=== PATIENT | female | born 1945 | race American Indian/Alaskan Native ===

== ENCOUNTER 2017-06-08 13:41 | Inpatient (IN) | payer MEDICARE, BC ==
[2017-06-08 13:46] VITALS: BMI 23.8
[2017-06-08] MEDS ORDERED: Albuterol-Ipratrop 3 mg / 0.5 (3 ml) UD IH STA ×2 (13:57→17:51)
--- NOTE | 2017-06-08 14:04 | ED PDOC ---
Arrival/HPI - General Chief Complaint: Shortness Of Breath Time Seen by Provider: 06/08/17 13:50 Historian: Patient - Critical Care Critical Care Minutes: 30 minutes - History of Present Illness Narrative History of Present Illness (Text): 06/08/17 14:02 72 year old female, whose past medical history includes, asthma, COPD, pulmonary hypertension, and CHF presents to the emergency department complaining of shortness of breath for the past 3 days. Patient reports she's been using her nebulizer at home with no relief. Patient reports cough congestion, but denies ever smoking, drinking, any chest pain, fever, chills, edema, nausea, vomiting, headache, dizziness, or any other complaints. Time/Duration: Other (3 days ) Symptom Onset: Gradual Symptom Course: Unchanged Activities at Onset: Light Context: Home Associated Symptoms (Text): 06/08/17 14:26 Several day history of increasing shortness of breath along with cough congestion and URI. No chest or back pain. No relief with her home nebulizer. No fever or chills. Past Medical History - Provider Review Nursing Documentation Reviewed: Yes - Infectious Disease Hx of Infectious Diseases: None - Tetanus Immunization Tetanus Immunization: Unknown - Reproductive Menopause: Yes - Cardiac Hx Hypertension: Yes - Pulmonary Hx Chronic Obstructive Pulmonary Disease (COPD): Yes - Neurological Hx Neurological Disorder: Yes (Concussion) - HEENT Hx HEENT Disorder: No - Renal Hx Renal Disorder: No - Endocrine/Metabolic Hx Hypothyroidism: Yes - Hematological/Oncological Hx Blood Disorders: No - Integumentary Hx Dermatological Disorder: No - Musculoskeletal/Rheumatological Hx Falls: Yes (past) - Gastrointestinal Hx Gastrointestinal Disorders: No - Genitourinary/Gynecological Hx Reproductive Disorders: Yes (hyst) - Psychiatric Hx Psychophysiologic Disorder: No Hx Substance Use: No - Surgical History Hx Hysterectomy: Yes - Anesthesia Hx Anesthesia: Yes Hx Anesthesia Reactions: No Hx Malignant Hyperthermia: No - Suicidal Assessment Feels Threatened In Home Enviroment: No Family/Social History - Physician Review Nursing Documentation Reviewed: Yes Family/Social History: No Known Family HX Smoking Status: Never Smoked Hx Alcohol Use: No Hx Substance Use: No Hx Substance Use Treatment: No Allergies/Home Meds Allergies/Adverse Reactions: Allergies peanut Allergy (Verified 01/20/16 18:02) ANAPHYLAXIS Home Medications: Home Meds Medication Instructions Recorded Confirmed Levothyroxine [Synthroid] 0.05 mg PO DAILY 03/15/14 06/08/17 Simvastatin 10 mg PO DAILY 03/15/14 06/08/17 Aspirin 325 mg PO DAILY 10/06/15 06/08/17 Review of Systems - Physician Review All systems were reviewed & negative as marked: Yes - Review of Systems Constitutional: absent: Fevers, Other (Chills) Respiratory: SOB, Cough (cough congestion), Wheezing. absent: Sputum Cardiovascular: absent: Chest Pain, Palpitations, Syncope Gastrointestinal: absent: Abdominal Pain, Diarrhea, Nausea, Vomiting Musculoskeletal: absent: Other ((-)Edema) Neurological: absent: Headache, Dizziness Physical Exam Vital Signs Reviewed: Yes Vital Signs Temp Pulse Resp BP Pulse Ox 06/08/17 17:44 18 131/80 06/08/17 16:54 131/80 06/08/17 16:16 98.1 F 89 26 H 130/80 94 L 06/08/17 14:27 99.3 F 96 H 22 124/72 91 L 06/08/17 14:10 26 H 74 L Temperature: Afebrile Blood Pressure: Normal Pulse: Regular Respiratory Rate: Tachypneic Appearance: Positive for: Well-Appearing, Uncomfortable Pain Distress: None Mental Status: Positive for: Alert and Oriented X 3 - Systems Exam Head: Present: Atraumatic, Normocephalic Pupils: Present: PERRL Extroacular Muscles: Present: EOMI Conjunctiva: Present: Normal Ears: Present: NORMAL TM. No: Erythema Mouth: Present: Moist Mucous Membranes Pharnyx: No: ERYTHEMA, EXUDATE, TONSILS ENLARGED Neck: Present: Normal Range of Motion Respiratory/Chest: Present: Respiratory Distress (Mild Respiratory Distress), Accessory Muscle Use (with no extractions ), Wheezes (Wheezing bilterally ), Decreased Breath Sounds, Rhonchi (Rhonchi Bilaterally ), Tachypneic. No: Rales , Retracting, Tender to Palpation Cardiovascular: Present: Regular Rate and Rhythm, Normal S1, S2. No: Murmurs Abdomen: Present: Normal Bowel Sounds. No: Tenderness, Distention, Peritoneal Signs, Rebound, Guarding Back: Present: Normal Inspection Upper Extremity: Present: Normal Inspection. No: Cyanosis, Edema Lower Extremity: Present: Normal Inspection. No: Edema Neurological: Present: GCS=15, CN II-XII Intact, Speech Normal, Motor Func Grossly Intact Skin: Present: Warm, Dry, Normal Color. No: Rashes Psychiatric: Present: Alert, Oriented x 3, Normal Insight, Normal Concentration Medical Decision Making ED Course and Treatment: 06/08/17 14:09 Impression: 72 year old female presents complaining of shortness of breath for the past 3 days. Plan: -- ABG -- EKG -- Labs -- Chest X-ray -- Duoneb -- SOLU-Medrol -- O2 via Nasal Cannula -- Reassess and disposition Prior Visits: Notes and results from previous visits were reviewed. Patient was last seen in the emergency department on 01/20/16 presents complaining of shortness of breath for the past few days. Progress Notes: 06/08/17 14:28 EKG shows normal sinus rhythm rate approximately 100 with LVH and no acute ST or T-wave changes similar to EKG of 01/20/2016 06/08/17 16:34 Discussed with Ayla Hernandez Litinski who treated the patient in the emergency department. Admitted to ICU. has been called. 06/08/17 16:37 I do not feel that the patient needs intubation or BiPAP based on clinical indications, even though the patient has hypercarbia. She reports that she feels better after high flow respiratory treatment. She is awake and alert. 06/08/17 17:59 Discussed with , covering for . - Critical Care Critical Care Minutes: 30 minutes - Lab Interpretations Lab Results: 06/08/17 02:30 06/08/17 02:30 Lab Results 06/08/17 14:21: pCO2 112 H*, pO2 73.0 L, HCO3 48.0 H*, ABG pH 7.24 L, ABG Total CO2 51.4 H, ABG O2 Saturation 96.5, ABG O2 Content 10.6 L, ABG Base Excess 17.9 H, ABG Hemoglobin 8.0 L, ABG Carboxyhemoglobin 2.9 H, POC ABG HHb (Measured) 3.4 , ABG Methemoglobin 0.6, ABG O2 Capacity 11.0 L, Hgb O2 Saturation 93.1 L, FiO2 21.0 06/08/17 02:30: Sodium 138, Potassium 4.0, Chloride 90 L, Carbon Dioxide 45 H D , Anion Gap 7 L, BUN 17, Creatinine 0.5 L, Est GFR ( Amer) > 60, Est GFR (Non-Af Amer) > 60, Random Glucose 115 H, Calcium 9.3, Total Bilirubin 0.6, AST 35, ALT 41, Alkaline Phosphatase 53, Lactate Dehydrogenase 538, Total Creatine Kinase 89, Troponin I 0.02 D, NT-Pro-B Natriuret Pep 4020 H, Total Protein 7.8 , Albumin 4.4, Globulin 3.5, Albumin/Globulin Ratio 1.3 06/08/17 02:30: PT 12.6 H, INR 1.15 H, APTT 31.3 06/08/17 02:30: WBC 7.1, RBC 3.82, Hgb 8.0 L, Hct 29.8 L, MCV 78.0 L, MCH 20.9 L , MCHC 26.8 L, RDW 17.7 H, Plt Count 313, MPV 10.3, Gran % 67.7, Lymph % (Auto) 21.3 L, [place] % (Auto) 10.9 H, Eos % (Auto) 0.0 L, Baso % (Auto) 0.1, Gran # 4.79 , Lymph # 1.5, [place] # 0.8 H, Eos # 0.0, Baso # 0.01 I have reviewed the lab results: Yes - RAD Interpretation Radiology Orders: 06/08/17 13:56 CHEST PORTABLE [RAD] Stat Chest 1 view shows no infiltrate effusion or cardiomegaly Supervisor Compressed Yeast: ED Physician - EKG Interpretation Interpreted by ED Physician: Yes Type: 12 lead EKG - Medication Orders Current Medication Orders: Doxycycline Hyclate 100 mg/ (Sodium Chloride) 100 mls @ 100 mls/hr IVPB Q12 [facility] PRN Reason: Protocol Ceftriaxone Sodium (Rocephin 1 Gram Ivpb) 1 gm in 100 mls @ 100 mls/hr IVPB DAILY [facility] PRN Reason: Protocol Methylprednisolone (Solu-Medrol) 40 mg IVP Q6H [facility] Pantoprazole Sodium (Protonix Ec Tab) 40 mg PO 0600,1600 [facility] Discontinued Medications Albuterol/Ipratropium (Duoneb 3 Mg/0.5 Mg (3 Ml) Ud) 3 ml IH ONCE STA Stop: 06/08/17 13:58 Last Admin: 06/08/17 14:07 Dose: 3 ml Albuterol/Ipratropium (Duoneb 3 Mg/0.5 Mg (3 Ml) Ud) 6 ml IH STAT STA Stop: 06/08/17 17:52 Enoxaparin Sodium (Lovenox) 40 mg SC STAT STA PRN Reason: Protocol Stop: 06/08/17 17:18 Furosemide (Lasix) 40 mg IVP ONCE ONE Stop: 06/08/17 15:30 Last Admin: 06/08/17 16:54 Dose: 40 mg MAR Blood Pressure Document 06/08/17 16:54 RG (Rec: 06/08/17 16:54 RG [id number]) Blood Pressure Blood Pressure (100/60-150/90 mm Hg) 131/80 IVP Administration Document 06/08/17 16:54 RG (Rec: 06/08/17 16:54 RG [id number]) Charges for Administration # of IVP Administrations 1 Ceftriaxone Sodium (Rocephin 1 Gram Ivpb) 1 gm in 100 mls @ 200 mls/hr IVPB STAT STA PRN Reason: Protocol Stop: 06/08/17 16:26 Last Admin: 06/08/17 17:12 Dose: 200 mls/hr eMAR Start Stop Document 06/08/17 17:12 RG (Rec: 06/08/17 17:12 RG [id number]) Intravenous Solution Start Date 06/08/17 Start Time 17:12 Methylprednisolone (Solu-Medrol) 125 mg IVP STAT STA Stop: 06/08/17 13:57 Last Admin: 06/08/17 14:08 Dose: 125 mg IVP Administration Document 06/08/17 14:08 RG (Rec: 06/08/17 14:08 RG [id number]) Charges for Administration # of IVP Administrations 1 - Scribe Statement The provider has reviewed the documentation as recorded by the Sandy Burns Provider Scribe Attestation: All medical record entries made by the Scribe were at my direction and personally dictated by me. I have reviewed the chart and agree that the record accurately reflects my personal performance of the history, physical exam, medical decision making, and the department course for this patient. I have also personally directed, reviewed, and agree with the discharge instructions and disposition. Disposition/Present on Arrival - Present on Arrival Any Indicators Present on Arrival: No History of DVT/PE: No History of Uncontrolled Diabetes: No Urinary Catheter: No History of Decub. Ulcer: No History Surgical Site Infection Following: None - Disposition Have Diagnosis and Disposition been Completed?: Yes Diagnosis: Hypercapnia, COPD exacerbation, Congestive heart failure (CHF), Asthma exacerbation, Hypercapnic respiratory failure, Respiratory distress Disposition: HOSPITALIZED Disposition Time: 16:36 Patient Plan: Admission, ICU Patient Problems: Current Active Problems Problem Status Onset Asthma exacerbation Acute COPD exacerbation Acute Congestive heart failure (CHF) Acute Hypercapnia Acute Hypercapnic respiratory failure Acute Respiratory distress Acute Condition: CRITICAL
[2017-06-08 14:25] LABS: ARTERIAL BLOOD GAS O2 CONTENT 10.6 ML/dl (15-23); ARTERIAL BLOOD GAS PH 7.24 (7.35-7.45); ARTERIAL BLOOD HGB O2 SAT 93.1 % (95.0-98.0); CARBOXYHEMOGLOBIN 2.9 % (0.5-1.5); HHB 3.4 % (0-5); METHEMOGLOBIN 0.6 % (0.0-3.0)
--- NOTE | 2017-06-08 14:58 | CARD ---
APPROVED REPORT EKG Measurement Heart [id number] <Conclusion> Sinus tachycardia Left ventricular hypertrophy with repolarization abnormality Abnormal ECG
[2017-06-08 15:23] LABS: BASO # 0.01 K/mm3 (0.0-2.0); BASO % 0.1 % (0.0-3.0); GRAN # 4.79 (1.4-6.5); GRAN % 67.7 % (50.0-68.0); HEMATOCRIT 29.8 % (36.0-48.0); INR 1.15 (0.93-1.08); LYMPH # 1.5 (1.2-3.4); LYMPH % 21.3 % (22.0-35.0); MEAN CORPUSCULAR HEMOGLOBIN 20.9 pg (25.0-35.0); MEAN CORPUSCULAR HGB CONC 26.8 g/dl (31.0-37.0); MEAN PLATELET VOLUME 10.3 fl (7.0-11.0); MONO # 0.8 (0.1-0.6); MONO % 10.9 % (1.0-6.0); PARTIAL THROMBOPLASTIN TIME 31.3 Seconds (25.1-36.5); RED CELL DISTRIBUTION WIDTH 17.7 % (11.5-14.5); WHITE BLOOD COUNT 7.1 10^3/ul (4.5-11.0)
[2017-06-08 15:27] LABS: TROPONIN I 0.02 ng/mL
[2017-06-08] MEDS ORDERED: cefTRIAXone 1 gm 1 GM/100 ML BAG IVPB STA (15:57)
[2017-06-08 16:13] LABS: BLOOD UREA NITROGEN 17 mg/dL (7-21); CALCIUM 9.3 mg/dL (8.4-10.5); CARBON DIOXIDE 45 mmol/L (21-33); CHLORIDE 90 mmol/L (98-107); GFR AFRICAN-AMERICAN > 60; GLUCOSE,RANDOM 115 mg/dL (70-110); SODIUM 138 mmol/L (132-148); TOTAL PROTEIN 7.8 g/dL (5.8-8.3)
[2017-06-08 16:14] LABS: ALKALINE PHOSPHATASE 53 U/L (38-126); ALT/SGPT 41 U/L (7-56); AST/SGOT 35 U/L (14-36); BILIRUBIN,TOTAL 0.6 mg/dL (0.2-1.3)
[2017-06-08] MEDS ORDERED: Enoxaparin 40 mg Syringe SC STA (17:17)
--- NOTE | 2017-06-08 18:04 | RAD ---
HISTORY: sob COMPARISON: 01/21/2016 FINDINGS: LUNGS: No active pulmonary disease. PLEURA: No significant pleural effusion identified, no pneumothorax apparent. CARDIOVASCULAR: Normal. OSSEOUS STRUCTURES: No significant abnormalities. VISUALIZED UPPER ABDOMEN: Normal. OTHER FINDINGS: None. IMPRESSION: No active disease.
[2017-06-08] MEDS: MethylPREDNISolone 40 mg Vial IVP SCH ×2 (18:25→22:38)
--- NOTE | 2017-06-08 18:39 | CP.PCM.CON ---
<Zaheer Ballard - Last Filed: 06/08/17 18:33> History of Present Illness - History of Present Illness History of Present Illness: Zaheer Ballard D.O. PGY-2, Critical Care Consultation 72 year old female with a PMH of asthma, COPD, pulmonary hypertension, and diastolic CHF who presents to [facility] with complaints of shortness of breath for the past 2-3 days. Patient was seen and examined at bedside with son present. Patient is somewhat lethargic but is arousable and able to answer questions. Patient has been having progressively worsening shortness of breath over these last few days despite using her nebulizers at home. Some coughing noted but non- productive. Patient has required intubation multiple times in the past for similar issues. Patient usually follows outpatient with Dr. Sanchez for pulmonology and Dr. Parry for cardiology for a "heart murmur." No recent changes in medications, recent travel, or sick contacts. Review of Systems - Constitutional Constitutional: absent: Anorexia, Chills - EENT Eyes: absent: Blind Spots, Blurred Vision Ears: absent: Decreased Hearing, Ear Discharge Nose/Mouth/Throat: absent: Epistaxis, Nasal Congestion - Cardiovascular Cardiovascular: Dyspnea. absent: Chest Pain, Diaphoresis, Leg Edema - Respiratory Respiratory: Cough, Dyspnea. absent: Hemoptysis - Gastrointestinal Gastrointestinal: absent: Nausea, Vomiting - Genitourinary Genitourinary: absent: Dysuria, Pyuria - Musculoskeletal Musculoskeletal: absent: Numbness, Tingling - Integumentary Integumentary: absent: Pruritus, Rash - Neurological Neurological: Confusion. absent: Focal Weakness Past Patient History - Infectious Disease Hx of Infectious Diseases: None - Tetanus Immunizations Tetanus Immunization: Unknown - Past Social History Smoking Status: Never Smoked - CARDIAC Hx Hypertension: Yes - PULMONARY Hx Chronic Obstructive Pulmonary Disease (COPD): Yes - NEUROLOGICAL Hx Neurological Disorder: Yes (Concussion) - HEENT Hx HEENT Problems: No - RENAL Hx Chronic Kidney Disease: No - ENDOCRINE/METABOLIC Hx Hypothyroidism: Yes - HEMATOLOGICAL/ONCOLOGICAL Hx Blood Disorders: No - INTEGUMENTARY Hx Dermatological Problems: No - MUSCULOSKELETAL/RHEUMATOLOGICAL Hx Falls: Yes (past) - GASTROINTESTINAL Hx Gastrointestinal Disorders: No - GENITOURINARY/GYNECOLOGICAL Hx Reproductive Disorders: Yes (hyst) - PSYCHIATRIC Hx Psychophysiologic Disorder: No Hx Substance Use: No - SURGICAL HISTORY Hx Hysterectomy: Yes - ANESTHESIA Hx Anesthesia: Yes Hx Anesthesia Reactions: No Hx Malignant Hyperthermia: No Meds Allergies/Adverse Reactions: Allergies Allergy/AdvReac Type Severity Reaction Status Date / Time peanut Allergy ANAPHYLAXIS Verified 01/20/16 18:02 - Medications Medications: Current Medications Doxycycline Hyclate 100 mg/ (Sodium Chloride) 100 mls @ 100 mls/hr IVPB Q12 [facility] PRN Reason: Protocol Ceftriaxone Sodium (Rocephin 1 Gram Ivpb) 1 gm in 100 mls @ 100 mls/hr IVPB DAILY [facility] PRN Reason: Protocol Methylprednisolone (Solu-Medrol) 40 mg IVP Q6H [facility] Last Admin: 06/08/17 18:25 Dose: Not Given Pantoprazole Sodium (Protonix Ec Tab) 40 mg PO 0600,1600 [facility] Physical Exam - Constitutional Appears: No Acute Distress - Head Exam Head Exam: ATRAUMATIC, NORMOCEPHALIC - Eye Exam Eye Exam: EOMI, PERRL. absent: Scleral icterus - ENT Exam ENT Exam: Mucous Membranes Moist, Normal Oropharynx - Neck Exam Neck exam: Positive for: Normal Inspection. Negative for: Tenderness - Respiratory Exam Respiratory Exam: Wheezes (diffuse). absent: Rales, Rhonchi - Cardiovascular Exam Cardiovascular Exam: REGULAR RHYTHM, +S1, +S2, Systolic Murmur (3/6). absent: Gallop, Rubs - GI/Abdominal Exam GI & Abdominal Exam: Normal Bowel Sounds, Soft. absent: Distended, Tenderness - Extremities Exam Extremities exam: Positive for: normal capillary refill, pedal pulses present. Negative for: calf tenderness, tenderness - Back Exam Back exam: absent: CVA tenderness (L), CVA tenderness (R) - Neurological Exam Additional comments: awake, lethargic but arousable, follows commands, AAOx3(not to time, but to person/place/situation), coherent speech - Skin Skin Exam: Dry, Warm Results - Vital Signs Recent Vital Signs: Last Vital Signs Temp 98.1 F 06/08/17 16:16 Pulse 89 06/08/17 16:16 Resp 18 06/08/17 17:44 BP 131/80 06/08/17 17:44 Pulse Ox 94 L 06/08/17 16:16 - Labs Result Diagrams: 06/08/17 02:30 06/08/17 02:30 Assessment & Plan - Assessment and Plan (Free Text) Assessment: 72 year old female with a PMH of asthma, COPD, pulmonary hypertension, and diastolic CHF who presents with complaints of shortness of breath for the past 2 -3 days Plan: Neurologic AAOx3(person/place/situation but not time), otherwise nonfocal Likely CO2 narcosis which will resolve with treatment Will obtain neurochecks q4x6 and monitor closely Cardiovascular Previous echo 01/03/17 shows EF 66%, LVH with good LV function, moderately dilated LA, mild-mod MR, mild TR, and moderate pulmonary HTN RVSP [id number] Parry consulted Troponins negative, will trend BNP elevated HD stable at this time Will start furosemide 40qd Cont monitor clinically Pulmnologic Acute on chronic hypercapnic respiratory distress with acidosis, very elevated pco2 and , improved with duonebs and solumedrol Will start on doxycyline and ceftriaxone D1 Continue solumedrol 40q6 Continue nebs KRISTINE and PRN, will give a double dose now Will start BIPAP 06/25/30%/12 HOB 30 Repeat ABG in 4 hours and tomorrow AM GI NPO given mental status Cont GI ppx Heme Hgb lower than known baseline 4 months ago No active signs of bleeding HD stable F/U CBC tomorrow AM Nephro/Electrolytes BUN and Cr intact No electrolyte abnormalities Will monitor IxOs GI/DVT ppx: protonix/SCDs Patient was seen and examined and case was discussed at length with attending physician. - Date & Time Date: 06/08/17 Time: 18:00 <Ronny Rodriguez - Last Filed: 06/12/17 17:30> Meds - Medications Medications: Current Medications Acetazolamide (Diamox 250 Mg Tab) 250 mg PO BID [facility] Last Admin: 06/12/17 12:19 Dose: 250 mg Benzonatate (Tessalon Perles) 200 mg PO TID [facility] Last Admin: 06/12/17 15:35 Dose: 200 mg Enoxaparin Sodium (Lovenox) 40 mg SC DAILY [facility] PRN Reason: Protocol Last Admin: 06/12/17 10:34 Dose: 40 mg Ergocalciferol (Drisdol 50,000 Intl Units Cap) 1 cap PO Q7D [facility] Last Admin: 06/11/17 20:24 Dose: 1 cap Doxycycline Hyclate 100 mg/ (Sodium Chloride) 100 mls @ 100 mls/hr IVPB Q12 [facility] PRN Reason: Protocol Last Admin: 06/12/17 10:35 Dose: 100 mls/hr Ceftriaxone Sodium (Rocephin 1 Gram Ivpb) 1 gm in 100 mls @ 100 mls/hr IVPB DAILY [facility] PRN Reason: Protocol Last Admin: 06/12/17 10:34 Dose: 100 mls/hr Iron Sucrose 200 mg/ Sodium (Chloride) 110 mls @ 110 mls/hr IVPB DAILY [facility] Stop: 06/13/17 10:59 Last Admin: 06/12/17 10:11 Dose: 110 mls/hr Levalbuterol HCl (Xopenex) 0.63 mg IH [id number] PRN PRN Reason: Shortness of Breath Methylprednisolone (Solu-Medrol) 20 mg IVP Q12 [facility] Last Admin: 06/12/17 10:33 Dose: 20 mg Pantoprazole Sodium (Protonix Ec Tab) 40 mg PO 0600,1600 [facility] Last Admin: 06/12/17 15:35 Dose: 40 mg Polyethylene Glycol (Miralax) 17 gm PO BID [facility] Last Admin: 06/12/17 10:34 Dose: 17 gm Results - Vital Signs Recent Vital Signs: Last Vital Signs Temp 98.4 F 06/12/17 16:00 Pulse 70 06/12/17 16:00 Resp 18 06/12/17 16:00 BP 134/82 06/12/17 16:00 Pulse Ox 98 06/12/17 16:00 - Labs Result Diagrams: 06/12/17 07:35 06/12/17 12:00 Labs: Laboratory Results - last 24 hr 06/12/17 06/12/17 06/12/17 07:35 07:35 12:00 WBC 5.4 RBC 4.43 Hgb 10.5 L Hct 36.4 MCV 82.2 MCH 23.7 L MCHC 28.8 L RDW 18.4 H Plt Count 213 MPV 11.2 H Gran % 72.4 H Lymph % (Auto) 20.0 L [place] % (Auto) 7.6 H Eos % (Auto) 0.0 L Baso % (Auto) 0.0 Gran # 3.90 Lymph # 1.1 L [place] # 0.4 Eos # 0.0 Baso # 0.00 Sodium 138 138 Potassium 4.5 4.3 Chloride 95 L 93 L Carbon Dioxide 42 H 40 H Anion Gap 6 L 9 L BUN 19 19 Creatinine 0.5 L 0.6 L Est GFR ( Amer) > 60 > 60 Est GFR (Non-Af Amer) > 60 > 60 Random Glucose 82 99 Calcium 9.4 9.6 Phosphorus 2.9 Magnesium 2.3 H Total Bilirubin 0.6 0.8 Direct Bilirubin 0.6 H AST 28 31 ALT 42 49 Alkaline Phosphatase 49 59 Lactate Dehydrogenase 424 Total Creatine Kinase 24 L Troponin I < 0.01 D NT-Pro-B Natriuret Pep 1360 H Total Protein 6.6 7.1 Albumin 3.6 3.9 Globulin 3.0 3.2 Albumin/Globulin Ratio 1.2 1.2 Attending/Attestation - Attestation I have personally seen and examined this patient.: Yes I have fully participated in the care of the patient.: Yes I have reviewed all pertinent clinical information: Yes Notes (Text): 06/12/17 17:29 72 yo female with asthma exacerbation in the setting of CAP. Will take to ICU--> serial ABG, bronchodilators, steroid taper, abx, bpap. low threshold for intubation ccm time 40 min
[2017-06-08] MEDS ORDERED: Albuterol-Ipratrop 3 mg / 0.5 (3 ml) UD IH PRN (18:49)
[2017-06-08 19:05] LABS: TROPONIN I 0.02 ng/mL
[2017-06-08 19:36] LABS: PHOSPHOROUS 4.6 mg/dL (2.5-4.5)
[2017-06-08] MEDS ORDERED: Albuterol-Ipratrop 3 mg / 0.5 (3 ml) UD IH SCH (20:00)
[2017-06-08 20:43] LABS: T4 6.3 ug/dL (5.5-11.0)
[2017-06-08 20:44] LABS: FREE T4 0.87 ng/dL (0.78-2.19); THYROID STIMULATING HORMONE 2.46 mIU/mL (0.46-4.68)
[2017-06-08 21:51] LABS: TROPONIN I 0.03 ng/mL
[2017-06-08 21:55] LABS: ARTERIAL BLOOD GAS O2 CAPACITY 11.3 mL/dl (16-24); ARTERIAL BLOOD GAS O2 CONTENT 10.7 ML/dl (15-23); ARTERIAL BLOOD GAS PH 7.26 (7.35-7.45); ARTERIAL BLOOD HGB O2 SAT 90.8 % (95.0-98.0); CARBOXYHEMOGLOBIN 2.9 % (0.5-1.5); HHB 5.1 % (0-5); METHEMOGLOBIN 1.2 % (0.0-3.0)
[2017-06-08 21:57] LABS: ARTERIAL BLOOD GAS HCO3 50.7 mmol/L (21-28)
[2017-06-08 23:02] LABS: URIC ACID 2.8 mg/dL (2.5-6.2)
[2017-06-09] MEDS ORDERED: Sodium Chloride 0.9% 500 ML IV STA (00:21)
[2017-06-09 00:47] LABS: ARTERIAL BLOOD GAS O2 CAPACITY 11.8 mL/dl (16-24); ARTERIAL BLOOD GAS O2 CONTENT 11.6 ML/dl (15-23); ARTERIAL BLOOD GAS PH 7.29 (7.35-7.45); ARTERIAL BLOOD HGB O2 SAT 93.8 % (95.0-98.0); METHEMOGLOBIN 1.2 % (0.0-3.0)
[2017-06-09] MEDS ORDERED: Digoxin 500 mcg/2ml (0.5 mg/2ml) Inj IVP STA ×2 (01:00→01:36)
[2017-06-09 01:04] LABS: ALB/GLOB RATIO 1.2 (1.1-1.8); ALKALINE PHOSPHATASE 63 U/L (38-126); ALT/SGPT 33 U/L (7-56); AST/SGOT 36 U/L (14-36); BILIRUBIN,DIRECT 0.5 mg/dL (0.0-0.4); BILIRUBIN,TOTAL 0.5 mg/dL (0.2-1.3); BLOOD UREA NITROGEN 17 mg/dL (7-21); CALCIUM 9.1 mg/dL (8.4-10.5); CHLORIDE 84 mmol/L (98-107); CHOLESTEROL 207 mg/dL (130-200); GFR AFRICAN-AMERICAN > 60; GLUCOSE,RANDOM 153 mg/dL (70-110); PHOSPHOROUS 5.2 mg/dL (2.5-4.5); POTASSIUM 3.9 mmol/L (3.6-5.0); SODIUM 139 mmol/L (132-148); TOTAL PROTEIN 8.1 g/dL (5.8-8.3)
[2017-06-09 01:13] LABS: GRAN # 6.84 (1.4-6.5); GRAN % 93.8 % (50.0-68.0); HEMATOCRIT 35.4 % (36.0-48.0); LYMPH # 0.4 (1.2-3.4); LYMPH % 5.8 % (22.0-35.0); MEAN CORPUSCULAR HEMOGLOBIN 20.8 pg (25.0-35.0); MEAN CORPUSCULAR HGB CONC 25.1 g/dl (31.0-37.0); MEAN PLATELET VOLUME 10.5 fl (7.0-11.0); MONO % 0.4 % (1.0-6.0); PLATELET COUNT 322 10^3/uL (120.0-450.0); WHITE BLOOD COUNT 7.3 10^3/ul (4.5-11.0)
[2017-06-09 01:17] LABS: CARBON DIOXIDE 45 mmol/L (21-33)
[2017-06-09 01:21] LABS: MEAN CELL VOLUME 82.7 fl (80.0-105.0)
[2017-06-09 01:23] LABS: ALB/GLOB RATIO 1.2 (1.1-1.8)
[2017-06-09 01:37] LABS: ARTERIAL BLOOD GAS HCO3 47.1 mmol/L (21-28)
[2017-06-09 01:44] VITALS: PULSE 139
[2017-06-09 01:48] LABS: TROPONIN I 0.02 ng/mL
[2017-06-09 01:58] LABS: ALB/GLOB RATIO 1.2 (1.1-1.8); ALKALINE PHOSPHATASE 65 U/L (38-126); ALT/SGPT 43 U/L (7-56); AST/SGOT 32 U/L (14-36); BAND 4 % (0-2); BILIRUBIN,TOTAL 0.4 mg/dL (0.2-1.3); BLOOD UREA NITROGEN 17 mg/dL (7-21); CALCIUM 9.4 mg/dL (8.4-10.5); CHLORIDE 85 mmol/L (98-107); GFR AFRICAN-AMERICAN > 60; GLUCOSE,RANDOM 135 mg/dL (70-110); NEUTROPHIL 90 % (50.0-70.0); PHOSPHOROUS 4.8 mg/dL (2.5-4.5); SODIUM 139 mmol/L (132-148); TOTAL PROTEIN 8.3 g/dL (5.8-8.3)
[2017-06-09 01:59] LABS: ANISOCYTOSIS SLIGHT; HYPOCHROMIA 2+; NUCLEATED RED BLOOD CELL 1 %; OVALOCYTES SLIGHT; PLATELET ESTIMATE NORMAL (NORMAL)
[2017-06-09 02:01] LABS: CARBON DIOXIDE 44 mmol/L (21-33)
[2017-06-09] MEDS ORDERED: Levalbuterol 1.25 MG/3 ML Inhal Soln UD IH ONE (02:28)
--- NOTE | 2017-06-09 03:06 | CP.PCM.PN ---
Subjective - Date & Time of Evaluation Date of Evaluation: 06/09/17 Time of Evaluation: 03:05 (seen earlier.) - Subjective Subjective: Patient was seen because his blood pressure was low, was tachycardic and as per daughter she was more lethargic. Patient awake, has no complaints, opens eyes , moves neck. Monitor was showing sinus tachycardia , atrial fibrillation. Also I was asked to follow up on ABG . Medical record was reviewed. This 72 year old woman was admitted with sob, coughing , congestion, acute hypercarbic hypoxic respiratory failure. Has PMH of COPD, dyslipidemia, HTN, diastolic CHF, hypothyroidism. Objective - Vital Signs/Intake and Output Vital Signs (last 24 hours): Temp Pulse Resp BP Pulse Ox 96.8 F L 128 H 36 H 116/94 H 97 06/09/17 00:00 06/09/17 02:06 06/09/17 02:06 06/09/17 02:06 06/09/17 02:06 - Medications Medications: Current Medications Acetazolamide (Diamox 500 Mg Inj) 250 mg IV Q12 [facility] Stop: 06/09/17 10:01 Last Admin: 06/08/17 23:45 Dose: 250 mg Albuterol/Ipratropium (Duoneb 3 Mg/0.5 Mg (3 Ml) Ud) 3 ml IH [id number] [facility] Last Admin: 06/08/17 19:52 Dose: 3 ml Albuterol/Ipratropium (Duoneb 3 Mg/0.5 Mg (3 Ml) Ud) 3 ml IH Q2H PRN PRN Reason: Shortness of Breath Diltiazem HCl (Cardizem) 30 mg PO QID [facility] Enoxaparin Sodium (Lovenox) 40 mg SC DAILY [facility] PRN Reason: Protocol Doxycycline Hyclate 100 mg/ (Sodium Chloride) 100 mls @ 100 mls/hr IVPB Q12 [facility] PRN Reason: Protocol Last Admin: 06/08/17 21:15 Dose: 100 mls/hr Ceftriaxone Sodium (Rocephin 1 Gram Ivpb) 1 gm in 100 mls @ 100 mls/hr IVPB DAILY [facility] PRN Reason: Protocol Levalbuterol HCl (Xopenex) 0.63 mg IH [id number] [facility] Methylprednisolone (Solu-Medrol) 40 mg IVP Q6H [facility] Last Admin: 06/08/17 22:38 Dose: 40 mg Pantoprazole Sodium (Protonix Ec Tab) 40 mg PO 0600,1600 [facility] - Labs Labs: 06/09/17 01:00 06/09/17 01:00 PT 12.6 SECONDS (9.4-12.5) H 06/08/17 02:30 INR 1.15 (0.93-1.08) H 06/08/17 02:30 APTT 31.3 Seconds (25.1-36.5) 06/08/17 02:30 - Constitutional Appears: Well, No Acute Distress - Head Exam Head Exam: ATRAUMATIC, NORMAL INSPECTION, NORMOCEPHALIC - Eye Exam Eye Exam: Normal appearance - ENT Exam ENT Exam: Normal External Ear Exam - Neck Exam Neck Exam: Normal Inspection - Respiratory Exam Respiratory Exam: Wheezes (Bilateral.), NORMAL BREATHING PATTERN. absent: Accessory Muscle Use - Cardiovascular Exam Cardiovascular Exam: Tachycardia, REGULAR RHYTHM. absent: JVD - GI/Abdominal Exam GI & Abdominal Exam: absent: Distended - Rectal Exam Rectal Exam: Deferred - Exam Additional comments: Deferred. - Extremities Exam Additional comments: Deferred. - Back Exam Back Exam: NORMAL INSPECTION - Neurological Exam Neurological Exam: Alert, Awake - Psychiatric Exam Psychiatric exam: Normal Affect, Normal Mood - Skin Skin Exam: Normal Color Assessment and Plan - Assessment and Plan (Free Text) Assessment: Hypotension. Sinus tachycardia. Atrial fibrillation. COPD. CHF. Hypercarbic hypoxic respiratory failure. HTN. Dyslipidemia. Hypothyroidism. Plan: EKG --> s. tachycardia non specific changes. Repeat ABG noted. Normal saline bolus of 500 cc and then 250 cc were given. Digoxin 0.25 mg IV x 2 given. BiPAP setting was changed to 16/7 . Lab work ordered. Troponin was negative.Magnesium , potassium were in normal range.D-dimer was <200. Will continue present management.
[2017-06-09] MEDS ORDERED: Sodium Chloride 0.9% 250 ML IV STA (04:11)
[2017-06-09] MEDS: Pantoprazole 40 mg EC Tab PO SCH ×2 (05:31→17:20)
[2017-06-09] MEDS: MethylPREDNISolone 40 mg Vial IVP SCH ×4 (05:33→22:15)
[2017-06-09 05:49] LABS: ARTERIAL BLOOD GAS O2 CAPACITY 10.8 mL/dl (16-24); ARTERIAL BLOOD GAS O2 CONTENT 10.7 ML/dl (15-23); ARTERIAL BLOOD GAS PH 7.31 (7.35-7.45); ARTERIAL BLOOD HGB O2 SAT 95.4 % (95.0-98.0); CARBOXYHEMOGLOBIN 2.8 % (0.5-1.5); HHB 0.9 % (0-5); METHEMOGLOBIN 0.9 % (0.0-3.0)
[2017-06-09 06:03] LABS: ARTERIAL BLOOD GAS HCO3 47.3 mmol/L (21-28)
[2017-06-09 07:00] LABS: GRAN # 3.89 (1.4-6.5); GRAN % 90.7 % (50.0-68.0); HEMATOCRIT 33.8 % (36.0-48.0); LYMPH # 0.4 (1.2-3.4); LYMPH % 8.4 % (22.0-35.0); MEAN CELL VOLUME 81.4 fl (80.0-105.0); MEAN CORPUSCULAR HEMOGLOBIN 20.5 pg (25.0-35.0); MEAN CORPUSCULAR HGB CONC 25.1 g/dl (31.0-37.0); MEAN PLATELET VOLUME 10.6 fl (7.0-11.0); MONO % 0.9 % (1.0-6.0); RED CELL DISTRIBUTION WIDTH 17.8 % (11.5-14.5); WHITE BLOOD COUNT 4.3 10^3/ul (4.5-11.0)
--- NOTE | 2017-06-09 07:22 | CON ---
PULMONARY CONSULTATION REASON FOR CONSULTATION: Chronic obstructive pulmonary disease. REFERRING PHYSICIAN: Garett Rodríguez MD History is obtained via extensive discussion with the night nurse and pediatric medical assistant. I have also discussed the case with the daughter at length. I have also reviewed the chart at length. The patient does not appear to be an adequate historian at this point in time. HISTORY OF PRESENT ILLNESS: The patient is a 72-year-old female, with past medical history significant for advanced chronic obstructive pulmonary disease, asthma, multiple episodes of respiratory failure in the past, pulmonary hypertension, thyroid disease, who presents to [facility] with a 3-day history of worsening shortness of breath at rest, dyspnea on exertion, and cough. There is no history of sputum production. There is no history of chest pain, coughing up of blood, or chest pain-made worse with deep respirations. There is no history of temperatures, chills or infectious exposure. There is no history of night sweats, weight loss or appetite change prior to the above events. No history of leg or calf pains. No history of syncope or diaphoresis. No history of recent travel or trauma. REVIEW OF SYSTEMS: No history of nausea, vomiting, or diarrhea. No acute urinary symptoms. No new musculoskeletal complaints. Rest of the review of system is negative. ALLERGIES: TO PEANUTS. SOCIAL HISTORY: Negative for tobacco and negative for alcohol. The patient's was a former smoker. FAMILY HISTORY: No inheritable diseases. HOME MEDICATIONS: Include simvastatin, Protonix, Synthroid, hydrochlorothiazide, Tylenol, and DuoNeb. PHYSICAL EXAMINATION: GENERAL: The patient is lethargic this morning. She is mildly short of breath, but in no acute distress. VITAL SIGNS: Temperature is 98.3, pulse is 98, respirations 20/22, blood pressure 86/55. Oxygen saturation on BiPAP is currently 99%. HEENT: Normocephalic, atraumatic. NECK: No JVD. CARDIOVASCULAR: Positive S1, S2. No S3 gallop. LUNGS: Decreased breath sounds at the bases. Mild rhonchi and wheezing bilaterally. EXTREMITIES: Mild edema. No cyanosis, no clubbing. Calves are nontender to palpation. GI: Abdomen is soft, nontender and nondistended. Bowel sounds are positive. SKIN: No acute rash. NEUROLOGIC: Limited at the present time. PERTINENT LABORATORY DATA: Chest x-ray was done yesterday and reviewed. There is no active disease present. Arterial blood gas was done this morning on BiPAP of 02/02 with 30% oxygen. Results are: PH 7.31, pCO2 of 94, pO2 of 83. Initial arterial blood gas was done on an unknown FiO2. Results are: PH 7.24, pCO2 of 112, pO2 of 73. CBC: White count 7.3, hemoglobin 8.9, hematocrit 35.4, platelets of 322. D-dimer is negative at less than 200. Complete metabolic profile: Chloride 85, carbon dioxide 44, glucose 135, phosphorus 4.8. Rest of the metabolic profile is within normal limits. B-type nature peptide done yesterday-[id number]. IMPRESSION: 1. Respiratory failure. 2. Advanced chronic obstructive pulmonary disease. 3. Asthma. 4. Acute bronchitis. 5. Cardiac arrhythmias. 6. Anemia. PLAN: Again, I did discuss the case with the pediatric medical assistant and night nurse at length. I have also discussed the case with the patient's daughter at length. As above, the patient is not an adequate historian at the present time. The patient presents to [facility] with a 3-day history of worsening pulmonary symptoms. I did review the chest x-ray as above. It shows no active disease. I have also reviewed all the arterial blood gases that were done during this hospital admission. The arterial blood gases have continued to improve-- with a significant decrease in the pCO2 ,as well as a significant increase in the pH. I will continue with the current BiPAP settings for now. On physical exam, the patient is in [id number] bronchospasm. I will continue with the current nebulizer treatments and add inhaled Pulmicort this morning. I will also try decreasing the intravenous steroids this morning. I have also discussed the case with Dr. Porter (house physician) at length. The patient did have runs of atrial fibrillation during the night. Cardiology evaluation with Dr. Parry has been ordered. GI evaluation has also been ordered for with Dr. Luna-concerning her anemia. The patient's clinical status is improved-compared to the initial presentation. However, she remains very guarded at this point in time. I will discuss the above with the entire ICU team the next few moments. I will also discuss the above with the attending physician later this morning. Thank you very much for this pulmonary consultation. Edin Aguila MD [facility] # [id number] MIGUEL
[2017-06-09] MEDS: Budesonide 0.5 mg/2 ml Inhal Susp UD IH SCH ×2 (07:54→20:20)
[2017-06-09] MEDS ORDERED: Levalbuterol 0.63 MG/3 ML Inhal Soln UD IH SCH (08:00)
[2017-06-09 08:06] LABS: IRON 11 ug/dL (45-180)
[2017-06-09] MEDS: Enoxaparin 40 mg Syringe SC SCH (10:17)
[2017-06-09] MEDS: cefTRIAXone 1 gm 1 GM/100 ML BAG IVPB SCH (10:18)
[2017-06-09] MEDS: POLYETHYLENE GLYCOL 3350 17 GM/Dose PACKET PO SCH ×2 (13:16→17:20)
[2017-06-09] MEDS: Levalbuterol 0.63 MG/3 ML Inhal Soln UD IH SCH ×2 (13:28→20:20)
[2017-06-09] MEDS: Acetylcysteine 20% Inhal Soln (4ml) IH SCH ×2 (13:28→20:20)
--- NOTE | 2017-06-09 13:49 | CP.PCM.PN ---
<Alberta Harris - Last Filed: 06/09/17 14:51> Subjective - Date & Time of Evaluation Date of Evaluation: 06/09/17 Time of Evaluation: 09:30 - Subjective Subjective: Medicine note for Dr. Rodríguez Patient seen and examined at bedside. Patient resting comfortably in bed with no new complaints at this time. Patient says shes feeling better than she did when she got here and the duonebs are helping her. Patient no longer feels short of breath. She denies headache, dizziness, chest pain, palpitations, abdominal pain, N&V, diarrhea, constipation, calf pain. Objective - Vital Signs/Intake and Output Vital Signs (last 24 hours): Temp Pulse Resp BP Pulse Ox 97.7 F 90 18 116/71 97 06/09/17 12:00 06/09/17 13:20 06/09/17 13:20 06/09/17 13:06 06/09/17 13:20 Intake and Output: 06/09/17 06/09/17 06:59 18:59 Intake Total 850 Output Total 300 Balance 550 - Medications Medications: Current Medications Acetylcysteine (Acetylcysteine 20%) 4 ml IH [id number] [facility] Last Admin: 06/09/17 13:28 Dose: 4 ml Benzonatate (Tessalon Perles) 200 mg PO TID [facility] Last Admin: 06/09/17 13:17 Dose: 200 mg Budesonide (Pulmicort Respules) 0.5 mg IH [id number] [facility] Last Admin: 06/09/17 07:54 Dose: 0.5 mg Enoxaparin Sodium (Lovenox) 40 mg SC DAILY K[facility] PRN Reason: Protocol Last Admin: 06/09/17 10:17 Dose: 40 mg Doxycycline Hyclate 100 mg/ (Sodium Chloride) 100 mls @ 100 mls/hr IVPB Q12 K[facility] PRN Reason: Protocol Last Admin: 06/09/17 10:18 Dose: 100 mls/hr Ceftriaxone Sodium (Rocephin 1 Gram Ivpb) 1 gm in 100 mls @ 100 mls/hr IVPB DAILY [facility]INE PRN Reason: Protocol Last Admin: 06/09/17 10:18 Dose: 100 mls/hr Iron Sucrose 200 mg/ Sodium (Chloride) 110 mls @ 110 mls/hr IVPB DAILY [facility] Stop: 06/11/17 10:59 Last Admin: 06/09/17 13:14 Dose: 110 mls/hr Levalbuterol HCl (Xopenex) 0.63 mg IH [id number] [facility] Last Admin: 06/09/17 13:28 Dose: 0.63 mg Methylprednisolone (Solu-Medrol) 40 mg IVP Q8H [facility] Last Admin: 06/09/17 10:18 Dose: 40 mg Pantoprazole Sodium (Protonix Ec Tab) 40 mg PO 0600,1600 [facility] Last Admin: 06/09/17 05:31 Dose: Not Given Polyethylene Glycol (Miralax) 17 gm PO BID [facility] Last Admin: 06/09/17 13:16 Dose: 17 gm - Labs Labs: 06/09/17 06:30 06/09/17 01:00 PT 12.6 SECONDS (9.4-12.5) H 06/08/17 02:30 INR 1.15 (0.93-1.08) H 06/08/17 02:30 APTT 31.3 Seconds (25.1-36.5) 06/08/17 02:30 - Constitutional Appears: Non-toxic, No Acute Distress - Head Exam Head Exam: ATRAUMATIC, NORMOCEPHALIC - Eye Exam Eye Exam: EOMI, Normal appearance - ENT Exam ENT Exam: Mucous Membranes Moist, Normal Oropharynx - Respiratory Exam Respiratory Exam: Wheezes. absent: Rales, Rhonchi - Cardiovascular Exam Cardiovascular Exam: RRR, +S1, +S2, Murmur (3/6 HEMALATHA). absent: Bradycardia, Diastolic murmur, Gallop - GI/Abdominal Exam GI & Abdominal Exam: Soft, Tenderness, Normal Bowel Sounds - Extremities Exam Extremities Exam: Normal Inspection. absent: Calf Tenderness, Pedal Edema - Neurological Exam Neurological Exam: Alert, Awake - Psychiatric Exam Psychiatric exam: Normal Affect, Normal Mood - Skin Skin Exam: Dry, Intact, Warm Assessment and Plan (1) Acute on chronic respiratory failure with hypercapnia Assessment & Plan: * improving * ABG on arrival: * pH: 7.24 * pCO2: 112 * HCO3: 48 * pO2: 73 * ABG today: * pH: 7.31 * pCO2: 94 * HCO3: 47.3 * pO2: 83 * D dimer: <200 * Duonebs * Solumedrol 40 mg IV Q8 * Xopenex 0.63 mg Q6 * Pulmicort 0.5 mg Q12 * Acetylcysteine 20% 4 ml Q6 * Doxy 100 mg Q12 * Ceftriaxone 1g IV QD Status: Acute (2) Diastolic heart failure Assessment & Plan: * Cardiology consulted (Dr. Parry) * Echo (01/03/17): EF 66%, LVH with normal LV function, moderately dilated LA, Mod pulm HTN (RVSP 49), mild-mod MR, mild TR * BNP: 3740 * Trops negative * CXR: no active disease Status: Acute (3) Anemia Assessment & Plan: * H&H: 8.5/33.8 * GI consulted (Dr. Luna) recs appreciated * Iron: 11 (low) * TIBC: 391 * %Sat: 3 (low) * Ferritin: 5.6 * Iron sucrose 200 mg IV QD x3 days Status: Acute <Garett Rodríguez U - Last Filed: 06/15/17 16:33> Objective - Vital Signs/Intake and Output Vital Signs (last 24 hours): Temp Pulse Resp BP Pulse Ox 98 F 69 20 132/81 99 06/13/17 05:56 06/13/17 05:56 06/13/17 05:56 06/13/17 05:56 06/13/17 05:56 - Labs Labs: 06/13/17 06:30 06/13/17 06:30 PT 12.6 SECONDS (9.4-12.5) H 06/08/17 02:30 INR 1.15 (0.93-1.08) H 06/08/17 02:30 APTT 31.3 Seconds (25.1-36.5) 06/08/17 02:30 Attending/Attestation - Attestation I have personally seen and examined this patient.: Yes I have fully participated in the care of the patient.: Yes I have reviewed all pertinent clinical information, including history, physical exam and plan: Yes Notes (Text): Please see/read my dictated notes.
--- NOTE | 2017-06-09 14:01 | CP.PCM.PN ---
<Leo Lynch - Last Filed: 06/09/17 14:25> Subjective - Date & Time of Evaluation Date of Evaluation: 06/09/17 Time of Evaluation: 13:59 - Subjective Subjective: Critical care progress note - Fletcher Casabola PGY2 Patient seen and examined at bedside this morning. No acute overnight events or new complaints were reported. ABG this morning reviewed which showed improvement since she has been on BiPAP 02/02. Denies chest pain, palpitations, abdominal pain, nausea, vomiting. Objective - Vital Signs/Intake and Output Vital Signs (last 24 hours): Temp Pulse Resp BP Pulse Ox 97.7 F 90 18 116/71 97 06/09/17 12:00 06/09/17 13:20 06/09/17 13:20 06/09/17 13:06 06/09/17 13:20 Intake and Output: 06/09/17 06/09/17 06:59 18:59 Intake Total 850 Output Total 300 Balance 550 - Medications Medications: Current Medications Acetylcysteine (Acetylcysteine 20%) 4 ml IH [id number] [facility] Last Admin: 06/09/17 13:28 Dose: 4 ml Benzonatate (Tessalon Perles) 200 mg PO TID [facility] Last Admin: 06/09/17 13:17 Dose: 200 mg Budesonide (Pulmicort Respules) 0.5 mg IH [id number] [facility] Last Admin: 06/09/17 07:54 Dose: 0.5 mg Enoxaparin Sodium (Lovenox) 40 mg SC DAILY K[facility]ST[facility] PRN Reason: Protocol Last Admin: 06/09/17 10:17 Dose: 40 mg Doxycycline Hyclate 100 mg/ (Sodium Chloride) 100 mls @ 100 mls/hr IVPB Q12 K[facility] PRN Reason: Protocol Last Admin: 06/09/17 10:18 Dose: 100 mls/hr Ceftriaxone Sodium (Rocephin 1 Gram Ivpb) 1 gm in 100 mls @ 100 mls/hr IVPB DAILY K[facility]STINE PRN Reason: Protocol Last Admin: 06/09/17 10:18 Dose: 100 mls/hr Iron Sucrose 200 mg/ Sodium (Chloride) 110 mls @ 110 mls/hr IVPB DAILY [facility] Stop: 06/11/17 10:59 Last Admin: 06/09/17 13:14 Dose: 110 mls/hr Levalbuterol HCl (Xopenex) 0.63 mg IH [id number] [facility] Last Admin: 06/09/17 13:28 Dose: 0.63 mg Methylprednisolone (Solu-Medrol) 40 mg IVP Q8H [facility] Last Admin: 06/09/17 10:18 Dose: 40 mg Pantoprazole Sodium (Protonix Ec Tab) 40 mg PO 0600,1600 [facility] Last Admin: 06/09/17 05:31 Dose: Not Given Polyethylene Glycol (Miralax) 17 gm PO BID [facility] Last Admin: 06/09/17 13:16 Dose: 17 gm - Labs Labs: 06/09/17 06:30 06/09/17 01:00 PT 12.6 SECONDS (9.4-12.5) H 06/08/17 02:30 INR 1.15 (0.93-1.08) H 06/08/17 02:30 APTT 31.3 Seconds (25.1-36.5) 06/08/17 02:30 - Constitutional Appears: No Acute Distress - Head Exam Head Exam: ATRAUMATIC, NORMAL INSPECTION, NORMOCEPHALIC - Eye Exam Eye Exam: EOMI, PERRL - ENT Exam ENT Exam: Mucous Membranes Moist - Neck Exam Neck Exam: Normal Inspection - Respiratory Exam Respiratory Exam: Wheezes (bilaterally). absent: Rales, Rhonchi - Cardiovascular Exam Cardiovascular Exam: RRR, +S1, +S2, Murmur (systolic). absent: Gallop, JVD, Rubs - Neurological Exam Neurological Exam: Alert, Awake, Oriented x3 - Psychiatric Exam Psychiatric exam: Normal Affect, Normal Mood - Skin Skin Exam: Dry, Intact, Normal Color, Warm Assessment and Plan - Assessment and Plan (Free Text) Plan: 72 year old female with a PMH of asthma, COPD, pulmonary hypertension, and diastolic CHF who presents with complaints of shortness of breath for the past 2 -3 days Neuro: -awake, alert, oriented x3; responding to questions appropriately -AMS on admission likely secondary to CO2 narcosis, presently resolved -Neurochecks as ordered Cardio: -Echo from 01/03/17 revealed EF of 66%, LVH with good LV function, moderately dilated LA, mild-mod MR, mild TR, and moderate pulmonary HTN RVSP 49 -Troponins negative x3 -Hemodynamically stable, will maintain MAP > 65 -Cardiology consulted - Dr. Parry Pulm: -Patient presented with acute on chronic hypercapnic respiratory failure -Continue with xopenex, pulmicort and solumedrol taper -Continue with rocephin and doxycyline -Tolerated BiPAP well and presently on nasal cannula -Continue with BiPAP at night -HOB> 30' GI: -Protonix for GI prophylaxis -Heart healthy diet Heme: -No overt signs of bleeding -DVT prophylaxis with lovenox Nephro: -BUN/Cr within normal limits -Monitor and replete electrolytes as indicated ID: -afebrile, no leukocytosis -Continue with rocephin and doxycyline Patient seen and case discussed/reviewed with attending, Dr. Modi <Sheldon Modi - Last Filed: 06/09/17 14:37> Objective - Vital Signs/Intake and Output Vital Signs (last 24 hours): Temp Pulse Resp BP Pulse Ox 97.7 F 90 18 116/71 97 06/09/17 12:00 06/09/17 13:20 06/09/17 13:20 06/09/17 13:06 06/09/17 13:20 Intake and Output: 06/09/17 06/09/17 06:59 18:59 Intake Total 850 Output Total 300 Balance 550 - Medications Medications: Current Medications Acetylcysteine (Acetylcysteine 20%) 4 ml IH [id number] [facility] Last Admin: 06/09/17 13:28 Dose: 4 ml Benzonatate (Tessalon Perles) 200 mg PO TID [facility] Last Admin: 06/09/17 13:17 Dose: 200 mg Budesonide (Pulmicort Respules) 0.5 mg IH [id number] [facility] Last Admin: 06/09/17 07:54 Dose: 0.5 mg Enoxaparin Sodium (Lovenox) 40 mg SC DAILY [facility] PRN Reason: Protocol Last Admin: 06/09/17 10:17 Dose: 40 mg Doxycycline Hyclate 100 mg/ (Sodium Chloride) 100 mls @ 100 mls/hr IVPB Q12 [facility] PRN Reason: Protocol Last Admin: 06/09/17 10:18 Dose: 100 mls/hr Ceftriaxone Sodium (Rocephin 1 Gram Ivpb) 1 gm in 100 mls @ 100 mls/hr IVPB DAILY [facility] PRN Reason: Protocol Last Admin: 06/09/17 10:18 Dose: 100 mls/hr Iron Sucrose 200 mg/ Sodium (Chloride) 110 mls @ 110 mls/hr IVPB DAILY [facility] Stop: 06/11/17 10:59 Last Admin: 06/09/17 13:14 Dose: 110 mls/hr Levalbuterol HCl (Xopenex) 0.63 mg IH [id number] [facility] Last Admin: 06/09/17 13:28 Dose: 0.63 mg Methylprednisolone (Solu-Medrol) 40 mg IVP Q8H [facility] Last Admin: 06/09/17 10:18 Dose: 40 mg Pantoprazole Sodium (Protonix Ec Tab) 40 mg PO 0600,1600 [facility] Last Admin: 06/09/17 05:31 Dose: Not Given Polyethylene Glycol (Miralax) 17 gm PO BID [facility] Last Admin: 06/09/17 13:16 Dose: 17 gm - Labs Labs: 06/09/17 06:30 06/09/17 01:00 PT 12.6 SECONDS (9.4-12.5) H 06/08/17 02:30 INR 1.15 (0.93-1.08) H 06/08/17 02:30 APTT 31.3 Seconds (25.1-36.5) 06/08/17 02:30 Assessment and Plan - Assessment and Plan (Free Text) Plan: Patient seen and examined, on rounds with resident, agree with note with following additions/exceptions: Patient is 72yo female with PMhx of Asthma/COPD, a/w hypercapnic resp failure, requiring BIPAP. Currently awake, alert, in NAD, comfortable Off BIPAP, sat 99% on 2LNC, ABG with marked improvement. ABG demonstrates chronic resp acidosis and metabolic alkalosis. Cont with monitor resp status, place BIPAP as needed, and at night. Cont with Solumedrol, Duonebs PRN, and Rocephin and Doxycycline. GI ppx, DVT ppx. Monitor in MICU Critical care time 40 minutes.
[2017-06-09 14:22] LABS: FOLATE > 20.0 ng/mL
--- NOTE | 2017-06-09 14:47 | PN ---
DATE: 06/09/2017 LOCATION: The patient is seen in ICU bed 5. SUBJECTIVE: The patient's son is at bedside. The patient is still on BiPAP. The patient is awake, responsive. Overnight nurse's notes were reviewed. The patient had an episode of hypotension with the paroxysmal atrial fibrillation which was noted by the house physician. The patient over last 24 hours found to have an episode of lethargy. OBJECTIVE: VITAL SIGNS: T-max 99.3. Heart rate 90s to 120 to 130s. Blood pressure 86/50, 94/53,100/63, 86/48. Respirations 17-21. O2 sat 98-99 to 100% nasal cannula on BiPAP. HEENT: Head examination, normocephalic, atraumatic. HEENT examination shows pale conjunctivae. Anicteric sclerae. Positive BiPAP noted. There are no jugular venous distention. CHEST: Kyphosis. LUNGS: Shows decreased breath sounds. Positive rhonchi, positive wheezing predominantly upper lung field. CARDIOVASCULAR: S1, S2, regular rate, tachycardiac rhythm. Positive systolic murmur. ABDOMEN: Soft. Positive bowel sounds. GENITALIA: Female. RECTAL: Deferred. EXTREMITIES: Shows trace swelling of the lower extremity. No pitting edema. MUSCULOSKELETAL: Shows a body mass index of 23. NEUROLOGIC: Neurologically, the patient is alert, awake, responsive, able to move upper and lower extremity without assistance. Gait examination is not tested. DIAGNOSTICS: WBC 4.3, hemoglobin/hematocrit is 8.5/34, platelets 291. Granulocytes; 91% segs and band is 4. D-dimer less than 200. ABG, two of them done today. Initial ABG shows a pH of 7.29, pCO2 of 98, pO2 of 75, bicarb 47, saturation of 98% on 30% FiO2. Repeat ABG shows pH of 7.31, pCO2 of 94, pO2 of 83, bicarb 47, saturation 99% on 30% FiO2. Sodium 139, potassium 4.0, chloride 85, CO2 of 44, anion gap 14, BUN 17, creatinine 0.8, GFR greater than 60, glucose 135, calcium 9.4, phosphorus 4.8, magnesium 2.0, iron 11, iron saturation 3, TIBC 391. Troponin all three sets are negative. BNP is 3740, down from 4020. Cholesterol 207, HDL 130. The patient's EKG from today was reviewed. The patient had two EKGs done, which are reviewed, which shows sinus tachycardia, ST-T changes. Other EKG from this morning shows sinus rhythm, left atrial enlargement, ST changes in lead I, aVL, V4-V6 left ventricular hypertrophy pattern. The patient seen by Pulmonary and house physician. IMPRESSION: 1. Acute hypercarbic hypoxic respiratory failure, BiPAP dependent. 2. Hypercarbia. 3. Hypoxemia. 4. Systemic inflammatory response syndrome. 5. Tachycardia. 6. Questionable paroxysmal atrial fibrillation. 7. Hypotension. 8. Hypoxemia. 9. Neutropenia, anemia, granulocytosis and bandemia. 10. Respiratory acidosis with hypercarbia, CO2 narcosis and hypoxemia. 11. Acute hypercarbic hypoxic respiratory failure. 12. Hypochloremic metabolic alkalosis. 13. Hyperglycemia. 14. Iron-deficiency anemia. 15. Elevated BNP of greater than 4370. 16. Right-sided diastolic congestive heart failure with elevated right ventricular systolic pressure of 50 mmHg with concentric left ventricular hypertrophy and moderate pulmonary hypertension and tricuspid regurgitation. 17. Moderately dilated left atrium. 18. Moderate mitral regurgitation. 19. Thickened mitral valve, tricuspid valve and aortic valve. 20. Moderate pulmonary hypertension. 21. History of hypothyroidism. 22. O positive blood type. 23. Left ventricular hypertrophy with ST-T changes in anterolateral leads. 24. Sinus tachycardia. 25. Questionable paroxysmal atrial fibrillation noted on telemetry monitoring. 26. Normocytic iron-deficiency anemia. 27. Acute exacerbation of advanced chronic obstructive pulmonary disease. 28. Hypercarbia with CO2 narcosis. 29. Iron-deficiency anemia. 30. History of poor compliance. 31. History of dyslipidemia, hypothyroidism. 32. History of constipation. 33. History of hypercapnic hypercarbic ventilator-dependent respiratory failure with history of respiratory acidosis and hypercarbia, history of severe exacerbation of chronic obstructive pulmonary disease, history of CO2 narcosis, history of coronary ischemic changes with normal stress test. 34. Diastolic congestive heart failure. 1. Acute hypercarbic hypoxic respiratory failure requiring bilevel positive airway pressure. 2. Carbon dioxide narcosis. 3. Severe hypercarbia. 4. Severe respiratory acidosis with hypercarbia and carbon dioxide narcosis. 5. Severe hypoxemia. 6. Acute exacerbation of chronic obstructive pulmonary disease with hypercarbic hypoxic respiratory failure with carbon dioxide narcosis, hypoxemia, hypercarbia and respiratory acidosis. 7. Microcytic anemia, etiology unclear, but the patient has decreased hemoglobin since the previous visit. 8. Sinus tachycardia. 9. Hypochloremia metabolic alkalosis. 10. Hyperglycemia. 11. Right-sided diastolic congestive heart failure with elevated BNP of 4020. 12. History of hypothyroidism with normal thyroid profile at present. 13. Hypochloremic metabolic alkalosis. 14. Questionable cardiomegaly on chest x-ray. 15. Sinus tachycardia. 16. Hypertensive cardiovascular disease with T-wave changes in lead I, aVL, V4-V6 and left ventricular hypertrophy pattern. 17. Anemia with decreasing hemoglobin. 18. Hypercarbia with carbon dioxide narcosis. 19. Acute exacerbation of chronic obstructive pulmonary disease. 20. Moderate pulmonary hypertension with elevated right ventricular systolic pressure and tricuspid regurgitation. PLAN: At this time, patient's treatment will be optimized and stabilized in the ICU. The patient will be ordered. Patient's hemoglobin A1c is pending. The patient's uric acid was within normal limit. The patient has been ordered serial labs, serial BNP. The patient's erythropoietin, hemoglobin, electrophoresis, sickle cell screen pending. CBC pending. Current consultation awaiting GI evaluation, Cardiology, Pulmonary evaluation noted. Current medications: Mucomyst nebulizer with Xopenex nebulizer every 6 hours, doxycycline 100 mg IV q.12, Venofer 200 mg IV daily x3. The patient received digoxin this morning 0.25 mg x2 doses for paroxysmal atrial fibrillation, Lovenox 40 mg subcu daily. The patient is started on MiraLax 17 g twice a day, Protonix 40 mg twice a day, Pulmicort nebulizer 0.5 mg twice a day, Rocephin 1 g IV daily, Solu-Medrol 40 mg IV q.[address] Aguila, Tessalon Perles 200 three times a day for cough. The patient is on BiPAP with the settings of 16/7, 30% FiO2, rate of 12. The patient is started on heart healthy diet. Serial EKGs ordered. Head of the bed at 30 degrees. SCDs ordered. ADRIANNA stockings thigh-high ordered. Patient has been ordered SCDs. Transfusion of PRBC ordered. Stool occult blood ordered x3. At present, the patient's condition, diagnosis, overall guarded to poor prognosis explained to the patient and the patient's son, who was present at the bedside. I have explained to the patient and the patient's son about the patient's overall guarded to poor prognosis because of underlying comorbidity and advanced medical condition and decompensated pulmonary status. All the questions concerned answered, they acknowledged and understand. Time spent in the entire management more than 35 minutes. Dictated and electronically signed, not read. Signing off, Garett Rodríguez MD MTDD
--- NOTE | 2017-06-09 17:27 | CON ---
GASTROENTEROLOGY CONSULTATION DATE OF CONSULTATION: 06/09/2017 REQUESTING PHYSICIAN: Dr. Rodríguez. REASON FOR CONSULTATION/HISTORY OF PRESENT ILLNESS: I have been asked to see this 72-year-old female who was admitted to the hospital with shortness of breath without any improvement with using her nebulizer at home. The patient does have a history of severe COPD, asthma, pulmonary hypertension, and congestive heart failure. The patient also has a history of chronic anemia. Her baseline hemoglobin dating back to over a year ago is between 9 and 9.5 g. The patient states that she had an endoscopy and colonoscopy [address] Marcus Zayas at [facility] which did not reveal any source of bleeding. Chest x-ray performed in the emergency room was negative for any infiltrates. PAST MEDICAL HISTORY: Notable for COPD, asthma, congestive heart failure, pulmonary hypertension, chronic anemia. PAST SURGICAL HISTORY: Notable for hysterectomy. SOCIAL HISTORY: The patient denies cigarette smoking or alcohol use. FAMILY HISTORY: Noncontributory. REVIEW OF SYSTEMS: Fourteen-point review of systems is notable for shortness of breath. PHYSICAL EXAMINATION: GENERAL: Elderly female, lying in bed, with a BiPAP machine on. VITAL SIGNS: Reveal she is afebrile, blood pressure 86/55, heart rate 91. HEENT: Reveals sclerae to be white, conjunctivae pale. NECK: Supple. CHEST: Reveals scattered rhonchi with dry crackles. HEART: Exam reveals an irregular rate. ABDOMEN: Soft, nontender. EXTREMITIES: Show no edema. LABORATORY DATA: Reveals white blood cell count 4.3, hemoglobin 8.5, platelet count 291,000. Coagulations reveal PT 12.6, INR 1.15. Chemistries reveal chloride 85, bicarb of 44, BUN 17, creatinine 0.8, serum iron 11, TIBC 391, percent saturation of 3, AST. AST, ALT, alkaline phosphatase were all normal. IMPRESSION: A 72-year-old female, admitted to the hospital with increasing shortness of breath with known pulmonary hypertension with hypercarbia and anemia. The anemia is most likely that of chronic disease. She did have an endoscopy and colonoscopy by Dr. Zayas several months ago and was told that there was no source of blood loss identified. RECOMMENDATIONS: 1. Follow serial hematocrits. 2. Transfuse packed red blood cells as needed. 3. Note the patient did have an episode of atrial fibrillation. If need be, she may be anticoagulated with close monitoring of PT/INR. 4. Consider Hematology evaluation. Artis Luna MD
[2017-06-10] MEDS: Acetylcysteine 20% Inhal Soln (4ml) IH SCH ×4 (02:05→19:49)
[2017-06-10] MEDS: Levalbuterol 0.63 MG/3 ML Inhal Soln UD IH SCH ×4 (02:05→19:50)
[2017-06-10 04:44] LABS: HEMATOCRIT 31.2 % (35.0-45.0); HEMOGLOBIN 8.7 g/dL (11.7-15.5); RDW 18.5 % (11.0-15.0)
[2017-06-10 05:30] LABS: ARTERIAL BLOOD GAS O2 CAPACITY 10.8 mL/dl (16-24); ARTERIAL BLOOD GAS O2 CONTENT 10.8 ML/dl (15-23); ARTERIAL BLOOD GAS PH 7.36 (7.35-7.45); ARTERIAL BLOOD HGB O2 SAT 96.5 % (95.0-98.0); CARBOXYHEMOGLOBIN 2.6 % (0.5-1.5); HHB 0.1 % (0-5); METHEMOGLOBIN 0.8 % (0.0-3.0)
[2017-06-10] MEDS: Pantoprazole 40 mg EC Tab PO SCH ×2 (05:57→16:31)
[2017-06-10 06:08] LABS: ARTERIAL BLOOD GAS HCO3 50.3 mmol/L (21-28)
[2017-06-10] MEDS: Budesonide 0.5 mg/2 ml Inhal Susp UD IH SCH ×2 (07:10→19:50)
[2017-06-10 07:21] LABS: GRAN # 1.84 (1.4-6.5); GRAN % 77.7 % (50.0-68.0); HEMATOCRIT 30.1 % (36.0-48.0); LYMPH # 0.4 (1.2-3.4); LYMPH % 18.1 % (22.0-35.0); MEAN CELL VOLUME 80.9 fl (80.0-105.0); MEAN CORPUSCULAR HEMOGLOBIN 20.4 pg (25.0-35.0); MEAN CORPUSCULAR HGB CONC 25.2 g/dl (31.0-37.0); MEAN PLATELET VOLUME 10.8 fl (7.0-11.0); MONO # 0.1 (0.1-0.6); MONO % 4.2 % (1.0-6.0); RED CELL DISTRIBUTION WIDTH 17.8 % (11.5-14.5)
[2017-06-10 07:33] LABS: WHITE BLOOD COUNT 2.4 10^3/ul (4.5-11.0)
--- NOTE | 2017-06-10 07:49 | PN ---
DATE: 06/10/17(620am--710am) SUBJECTIVE: The patient appears much more comfortable this morning. She is not short of breath at rest. PHYSICAL EXAMINATION: VITAL SIGNS: Temperature is 98.1, pulse 75, respirations 17, blood pressure 108/68. Oxygen saturation on BiPAP is 100%. HEENT: Normocephalic, atraumatic. NECK: No JVD. CARDIOVASCULAR: Positive S1, S2. No S3 gallop. LUNGS: Decreased breath sounds at the bases. Less rhonchi. Less wheezing. EXTREMITIES: Mild edema. No cyanosis, no clubbing. Calves are nontender to palpation. GASTROINTESTINAL: Abdomen is soft, nontender, nondistended. Bowel sounds are positive. SKIN: No acute rash. NEUROLOGIC: Limited at the present time. PERTINENT LABORATORY DATA: Arterial blood gas was done on BiPAP/30% oxygen this morning. Results are: PH of 7.36, pCO2 of 89, pO2 of 114. CBC: White count 4.3, hemoglobin 8.5, hematocrit 33.8, and platelets of 291. IMPRESSION: 1. Respiratory failure. 2. Advanced chronic obstructive pulmonary disease. 3. Asthma. 4. Acute bronchitis. 5. Cardiac arrhythmias. 6. Anemia. PLAN: The patient appears much more comfortable this morning. She is not short of breath at rest. She does state to feeling much better overall. I did discuss the case with the night nurse at length. The night nurse stated that the patient had a very good night. The patient has also been changed to nasal cannula during the day, and BiPAP at night. The arterial blood gas(noted above) continues to improve. On physical exam, there is certainly less bronchospasm noted-compared to the initial presentation. I will continue the current nebulizer treatments and intravenous steroids (decreased yesterday) for now. The patient also remains on antibiotic therapy. There are no temperatures noted. There is no leukocytosis. GI evaluation by Dr. Luna is noted. Clinical status of the patient is significantly improved-compared to the initial presentation. I will discuss the above with the entire ICU team in the next few moments. I will also discuss the above with the attending physician later this morning. Edin Aguila MD MTDD
[2017-06-10 08:46] LABS: TROPONIN I 0.04 ng/mL
[2017-06-10 08:48] LABS: ALB/GLOB RATIO 1.3 (1.1-1.8); ALKALINE PHOSPHATASE 52 U/L (38-126); ALT/SGPT 29 U/L (7-56); AST/SGOT 26 U/L (14-36); BILIRUBIN,DIRECT 0.4 mg/dL (0.0-0.4); BILIRUBIN,TOTAL 0.4 mg/dL (0.2-1.3); BLOOD UREA NITROGEN 35 mg/dL (7-21); CALCIUM 9.5 mg/dL (8.4-10.5); CHLORIDE 93 mmol/L (98-107); GFR AFRICAN-AMERICAN > 60; GLUCOSE,RANDOM 114 mg/dL (70-110); MAGNESIUM 2.3 mg/dL (1.7-2.2); POTASSIUM 4.4 mmol/L (3.6-5.0); SODIUM 139 mmol/L (132-148); TOTAL PROTEIN 6.9 g/dL (5.8-8.3)
[2017-06-10 09:22] LABS: CARBON DIOXIDE 44 mmol/L (21-33)
--- NOTE | 2017-06-10 09:42 | CP.PCM.PN ---
<Alberta Harris - Last Filed: 06/10/17 11:32> Subjective - Date & Time of Evaluation Date of Evaluation: 06/10/17 Time of Evaluation: 09:25 - Subjective Subjective: Medicine note for Dr. Rodríguez Patient seen and examined at bedside. Patient resting comfortably in bed with no new complaints at this time. Patient is eating her breakfast and says she is tolerating her diet without issues. Patient says she is breathing much better today and she does not feel short of breath. She denies chest pain, dizziness, palpitations, blurry vision, headaches, abdominal pain, N&V, diarrhea, constipation, LE pain, and LE swelling. Objective - Vital Signs/Intake and Output Vital Signs (last 24 hours): Temp Pulse Resp BP Pulse Ox 978.3 F H 94 H 24 113/78 100 06/10/17 08:00 06/10/17 09:10 06/10/17 09:10 06/10/17 07:23 06/10/17 08:20 Intake and Output: 06/10/17 06/10/17 06:59 18:59 Intake Total 1200 Output Total 200 Balance 1000 - Medications Medications: Current Medications Acetylcysteine (Acetylcysteine 20%) 4 ml IH [id number] [facility] Last Admin: 06/10/17 07:10 Dose: 4 ml Benzonatate (Tessalon Perles) 200 mg PO TID [facility] Last Admin: 06/09/17 17:20 Dose: 200 mg Budesonide (Pulmicort Respules) 0.5 mg IH [id number] [facility] Last Admin: 06/10/17 07:10 Dose: 0.5 mg Enoxaparin Sodium (Lovenox) 40 mg SC DAILY [facility] PRN Reason: Protocol Last Admin: 06/09/17 10:17 Dose: 40 mg Doxycycline Hyclate 100 mg/ (Sodium Chloride) 100 mls @ 100 mls/hr IVPB Q12 [facility] PRN Reason: Protocol Last Admin: 06/09/17 22:17 Dose: 100 mls/hr Ceftriaxone Sodium (Rocephin 1 Gram Ivpb) 1 gm in 100 mls @ 100 mls/hr IVPB DAILY [facility] PRN Reason: Protocol Last Admin: 06/09/17 10:18 Dose: 100 mls/hr Iron Sucrose 200 mg/ Sodium (Chloride) 110 mls @ 110 mls/hr IVPB DAILY [facility] Stop: 06/11/17 10:59 Last Admin: 06/09/17 13:14 Dose: 110 mls/hr Levalbuterol HCl (Xopenex) 0.63 mg IH [id number] [facility] Last Admin: 06/10/17 07:10 Dose: 0.63 mg Methylprednisolone (Solu-Medrol) 40 mg IVP Q8H [facility] Last Admin: 06/09/17 22:15 Dose: 40 mg Pantoprazole Sodium (Protonix Ec Tab) 40 mg PO 0600,1600 [facility] Last Admin: 06/10/17 05:57 Dose: 40 mg Polyethylene Glycol (Miralax) 17 gm PO BID [facility] Last Admin: 06/09/17 17:20 Dose: 17 gm - Labs Labs: 06/10/17 06:30 06/10/17 06:30 PT 12.6 SECONDS (9.4-12.5) H 06/08/17 02:30 INR 1.15 (0.93-1.08) H 06/08/17 02:30 APTT 31.3 Seconds (25.1-36.5) 06/08/17 02:30 - Additional Findings Additional findings: - Constitutional Appears: Non-toxic, No Acute Distress - Head Exam Head Exam: ATRAUMATIC, NORMOCEPHALIC - Eye Exam Eye Exam: EOMI, Normal appearance - ENT Exam ENT Exam: Mucous Membranes Moist, Normal Oropharynx - Respiratory Exam Respiratory Exam: Wheezes. absent: Rales, Rhonchi - Cardiovascular Exam Cardiovascular Exam: RRR, +S1, +S2, Murmur (3/6 HEMALATHA). absent: Bradycardia, Diastolic murmur, Gallop - GI/Abdominal Exam GI & Abdominal Exam: Soft, Tenderness, Normal Bowel Sounds - Extremities Exam Extremities Exam: Normal Inspection. absent: Calf Tenderness, Pedal Edema - Neurological Exam Neurological Exam: Alert, Awake - Psychiatric Exam Psychiatric exam: Normal Affect, Normal Mood - Skin Skin Exam: Dry, Intact, Warm Assessment and Plan (1) Acute on chronic respiratory failure with hypercapnia Status: Acute (2) Diastolic heart failure Status: Acute (3) Anemia Status: Acute - Assessment and Plan (Free Text) Plan: (1) Acute on chronic respiratory failure with hypercapnia Assessment & Plan: * History of COPD, asthma, and diastolic heart failure with pulmonary HTN * improving * ABG on arrival: * pH: 7.24 * pCO2: 112 * HCO3: 48 * pO2: 73 * ABG today: * pH: 7.36 * pCO2: 89 * HCO3: (50.3) * pO2: 114 * D dimer: <200 * f/u MRSA screen * Duonebs * Solumedrol 40 mg IV Q8 * Xopenex 0.63 mg Q6 * Pulmicort 0.5 mg Q12 * Acetylcysteine 20% 4 ml Q6 * Doxy 100 mg Q12 * Ceftriaxone 1g IV QD * O2 by nasal cannula Status: Acute (2) Diastolic heart failure Assessment & Plan: * Cardiology consulted (Dr. Parry) * Echo (01/03/17): EF 66%, LVH with normal LV function, moderately dilated LA, Mod pulm HTN (RVSP 49), mild-mod MR, mild TR * BNP: 3740 * Trops negative * CK 67 * CXR: no active disease Status: Acute (3) Anemia Assessment & Plan: * H&H: 8.5/33.8 * GI consulted (Dr. Luna) recs appreciated * Iron: 11 (low) * TIBC: 391 * %Sat: 3 (low) * Ferritin: 5.6 * B12 >1000 * Folate: >20 * Iron sucrose 200 mg IV QD x3 days * f/u hemoglobinopathy studies * f/u erythhropoietin * f/u sickle cell screen * f/u FOBT Status: Acute <Garett Rodríguez U - Last Filed: 06/15/17 16:34> Objective - Vital Signs/Intake and Output Vital Signs (last 24 hours): Temp Pulse Resp BP Pulse Ox 98 F 69 20 132/81 99 06/13/17 05:56 06/13/17 05:56 06/13/17 05:56 06/13/17 05:56 06/13/17 05:56 - Labs Labs: 06/13/17 06:30 06/13/17 06:30 PT 12.6 SECONDS (9.4-12.5) H 06/08/17 02:30 INR 1.15 (0.93-1.08) H 06/08/17 02:30 APTT 31.3 Seconds (25.1-36.5) 06/08/17 02:30 Attending/Attestation - Attestation I have personally seen and examined this patient.: Yes I have fully participated in the care of the patient.: Yes I have reviewed all pertinent clinical information, including history, physical exam and plan: Yes Notes (Text): Please read/see my dictated notes.
--- NOTE | 2017-06-10 09:43 | CARD ---
APPROVED REPORT EKG Measurement Heart [id number] CT 160P66 [id number] <Conclusion> Normal sinus rhythm Possible Left atrial enlargement Left ventricular hypertrophy with repolarization abnormality No change except the rate is slower
--- NOTE | 2017-06-10 10:08 | CP.PCM.PN ---
<Leo Lynch - Last Filed: 06/10/17 10:05> Subjective - Date & Time of Evaluation Date of Evaluation: 06/10/17 Time of Evaluation: 10:05 - Subjective Subjective: Critical care progress note - Fletcher Lnych PGY2 Patient seen and examined at bedside this morning. No acute overnight events or new events reported. Patient tolerated BiPAP overnight well. Currently saturating well on 2L NC, sitting up in bed enjoying breakfast. Denies chest pain, palpitations, SOB. ABG this morning reviewed. Objective - Vital Signs/Intake and Output Vital Signs (last 24 hours): Temp Pulse Resp BP Pulse Ox 978.3 F H 94 H 24 113/78 100 06/10/17 08:00 06/10/17 09:10 06/10/17 09:10 06/10/17 07:23 06/10/17 08:20 Intake and Output: 06/10/17 06/10/17 06:59 18:59 Intake Total 1200 Output Total 200 Balance 1000 - Medications Medications: Current Medications Acetylcysteine (Acetylcysteine 20%) 4 ml IH [id number] [facility] Last Admin: 06/10/17 07:10 Dose: 4 ml Benzonatate (Tessalon Perles) 200 mg PO TID [facility] Last Admin: 06/09/17 17:20 Dose: 200 mg Budesonide (Pulmicort Respules) 0.5 mg IH [id number] [facility] Last Admin: 06/10/17 07:10 Dose: 0.5 mg Enoxaparin Sodium (Lovenox) 40 mg SC DAILY [facility] PRN Reason: Protocol Last Admin: 06/09/17 10:17 Dose: 40 mg Doxycycline Hyclate 100 mg/ (Sodium Chloride) 100 mls @ 100 mls/hr IVPB Q12 [facility] PRN Reason: Protocol Last Admin: 06/09/17 22:17 Dose: 100 mls/hr Ceftriaxone Sodium (Rocephin 1 Gram Ivpb) 1 gm in 100 mls @ 100 mls/hr IVPB DAILY [facility] PRN Reason: Protocol Last Admin: 06/09/17 10:18 Dose: 100 mls/hr Iron Sucrose 200 mg/ Sodium (Chloride) 110 mls @ 110 mls/hr IVPB DAILY [facility] Stop: 06/11/17 10:59 Last Admin: 06/09/17 13:14 Dose: 110 mls/hr Levalbuterol HCl (Xopenex) 0.63 mg IH [id number] [facility] Last Admin: 06/10/17 07:10 Dose: 0.63 mg Methylprednisolone (Solu-Medrol) 40 mg IVP Q12 [facility] Pantoprazole Sodium (Protonix Ec Tab) 40 mg PO 0600,1600 [facility] Last Admin: 06/10/17 05:57 Dose: 40 mg Polyethylene Glycol (Miralax) 17 gm PO BID [facility] Last Admin: 06/09/17 17:20 Dose: 17 gm - Labs Labs: 06/10/17 06:30 06/10/17 06:30 PT 12.6 SECONDS (9.4-12.5) H 06/08/17 02:30 INR 1.15 (0.93-1.08) H 06/08/17 02:30 APTT 31.3 Seconds (25.1-36.5) 06/08/17 02:30 - Constitutional Appears: Non-toxic, No Acute Distress - Head Exam Head Exam: ATRAUMATIC, NORMAL INSPECTION, NORMOCEPHALIC - Eye Exam Eye Exam: EOMI, PERRL - ENT Exam ENT Exam: Mucous Membranes Moist - Neck Exam Neck Exam: Normal Inspection. absent: Lymphadenopathy, Tenderness, Thyromegaly - Respiratory Exam Respiratory Exam: Wheezes (mild expiratory wheezing bilaterally). absent: Rales , Rhonchi - Cardiovascular Exam Cardiovascular Exam: RRR, +S1, +S2, Murmur (systolic). absent: Gallop, Rubs - GI/Abdominal Exam GI & Abdominal Exam: Soft, Normal Bowel Sounds. absent: Distended, Firm, Guarding, Rigid, Tenderness, Rebound - Neurological Exam Neurological Exam: Alert, Awake, CN II-XII Intact, Oriented x3 - Psychiatric Exam Psychiatric exam: Normal Affect, Normal Mood - Skin Skin Exam: Dry, Intact, Normal Color, Warm Assessment and Plan - Assessment and Plan (Free Text) Plan: 72 year old female with a PMH of asthma, COPD, pulmonary hypertension, and diastolic CHF who presents with complaints of shortness of breath for the past 2 -3 days Neuro: -awake, alert, oriented x3; responding to questions appropriately -AMS on admission likely secondary to CO2 narcosis, presently resolved Cardio: -Echo from 01/03/17 revealed EF of 66%, LVH with good LV function, moderately dilated LA, mild-mod MR, mild TR, and moderate pulmonary HTN RVSP 49 -Troponins negative x3 -Hemodynamically stable, will maintain MAP > 65 -Cardiology consulted - Dr. Parry Pulm: -Patient presented with acute on chronic hypercapnic respiratory failure -Continue with xopenex and pulmicort -Solumedrol tapered from 40mg q8h to 40mg q12h -Continue with rocephin and doxycyline -Tolerating BiPAP well at night -HOB> 30' GI: -Protonix for GI prophylaxis -Heart healthy diet Heme: -No overt signs of bleeding -Drop in hemoglobin this morning however PMD has ordered 2u PRBC to be transfused -DVT prophylaxis with lovenox Nephro: -BUN/Cr within normal limits -Monitor and replete electrolytes as indicated ID: -afebrile, no leukocytosis -Continue with rocephin and doxycyline Patient seen and case discussed/reviewed with attending, Dr. Modi <Sheldon Modi - Last Filed: 06/10/17 11:00> Objective - Vital Signs/Intake and Output Vital Signs (last 24 hours): Temp Pulse Resp BP Pulse Ox 978.3 F H 94 H 24 113/78 100 06/10/17 08:00 06/10/17 09:10 06/10/17 09:10 06/10/17 07:23 06/10/17 08:20 Intake and Output: 06/10/17 06/10/17 06:59 18:59 Intake Total 1200 Output Total 200 Balance 1000 - Medications Medications: Current Medications Acetylcysteine (Acetylcysteine 20%) 4 ml IH [id number] [facility] Last Admin: 06/10/17 07:10 Dose: 4 ml Benzonatate (Tessalon Perles) 200 mg PO TID [facility] Last Admin: 06/10/17 10:23 Dose: 200 mg Budesonide (Pulmicort Respules) 0.5 mg IH [id number] [facility] Last Admin: 06/10/17 07:10 Dose: 0.5 mg Enoxaparin Sodium (Lovenox) 40 mg SC DAILY [facility] PRN Reason: Protocol Last Admin: 06/10/17 10:23 Dose: 40 mg Doxycycline Hyclate 100 mg/ (Sodium Chloride) 100 mls @ 100 mls/hr IVPB Q12 [facility] PRN Reason: Protocol Last Admin: 06/10/17 10:23 Dose: 100 mls/hr Ceftriaxone Sodium (Rocephin 1 Gram Ivpb) 1 gm in 100 mls @ 100 mls/hr IVPB DAILY [facility] PRN Reason: Protocol Last Admin: 06/10/17 10:23 Dose: 100 mls/hr Iron Sucrose 200 mg/ Sodium (Chloride) 110 mls @ 110 mls/hr IVPB DAILY [facility] Stop: 06/11/17 10:59 Last Admin: 06/10/17 10:21 Dose: 110 mls/hr Levalbuterol HCl (Xopenex) 0.63 mg IH [id number] [facility] Last Admin: 06/10/17 07:10 Dose: 0.63 mg Methylprednisolone (Solu-Medrol) 40 mg IVP Q12 [facility] Pantoprazole Sodium (Protonix Ec Tab) 40 mg PO 0600,1600 [facility] Last Admin: 06/10/17 05:57 Dose: 40 mg Polyethylene Glycol (Miralax) 17 gm PO BID [facility] Last Admin: 06/10/17 10:24 Dose: 17 gm - Labs Labs: 06/10/17 06:30 06/10/17 06:30 PT 12.6 SECONDS (9.4-12.5) H 06/08/17 02:30 INR 1.15 (0.93-1.08) H 06/08/17 02:30 APTT 31.3 Seconds (25.1-36.5) 06/08/17 02:30 Assessment and Plan - Assessment and Plan (Free Text) Plan: Patient seen and examined, on rounds with resident, agree with note with following additions/exceptions: Patient is 72yo female with PMhx of Asthma/COPD, a/w hypercapnic resp failure, requiring BIPAP. Currently awake, alert, in NAD, comfortable Off BIPAP, sat 99% on 2LNC, ABG with marked improvement. ABG demonstrates chronic resp acidosis and metabolic alkalosis. Tolerated BIPAP last night, no issues. Pulmonary following. Todays labs with drop in HH, monitor HH, transfuse 1u pRBC, follow up GI. HD stable, HR 80s, no evidence of melena, abd pain. Cont with monitor resp status, place BIPAP as needed, and at night. Taper Solumedrol, Duonebs PRN, and Rocephin and Doxycycline. GI ppx, DVT ppx. Transfer to telemetry.
[2017-06-10] MEDS: cefTRIAXone 1 gm 1 GM/100 ML BAG IVPB SCH (10:23)
[2017-06-10] MEDS: Enoxaparin 40 mg Syringe SC SCH (10:23)
[2017-06-10] MEDS: POLYETHYLENE GLYCOL 3350 17 GM/Dose PACKET PO SCH ×2 (10:24→17:52)
--- NOTE | 2017-06-10 10:35 | CARD ---
APPROVED REPORT EKG Measurement Heart [id number] [place] 150P66 [id number] <Conclusion> Normal sinus rhythm Left ventricular hypertrophy with repolarization abnormality No change
--- NOTE | 2017-06-10 11:27 | HP ---
HISTORY OF PRESENT ILLNESS: The patient is a 72-year-old for female who came to the [facility] Emergency Room complaining of 2 to 3 days history of shortness of breath and coughing despite using nebulizer at home without any relief. The patient states that for the last 2 to 3 days, her shortness of breath, coughing and the congestion has increased. The patient denies any chest pain. According to the patient's triage notes, the patient came in as an ambulatory walk-in. REVIEW OF SYSTEMS: The patient's 13-system review was done, pertinent positive and negative dictated above. CODE STATUS: Full code. LIVING WILL AND ADVANCED DIRECTIVE: None. HEIGHT: 5 feet 1 inch. ALLERGIES: PEANUTS. BODY MASS INDEX: 27. HOME MEDICATIONS: Simvastatin 10 mg daily next Protonix 40 mg daily, Synthroid 50 mcg daily, hydrochlorothiazide 12.5 mg daily, aspirin 325 mg daily, DuoNeb nebulizer every 6 hours, and Tylenol 650 q. 6 hours. p.r.n. SOCIAL HISTORY: The patient denies smoking. Denies alcohol. Denies drug use. Denies communicable or transmissible disease. MENSTRUAL HISTORY: Postmenopausal. PAST MEDICAL AND SURGICAL HISTORY: History of ventilator dependent hypercarbic hypoxic respiratory failure, history of exacerbation of chronic obstructive pulmonary disease, history of hypercarbic respiratory failure, history of chronic obstructive pulmonary disease, history of noncompliance, history of dyslipidemia, history of hypertension, and history of hypothyroidism. The patient's past medical history is significant for history of normocytic anemia, history of diastolic right-sided congestive heart failure, history of pulmonary hypertension, history of left ventricular ejection fraction of 66%, history of tricuspid regurgitation, history of moderate mitral regurgitation, history of pulmonary arterial hypertension with elevated right ventricular systolic pressure, history of hypovitaminosis D, history of proteinuria, and history of microscopic hematuria. The patient's past medical history is significant for normal stress test done in 12/2016 with ejection fraction of 70%. The patient's past medical history is also significant for osteoporosis, osteopenia, history of poor compliance, history of thyromegaly with the right thyroid nodule, history of cervical spine degenerative disc disease, history of left lower lobe pulmonary consolidation, history of multi nodular thyroid goiter, history of pulmonary arterial hypertension, history of left ventricular ejection fraction of 66% and echocardiogram, history of pulmonary arterial hypertension with right ventricular systolic pressure of 50 mmHg, history of her left hypertensive cardiovascular disease, history of dilated left atrium, history of thickened aortic valve, mitral valve and tricuspid valve, history of moderate mitral regurgitation, and history of moderate pulmonary arterial hypertension with tricuspid regurgitation. Past medical history is significant for history of hypercapnic ventilator-dependent respiratory failure, history of respiratory acidosis, hypercarbia, history of deconditioning, history of CO2 narcosis, history of hypertension, history of leukopenia, history of coronary ischemic changes with T-wave inversion in lead I and aVL, V4-V6. History of hypochloremic metabolic alkalosis with hypercarbia and CO2 narcosis, history of anemia, and leukopenia. History of diastolic congestive heart failure, history of hypertensive cardiovascular disease, history of osteoporosis, and dyslipidemia. Past medical history is also significant for poor compliance, history of diastolic right-sided congestive heart failure, and history of pulmonary hypertension. History of hysterectomy, history of sepsis, history of multilobar pneumonia and consolidation, history of moderately diffuse multinodular thyroid goiter and thyroiditis, history of anterolateral strain pattern on the EKG, history of sepsis with multilobar community-acquired pneumonia consolidation, history of bronchospasm, history of dyslipidemia, history of constipation, history of pneumonia, and history of cerebral contusion and frontal hematoma. SOCIAL HISTORY: She denies alcohol smoking or drug use. Denies communicable transmissible disease. OCCUPATIONAL HISTORY: Disabled. FAMILY HISTORY: Hypertension. PHYSICAL EXAMINATION: GENERAL: The patient was seen in the emergency room. VITAL SIGNS: The patient's vital signs 99.3 temperature, heart rate of 96 and 89. Telemetry shows sinus rhythm. Blood pressure was 124/72 and 130/80. The patient's O2 saturation was 74%, 91%, and 94%. HEENT: Head examination shows normocephalic and atraumatic. HEENT examination shows pinkish pale conjunctivae. Anicteric sclerae. NECK: Positive thyromegaly. No neck rigidity. Positive kyphosis. LUNGS: Decreased air entry and decreased breath sounds. Positive rhonchi, wheezing, crackles, and crepitus bilaterally. Coarse wheezing and coarse rhonchi. CARDIOVASCULAR: Examination shows S1 and S2, tachycardic rhythm. GASTROINTESTINAL: Abdomen is soft. Positive bowel sound. GENITALIA: Female. RECTAL: Examination is deferred. EXTREMITIES: Shows trace swelling of the lower extremity. No calf tenderness and no Homans' sign. NEUROLOGIC: The patient is alert, awake, responsive, appears to be short of breath and coughing. VASCULAR: Examination shows palpable pulses. MUSCULOSKELETAL: Examination shows a body mass index of 27. NEUROLOGIC: The patient is awake and responsive. Neurologic examination is limited. Gait examination could not be tested. PSYCHIATRIC: Examination is negative for anxiety. Negative for depression. Negative for suicidal or homicidal ideation. Negative for auditory or visual hallucination. DIAGNOSTIC AND LABORATORY DATA: Labs of 06/08/2017; WBC of 7.1, hemoglobin and hematocrit of 8 and 29.8, MCV of 78, and platelets of 313. PT and PTT of 12.6 and 31.3. ABG on room air pH of 7.24, pCO2 of 112 pO2 73, bicarbonate 48, and saturation 96.5%. Chest x-ray was done in the emergency room shows some increased markings. EKG done in the emergency room shows sinus tachycardia, T-wave inversion, I, aVL and V4-V6 with ST-T changes. The patient was seen in the Emergency Room by Dr. Cohen. The patient was evaluated in the Emergency Room. The patient's case was referred to the laundry tub maker for ICU evaluation. The patient was treated in the Emergency Room with Solu-Medrol, DuoNeb nebulizers, and Lasix 40 IV was given. The patient was evaluated by the laundry tub maker for ICU evaluation for respiratory failure. IMPRESSION AND PLAN: 1. Acute hypercarbic hypoxic respiratory failure requiring bilevel positive airway pressure. 2. Carbon dioxide narcosis. 3. Severe hypercarbia. 4. Severe respiratory acidosis with hypercarbia and carbon dioxide narcosis. 5. Severe hypoxemia. 6. Acute exacerbation of chronic obstructive pulmonary disease with hypercarbic hypoxic respiratory failure with carbon dioxide narcosis, hypoxemia, hypercarbia and respiratory acidosis. 7. Microcytic anemia, etiology unclear, but the patient has decreased hemoglobin since the previous visit. 8. Sinus tachycardia. 9. Hypochloremia metabolic alkalosis. 10. Hyperglycemia. 11. Right-sided diastolic congestive heart failure with elevated BNP of 4020. 12. History of hypothyroidism with normal thyroid profile at present. 13. Hypochloremic metabolic alkalosis. 14. Questionable cardiomegaly on chest x-ray. 15. Sinus tachycardia. 16. Hypertensive cardiovascular disease with T-wave changes in lead I, aVL, V4-V6 and left ventricular hypertrophy pattern. 17. Anemia with decreasing hemoglobin. 18. Hypercarbia with carbon dioxide narcosis. 19. Acute exacerbation of chronic obstructive pulmonary disease. 20. Moderate pulmonary hypertension with elevated right ventricular systolic pressure and tricuspid regurgitation. PLAN: At this time, the patient will be admitted to intensive care unit. Serial cardiac enzymes and serial labs ordered. The patient has been ordered, Pulmonary, Cardiology and Gastroenterology evaluation. The patient has been ordered type and screen. The patient is started on Mucomyst nebulizer with Xopenex nebulizer every 6 hours and bronchodilators has been ordered. The patient is started on doxycycline 100 mg IV q. 12 hours. The patient is started on GI prophylaxis with Protonix 40 mg daily, the patient was started on Rocephin 1 g IV daily, and the patient is also started on Solu-Medrol 40 mg IV q. 6 hours. The patient has been ordered repeat EKG. The patient is started on BiPAP 16/7 and FIO2 of 30. The patient has been ordered neuro checks. The patient has been ordered ADRIANNA stockings and SCDs. Stool occult blood ordered for evaluation of anemia and iron profile will be ordered. At present, the patient was seen and evaluated in the Emergency Room. The patient's entire diagnostic data was evaluated and the patient was examined. The patient's case was discussed with the ER physician. Time spent in the entire management more than 1 hour and 55 minutes. Dictated and electronically signed, not read. Signing off Garett Rodríguez MD. Garett Rodríguez MD
--- NOTE | 2017-06-10 11:30 | CARD ---
APPROVED REPORT EKG Measurement Heart [id number] 162P [id number] <Conclusion> A. Fib with RVR, new LVH STTW changes c/w ischemia and/or strain pattern
--- NOTE | 2017-06-10 13:35 | PN ---
DATE: 06/10/2017 SUBJECTIVE: The patient is seen in ICU, she is lying in bed comfortable. She denies any rectal bleeding. Her CBC this morning revealed a white blood cell count of 2.4, hemoglobin down to 7.6. The patient denies any melena or rectal bleeding. She denies any shortness of breath or chest pain. MEDICATIONS: Include acetylcysteine 20%, doxycycline 100 mg IV q.12, IV Venofer, Lovenox 40 mg subcu daily, MiraLax 17 g twice a day, Protonix 40 mg once a day, budesonide inhaler q.12 hours, ceftriaxone 1 g IV daily, Solu-Medrol 40 mg IV q.12, Tessalon Perles and Xopenex. PHYSICAL EXAMINATION: VITAL SIGNS: Reveal that she is afebrile. Blood pressure 113/78, heart rate 94. HEENT: Reveal sclerae to be white. Conjunctivae pale. NECK : Supple. CHEST: Reveal scattered rales. HEART: Reveals a regular rate and rhythm. ABDOMEN: Soft, nontender. No mass. EXTREMITIES: Show no edema. LABORATORY DATA: Reveal white blood cell count down to 2.4, hemoglobin 7.6, platelet count 271,000. Chemistries reveal BUN 35, creatinine 0.6, bicarb of 44. BNP of 1520. AST, ALT, alk phos were all normal. IMPRESSION: 1. Anemia and leukopenia rule out an underlying hematologic process. There is no evidence of overt GI bleeding. She did have an endoscopy and colonoscopy approximately 4 months ago at [facility] which was unrevealing. 2. Respiratory failure. 3. Paroxysmal atrial fibrillation. RECOMMENDATIONS: 1. The patient is to receive 2 units of packed red blood cells. 2. Suggest obtaining an hematology evaluation. 3. Follow serial hematocrits. 4. Check stool for occult blood. Artis Luna MD MTDBrandy
--- NOTE | 2017-06-10 21:12 | CP.PCM.CON ---
History of Present Illness - History of Present Illness History of Present Illness: 72 year old female with a history of diastolic CHF, asthma, COPD, admitted with shortness of breath, with anemia and leukopenia. The patient reports to several days of progressive shortness of breath. It first was noticeable with exertion but then occurred at rest. Her daughter notes she became more fatigued and lethargic which prompted her to bring her to the ER. She does note to being told she is anemic for several years. She was prescribed iron pills but has not seen much improvement. Her daughter notes an EGD/colonoscopy 3-4 months ago which she reports was normal. She is currently s/p 2U PRBC and notes to feeling better. Past medical history: diastolic CHF, asthma, COPD Past surgical history: Hysterectomy for fibroids Family history: Nephew with multiple myeloma, niece had breast cancer Social history: Former chewing tobacco, denies alcohol, and illicit drug use. Allergies: Peanut Review of systems: All remaining review of systems including HEENT, cardiovascular, respiratory, gastrointestinal, genitourinary, musculoskeletal, dermatologic, neurologic, and psychiatric are negative unless mentioned in the HPI. Past Patient History - Infectious Disease Hx of Infectious Diseases: None - Tetanus Immunizations Tetanus Immunization: Unknown - Past Social History Smoking Status: Never Smoked - CARDIAC Hx Hypertension: Yes - PULMONARY Hx Chronic Obstructive Pulmonary Disease (COPD): Yes - NEUROLOGICAL Hx Neurological Disorder: Yes (Concussion) - HEENT Hx HEENT Problems: No - RENAL Hx Chronic Kidney Disease: No - ENDOCRINE/METABOLIC Hx Hypothyroidism: Yes - HEMATOLOGICAL/ONCOLOGICAL Hx Blood Disorders: No - INTEGUMENTARY Hx Dermatological Problems: No - MUSCULOSKELETAL/RHEUMATOLOGICAL Hx Falls: Yes (past) - GASTROINTESTINAL Hx Gastrointestinal Disorders: No - GENITOURINARY/GYNECOLOGICAL Hx Reproductive Disorders: Yes (hyst) - PSYCHIATRIC Hx Psychophysiologic Disorder: No Hx Substance Use: No - SURGICAL HISTORY Hx Hysterectomy: Yes - ANESTHESIA Hx Anesthesia: Yes Hx Anesthesia Reactions: No Hx Malignant Hyperthermia: No Meds Allergies/Adverse Reactions: Allergies Allergy/AdvReac Type Severity Reaction Status Date / Time peanut Allergy ANAPHYLAXIS Verified 01/20/16 18:02 - Medications Medications: Current Medications Acetylcysteine (Acetylcysteine 20%) 4 ml IH [id number] [facility] Last Admin: 06/10/17 19:49 Dose: 4 ml Benzonatate (Tessalon Perles) 200 mg PO TID [facility] Last Admin: 06/10/17 17:52 Dose: 200 mg Budesonide (Pulmicort Respules) 0.5 mg IH [id number] [facility] Last Admin: 06/10/17 19:50 Dose: 0.5 mg Enoxaparin Sodium (Lovenox) 40 mg SC DAILY [facility] PRN Reason: Protocol Last Admin: 06/10/17 10:23 Dose: 40 mg Doxycycline Hyclate 100 mg/ (Sodium Chloride) 100 mls @ 100 mls/hr IVPB Q12 KRISTINE PRN Reason: Protocol Last Admin: 06/10/17 10:23 Dose: 100 mls/hr Ceftriaxone Sodium (Rocephin 1 Gram Ivpb) 1 gm in 100 mls @ 100 mls/hr IVPB DAILY [facility] PRN Reason: Protocol Last Admin: 06/10/17 10:23 Dose: 100 mls/hr Iron Sucrose 200 mg/ Sodium (Chloride) 110 mls @ 110 mls/hr IVPB DAILY [facility] Stop: 06/11/17 10:59 Last Admin: 06/10/17 10:21 Dose: 110 mls/hr Levalbuterol HCl (Xopenex) 0.63 mg IH [id number] [facility] Last Admin: 06/10/17 19:50 Dose: 0.63 mg Methylprednisolone (Solu-Medrol) 40 mg IVP Q12 [facility] Pantoprazole Sodium (Protonix Ec Tab) 40 mg PO 0600,1600 [facility] Last Admin: 06/10/17 16:31 Dose: 40 mg Polyethylene Glycol (Miralax) 17 gm PO BID [facility] Last Admin: 06/10/17 17:52 Dose: 17 gm Physical Exam - Head Exam Head Exam: ATRAUMATIC - Eye Exam Eye Exam: Normal appearance - ENT Exam ENT Exam: Mucous Membranes Dry - Respiratory Exam Respiratory Exam: NORMAL BREATHING PATTERN - Cardiovascular Exam Cardiovascular Exam: +S1, +S2 - GI/Abdominal Exam GI & Abdominal Exam: Normal Bowel Sounds - Extremities Exam Extremities exam: Positive for: normal inspection - Neurological Exam Neurological exam: Oriented x3 - Psychiatric Exam Psychiatric exam: Normal Affect, Normal Mood - Skin Skin Exam: Warm Results - Vital Signs Recent Vital Signs: Last Vital Signs Temp 98.6 F 06/10/17 16:00 Pulse 82 06/10/17 18:00 Resp 28 H 06/10/17 18:00 BP 139/98 H 06/10/17 17:25 Pulse Ox 98 06/10/17 18:00 - Labs Result Diagrams: 06/10/17 06:30 06/10/17 06:30 Labs: Laboratory Results - last 24 hr 06/08/17 06/09/17 06/09/17 23:20 05:00 06:30 WBC RBC Hgb Hct MCV MCH MCHC RDW Plt Count MPV Gran % Lymph % (Auto) Wharton % (Auto) Eos % (Auto) Baso % (Auto) Gran # Lymph # Wharton # Eos # Baso # Sickle Cell Screen Negative Hemoglobinopathy Red Blood Count 4.13 Hemoglobinopathy Hct 31.2 L Hemoglobinopathy Hgb 8.7 L Hemoglobinopathy MCV 75.7 L Hemoglobinopathy MCH 21.0 L Hemoglobinopathy RDW 18.5 H pCO2 pO2 HCO3 ABG pH ABG Total CO2 ABG O2 Saturation ABG O2 Content ABG Base Excess ABG Hemoglobin ABG Carboxyhemoglobin POC ABG HHb (Measured) ABG Methemoglobin ABG O2 Capacity Hgb O2 Saturation FiO2 Sodium Potassium Chloride Carbon Dioxide Anion Gap BUN Creatinine Est GFR ( Amer) Est GFR (Non-Af Amer) Random Glucose Calcium Phosphorus Magnesium Erythropoietin Total Bilirubin Direct Bilirubin AST ALT Alkaline Phosphatase Total Creatine Kinase Troponin I NT-Pro-B Natriuret Pep Total Protein Albumin Globulin Albumin/Globulin Ratio Stool Occult Blood Blood Type O POSITIVE Antibody Screen Negative Crossmatch See Detail BBK History Checked No verified bt 06/09/17 06/10/17 06/10/17 06:30 05:24 06:30 WBC 2.4 L* D RBC 3.72 Hgb 7.6 L Hct 30.1 L MCV 80.9 MCH 20.4 L MCHC 25.2 L RDW 17.8 H Plt Count 271 MPV 10.8 Gran % 77.7 H Lymph % (Auto) 18.1 L Wharton % (Auto) 4.2 Eos % (Auto) 0.0 L Baso % (Auto) 0.0 Gran # 1.84 Lymph # 0.4 L Wharton # 0.1 Eos # 0.0 Baso # 0.00 Sickle Cell Screen Hemoglobinopathy Red Blood Count Hemoglobinopathy Hct Hemoglobinopathy Hgb Hemoglobinopathy MCV Hemoglobinopathy MCH Hemoglobinopathy RDW pCO2 89 H* pO2 114.0 H HCO3 50.3 H* ABG pH 7.36 ABG Total CO2 53.0 H ABG O2 Saturation 99.9 H ABG O2 Content 10.8 L ABG Base Excess 22.0 H ABG Hemoglobin 7.8 L ABG Carboxyhemoglobin 2.6 H POC ABG HHb (Measured) 0.1 ABG Methemoglobin 0.8 ABG O2 Capacity 10.8 L Hgb O2 Saturation 96.5 FiO2 30.0 Sodium Potassium Chloride Carbon Dioxide Anion Gap BUN Creatinine Est GFR ( Amer) Est GFR (Non-Af Amer) Random Glucose Calcium Phosphorus Magnesium Erythropoietin 40.0 H Total Bilirubin Direct Bilirubin AST ALT Alkaline Phosphatase Total Creatine Kinase Troponin I NT-Pro-B Natriuret Pep Total Protein Albumin Globulin Albumin/Globulin Ratio Stool Occult Blood Blood Type Antibody Screen Crossmatch BBK History Checked 06/10/17 06/10/17 06:30 18:34 WBC RBC Hgb Hct MCV MCH MCHC RDW Plt Count MPV Gran % Lymph % (Auto) Wharton % (Auto) Eos % (Auto) Baso % (Auto) Gran # Lymph # Wharton # Eos # Baso # Sickle Cell Screen Hemoglobinopathy Red Blood Count Hemoglobinopathy Hct Hemoglobinopathy Hgb Hemoglobinopathy MCV Hemoglobinopathy MCH Hemoglobinopathy RDW pCO2 pO2 HCO3 ABG pH ABG Total CO2 ABG O2 Saturation ABG O2 Content ABG Base Excess ABG Hemoglobin ABG Carboxyhemoglobin POC ABG HHb (Measured) ABG Methemoglobin ABG O2 Capacity Hgb O2 Saturation FiO2 Sodium 139 Potassium 4.4 Chloride 93 L Carbon Dioxide 44 H Anion Gap 6 L BUN 35 H Creatinine 0.6 L Est GFR ( Amer) > 60 Est GFR (Non-Af Amer) > 60 Random Glucose 114 H Calcium 9.5 Phosphorus 3.0 Magnesium 2.3 H Erythropoietin Total Bilirubin 0.4 Direct Bilirubin 0.4 AST 26 ALT 29 Alkaline Phosphatase 52 Total Creatine Kinase 25 L Troponin I 0.04 D NT-Pro-B Natriuret Pep 1520 H Total Protein 6.9 Albumin 3.9 Globulin 3.1 Albumin/Globulin Ratio 1.3 Stool Occult Blood Negative Blood Type Antibody Screen Crossmatch BBK History Checked Assessment & Plan (1) Anemia Assessment and Plan: work up consistent with iron deficiency; low ferritin appears to be chronic as ferritin was borderline low in 2016 FOBT negative but likely chronic intermittent GI blood loss; pt on aspirin would likely benefit from capsule endoscopy and continued GI f/u as an outpatient agree with PRBC transfusion support and IV Venofer Status: Acute (2) Leukopenia Assessment and Plan: no neutropenia HIV sent, will send hepatitis panel likely benign as pt was admitted with normal WBC ? exacerbated by medication cont. to monitor Thank you for this interesting consult. Status: Acute
[2017-06-10] MEDS ORDERED: MethylPREDNISolone 40 mg Vial IVP SCH (22:00)
--- NOTE | 2017-06-10 23:18 | CON ---
DATE: 06/10/2017 HISTORY: The patient is a 72-year-old woman who presents to the emergency room with dyspnea. The patient suffers from COPD. She also has documented moderate pulmonary hypertension. The patient's previous cardiac workup has included a stress test which was performed in 12/2016. The results of the stress test revealed an LV ejection fraction of 69% with no ischemia noted. In addition, her echocardiogram which was done also in 12/2016 revealed good LV function with a dilated LA as well as [id number] mitral regurgitation and moderate pulmonary hypertension with good LV function. The patient suffers from hypercholesterolemia as well as hypertension and is on albuterol for history of bronchospasm. SOCIAL HISTORY: She does not smoke. REVIEW OF SYSTEMS: A 14-point review of systems was reviewed in detail. No angina. No edema. Her dyspnea improving with treatment. No other cardiac symptomatology noted. PHYSICAL EXAMINATION: VITAL SIGNS: Blood pressure is 121/72, heart rate in the 80s. NECK: Negative JVD. LUNGS: No rales noted. Heart: Reveals S1 and S2. EXTREMITIES: Without edema. EKG shows no acute changes. LABORATORY DATA: Hemoglobin on admission was 8 which has gone down to 7.6. Chemistries; BUN and creatinine reveals 35 and 0.6. Troponins are negative x2. Cholesterol is 207. IMPRESSION: 1. Exacerbation of chronic obstructive pulmonary disease. 2. Bronchitis. 3. Pulmonary hypertension. 4. Severe anemia. 5. Normal LV function. 6. Mitral regurgitation. 7. Diastolic compliance issues. 8. Hypercholesterolemia. Given these findings, I agree with her packed red blood cell transfusion. We will need to be careful of her volume status given her diastolic noncompliance in the left ventricle. Marcelo Parry MD
--- NOTE | 2017-06-11 01:52 | PN ---
DATE: 06/10/2017 LOCATION: The patient is seen in room ICU, bed 5. HISTORY OF PRESENT ILLNESS: The patient is off the BiPAP mask. The patient is seen lying in the bed. The patient was taken off the BiPAP this morning, placed on 2 L nasal cannula, O2 sat was 100%, heart rate 90, respiration 32 as per the respiratory note.. Overnight nurse's notes were reviewed. The patient was put on BiPAP overnight. PHYSICAL EXAMINATION: VITAL SIGNS: T-max 99.8, down to 98.7. Telemetry shows sinus rhythm, heart rate in 90s to 95 to 89, blood pressure in the last 24 hours averaging systolic in low 100s to 110, 120s; diastolic in 70s and 60 mmHg. Respirations is in the last 24 hours ranging from mid 20s to mid 30s and low 30s per minute, O2 sat in the last 24 hours ranging from high 90s to 100 on nasal cannula and BiPAP. Intake 1200, output 200. HEENT: Head: Normocephalic, atraumatic. HEENT examination shows pinkish pale conjunctivae. Anicteric sclerae. The patient is on nasal cannula at present. NECK: No neck rigidity. Positive thyromegaly noted. CHEST: Kyphosis. LUNGS: Examination shows improved air entry, decreasing wheezing, decreasing rhonchi. CARDIOVASCULAR: Shows S1, S2, regular rhythm. Positive systolic murmur in right second intercostal space, left sternal border, left second intercostal space. ABDOMEN: Soft. Positive bowel sounds. GENITALIA: Female. RECTAL: Examination is deferred. EXTREMITY: Shows no pitting edema. No calf tenderness. No Homans sign. MUSCULOSKELETAL: Examination shows a body mass index of 25. NEUROLOGIC: Cranial nerves II-XII limited. Gait examination not tested. VASCULAR: Palpable pulses. PSYCHIATRIC: Not applicable. DIAGNOSTICS: On 06/10, WBC count is down to 2.4, hemoglobin/hematocrit 7.6/30.1, platelets 271. Granulocytes 78% segs. Sickle cell screen is negative. Hemoglobin electrophoresis pending. ABG from 06/10, pH of 7.36, pCO2 of 89, pO2 of 114, bicarb 50, saturation of 99.9% on 30% FiO2. Chemistry on 06/10, sodium 139, potassium 4.4, chloride 93, CO2 of 44, anion gap 6, BUN 35, creatinine 0.6, GFR greater than 60, glucose 114, calcium 9.5, phosphorus 3.0, magnesium 2.3, iron 11, iron saturation 3, erythropoietin 40, ferritin is 5.6. BNP is down to 1520 from 4020. Troponin is 0.04, indeterminate. MRSA nares was negative. The patient's EKG from today shows sinus rhythm, left ventricular hypertrophy, T-wave asymmetry with T-wave inversion in I, aVL, V5, V6. The patient was seen by transportation specialist and Pulmonary this morning. The patient was seen by Dr. Luna. The patient's GI recommendation was noted. GI also recommends transfusion of PRBC. The patient's yesterday's order for PRBC transfusion was not carried out. IMPRESSION AND PLAN: 1. Acute hypercarbic hypoxic respiratory failure with respiratory acidosis and hypercapnia and carbon dioxide narcosis. 2. Anemia with decreasing hemoglobin/hematocrit with leukopenia. 3. Hypotension. 4. Tachycardia. 5. Tachypnea. 6. Hypoxemia. 7. Leukopenia, anemia. 8. Gram-negative bacteremia, sepsis, septic shock, hypernatremia, acute renal failure. 9. Hypochloremic metabolic alkalosis. 10. Prerenal kidney injury. 11. Iron deficiency. 12. Right-sided diastolic congestive heart failure with pulmonary arterial hypertension with elevated right ventricular systolic pressure with elevated BNP. 13. History of hypothyroidism. 14. Bilevel positive airway pressure dependent respiratory failure. 1. Acute hypercarbic hypoxic respiratory failure, BiPAP dependent. 2. Hypercarbia. 3. Hypoxemia. 4. Systemic inflammatory response syndrome. 5. Tachycardia. 6. Questionable paroxysmal atrial fibrillation. 7. Hypotension. 8. Hypoxemia. 9. Neutropenia, anemia, granulocytosis and bandemia. 10. Respiratory acidosis with hypercarbia, CO2 narcosis and hypoxemia. 11. Acute hypercarbic hypoxic respiratory failure. 12. Hypochloremic metabolic alkalosis. 13. Hyperglycemia. 14. Iron-deficiency anemia. 15. Elevated BNP of greater than 4370. 16. Right-sided diastolic congestive heart failure with elevated right ventricular systolic pressure of 50 mmHg with concentric left ventricular hypertrophy and moderate pulmonary hypertension and tricuspid regurgitation. 17. Moderately dilated left atrium. 18. Moderate mitral regurgitation. 19. Thickened mitral valve, tricuspid valve and aortic valve. 20. Moderate pulmonary hypertension. 21. History of hypothyroidism. 22. O positive blood type. 23. Left ventricular hypertrophy with ST-T changes in anterolateral leads. 24. Sinus tachycardia. 25. Questionable paroxysmal atrial fibrillation noted on telemetry monitoring. 26. Normocytic iron-deficiency anemia. 27. Acute exacerbation of advanced chronic obstructive pulmonary disease. 28. Hypercarbia with CO2 narcosis. 29. Iron-deficiency anemia. 30. History of poor compliance. 31. History of dyslipidemia, hypothyroidism. 32. History of constipation. 33. History of hypercapnic hypercarbic ventilator-dependent respiratory failure with history of respiratory acidosis and hypercarbia, history of severe exacerbation of chronic obstructive pulmonary disease, history of CO2 narcosis, history of coronary ischemic changes with normal stress test. 34. Diastolic congestive heart failure. 1. Acute hypercarbic hypoxic respiratory failure requiring bilevel positive airway pressure. 2. Carbon dioxide narcosis. 3. Severe hypercarbia. 4. Severe respiratory acidosis with hypercarbia and carbon dioxide narcosis. 5. Severe hypoxemia. 6. Acute exacerbation of chronic obstructive pulmonary disease with hypercarbic hypoxic respiratory failure with carbon dioxide narcosis, hypoxemia, hypercarbia and respiratory acidosis. 7. Microcytic anemia, etiology unclear, but the patient has decreased hemoglobin since the previous visit. 8. Sinus tachycardia. 9. Hypochloremia metabolic alkalosis. 10. Hyperglycemia. 11. Right-sided diastolic congestive heart failure with elevated BNP of 4020. 12. History of hypothyroidism with normal thyroid profile at present. 13. Hypochloremic metabolic alkalosis. 14. Questionable cardiomegaly on chest x-ray. 15. Sinus tachycardia. 16. Hypertensive cardiovascular disease with T-wave changes in lead I, aVL, V4-V6 and left ventricular hypertrophy pattern. 17. Anemia with decreasing hemoglobin. 18. Hypercarbia with carbon dioxide narcosis. 19. Acute exacerbation of chronic obstructive pulmonary disease. 20. Moderate pulmonary hypertension with elevated right ventricular systolic pressure and tricuspid regurgitation. Plan at this time, the patient has been ordered transfusion of 2 units of PRBC for a goal hemoglobin of around 10 g. The patient has been ordered serial labs. Repeat CBC ordered. CONSULTATIONS: The patient's current consultations are, 1. Gastroenterology. 2. Cardiology. 3. Pulmonary. 4. Hematology/Oncology. 5. Gastroenterology. CURRENT MEDICATIONS: 1. Mucomyst and Xopenex nebulizer every 6 hours. 2. Doxycycline 100 mg IV q. 12. 3. Venofer 200 mg IV daily x3 doses. 4. MiraLax 17 g twice a day. 5. Protonix 40 mg twice a day. 6. Pulmicort nebulizer 0.5 mg q. 12 hours. 7. Rocephin 1 g IV daily. 8. Solu-Medrol decreased by the medical staff physician 40 mg IV q. 12. Steroid treatment was decreased by the medical staff physician, but Pulmonary does not recommend decreasing the steroids. The steroid titration was done without discussing the case with Pulmonary or me. 9. Tessalon 200 three times a day. The patient's repeat chest x-ray ordered. The patient is on BiPAP 16/, FiO2 of 30%, rate of 12. The patient has been ordered repeat chest x-ray, repeat EKG for the morning. The patient has been ordered to elevate head of the bed. ADRIANNA buckley, SCDs. Transfusion of 2 units ordered today. Stool for occult blood ordered. Hematology consultation requested. Time spent in the entire management, more than 35 minutes. Dictated and electronically signed, not read. Signing off Garett Rodríguez MD [facility]
[2017-06-11] MEDS: Acetylcysteine 20% Inhal Soln (4ml) IH SCH ×4 (02:21→20:45)
[2017-06-11] MEDS: Levalbuterol 0.63 MG/3 ML Inhal Soln UD IH SCH ×4 (02:22→20:45)
[2017-06-11] MEDS: Pantoprazole 40 mg EC Tab PO SCH ×2 (06:03→18:20)
[2017-06-11 06:38] LABS: HEMOGLOBIN F <1.0 Percent (<2.0)
[2017-06-11 06:51] LABS: GRAN # 4.41 (1.4-6.5); GRAN % 87.8 % (50.0-68.0); HEMATOCRIT 37.2 % (36.0-48.0); LYMPH # 0.5 (1.2-3.4); LYMPH % 9.8 % (22.0-35.0); MEAN CELL VOLUME 82.7 fl (80.0-105.0); MEAN CORPUSCULAR HEMOGLOBIN 23.3 pg (25.0-35.0); MEAN CORPUSCULAR HGB CONC 28.2 g/dl (31.0-37.0); MEAN PLATELET VOLUME 10.3 fl (7.0-11.0); MONO # 0.1 (0.1-0.6); MONO % 2.4 % (1.0-6.0); RED CELL DISTRIBUTION WIDTH 17.8 % (11.5-14.5)
[2017-06-11 07:13] LABS: ALB/GLOB RATIO 1.3 (1.1-1.8); ALKALINE PHOSPHATASE 52 U/L (38-126); ALT/SGPT 40 U/L (7-56); AST/SGOT 31 U/L (14-36); BILIRUBIN,DIRECT 0.4 mg/dL (0.0-0.4); BILIRUBIN,TOTAL 0.4 mg/dL (0.2-1.3); BLOOD UREA NITROGEN 26 mg/dL (7-21); CALCIUM 9.4 mg/dL (8.4-10.5); CARBON DIOXIDE 39 mmol/L (21-33); CHLORIDE 95 mmol/L (98-107); GFR AFRICAN-AMERICAN > 60; GLUCOSE,RANDOM 115 mg/dL (70-110); MAGNESIUM 2.3 mg/dL (1.7-2.2); PHOSPHOROUS 2.5 mg/dL (2.5-4.5); POTASSIUM 4.7 mmol/L (3.6-5.0); SODIUM 140 mmol/L (132-148); TOTAL PROTEIN 6.8 g/dL (5.8-8.3)
[2017-06-11] MEDS: Budesonide 0.5 mg/2 ml Inhal Susp UD IH SCH ×2 (07:47→20:45)
--- NOTE | 2017-06-11 08:11 | PN ---
SUBJECTIVE: The patient appears comfortable this morning. She is not short of breath at rest. PHYSICAL EXAMINATION: VITAL SIGNS: Temperature 98.6, pulse 81, respirations 16/18, blood pressure 114/72. Oxygen saturation on nasal cannula is 98%. HEENT: Normocephalic, atraumatic. NECK: No JVD. CARDIOVASCULAR: Positive S1, S2. No S3 gallop. LUNGS: Decreased breath sounds at the bases. Minimal/less rhonchi. No wheezing this morning. EXTREMITIES: Mild edema. No cyanosis, no clubbing. Calves are nontender to palpation. GASTROINTESTINAL: Abdomen is soft, nontender and nondistended. Bowel sounds are positive. SKIN: No acute rash. NEUROLOGIC: Limited at the present time. PERTINENT LABORATORY DATA: Chest x-ray was repeated this morning and reviewed. There are no acute changes noted. IMPRESSION: 1. Respiratory failure. 2. Advanced chronic obstructive pulmonary disease. 3. Asthma. 4. Acute bronchitis. 5. Cardiac arrhythmias. 6. Anemia. PLAN: The patient appears comfortable this morning. She is not short of breath at rest. She does state to feeling much better overall. I did discuss the case with the night nurse at length. The night nurse stated that the patient had a very good night. The patient also had a repeat chest x-ray this morning. There is no acute disease noted. Official results are pending. On physical exam, the patient's bronchospasm is certainly less overall. In addition, the alveolar-arterial gradient is also significantly less overall. I will continue with the current nebulizer treatments and low-dose intravenous steroids (decreased yesterday) for now. The patient also remains on antibiotic therapy. There are no temperatures noted. There is no leukocytosis. GI and Cardiology evaluations are noted. Clinical status of the patient is significantly improved. I will discuss the above with the entire ICU team in the next few moments. I will also discuss the above with the attending physician later this morning. Edin Aguila MD [facility] HOSPITALBrandy
--- NOTE | 2017-06-11 08:18 | CP.CCUPN ---
<Leo Lynch - Last Filed: 06/11/17 09:58> CCU Subjective - Physician Review Subjective (Free Text): Critical care progress note - Leo Cris PGY2 Patient seen and examined at bedside. No acute overnight events or new complaints reported. Tolerating BiPAP well overnight and saturating 100% on 2LNC. Hgb with marked improvement s/p 2 unit pRBC. Hematology consult reviewed, appreciate recommendations - chronic iron deficiency anemia. Denies chest pain, palpitations, SOB. CCU Objective - Vital Signs / Intake & Output Vital Signs (Last 4 hours): Vital Signs Pulse Resp BP Pulse Ox 06/11/17 08:10 73 26 H 100 06/11/17 08:00 74 25 H 99 06/11/17 07:50 74 32 H 100 06/11/17 07:40 77 39 H 99 06/11/17 07:30 80 37 H 100 06/11/17 07:24 73 29 H 123/73 100 06/11/17 07:20 74 35 H 100 06/11/17 07:10 75 34 H 100 06/11/17 07:00 69 32 H 99 06/11/17 06:50 71 32 H 100 06/11/17 06:40 80 41 H 100 06/11/17 06:30 71 38 H 100 06/11/17 06:24 75 31 H 130/79 100 06/11/17 06:20 76 34 H 100 06/11/17 06:10 75 29 H 99 06/11/17 06:00 79 37 H 99 06/11/17 05:50 76 41 H 99 06/11/17 05:40 73 31 H 99 06/11/17 05:30 74 30 H 98 06/11/17 05:23 74 38 H 129/84 99 06/11/17 05:20 74 28 H 98 06/11/17 05:10 82 34 H 98 06/11/17 05:00 83 40 H 98 06/11/17 04:50 79 38 H 99 06/11/17 04:40 83 38 H 100 06/11/17 04:30 77 36 H 99 06/11/17 04:23 81 26 H 125/71 99 06/11/17 04:20 96 H 37 H 98 Intake and Output (Last 8hrs): Intake & Output 06/10/17 06/11/1717 22:59 06:59 14:59 Intake Total 1925 Output Total 900 Balance 1025 Intake: IV 1000 Left Hand 1000 Oral 900 Blood Product 0 Red Blood Cells Cp2d As3 0 Lr Unit [id number] Other 25 Red Blood Cells Cp2d As3 25 Lr Unit [id number] Output: Urine/Stool Mix 900 Other: # Bowel Movements 2 - Physical Exam Head: Positive for: Atraumatic, Normocephalic Pupils: Positive for: PERRL Extroacular Muscles: Positive for: EOMI Conjunctiva: Positive for: Normal Ears: Positive for: NORMAL TM. Negative for: Erythema Mouth: Positive for: Moist Mucous Membranes Pharnyx: Negative for: ERYTHEMA, EXUDATE, TONSILS ENLARGED Neck: Positive for: Normal Range of Motion Respiratory/Chest: Positive for: Wheezes (faint expiratory wheezing). Negative for: Respiratory Distress, Rales, Retracting, Tender to Palpation Cardiovascular: Positive for: Regular Rate and Rhythm, Normal S1, S2. Negative for: Murmurs, Rub, Gallop Abdomen: Positive for: Normal Bowel Sounds. Negative for: Tenderness, Distention, Peritoneal Signs, Rebound, Guarding Back: Positive for: Normal Inspection Upper Extremity: Positive for: Normal Inspection. Negative for: Cyanosis, Edema Lower Extremity: Positive for: Normal Inspection. Negative for: Edema Neurological: Positive for: GCS=15, CN II-XII Intact, Speech Normal, Motor Func Grossly Intact Skin: Positive for: Warm, Dry, Normal Color. Negative for: Rashes Psychiatric: Positive for: Alert, Oriented x 3, Normal Insight, Normal Concentration - Medications Active Medications: Active Medications Generic Name Dose Route Start Last Admin Trade Name Freq PRN Reason Stop Dose Admin Acetylcysteine 4 ml 06/09/17 09:00 06/11/17 07:47 Acetylcysteine 20% IH 4 ml [id number] KRISTINE Administration Benzonatate 200 mg 06/09/17 10:00 06/10/17 17:52 Tessalon Perles PO 200 mg TID KRISTINE Administration Budesonide 0.5 mg 06/09/17 08:00 06/11/17 07:47 Pulmicort Respules IH 0.5 mg [id number] KRISTINE Administration Enoxaparin Sodium 40 mg 06/09/17 10:00 06/10/17 10:23 Lovenox SC 40 mg DAILY KRISTINE Administration Protocol Doxycycline Hyclate 100 mg/ 100 mls @ 100 mls/hr 06/08/17 22:00 06/10/17 21: 15 Sodium Chloride IVPB 100 mls/hr Q12 KRISTINE Administration Protocol Ceftriaxone Sodium 1 gm in 100 mls @ 100 mls/hr 06/09/17 10:00 06/10/17 10:23 Rocephin 1 Gram Ivpb IVPB 100 mls/hr DAILY KRISTINE Administration Protocol Iron Sucrose 200 mg/ Sodium 110 mls @ 110 mls/hr 06/09/17 11:30 06/10/17 10: 21 Chloride IVPB 06/13/17 10:59 110 mls/hr DAILY KRISTINE Administration Levalbuterol HCl 0.63 mg 06/09/17 09:00 06/11/17 07:48 Xopenex IH 0.63 mg [id number] KRISTINE Administration Methylprednisolone 40 mg 06/10/17 22:00 06/10/17 21:15 Solu-Medrol IVP 40 mg Q12 KRISTINE Administration Pantoprazole Sodium 40 mg 06/09/17 06:00 06/11/17 06:03 Protonix Ec Tab PO 40 mg 0600,1600 KRISTINE Administration Polyethylene Glycol 17 gm 06/09/17 11:30 06/10/17 17:52 Miralax PO 17 gm BID KRISTINE Administration - Patient Studies Lab Studies: Microbiology Studies 06/08/17 19:00 MRSA Culture (Admit) - Final Naris MRSA NOT DETECTED Lab Studies 06/11/17 06/11/17 06/11/17 Range/Units 05:30 05:30 05:00 WBC 5.0 D (4.5-11.0) 10^3/ul RBC 4.50 (3.5-6.1) 10^6/uL Hgb 10.5 L D (12.0-16.0) g/dL Hct 37.2 (36.0-48.0) % MCV 82.7 (80.0-105.0) fl MCH 23.3 L (25.0-35.0) pg MCHC 28.2 L (31.0-37.0) g/dl RDW 17.8 H (11.5-14.5) % Plt Count 207 (120.0-450.0) 10^3/uL MPV 10.3 (7.0-11.0) fl Gran % 87.8 H (50.0-68.0) % Lymph % (Auto) 9.8 L (22.0-35.0) % Candler % (Auto) 2.4 (1.0-6.0) % Eos % (Auto) 0.0 L (1.5-5.0) % Baso % (Auto) 0.0 (0.0-3.0) % Gran # 4.41 (1.4-6.5) Lymph # 0.5 L (1.2-3.4) Candler # 0.1 (0.1-0.6) Eos # 0.0 (0.0-0.7) Baso # 0.00 (0.0-2.0) K/mm3 Sickle Cell Screen (Negative) Hemoglobin A (>96.0) Percent Hemoglobin A2 (1.8-3.5) Percent Hemoglobin C (0.0-0.0) Percent Hemoglobin F () (<2.0) Percent Hemoglobin S (0.0-0.0) Percent Variant Hemoglobin (0.0-0.0) Percent Hemoglobinopathy Interp Sodium 140 (132-148) mmol/L Potassium 4.7 (3.6-5.0) mmol/L Chloride 95 L (98-107) mmol/L Carbon Dioxide 39 H (21-33) mmol/L Anion Gap 12 (10-20) BUN 26 H (7-21) mg/dL Creatinine 0.6 L (0.7-1.2) mg/dl Est GFR ( Amer) > 60 Est GFR (Non-Af Amer) > 60 Random Glucose 115 H (70-110) mg/dL Calcium 9.4 (8.4-10.5) mg/dL Phosphorus 2.5 (2.5-4.5) mg/dL Magnesium 2.3 H (1.7-2.2) mg/dL Erythropoietin (2.6-18.5) mIU/mL Total Bilirubin 0.4 (0.2-1.3) mg/dL Direct Bilirubin 0.4 (0.0-0.4) mg/dL AST 31 (14-36) U/L ALT 40 (7-56) U/L Alkaline Phosphatase 52 (38-126) U/L Total Creatine Kinase (35-230) U/L Troponin I ng/mL NT-Pro-B Natriuret Pep 858 H (0-450) pg/mL Total Protein 6.8 (5.8-8.3) g/dL Albumin 3.8 (3.0-4.8) g/dL Globulin 3.0 gm/dL Albumin/Globulin Ratio 1.3 (1.1-1.8) Stool Occult Blood (NEGATIVE) WB Flow Cytometry Reference test Blood Type Antibody Screen Crossmatch BBK History Checked 06/10/17 06/10/17 06/09/17 Range/Units 18:34 06:30 06:30 WBC (4.5-11.0) 10^3/ul RBC (3.5-6.1) 10^6/uL Hgb (12.0-16.0) g/dL Hct (36.0-48.0) % MCV (80.0-105.0) fl MCH (25.0-35.0) pg MCHC (31.0-37.0) g/dl RDW (11.5-14.5) % Plt Count (120.0-450.0) 10^3/uL MPV (7.0-11.0) fl Gran % (50.0-68.0) % Lymph % (Auto) (22.0-35.0) % Candler % (Auto) (1.0-6.0) % Eos % (Auto) (1.5-5.0) % Baso % (Auto) (0.0-3.0) % Gran # (1.4-6.5) Lymph # (1.2-3.4) Candler # (0.1-0.6) Eos # (0.0-0.7) Baso # (0.0-2.0) K/mm3 Sickle Cell Screen (Negative) Hemoglobin A (>96.0) Percent Hemoglobin A2 (1.8-3.5) Percent Hemoglobin C (0.0-0.0) Percent Hemoglobin F () (<2.0) Percent Hemoglobin S (0.0-0.0) Percent Variant Hemoglobin (0.0-0.0) Percent Hemoglobinopathy Interp Sodium 139 (132-148) mmol/L Potassium 4.4 (3.6-5.0) mmol/L Chloride 93 L (98-107) mmol/L Carbon Dioxide 44 H (21-33) mmol/L Anion Gap 6 L (10-20) BUN 35 H (7-21) mg/dL Creatinine 0.6 L (0.7-1.2) mg/dl Est GFR ( Amer) > 60 Est GFR (Non-Af Amer) > 60 Random Glucose 114 H (70-110) mg/dL Calcium 9.5 (8.4-10.5) mg/dL Phosphorus 3.0 (2.5-4.5) mg/dL Magnesium 2.3 H (1.7-2.2) mg/dL Erythropoietin 40.0 H (2.6-18.5) mIU/mL Total Bilirubin 0.4 (0.2-1.3) mg/dL Direct Bilirubin 0.4 (0.0-0.4) mg/dL AST 26 (14-36) U/L ALT 29 (7-56) U/L Alkaline Phosphatase 52 (38-126) U/L Total Creatine Kinase 25 L (35-230) U/L Troponin I 0.04 D ng/mL NT-Pro-B Natriuret Pep 1520 H (0-450) pg/mL Total Protein 6.9 (5.8-8.3) g/dL Albumin 3.9 (3.0-4.8) g/dL Globulin 3.1 gm/dL Albumin/Globulin Ratio 1.3 (1.1-1.8) Stool Occult Blood Negative (NEGATIVE) WB Flow Cytometry Blood Type Antibody Screen Crossmatch BBK History Checked 06/09/17 06/09/17 06/08/17 Range/Units 06:30 05:00 23:20 WBC (4.5-11.0) 10^3/ul RBC (3.5-6.1) 10^6/uL Hgb (12.0-16.0) g/dL Hct (36.0-48.0) % MCV (80.0-105.0) fl MCH (25.0-35.0) pg MCHC (31.0-37.0) g/dl RDW (11.5-14.5) % Plt Count (120.0-450.0) 10^3/uL MPV (7.0-11.0) fl Gran % (50.0-68.0) % Lymph % (Auto) (22.0-35.0) % Candler % (Auto) (1.0-6.0) % Eos % (Auto) (1.5-5.0) % Baso % (Auto) (0.0-3.0) % Gran # (1.4-6.5) Lymph # (1.2-3.4) Candler # (0.1-0.6) Eos # (0.0-0.7) Baso # (0.0-2.0) K/mm3 Sickle Cell Screen Negative (Negative) Hemoglobin A 97.5 (>96.0) Percent Hemoglobin A2 1.5 L (1.8-3.5) Percent Hemoglobin C 0.0 (0.0-0.0) Percent Hemoglobin F () <1.0 (<2.0) Percent Hemoglobin S 0.0 (0.0-0.0) Percent Variant Hemoglobin 0.0 (0.0-0.0) Percent Hemoglobinopathy Interp See note Sodium (132-148) mmol/L Potassium (3.6-5.0) mmol/L Chloride (98-107) mmol/L Carbon Dioxide (21-33) mmol/L Anion Gap (10-20) BUN (7-21) mg/dL Creatinine (0.7-1.2) mg/dl Est GFR ( Amer) Est GFR (Non-Af Amer) Random Glucose (70-110) mg/dL Calcium (8.4-10.5) mg/dL Phosphorus (2.5-4.5) mg/dL Magnesium (1.7-2.2) mg/dL Erythropoietin (2.6-18.5) mIU/mL Total Bilirubin (0.2-1.3) mg/dL Direct Bilirubin (0.0-0.4) mg/dL AST (14-36) U/L ALT (7-56) U/L Alkaline Phosphatase (38-126) U/L Total Creatine Kinase (35-230) U/L Troponin I ng/mL NT-Pro-B Natriuret Pep (0-450) pg/mL Total Protein (5.8-8.3) g/dL Albumin (3.0-4.8) g/dL Globulin gm/dL Albumin/Globulin Ratio (1.1-1.8) Stool Occult Blood (NEGATIVE) WB Flow Cytometry Blood Type O POSITIVE Antibody Screen Negative Crossmatch See Detail BBK History Checked No verified bt Laboratory Results - last 24 hr 06/08/17 06/09/17 06/09/17 23:20 05:00 06:30 WBC RBC Hgb Hct MCV MCH MCHC RDW Plt Count MPV Gran % Lymph % (Auto) Candler % (Auto) Eos % (Auto) Baso % (Auto) Gran # Lymph # Candler # Eos # Baso # Sickle Cell Screen Negative Hemoglobin A 97.5 Hemoglobin A2 1.5 L Hemoglobin C 0.0 Hemoglobin F () <1.0 Hemoglobin S 0.0 Variant Hemoglobin 0.0 Hemoglobinopathy Interp See note Sodium Potassium Chloride Carbon Dioxide Anion Gap BUN Creatinine Est GFR ( Amer) Est GFR (Non-Af Amer) Random Glucose Calcium Phosphorus Magnesium Erythropoietin Total Bilirubin Direct Bilirubin AST ALT Alkaline Phosphatase Total Creatine Kinase Troponin I NT-Pro-B Natriuret Pep Total Protein Albumin Globulin Albumin/Globulin Ratio Stool Occult Blood WB Flow Cytometry Blood Type O POSITIVE Antibody Screen Negative Crossmatch See Detail BBK History Checked No verified bt 06/09/17 06/10/17 06/10/17 06:30 06:30 18:34 WBC RBC Hgb Hct MCV MCH MCHC RDW Plt Count MPV Gran % Lymph % (Auto) Candler % (Auto) Eos % (Auto) Baso % (Auto) Gran # Lymph # Candler # Eos # Baso # Sickle Cell Screen Hemoglobin A Hemoglobin A2 Hemoglobin C Hemoglobin F () Hemoglobin S Variant Hemoglobin Hemoglobinopathy Interp Sodium 139 Potassium 4.4 Chloride 93 L Carbon Dioxide 44 H Anion Gap 6 L BUN 35 H Creatinine 0.6 L Est GFR ( Amer) > 60 Est GFR (Non-Af Amer) > 60 Random Glucose 114 H Calcium 9.5 Phosphorus 3.0 Magnesium 2.3 H Erythropoietin 40.0 H Total Bilirubin 0.4 Direct Bilirubin 0.4 AST 26 ALT 29 Alkaline Phosphatase 52 Total Creatine Kinase 25 L Troponin I 0.04 D NT-Pro-B Natriuret Pep 1520 H Total Protein 6.9 Albumin 3.9 Globulin 3.1 Albumin/Globulin Ratio 1.3 Stool Occult Blood Negative WB Flow Cytometry Blood Type Antibody Screen Crossmatch BBK History Checked 06/11/17 06/11/17 06/11/17 05:00 05:30 05:30 WBC 5.0 D RBC 4.50 Hgb 10.5 L D Hct 37.2 MCV 82.7 MCH 23.3 L MCHC 28.2 L RDW 17.8 H Plt Count 207 MPV 10.3 Gran % 87.8 H Lymph % (Auto) 9.8 L Candler % (Auto) 2.4 Eos % (Auto) 0.0 L Baso % (Auto) 0.0 Gran # 4.41 Lymph # 0.5 L Candler # 0.1 Eos # 0.0 Baso # 0.00 Sickle Cell Screen Hemoglobin A Hemoglobin A2 Hemoglobin C Hemoglobin F () Hemoglobin S Variant Hemoglobin Hemoglobinopathy Interp Sodium 140 Potassium 4.7 Chloride 95 L Carbon Dioxide 39 H Anion Gap 12 BUN 26 H Creatinine 0.6 L Est GFR ( Amer) > 60 Est GFR (Non-Af Amer) > 60 Random Glucose 115 H Calcium 9.4 Phosphorus 2.5 Magnesium 2.3 H Erythropoietin Total Bilirubin 0.4 Direct Bilirubin 0.4 AST 31 ALT 40 Alkaline Phosphatase 52 Total Creatine Kinase Troponin I NT-Pro-B Natriuret Pep 858 H Total Protein 6.8 Albumin 3.8 Globulin 3.0 Albumin/Globulin Ratio 1.3 Stool Occult Blood WB Flow Cytometry Reference test Blood Type Antibody Screen Crossmatch BBK History Checked EKG/Cardiology Studies: Cardiology / EKG Studies 06/11/17 07:00 EKG [ELECTROCARDIOGRAM] DAILY Comment: Reason For Exam: [email or web address].[email or web address] Critical Care Progress Note - Nutrition Nutrition: Nutrition Category Date Time Status Heart Healthy Diet [DIET] Diets 06/09/17 Lunch Ordered Assessment/Plan - Assessment and Plan (Free Text) Plan: 72 year old female with a PMH of asthma, COPD, pulmonary hypertension, and diastolic CHF who presented with acute hypercapneic respiratory failure requiring BiPAP. Presently saturating 100% on 2LNC, no acute distress with marked improvement since admission. Neuro: -awake, alert, oriented x3; responding to questions appropriately -AMS on admission likely secondary to CO2 narcosis, presently resolved Cardio: -Echo from 01/03/17 revealed EF of 66%, LVH with good LV function, moderately dilated LA, mild-mod MR, mild TR, and moderate pulmonary HTN RVSP 49 -Troponins negative x3 -Hemodynamically stable, will maintain MAP > 65 -Cardiology consulted - Dr. Parry Pulm: -Patient presented with acute hypercapnic respiratory failure requiring BiPAP however markedly improved since admission -Tolerating BiPAP well at night and saturating 100% on 2LNC during the day -Continue with xopenex and pulmicort -Continue solumedrol taper -Continue with rocephin and doxycyline -HOB> 30' GI: -Protonix for GI prophylaxis -Heart healthy diet Heme: -No overt signs of bleeding -FOBT negative -Transfused 2 unit PRBC yesterday with hgb improved from 7.6 to 10.5 -Hematology consult reviewed; anemia secondary to iron deficiency -DVT prophylaxis with lovenox Nephro: -BUN/Cr within normal limits -Monitor and replete electrolytes as indicated ID: -afebrile, no leukocytosis -Continue with rocephin and doxycyline Patient seen and case discussed/reviewed with attending, Dr. Modi <Sheldon Modi - Last Filed: 06/11/17 11:14> CCU Objective - Vital Signs / Intake & Output Vital Signs (Last 4 hours): Vital Signs Pulse Resp BP Pulse Ox 06/11/17 08:10 73 26 H 100 06/11/17 08:00 74 25 H 99 06/11/17 07:50 74 32 H 100 06/11/17 07:40 77 39 H 99 06/11/17 07:30 80 37 H 100 06/11/17 07:24 73 29 H 123/73 100 06/11/17 07:20 74 35 H 100 Intake and Output (Last 8hrs): Intake & Output 06/10/17 06/11/17 06/11/17 22:59 06:59 14:59 Intake Total 1925 Output Total 900 Balance 1025 Intake: IV 1000 Left Hand 1000 Oral 900 Blood Product 0 Red Blood Cells Cp2d As3 0 Lr Unit [id number] Other 25 Red Blood Cells Cp2d As3 25 Lr Unit [id number] Output: Urine/Stool Mix 900 Other: # Bowel Movements 2 - Medications Active Medications: Active Medications Generic Name Dose Route Start Last Admin Trade Name Freq PRN Reason Stop Dose Admin Acetylcysteine 4 ml 06/09/17 09:00 06/11/17 07:47 Acetylcysteine 20% IH 4 ml [id number] KRISTINE Administration Benzonatate 200 mg 06/09/17 10:00 06/11/17 09:42 Tessalon Perles PO 200 mg TID KRISTINE Administration Budesonide 0.5 mg 06/09/17 08:00 06/11/17 07:47 Pulmicort Respules IH 0.5 mg [id number] KRISTINE Administration Enoxaparin Sodium 40 mg 06/09/17 10:00 06/11/17 09:41 Lovenox SC 40 mg DAILY KRISTINE Administration Protocol Doxycycline Hyclate 100 mg/ 100 mls @ 100 mls/hr 06/08/17 22:00 06/11/17 09: 42 Sodium Chloride IVPB 100 mls/hr Q12 KRISTINE Administration Protocol Ceftriaxone Sodium 1 gm in 100 mls @ 100 mls/hr 06/09/17 10:00 06/11/17 09:42 Rocephin 1 Gram Ivpb IVPB 100 mls/hr DAILY KRISTINE Administration Protocol Iron Sucrose 200 mg/ Sodium 110 mls @ 110 mls/hr 06/09/17 11:30 06/11/17 09: 54 Chloride IVPB 06/13/17 10:59 110 mls/hr DAILY KRISTINE Administration Levalbuterol HCl 0.63 mg 06/09/17 09:00 06/11/17 07:48 Xopenex IH 0.63 mg [id number] KRISTINE Administration Methylprednisolone 20 mg 06/11/17 09:15 06/11/17 09:41 Solu-Medrol IVP 20 mg Q12 KRISTINE Administration Pantoprazole Sodium 40 mg 06/09/17 06:00 06/11/17 06:03 Protonix Ec Tab PO 40 mg 0600,1600 KRISTINE Administration Polyethylene Glycol 17 gm 06/09/17 11:30 06/11/17 09:42 Miralax PO 17 gm BID KRISTINE Administration - Patient Studies Lab Studies: Microbiology Studies 06/08/17 19:00 MRSA Culture (Admit) - Final Naris MRSA NOT DETECTED Lab Studies 06/11/17 06/11/17 06/11/17 Range/Units 05:30 05:30 05:00 WBC 5.0 D (4.5-11.0) 10^3/ul RBC 4.50 (3.5-6.1) 10^6/uL Hgb 10.5 L D (12.0-16.0) g/dL Hct 37.2 (36.0-48.0) % MCV 82.7 (80.0-105.0) fl MCH 23.3 L (25.0-35.0) pg MCHC 28.2 L (31.0-37.0) g/dl RDW 17.8 H (11.5-14.5) % Plt Count 207 (120.0-450.0) 10^3/uL MPV 10.3 (7.0-11.0) fl Gran % 87.8 H (50.0-68.0) % Lymph % (Auto) 9.8 L (22.0-35.0) % Cand[place] % (Auto) 2.4 (1.0-6.0) % Eos % (Auto) 0.0 L (1.5-5.0) % Baso % (Auto) 0.0 (0.0-3.0) % Gran # 4.41 (1.4-6.5) Lymph # 0.5 L (1.2-3.4) Candler # 0.1 (0.1-0.6) Eos # 0.0 (0.0-0.7) Baso # 0.00 (0.0-2.0) K/mm3 Hemoglobin A (>96.0) Percent Hemoglobin A2 (1.8-3.5) Percent Hemoglobin C (0.0-0.0) Percent Hemoglobin F () (<2.0) Percent Hemoglobin S (0.0-0.0) Percent Variant Hemoglobin (0.0-0.0) Percent Hemoglobinopathy Interp Sodium 140 (132-148) mmol/L Potassium 4.7 (3.6-5.0) mmol/L Chloride 95 L (98-107) mmol/L Carbon Dioxide 39 H (21-33) mmol/L Anion Gap 12 (10-20) BUN 26 H (7-21) mg/dL Creatinine 0.6 L (0.7-1.2) mg/dl Est GFR ( Amer) > 60 Est GFR (Non-Af Amer) > 60 Random Glucose 115 H (70-110) mg/dL Calcium 9.4 (8.4-10.5) mg/dL Phosphorus 2.5 (2.5-4.5) mg/dL Magnesium 2.3 H (1.7-2.2) mg/dL Erythropoietin (2.6-18.5) mIU/mL Total Bilirubin 0.4 (0.2-1.3) mg/dL Direct Bilirubin 0.4 (0.0-0.4) mg/dL AST 31 (14-36) U/L ALT 40 (7-56) U/L Alkaline Phosphatase 52 (38-126) U/L NT-Pro-B Natriuret Pep 858 H (0-450) pg/mL Total Protein 6.8 (5.8-8.3) g/dL Albumin 3.8 (3.0-4.8) g/dL Globulin 3.0 gm/dL Albumin/Globulin Ratio 1.3 (1.1-1.8) Stool Occult Blood (NEGATIVE) WB Flow Cytometry Reference test Blood Type Antibody Screen Crossmatch BBK History Checked 06/10/17 06/09/17 06/09/17 Range/Units 18:34 06:30 06:30 WBC (4.5-11.0) 10^3/ul RBC (3.5-6.1) 10^6/uL Hgb (12.0-16.0) g/dL Hct (36.0-48.0) % MCV (80.0-105.0) fl MCH (25.0-35.0) pg MCHC (31.0-37.0) g/dl RDW (11.5-14.5) % Plt Count (120.0-450.0) 10^3/uL MPV (7.0-11.0) fl Gran % (50.0-68.0) % Lymph % (Auto) (22.0-35.0) % Candler % (Auto) (1.0-6.0) % Eos % (Auto) (1.5-5.0) % Baso % (Auto) (0.0-3.0) % Gran # (1.4-6.5) Lymph # (1.2-3.4) Candler # (0.1-0.6) Eos # (0.0-0.7) Baso # (0.0-2.0) K/mm3 Hemoglobin A 97.5 (>96.0) Percent Hemoglobin A2 1.5 L (1.8-3.5) Percent Hemoglobin C 0.0 (0.0-0.0) Percent Hemoglobin F () <1.0 (<2.0) Percent Hemoglobin S 0.0 (0.0-0.0) Percent Variant Hemoglobin 0.0 (0.0-0.0) Percent Hemoglobinopathy Interp See note Sodium (132-148) mmol/L Potassium (3.6-5.0) mmol/L Chloride (98-107) mmol/L Carbon Dioxide (21-33) mmol/L Anion Gap (10-20) BUN (7-21) mg/dL Creatinine (0.7-1.2) mg/dl Est GFR ( Amer) Est GFR (Non-Af Amer) Random Glucose (70-110) mg/dL Calcium (8.4-10.5) mg/dL Phosphorus (2.5-4.5) mg/dL Magnesium (1.7-2.2) mg/dL Erythropoietin 40.0 H (2.6-18.5) mIU/mL Total Bilirubin (0.2-1.3) mg/dL Direct Bilirubin (0.0-0.4) mg/dL AST (14-36) U/L ALT (7-56) U/L Alkaline Phosphatase (38-126) U/L NT-Pro-B Natriuret Pep (0-450) pg/mL Total Protein (5.8-8.3) g/dL Albumin (3.0-4.8) g/dL Globulin gm/dL Albumin/Globulin Ratio (1.1-1.8) Stool Occult Blood Negative (NEGATIVE) WB Flow Cytometry Blood Type Antibody Screen Crossmatch BBK History Checked 06/08/17 Range/Units 23:20 WBC (4.5-11.0) 10^3/ul RBC (3.5-6.1) 10^6/uL Hgb (12.0-16.0) g/dL Hct (36.0-48.0) % MCV (80.0-105.0) fl MCH (25.0-35.0) pg MCHC (31.0-37.0) g/dl RDW (11.5-14.5) % Plt Count (120.0-450.0) 10^3/uL MPV (7.0-11.0) fl Gran % (50.0-68.0) % Lymph % (Auto) (22.0-35.0) % [place] % (Auto) (1.0-6.0) % Eos % (Auto) (1.5-5.0) % Baso % (Auto) (0.0-3.0) % Gran # (1.4-6.5) Lymph # (1.2-3.4) Candler # (0.1-0.6) Eos # (0.0-0.7) Baso # (0.0-2.0) K/mm3 Hemoglobin A (>96.0) Percent Hemoglobin A2 (1.8-3.5) Percent Hemoglobin C (0.0-0.0) Percent Hemoglobin F () (<2.0) Percent Hemoglobin S (0.0-0.0) Percent Variant Hemoglobin (0.0-0.0) Percent Hemoglobinopathy Interp Sodium (132-148) mmol/L Potassium (3.6-5.0) mmol/L Chloride (98-107) mmol/L Carbon Dioxide (21-33) mmol/L Anion Gap (10-20) BUN (7-21) mg/dL Creatinine (0.7-1.2) mg/dl Est GFR ( Amer) Est GFR (Non-Af Amer) Random Glucose (70-110) mg/dL Calcium (8.4-10.5) mg/dL Phosphorus (2.5-4.5) mg/dL Magnesium (1.7-2.2) mg/dL Erythropoietin (2.6-18.5) mIU/mL Total Bilirubin (0.2-1.3) mg/dL Direct Bilirubin (0.0-0.4) mg/dL AST (14-36) U/L ALT (7-56) U/L Alkaline Phosphatase (38-126) U/L NT-Pro-B Natriuret Pep (0-450) pg/mL Total Protein (5.8-8.3) g/dL Albumin (3.0-4.8) g/dL Globulin gm/dL Albumin/Globulin Ratio (1.1-1.8) Stool Occult Blood (NEGATIVE) WB Flow Cytometry Blood Type O POSITIVE Antibody Screen Negative Crossmatch See Detail BBK History Checked No verified bt Laboratory Results - last 24 hr 06/08/17 06/09/17 06/09/17 23:20 06:30 06:30 WBC RBC Hgb Hct MCV MCH MCHC RDW Plt Count MPV Gran % Lymph % (Auto) [place] % (Auto) Eos % (Auto) Baso % (Auto) Gran # Lymph # [place] # Eos # Baso # Hemoglobin A 97.5 Hemoglobin A2 1.5 L Hemoglobin C 0.0 Hemoglobin F () <1.0 Hemoglobin S 0.0 Variant Hemoglobin 0.0 Hemoglobinopathy Interp See note Sodium Potassium Chloride Carbon Dioxide Anion Gap BUN Creatinine Est GFR ( Amer) Est GFR (Non-Af Amer) Random Glucose Calcium Phosphorus Magnesium Erythropoietin 40.0 H Total Bilirubin Direct Bilirubin AST ALT Alkaline Phosphatase NT-Pro-B Natriuret Pep Total Protein Albumin Globulin Albumin/Globulin Ratio Stool Occult Blood WB Flow Cytometry Blood Type O POSITIVE Antibody Screen Negative Crossmatch See Detail BBK History Checked No verified bt 06/10/17 06/11/17 06/11/17 18:34 05:00 05:30 WBC 5.0 D RBC 4.50 Hgb 10.5 L D Hct 37.2 MCV 82.7 MCH 23.3 L MCHC 28.2 L RDW 17.8 H Plt Count 207 MPV 10.3 Gran % 87.8 H Lymph % (Auto) 9.8 L [place] % (Auto) 2.4 Eos % (Auto) 0.0 L Baso % (Auto) 0.0 Gran # 4.41 Lymph # 0.5 L [place] # 0.1 Eos # 0.0 Baso # 0.00 Hemoglobin A Hemoglobin A2 Hemoglobin C Hemoglobin F () Hemoglobin S Variant Hemoglobin Hemoglobinopathy Interp Sodium Potassium Chloride Carbon Dioxide Anion Gap BUN Creatinine Est GFR ( Amer) Est GFR (Non-Af Amer) Random Glucose Calcium Phosphorus Magnesium Erythropoietin Total Bilirubin Direct Bilirubin AST ALT Alkaline Phosphatase NT-Pro-B Natriuret Pep Total Protein Albumin Globulin Albumin/Globulin Ratio Stool Occult Blood Negative WB Flow Cytometry Reference test Blood Type Antibody Screen Crossmatch BBK History Checked 06/11/17 05:30 WBC RBC Hgb Hct MCV MCH MCHC RDW Plt Count MPV Gran % Lymph % (Auto) [place] % (Auto) Eos % (Auto) Baso % (Auto) Gran # Lymph # [place] # Eos # Baso # Hemoglobin A Hemoglobin A2 Hemoglobin C Hemoglobin F () Hemoglobin S Variant Hemoglobin Hemoglobinopathy Interp Sodium 140 Potassium 4.7 Chloride 95 L Carbon Dioxide 39 H Anion Gap 12 BUN 26 H Creatinine 0.6 L Est GFR ( Amer) > 60 Est GFR (Non-Af Amer) > 60 Random Glucose 115 H Calcium 9.4 Phosphorus 2.5 Magnesium 2.3 H Erythropoietin Total Bilirubin 0.4 Direct Bilirubin 0.4 AST 31 ALT 40 Alkaline Phosphatase 52 NT-Pro-B Natriuret Pep 858 H Total Protein 6.8 Albumin 3.8 Globulin 3.0 Albumin/Globulin Ratio 1.3 Stool Occult Blood WB Flow Cytometry Blood Type Antibody Screen Crossmatch BBK History Checked EKG/Cardiology Studies: Cardiology / EKG Studies 06/11/17 07:00 EKG [ELECTROCARDIOGRAM] DAILY Comment: Reason For Exam: [id number] Critical Care Progress Note - Nutrition Nutrition: Nutrition Category Date Time Status Heart Healthy Diet [DIET] Diets 06/09/17 Lunch Ordered Assessment/Plan - Assessment and Plan (Free Text) Assessment: Patient seen and examined, on rounds with resident, agree with note with following additions/exceptions: Patient is 72yo female with PMhx of Asthma/COPD, a/w hypercapnic resp failure, requiring BIPAP. Currently awake, alert, in NAD, comfortable Off BIPAP, sat 99% on 2LNC, afebrile, HD stable. yesterday received 2u PRBC, HH improved today, responded appropriately. Taper Solumedrol, Duonebs PRN, and Rocephin and Doxycycline. Monitor HH, GI ppx, DVT ppx. Transfer to telemetry, stable.
--- NOTE | 2017-06-11 09:14 | CARD ---
APPROVED REPORT EKG Measurement Heart [id number] <Conclusion> Normal sinus rhythm Possible Left atrial enlargement Left ventricular hypertrophy with repolarization abnormality Abnormal ECG
--- NOTE | 2017-06-11 09:22 | RAD ---
HISTORY: CHF/RESP.FAILURE COMPARISON: 06/08/2017 FINDINGS: LUNGS: No active pulmonary disease. PLEURA: No significant pleural effusion identified, no pneumothorax apparent. CARDIOVASCULAR: Normal. OSSEOUS STRUCTURES: No significant abnormalities. VISUALIZED UPPER ABDOMEN: Normal. OTHER FINDINGS: None. IMPRESSION: No active disease.
[2017-06-11] MEDS: MethylPREDNISolone 40 mg Vial IVP SCH ×2 (09:41→21:44)
[2017-06-11] MEDS: Enoxaparin 40 mg Syringe SC SCH (09:41)
[2017-06-11] MEDS: POLYETHYLENE GLYCOL 3350 17 GM/Dose PACKET PO SCH ×2 (09:42→18:20)
[2017-06-11] MEDS: cefTRIAXone 1 gm 1 GM/100 ML BAG IVPB SCH (09:42)
--- NOTE | 2017-06-11 10:06 | CP.PCM.PN ---
<Alberta Harris - Last Filed: 06/11/17 11:56> Subjective - Date & Time of Evaluation Date of Evaluation: 06/11/17 Time of Evaluation: 09:57 - Subjective Subjective: Medicine note for Dr. Rodríguez. Patient seen and examined at bedside. Patient doing well with no new complaints at this time. Patient says she feels much better today and is breathing without difficulty. She denies chest pain, dizziness, palpitations, blurry vision, headaches, abdominal pain, N&V, diarrhea, constipation, LE pain, and LE swelling. Objective - Vital Signs/Intake and Output Vital Signs (last 24 hours): Temp Pulse Resp BP Pulse Ox 98.6 F 73 26 H 123/73 100 06/10/17 16:00 06/11/17 08:10 06/11/17 08:10 06/11/17 07:24 06/11/17 08:10 - Medications Medications: Current Medications Acetylcysteine (Acetylcysteine 20%) 4 ml IH [id number] [facility] Last Admin: 06/11/17 07:47 Dose: 4 ml Benzonatate (Tessalon Perles) 200 mg PO TID [facility] Last Admin: 06/11/17 09:42 Dose: 200 mg Budesonide (Pulmicort Respules) 0.5 mg IH [id number] [facility] Last Admin: 06/11/17 07:47 Dose: 0.5 mg Enoxaparin Sodium (Lovenox) 40 mg SC DAILY [facility] PRN Reason: Protocol Last Admin: 06/11/17 09:41 Dose: 40 mg Doxycycline Hyclate 100 mg/ (Sodium Chloride) 100 mls @ 100 mls/hr IVPB Q12 [facility] PRN Reason: Protocol Last Admin: 06/11/17 09:42 Dose: 100 mls/hr Ceftriaxone Sodium (Rocephin 1 Gram Ivpb) 1 gm in 100 mls @ 100 mls/hr IVPB DAILY [facility] PRN Reason: Protocol Last Admin: 06/11/17 09:42 Dose: 100 mls/hr Iron Sucrose 200 mg/ Sodium (Chloride) 110 mls @ 110 mls/hr IVPB DAILY [facility] Stop: 06/13/17 10:59 Last Admin: 06/11/17 09:54 Dose: 110 mls/hr Levalbuterol HCl (Xopenex) 0.63 mg IH [id number] [facility] Last Admin: 06/11/17 07:48 Dose: 0.63 mg Methylprednisolone (Solu-Medrol) 20 mg IVP Q12 [facility] Last Admin: 06/11/17 09:41 Dose: 20 mg Pantoprazole Sodium (Protonix Ec Tab) 40 mg PO 0600,1600 [facility] Last Admin: 06/11/17 06:03 Dose: 40 mg Polyethylene Glycol (Miralax) 17 gm PO BID [facility] Last Admin: 06/11/17 09:42 Dose: 17 gm - Labs Labs: 06/11/17 05:30 06/11/17 05:30 PT 12.6 SECONDS (9.4-12.5) H 06/08/17 02:30 INR 1.15 (0.93-1.08) H 06/08/17 02:30 APTT 31.3 Seconds (25.1-36.5) 06/08/17 02:30 - Additional Findings Additional findings: - Constitutional Appears: Non-toxic, No Acute Distress - Head Exam Head Exam: ATRAUMATIC, NORMOCEPHALIC - Eye Exam Eye Exam: EOMI, Normal appearance - ENT Exam ENT Exam: Mucous Membranes Moist, Normal Oropharynx - Respiratory Exam Respiratory Exam: Wheezes (exhalation). absent: Rales, Rhonchi - Cardiovascular Exam Cardiovascular Exam: RRR, +S1, +S2, Murmur (3/6 HEMALATHA). absent: Bradycardia, Diastolic murmur, Gallop - GI/Abdominal Exam GI & Abdominal Exam: Soft, Tenderness, Normal Bowel Sounds - Extremities Exam Extremities Exam: Normal Inspection. absent: Calf Tenderness, Pedal Edema - Neurological Exam Neurological Exam: Alert, Awake - Psychiatric Exam Psychiatric exam: Normal Affect, Normal Mood - Skin Skin Exam: Dry, Intact, Warm Assessment and Plan (1) Acute on chronic respiratory failure with hypercapnia Status: Acute (2) Diastolic heart failure Status: Acute (3) Anemia Status: Acute - Assessment and Plan (Free Text) Plan: (1) Acute on chronic respiratory failure with hypercapnia Assessment & Plan: * History of COPD, asthma, and diastolic heart failure with pulmonary HTN * improving - will transfer out of ICU today (06/11) * ABG on arrival: * pH: 7.24 * pCO2: 112 * HCO3: 48 * pO2: 73 * ABG today: * pH: 7.36 * pCO2: 89 * HCO3: (50.3) * pO2: 114 * D dimer: <200 * MRSA screen: negative * Duonebs * Solumedrol 40 mg IV Q8 * Xopenex 0.63 mg Q6 * Pulmicort 0.5 mg Q12 * Acetylcysteine 20% 4 ml Q6 * Doxy 100 mg Q12 * Ceftriaxone 1g IV QD * O2 by nasal cannula daytime, BiPAP nighttime Status: Acute (2) Diastolic heart failure Assessment & Plan: * Cardiology consulted (Dr. Parry) * Echo (01/03/17): EF 66%, LVH with normal LV function, moderately dilated LA, Mod pulm HTN (RVSP 49), mild-mod MR, mild TR * BNP: 3740, 1520, 858 * Trops negative * CK 67 * CXR: no active disease * Repeat CXR 06/11 shows no active disease Status: Acute (3) Anemia Assessment & Plan: * H&H: 8.5/33.8 * transfused 2U pRBCs (06/10/17) and H&H up to 10.5/37.2 on 06/11/17 * Heme/Onc consulted (Dr. Little) * f/u HIV panel * f/u Hep panel * GI consulted (Dr. Luna) recs appreciated * Iron: 11 (low) * TIBC: 391 * %Sat: 3 (low) * Ferritin: 5.6 * B12 >1000 * Folate: >20 * Iron sucrose 200 mg IV QD x3 days * Hemoglobinopathy studies: * HbA: 97.5 * HbA2: 1.5 (low values seen in iron deficiency and alpha thalassemia * HbC: 0 * HbF: <1 * HbS: 0 * Variant: 0 * Erythhropoietin: 40 (H) * sickle cell screen: negative * FOBT: negative Status: Acute <Garett Rodríguez U - Last Filed: 06/15/17 16:35> Objective - Vital Signs/Intake and Output Vital Signs (last 24 hours): Temp Pulse Resp BP Pulse Ox 98 F 69 20 132/81 99 06/13/17 05:56 06/13/17 05:56 06/13/17 05:56 06/13/17 05:56 06/13/17 05:56 - Labs Labs: 06/13/17 06:30 06/13/17 06:30 PT 12.6 SECONDS (9.4-12.5) H 06/08/17 02:30 INR 1.15 (0.93-1.08) H 06/08/17 02:30 APTT 31.3 Seconds (25.1-36.5) 06/08/17 02:30 Attending/Attestation - Attestation I have personally seen and examined this patient.: Yes I have fully participated in the care of the patient.: Yes I have reviewed all pertinent clinical information, including history, physical exam and plan: Yes Notes (Text): Please read/see my dictated notes.
--- NOTE | 2017-06-11 10:46 | PN ---
DATE: 06/11/2017 SUBJECTIVE: The patient is lying in bed comfortable. She is awake, alert. She denies shortness of breath. PHYSICAL EXAMINATION: VITAL SIGNS: Reveal temperature of 98.6, blood pressure 123/73. HEENT: Reveal sclerae to be white. Conjunctivae are pink. NECK: Supple. CHEST: Reveal distant breath sounds. HEART: Exam reveals regular rate and rhythm. ABDOMEN: Soft, nontender. EXTREMITIES: Show no edema. LABORATORY DATA: Reveal hemoglobin 10.5, white blood cell count 5, platelet count 207,000, BUN 26, creatinine 0.6. AST, ALT, alk phos were all normal. BNP is 858. Stool for occult blood is negative. MEDICATIONS: Include n-acetylcysteine, doxycycline 100 mg IV q. 12 h., Venofer, Lovenox, polyethylene glycol, Protonix, budesonide, ceftriaxone 1 g IV once a day, Solu-Medrol 20 mg q. 12 h., Xopenex. IMPRESSION: 1. Chronic anemia most likely anemia of chronic disease. Stool for occult blood is negative. She had an endoscopy and colonoscopy 4 months ago which was unrevealing. 2. Status post respiratory failure with pulmonary hypertension. 3. Advanced chronic obstructive pulmonary disease. 4. Chronic bronchitis. RECOMMENDATIONS: Continue current treatment. No plans for repeat endoscopy and colonoscopy at this time. Artis Luna MD
--- NOTE | 2017-06-11 13:32 | PN ---
DATE: 06/11/2017 SUBJECTIVE: The patient is in a chair. She is much more comfortable after blood transfusions. PHYSICAL EXAMINATION: VITAL SIGNS: Blood pressure is 131/78, heart rate in the 80s. NECK: Negative JVD. LUNGS: Decreased breath sounds without rales. HEART: With S1 and S2. EXTREMITIES: Without edema. LABORATORY DATA: Hemoglobin is 10.5. Chemistries, BUN and creatinine unremarkable. IMPRESSION: 1. Marked anemia. 2. Left ventricular hypertrophy. 3. Pulmonary hypertension. 4. Mitral regurgitation. 5. Hypercholesterolemia. 6. Chronic obstructive pulmonary disease. PLAN: Given these findings, the patient is much improved after blood transfusions. The patient can be transferred to a regular floor. Marcelo Parry MD
--- NOTE | 2017-06-11 16:03 | PN ---
DATE: 06/11/2017 LOCATION: The patient is seen in ICU, bed 5. SUBJECTIVE: The patient is out of bed to chair. Overnight nurses' notes were reviewed. The patient did not require BiPAP. The patient has been on nasal cannula. Last BiPAP was required on 06/08/2017. The patient stayed well on the nasal cannula. PHYSICAL EXAMINATION: VITAL SIGNS: T-max 99.1, down to 98.6; telemetry shows sinus rhythm; heart rate 73, 74 and 80; blood pressure 123/73, 130/79, 129/84, 125/71 and 125/80; respirations 26, 25, 32, 39 and 37. Blood pressure noted. O2 saturation is 99% to 100%. Intake 1925. Output 900. HEAD: Normocephalic and atraumatic. HEENT: Shows pinkish conjunctivae. Anicteric sclerae. No oropharyngeal lesion. NECK: No neck rigidity. Positive thyromegaly. CHEST: Kyphosis. LUNGS: Shows improved air entry. No crackles, rales, or wheezing. CARDIOVASCULAR: S1 and S2, regular rhythm. Questionable systolic murmur, right second intercostal space and left second intercostal space. ABDOMEN: Soft. Positive bowel sounds. GENITALIA: Female. RECTAL: Deferred. EXTREMITIES: Shows no pitting edema. No calf tenderness. No Homans sign. NEUROLOGIC: The patient is alert, awake and responsive. Follows commands. Moves upper and lower extremities without assistance. Gait examination not tested. MUSCULOSKELETAL: BMI of 24.6. DIAGNOSTIC DATA: From 06/11/2017; WBC 5.0, hemoglobin and hematocrit 10.5 and 37.2, which appears to be incorrect because hematocrit is disproportionately elevated, platelets 207, granulocytes 88% segs. Sodium 140, potassium 4.7, chloride 95, CO2 39, anion gap 12, BUN 26, creatinine 0.6, GFR greater than 60, glucose 115, calcium 9.4, phosphorus 2.5, and magnesium 2.3. LFTs are normal. BNP is down to 858 from 4020. Stool occult blood negative. Flow cytometry results pending. Microbiology; MRSA not detected. The patient received 2 units of PRBC yesterday. Chest x-ray portable was done, which shows no active disease. EKG was done today. EKG shows T-wave inversion 1, aVL, V4 and V6. The patient is seen by Hematology last night. Hematology recommendations noted. The patient is seen by Pulmonary. Case discussed with Pulmonary recommends that the patient can be transferred out of the unit. The patient was seen by bulldozer operator. The patient is seen by Gastroenterology. Recommendations noted. IMPRESSION: 1. Status post acute hypercarbic, hypoxic respiratory failure. 2. Hypercapnia with respiratory acidosis and hypoxemia. 3. Questionable paroxysmal atrial fibrillation. 4. Tachycardia. 5. Transient hypotension. 6. Tachypnea. 7. Hypoxemia. 8. Pulmonary arterial hypertension with diastolic dysfunction. 9. Normocytic anemia. 10. Leukopenia. 11. Granulocytosis. 12. Bandemia. 13. Decreased hemoglobin due to possibly iron deficiency or alpha thalassemia. 14. Hypercarbia. 15. Respiratory acidosis. 16. Hypochloremic metabolic alkalosis. 17. Prerenal kidney injury. 18. Prediabetes with hemoglobin A1c of 6.0. 19. Iron deficiency. 20. Right-sided diastolic congestive heart failure with pulmonary arterial hypertension with elevated BNP. 21. History of hypothyroidism. 22. Status post packed red blood cells transfusion x2. 23. Acute exacerbation of chronic obstructive pulmonary disease. 24. Right ventricular systolic pressure of 50 mmHg with moderately dilated left atrium and moderate mitral regurgitation and mitral annular calcification. 25. Moderate pulmonary arterial hypertension. 26. History of multinodular goiter. 27. Constipation. 1. Acute hypercarbic hypoxic respiratory failure with respiratory acidosis and hypercapnia and carbon dioxide narcosis. 2. Anemia with decreasing hemoglobin/hematocrit with leukopenia. 3. Hypotension. 4. Tachycardia. 5. Tachypnea. 6. Hypoxemia. 7. Leukopenia, anemia. 8. Gram-negative bacteremia, sepsis, septic shock, hypernatremia, acute renal failure. 9. Hypochloremic metabolic alkalosis. 10. Prerenal kidney injury. 11. Iron deficiency. 12. Right-sided diastolic congestive heart failure with pulmonary arterial hypertension with elevated right ventricular systolic pressure with elevated BNP. 13. History of hypothyroidism. 14. Bilevel positive airway pressure dependent respiratory failure. 1. Acute hypercarbic hypoxic respiratory failure, BiPAP dependent. 2. Hypercarbia. 3. Hypoxemia. 4. Systemic inflammatory response syndrome. 5. Tachycardia. 6. Questionable paroxysmal atrial fibrillation. 7. Hypotension. 8. Hypoxemia. 9. Neutropenia, anemia, granulocytosis and bandemia. 10. Respiratory acidosis with hypercarbia, CO2 narcosis and hypoxemia. 11. Acute hypercarbic hypoxic respiratory failure. 12. Hypochloremic metabolic alkalosis. 13. Hyperglycemia. 14. Iron-deficiency anemia. 15. Elevated BNP of greater than 4370. 16. Right-sided diastolic congestive heart failure with elevated right ventricular systolic pressure of 50 mmHg with concentric left ventricular hypertrophy and moderate pulmonary hypertension and tricuspid regurgitation. 17. Moderately dilated left atrium. 18. Moderate mitral regurgitation. 19. Thickened mitral valve, tricuspid valve and aortic valve. 20. Moderate pulmonary hypertension. 21. History of hypothyroidism. 22. O positive blood type. 23. Left ventricular hypertrophy with ST-T changes in anterolateral leads. 24. Sinus tachycardia. 25. Questionable paroxysmal atrial fibrillation noted on telemetry monitoring. 26. Normocytic iron-deficiency anemia. 27. Acute exacerbation of advanced chronic obstructive pulmonary disease. 28. Hypercarbia with CO2 narcosis. 29. Iron-deficiency anemia. 30. History of poor compliance. 31. History of dyslipidemia, hypothyroidism. 32. History of constipation. 33. History of hypercapnic hypercarbic ventilator-dependent respiratory failure with history of respiratory acidosis and hypercarbia, history of severe exacerbation of chronic obstructive pulmonary disease, history of CO2 narcosis, history of coronary ischemic changes with normal stress test. 34. Diastolic congestive heart failure. 1. Acute hypercarbic hypoxic respiratory failure requiring bilevel positive airway pressure. 2. Carbon dioxide narcosis. 3. Severe hypercarbia. 4. Severe respiratory acidosis with hypercarbia and carbon dioxide narcosis. 5. Severe hypoxemia. 6. Acute exacerbation of chronic obstructive pulmonary disease with hypercarbic hypoxic respiratory failure with carbon dioxide narcosis, hypoxemia, hypercarbia and respiratory acidosis. 7. Microcytic anemia, etiology unclear, but the patient has decreased hemoglobin since the previous visit. 8. Sinus tachycardia. 9. Hypochloremia metabolic alkalosis. 10. Hyperglycemia. 11. Right-sided diastolic congestive heart failure with elevated BNP of 4020. 12. History of hypothyroidism with normal thyroid profile at present. 13. Hypochloremic metabolic alkalosis. 14. Questionable cardiomegaly on chest x-ray. 15. Sinus tachycardia. 16. Hypertensive cardiovascular disease with T-wave changes in lead I, aVL, V4-V6 and left ventricular hypertrophy pattern. 17. Anemia with decreasing hemoglobin. 18. Hypercarbia with carbon dioxide narcosis. 19. Acute exacerbation of chronic obstructive pulmonary disease. 20. Moderate pulmonary hypertension with elevated right ventricular systolic pressure and tricuspid regurgitation. PLAN: At this time, the patient is seen by Gastroenterology, Hematology/Oncology, Cardiology and Pulmonary. The patient has been cleared by Pulmonary, Dr. Aguila. Case discussed with Dr. Aguila. The patient is cleared to be transferred out of ICU. Serial labs ordered. The patient is seen by Hematology. Hepatitis panel ordered. Vitamin D 25-hydroxy pending. HIV result pending. CURRENT MEDICATIONS: Xopenex nebulizer and Mucomyst nebulizer q.6 hours, doxycycline 100 mg IV q.12 hours, Venofer 200 mg IV daily for a total of 5 bags, Lovenox 40 mg subcutaneous daily, MiraLax 17 g twice a day, Protonix 40 mg twice a day, Pulmicort 0.5 mg nebulizer q.12 hours, Rocephin 1 g IV daily, Solu-Medrol decreased by ICU resident to 20 mg IV q.12 hours and Tessalon Perles 200 3 times a day. The patient has been ordered BiPAP 16/7, 30% FiO2, rate of 12. The patient has been ordered out of bed to chair. The patient will be transferred out of the ICU to telemetry in front of nursing station. The patient will be ordered physical therapy, occupational therapy, and TCU evaluation. Dictated and electronically signed, not read. Garett Rodríguez MD MIGUEL
[2017-06-11] MEDS ORDERED: Sodium Bicarbonate (8.4%) 50 Meq Syringe ONE (16:51)
[2017-06-11] MEDS ORDERED: Ergocalciferol 50,000 Intl Units Cap PO SCH (19:45)
[2017-06-12] MEDS: Levalbuterol 0.63 MG/3 ML Inhal Soln UD IH SCH ×2 (01:52→07:57)
[2017-06-12] MEDS: Acetylcysteine 20% Inhal Soln (4ml) IH SCH ×2 (01:53→07:57)
[2017-06-12] MEDS: Pantoprazole 40 mg EC Tab PO SCH ×2 (06:17→15:35)
--- NOTE | 2017-06-12 07:06 | PN ---
DATE: 06/12/2017 SUBJECTIVE: The patient appears comfortable this morning. She is not short of breath at rest. PHYSICAL EXAMINATION: VITAL SIGNS: Temperature is 98.4, pulse 77, respirations 18/20, blood pressure 143/87. Oxygen saturation on nasal cannula is 98%. HEENT: Normocephalic, atraumatic. NECK: No JVD. CARDIOVASCULAR: Positive S1, S2. No S3 gallop. LUNGS: Improved breath sounds at the bases. Minimal rhonchi. No wheezing. EXTREMITIES: Mild edema. No cyanosis, no clubbing. Calves are nontender to palpation. GASTROINTESTINAL: Abdomen is soft, nontender and nondistended. Bowel sounds are positive. SKIN: No acute rash. NEUROLOGIC: Limited at the present time. IMPRESSION: 1. Respiratory failure. 2. Advanced chronic obstructive pulmonary disease. 3. Asthma. 4. Acute bronchitis. 5. Cardiac arrhythmias. 6. Anemia. PLAN: The patient appears comfortable this morning. She is not short of breath at rest. She does state to feeling much better overall. I did discuss the case with the night nurse at length. The night nurse stated that the patient had a good night, but refused her BiPAP. I did discuss this issue with her this morning. On physical exam, the patient's bronchospasm continues to slowly resolve. In addition, the oxygen saturation on nasal cannula is now 98%-100%. I will continue with the current nebulizer treatments and low-dose intravenous steroids (decreased yesterday) for now. The patient remains on antibiotic therapy. There are no temperatures noted. There is no leukocytosis. Inputs by Cardiology and GI are noted. Clinical status of the patient is significantly improved-compared to the initial presentation. I will discuss the above with Dr. Rodríguez. Edin Aguila MD MTDBrandy
[2017-06-12] MEDS: Budesonide 0.5 mg/2 ml Inhal Susp UD IH SCH (07:57)
[2017-06-12 08:13] LABS: ALB/GLOB RATIO 1.2 (1.1-1.8); ALKALINE PHOSPHATASE 49 U/L (38-126); ALT/SGPT 42 U/L (7-56); AST/SGOT 28 U/L (14-36); BILIRUBIN,DIRECT 0.6 mg/dL (0.0-0.4); BILIRUBIN,TOTAL 0.6 mg/dL (0.2-1.3); BLOOD UREA NITROGEN 19 mg/dL (7-21); CALCIUM 9.4 mg/dL (8.4-10.5); CHLORIDE 95 mmol/L (98-107); GFR AFRICAN-AMERICAN > 60; GLUCOSE,RANDOM 82 mg/dL (70-110); MAGNESIUM 2.3 mg/dL (1.7-2.2); PHOSPHOROUS 2.9 mg/dL (2.5-4.5); POTASSIUM 4.5 mmol/L (3.6-5.0); SODIUM 138 mmol/L (132-148); TOTAL PROTEIN 6.6 g/dL (5.8-8.3)
[2017-06-12 08:27] LABS: GRAN # 3.9 (1.4-6.5); GRAN % 72.4 % (50.0-68.0); HEMATOCRIT 36.4 % (36.0-48.0); LYMPH # 1.1 (1.2-3.4); MEAN CELL VOLUME 82.2 fl (80.0-105.0); MEAN CORPUSCULAR HEMOGLOBIN 23.7 pg (25.0-35.0); MEAN CORPUSCULAR HGB CONC 28.8 g/dl (31.0-37.0); MEAN PLATELET VOLUME 11.2 fl (7.0-11.0); MONO # 0.4 (0.1-0.6); MONO % 7.6 % (1.0-6.0); RED CELL DISTRIBUTION WIDTH 18.4 % (11.5-14.5); WHITE BLOOD COUNT 5.4 10^3/ul (4.5-11.0)
[2017-06-12 08:42] LABS: CARBON DIOXIDE 42 mmol/L (21-33)
[2017-06-12] MEDS: MethylPREDNISolone 40 mg Vial IVP SCH ×2 (10:33→21:45)
[2017-06-12] MEDS: cefTRIAXone 1 gm 1 GM/100 ML BAG IVPB SCH (10:34)
[2017-06-12] MEDS: POLYETHYLENE GLYCOL 3350 17 GM/Dose PACKET PO SCH ×2 (10:34→17:32)
[2017-06-12] MEDS: Enoxaparin 40 mg Syringe SC SCH (10:34)
[2017-06-12 12:26] LABS: ALB/GLOB RATIO 1.2 (1.1-1.8); ALKALINE PHOSPHATASE 59 U/L (38-126); ALT/SGPT 49 U/L (7-56); AST/SGOT 31 U/L (14-36); BILIRUBIN,TOTAL 0.8 mg/dL (0.2-1.3); BLOOD UREA NITROGEN 19 mg/dL (7-21); CALCIUM 9.6 mg/dL (8.4-10.5); CHLORIDE 93 mmol/L (98-107); GFR AFRICAN-AMERICAN > 60; GLUCOSE,RANDOM 99 mg/dL (70-110); POTASSIUM 4.3 mmol/L (3.6-5.0); SODIUM 138 mmol/L (132-148); TOTAL PROTEIN 7.1 g/dL (5.8-8.3)
[2017-06-12 12:28] LABS: CARBON DIOXIDE 40 mmol/L (21-33)
[2017-06-12 12:32] LABS: TROPONIN I < 0.01 ng/mL
[2017-06-12] MEDS ORDERED: Levalbuterol 0.63 MG/3 ML Inhal Soln UD IH PRN (12:41)
--- NOTE | 2017-06-12 13:41 | PN ---
DATE: 06/12/2017 CARDIOLOGY FOLLOWUP SUBJECTIVE: The patient had 6 beats of asymptomatic ventricular tachycardia. The patient is not dyspneic. PHYSICAL EXAMINATION: VITAL SIGNS: Blood pressure 134/76, heart rate in the 70s. NECK: Negative JVD. LUNGS: Without rales. HEART: Reveals S1 and S2. EXTREMITIES: Without edema. LABORATORY DATA: The potassium is 4.5. The magnesium is 2.3. Hemoglobin is 10.5. IMPRESSION: 1. Asymptomatic nonsustained ventricular tachycardia. 2. Normal left ventricular function. 3. Pulmonary hypertension. 4. Marked anemia which is now improved and stable. PLAN: Given these findings, the ventricular arrhythmias maybe exacerbated by her bronchodilators. We will stop her bronchodilators since there is no respiratory distress nor any evidence of wheezing. We will discontinue her bronchodilators and use it only p.r.n. Marcelo Parry MD
--- NOTE | 2017-06-12 19:43 | CARD ---
APPROVED REPORT EKG Measurement Heart [id number] <Conclusion> Normal sinus rhythm Possible Left atrial enlargement Left ventricular hypertrophy with repolarization abnormality Abnormal ECG
--- NOTE | 2017-06-12 20:23 | PN ---
DATE: 06/12/2017 LOCATION: The patient is seen in room 372, bed 2. SUBJECTIVE: Patient is out of bed to chair. The patient is sitting up in the bed without oxygen. The patient appears to be comfortable. The patient is watching TV. The patient is alert, awake, responsive, and oriented x3. Overnight nurse's notes were reviewed. The patient declined and refused to use the BiPAP. The patient does not appear to be in any respiratory distress. The patient denies any shortness of breath or chest pain or difficulty swallowing. The patient denies any chest pain. Telemetry monitoring shows 5 beats of nonsustained ventricular tachycardia, for which the patient was asymptomatic. Cardiology reevaluation was requested. OBJECTIVE: VITAL SIGNS: The patient's vital signs for the last 24 hours and 12 hours reviewed. Patient's T-max is afebrile; heart rate 84, 92, 86, 78. Respirations 18-20. Blood pressure 138/88, 140/74. O2 sat is 95, 98. INTAKE AND OUTPUT: Not documented. HEENT: Head examination, normocephalic, atraumatic. HEENT examination shows pinkish conjunctivae. Anicteric sclerae. No oropharyngeal lesion. Positive thyromegaly. NECK: No neck rigidity. CHEST: Kyphosis. LUNGS: Shows much improved air entry. No audible rales, rhonchi or crackles. No audible wheezing. CARDIOVASCULAR: S1, S2, regular rhythm. Positive systolic murmur, right second intercostal space, left second intercostal space, left sternal border. ABDOMEN: Soft. Positive bowel sound. No epigastric/periumbilical tenderness. No right and left upper and lower quadrant tenderness. No costovertebral angle tenderness. GENITALIA: Female. RECTAL: Deferred. EXTREMITY: Shows positive ADRIANNA stockings. Negative pitting edema. MUSCULOSKELETAL: As per body mass index. NEUROLOGIC: Neurologically, the patient is alert, awake and oriented x3. Cranial nerves II-XII limited, but intact. Gait examination not tested. Musculoskeletal examination, as dictated above. DIAGNOSTICS: On 06/12/2017; WBC count is within normal limit, hemoglobin is 10.3 and hematocrit is still elevated at 36 or 37%. Platelets are within normal limit. Normal differential. CMP was repeated after the patient had 5 beats of ventricular tachycardia. The patient's potassium is above 4, sodium is 140. Chloride is slightly elevated and CO2 is still elevated. BUN shows prerenal kidney injury. Creatinine is within normal limits. Magnesium was within normal limit 2.3. The patient's BNP is 1500. Cardiac enzyme was done, stat troponin was negative 0.01. EKG was repeated again which was similar and unchanged sinus rhythm, T-wave in asymmetrical T-wave inversion in I, aVL and V4, V5 and V6 with some baseline artifact. IMPRESSION: 1. Status post acute hypoxic hypercarbic BiPAP dependent respiratory failure (resolving versus resolved). 2. Acute exacerbation of chronic obstructive pulmonary disease. 3. Nonsustained asymptomatic ventricular tachycardia. 4. Anemia. 5. Iron-deficiency anemia. 6. Status post packed red blood cell transfusion x2. 7. Status post IV Venofer treatment. 8. Acute exacerbation of chronic obstructive pulmonary disease. 9. Right-sided diastolic congestive heart failure with elevated BNP. 10. Pulmonary arterial hypertension with elevated right ventricular systolic pressure of almost 50 mmHg and tricuspid regurgitation. 11. Moderate mitral regurgitation. 12. Multinodular thyroid goiter. 13. History of hypothyroidism. 14. History of dyslipidemia. 15. History of poor compliance. 16. History of noncompliance. 17. Gait dysfunction. 18. Deconditioning. 1. Status post acute hypercarbic, hypoxic respiratory failure. 2. Hypercapnia with respiratory acidosis and hypoxemia. 3. Questionable paroxysmal atrial fibrillation. 4. Tachycardia. 5. Transient hypotension. 6. Tachypnea. 7. Hypoxemia. 8. Pulmonary arterial hypertension with diastolic dysfunction. 9. Normocytic anemia. 10. Leukopenia. 11. Granulocytosis. 12. Bandemia. 13. Decreased hemoglobin due to possibly iron deficiency or alpha thalassemia. 14. Hypercarbia. 15. Respiratory acidosis. 16. Hypochloremic metabolic alkalosis. 17. Prerenal kidney injury. 18. Prediabetes with hemoglobin A1c of 6.0. 19. Iron deficiency. 20. Right-sided diastolic congestive heart failure with pulmonary arterial hypertension with elevated BNP. 21. History of hypothyroidism. 22. Status post packed red blood cells transfusion x2. 23. Acute exacerbation of chronic obstructive pulmonary disease. 24. Right ventricular systolic pressure of 50 mmHg with moderately dilated left atrium and moderate mitral regurgitation and mitral annular calcification. 25. Moderate pulmonary arterial hypertension. 26. History of multinodular goiter. 27. Constipation. 1. Acute hypercarbic hypoxic respiratory failure with respiratory acidosis and hypercapnia and carbon dioxide narcosis. 2. Anemia with decreasing hemoglobin/hematocrit with leukopenia. 3. Hypotension. 4. Tachycardia. 5. Tachypnea. 6. Hypoxemia. 7. Leukopenia, anemia. 8. Gram-negative bacteremia, sepsis, septic shock, hypernatremia, acute renal failure. 9. Hypochloremic metabolic alkalosis. 10. Prerenal kidney injury. 11. Iron deficiency. 12. Right-sided diastolic congestive heart failure with pulmonary arterial hypertension with elevated right ventricular systolic pressure with elevated BNP. 13. History of hypothyroidism. 14. Bilevel positive airway pressure dependent respiratory failure. 1. Acute hypercarbic hypoxic respiratory failure, BiPAP dependent. 2. Hypercarbia. 3. Hypoxemia. 4. Systemic inflammatory response syndrome. 5. Tachycardia. 6. Questionable paroxysmal atrial fibrillation. 7. Hypotension. 8. Hypoxemia. 9. Neutropenia, anemia, granulocytosis and bandemia. 10. Respiratory acidosis with hypercarbia, CO2 narcosis and hypoxemia. 11. Acute hypercarbic hypoxic respiratory failure. 12. Hypochloremic metabolic alkalosis. 13. Hyperglycemia. 14. Iron-deficiency anemia. 15. Elevated BNP of greater than 4370. 16. Right-sided diastolic congestive heart failure with elevated right ventricular systolic pressure of 50 mmHg with concentric left ventricular hypertrophy and moderate pulmonary hypertension and tricuspid regurgitation. 17. Moderately dilated left atrium. 18. Moderate mitral regurgitation. 19. Thickened mitral valve, tricuspid valve and aortic valve. 20. Moderate pulmonary hypertension. 21. History of hypothyroidism. 22. O positive blood type. 23. Left ventricular hypertrophy with ST-T changes in anterolateral leads. 24. Sinus tachycardia. 25. Questionable paroxysmal atrial fibrillation noted on telemetry monitoring. 26. Normocytic iron-deficiency anemia. 27. Acute exacerbation of advanced chronic obstructive pulmonary disease. 28. Hypercarbia with CO2 narcosis. 29. Iron-deficiency anemia. 30. History of poor compliance. 31. History of dyslipidemia, hypothyroidism. 32. History of constipation. 33. History of hypercapnic hypercarbic ventilator-dependent respiratory failure with history of respiratory acidosis and hypercarbia, history of severe exacerbation of chronic obstructive pulmonary disease, history of CO2 narcosis, history of coronary ischemic changes with normal stress test. 34. Diastolic congestive heart failure. 1. Acute hypercarbic hypoxic respiratory failure requiring bilevel positive airway pressure. 2. Carbon dioxide narcosis. 3. Severe hypercarbia. 4. Severe respiratory acidosis with hypercarbia and carbon dioxide narcosis. 5. Severe hypoxemia. 6. Acute exacerbation of chronic obstructive pulmonary disease with hypercarbic hypoxic respiratory failure with carbon dioxide narcosis, hypoxemia, hypercarbia and respiratory acidosis. 7. Microcytic anemia, etiology unclear, but the patient has decreased hemoglobin since the previous visit. 8. Sinus tachycardia. 9. Hypochloremia metabolic alkalosis. 10. Hyperglycemia. 11. Right-sided diastolic congestive heart failure with elevated BNP of 4020. 12. History of hypothyroidism with normal thyroid profile at present. 13. Hypochloremic metabolic alkalosis. 14. Questionable cardiomegaly on chest x-ray. 15. Sinus tachycardia. 16. Hypertensive cardiovascular disease with T-wave changes in lead I, aVL, V4-V6 and left ventricular hypertrophy pattern. 17. Anemia with decreasing hemoglobin. 18. Hypercarbia with carbon dioxide narcosis. 19. Acute exacerbation of chronic obstructive pulmonary disease. 20. Moderate pulmonary hypertension with elevated right ventricular systolic pressure and tricuspid regurgitation. PLAN: At this time, the patient was evaluated by Cardiology, Dr. Parry, recommends to observe another 24 hours on telemetry. The patient's repeat lab work is order in the morning. At present, the patient will be continued on medications as per the MAR of today of 06/12/2017, which was reviewed and updated. The patient will be continued on the telemetry floor for another 24-hour observation as per Dr. Parry and then the patient will consider for possible transfer to TCU when the bed is available in the morning. The patient's clinical management condition and further treatment plan discussed with the patient and the patient's nurses. Dictated and electronically signed, not read. Signing off; Garett Rodríguez MD [facility]
[2017-06-13 00:55] VITALS: RESP 20
[2017-06-13 05:57] VITALS: BP 132/81; PULSE 69; TEMP 98; O2SAT 99
[2017-06-13] MEDS: Pantoprazole 40 mg EC Tab PO SCH (06:27)
[2017-06-13 06:58] LABS: EOS % 0.2 % (1.5-5.0); GRAN # 4.67 (1.4-6.5); GRAN % 73.7 % (50.0-68.0); HEMATOCRIT 39.1 % (36.0-48.0); LYMPH # 1.2 (1.2-3.4); LYMPH % 18.8 % (22.0-35.0); MEAN CELL VOLUME 81.1 fl (80.0-105.0); MEAN CORPUSCULAR HGB CONC 28.4 g/dl (31.0-37.0); MEAN PLATELET VOLUME 10.5 fl (7.0-11.0); MONO # 0.5 (0.1-0.6); MONO % 7.3 % (1.0-6.0); RED CELL DISTRIBUTION WIDTH 18.7 % (11.5-14.5); WHITE BLOOD COUNT 6.3 10^3/ul (4.5-11.0)
[2017-06-13 07:14] LABS: ALB/GLOB RATIO 1.3 (1.1-1.8); ALKALINE PHOSPHATASE 56 U/L (38-126); ALT/SGPT 42 U/L (7-56); AST/SGOT 26 U/L (14-36); BILIRUBIN,DIRECT 0.6 mg/dL (0.0-0.4); BILIRUBIN,TOTAL 0.6 mg/dL (0.2-1.3); BLOOD UREA NITROGEN 14 mg/dL (7-21); CALCIUM 9.6 mg/dL (8.4-10.5); CARBON DIOXIDE 34 mmol/L (21-33); CHLORIDE 99 mmol/L (98-107); GFR AFRICAN-AMERICAN > 60; GLUCOSE,RANDOM 87 mg/dL (70-110); MAGNESIUM 2.2 mg/dL (1.7-2.2); PHOSPHOROUS 2.5 mg/dL (2.5-4.5); POTASSIUM 4.2 mmol/L (3.6-5.0); SODIUM 138 mmol/L (132-148); TOTAL PROTEIN 6.9 g/dL (5.8-8.3)
[2017-06-13] MEDS: MethylPREDNISolone 40 mg Vial IVP SCH (09:12)
[2017-06-13] MEDS: cefTRIAXone 1 gm 1 GM/100 ML BAG IVPB SCH (09:12)
[2017-06-13] MEDS: POLYETHYLENE GLYCOL 3350 17 GM/Dose PACKET PO SCH (09:12)
[2017-06-13] MEDS: Enoxaparin 40 mg Syringe SC SCH (09:12)
--- NOTE | 2017-06-13 12:11 | PN ---
DATE: 06/13/2017 PULMONARY PROGRESS NOTE SUBJECTIVE: The patient was seen and examined at bedside. She is on oxygen. She is receiving intravenous antibiotics in the form of doxycycline and ceftriaxone. She is also on low-dose inhaling steroids as well as nebulizer treatment with levalbuterol. PHYSICAL EXAMINATION: VITAL SIGNS: As follows, temperature is 98, pulse 69, respirations 20, pulse oximetry is 99% on nasal cannula. HEENT: Examination of head, ear, nose and throat is within normal limits. NECK: Supple with no jugular vein distention. CHEST: Symmetrical. HEART: S1 and S2. No S3. Regular. LUNGS: Few scattered rhonchi and basal crackles and few expiratory wheezes as well. GASTROINTESTINAL: Soft and nontender. There is no organomegaly. EXTREMITIES: Trace pedal edema bilaterally. SKIN: Clear with no cyanosis. No skin rash. NEUROLOGIC: Limited at the present time. LABORATORY DATA: I reviewed today's blood work. Her sodium was 138, potassium 4.2, chloride 99, carbon dioxide was 34. BNP was elevated at 1117. WBC is 6.3, hemoglobin is 11.1. ASSESSMENT: 1. Status post respiratory failure. 2. Advanced chronic obstructive pulmonary disease. 3. Bronchitis asthma exacerbated. 4. Cardiac arrhythmias. PLAN: The patient appears more comfortable this morning. Her oxygen saturation is good on nasal cannula. The patient states that she refused BiPAP. Again, at this point, her pulmonary status is stable enough to allow her to spend a night on nasal cannula. We will continue with current nebulizer treatments and low-dose intravenous steroids. Remy Peacock MD
--- NOTE | 2017-06-13 12:29 | PN ---
CARDIOLOGY FOLLOWUP DATE: 06/13/2017 SUBJECTIVE: The patient is sitting in bed, asymptomatic. OBJECTIVE: VITAL SIGNS: Blood pressure 132/81, heart rate is in the 70s. Normal ventricular arrhythmias noted since we stopped the bronchodilators. NECK: Negative JVD. LUNGS: Without rales, without wheezing. HEART: Reveal S1, S2. EXTREMITIES: Without edema. LABORATORY DATA: Hemoglobin is 11.1. Chemistries, BUN and creatinine unremarkable. IMPRESSION: 1. Transient nonsustained ventricular tachycardia secondary to bronchodilators. 2. Pulmonary hypertension. 3. Anemia which is stable. PLAN: Given these findings, we will discontinue the telemetry today. From a cardiac perspective, the patient can be transferred to the TCU if necessary. Marcelo Parry MD
--- NOTE | 2017-06-13 13:55 | DS ---
HOSPITAL COURSE: The patient was seen in room 372, bed 2. The patient is lying in the bed having breakfast. The patient does not appear to be in any respiratory distress. The patient's overnight nurse's notes were reviewed. No adverse events documented. No arrhythmias noted. The patient still does not want to use BiPAP during the night. REVIEW OF SYSTEMS: A 13-system review was done, pertinent positive negative dictated above. PHYSICAL EXAMINATION: VITAL SIGNS: Vital signs in the last 24 hours, T-max 98.1, heart rates 68, 72, and 69, blood pressure 134/83 and 132/81, respirations 20, and O2 sat 94-99% on room air. HEENT: Head: Normocephalic, atraumatic. HEENT examination shows pinkish conjunctivae. Anicteric sclerae. No oropharyngeal lesion. NECK: No neck rigidity. Positive thyromegaly noted. CHEST: Kyphosis. LUNGS: Shows no crackles or rales, no wheezing, very occasional rhonchi in upper lung bauer anteriorly. CARDIOVASCULAR: S1 and S2, regular rhythm. Positive systolic murmur, right second intercostal space left sternal border, left second intercostal space. ABDOMEN: Soft. Positive bowel sounds. GENITALIA: Female. RECTAL: Deferred. EXTREMITIES: Shows no pitting edema, no calf tenderness, no Homans' sign. NEUROLOGIC: The patient is alert, awake, and responsive. He is able to move upper and lower extremity without assistance. Gait examination is deferred. MUSCULOSKELETAL: Shows body mass index of 23. Cranial nerves II-XII limited. PSYCHIATRIC: Negative for anxiety. Negative for depression. Negative for auditory or visual hallucinations. Negative for suicidal or homicidal ideation. DIAGNOSTIC STUDIES: 06/13/2017, WBC 6.3, hemoglobin and hematocrit 11.1 and 39.1, and platelets 227. Granulocytes 74% segs. Sodium 138, potassium 4.2, chloride 99, CO2 34, anion gap 9, BUN 14, creatinine 0.6, GFR greater than 60, glucose 87, calcium 9.6, phosphorus 2.5, and magnesium 2.2. LFTs are normal. BNP is 1170. FINAL IMPRESSION AND DISCHARGE DIAGNOSES: 1. Status post acute hypercarbic hypoxic BiPAP dependent respiratory failure. 2. Acute exacerbation of chronic obstructive pulmonary disease. 3. Hypertension. 4. Hypoxemia. 5. Tachycardia. 6. Transient hypotension. 7. Normocytic iron-deficiency anemia. 8. Status post packed red blood cell transfusion. 9. Status post IV Venofer transfusion. 10. Multinodular thyroid goiter. 11. Respiratory acidosis and hypercarbia and CO2 narcosis. 12. Metabolic alkalosis. 13. Acute recurrent right-sided diastolic congestive heart failure with elevated BNP. 14. Pulmonary arterial hypertension with elevated right ventricular systolic pressure. 15. Tricuspid regurgitation. 16. Moderate mitral regurgitation. 17. Hypovitaminosis D. 18. Deconditioning. 19. Gait dysfunction. 20. Constipation. 1. Status post acute hypoxic hypercarbic BiPAP dependent respiratory failure (resolving versus resolved). 2. Acute exacerbation of chronic obstructive pulmonary disease. 3. Nonsustained asymptomatic ventricular tachycardia. 4. Anemia. 5. Iron-deficiency anemia. 6. Status post packed red blood cell transfusion x2. 7. Status post IV Venofer treatment. 8. Acute exacerbation of chronic obstructive pulmonary disease. 9. Right-sided diastolic congestive heart failure with elevated BNP. 10. Pulmonary arterial hypertension with elevated right ventricular systolic pressure of almost 50 mmHg and tricuspid regurgitation. 11. Moderate mitral regurgitation. 12. Multinodular thyroid goiter. 13. History of hypothyroidism. 14. History of dyslipidemia. 15. History of poor compliance. 16. History of noncompliance. 17. Gait dysfunction. 18. Deconditioning. 1. Status post acute hypercarbic, hypoxic respiratory failure. 2. Hypercapnia with respiratory acidosis and hypoxemia. 3. Questionable paroxysmal atrial fibrillation. 4. Tachycardia. 5. Transient hypotension. 6. Tachypnea. 7. Hypoxemia. 8. Pulmonary arterial hypertension with diastolic dysfunction. 9. Normocytic anemia. 10. Leukopenia. 11. Granulocytosis. 12. Bandemia. 13. Decreased hemoglobin due to possibly iron deficiency or alpha thalassemia. 14. Hypercarbia. 15. Respiratory acidosis. 16. Hypochloremic metabolic alkalosis. 17. Prerenal kidney injury. 18. Prediabetes with hemoglobin A1c of 6.0. 19. Iron deficiency. 20. Right-sided diastolic congestive heart failure with pulmonary arterial hypertension with elevated BNP. 21. History of hypothyroidism. 22. Status post packed red blood cells transfusion x2. 23. Acute exacerbation of chronic obstructive pulmonary disease. 24. Right ventricular systolic pressure of 50 mmHg with moderately dilated left atrium and moderate mitral regurgitation and mitral annular calcification. 25. Moderate pulmonary arterial hypertension. 26. History of multinodular goiter. 27. Constipation. 1. Acute hypercarbic hypoxic respiratory failure with respiratory acidosis and hypercapnia and carbon dioxide narcosis. 2. Anemia with decreasing hemoglobin/hematocrit with leukopenia. 3. Hypotension. 4. Tachycardia. 5. Tachypnea. 6. Hypoxemia. 7. Leukopenia, anemia. 8. Gram-negative bacteremia, sepsis, septic shock, hypernatremia, acute renal failure. 9. Hypochloremic metabolic alkalosis. 10. Prerenal kidney injury. 11. Iron deficiency. 12. Right-sided diastolic congestive heart failure with pulmonary arterial hypertension with elevated right ventricular systolic pressure with elevated BNP. 13. History of hypothyroidism. 14. Bilevel positive airway pressure dependent respiratory failure. 1. Acute hypercarbic hypoxic respiratory failure, BiPAP dependent. 2. Hypercarbia. 3. Hypoxemia. 4. Systemic inflammatory response syndrome. 5. Tachycardia. 6. Questionable paroxysmal atrial fibrillation. 7. Hypotension. 8. Hypoxemia. 9. Neutropenia, anemia, granulocytosis and bandemia. 10. Respiratory acidosis with hypercarbia, CO2 narcosis and hypoxemia. 11. Acute hypercarbic hypoxic respiratory failure. 12. Hypochloremic metabolic alkalosis. 13. Hyperglycemia. 14. Iron-deficiency anemia. 15. Elevated BNP of greater than 4370. 16. Right-sided diastolic congestive heart failure with elevated right ventricular systolic pressure of 50 mmHg with concentric left ventricular hypertrophy and moderate pulmonary hypertension and tricuspid regurgitation. 17. Moderately dilated left atrium. 18. Moderate mitral regurgitation. 19. Thickened mitral valve, tricuspid valve and aortic valve. 20. Moderate pulmonary hypertension. 21. History of hypothyroidism. 22. O positive blood type. 23. Left ventricular hypertrophy with ST-T changes in anterolateral leads. 24. Sinus tachycardia. 25. Questionable paroxysmal atrial fibrillation noted on telemetry monitoring. 26. Normocytic iron-deficiency anemia. 27. Acute exacerbation of advanced chronic obstructive pulmonary disease. 28. Hypercarbia with CO2 narcosis. 29. Iron-deficiency anemia. 30. History of poor compliance. 31. History of dyslipidemia, hypothyroidism. 32. History of constipation. 33. History of hypercapnic hypercarbic ventilator-dependent respiratory failure with history of respiratory acidosis and hypercarbia, history of severe exacerbation of chronic obstructive pulmonary disease, history of CO2 narcosis, history of coronary ischemic changes with normal stress test. 34. Diastolic congestive heart failure. 1. Acute hypercarbic hypoxic respiratory failure requiring bilevel positive airway pressure. 2. Carbon dioxide narcosis. 3. Severe hypercarbia. 4. Severe respiratory acidosis with hypercarbia and carbon dioxide narcosis. 5. Severe hypoxemia. 6. Acute exacerbation of chronic obstructive pulmonary disease with hypercarbic hypoxic respiratory failure with carbon dioxide narcosis, hypoxemia, hypercarbia and respiratory acidosis. 7. Microcytic anemia, etiology unclear, but the patient has decreased hemoglobin since the previous visit. 8. Sinus tachycardia. 9. Hypochloremia metabolic alkalosis. 10. Hyperglycemia. 11. Right-sided diastolic congestive heart failure with elevated BNP of 4020. 12. History of hypothyroidism with normal thyroid profile at present. 13. Hypochloremic metabolic alkalosis. 14. Questionable cardiomegaly on chest x-ray. 15. Sinus tachycardia. 16. Hypertensive cardiovascular disease with T-wave changes in lead I, aVL, V4-V6 and left ventricular hypertrophy pattern. 17. Anemia with decreasing hemoglobin. 18. Hypercarbia with carbon dioxide narcosis. 19. Acute exacerbation of chronic obstructive pulmonary disease. 20. Moderate pulmonary hypertension with elevated right ventricular systolic pressure and tricuspid regurgitation. PLAN: At this time, the patient has been cleared by multiple subspecialties and the patient has been accepted to TCU. The patient will be discharge to Transitional Care Unit today under Dr. Rodríguez's service. DISCHARGE MEDICATIONS: 1. Diamox 250 mg twice a day. 2. Tessalon Perles 200 three times a day. 3. Rocephin 1 g IV daily. 4. Doxycycline 100 mg IV q.12 hours. 5. Lovenox 40 mg subcu daily for DVT prophylaxis. 6. Drisdol 50,000 units weekly. 7. Venofer 200 mg IV piggyback daily for total of 3-5 doses. 8. Xopenex nebulizer 0.63 mg q.6 hours p.r.n. 9. Solu-Medrol 20 mg IV q.12 hours, which will be tapered depending upon the patient's clinical condition and respiratory status. 10. Protonix 40 mg daily to take once or twice a day for GI prophylaxis. 11. MiraLax 17 g twice a day. At present, the patient is to be discharge to Transitional Care Unit. I have spoken to the patient's daughter on the phone today with the patient at bedside. The patient's daughter was updated about the patient's condition, diagnosis, test results, and recommendations by all physicians involved in the care of the patient. The patient's daughter was advised that the patient needs very close outpatient office followup, with titration of the patient's medication therapy and optimization of the patient's medical condition on an outpatient basis. All of the above was explained and discussed with the patient and the patient's daughter on the phone. All of the above was explained in layman's language. All questions concerned answered to the patient and the patient's daughter satisfaction. Time spent in the entire discharge process more than 45 minutes. Dictated and electronically signed, not read. Garett Rodríguez MD MTDD
== END 2017-06-13 14:01 | DRG 189 ==
LOC: ED 13:41 → ERH 16:35 → CCU 18:53 → 3RSO 06-11 22:50
PROVIDERS: ADMIT Internal Medicine; ATTEND Internal Medicine
PROC: 5A09357 Assistance with Respiratory Ventilation, Less than 24 Consecutive Hours, Continuous Positive Airway Pressure (ICD-10-PCS; principal; 2017-06-08)
PROC: 30233N1 Transfusion of Nonautologous Red Blood Cells into Peripheral Vein, Percutaneous Approach (ICD-10-PCS; 2017-06-10)
DX: J96.21 Acute and chronic respiratory failure with hypoxia (principal); I50.33 Acute on chronic diastolic (congestive) heart failure; J44.0 Chronic obstructive pulmonary disease with (acute) lower respiratory infection; J44.1 Chronic obstructive pulmonary disease with (acute) exacerbation; J45.901 Unspecified asthma with (acute) exacerbation; I47.2 Ventricular tachycardia; E87.4 Mixed disorder of acid-base balance; J96.22 Acute and chronic respiratory failure with hypercapnia; I27.21 Secondary pulmonary arterial hypertension; I11.0 Hypertensive heart disease with heart failure; I08.1 Rheumatic disorders of both mitral and tricuspid valves; D63.8 Anemia in other chronic diseases classified elsewhere; E03.9 Hypothyroidism, unspecified; J20.9 Acute bronchitis, unspecified; D50.9 Iron deficiency anemia, unspecified; E78.00 Pure hypercholesterolemia, unspecified; K59.00 Constipation, unspecified; E55.9 Vitamin D deficiency, unspecified; R26.9 Unspecified abnormalities of gait and mobility; E78.5 Hyperlipidemia, unspecified; E04.2 Nontoxic multinodular goiter; I48.0 Paroxysmal atrial fibrillation; R73.03 Prediabetes; Z79.82 Long term (current) use of aspirin; Z91.19 Patient's noncompliance with other medical treatment and regimen

== ENCOUNTER 2017-06-13 14:04 | Inpatient (IN) | payer OTHER, BC ==
[2017-06-13 14:48] VITALS: BMI 23.0
[2017-06-13] MEDS ORDERED: Levalbuterol 0.63 MG/3 ML Inhal Soln UD IH PRN (15:01)
[2017-06-13] MEDS: POLYETHYLENE GLYCOL 3350 17 GM/Dose PACKET PO SCH (17:03)
[2017-06-13] MEDS: Pantoprazole 40 mg EC Tab PO SCH (17:29)
[2017-06-13] MEDS: MethylPREDNISolone 40 mg Vial IV SCH (22:00)
[2017-06-14] MEDS: cefTRIAXone 1 gm 1 GM/100 ML BAG IVPB SCH (05:07)
[2017-06-14] MEDS: Enoxaparin 40 mg Syringe SC SCH ×2 (05:08→10:58)
[2017-06-14] MEDS: Pantoprazole 40 mg EC Tab PO SCH ×2 (05:08→16:48)
--- NOTE | 2017-06-14 09:03 | CP.PCM.HP ---
History of Present Illness - History of Present Illness History of Present Illness: 72 year old female with history of COPD, hypertension, anemia, and diastolic heart failure who was admitted to the [facility] with acute hypoxic respiratory failure. Patient was treated acutely on the floor and is now transferred to the [facility] for deconditioning and completion of antibiotic course. Present on Admission - Present on Admission Any Indicators Present on Admission: No Review of Systems - Constitutional Constitutional: absent: Chills, Fever, Lethargy - Cardiovascular Cardiovascular: absent: Chest Pain, Diaphoresis, Dyspnea - Respiratory Respiratory: absent: Cough, Dyspnea, Hemoptysis - Gastrointestinal Gastrointestinal: absent: Abdominal Pain, Nausea, Vomiting Past Patient History - Infectious Disease Hx of Infectious Diseases: None - Tetanus Immunizations Tetanus Immunization: Unknown - Past Social History Smoking Status: Former Smoker - CARDIAC Hx Hypertension: Yes - PULMONARY Hx Chronic Obstructive Pulmonary Disease (COPD): Yes - NEUROLOGICAL Hx Neurological Disorder: Yes (Concussion) - HEENT Hx HEENT Problems: No - RENAL Hx Chronic Kidney Disease: No - ENDOCRINE/METABOLIC Hx Hypothyroidism: Yes - HEMATOLOGICAL/ONCOLOGICAL Hx Blood Disorders: No - INTEGUMENTARY Hx Dermatological Problems: No - MUSCULOSKELETAL/RHEUMATOLOGICAL Hx Falls: Yes (past) - GASTROINTESTINAL Hx Gastrointestinal Disorders: No - GENITOURINARY/GYNECOLOGICAL Hx Genitourinary Disorders: No - PSYCHIATRIC Hx Psychophysiologic Disorder: No - SURGICAL HISTORY Hx Hysterectomy: Yes - ANESTHESIA Hx Anesthesia: Yes Hx Anesthesia Reactions: No Hx Malignant Hyperthermia: No Meds Home Medications: Home Medication List Medication Instructions Recorded Confirmed Type Aspirin 325 mg PO DAILY #30 06/20/17 Rx Benzonatate [Tessalon Perles] 200 mg PO TID #90 sgl 06/20/17 Rx Ergocalciferol [Drisdol 50,000 1 cap PO Q7D #12 cap 06/20/17 Rx Intl Units Cap] Levalbuterol [Xopenex] 0.63 mg IH [id number] #120 neb 06/20/17 Rx Levothyroxine [Synthroid] 0.05 mg PO DAILY #30 tab 06/20/17 Rx Pantoprazole [Protonix EC Tab] 40 mg PO 0600,1600 #30 ect 06/20/17 Rx Polyethylene Glycol 3350 [Miralax] 17 gm PO BID #60 packet 06/20/17 Rx predniSONE [predniSONE Tab] 30 mg PO 0800 #30 tab 06/20/17 Rx Allergies/Adverse Reactions: Allergies Allergy/AdvReac Type Severity Reaction Status Date / Time peanut Allergy ANAPHYLAXIS Verified 01/20/16 18:02 Physical Exam - Constitutional Appears: No Acute Distress - Head Exam Head Exam: ATRAUMATIC, NORMOCEPHALIC - Respiratory Exam Respiratory Exam: Rhonchi, NORMAL BREATHING PATTERN - Cardiovascular Exam Cardiovascular Exam: +S1, +S2 - GI/Abdominal Exam GI & Abdominal Exam: Normal Bowel Sounds, Soft. absent: Tenderness - Neurological Exam Neurological exam: Alert, Oriented x3 Results - Vital Signs Recent Vital Signs: Last Vital Signs Temp Pulse 82 06/13/17 14:25 Resp 18 06/13/17 14:25 BP Pulse Ox - Labs Result Diagrams: 06/18/17 06:30 06/20/17 06:30 Assessment & Plan - Assessment and Plan (Free Text) Assessment: Exacerbation of COPD HTN Anemia Diastolic heart failure Plan: continue respiratory treatments, oxygen, IV solumedrol and Bipap at night continue antibiotics continue physical therapy
--- NOTE | 2017-06-14 09:09 | PN ---
DATE: 06/14/2017 SUBJECTIVE: The patient is sitting in chair, comfortable. She denies any shortness of breath, chest pain, rectal bleeding or melena. MEDICATIONS: Her medications include Diamox, doxycycline 100 mg IV q. 12 hours, ergocalciferol, Lovenox, polyethylene glycol, pantoprazole, ceftriaxone 1 g IV daily, Solu-Medrol 20 mg IV q. 12 hours, benzonatate and levalbuterol. PHYSICAL EXAMINATION: VITAL SIGNS: Reveal heart rate of 82. No new vital signs charted. HEENT: Reveal sclerae to be white and conjunctivae are pink. NECK: Supple. CHEST: Reveal lungs to be clear. HEART: Reveals an irregular rate. ABDOMEN: Soft, nontender. EXTREMITIES: Show no edema. LABORATORY DATA: No new laboratory data are available. IMPRESSION: 1. Chronic anemia most likely secondary to anemia of chronic disease. Stool for occult blood has been negative. 2. Paroxysmal atrial fibrillation. 3. Status post respiratory failure secondary to advanced chronic obstructive pulmonary disease. 4. Pulmonary hypertension. 5. Chronic bronchitis. RECOMMENDATIONS: 1. Follow serial hematocrits. 2. Continue current treatment. Artis Luna MD
[2017-06-14] MEDS ORDERED: cefTRIAXone 1 gm 1 GM/100 ML BAG IVPB SCH (10:00)
[2017-06-14] MEDS: POLYETHYLENE GLYCOL 3350 17 GM/Dose PACKET PO SCH ×2 (10:58→17:32)
[2017-06-14] MEDS: MethylPREDNISolone 40 mg Vial IV SCH ×2 (10:58→21:25)
--- NOTE | 2017-06-14 20:22 | CON ---
CARDIOLOGY CONSULT REASON FOR CONSULTATION: Shortness of breath, hypertension, and diastolic heart failure. HISTORY OF PRESENT ILLNESS: The patient is a 72-year-old female who has a history of hypertension, chronic obstructive lung disease, diastolic heart failure, was admitted recently because of acute respiratory failure. The patient's prior echocardiograph study in 12/2016 revealed LVH with normal systolic function, [id number] MR and moderate pulmonary hypertension. A Myoview stress test done the same month revealed normal SPECT myocardial perfusion study, normal gated wall motion of the left ventricle. At this time, the patient chest pain. She does report shortness of breath. SOCIAL HISTORY: Nonsmoker. MEDICATIONS: Diamox 250 mg twice a day, doxycycline 100 mg intravenously twice a day, Lovenox 40 mg subcutaneously once a day, Protonix 40 mg p.o. twice a day, Rocephin 1 g intravenously daily, Solu-Medrol 20 mg intravenously q.12 hours, Xopenex inhaler q.6 hours p.r.n. REVIEW OF SYSTEMS: The patient denies any nausea or vomiting, fever or chills. No productive cough. PHYSICAL EXAMINATION: GENERAL: The patient is an elderly female, who does not appear to be in acute distress. VITAL SIGNS: Blood pressure 115/77, heart rate 75, temperature 98.2, and respirations 18. HEENT: Normocephalic. CHEST: Bilateral rhonchi. HEART: S1 and S2 regular. ABDOMEN: Soft. EXTREMITIES: Trace leg edema. LABORATORY DATA: The most recent hemoglobin and hematocrit yesterday were 11.1 and 39.1, white count and platelet count were within normal limit. The most recent SMA-7 yesterday was within normal limits except for glucose of 139, carbon dioxide 34, and creatinine 0.6. INR on day was 1.15. EKG 2 days ago revealed normal sinus rhythm, possible left atrial enlargement, LVH with repolarization changes. Chest x-ray on 06/11 revealed normal cardiac silhouette, prominent bronchovascular markings. ASSESSMENT: 1. Chronic obstructive lung disease. 2. Diastolic heart failure. 3. Moderate pulmonary hypertension. 4. Ievz-mc-jihtznua mitral insufficiency. RECOMMENDATIONS: Continue current Diamox 250 mg twice a day, subcutaneous Lovenox 40 mg once a day, IV Rocephin 1 g daily, and IV doxycycline 100 mg twice a day. Continue Solu-Medrol 20 mg twice a day. Consider low-dose diuretic therapy if the patient's shortness of breath dose not improve on current management. Farhad Rivera MD
[2017-06-15] MEDS: Pantoprazole 40 mg EC Tab PO SCH ×2 (05:04→17:20)
[2017-06-15] MEDS: Enoxaparin 40 mg Syringe SC SCH (05:04)
[2017-06-15] MEDS: cefTRIAXone 1 gm 1 GM/100 ML BAG IVPB SCH (05:05)
--- NOTE | 2017-06-15 08:07 | CP.PCM.PN ---
Subjective - Date & Time of Evaluation Date of Evaluation: 06/15/17 Time of Evaluation: 07:30 - Subjective Subjective: Patient seen this morning in room 315 bed 1. She is feeling better. She denies shortness of breath. Objective - Vital Signs/Intake and Output Vital Signs (last 24 hours): Temp Pulse Resp BP Pulse Ox 97.5 F L 65 16 126/73 98 06/15/17 05:53 06/15/17 05:53 06/15/17 05:53 06/15/17 05:53 06/15/17 05:53 Intake and Output: 06/15/17 06/15/17 06:59 18:59 Intake Total 360 Balance 360 - Medications Medications: Current Medications Acetazolamide (Diamox 250 Mg Tab) 250 mg PO BID [facility] Last Admin: 06/14/17 17:31 Dose: 250 mg Benzonatate (Tessalon Perles) 200 mg PO TID [facility] Last Admin: 06/14/17 17:33 Dose: 200 mg Enoxaparin Sodium (Lovenox) 40 mg SC 0600 KRISTINE PRN Reason: Protocol Last Admin: 06/15/17 05:04 Dose: 40 mg Ergocalciferol (Drisdol 50,000 Intl Units Cap) 1 cap PO Q7D [facility] Ceftriaxone Sodium (Rocephin 1 Gram Ivpb) 1 gm in 100 mls @ 100 mls/hr IVPB 0600 KRISTINE PRN Reason: Protocol Last Admin: 06/15/17 05:05 Dose: 100 mls/hr Doxycycline Hyclate 100 mg/ (Sodium Chloride) 100 mls @ 100 mls/hr IVPB 0600, 1800 KRISTINE PRN Reason: Protocol Last Admin: 06/15/17 05:05 Dose: 100 mls/hr Levalbuterol HCl (Xopenex) 0.63 mg IH [id number] PRN PRN Reason: Shortness of Breath Methylprednisolone (Solu-Medrol) 20 mg IV Q12 [facility] Last Admin: 06/14/17 21:25 Dose: 20 mg Pantoprazole Sodium (Protonix Ec Tab) 40 mg PO 0600,1600 [facility] Last Admin: 06/15/17 05:04 Dose: 40 mg Polyethylene Glycol (Miralax) 17 gm PO BID [facility] Last Admin: 06/14/17 17:32 Dose: 17 gm - Constitutional Appears: No Acute Distress - Head Exam Head Exam: ATRAUMATIC, NORMOCEPHALIC - Respiratory Exam Respiratory Exam: Clear to Ausculation Bilateral, NORMAL BREATHING PATTERN - Cardiovascular Exam Cardiovascular Exam: +S1, +S2 - GI/Abdominal Exam GI & Abdominal Exam: Soft, Normal Bowel Sounds. absent: Tenderness - Neurological Exam Neurological Exam: Alert, Awake, Oriented x3 Assessment and Plan - Assessment and Plan (Free Text) Assessment: Exacerbation of COPD Hypoxic respiratory failure HTN Anemia Diastolic heart failure Plan: Patient is feeling better. continue respiratory treatments, solumedrol, and antibiotics Patient refuses to use Bipap at night continue physical therapy
[2017-06-15] MEDS: POLYETHYLENE GLYCOL 3350 17 GM/Dose PACKET PO SCH ×2 (10:33→17:20)
[2017-06-15] MEDS: MethylPREDNISolone 40 mg Vial IV SCH ×2 (10:33→21:00)
[2017-06-15 15:12] LABS: GRAN # 8.88 (1.4-6.5); GRAN % 89.1 % (50.0-68.0); HEMATOCRIT 41.7 % (36.0-48.0); LYMPH # 0.8 (1.2-3.4); LYMPH % 7.9 % (22.0-35.0); MEAN CELL VOLUME 81.1 fl (80.0-105.0); MEAN CORPUSCULAR HEMOGLOBIN 23.7 pg (25.0-35.0); MEAN CORPUSCULAR HGB CONC 29.3 g/dl (31.0-37.0); MEAN PLATELET VOLUME 11.5 fl (7.0-11.0); MONO # 0.3 (0.1-0.6); RED CELL DISTRIBUTION WIDTH 19.8 % (11.5-14.5)
[2017-06-15 15:31] LABS: ALB/GLOB RATIO 1.3 (1.1-1.8); ALKALINE PHOSPHATASE 58 U/L (38-126); ALT/SGPT 52 U/L (7-56); AST/SGOT 30 U/L (14-36); BILIRUBIN,DIRECT 0.5 mg/dL (0.0-0.4); BILIRUBIN,TOTAL 0.5 mg/dL (0.2-1.3); BLOOD UREA NITROGEN 21 mg/dL (7-21); CALCIUM 9.7 mg/dL (8.4-10.5); CARBON DIOXIDE 30 mmol/L (21-33); CHLORIDE 103 mmol/L (98-107); GFR AFRICAN-AMERICAN > 60; GLUCOSE,RANDOM 128 mg/dL (70-110); MAGNESIUM 2.2 mg/dL (1.7-2.2); POTASSIUM 4.4 mmol/L (3.6-5.0); SODIUM 139 mmol/L (132-148); TOTAL PROTEIN 7.5 g/dL (5.8-8.3)
--- NOTE | 2017-06-15 16:11 | PN ---
SUBJECTIVE: The patient is currently undergoing physical therapy in the gym room and exercising. She denies any shortness of breath or chest pain. PHYSICAL EXAMINATION: VITAL SIGNS: Blood pressure 112/71, heart rate 73, temperature 98, respirations 20. HEENT: Normocephalic. CHEST: Minimal basal rhonchi. HEART: S1 and S2 regular. EXTREMITIES: No edema. ASSESSMENT: 1. Diastolic heart failure. 2. Chronic obstructive lung disease. 3. Mild pulmonary hypertension. 4. Ehmz-un-ydryeylp mitral insufficiency. RECOMMENDATIONS: Continue Diamox 250 mg once a day, doxycycline 100 mg intravenously twice a day, Lovenox 20 mg subcutaneously once a day, Protonix 40 mg p.o. twice a day, Rocephin 1 g intravenously daily, Solu-Medrol 20 mg intravenously q.12 hours, Xopenex inhaler q.6 hours p.r.n. Farhad Rivera MD
[2017-06-16] MEDS: cefTRIAXone 1 gm 1 GM/100 ML BAG IVPB SCH (05:31)
[2017-06-16] MEDS: Pantoprazole 40 mg EC Tab PO SCH ×2 (05:32→16:00)
[2017-06-16] MEDS: Enoxaparin 40 mg Syringe SC SCH (05:32)
[2017-06-16] MEDS ORDERED: Levalbuterol 0.63 MG/3 ML Inhal Soln UD IH PRN (06:41)
--- NOTE | 2017-06-16 08:27 | PN ---
PULMONARY PROGRESS NOTE DATE: 06/16/2017 SUBJECTIVE: The patient appears comfortable this morning. She is not short of breath at rest. PHYSICAL EXAMINATION: VITAL SIGNS: Temperature is 98.1, pulse is 70, respirations 18/20, blood pressure 106/66. Oxygen saturation on nasal cannula is 96% to 97%. HEENT: Normocephalic, atraumatic. NECK: No JVD. CARDIOVASCULAR: Positive S1, S2. No S3 gallop. LUNGS: Minimal/less bilateral rhonchi. No wheezing. EXTREMITIES: Mild edema. No cyanosis, no clubbing. Calves are nontender to palpation. GI: Abdomen is soft, nontender and nondistended. Bowel sounds are positive. SKIN: No acute rash. NEUROLOGIC: Limited at the present time. IMPRESSION: 1. Respiratory failure. 2. Advanced chronic obstructive pulmonary disease. 3. Asthma. 4. Acute bronchitis. 5. Cardiac arrhythmias. 6. Anemia. PLAN: The patient appears comfortable this morning. She is not short of breath at rest. She does state to feeling much better overall. On physical exam, her bronchospasm continues to slowly resolve. In addition, the alveolar-arterial gradient also continues to resolve. I will change the nebulizer treatments to a scheduled dosage this morning. I will also change to oral steroids this morning. The patient remains on antibiotic therapy. There are no temperatures noted. There is no leukocytosis. Clinical status of the patient is significantly improved. The patient is now on the transitional unit-where she will participate with physical therapy. I will discuss the above with Dr. Rodríguez. Edin Aguila MD MTDBrandy
[2017-06-16] MEDS: POLYETHYLENE GLYCOL 3350 17 GM/Dose PACKET PO SCH ×2 (09:31→17:26)
--- NOTE | 2017-06-16 09:36 | PN ---
DATE: 06/14/2017 PULMONARY PROGRESS NOTE SUBJECTIVE: The patient was seen and examined on Transitional Care Unit. She states she feels better. She is not in respiratory distress. PHYSICAL EXAMINATION: VITAL SIGNS: Temperature is 98, pulse 82, respirations 18, and currently she is on room air. HEENT: Examination of head, ear, nose, and throat is within normal limits. NECK: Supple with no jugular vein distention. CHEST: Symmetrical. HEART: S1 and S2. No S3. Irregular. PULMONARY: Few expiratory wheezes. Few rhonchi. No crackles. GASTROINTESTINAL: Soft, nontender. No organomegaly. EXTREMITIES: 1+ pedal edema. ASSESSMENT: 1. Exacerbation of chronic obstructive pulmonary disease. 2. Bronchial asthma. 3. Status post acute respiratory failure. PLAN: The patient was transferred to TCU. Her condition is gradually improving. We will keep on all current medication as well as aerosol therapy and recheck p.r.n. Remy Peacock MD
[2017-06-16] MEDS: Levalbuterol 0.63 MG/3 ML Inhal Soln UD IH SCH (20:13)
--- NOTE | 2017-06-17 00:13 | PN ---
DATE: 06/16/2017 The patient was seen in room 315, bed 1. SUBJECTIVE: The patient is out of bed to recliner. The patient is comfortable. The patient denies any chest pain. Denies any shortness of breath. Denies nausea, vomiting, diarrhea or constipation. Denies hemoptysis, hematemesis or melena. Denies any shortness of breath. Denies any dyspnea on exertion. Overnight, nurse's notes were reviewed. PHYSICAL EXAMINATION: VITAL SIGNS: T-max 98.3, heart rate 70-86, blood pressure 101/62, 106/67, 106/69, 114/74, respirations 16 to 20, O2 saturation 96% to 95% on room air. HEENT: Head examination, normocephalic, atraumatic. HEENT examination shows pink conjunctivae, anicteric sclerae, no oropharyngeal lesion, no neck rigidity. CHEST: Kyphosis. Positive thyromegaly. LUNGS: Shows occasional rhonchi. No wheezing. No crackles. No rales. CARDIOVASCULAR: S1 and S2. Regular rhythm. Positive systolic murmur at left sternal border, right second intercostal space, left second intercostal space. ABDOMEN: Soft, positive bowel sounds. Genitalia female. RECTAL: Deferred. EXTREMITIES: Shows no pitting edema. No calf tenderness. No Homans' sign. NEUROLOGIC: The patient is alert, awake, oriented x3. Cranial nerves II-XII intact. Gait examination not tested. MUSCULOSKELETAL: Shows a body mass index of 23. VASCULAR: Palpable pulses. DIAGNOSTICS: From 06/15/2017, WBC 10.0, hemoglobin and hematocrit 12.2 and 41.7, platelets 258. Granulocytes 81% segs. Sodium 139, potassium 4.4, chloride 103, CO2 30, anion gap 11, BUN 21, creatinine 0.7. GFR greater than 60. Glucose 128, calcium 9.7, magnesium 2.2. LFTs are normal. The patient was seen by Pulmonary this morning. Recommendations were noted. IMPRESSION: 1. Deconditioning. 2. Gait dysfunction. 3. Status post acute hypercarbic hypoxic respiratory failure with respiratory acidosis, hypercarbia and CO2 narcosis. 4. Acute exacerbation of chronic obstructive pulmonary disease. 5. Hypoxemia. 6. Tachycardia. 7. Multinodular thyroid goiter. 8. Acute recurrent right-sided diastolic congestive heart failure with elevated BNP. 9. Pulmonary arterial hypertension with elevated right ventricular systolic pressure. 10. Moderate mitral regurgitation and tricuspid regurgitation. 11. Hypovitaminosis D. 12. Steroid-induced hyperglycemia. 13. Metabolic alkalosis. 14. Respiratory acidosis. 15. Constipation. PLAN: At this time, the patient was seen by Pulmonary and Cardiology. The patient's current medications are Diamox 250 mg once a day, decreased to once a day, doxycycline 100 mg IV q. 12 hours, Drisdol 50,000 weekly, Lovenox 40 mg subcu daily, MiraLax 17 g twice a day. The patient was started on prednisone 30 mg daily by Pulmonary, Protonix 40 mg once or twice a day, Rocephin 1 g IV daily, Tessalon Perles 200 three times a day, Xopenex nebulizer 0.63 mg every 6 hours round the clock and q. 2 hours p.r.n. The patient is to be continued on TCU till completion of the stay. Dictated and electronically signed, not read. Garett Rodríguez MD
[2017-06-17] MEDS: Levalbuterol 0.63 MG/3 ML Inhal Soln UD IH SCH ×4 (02:00→19:41)
[2017-06-17] MEDS: Pantoprazole 40 mg EC Tab PO SCH ×2 (05:26→17:33)
[2017-06-17] MEDS: cefTRIAXone 1 gm 1 GM/100 ML BAG IVPB SCH (05:26)
[2017-06-17] MEDS: Enoxaparin 40 mg Syringe SC SCH (05:26)
--- NOTE | 2017-06-17 07:34 | CP.PCM.PN ---
Subjective - Date & Time of Evaluation Date of Evaluation: 06/17/17 Time of Evaluation: 07:30 - Subjective Subjective: Medicine note for Dr. Rodríguez Patient seen and examined at bedside. Patient resting comfortably in bed with no new complaints at this time. She is tolerating her diet. Patient denies fever , chills, headache, dizziness, chest pain, SOB, cough, abdominal pain, N&V, diarrhea, leg pain, and leg swelling. Objective - Vital Signs/Intake and Output Vital Signs (last 24 hours): Temp Pulse Resp BP Pulse Ox 98.3 F 76 20 101/62 95 06/16/17 16:00 06/16/17 16:00 06/16/17 16:00 06/16/17 16:00 06/16/17 16:00 Intake and Output: 06/17/17 06/17/17 06:59 18:59 Intake Total 280 Balance 280 - Medications Medications: Current Medications Acetazolamide (Diamox 250 Mg Tab) 250 mg PO DAILY [facility] Benzonatate (Tessalon Perles) 200 mg PO TID [facility] Last Admin: 06/16/17 17:26 Dose: 200 mg Enoxaparin Sodium (Lovenox) 40 mg SC 0600 KRISTINE PRN Reason: Protocol Last Admin: 06/17/17 05:26 Dose: 40 mg Ergocalciferol (Drisdol 50,000 Intl Units Cap) 1 cap PO Q7D [facility] Doxycycline Hyclate 100 mg/ (Sodium Chloride) 100 mls @ 100 mls/hr IVPB 0600, 1800 KRISTINE PRN Reason: Protocol Last Admin: 06/17/17 05:27 Dose: 100 mls/hr Ceftriaxone Sodium (Rocephin 1 Gram Ivpb (D5w)) 1 gm in 100 mls @ 100 mls/hr IVPB 0600 KRISTINE PRN Reason: Protocol Last Admin: 06/17/17 05:26 Dose: 100 mls/hr Levalbuterol HCl (Xopenex) 0.63 mg IH [id number] [facility] Last Admin: 06/17/17 02:00 Dose: 0.63 mg Levalbuterol HCl (Xopenex) 0.63 mg IH Q2 PRN PRN Reason: Shortness of Breath Pantoprazole Sodium (Protonix Ec Tab) 40 mg PO 0600,1600 [facility] Last Admin: 06/17/17 05:26 Dose: 40 mg Polyethylene Glycol (Miralax) 17 gm PO BID [facility] Last Admin: 06/16/17 17:26 Dose: 17 gm Prednisone (Prednisone Tab) 30 mg PO 0800 KRISTINE - Labs Labs: 06/15/17 15:00 06/15/17 15:00 - Constitutional Appears: Non-toxic, No Acute Distress - Head Exam Head Exam: NORMAL INSPECTION - Eye Exam Eye Exam: EOMI - ENT Exam ENT Exam: Mucous Membranes Moist - Respiratory Exam Respiratory Exam: Rales (bilateral), NORMAL BREATHING PATTERN. absent: Accessory Muscle Use, Rhonchi, Wheezes, Respiratory Distress - Cardiovascular Exam Cardiovascular Exam: RRR, +S1, +S2, Murmur (2/6 HEMALATHA). absent: Bradycardia, Tachycardia - GI/Abdominal Exam GI & Abdominal Exam: Soft, Normal Bowel Sounds. absent: Distended, Tenderness - Extremities Exam Extremities Exam: Normal Inspection - Neurological Exam Neurological Exam: Alert, Awake - Psychiatric Exam Psychiatric exam: Normal Affect, Normal Mood - Skin Skin Exam: Dry, Intact, Normal Color, Warm Assessment and Plan - Assessment and Plan (Free Text) Plan: Disposition: Patient is currently in the TCU finishing course of antibiotics and she is improving. Patient is set to go home in 4 days. Will give a dose of IV lasix today due to rales heard on lung exam. (1) Acute on chronic respiratory failure with hypercapnia - resolved Assessment & Plan: * History of COPD, asthma, and diastolic heart failure with pulmonary HTN * ABG on arrival to the ED (06/08): * pH: 7.24 * pCO2: 112 * HCO3: 48 * pO2: 73 * D dimer: <200 * MRSA screen: negative * Duonebs * Discontinued Solumedrol 40 mg IV Q8 and started on prednisone 30mg PO QD * Xopenex 0.63 mg Q6 KRISTINE and 0.63 mg Q2 PRN * Pulmicort 0.5 mg Q12 * Acetylcysteine 20% 4 ml Q6 * Doxy 100 mg Q12 * Ceftriaxone 1g IV QD * O2 by nasal cannula daytime, BiPAP nighttime Status: Acute (2) Diastolic heart failure Assessment & Plan: * Cardiology consulted (Dr. Parry) * Echo (01/03/17): EF 66%, LVH with normal LV function, moderately dilated LA, Mod pulm HTN (RVSP 49), mild-mod MR, mild TR * BNP: 3740, 1520, 858 * Trops negative * CK 67 * CXR: no active disease * Repeat CXR 06/11 shows no active disease Status: Acute (3) Anemia - resolved Assessment & Plan: * H&H: 8.5/33.8 on arrival to the ED * transfused 2U pRBCs (06/10/17) and H&H up to 10.5/37.2 on 06/11/17 * resolved as of 06/15/17 with H&H of 12.2/41.7 * Heme/Onc consulted (Dr. Little) * HIV panel negative * Hep panel negative * GI consulted (Dr. Luna) recs appreciated * Iron: 11 (low) * TIBC: 391 * %Sat: 3 (low) * Ferritin: 5.6 * B12 >1000 * Folate: >20 * Iron sucrose 200 mg IV QD x3 days * Hemoglobinopathy studies: * HbA: 97.5 * HbA2: 1.5 (low values seen in iron deficiency and alpha thalassemia * HbC: 0 * HbF: <1 * HbS: 0 * Variant: 0 * Erythhropoietin: 40 (H) * sickle cell screen: negative * FOBT: negative Status: Acute
--- NOTE | 2017-06-17 08:45 | PN ---
PULMONARY PROGRESS NOTE DATE: 06/17/2017 SUBJECTIVE: The patient appears comfortable this morning. She is not short of breath at rest. PHYSICAL EXAMINATION: VITAL SIGNS: (Last noted in the computer): Temperature is 98.3, pulse is 76, respirations 18/20, blood pressure 101/62. Oxygen saturation on nasal cannula is 95%. HEENT: Normocephalic, atraumatic. NECK: No JVD. CARDIOVASCULAR: Positive S1, S2. No S3 gallop. LUNGS: Minimal/less rhonchi. No wheezing. EXTREMITIES: Mild edema. No cyanosis, no clubbing. Calves are nontender to palpation. GI: Abdomen is soft, nontender and nondistended. Bowel sounds are positive. SKIN: No acute rash. NEUROLOGIC: Limited at the present time. IMPRESSION: 1. Respiratory failure. 2. Advanced chronic obstructive pulmonary disease. 3. Asthma. 4. Acute bronchitis. 5. Cardiac arrhythmias. 6. Anemia. PLAN: The patient appears comfortable this morning. She is not short of breath at rest. She does state to feeling much better overall. I did discuss the case with the night nurse at length. The night nurse stated that the patient had a very good night. On physical exam, her bronchospasm continues to slowly resolve. In addition, the alveolar-arterial gradient also continues to resolve. I will continue with the current nebulizer treatments and oral steroids (started yesterday) for now. The patient remains on antibiotic therapy. There are no temperatures noted. There is no leukocytosis. Clinical status of the patient is significantly improved-compared to the initial presentation. I will discuss the above with the attending physician. Edin Aguila MD MTDD
[2017-06-17] MEDS: POLYETHYLENE GLYCOL 3350 17 GM/Dose PACKET PO SCH ×2 (09:36→17:32)
--- NOTE | 2017-06-18 01:45 | PN ---
DATE: 06/17/2017 SUBJECTIVE: The patient is seen in room number 315, bed 1. The patient is out of bed to chair watching TV. Overnight nurse's notes were reviewed. The patient was seen by social service agency director yesterday. The patient's overnight nurse's notes were reviewed. The patient refused BiPAP. PHYSICAL EXAMINATION: VITAL SIGNS: T-max is 98.3, pulse is 80 to 86, blood pressure 101/62 and 100/60, respirations of 18, and O2 saturation of 95% to 99%. HEENT: Head examination shows normocephalic and atraumatic. HEENT examination shows pink conjunctivae. Anicteric sclerae. No oropharyngeal lesion. NECK: No neck rigidity. Positive thyromegaly. CHEST: Examination shows kyphosis. LUNGS: Examination shows for positive fine crepitations right sided noted. CARDIOVASCULAR: Examination shows S1 and S2, regular rhythm. Positive systolic murmur, right second intercostal space, left sternal border, left second intercostal space. GASTROINTESTINAL: Abdomen is soft. Positive bowel sound. GENITALIA: Female. RECTAL: Examination is deferred. EXTREMITIES: Shows no pitting edema, no calf tenderness, and no Homans' sign. NEUROLOGIC: The patient is alert, awake and oriented x3. Cranial nerves II through XII intact. Gait examination not tested. VASCULAR: Examination shows palpate pulses. MUSCULOSKELETAL: Examination shows a body mass index of 22. DIAGNOSTIC STUDIES: From today none. IMPRESSION AND PLAN 1. Deconditioning. 2. Gait dysfunction. 3. Status post acute hypercarbic hypoxic respiratory failure. 4. Acute recurrent right-sided diastolic congestive heart failure with elevated brain natriuretic peptide. 5. Pulmonary arterial hypertension with elevated right ventricular systolic pressure and tricuspid regurgitation. 6. Hypotension, asymptomatic. 7. Granulocytosis. 8. Hypovitaminosis D. 9. Constipation. 10. Acute exacerbation of chronic obstructive pulmonary disease. CURRENT MEDICATIONS: Diamox 250 mg p.o. daily, doxycycline 100 mg q. 12 hours,, Drisdol 50,000 weekly, Lasix 40 mg IV x1 dose, Lovenox 40 mg subcutaneously daily, MiraLax 17 g twice a day, prednisone decreased to 30 mg daily by pulmonary, Protonix 40 mg twice a day, Rocephin 1 g IV q. 12 hours., Tessalon Perles 200 three times a day, Xopenex nebulizer 0.63 mg every 6 hours [id number] and q. 2 hours. p.r.n. BiPAP procedure has been ordered 02/02, FIO2 of 30%, rate of 14. At present, the patient was seen by social service agency director. PLAN: At this time, the patient was given a dose of Lasix 40 IV because of audible crackles and crepitations on the right side of the lungs. The patient has been ordered repeat labs for the morning. Current consultation Gastroenterology Cardiology and Pulmonary. Discharge plan is home with family and Home Healthcare Services... The patient is to be continued on TCU stay till patient is stabilized until completion of the TCU stay. Dictated and electronically signed, not read. Signing off Garett Rodríguez MD Garett Rodríguez MD
[2017-06-18] MEDS: Levalbuterol 0.63 MG/3 ML Inhal Soln UD IH SCH ×4 (01:56→20:11)
[2017-06-18] MEDS: Enoxaparin 40 mg Syringe SC SCH (05:19)
[2017-06-18] MEDS: Pantoprazole 40 mg EC Tab PO SCH ×2 (05:20→16:33)
[2017-06-18] MEDS: cefTRIAXone 1 gm 1 GM/100 ML BAG IVPB SCH (05:20)
[2017-06-18 07:07] LABS: BASO # 0.01 K/mm3 (0.0-2.0); BASO % 0.1 % (0.0-3.0); EOS # 0.1 (0.0-0.7); EOS % 1.5 % (1.5-5.0); GRAN # 5.23 (1.4-6.5); GRAN % 59.5 % (50.0-68.0); HEMATOCRIT 39.1 % (36.0-48.0); LYMPH # 2.7 (1.2-3.4); LYMPH % 30.7 % (22.0-35.0); MEAN CORPUSCULAR HEMOGLOBIN 23.6 pg (25.0-35.0); MEAN CORPUSCULAR HGB CONC 29.2 g/dl (31.0-37.0); MONO # 0.7 (0.1-0.6); MONO % 8.2 % (1.0-6.0); PLATELET COUNT 213 10^3/uL (120.0-450.0); RED CELL DISTRIBUTION WIDTH 21.1 % (11.5-14.5); WHITE BLOOD COUNT 8.8 10^3/ul (4.5-11.0)
[2017-06-18 07:50] LABS: ALB/GLOB RATIO 1.3 (1.1-1.8); ALKALINE PHOSPHATASE 53 U/L (38-126); ALT/SGPT 53 U/L (7-56); AST/SGOT 29 U/L (14-36); BILIRUBIN,TOTAL 0.4 mg/dL (0.2-1.3); BLOOD UREA NITROGEN 18 mg/dL (7-21); CALCIUM 8.8 mg/dL (8.4-10.5); CARBON DIOXIDE 34 mmol/L (21-33); CHLORIDE 101 mmol/L (98-107); GFR AFRICAN-AMERICAN > 60; GLUCOSE,RANDOM 84 mg/dL (70-110); MAGNESIUM 2.1 mg/dL (1.7-2.2); POTASSIUM 3.4 mmol/L (3.6-5.0); SODIUM 141 mmol/L (132-148); TOTAL PROTEIN 6.4 g/dL (5.8-8.3)
[2017-06-18] MEDS ORDERED: Potassium Phosphate 15 MMOLE in Dextrose 5% In Water 250 ML IVPB ONE (08:13)
--- NOTE | 2017-06-18 08:36 | PN ---
PULMONARY PROGRESS NOTE SUBJECTIVE: The patient appears comfortable at rest. She is not short of breath. PHYSICAL EXAMINATION: VITAL SIGNS: (Last noted in the computer): Temperature is 97.6, pulse 80, respirations 18, blood pressure 100/60. Oxygen saturation on nasal cannula is 99%. HEENT: Normocephalic, atraumatic. NECK: No JVD. CARDIOVASCULAR: Positive S1, S2. No S3 gallop. LUNGS: Very minimal rhonchi. No wheezing. EXTREMITIES: Mild edema. No cyanosis, no clubbing. Calves are nontender to palpation. GI: Abdomen is soft, nontender and nondistended. Bowel sounds are positive. SKIN: No acute rash. NEUROLOGIC: Limited at the present time. IMPRESSION: 1. Respiratory failure. 2. Advanced chronic obstructive pulmonary disease. 3. Asthma. 4. Acute bronchitis. 5. Cardiac arrhythmias. 6. Anemia. PLAN: The patient appears comfortable this morning. She is not short of breath at rest. She does state to feeling much better overall. On physical exam, her bronchospasm continues to resolve. In addition, the alveolar-arterial gradient also continues to resolve. I will continue with the current nebulizer treatments and oral steroids (changed yesterday) for now. The patient also remains on antibiotic therapy. There are no temperatures noted. There is no leukocytosis. Clinical status of the patient is significantly improved. I will discuss the above with Dr. Rodríguez. Edin Aguila MD MTDD
[2017-06-18] MEDS: POLYETHYLENE GLYCOL 3350 17 GM/Dose PACKET PO SCH ×2 (09:59→17:46)
[2017-06-18] MEDS ORDERED: Ergocalciferol 50,000 Intl Units Cap PO SCH (10:00)
[2017-06-18] MEDS ORDERED: Sodium Chloride 0.9% 250 ML IV SCH (12:00)
[2017-06-18] MEDS ORDERED: Sodium Chloride 0.9% 250 ML IV STA (12:15)
--- NOTE | 2017-06-18 17:17 | PN ---
DATE OF SERVICE: 06/18/2017 LOCATION: The patient is seen in room #315, bed #1. SUBJECTIVE: The patient is out of bed to recliner, watching TV. The patient is concerned about her low blood pressure which was found to be low today at 84/53, 100/60. We will discontinue the Diamox today and we will give fluid challenge of 250 mL. The patient denies any chest pain, denies dizziness, denies loss of consciousness. CURRENT MEDICATIONS: Vibramycin 100 mg IV q.12, Drisdol 50,000 weekly, Lovenox 40 mg subcutaneous daily, MiraLax 17 g twice a day, K-phos rider x1. The patient is on prednisone 30 mg maintenance. The patient has been ordered Solu-Medrol 125 x1 dose, Rocephin 1 g IV daily, 0.9 normal saline 250 mL bolus, Tessalon Perles 200 three times a day, Xopenex nebulizer 0.63 mg q.6h. and q.2h. p.r.n. OBJECTIVE: VITAL SIGNS: T-max 98.3, heart rate 77, 76, 80, blood pressure 84/53, 100/60, 95/59, 101/62, 106/69, respirations 20, O2 saturation 97% on room air. HEENT: Head, normocephalic, atraumatic. HEENT examination shows pinkish pale conjunctivae. NECK: No neck rigidity. Positive thyromegaly. CHEST: Kyphosis. LUNGS: Shows occasional wheezing, posterior lung bauer. No crackles audible today which were audible yesterday. CARDIOVASCULAR: S1, S2, regular rhythm. Positive systolic murmur, left sternal border, right second intercostal space, left second intercostal space. ABDOMEN: Soft. Positive bowel sound. GENITALIA: Female. RECTAL: Deferred. EXTREMITIES: Show no pitting edema, no calf tenderness, no Homans sign. NEUROLOGIC: The patient is alert, awake, oriented x3. Cranial nerves II through XII limited. Gait examination not tested. MUSCULOSKELETAL: Shows a BMI of 20. VASCULAR: Palpable pulses. PSYCHIATRIC: Negative. DIAGNOSTIC DATA: On 06/18/2017, WBC 8.8, hemoglobin and hematocrit 11.4 and 39.1, platelet 213, sodium 141, potassium 3.4, chloride 101, CO2 34, anion gap 10, BUN 18, creatinine 0.5, GFR greater than 60, glucose 84, calcium 8.8, phosphorus 2.0. IMPRESSION: 1. Asymptomatic hypotension. 2. Questionable rebound wheezing. 3. Deconditioning. 4. Gait dysfunction. 5. Mild normocytic anemia. 6. Granulocytosis. 7. Hypokalemia. 8. Mild metabolic alkalosis. 9. Hypophosphatemia. 10. Status post acute hypercarbic hypoxic respiratory failure. 11. Acute exacerbation of chronic obstructive pulmonary disease. 12. Hypovitaminosis D. 13. Constipation. 14. Multinodular goiter. PLAN: At this time, the patient's Diamox is stopped. The patient was given a bolus of 0.9 normal saline 250 mL. The patient is ordered K-phos rider. The patient is ordered repeat labs.. The patient's current consultations are Gastroenterology, Cardiology, and Pulmonary. The patient has been ordered out of bed, ADRIANNA stockings, SCDs, physical therapy, occupational therapy. The patient is seen by Steam[employer]. The patient's discharge plan is home with family. The patient is refusing home healthcare services upon discharge. Dictated and electronically signed, not read. Garett Rodríguez MD
[2017-06-19] MEDS: Levalbuterol 0.63 MG/3 ML Inhal Soln UD IH SCH ×4 (01:10→20:45)
[2017-06-19] MEDS: Enoxaparin 40 mg Syringe SC SCH (05:03)
[2017-06-19] MEDS: cefTRIAXone 1 gm 1 GM/100 ML BAG IVPB SCH (05:03)
[2017-06-19 07:49] LABS: ALB/GLOB RATIO 1.3 (1.1-1.8); ALKALINE PHOSPHATASE 51 U/L (38-126); ALT/SGPT 44 U/L (7-56); AST/SGOT 21 U/L (14-36); BILIRUBIN,TOTAL 0.4 mg/dL (0.2-1.3); BLOOD UREA NITROGEN 13 mg/dL (7-21); CALCIUM 9.1 mg/dL (8.4-10.5); CARBON DIOXIDE 34 mmol/L (21-33); CHLORIDE 100 mmol/L (98-107); GFR AFRICAN-AMERICAN > 60; GLUCOSE,RANDOM 91 mg/dL (70-110); POTASSIUM 3.8 mmol/L (3.6-5.0); SODIUM 139 mmol/L (132-148); TOTAL PROTEIN 6.1 g/dL (5.8-8.3)
[2017-06-19] MEDS: Pantoprazole 40 mg EC Tab PO SCH ×2 (08:22→17:35)
[2017-06-19] MEDS ORDERED: Potassium Phosphate 15 MMOLE in Sodium Chloride 0.9% 250 ML IVPB ONE (08:33)
--- NOTE | 2017-06-19 09:03 | PN ---
DATE: 06/19/2017 PULMONARY NOTE SUBJECTIVE: The patient appears comfortable this morning. She is not short of breath at rest. PHYSICAL EXAMINATION: VITAL SIGNS: (Last noted in the computer): Temperature is 98.3, pulse is 78, respirations 18, blood pressure 101/67. Oxygen saturation on room air is 98%. HEENT: Normocephalic, atraumatic. NECK: No JVD. CARDIOVASCULAR: Positive S1, S2. No S3. LUNGS: Very minimal/less rhonchi. No wheezing. EXTREMITIES: Mild edema. No cyanosis, no clubbing. Calves are nontender to palpation. GI: Abdomen is soft, nontender, nondistended. Bowel sounds are positive. SKIN: No acute rash. NEUROLOGIC: Exam limited at the present time. IMPRESSION: 1. Respiratory failure. 2. Advanced chronic obstructive pulmonary disease. 3. Asthma. 4. Acute bronchitis. 5. Cardiac arrhythmias. 6. Anemia. PLAN: The patient appears comfortable this morning. She is not short of breath at rest. She does state to feeling much better overall. On physical exam, her bronchospasm continues to resolve. In addition, the oxygen saturation on room air is now 98%. I will continue the current nebulizer treatments and low-dose oral steroids for now. The patient also remains on antibiotic therapy. There are no temperatures noted. There is no leukocytosis. Clinical status of the patient is significantly improved. I will discuss the above with Dr. Rodríguez. Edin Aguila MD MTDD
[2017-06-19] MEDS: POLYETHYLENE GLYCOL 3350 17 GM/Dose PACKET PO SCH ×2 (10:25→17:35)
--- NOTE | 2017-06-19 11:30 | CP.PCM.PN ---
Subjective - Date & Time of Evaluation Date of Evaluation: 06/19/17 Time of Evaluation: 07:15 - Subjective Subjective: Medicine note for Dr. Rodríguez Patient seen and examined at bedside. Patient resting comfortably in bedside recliner with no new complaints at this time. Patient says she noticed her blood pressure looked better today and she feels more at ease about it. Dr. Rodríguez discussed home care with her and she agreed to this. She denies any acute events over night and new symptoms this morning. Objective - Vital Signs/Intake and Output Vital Signs (last 24 hours): Temp Pulse Resp BP Pulse Ox 98.5 F 90 18 94/62 L 99 06/19/17 10:47 06/19/17 10:47 06/19/17 10:47 06/19/17 10:47 06/19/17 10:47 Intake and Output: 06/19/17 06/19/17 06:59 18:59 Intake Total 280 Balance 280 - Medications Medications: Current Medications Benzonatate (Tessalon Perles) 200 mg PO TID [facility] Last Admin: 06/19/17 10:25 Dose: 200 mg Enoxaparin Sodium (Lovenox) 40 mg SC 0600 KRISTINE PRN Reason: Protocol Last Admin: 06/19/17 05:03 Dose: 40 mg Ergocalciferol (Drisdol 50,000 Intl Units Cap) 1 cap PO Q7D [facility] Last Admin: 06/18/17 09:59 Dose: 1 cap Doxycycline Hyclate 100 mg/ (Sodium Chloride) 100 mls @ 100 mls/hr IVPB 0600, 1800 KRISTINE PRN Reason: Protocol Last Admin: 06/19/17 05:03 Dose: 100 mls/hr Ceftriaxone Sodium (Rocephin 1 Gram Ivpb (D5w)) 1 gm in 100 mls @ 100 mls/hr IVPB 0600 KRISTINE PRN Reason: Protocol Last Admin: 06/19/17 05:03 Dose: 100 mls/hr Potassium Phosphate 15 mmole/ (Sodium Chloride) 255 mls @ 42.5 mls/hr IVPB ONCE ONE Stop: 06/19/17 14:32 Last Admin: 06/19/17 10:25 Dose: 42.5 mls/hr Levalbuterol HCl (Xopenex) 0.63 mg IH [id number] [facility] Last Admin: 06/19/17 07:33 Dose: 0.63 mg Levalbuterol HCl (Xopenex) 0.63 mg IH Q2 PRN PRN Reason: Shortness of Breath Pantoprazole Sodium (Protonix Ec Tab) 40 mg PO 0600,1600 [facility] Last Admin: 06/19/17 08:22 Dose: 40 mg Polyethylene Glycol (Miralax) 17 gm PO BID [facility] Last Admin: 06/19/17 10:25 Dose: 17 gm Prednisone (Prednisone Tab) 30 mg PO 0800 [facility] Last Admin: 06/19/17 08:23 Dose: 30 mg - Labs Labs: 06/18/17 06:30 06/19/17 05:30 - Constitutional Appears: Non-toxic, No Acute Distress - Head Exam Head Exam: NORMAL INSPECTION - Eye Exam Eye Exam: EOMI, Normal appearance - ENT Exam ENT Exam: Mucous Membranes Moist - Respiratory Exam Respiratory Exam: Wheezes (minimal @bases on expiration), NORMAL BREATHING PATTERN. absent: Accessory Muscle Use, Rales, Rhonchi, Respiratory Distress - Cardiovascular Exam Cardiovascular Exam: RRR, +S1, +S2 - GI/Abdominal Exam GI & Abdominal Exam: Soft, Normal Bowel Sounds. absent: Distended, Tenderness - Extremities Exam Extremities Exam: Normal Inspection - Neurological Exam Neurological Exam: Alert, Awake - Psychiatric Exam Psychiatric exam: Normal Affect - Skin Skin Exam: Dry, Intact, Normal Color, Warm Assessment and Plan - Assessment and Plan (Free Text) Assessment: (1) Hypotension Assessment & Plan: * Discontinued Diamox * BP improving Status: Acute (1) Acute on chronic respiratory failure with hypercapnia - resolved Assessment & Plan: * History of COPD, asthma, and diastolic heart failure with pulmonary HTN * ABG on arrival to the ED (06/08): * pH: 7.24 * pCO2: 112 * HCO3: 48 * pO2: 73 * D dimer: <200 * MRSA screen: negative * Duonebs * Discontinued Solumedrol 40 mg IV Q8 and started on prednisone 30mg PO QD * Xopenex 0.63 mg Q6 KRISTINE and 0.63 mg Q2 PRN * Pulmicort 0.5 mg Q12 * Acetylcysteine 20% 4 ml Q6 * Doxy 100 mg Q12 * Ceftriaxone 1g IV QD * O2 by nasal cannula daytime, BiPAP nighttime Status: Resolved (2) Diastolic heart failure Assessment & Plan: * Cardiology consulted (Dr. Parry) * Echo (01/03/17): EF 66%, LVH with normal LV function, moderately dilated LA, Mod pulm HTN (RVSP 49), mild-mod MR, mild TR * BNP: 3740, 1520, 858 * Trops negative * CK 67 * CXR: no active disease * Repeat CXR 06/11 shows no active disease Status: Chronic (3) Anemia Assessment & Plan: * H&H: 8.5/33.8 on arrival to the ED * transfused 2U pRBCs (06/10/17) and H&H up to 10.5/37.2 on 06/11/17 * resolved as of 06/15/17 with H&H of 12.2/41.7 * 06/18: 11.4 * Heme/Onc consulted (Dr. Little) * HIV panel negative * Hep panel negative * GI consulted (Dr. Luna) recs appreciated * Iron: 11 (low) * TIBC: 391 * %Sat: 3 (low) * Ferritin: 5.6 * B12 >1000 * Folate: >20 * Iron sucrose 200 mg IV QD x3 days * Hemoglobinopathy studies: * HbA: 97.5 * HbA2: 1.5 (low values seen in iron deficiency and alpha thalassemia * HbC: 0 * HbF: <1 * HbS: 0 * Variant: 0 * Erythhropoietin: 40 (H) * sickle cell screen: negative * FOBT: negative Status: Chronic
[2017-06-20] MEDS: Levalbuterol 0.63 MG/3 ML Inhal Soln UD IH SCH ×4 (01:24→20:43)
[2017-06-20] MEDS: Pantoprazole 40 mg EC Tab PO SCH ×2 (05:05→16:59)
[2017-06-20] MEDS: Enoxaparin 40 mg Syringe SC SCH (05:06)
[2017-06-20] MEDS: cefTRIAXone 1 gm 1 GM/100 ML BAG IVPB SCH (05:06)
[2017-06-20 08:26] LABS: ALB/GLOB RATIO 1.2 (1.1-1.8); ALKALINE PHOSPHATASE 42 U/L (38-126); ALT/SGPT 46 U/L (7-56); AST/SGOT 35 U/L (14-36); BILIRUBIN,TOTAL 0.5 mg/dL (0.2-1.3); BLOOD UREA NITROGEN 12 mg/dL (7-21); CALCIUM 8.7 mg/dL (8.4-10.5); CARBON DIOXIDE 38 mmol/L (21-33); CHLORIDE 98 mmol/L (98-107); GFR AFRICAN-AMERICAN > 60; GLUCOSE,RANDOM 81 mg/dL (70-110); PHOSPHOROUS 1.8 mg/dL (2.5-4.5); POTASSIUM 3.9 mmol/L (3.6-5.0); SODIUM 138 mmol/L (132-148); TOTAL PROTEIN 5.9 g/dL (5.8-8.3)
--- NOTE | 2017-06-20 08:38 | PN ---
DATE: SUBJECTIVE: The patient appears very comfortable this morning. She is not short of breath at rest. OBJECTIVE: VITAL SIGNS: Temperature is 98.3, pulse is 67, respirations are 16, blood pressure is 106/70, and oxygen saturation on nasal cannula is 97%. HEENT: Normocephalic, atraumatic. NECK: No JVD. CARDIOVASCULAR: Positive S1 and S2. No S3 gallop. LUNGS: Clear bilaterally this morning. EXTREMITIES: Mild edema. No cyanosis, no clubbing. Calves are nontender to palpation. GASTROINTESTINAL: Abdomen is soft, nontender, and nondistended. Bowel sounds are positive. SKIN: No acute rash. NEUROLOGIC: Limited at the present time. IMPRESSION: 1. Respiratory failure. 2. Advanced chronic obstructive pulmonary disease. 3. Asthma. 4. Acute bronchitis. 5. Cardiac arrhythmias. 6. Anemia. PLAN: The patient appears very comfortable this morning. She is not short of breath at rest. She does state to feeling much, much better overall. On physical exam, her lungs are now clear. In addition, there is no significant alveolar-arterial gradient. I will continue the current nebulizer treatments and decrease the oral steroids this morning. The patient remains on antibiotic therapy. There are no temperatures noted. There is no leukocytosis. Clinical status of the patient is significantly improved. I will discuss the above with Dr. Rodríguez. Edin Aguila MD MTDD
[2017-06-20] MEDS: POLYETHYLENE GLYCOL 3350 17 GM/Dose PACKET PO SCH ×2 (10:35→16:59)
[2017-06-20 16:53] VITALS: O2SAT 99
[2017-06-20] MEDS ORDERED: Potassium Phosphate 15 MMOLE in Dextrose 5% In Water 250 ML IVPB ONE (20:26)
--- NOTE | 2017-06-21 00:43 | PN ---
DATE: 06/20/2017 SUBJECTIVE: The patient is seen in room 315, bed 1. The patient is out of bed to chair. The patient is sitting up in the chair. The patient is awake, responsive. The patient does not appear to be in any distress. Overnight nurse's notes were reviewed. PHYSICAL EXAMINATION VITAL SIGNS: T-max is 98.7, heart rate 76, blood pressure 115/79, 101/66, 106/70, respirations 18, and O2 sat 97-99% on room air. DIAGNOSTIC DATA: Chemistry from today shows sodium of 138, potassium 3.9, chloride 98, CO2 38, anion gap 6, BUN 12, creatinine 0.5, GFR greater than 60, glucose 81, calcium 8.7, phosphorus is 1.8, and magnesium is 2.0. LFTs are normal. Microbiology is negative. IMPRESSION: 1. Asymptomatic hypotension. 2. Gait dysfunction. 3. Deconditioning. 4. Hypokalemia. 5. Hypophosphatemia. 6. Acute exacerbation of chronic obstructive pulmonary disease. 7. Status post acute hypercarbic hypoxic respiratory failure. 8. Anemia. 9. Status post packed red blood cells transfusion. 10. Hypovitaminosis D. 11. Constipation. PLAN: At this time, the patient is to be continued on TCU. The patient's further management will be dependent upon the patient's clinical condition, hemodynamic status and as per the patient's response to therapeutic intervention and as per the patient's diagnostic test results. The patient will be continued as above. The patient will be given a dose of K-phos today. The patient has been ordered potassium phosphate. The patient will be continued on all the above medications, which I reviewed. The patient is on Drisdol 50,000 units weekly, Lovenox 40 mg subcutaneous daily, MiraLax 17 g twice a day, K-phos IV rider ordered, prednisone decreased to 20 mg daily, Protonix 40 mg once or twice a day, Rocephin 1 gm IV daily, Tessalon Perles 200 three times a day, Xopenex nebulizer every 6 hours round the clock and q. 2 hours p.r.n. Dictated and electronically signed, not read. Signing off; Garett Rodríguez MD [facility] # [id number]
[2017-06-21] MEDS: Levalbuterol 0.63 MG/3 ML Inhal Soln UD IH SCH ×3 (01:49→13:43)
[2017-06-21] MEDS: Enoxaparin 40 mg Syringe SC SCH (05:13)
[2017-06-21] MEDS: Pantoprazole 40 mg EC Tab PO SCH (05:13)
[2017-06-21] MEDS: cefTRIAXone 1 gm 1 GM/100 ML BAG IVPB SCH (05:14)
[2017-06-21] MEDS: POLYETHYLENE GLYCOL 3350 17 GM/Dose PACKET PO SCH (09:39)
[2017-06-21 11:19] VITALS: RESP 19; TEMP 97.8
[2017-06-21 13:42] VITALS: BP 101/58; PULSE 76
--- NOTE | 2017-06-22 02:19 | DS ---
FINAL PROGRESS NOTE AND DISCHARGE SUMMARY HISTORY OF PRESENT ILLNESS: The patient is seen ambulating in room in TCU. The patient is seen in room 315, bed 1. The patient is ambulating without assistance. The patient is packing up her clothes. OBJECTIVE: VITAL SIGNS: T-max 97.8, pulse 76, blood pressure 108/58, respiration 18, and O2 sat 99%. HEENT: Head examination normocephalic and atraumatic. HEENT examination shows pink conjunctivae. Anicteric sclerae. No oropharyngeal lesion. NECK: No neck rigidity. CHEST: Kyphosis. LUNGS: Shows no crackles, rales, or wheezing. CARDIOVASCULAR: S1 and S2, regular rhythm. Positive systolic murmur, right second intercostal space left sternal border, left second intercostal space. ABDOMEN: Soft. Positive bowel sounds. GENITALIA: Female. RECTAL: Deferred. EXTREMITIES: Shows no pitting. No calf tenderness. No Homans' sign. NEUROLOGIC: The patient is alert, awake, and responsive, is ambulating independently without any assistance. Gait examination is independent. VASCULAR: Palpable pulses. Cranial nerves II-XII limited. Gait examination as discussed above. DIAGNOSTIC DATA: None. FINAL IMPRESSION, PLAN AND DISCHARGE DIAGNOSES: 1. Deconditioning. 2. Gait dysfunction. 3. Asymptomatic hypotension. 4. Hypokalemia. 5. Hypophosphatemia. 6. Normocytic anemia. 7. Granulocytosis. 8. Hypokalemia. 9. Hypophosphatemia. 10. Kyphosis. 11. Status post respiratory failure. 12. Status post hypercarbic-hypoxic respiratory failure. 13. Acute exacerbation of chronic obstructive pulmonary disease. 14. Hypovitaminosis D. 15. Constipation. 16. Chronic obstructive pulmonary disease. 17. Iron-deficiency anemia. 18. Status post packed red blood cell transfusion. PLAN: At this time, the patient has been cleared for discharge as the patient has completed the Transitional Care Unit stay. DISCHARGE MEDICATIONS: 1. Tylenol 650 q.6 hours p.r.n. 2. Aspirin 81 mg p.o. daily. 3. Tessalon Perles 200 three times a day. 4. Drisdol 50,000 units weekly. 5. Xopenex nebulizer 0.63 mg four times a day. 6. Synthroid 50 mcg daily. 7. Protonix 40 mg p.o. daily. 8. MiraLax 17 g twice a day. 9. The patient is to be resumed on her simvastatin 10 mg daily. 10. The patient is discharged on prednisone 20 mg daily. The patient is discharged home. Discharge followup with Dr. Rodríguez within one weeks. Discharge medications as per ambulatory orders and the new prescription, which has given to the patient upon discharge. Time spent in the entire discharge process more than 45 minutes. Dictated and electronically signed, not read. Garett Rodríguez MD
== END 2017-06-21 14:57 | disposition home or self-care (01) | DRG 191 ==
LOC: TRCU 14:04
PROVIDERS: ADMIT Internal Medicine; ATTEND Internal Medicine
PROC: F07Z9ZZ Gait Training/Functional Ambulation Treatment (ICD-10-PCS; principal; 2017-06-13)
PROC: F08Z4ZZ Home Management Treatment (ICD-10-PCS; 2017-06-14)
PROC: 3E0F7GC Introduction of Other Therapeutic Substance into Respiratory Tract, Via Natural or Artificial Opening (ICD-10-PCS; 2017-06-16)
DX: J44.1 Chronic obstructive pulmonary disease with (acute) exacerbation (principal); R26.9 Unspecified abnormalities of gait and mobility; Z79.2 Long term (current) use of antibiotics; E87.4 Mixed disorder of acid-base balance; I27.21 Secondary pulmonary arterial hypertension; I50.32 Chronic diastolic (congestive) heart failure; I11.0 Hypertensive heart disease with heart failure; I08.1 Rheumatic disorders of both mitral and tricuspid valves; E83.39 Other disorders of phosphorus metabolism; I48.0 Paroxysmal atrial fibrillation; J44.0 Chronic obstructive pulmonary disease with (acute) lower respiratory infection; D63.8 Anemia in other chronic diseases classified elsewhere; J20.9 Acute bronchitis, unspecified; E04.2 Nontoxic multinodular goiter; E55.9 Vitamin D deficiency, unspecified; K59.00 Constipation, unspecified; T38.0X5A Adverse effect of glucocorticoids and synthetic analogues, initial encounter; R73.9 Hyperglycemia, unspecified; E87.6 Hypokalemia; M40.209 Unspecified kyphosis, site unspecified; D50.9 Iron deficiency anemia, unspecified

== ENCOUNTER 2017-08-07 15:00 | Emergency (ER) | payer BC, MEDICARE ==
[2017-08-07 15:02] VITALS: PULSE 139; BMI 23.0
--- NOTE | 2017-08-07 16:01 | ED PDOC ---
Arrival/HPI - General Chief Complaint: Trauma Time Seen by Provider: 08/07/17 15:39 Historian: Patient - History of Present Illness Narrative History of Present Illness (Text): 08/07/17 16:00 This is a 72yo female with PMhx of hypertension, hypothyroid and Asthma who presnt to ED with complaint of lower back pain, right buttocks pain s/p truama an hour ago. Paitent states she became off balance, while going down stairs and fell back castorena. Past Medical History - Provider Review Nursing Documentation Reviewed: Yes - Infectious Disease Hx of Infectious Diseases: None - Tetanus Immunization Tetanus Immunization: Unknown - Cardiac Hx Hypertension: Yes - Pulmonary Hx Chronic Obstructive Pulmonary Disease (COPD): Yes - Neurological Hx Neurological Disorder: Yes (Concussion) - HEENT Hx HEENT Disorder: No - Renal Hx Renal Disorder: No - Endocrine/Metabolic Hx Hypothyroidism: Yes - Hematological/Oncological Hx Blood Disorders: No - Integumentary Hx Dermatological Disorder: No - Musculoskeletal/Rheumatological Hx Falls: Yes (past) - Gastrointestinal Hx Gastrointestinal Disorders: No - Genitourinary/Gynecological Hx Genitourinary Disorders: No - Psychiatric Hx Psychophysiologic Disorder: No Hx Substance Use: No - Surgical History Hx Hysterectomy: Yes - Anesthesia Hx Anesthesia: Yes Hx Anesthesia Reactions: No Hx Malignant Hyperthermia: No - Suicidal Assessment Feels Threatened In Home Enviroment: No Family/Social History - Physician Review Nursing Documentation Reviewed: Yes Family/Social History: Unknown Family HX Smoking Status: Former Smoker Hx Alcohol Use: No Hx Substance Use: No Hx Substance Use Treatment: No Allergies/Home Meds Allergies/Adverse Reactions: Allergies peanut Allergy (Verified 08/07/17 15:38) ANAPHYLAXIS Home Medications: Home Meds Medication Instructions Recorded Confirmed Simvastatin 10 mg PO DAILY 03/15/14 08/07/17 Polyethylene Glycol 3350 [Miralax] 17 gm PO PRN PRN 08/07/17 08/07/17 Review of Systems - Physician Review All systems were reviewed & negative as marked: Yes - Review of Systems Constitutional: Normal Eyes: Normal ENT: Normal Respiratory: Normal Cardiovascular: Normal Gastrointestinal: Normal Genitourinary Female: Normal Musculoskeletal: Arthralgias (Right buttocks pain), Back Pain Skin: Normal Neurological: Normal Endocrine: Normal Hemo/Lymphatic: Normal Psychiatric: Normal Physical Exam Vital Signs Reviewed: Yes Vital Signs Temp Pulse Resp BP Pulse Ox 08/07/17 18:12 97.7 F 78 16 115/86 97 08/07/17 15:33 97.9 F 98 H 20 123/75 96 Temperature: Afebrile Blood Pressure: Normal Pulse: Regular Respiratory Rate: Normal Appearance: Positive for: Well-Appearing, Non-Toxic, Comfortable Pain Distress: None Mental Status: Positive for: Alert and Oriented X 3 - Systems Exam Head: Present: Atraumatic, Normocephalic Pupils: Present: PERRL Extroacular Muscles: Present: EOMI Conjunctiva: Present: Normal Mouth: Present: Moist Mucous Membranes Neck: Present: Normal Range of Motion Respiratory/Chest: Present: Clear to Auscultation, Good Air Exchange. No: Respiratory Distress, Accessory Muscle Use Cardiovascular: Present: Regular Rate and Rhythm, Normal S1, S2. No: Murmurs Abdomen: Present: Normal Bowel Sounds. No: Tenderness, Distention, Peritoneal Signs Back: No: Midline Tenderness, Paraspinal Tenderness, Pain with Leg Raise Upper Extremity: Present: Normal Inspection. No: Cyanosis, Edema Lower Extremity: Present: Normal ROM, Neurovascularly Intact. No: Edema, Tenderness (Right buttocks/gleuteus/hip), Swelling, Deformity Neurological: Present: GCS=15, CN II-XII Intact, Speech Normal Skin: Present: Warm, Dry, Normal Color. No: Rashes Psychiatric: Present: Alert, Oriented x 3, Normal Insight, Normal Concentration Medical Decision Making ED Course and Treatment: 08/07/17 18:13 72yo female in ED for lower back/right gleutus pain s/p mechanical fall. She was not in any distress in ED. Neurological intact and ambulatory with a steady gait. She declined any analgesic in ED, stating she is not in pain. LS/Right hip/Pelvic/Saccral xray - No acute fracture Head CT - No acute derangement Result was DW the pt and she notified that if official result states otherwise, she will be notified. Advised to take Tylenol every 6hrs as needed for pain. Referred to her PMD. - RAD Interpretation Radiology Orders: 08/07/17 15:55 LS SPINE WITH OBL > 18 YRS OLD [RAD] Stat SACRUM &/or COCCYX (MIN 2VW) [RAD] Stat 08/07/17 15:56 HEAD W/O CONTRAST [CT] Stat 08/07/17 16:01 HIP MIN 2V W/ PELVIS RT [RAD] Stat Disposition/Present on Arrival - Present on Arrival Any Indicators Present on Arrival: No History of DVT/PE: No History of Uncontrolled Diabetes: No Urinary Catheter: No History of Decub. Ulcer: No History Surgical Site Infection Following: None - Disposition Have Diagnosis and Disposition been Completed?: Yes Diagnosis: Back pain Disposition: HOME/ ROUTINE Disposition Time: 18:05 Patient Plan: Discharge Condition: STABLE Discharge Instructions (ExitCare): Back Pain (ED) Additional Instructions: Follow up with your Doctor Return to ED for any new or worsening symptoms Referrals: Pbalo Krueger MD [Primary Care Provider] - Follow up with primary Forms: [employer] (Uzbek)
--- NOTE | 2017-08-07 17:51 | CT ---
PROCEDURE: CT HEAD WITHOUT CONTRAST. HISTORY: s/p trauma COMPARISON: Unenhanced head CT 03/16/2014. TECHNIQUE: Axial computed tomography images were obtained through the head/brain without intravenous contrast. Radiation dose: Total exam DLP = 806.57 mGy-cm. This CT exam was performed using one or more of the following dose reduction techniques: Automated exposure control, adjustment of the mA and/or kV according to patient size, and/or use of iterative reconstruction technique. FINDINGS: HEMORRHAGE: No intracranial hemorrhage. BRAIN: Good corticomedullary differentiation is seen. Mild increased in diffuse expansion of the ventriculosulcal and cisternal spaces is appreciated as well as white matter lucency white matter lucency compatible with further diffuse cerebral atrophy and chronic microangiopathy. No suspicious extra-axial fluid collection is identified and the midline brain anatomy appears grossly nonfocal as imaged. There is no mass effect throughout. VENTRICLES: Unremarkable. No hydrocephalus. CALVARIUM: No destructive bony lesion or displaced fracture identified including through the skullbase. PARANASAL SINUSES: Unremarkable as visualized. No significant inflammatory changes. MASTOID AIR CELLS: Unremarkable as visualized. No inflammatory changes. OTHER FINDINGS: None. IMPRESSION: No definite acute intracranial findings by standard CT criteria. Interval increase in age related neuro degenerative changes is identified in the interval.
[2017-08-07 18:13] VITALS: BP 115/86; PULSE 78; RESP 16; TEMP 97.7; O2SAT 97
--- NOTE | 2017-08-08 09:54 | RAD ---
PROCEDURE: Right Hip Radiographs. HISTORY: Right hip pain COMPARISON: None. FINDINGS: BONES: The pelvic ring is intact. There is no acute displaced fracture or bone destruction. JOINTS: There is moderate degenerative osteoarthrosis in the hip joints with reduced joint spaces and marginal spurring. There is also mild degenerative osteoarthrosis in the sacroiliac joints and mild osteitis pubis. SOFT TISSUES: Normal. OTHER FINDINGS: None. IMPRESSION: No acute displaced fracture or dislocation. Please note occult fractures cannot be excluded on plain radiographs. If there is a persistent clinical concern, an MRI of the hip may be performed for further evaluation. . Moderate degenerative osteoarthrosis in the hip joints.
--- NOTE | 2017-08-08 09:59 | RAD ---
PROCEDURE: Radiographs of the Lumbar Spine. HISTORY: back pain s/p trauma COMPARISON: No prior. FINDINGS: BONES: There is normal alignment of the lumbar vertebral bodies. There is normal lumbar lordosis. There is diffuse bone demineralization. There is no acute fracture, spondylolysis or spondylolisthesis. DISC SPACES: There is mild multilevel degenerative disc disease with anterior spurring, reduced disc heights and advanced multilevel facet arthropathy, worse at L5-S1. OTHER FINDINGS: Both sacroiliac joints are normal. IMPRESSION: No acute fracture, spondylolysis or spondylolisthesis. Multilevel degenerative disc disease, worse at L5-S1.
--- NOTE | 2017-08-08 10:00 | RAD ---
PROCEDURE: Radiographs of the Sacrum and Coccyx HISTORY: right gleuteus COMPARISON: None available. TECHNIQUE: Frontal and lateral views of the sacrum and coccyx FINDINGS: BONES: There is no acute fracture or bone destruction. Bone alignment is normal. The sacrococcygeal angulation is normal. There is diffuse bone demineralization. SACROILIAC JOINTS: There is mild degenerative osteoarthrosis in the sacroiliac joints. OTHER FINDINGS: None. IMPRESSION: No acute displaced fracture or dislocation.
== END 2017-08-07 18:33 | disposition home or self-care (01) ==
LOC: ED 15:00
DX: M54.5 Low back pain (principal); E03.9 Hypothyroidism, unspecified; I10 Essential (primary) hypertension; J44.9 Chronic obstructive pulmonary disease, unspecified

== ENCOUNTER 2017-12-16 11:55 | Inpatient (IN) | payer MEDICARE, BC ==
[2017-12-16 11:55] VITALS: PULSE 139
[2017-12-16 12:08] VITALS: BMI 22.6
[2017-12-16] MEDS: Albuterol-Ipratrop 3 mg / 0.5 (3 ml) UD IH SCH ×2 (12:40→13:30)
[2017-12-16 12:50] LABS: EOS % 0.4 % (1.5-5.0); GRAN # 3.65 (1.4-6.5); GRAN % 71.2 % (50.0-68.0); HEMOGLOBIN 11.9 g/dL (12.0-16.0); LYMPH # 1.2 (1.2-3.4); LYMPH % 22.6 % (22.0-35.0); MEAN CELL VOLUME 96.3 fl (80.0-105.0); MEAN CORPUSCULAR HEMOGLOBIN 29.5 pg (25.0-35.0); MEAN CORPUSCULAR HGB CONC 30.6 g/dl (31.0-37.0); MEAN PLATELET VOLUME 10.6 fl (7.0-11.0); MONO # 0.3 (0.1-0.6); MONO % 5.8 % (1.0-6.0); RBC 4.04 10^6/uL (3.5-6.1); RED CELL DISTRIBUTION WIDTH 14.3 % (11.5-14.5); WHITE BLOOD COUNT 5.1 10^3/ul (4.5-11.0)
[2017-12-16 13:01] LABS: ALB/GLOB RATIO 1.6 (1.1-1.8); ALBUMIN 4.3 g/dL (3.0-4.8); ALT/SGPT 102 U/L (7-56); AST/SGOT 111 U/L (14-36); BLOOD UREA NITROGEN 18 mg/dL (7-21); GFR AFRICAN-AMERICAN > 60; GFR NON-AFRICAN AMERICAN > 60
[2017-12-16 13:13] LABS: B-TYPE NATRIURETIC PEPTIDE 5130 pg/mL (0-450); TROPONIN I 0.03 ng/mL
--- NOTE | 2017-12-16 13:13 | ED PDOC ---
Arrival/HPI - General Chief Complaint: Shortness Of Breath Time Seen by Provider: 12/16/17 12:13 Historian: Patient - Critical Care Critical Care Minutes: 45 minutes Critical Care Time: Excluding Proc Time - History of Present Illness Narrative History of Present Illness (Text): 12/16/17 13:06 72 year old, whose past medical history of COPD, asthma, pulmonary htn, diastolic chf, who presents to the emergency department complaining of shortness of breath, nonproductive cough, and general fatigue. Patient denies any fever, chills, chest pain, shortness of breath, nausea, vomiting, diarrhea, or any other complaints. 12/16/17 14:02 Time/Duration: Prior to Arrival Symptom Onset: Gradual Activities at Onset: Light Context: Home Past Medical History - Provider Review Nursing Documentation Reviewed: Yes - Infectious Disease Hx of Infectious Diseases: None - Tetanus Immunization Tetanus Immunization: Unknown - Cardiac Hx Hypertension: Yes - Pulmonary Hx Asthma: Yes Hx Chronic Obstructive Pulmonary Disease (COPD): Yes - Neurological Hx Neurological Disorder: Yes (Concussion) - HEENT Hx HEENT Disorder: No - Renal Hx Renal Disorder: No - Endocrine/Metabolic Hx Hypothyroidism: Yes - Hematological/Oncological Hx Blood Disorders: No - Integumentary Hx Dermatological Disorder: No - Musculoskeletal/Rheumatological Hx Falls: Yes (past) - Gastrointestinal Hx Gastrointestinal Disorders: Yes Hx Gastroesophageal Reflux: Yes - Genitourinary/Gynecological Hx Genitourinary Disorders: No - Psychiatric Hx Psychophysiologic Disorder: No Hx Substance Use: No - Surgical History Hx Hysterectomy: Yes - Anesthesia Hx Anesthesia: Yes Hx Anesthesia Reactions: No Hx Malignant Hyperthermia: No - Suicidal Assessment Feels Threatened In Home Enviroment: No Family/Social History - Physician Review Nursing Documentation Reviewed: Yes Family/Social History: Unknown Family HX Smoking Status: Former Smoker Hx Alcohol Use: No Hx Substance Use: No Hx Substance Use Treatment: No Allergies/Home Meds Allergies/Adverse Reactions: Allergies peanut Allergy (Verified 12/16/17 12:25) ANAPHYLAXIS Home Medications: Home Meds Medication Instructions Recorded Confirmed Simvastatin 10 mg PO DAILY 03/15/14 08/07/17 Polyethylene Glycol 3350 [Miralax] 17 gm PO PRN PRN 08/07/17 08/07/17 Review of Systems - Physician Review All systems were reviewed & negative as marked: Yes - Review of Systems Constitutional: Fatigue Eyes: Normal ENT: Normal Respiratory: SOB, Cough Cardiovascular: Normal. absent: Chest Pain Gastrointestinal: Normal. absent: Abdominal Pain, Diarrhea, Vomiting Genitourinary Female: Normal Musculoskeletal: Normal. absent: Back Pain, Neck Pain Skin: Normal. absent: Rash Neurological: Normal. absent: Headache, Dizziness Endocrine: Normal Hemo/Lymphatic: Normal Psychiatric: Normal Physical Exam Vital Signs Reviewed: Yes Vital Signs Temp Pulse Resp BP Pulse Ox 12/16/17 16:03 78 28 H 98/65 L 100 12/16/17 15:57 88 22 157/98 H 100 12/16/17 14:30 91 H 30 H 114/79 96 12/16/17 13:57 93 H 30 H 130/89 94 L 12/16/17 13:38 129/69 12/16/17 12:43 20 96 12/16/17 12:08 98.4 F 98 H 19 112/86 96 Temperature: Afebrile Blood Pressure: Normal Pulse: Regular Respiratory Rate: Normal Appearance: Positive for: Well-Appearing, Non-Toxic, Comfortable Pain Distress: None Mental Status: Positive for: Alert and Oriented X 3 - Systems Exam Head: Present: Atraumatic, Normocephalic Pupils: Present: PERRL Extroacular Muscles: Present: EOMI Conjunctiva: Present: Normal Mouth: Present: Moist Mucous Membranes Neck: Present: Normal Range of Motion. No: Meningeal Signs, MIDLINE TENDERNESS , Paraspinal Tenderness Respiratory/Chest: Present: Decreased Breath Sounds. No: Respiratory Distress, Accessory Muscle Use, Wheezes Cardiovascular: Present: Regular Rate and Rhythm, Normal S1, S2. No: Murmurs Abdomen: No: Tenderness, Distention, Peritoneal Signs Back: Present: Normal Inspection. No: CVA Tenderness, Midline Tenderness, Paraspinal Tenderness Upper Extremity: Present: Normal Inspection. No: Cyanosis, Edema Lower Extremity: Present: Normal Inspection. No: Edema Neurological: Present: GCS=15, CN II-XII Intact, Speech Normal Skin: Present: Warm, Dry, Normal Color. No: Rashes Psychiatric: Present: Alert, Oriented x 3, Normal Insight, Normal Concentration Medical Decision Making ED Course and Treatment: 12/16/17 13:14 Impression: 72 year old female presents to the emergency department complaining of shortness of breath, nonproductive cough, and general fatigue. Plan: -- duonebs, steroids -- lasix -- Chest X-ray -- Labs -- Reassess and disposition Progress Notes: 12/16/17 13:25 EKG shows sinus tachycardia at 105bpm wtih T wave inversions V4-v6, unchanged from prior on July 2016 12/16/17 13:26 12/16/17 13:59 Cxray negative. BNP elevated. Trop negative. 12/16/17 14:02 Pco2 elevated. Bipap started. 12/16/17 15:06 Son at beside and is refusing intubation. Son called his siblings and is aware of mother's critical nature ICU Dr. Rodriguez at bedside and family now consenting to intubation PROCEDURE: INTUBATION Performed by the emergency provider Time: 1559 Consent: Discussion of the risks, benefits, and alternatives to the procedure with family (sons) was discussed and they consented to proecdure. Timeout: A timeout to verify the correct patient, procedure, and site was performed. Indication: hypercapnia Pre-oxygenation: bipap, [id number] Medications: . See MAR for details. ETT Size: 7.5 Confirmation: Cords directly visualized as tube passed, good bilateral breath sounds, positive CO2 detector color change, tube fogging, adequate chest rise, improving pulse oximetry reading, improved skin color, and absence of gastric sounds,. ETT Secured: The cuff was inflated and the tube was secured appropriately at a distance of 21cm at the lip. Post-Procedure: There were no immediate complications. CXR Confirmation: yes 12/16/17 16:36 12/16/17 16:38 - Lab Interpretations Lab Results: 12/16/17 12:30 12/16/17 12:30 Lab Results 12/16/17 13:41: pCO2 104 H*, pO2 68.0 L, HCO3 37.1 H, ABG pH 7.16 L*, ABG Total CO2 40.3 H, ABG O2 Saturation 94.5 L, ABG O2 Content 14.4 L, ABG Base Excess 5.6 H, ABG Hemoglobin 11.2 L, ABG Carboxyhemoglobin 2.4 H, POC ABG HHb (Measured ) 5.3 H, ABG Methemoglobin 0.9, ABG O2 Capacity 15.2 L, Hgb O2 Saturation 91.4 L , FiO2 28.0 12/16/17 12:30: Sodium 140, Potassium 4.3, Chloride 96 L, Carbon Dioxide 38 H, Anion Gap 11, BUN 18, Creatinine 0.5 L, Est GFR ( Amer) > 60, Est GFR ( Non-Af Amer) > 60, Random Glucose 151 H, Calcium 9.0, Total Bilirubin 0.3, AST 111 H D, ALT 102 H, Alkaline Phosphatase 76, Troponin I 0.03 D, NT-Pro-B Natriuret Pep 5130 H, Total Protein 7.1, Albumin 4.3, Globulin 2.8, Albumin/ Globulin Ratio 1.6 12/16/17 12:30: PT 12.2, INR 1.06, APTT 32.1, D-Dimer, Quantitative < 200 12/16/17 12:30: WBC 5.1 D, RBC 4.04, Hgb 11.9 L, Hct 38.9, MCV 96.3 D, MCH 29.5, MCHC 30.6 L, RDW 14.3, Plt Count 166, MPV 10.6, Gran % 71.2 H, Lymph % ( Auto) 22.6, [place] % (Auto) 5.8, Eos % (Auto) 0.4 L, Baso % (Auto) 0.0, Gran # 3.65, Lymph # (Auto) 1.2, [place] # (Auto) 0.3, Eos # (Auto) 0.0, Baso # (Auto) 0.00 - RAD Interpretation Radiology Orders: 12/16/17 13:17 CHEST PORTABLE [RAD] Stat - Medication Orders Current Medication Orders: Enoxaparin Sodium (Lovenox) 30 mg SC DAILY KRISTINE PRN Reason: Protocol Ceftriaxone Sodium (Rocephin 1 Gram Ivpb) 1 gm in 100 mls @ 100 mls/hr IVPB DAILY KRISTINE PRN Reason: Protocol Last Admin: 12/16/17 16:29 Dose: 100 mls/hr eMAR Start Stop Document 12/16/17 16:29 [email or web address] (Rec: 12/16/17 16:29 [email or web address] [id number]) Intravenous Solution Start Date 12/16/17 Start Time 16:29 End Date 12/16/17 Azithromycin (Zithromax 500mg In Ns) 500 mg in 250 mls @ 167 mls/hr IVPB DAILY KRISTINE PRN Reason: Protocol Fentanyl Citrate (Fentanyl Citrate/Sodium Chloride 1 Mg/100 Ml) 1,000 mcg in 100 mls @ 2 mls/hr IV .Q24H PRN; Protocol; 20 MCG/HR PRN Reason: TITRATE PER MD ORDER Midazolam 100 mg/100ml in NS (Midazolam 100 Mg/100ml In Ns) 100 mg in 100 mls @ 1 mls/hr IV .Q24H PRN; Protocol; 1 MG/HR PRN Reason: Sedation Levalbuterol HCl (Xopenex) 0.63 mg IH Q2 PRN PRN Reason: Shortness of Breath Levalbuterol HCl (Xopenex) 0.63 mg IH Q4H KRISTINE Methylprednisolone (Solu-Medrol) 40 mg IVP Q8H KRISTINE Pantoprazole Sodium (Protonix Inj) 40 mg IVP BID KRISTINE Discontinued Medications Albuterol/Ipratropium (Duoneb 3 Mg/0.5 Mg (3 Ml) Ud) 3 ml IH Q15M KRISTINE Stop: 12/16/17 13:01 Last Admin: 12/16/17 13:30 Dose: Not Given Non-Admin Reason: Patient Refused Albuterol/Ipratropium (Duoneb 3 Mg/0.5 Mg (3 Ml) Ud) 3 ml IH STAT STA Stop: 12/16/17 14:49 Last Admin: 12/16/17 16:05 Dose: 3 ml Etomidate (Amidate) 30 mg IVP STAT STA Stop: 12/16/17 16:07 Furosemide (Lasix) 40 mg IVP STAT STA Stop: 12/16/17 13:18 Last Admin: 12/16/17 13:38 Dose: 40 mg MAR Blood Pressure Document 12/16/17 13:38 [email or web address] (Rec: 12/16/17 13:38 [email or web address] [id number]) Blood Pressure Blood Pressure (100/60-150/90) 129/69 IVP Administration Document 12/16/17 13:38 [email or web address] (Rec: 12/16/17 13:38 [email or web address] [id number]) Charges for Administration # of IVP Administrations 1 Methylprednisolone (Solu-Medrol) 125 mg IVP STAT STA Stop: 12/16/17 13:20 Last Admin: 12/16/17 13:39 Dose: 125 mg IVP Administration Document 12/16/17 13:39 [email or web address] (Rec: 12/16/17 13:39 [facility] [id number]) Charges for Administration # of IVP Administrations 1 Midazolam HCl (Versed Inj) 2 mg IVP STAT STA Stop: 12/16/17 16:03 Last Admin: 12/16/17 16:06 Dose: 2 mg IVP Administration Document 12/16/17 16:06 [email or web address] (Rec: 12/16/17 16:06 [facility] [id number]) Charges for Administration # of IVP Administrations 1 Midazolam HCl (Versed Inj) 5 mg IVP STAT STA Stop: 12/16/17 16:17 Pantoprazole Sodium (Protonix Inj) 40 mg IVP DAILY KRISTINE Succinylcholine Chloride (Quelicin) 100 mg IV STAT STA Stop: 12/16/17 16:07 - Scribe Statement The provider has reviewed the documentation as recorded by the Scribchristopher Nina All medical record entries made by the Scribchristopher were at my direction and personally dictated by me. I have reviewed the chart and agree that the record accurately reflects my personal performance of the history, physical exam, medical decision making, and the department course for this patient. I have also personally directed, reviewed, and agree with the discharge instructions and disposition. Disposition/Present on Arrival - Present on Arrival Any Indicators Present on Arrival: No History of DVT/PE: No History of Uncontrolled Diabetes: No Urinary Catheter: No History of Decub. Ulcer: No History Surgical Site Infection Following: None - Disposition Have Diagnosis and Disposition been Completed?: Yes Diagnosis: Hypercapnia, Respiratory acidosis, COPD exacerbation Disposition: HOSPITALIZED Disposition Time: 13:08 Patient Plan: Admission Patient Problems: Current Active Problems Problem Status Onset Respiratory acidosis Acute Hypercapnia Acute COPD exacerbation Acute Condition: CRITICAL
[2017-12-16 13:14] LABS: D DIMER < 200 ng/mL (0-243); INR 1.06 (0.93-1.08); PARTIAL THROMBOPLASTIN TIME 32.1 Seconds (25.1-36.5); PROTHROMBIN TIME 12.2 SECONDS (9.4-12.5)
[2017-12-16 13:45] LABS: ARTERIAL BLOOD GAS HCO3 37.1 mmol/L (21-28); ARTERIAL BLOOD GAS HEMOGLOBIN 11.2 g/dL (11.7-17.4); ARTERIAL BLOOD GAS O2 CAPACITY 15.2 mL/dl (16-24); ARTERIAL BLOOD GAS O2 CONTENT 14.4 ML/dl (15-23); ARTERIAL BLOOD GAS O2 SAT 94.5 % (95-98); ARTERIAL BLOOD GAS PCO2 104 mm/Hg (35-45); ARTERIAL BLOOD GAS TCO2 40.3 mmol.L (22-28)
[2017-12-16 13:52] LABS: ARTERIAL BLOOD GAS PH 7.16 (7.35-7.45)
--- NOTE | 2017-12-16 13:57 | RAD ---
HISTORY: short of breath COMPARISON: 06/11/2017 FINDINGS: LUNGS: No active pulmonary disease. PLEURA: No significant pleural effusion identified, no pneumothorax apparent. CARDIOVASCULAR: Normal. OSSEOUS STRUCTURES: No significant abnormalities. VISUALIZED UPPER ABDOMEN: Normal. OTHER FINDINGS: None. IMPRESSION: No active disease.
[2017-12-16] MEDS ORDERED: Albuterol-Ipratrop 3 mg / 0.5 (3 ml) UD IH STA (14:48)
[2017-12-16 15:10] LABS: ARTERIAL BLOOD GAS HEMOGLOBIN 12.1 g/dL (11.7-17.4); ARTERIAL BLOOD GAS O2 CAPACITY 16.5 mL/dl (16-24); ARTERIAL BLOOD GAS O2 CONTENT 16.4 ML/dl (15-23); ARTERIAL BLOOD GAS O2 SAT 99.2 % (95-98); ARTERIAL BLOOD GAS PCO2 128 mm/Hg (35-45); ARTERIAL BLOOD GAS TCO2 44.6 mmol.L (22-28)
[2017-12-16 15:28] LABS: ARTERIAL BLOOD GAS HCO3 40.7 mmol/L (21-28); ARTERIAL BLOOD GAS PH 7.11 (7.35-7.45)
[2017-12-16] MEDS ORDERED: Levalbuterol 0.63 MG/3 ML Inhal Soln UD IH PRN (15:37)
--- NOTE | 2017-12-16 15:41 | CP.PCM.HP ---
Addendum entered and electronically signed by Venancio Olivera DO 09:05: Additional Assessment Respiratory Acidosis - Treatment as per first assessment Original Note: <Venancio Olivera - Last Filed: 12/17/17 09:00> History of Present Illness - History of Present Illness History of Present Illness: Medicine H&P: Dr. Rodríguez Chief Complaint: Dyspnea HPI: 72 year old female with pertinent medical history of asthma, copd, and diastolic CHF (EF 66%) presents with shortness of breath of several days' duration which has gotten worse in the past day. Patient states that she also has a non-productive cough which has been keeping her up at night. She denies having any sick contacts at home and denies having any fevers or chills. Patient also denies any lower extremity swelling. Review of Systems: 12 point ROS obtained and negative except as per HPI Surgical Hx: Hysterectomy Medical Hx: Diastolic CHF, Asthma, COPD Allergies: Peanut Social Hx: Former chewing tobacco; Denies illicits, alcohol Home Meds: Reviewed, as per MAR Family History: Myeloma; Breast cancer Present on Admission - Present on Admission Any Indicators Present on Admission: No Past Patient History - Infectious Disease Hx of Infectious Diseases: None - Tetanus Immunizations Tetanus Immunization: Unknown - Past Social History Smoking Status: Former Smoker - CARDIAC Hx Hypertension: Yes - PULMONARY Hx Asthma: Yes Hx Chronic Obstructive Pulmonary Disease (COPD): Yes - NEUROLOGICAL Hx Neurological Disorder: Yes (Concussion) - HEENT Hx HEENT Problems: No - RENAL Hx Chronic Kidney Disease: No - ENDOCRINE/METABOLIC Hx Hypothyroidism: Yes - HEMATOLOGICAL/ONCOLOGICAL Hx Blood Disorders: No - INTEGUMENTARY Hx Dermatological Problems: No - MUSCULOSKELETAL/RHEUMATOLOGICAL Hx Falls: Yes (past) - GASTROINTESTINAL Hx Gastrointestinal Disorders: Yes Hx Gastroesophageal Reflux: Yes - GENITOURINARY/GYNECOLOGICAL Hx Genitourinary Disorders: No - PSYCHIATRIC Hx Psychophysiologic Disorder: No Hx Substance Use: No - SURGICAL HISTORY Hx Hysterectomy: Yes - ANESTHESIA Hx Anesthesia: Yes Hx Anesthesia Reactions: No Hx Malignant Hyperthermia: No Meds Allergies/Adverse Reactions: Allergies Allergy/AdvReac Type Severity Reaction Status Date / Time peanut Allergy ANAPHYLAXIS Verified 12/16/17 12:25 Physical Exam - Constitutional Appears: Well - Head Exam Head Exam: ATRAUMATIC, NORMAL INSPECTION, NORMOCEPHALIC - Eye Exam Eye Exam: EOMI, Normal appearance, PERRL Pupil Exam: NORMAL ACCOMODATION, PERRL - ENT Exam ENT Exam: Mucous Membranes Moist, Normal Exam - Neck Exam Neck exam: Positive for: Normal Inspection - Respiratory Exam Respiratory Exam: Decreased Breath Sounds, Rales - Cardiovascular Exam Cardiovascular Exam: REGULAR RHYTHM - GI/Abdominal Exam GI & Abdominal Exam: Normal Bowel Sounds, Soft. absent: Tenderness - Extremities Exam Extremities exam: Positive for: normal inspection - Back Exam Back exam: NORMAL INSPECTION - Neurological Exam Neurological exam: Alert, CN II-XII Intact, Normal Gait, Oriented x3, Reflexes Normal - Psychiatric Exam Psychiatric exam: Normal Affect, Normal Mood - Skin Skin Exam: Dry, Intact, Normal Color, Warm Results - Vital Signs Recent Vital Signs: Last Vital Signs Temp 98.4 F 12/16/17 12:08 Pulse 91 H 12/16/17 14:30 Resp 30 H 12/16/17 14:30 BP 114/79 12/16/17 14:30 Pulse Ox 96 12/16/17 14:30 - Labs Result Diagrams: 12/17/17 03:35 12/17/17 03:35 Labs: Laboratory Results - last 24 hr 12/16/17 12/16/17 12/16/17 12:30 12:30 12:30 WBC 5.1 D RBC 4.04 Hgb 11.9 L Hct 38.9 MCV 96.3 D MCH 29.5 MCHC 30.6 L RDW 14.3 Plt Count 166 MPV 10.6 Gran % 71.2 H Lymph % (Auto) 22.6 [place] % (Auto) 5.8 Eos % (Auto) 0.4 L Baso % (Auto) 0.0 Gran # 3.65 Lymph # (Auto) 1.2 [place] # (Auto) 0.3 Eos # (Auto) 0.0 Baso # (Auto) 0.00 PT 12.2 INR 1.06 APTT 32.1 D-Dimer, Quantitative < 200 pCO2 pO2 HCO3 ABG pH ABG Total CO2 ABG O2 Saturation ABG O2 Content ABG Base Excess ABG Hemoglobin ABG Carboxyhemoglobin POC ABG HHb (Measured) ABG Methemoglobin ABG O2 Capacity Hgb O2 Saturation FiO2 Sodium 140 Potassium 4.3 Chloride 96 L Carbon Dioxide 38 H Anion Gap 11 BUN 18 Creatinine 0.5 L Est GFR ( Amer) > 60 Est GFR (Non-Af Amer) > 60 Random Glucose 151 H Calcium 9.0 Total Bilirubin 0.3 AST 111 H D ALT 102 H Alkaline Phosphatase 76 Troponin I 0.03 D NT-Pro-B Natriuret Pep 5130 H Total Protein 7.1 Albumin 4.3 Globulin 2.8 Albumin/Globulin Ratio 1.6 12/16/17 12/16/17 13:41 15:06 WBC RBC Hgb Hct MCV MCH MCHC RDW Plt Count MPV Gran % Lymph % (Auto) [place] % (Auto) Eos % (Auto) Baso % (Auto) Gran # Lymph # (Auto) [place] # (Auto) Eos # (Auto) Baso # (Auto) PT INR APTT D-Dimer, Quantitative pCO2 104 H* 128 H* pO2 68.0 L 109.0 H HCO3 37.1 H 40.7 H* ABG pH 7.16 L* 7.11 L* ABG Total CO2 40.3 H 44.6 H ABG O2 Saturation 94.5 L 99.2 H ABG O2 Content 14.4 L 16.4 ABG Base Excess 5.6 H 7.2 H ABG Hemoglobin 11.2 L 12.1 ABG Carboxyhemoglobin 2.4 H 2.5 H POC ABG HHb (Measured) 5.3 H 0.8 ABG Methemoglobin 0.9 1.0 ABG O2 Capacity 15.2 L 16.5 Hgb O2 Saturation 91.4 L 95.6 FiO2 28.0 40.0 Sodium Potassium Chloride Carbon Dioxide Anion Gap BUN Creatinine Est GFR ( Amer) Est GFR (Non-Af Amer) Random Glucose Calcium Total Bilirubin AST ALT Alkaline Phosphatase Troponin I NT-Pro-B Natriuret Pep Total Protein Albumin Globulin Albumin/Globulin Ratio Assessment & Plan - Assessment and Plan (Free Text) Assessment: 72 year old female with pertinent history of COPD, diastolic CHF and Asthma presents with shortness of breath. Patient ABG showed pCO2 of 104 then 128, with pH of 7.1. Patient's CXR does not show consolidation; two SIRS criteria are present. Of note, BNP was also elevated at 5100; ECHO from 12/2016 shows 66 % EF with LVH but normal LV function. But at this point, shortness of breath is most likely 2/2 COPD exacerbation. Plan Acute Hypercapneic Hypoxic Respiratory Failure possibly 2/2 COPD Exacerbation VS CHF Exacerbation - Xopenex, Solumedrol, Pulmicort, Azithro, Doxy, Rocephin - Patient intubated on Midazolam Drip Diastolic Heart Failure - Cardiology consult: Dr. Parry Chronic Anemia - H&H stable (11.9) - Past work up shows iron deficiency Prophylaxis - Protonix, Lovenox <Marcos,Garett U - Last Filed: 12/20/17 14:07> Results - Vital Signs Recent Vital Signs: Last Vital Signs Temp 98 F 12/20/17 04:00 Pulse 80 12/20/17 06:20 Resp 36 H 12/20/17 06:10 BP 157/84 H 12/20/17 06:00 Pulse Ox 100 12/20/17 06:20 - Labs Result Diagrams: 12/18/17 05:30 12/20/17 05:00 Labs: Laboratory Results - last 24 hr 12/19/17 12/19/17 12/20/17 14:08 22:19 00:45 pCO2 pO2 HCO3 ABG pH ABG Total CO2 ABG O2 Saturation ABG O2 Content ABG Base Excess ABG Hemoglobin ABG Carboxyhemoglobin POC ABG HHb (Measured) ABG Methemoglobin ABG O2 Capacity Hgb O2 Saturation FiO2 Sodium Potassium Chloride Carbon Dioxide Anion Gap BUN Creatinine Est GFR ( Amer) Est GFR (Non-Af Amer) POC Glucose (mg/dL) 124 H 88 125 H Random Glucose Calcium Magnesium Total Bilirubin Direct Bilirubin AST ALT Alkaline Phosphatase Total Protein Albumin Globulin Albumin/Globulin Ratio 12/20/17 12/20/17 12/20/17 05:00 07:00 07:18 pCO2 76 H* pO2 91.0 HCO3 38.3 H ABG pH 7.31 L ABG Total CO2 40.6 H ABG O2 Saturation 98.8 H ABG O2 Content 16.2 ABG Base Excess 9.4 H ABG Hemoglobin 11.9 ABG Carboxyhemoglobin 1.6 H POC ABG HHb (Measured) 1.2 ABG Methemoglobin 1.2 ABG O2 Capacity 16.4 Hgb O2 Saturation 96.1 FiO2 28.0 Sodium 143 Potassium 5.2 H Chloride 100 Carbon Dioxide 37 H Anion Gap 12 BUN 26 H Creatinine 0.5 L Est GFR ( Amer) > 60 Est GFR (Non-Af Amer) > 60 POC Glucose (mg/dL) 133 H Random Glucose 130 H Calcium 8.5 Magnesium 2.5 H Total Bilirubin 0.3 Direct Bilirubin 0.1 AST 57 H D ALT 80 H Alkaline Phosphatase 66 Total Protein 7.0 Albumin 3.9 Globulin 3.1 Albumin/Globulin Ratio 1.3 12/20/17 11:11 pCO2 pO2 HCO3 ABG pH ABG Total CO2 ABG O2 Saturation ABG O2 Content ABG Base Excess ABG Hemoglobin ABG Carboxyhemoglobin POC ABG HHb (Measured) ABG Methemoglobin ABG O2 Capacity Hgb O2 Saturation FiO2 Sodium Potassium Chloride Carbon Dioxide Anion Gap BUN Creatinine Est GFR ( Amer) Est GFR (Non-Af Amer) POC Glucose (mg/dL) 126 H Random Glucose Calcium Magnesium Total Bilirubin Direct Bilirubin AST ALT Alkaline Phosphatase Total Protein Albumin Globulin Albumin/Globulin Ratio Attending/Attestation - Attestation I have personally seen and examined this patient.: Yes I have fully participated in the care of the patient.: Yes I have reviewed all pertinent clinical information: Yes Notes (Text): Please see/read my dictated notes.
[2017-12-16] MEDS ORDERED: Etomidate 20 mg/10ml Inj IV ONE (15:44)
[2017-12-16] MEDS ORDERED: Succinylcholine 200 mg/10 ml Inj IV ONE (15:45)
[2017-12-16] MEDS ORDERED: Midazolam 2 MG/2 ML VIAL IVP STA (16:02)
[2017-12-16] MEDS ORDERED: Midazolam 100 mg/100ml in NS 100 MG/100 ML SOL IV PRN (16:02)
[2017-12-16] MEDS ORDERED: Fentanyl 1000mcg/100ml NS 1,000 MCG/100 ML BAG IV PRN (16:03)
[2017-12-16] MEDS ORDERED: Midazolam 2 MG/2 ML VIAL ONE ×2 (16:03→16:19)
[2017-12-16] MEDS ORDERED: Succinylcholine 200 mg/10 ml Inj IV STA (16:06)
[2017-12-16] MEDS ORDERED: Etomidate 20 mg/10ml Inj IVP STA (16:06)
[2017-12-16] MEDS ORDERED: Midazolam 5 MG/ML IVP STA (16:16)
[2017-12-16] MEDS: cefTRIAXone 1 gm 1 GM/100 ML BAG IVPB SCH (16:29)
--- NOTE | 2017-12-16 16:29 | RAD ---
HISTORY: s/p intubation COMPARISON: 12/16/2017 FINDINGS: LUNGS: No active pulmonary disease. PLEURA: No significant pleural effusion identified, no pneumothorax apparent. CARDIOVASCULAR: Normal. OSSEOUS STRUCTURES: No significant abnormalities. VISUALIZED UPPER ABDOMEN: Normal. OTHER FINDINGS: None. IMPRESSION: Endotracheal tube in satisfactory position
[2017-12-16] MEDS: Levalbuterol 0.63 MG/3 ML Inhal Soln UD IH SCH ×2 (18:06→20:10)
[2017-12-16] MEDS: Azithromycin 500MG/NS 250ml 500 MG/250 ML BAG IVPB SCH (18:06)
[2017-12-16] MEDS: MethylPREDNISolone 40 mg Vial IVP SCH (20:03)
[2017-12-16 20:08] LABS: URIC ACID 3.1 mg/dL (2.5-6.2)
[2017-12-16 20:20] LABS: TROPONIN I 0.04 ng/mL
[2017-12-17] MEDS: Levalbuterol 0.63 MG/3 ML Inhal Soln UD IH SCH ×7 (00:02→23:29)
--- NOTE | 2017-12-17 03:09 | CON ---
DATE: 12/16/2017 HISTORY OF PRESENT ILLNESS: The patient is a 72-year-old lady with history of COPD, asthma, pulmonary hypertension, diastolic CHF, who presented to the emergency department with shortness of breath, non-productive cough, and general fatigue. No chest pain. No fever, chills, nausea, vomiting or diarrhea were noted. Subsequent ABG reveals severe hypercapnic respiratory failure which did not resolve despite BiPAP application. In fact, her PCO2 was getting worse. PAST MEDICAL HISTORY: COPD, asthma, pulmonary hypertension, diastolic CHF. FAMILY HISTORY: Noncontributory. ALLERGIES: NKDA. SOCIAL HISTORY: The patient is ex-smoker. No alcohol or illicit drug abuse. MEDICATIONS AT HOME: Simvastatin, MiraLax, prednisone, Protonix, Synthroid, Xopenex, vitamin D, aspirin. REVIEW OF SYSTEMS: Review of 12-organ system other than mentioned in history of present illness is negative. PHYSICAL EXAMINATION VITAL SIGNS: Blood pressure 108/71, heart rate 93, oxygen saturation 100% on BiPAP. HEENT: Head and neck atraumatic. HEART: Regular rate and rhythm. S1 and S2 distant. ABDOMEN: Soft, nontender, non-distended. LUNGS: No wheezes, but air entry is poor and breathing fairly shallow even though the patient appears to be comfortable, not tachypneic. MUSCULOSKELETAL: No C/C/E. NEUROLOGICAL: The patient is not observed moving all extremities. SKIN: Moist. PSYCHIATRIC: The patient is very somnolent and does not respond to touch stimuli. LABORATORY DATA: WBC is 5.1, hemoglobin 11.9, platelet count 166. Sodium 140, potassium 4.3, chloride 96, carbon dioxide 38, BUN 18, creatinine is 0.5, glucose 151, AST 111, ALT 102, bilirubin 0.3, pro-BNP 5130, troponin is 0.03. ABG upon admission is 7.16/104, PO2 of 68 on FiO2 of 28%. BiPAP application, pH is 7.11, PCO2 of 128, PO2 of 109, oxygen saturation 99.2%. MEDICATIONS: The patient received Solu-Medrol, Lasix and DuoNeb in the ER. Chest x-ray showed significant emphysema bilaterally, some perihilar fullness. ASSESSMENT AND PLAN: This is a 72-year-old lady with hypercapnic respiratory failure, C02 narcosis, on BiPAP. I would recommend immediate intubation at present time; however, family is adamantly refusing it. Both sons are at bedside. They understand that the patient has very high risk of dying if endotracheal tube is not placed as soon as possible and hypercapnic respiratory failure progress; however, they still prefer to keep the patient rather comfortable than with endotracheal tube in. They fully understand the consequences of not putting the endotracheal tube in. They verbalized understanding. Meanwhile, I adjusted the BiPAP setting increasing inspiratory positive airway pressure from 12 to 20 cmH20, thus increasing driving pressure.. Her tidal volume is now bit improved from 220 to more than 300. The patient still appears to be comfortable. I agree with steroid taper, antibiotics, bronchodilators. We will continue with deep venous thrombosis and gastrointestinal prophylaxis, euvolemia, euglycemia, normothermia and oxygen saturation more than 90%. Septic workup including procalcitonin. Addendum: family agreed to intubation. ER physician is being intubating patient now. Will maintain low tidal volume ventilation and I:E ration of more then 1: 2.5 to avoid barotrauma due to air trapping. Follow up ABG and adjust vent setting based on its results. DVT/GI prophylaxis, oral hygiene, HOB>35 ccm time 40 min Ronny Rodriguez MD MTDBrandy
--- NOTE | 2017-12-17 03:28 | HP ---
HISTORY OF PRESENT ILLNESS: The patient is a 72-year-old -[place] female, who has been lost to follow up since the last few months in the office. Came to the emergency room complaining of shortness of breath and cough for the last few days. According to the triage note, the patient presented with above complaints. According to the ER physician evaluation, the patient come with nonproductive cough, shortness of breath, generalized fatigue. REVIEW OF SYSTEMS: Thirteen systems review was positive for shortness breath, cough. CODE STATUS: Full code. LIVING WILL ADVANCED DIRECTIVE: None. HEIGHT: 5 feet 1. ALLERGIES: PEANUT. BMI: 23. HOME MEDICATIONS: Prednisone 30 mg, simvastatin 10 mg, MiraLax 17 g, Protonix 40, Synthroid 50 mcg, Xopenex nebulizer, Drisdol and aspirin. SOCIAL HISTORY: Former smoker. Denies alcohol. Denies drug use. OCCUPATIONAL HISTORY: The patient is a disabled female. MENSTRUAL HISTORY: Postmenopausal. PAST MEDICAL AND SURGICAL HISTORY: History of multiple acute exacerbation of chronic obstructive pulmonary disease with bronchospasm, history of hypertension, history of dyslipidemia, history of constipation, history of hypothyroidism, history of hypovitaminosis D, history of deconditioning, history of noncompliance, history of thyromegaly, history of hypokalemia, hypophosphatemia, history of normocytic anemia, history of kyphosis, history of iron-deficiency anemia, history of packed red blood cell transfusion, history of hypercapnic hypercarbic hypoxic respiratory failure, history of right-sided diastolic congestive heart failure, history of pulmonary hypertension with elevated right ventricular systolic pressure, history of tachycardia, history of left axis deviation, history of multi nodular thyroid goiter, history of moderate mitral and tricuspid regurgitation. Past medical history is significant for history of ventilator-dependent, BiPAP-dependent respiratory failure; history of poor compliance, history of questionable paroxysmal atrial fibrillation, history of questionable alpha thalassemia, history of questionable iron deficiency, history of moderate pulmonary hypertension, history of systemic inflammatory response syndrome, history of bandemia, history of severe respiratory acidosis and hypercarbia, history of CO2 narcosis, history of hypochloremic metabolic alkalosis with hypercarbia and CO2 narcosis, history of osteoporosis. Past medical history is significant for history of osteopenia, history of cervical spine degenerative joint disease, history of hypertensive cardiovascular disease, history of hypochloremic metabolic alkalosis, history of hysterectomy, history of pneumonia, history of consolidation, history of cerebral contusion and frontal hematoma. The patient's past medical history is significant for history of gastroesophageal reflux. PHYSICAL EXAMINATION: GENERAL: The patient is seen in ER bed 7. Initially, in the emergency room, the patient was tried on BiPAP, but the patient's ABG showed severe respiratory acidosis. The patient and family initially resisted the patient to be intubated, but the patient was later on intubated in the ER by the ER physician. The patient is seen intubated on bed #7 in the emergency room. The patient is intubated and sedated, responsive to painful stimuli. VITAL SIGNS: T-max 99.2. Telemetry shows sinus rhythm, sinus tachycardia, heart rate in the low 90s and high 80s beats per minute. Blood pressure is 112/68, 130/89, 157/98, 126/83; respirations 20-21; O2 sat on ventilator is 94-100%. HEENT: Head examination normocephalic, atraumatic. HEENT examination shows pinkish pale conjunctivae. Anicteric sclerae. No oropharyngeal lesion. No neck rigidity. Positive thyromegaly. CHEST: Kyphosis. LUNGS: Shows decreased air entry. Positive rhonchi, positive wheezing bilaterally. CARDIOVASCULAR: Shows S1, S2. Regular rhythm. Positive systolic murmur, left sternal border, right second intercostal space, left second intercostal space. ABDOMEN: Soft, protuberant. Positive bowel sound. GENITALIA: Female. RECTAL: Deferred. EXTREMITY: Shows trace swelling of the lower extremity. MUSCULOSKELETAL: Shows a body mass index of 23. NEUROLOGICAL: The patient is alert. The patient is arousable to painful stimuli. NEURO: Examination is limited as the patient is sedated, intubated. PSYCHIATRIC: Examination is not applicable. VASCULAR: Palpable pulses. DIAGNOSTICS: On 12/16/2017, WBC 5.1, hemoglobin and hematocrit 11.9 and 38.9, platelets 166. Granulocytes 71% segs. PT/PTT 12.2 and 32.1. D-dimer less than 200. Initial ABG on 28% FIO2: PH of 7.16, pCO2 of 104, pO2 of 68, bicarb 37, saturation 94%. Repeat ABG on 40% FIO2: PH of 7.11, pCO2 of 128, pO2 of 109, bicarb 41, saturation of 99.2%. Sodium 140, potassium 4.3, chloride 96, CO2 of 38, anion gap 11, BUN 18, creatinine 0.5, GFR greater 60, glucose 115, calcium 9, AST 111, ALT 102. BNP 5130. Troponin 0.03. The patient's chest x-ray was done in the emergency room and pre and post intubation chest x-ray was reviewed. ET tube is above rj. EKG shows sinus rhythm, sinus tachycardia, left axis deviation, T-wave inversions in lead I, aVL and V4-V6. TREATMENT IN THE EMERGENCY ROOM: The patient was treated in the emergency room by the ER physician. The patient was given Versed for sedation. The patient was given succinylcholine. The patient was given etomidate. The patient was given Solu-Medrol 125, Protonix 40 IV, Lasix 40 IV, DuoNeb was given. The patient was given etomidate 30 mg. The patient was then started on fentanyl drip. IMPRESSION AND PLAN: A 72-year-old female presented with cough, fatigue, shortness of breath and nonproductive cough. Impression: 1. Ventilator-dependent acute hypercarbic hypercapnic hypoxic respiratory failure with severe respiratory acidosis. 2. Bronchospasm. 3. Acute exacerbation of chronic obstructive pulmonary disease. 4. Normocytic anemia with granulocytosis. 5. Hypercarbia and hypercapnia. 6. Carbon dioxide narcosis. 7. Severe respiratory acidosis and hypoxemia. 8. Metabolic alkalosis. 9. Hyperglycemia. 10. Transaminitis. 11. Mild acute exacerbation of right-sided diastolic congestive heart failure with elevated BNP. 12. Indeterminate troponin. 13. Sinus tachycardia. 14. Left axis deviation. 15. Ventilator-dependent respiratory failure. 16. History of hypertension, hyperlipidemia, hypothyroidism, hypovitaminosis D. Plan at this time, the patient's entire diagnostic data was reviewed. The patient will be admitted to Intensive Care Unit. Serial labs have been ordered. Lipid panel has been ordered. Thyroid panel has been ordered. Vitamin D 25-hydroxy will be ordered. The patient has been ordered serial cardiac enzymes, serial troponin has been ordered. Repeat EKG has been ordered daily x3. Blood cultures, sputum cultures, urine cultures have been ordered. Consultation, Cardiology and Pulmonary has been ordered. Procalcitonin level ordered. Currently, the patient was started on doxycycline 100 mg IV every 12. The patient is on fentanyl drip at 20 mcg/hour. The patient was given Lasix 40 IV. The patient was started on DVT prophylaxis, Lovenox 40 mg subcu daily, Protonix 40 IV twice a day, Rocephin 1 g IV daily, Solu-Medrol 40 mg IV every 8, Tylenol suppository every 6 hours p.r.n. The patient is on Xopenex nebulizer 0.63 mg every 4 hours [id number], every 2 hours p.r.n. and Zofran 4 mg IV every four p.r.n. Repeat EKG ordered. Repeat echo ordered. The patient is kept n.p.o. The patient is started on fingerstick blood sugar every 6 hours. ADRIANNA stockings, SCDs. The patient has been ordered above medications. Therapeutic interventions. I have met with the patient's son at the bedside. I have explained to the patient's son about overall the patient's guarded to poor prognosis, critical condition and to ICU was discussed and explained to the patient's son at length. The patient's son was advised that the patient at present needs ventilator support for her breathing and the patient's further management will be dependent upon the patient's clinical condition, hemodynamic status and as per the patient's response to therapeutic intervention, as per the patient's diagnostic test results and as per recommendation by all the physicians involved in the care of the patient. Time spent in the review of the entire data, examining the patient and management time spent is more than 1 hour 55 minutes. Dictated and electronically signed, not read. Garett Rodríguez MD
[2017-12-17 03:56] LABS: HEMOGLOBIN 11.9 g/dL (12.0-16.0); MEAN CELL VOLUME 92.7 fl (80.0-105.0); RBC 3.98 10^6/uL (3.5-6.1); WHITE BLOOD COUNT 5.2 10^3/ul (4.5-11.0)
[2017-12-17 03:57] LABS: GRAN % 82.3 % (50.0-68.0); LYMPH % 13.1 % (22.0-35.0); MEAN CORPUSCULAR HEMOGLOBIN 29.9 pg (25.0-35.0); MEAN CORPUSCULAR HGB CONC 32.2 g/dl (31.0-37.0); MEAN PLATELET VOLUME 11.5 fl (7.0-11.0); MONO % 4.6 % (1.0-6.0)
[2017-12-17 03:58] LABS: GRAN # 4.26 (1.4-6.5); LYMPH # 0.7 (1.2-3.4); MONO # 0.2 (0.1-0.6)
[2017-12-17 04:22] LABS: FREE T4 0.97 ng/dL (0.78-2.19); T4 5.8 ug/dL (5.5-11.0)
[2017-12-17 04:28] LABS: TROPONIN I 0.04 ng/mL
[2017-12-17 04:32] LABS: LDL CHOLESTEROL 70 mg/dL (0-129)
[2017-12-17 04:38] LABS: ALB/GLOB RATIO 1.4 (1.1-1.8); ALBUMIN 3.9 g/dL (3.0-4.8); BLOOD UREA NITROGEN 21 mg/dL (7-21); CALCIUM 9.1 mg/dL (8.4-10.5); GFR AFRICAN-AMERICAN > 60; GFR NON-AFRICAN AMERICAN > 60
[2017-12-17 04:39] LABS: ALT/SGPT 84 U/L (7-56); AST/SGOT 76 U/L (14-36); BILIRUBIN,DIRECT 0.2 mg/dL (0.0-0.4); HDL CHOLESTEROL 101 mg/dL (29-60)
[2017-12-17] MEDS: MethylPREDNISolone 40 mg Vial IVP SCH ×3 (05:25→20:00)
[2017-12-17 06:21] LABS: ARTERIAL BLOOD GAS O2 SAT 99.8 % (95-98); ARTERIAL BLOOD GAS PCO2 30 mm/Hg (35-45); ARTERIAL BLOOD GAS TCO2 33.9 mmol.L (22-28)
[2017-12-17 06:24] LABS: ARTERIAL BLOOD GAS PH 7.65 (7.35-7.45)
[2017-12-17 07:30] LABS: INR 1.18 (0.93-1.08); PARTIAL THROMBOPLASTIN TIME 23.2 Seconds (25.1-36.5); PROTHROMBIN TIME 13.6 SECONDS (9.4-12.5)
[2017-12-17 09:06] LABS: ARTERIAL BLOOD GAS HCO3 37.6 mmol/L (21-28); ARTERIAL BLOOD GAS HEMOGLOBIN 11.5 g/dL (11.7-17.4); ARTERIAL BLOOD GAS O2 CAPACITY 15.9 mL/dl (16-24); ARTERIAL BLOOD GAS O2 CONTENT 15.9 ML/dl (15-23); ARTERIAL BLOOD GAS O2 SAT 99.9 % (95-98); ARTERIAL BLOOD GAS PCO2 65 mm/Hg (35-45); ARTERIAL BLOOD GAS PH 7.37 (7.35-7.45); ARTERIAL BLOOD GAS TCO2 39.6 mmol.L (22-28)
[2017-12-17] MEDS: Azithromycin 500MG/NS 250ml 500 MG/250 ML BAG IVPB SCH (09:30)
[2017-12-17] MEDS: Enoxaparin 40 mg Syringe SC SCH (09:30)
[2017-12-17] MEDS ORDERED: Enoxaparin 30 mg Syringe SC SCH (10:00)
[2017-12-17] MEDS: cefTRIAXone 1 gm 1 GM/100 ML BAG IVPB SCH (10:26)
--- NOTE | 2017-12-17 11:49 | CP.CCUPN ---
<Fred Wong - Last Filed: 12/17/17 11:46> CCU Subjective - Physician Review Subjective (Free Text): 12/17/17 11:46 Patient seen and examined at bedside in ICU. On sedation vacation at time of exam, pressure support trial, tolerating well. Patient is awake and partially alert, eyes tracking between staff and family members when talking to her at bedside. Shakes head yes/no slightly to some questions. AM ABG shows dramatic improvement of her hypercapnia, but now pH is alkalotic. CCU Objective - Vital Signs / Intake & Output Vital Signs (Last 4 hours): Vital Signs Temp Resp Pulse Ox 12/17/17 10:00 99.3 F 12/17/17 09:30 99.7 F H 12/17/17 08:30 100.8 F H 12/17/17 08:07 38 H 96 Intake and Output (Last 8hrs): Intake & Output 12/16/17 12/17/17 12/17/17 22:59 06:59 14:59 Intake Total 49 Balance 49 Intake: IV 49 - Physical Exam Head: Positive for: Atraumatic, Normocephalic Pupils: Positive for: PERRL. Negative for: Non-Reactive, Pinpoint Extroacular Muscles: Positive for: Other (not following commands for EOMI testing, but able to independantly track between staff and family members in room). Negative for: Gaze Palsy, Entrapment Conjunctiva: Positive for: Normal. Negative for: Injected, Icteric Mouth: Positive for: Moist Mucous Membranes, Other (ETT in place) Nose (External): Positive for: Atraumatic. Negative for: Abrasion, Laceration Nose (Internal): Positive for: Normal Inspection, No Active Bleeding. Negative for: Epistaxis Neck: Positive for: Normal Range of Motion (minimal spontaneous head movements, but passive ROM intact). Negative for: Meningeal Signs, MIDLINE TENDERNESS, Paraspinal Tenderness, JVD Respiratory/Chest: Positive for: Decreased Breath Sounds. Negative for: Respiratory Distress, Accessory Muscle Use, Wheezes Cardiovascular: Positive for: Regular Rate and Rhythm, Normal S1, S2. Negative for: Murmurs, Irregular Rhythm, Tachycardic, Bradycardic Abdomen: Negative for: Tenderness, Distention, Peritoneal Signs Upper Extremity: Positive for: Normal Inspection, NORMAL PULSES. Negative for: Cyanosis, Edema, Tenderness, Swelling, Erythema, Deformity Lower Extremity: Positive for: Normal Inspection. Negative for: Edema, CALF TENDERNESS Neurological: Positive for: Motor Func Grossly Intact, Other (intubated, on sedation vacation, following some commands, tracking family/staff with eyes, intermittent small movements of extremities) Skin: Positive for: Warm, Dry, Normal Color. Negative for: Rashes Psychiatric: Positive for: Other (awake/partially alert, but intubated so unable to fully assess, not overtly agitated/anxious) - Medications Active Medications: Active Medications Generic Name Dose Route Start Last Admin Trade Name Freq PRN Reason Stop Dose Admin Acetaminophen 650 mg 12/16/17 19:09 12/17/17 08:30 Tylenol 650 Mg Supp RC 650 mg Q6H PRN Administration TEMP>=99.5F Enoxaparin Sodium 40 mg 12/17/17 10:00 12/17/17 09:30 Lovenox SC 40 mg DAILY KRISTINE Administration Protocol Ceftriaxone Sodium 1 gm in 100 mls @ 100 mls/hr 12/16/17 15:30 12/17/17 10:26 Rocephin 1 Gram Ivpb IVPB 100 mls/hr DAILY KRISTINE Administration Protocol Azithromycin 500 mg in 250 mls @ 167 mls/hr 12/16/17 15:30 12/17/17 09:30 Zithromax 500mg In Ns IVPB 167 mls/hr DAILY KRISTINE Administration Protocol Fentanyl Citrate 1,000 mcg in 100 mls @ 2 mls/hr 12/16/17 16:03 12/17/17 08: 05 Fentanyl Citrate/Sodium Chloride 1 Mg/100 Ml IV 0 mcg/hr .Q24H PRN 0 mls/hr TITRATE PER MD ORDER Titration Protocol 20 MCG/HR Midazolam 100 mg/100ml in NS 100 mg in 100 mls @ 1 mls/hr 12/16/17 16:02 08:05 Midazolam 100 Mg/100ml In Ns IV 0 mg/hr .Q24H PRN 0 mls/hr Sedation Titration Protocol 1 MG/HR Doxycycline Hyclate 100 mg/ 100 mls @ 100 mls/hr 12/16/17 22:00 12/17/17 09: 27 Sodium Chloride IVPB 100 mls/hr Q12 KRISTINE Administration Protocol Levalbuterol HCl 0.63 mg 12/16/17 15:37 Xopenex IH Q2 PRN Shortness of Breath Levalbuterol HCl 0.63 mg 12/16/17 15:45 12/17/17 11:07 Xopenex IH 0.63 mg Q4H KRISTINE Administration Methylprednisolone 40 mg 12/16/17 20:00 12/17/17 05:25 Solu-Medrol IVP 40 mg Q8H KRISTINE Administration Ondansetron HCl 4 mg 12/16/17 19:09 Zofran Inj IVP Q4H PRN Nausea/Vomiting Pantoprazole Sodium 40 mg 12/16/17 18:00 12/17/17 09:31 Protonix Inj IVP 40 mg BID KRISTINE Administration - Patient Studies Lab Studies: Lab Studies 12/17/17 12/17/17 12/17/17 Range/Units 09:00 06:01 06:00 WBC (4.5-11.0) 10^3/ul RBC (3.5-6.1) 10^6/uL Hgb (12.0-16.0) g/dL Hct (36.0-48.0) % MCV (80.0-105.0) fl MCH (25.0-35.0) pg MCHC (31.0-37.0) g/dl RDW (11.5-14.5) % Plt Count (120.0-450.0) 10^3/uL MPV (7.0-11.0) fl Gran % (50.0-68.0) % Lymph % (Auto) (22.0-35.0) % [place] % (Auto) (1.0-6.0) % Eos % (Auto) (1.5-5.0) % Baso % (Auto) (0.0-3.0) % Gran # (1.4-6.5) Lymph # (Auto) (1.2-3.4) [place] # (Auto) (0.1-0.6) Eos # (Auto) (0.0-0.7) Baso # (Auto) (0.0-2.0) K/mm3 PT (9.4-12.5) SECONDS INR (0.93-1.08) APTT (25.1-36.5) Seconds pCO2 65 H 30 L (35-45) mm/Hg pO2 127.0 H 212.0 H (80-100) mm/Hg HCO3 37.6 H 33.0 H (21-28) mmol/L ABG pH 7.37 7.65 H* (7.35-7.45) ABG Total CO2 39.6 H 33.9 H (22-28) mmol.L ABG O2 Saturation 99.9 H 99.8 H (95-98) % ABG O2 Content 15.9 (15-23) ML/dl ABG Base Excess 10.1 H 12.1 H (-2.0-3.0) mmol/L ABG Hemoglobin 11.5 L (11.7-17.4) g/dL ABG Carboxyhemoglobin 1.7 H (0.5-1.5) % POC ABG HHb (Measured) 0.1 (0-5) % ABG Methemoglobin 1.4 (0.0-3.0) % ABG O2 Capacity 15.9 L (16-24) mL/dl ABG Potassium 3.1 L (3.6-5.2) mmol/L Hgb O2 Saturation 96.8 (95.0-98.0) % Glucose 96 (65-105) mg/dl Lactate 1.3 (0.7-2.1) mmol/L FiO2 35.0 50.0 % Sodium 139.0 (132-148) mmol/L Potassium (3.6-5.0) mmol/L Chloride 104.0 (98-107) mmol/L Carbon Dioxide (21-33) mmol/L Anion Gap (10-20) BUN (7-21) mg/dL Creatinine (0.7-1.2) mg/dl Est GFR ( Amer) Est GFR (Non-Af Amer) POC Glucose (mg/dL) 89 (65-110) mg/dL Random Glucose (70-110) mg/dL Uric Acid (2.5-6.2) mg/dL Calcium (8.4-10.5) mg/dL Magnesium (1.7-2.2) mg/dL Total Bilirubin (0.2-1.3) mg/dL Direct Bilirubin (0.0-0.4) mg/dL GGT (8-78) U/L AST (14-36) U/L ALT (7-56) U/L Alkaline Phosphatase (38-126) U/L Troponin I ng/mL Total Protein (5.8-8.3) g/dL Albumin (3.0-4.8) g/dL Globulin gm/dL Albumin/Globulin Ratio (1.1-1.8) Triglycerides (35-160) mg/dL Cholesterol (130-200) mg/dL LDL Cholesterol Direct (0-129) mg/dL HDL Cholesterol (29-60) mg/dL Procalcitonin (0.19-0.49) NG/ML Free T4 (0.78-2.19) ng/dL Thyroxine (T4) (5.5-11.0) ug/dL TSH 3rd Generation (0.46-4.68) mIU/mL Arterial Blood Potassium 3.1 L (3.6-5.2) mmol/L 12/17/17 12/17/17 12/17/17 Range/Units 06:00 03:35 03:35 WBC (4.5-11.0) 10^3/ul RBC (3.5-6.1) 10^6/uL Hgb (12.0-16.0) g/dL Hct (36.0-48.0) % MCV (80.0-105.0) fl MCH (25.0-35.0) pg MCHC (31.0-37.0) g/dl RDW (11.5-14.5) % Plt Count (120.0-450.0) 10^3/uL MPV (7.0-11.0) fl Gran % (50.0-68.0) % Lymph % (Auto) (22.0-35.0) % [place] % (Auto) (1.0-6.0) % Eos % (Auto) (1.5-5.0) % Baso % (Auto) (0.0-3.0) % Gran # (1.4-6.5) Lymph # (Auto) (1.2-3.4) [place] # (Auto) (0.1-0.6) Eos # (Auto) (0.0-0.7) Baso # (Auto) (0.0-2.0) K/mm3 PT 13.6 H (9.4-12.5) SECONDS INR 1.18 H (0.93-1.08) APTT 23.2 L (25.1-36.5) Seconds pCO2 (35-45) mm/Hg pO2 (80-100) mm/Hg HCO3 (21-28) mmol/L ABG pH (7.35-7.45) ABG Total CO2 (22-28) mmol.L ABG O2 Saturation (95-98) % ABG O2 Content (15-23) ML/dl ABG Base Excess (-2.0-3.0) mmol/L ABG Hemoglobin (11.7-17.4) g/dL ABG Carboxyhemoglobin (0.5-1.5) % POC ABG HHb (Measured) (0-5) % ABG Methemoglobin (0.0-3.0) % ABG O2 Capacity (16-24) mL/dl ABG Potassium (3.6-5.2) mmol/L Hgb O2 Saturation (95.0-98.0) % Glucose (65-105) mg/dl Lactate (0.7-2.1) mmol/L FiO2 % Sodium (132-148) mmol/L Potassium (3.6-5.0) mmol/L Chloride (98-107) mmol/L Carbon Dioxide (21-33) mmol/L Anion Gap (10-20) BUN (7-21) mg/dL Creatinine (0.7-1.2) mg/dl Est GFR ( Amer) Est GFR (Non-Af Amer) POC Glucose (mg/dL) (65-110) mg/dL Random Glucose (70-110) mg/dL Uric Acid (2.5-6.2) mg/dL Calcium (8.4-10.5) mg/dL Magnesium (1.7-2.2) mg/dL Total Bilirubin (0.2-1.3) mg/dL Direct Bilirubin (0.0-0.4) mg/dL GGT 61 (8-78) U/L AST (14-36) U/L ALT (7-56) U/L Alkaline Phosphatase (38-126) U/L Troponin I ng/mL Total Protein (5.8-8.3) g/dL Albumin (3.0-4.8) g/dL Globulin gm/dL Albumin/Globulin Ratio (1.1-1.8) Triglycerides (35-160) mg/dL Cholesterol (130-200) mg/dL LDL Cholesterol Direct (0-129) mg/dL HDL Cholesterol (29-60) mg/dL Procalcitonin (0.19-0.49) NG/ML Free T4 0.97 (0.78-2.19) ng/dL Thyroxine (T4) 5.8 (5.5-11.0) ug/dL TSH 3rd Generation 2.85 (0.46-4.68) mIU/mL Arterial Blood Potassium (3.6-5.2) mmol/L 12/17/17 12/17/17 12/17/17 Range/Units 03:35 03:35 00:08 WBC 5.2 (4.5-11.0) 10^3/ul RBC 3.98 (3.5-6.1) 10^6/uL Hgb 11.9 L (12.0-16.0) g/dL Hct 36.9 (36.0-48.0) % MCV 92.7 D (80.0-105.0) fl MCH 29.9 (25.0-35.0) pg MCHC 32.2 (31.0-37.0) g/dl RDW 14.0 (11.5-14.5) % Plt Count 126 (120.0-450.0) 10^3/uL MPV 11.5 H (7.0-11.0) fl Gran % 82.3 H (50.0-68.0) % Lymph % (Auto) 13.1 L (22.0-35.0) % [place] % (Auto) 4.6 (1.0-6.0) % Eos % (Auto) 0.0 L (1.5-5.0) % Baso % (Auto) 0.0 (0.0-3.0) % Gran # 4.26 (1.4-6.5) Lymph # (Auto) 0.7 L (1.2-3.4) [place] # (Auto) 0.2 (0.1-0.6) Eos # (Auto) 0.0 (0.0-0.7) Baso # (Auto) 0.00 (0.0-2.0) K/mm3 PT (9.4-12.5) SECONDS INR (0.93-1.08) APTT (25.1-36.5) Seconds pCO2 (35-45) mm/Hg pO2 (80-100) mm/Hg HCO3 (21-28) mmol/L ABG pH (7.35-7.45) ABG Total CO2 (22-28) mmol.L ABG O2 Saturation (95-98) % ABG O2 Content (15-23) ML/dl ABG Base Excess (-2.0-3.0) mmol/L ABG Hemoglobin (11.7-17.4) g/dL ABG Carboxyhemoglobin (0.5-1.5) % POC ABG HHb (Measured) (0-5) % ABG Methemoglobin (0.0-3.0) % ABG O2 Capacity (16-24) mL/dl ABG Potassium (3.6-5.2) mmol/L Hgb O2 Saturation (95.0-98.0) % Glucose (65-105) mg/dl Lactate (0.7-2.1) mmol/L FiO2 % Sodium 143 (132-148) mmol/L Potassium 3.6 (3.6-5.0) mmol/L Chloride 98 (98-107) mmol/L Carbon Dioxide 34 H (21-33) mmol/L Anion Gap 15 (10-20) BUN 21 (7-21) mg/dL Creatinine 0.7 (0.7-1.2) mg/dl Est GFR ( Amer) > 60 Est GFR (Non-Af Amer) > 60 POC Glucose (mg/dL) 109 (65-110) mg/dL Random Glucose 101 (70-110) mg/dL Uric Acid (2.5-6.2) mg/dL Calcium 9.1 (8.4-10.5) mg/dL Magnesium 1.8 (1.7-2.2) mg/dL Total Bilirubin 0.8 (0.2-1.3) mg/dL Direct Bilirubin 0.2 (0.0-0.4) mg/dL GGT (8-78) U/L AST 76 H D (14-36) U/L ALT 84 H (7-56) U/L Alkaline Phosphatase 86 (38-126) U/L Troponin I 0.04 ng/mL Total Protein 6.7 (5.8-8.3) g/dL Albumin 3.9 (3.0-4.8) g/dL Globulin 2.8 gm/dL Albumin/Globulin Ratio 1.4 (1.1-1.8) Triglycerides 73 (35-160) mg/dL Cholesterol 189 (130-200) mg/dL LDL Cholesterol Direct 70 (0-129) mg/dL HDL Cholesterol 101 H (29-60) mg/dL Procalcitonin (0.19-0.49) NG/ML Free T4 (0.78-2.19) ng/dL Thyroxine (T4) (5.5-11.0) ug/dL TSH 3rd Generation (0.46-4.68) mIU/mL Arterial Blood Potassium (3.6-5.2) mmol/L 12/16/17 12/16/17 12/16/17 Range/Units 23:28 20:09 19:56 WBC (4.5-11.0) 10^3/ul RBC (3.5-6.1) 10^6/uL Hgb (12.0-16.0) g/dL Hct (36.0-48.0) % MCV (80.0-105.0) fl MCH (25.0-35.0) pg MCHC (31.0-37.0) g/dl RDW (11.5-14.5) % Plt Count (120.0-450.0) 10^3/uL MPV (7.0-11.0) fl Gran % (50.0-68.0) % Lymph % (Auto) (22.0-35.0) % [place] % (Auto) (1.0-6.0) % Eos % (Auto) (1.5-5.0) % Baso % (Auto) (0.0-3.0) % Gran # (1.4-6.5) Lymph # (Auto) (1.2-3.4) [place] # (Auto) (0.1-0.6) Eos # (Auto) (0.0-0.7) Baso # (Auto) (0.0-2.0) K/mm3 PT (9.4-12.5) SECONDS INR (0.93-1.08) APTT (25.1-36.5) Seconds pCO2 (35-45) mm/Hg pO2 (80-100) mm/Hg HCO3 (21-28) mmol/L ABG pH (7.35-7.45) ABG Total CO2 (22-28) mmol.L ABG O2 Saturation (95-98) % ABG O2 Content (15-23) ML/dl ABG Base Excess (-2.0-3.0) mmol/L ABG Hemoglobin (11.7-17.4) g/dL ABG Carboxyhemoglobin (0.5-1.5) % POC ABG HHb (Measured) (0-5) % ABG Methemoglobin (0.0-3.0) % ABG O2 Capacity (16-24) mL/dl ABG Potassium (3.6-5.2) mmol/L Hgb O2 Saturation (95.0-98.0) % Glucose (65-105) mg/dl Lactate (0.7-2.1) mmol/L FiO2 % Sodium (132-148) mmol/L Potassium (3.6-5.0) mmol/L Chloride (98-107) mmol/L Carbon Dioxide (21-33) mmol/L Anion Gap (10-20) BUN (7-21) mg/dL Creatinine (0.7-1.2) mg/dl Est GFR ( Amer) Est GFR (Non-Af Amer) POC Glucose (mg/dL) 123 H (65-110) mg/dL Random Glucose (70-110) mg/dL Uric Acid 3.1 (2.5-6.2) mg/dL Calcium (8.4-10.5) mg/dL Magnesium (1.7-2.2) mg/dL Total Bilirubin (0.2-1.3) mg/dL Direct Bilirubin (0.0-0.4) mg/dL GGT (8-78) U/L AST (14-36) U/L ALT (7-56) U/L Alkaline Phosphatase (38-126) U/L Troponin I 0.04 0.04 D ng/mL Total Protein (5.8-8.3) g/dL Albumin (3.0-4.8) g/dL Globulin gm/dL Albumin/Globulin Ratio (1.1-1.8) Triglycerides (35-160) mg/dL Cholesterol (130-200) mg/dL LDL Cholesterol Direct (0-129) mg/dL HDL Cholesterol (29-60) mg/dL Procalcitonin (0.19-0.49) NG/ML Free T4 (0.78-2.19) ng/dL Thyroxine (T4) (5.5-11.0) ug/dL TSH 3rd Generation (0.46-4.68) mIU/mL Arterial Blood Potassium (3.6-5.2) mmol/L 12/16/17 12/16/17 Range/Units 17:00 15:06 WBC (4.5-11.0) 10^3/ul RBC (3.5-6.1) 10^6/uL Hgb (12.0-16.0) g/dL Hct (36.0-48.0) % MCV (80.0-105.0) fl MCH (25.0-35.0) pg MCHC (31.0-37.0) g/dl RDW (11.5-14.5) % Plt Count (120.0-450.0) 10^3/uL MPV (7.0-11.0) fl Gran % (50.0-68.0) % Lymph % (Auto) (22.0-35.0) % [place] % (Auto) (1.0-6.0) % Eos % (Auto) (1.5-5.0) % Baso % (Auto) (0.0-3.0) % Gran # (1.4-6.5) Lymph # (Auto) (1.2-3.4) [place] # (Auto) (0.1-0.6) Eos # (Auto) (0.0-0.7) Baso # (Auto) (0.0-2.0) K/mm3 PT (9.4-12.5) SECONDS INR (0.93-1.08) APTT (25.1-36.5) Seconds pCO2 128 H* (35-45) mm/Hg pO2 109.0 H (80-100) mm/Hg HCO3 40.7 H* (21-28) mmol/L ABG pH 7.11 L* (7.35-7.45) ABG Total CO2 44.6 H (22-28) mmol.L ABG O2 Saturation 99.2 H (95-98) % ABG O2 Content 16.4 (15-23) ML/dl ABG Base Excess 7.2 H (-2.0-3.0) mmol/L ABG Hemoglobin 12.1 (11.7-17.4) g/dL ABG Carboxyhemoglobin 2.5 H (0.5-1.5) % POC ABG HHb (Measured) 0.8 (0-5) % ABG Methemoglobin 1.0 (0.0-3.0) % ABG O2 Capacity 16.5 (16-24) mL/dl ABG Potassium (3.6-5.2) mmol/L Hgb O2 Saturation 95.6 (95.0-98.0) % Glucose (65-105) mg/dl Lactate (0.7-2.1) mmol/L FiO2 40.0 % Sodium (132-148) mmol/L Potassium (3.6-5.0) mmol/L Chloride (98-107) mmol/L Carbon Dioxide (21-33) mmol/L Anion Gap (10-20) BUN (7-21) mg/dL Creatinine (0.7-1.2) mg/dl Est GFR ( Amer) Est GFR (Non-Af Amer) POC Glucose (mg/dL) (65-110) mg/dL Random Glucose (70-110) mg/dL Uric Acid (2.5-6.2) mg/dL Calcium (8.4-10.5) mg/dL Magnesium (1.7-2.2) mg/dL Total Bilirubin (0.2-1.3) mg/dL Direct Bilirubin (0.0-0.4) mg/dL GGT (8-78) U/L AST (14-36) U/L ALT (7-56) U/L Alkaline Phosphatase (38-126) U/L Troponin I ng/mL Total Protein (5.8-8.3) g/dL Albumin (3.0-4.8) g/dL Globulin gm/dL Albumin/Globulin Ratio (1.1-1.8) Triglycerides (35-160) mg/dL Cholesterol (130-200) mg/dL LDL Cholesterol Direct (0-129) mg/dL HDL Cholesterol (29-60) mg/dL Procalcitonin 0.05 L (0.19-0.49) NG/ML Free T4 (0.78-2.19) ng/dL Thyroxine (T4) (5.5-11.0) ug/dL TSH 3rd Generation (0.46-4.68) mIU/mL Arterial Blood Potassium (3.6-5.2) mmol/L Laboratory Results - last 24 hr 12/16/17 12/16/17 12/16/17 15:06 17:00 19:56 WBC RBC Hgb Hct MCV MCH MCHC RDW Plt Count MPV Gran % Lymph % (Auto) [place] % (Auto) Eos % (Auto) Baso % (Auto) Gran # Lymph # (Auto) [place] # (Auto) Eos # (Auto) Baso # (Auto) PT INR APTT pCO2 128 H* pO2 109.0 H HCO3 40.7 H* ABG pH 7.11 L* ABG Total CO2 44.6 H ABG O2 Saturation 99.2 H ABG O2 Content 16.4 ABG Base Excess 7.2 H ABG Hemoglobin 12.1 ABG Carboxyhemoglobin 2.5 H POC ABG HHb (Measured) 0.8 ABG Methemoglobin 1.0 ABG O2 Capacity 16.5 ABG Potassium Hgb O2 Saturation 95.6 Glucose Lactate FiO2 40.0 Sodium Potassium Chloride Carbon Dioxide Anion Gap BUN Creatinine Est GFR ( Amer) Est GFR (Non-Af Amer) POC Glucose (mg/dL) Random Glucose Uric Acid 3.1 Calcium Magnesium Total Bilirubin Direct Bilirubin GGT AST ALT Alkaline Phosphatase Troponin I 0.04 D Total Protein Albumin Globulin Albumin/Globulin Ratio Triglycerides Cholesterol LDL Cholesterol Direct HDL Cholesterol Procalcitonin 0.05 L Free T4 Thyroxine (T4) TSH 3rd Generation Arterial Blood Potassium 12/16/17 12/16/17 12/17/17 20:09 23:28 00:08 WBC RBC Hgb Hct MCV MCH MCHC RDW Plt Count MPV Gran % Lymph % (Auto) [place] % (Auto) Eos % (Auto) Baso % (Auto) Gran # Lymph # (Auto) [place] # (Auto) Eos # (Auto) Baso # (Auto) PT INR APTT pCO2 pO2 HCO3 ABG pH ABG Total CO2 ABG O2 Saturation ABG O2 Content ABG Base Excess ABG Hemoglobin ABG Carboxyhemoglobin POC ABG HHb (Measured) ABG Methemoglobin ABG O2 Capacity ABG Potassium Hgb O2 Saturation Glucose Lactate FiO2 Sodium Potassium Chloride Carbon Dioxide Anion Gap BUN Creatinine Est GFR ( Amer) Est GFR (Non-Af Amer) POC Glucose (mg/dL) 123 H 109 Random Glucose Uric Acid Calcium Magnesium Total Bilirubin Direct Bilirubin GGT AST ALT Alkaline Phosphatase Troponin I 0.04 Total Protein Albumin Globulin Albumin/Globulin Ratio Triglycerides Cholesterol LDL Cholesterol Direct HDL Cholesterol Procalcitonin Free T4 Thyroxine (T4) TSH 3rd Generation Arterial Blood Potassium 12/17/17 12/17/17 12/17/17 03:35 03:35 03:35 WBC 5.2 RBC 3.98 Hgb 11.9 L Hct 36.9 MCV 92.7 D MCH 29.9 MCHC 32.2 RDW 14.0 Plt Count 126 MPV 11.5 H Gran % 82.3 H Lymph % (Auto) 13.1 L [place] % (Auto) 4.6 Eos % (Auto) 0.0 L Baso % (Auto) 0.0 Gran # 4.26 Lymph # (Auto) 0.7 L [place] # (Auto) 0.2 Eos # (Auto) 0.0 Baso # (Auto) 0.00 PT INR APTT pCO2 pO2 HCO3 ABG pH ABG Total CO2 ABG O2 Saturation ABG O2 Content ABG Base Excess ABG Hemoglobin ABG Carboxyhemoglobin POC ABG HHb (Measured) ABG Methemoglobin ABG O2 Capacity ABG Potassium Hgb O2 Saturation Glucose Lactate FiO2 Sodium 143 Potassium 3.6 Chloride 98 Carbon Dioxide 34 H Anion Gap 15 BUN 21 Creatinine 0.7 Est GFR ( Amer) > 60 Est GFR (Non-Af Amer) > 60 POC Glucose (mg/dL) Random Glucose 101 Uric Acid Calcium 9.1 Magnesium 1.8 Total Bilirubin 0.8 Direct Bilirubin 0.2 GGT AST 76 H D ALT 84 H Alkaline Phosphatase 86 Troponin I 0.04 Total Protein 6.7 Albumin 3.9 Globulin 2.8 Albumin/Globulin Ratio 1.4 Triglycerides 73 Cholesterol 189 LDL Cholesterol Direct 70 HDL Cholesterol 101 H Procalcitonin Free T4 0.97 Thyroxine (T4) 5.8 TSH 3rd Generation 2.85 Arterial Blood Potassium 12/17/17 12/17/17 12/17/17 03:35 06:00 06:00 WBC RBC Hgb Hct MCV MCH MCHC RDW Plt Count MPV Gran % Lymph % (Auto) [place] % (Auto) Eos % (Auto) Baso % (Auto) Gran # Lymph # (Auto) [place] # (Auto) Eos # (Auto) Baso # (Auto) PT 13.6 H INR 1.18 H APTT 23.2 L pCO2 pO2 HCO3 ABG pH ABG Total CO2 ABG O2 Saturation ABG O2 Content ABG Base Excess ABG Hemoglobin ABG Carboxyhemoglobin POC ABG HHb (Measured) ABG Methemoglobin ABG O2 Capacity ABG Potassium Hgb O2 Saturation Glucose Lactate FiO2 Sodium Potassium Chloride Carbon Dioxide Anion Gap BUN Creatinine Est GFR ( Amer) Est GFR (Non-Af Amer) POC Glucose (mg/dL) 89 Random Glucose Uric Acid Calcium Magnesium Total Bilirubin Direct Bilirubin GGT 61 AST ALT Alkaline Phosphatase Troponin I Total Protein Albumin Globulin Albumin/Globulin Ratio Triglycerides Cholesterol LDL Cholesterol Direct HDL Cholesterol Procalcitonin Free T4 Thyroxine (T4) TSH 3rd Generation Arterial Blood Potassium 12/17/17 12/17/17 06:01 09:00 WBC RBC Hgb Hct MCV MCH MCHC RDW Plt Count MPV Gran % Lymph % (Auto) [place] % (Auto) Eos % (Auto) Baso % (Auto) Gran # Lymph # (Auto) [place] # (Auto) Eos # (Auto) Baso # (Auto) PT INR APTT pCO2 30 L 65 H pO2 212.0 H 127.0 H HCO3 33.0 H 37.6 H ABG pH 7.65 H* 7.37 ABG Total CO2 33.9 H 39.6 H ABG O2 Saturation 99.8 H 99.9 H ABG O2 Content 15.9 ABG Base Excess 12.1 H 10.1 H ABG Hemoglobin 11.5 L ABG Carboxyhemoglobin 1.7 H POC ABG HHb (Measured) 0.1 ABG Methemoglobin 1.4 ABG O2 Capacity 15.9 L ABG Potassium 3.1 L Hgb O2 Saturation 96.8 Glucose 96 Lactate 1.3 FiO2 50.0 35.0 Sodium 139.0 Potassium Chloride 104.0 Carbon Dioxide Anion Gap BUN Creatinine Est GFR ( Amer) Est GFR (Non-Af Amer) POC Glucose (mg/dL) Random Glucose Uric Acid Calcium Magnesium Total Bilirubin Direct Bilirubin GGT AST ALT Alkaline Phosphatase Troponin I Total Protein Albumin Globulin Albumin/Globulin Ratio Triglycerides Cholesterol LDL Cholesterol Direct HDL Cholesterol Procalcitonin Free T4 Thyroxine (T4) TSH 3rd Generation Arterial Blood Potassium 3.1 L EKG/Cardiology Studies: Cardiology / EKG Studies 12/16/17 12:13 ELECTROCARDIOGRAM Routine Reason For Exam: RESP. FAILURE 12/17/17 06:00 EKG [ELECTROCARDIOGRAM] DAILY Comment: Reason For Exam: RESP FAILURE 12/18/17 06:00 EKG [ELECTROCARDIOGRAM] DAILY Comment: Reason For Exam: RESP FAILURE 12/19/17 06:00 EKG [ELECTROCARDIOGRAM] DAILY Comment: Reason For Exam: RESP FAILURE Review of Systems - Review of Systems Systems not reviewed;Unavailable: Intubated Critical Care Progress Note - Nutrition Nutrition: Nutrition Category Date Time Status NPO Diet [DIET] Diets 12/16/17 Dinner Ordered Assessment/Plan - Assessment and Plan (Free Text) Assessment: This is a 72 yo AA F with PMH of COPD (with prior intubations for exacerbations) , asthma, HTN, and pulmonary HTN who presented to [facility] with worsening shortness of breath, found to be in hypercarbic respiratory failure, failing Bipap in ED, then intubated and placed on mechanical ventilation. Currently on sedation vacation and pressure support trial. Plan: Neuro: -now on sedation vacation, now awake and moderately alert -following some commands and moving limbs sporadically, no focal deficit appreciated -maintain normothermia; fever of 101F overnight Cardio: -RRR, hemodynamically stable -hx diastolic heart failure, BNP 5130, Cardio following, appreciate all recs -Lovenox for DVT ppx -trops 0.4 x3 Pulm: -covered empirically for PNA with Rocephin, Doxy added as per PMD -procal ordered, pending, cultures pending -solumedrol q8, xopenex q4 and q2 prn -intubated, tolerating pressure support trial well, but Pulm wants to defer extubation at this time due to fevers overnight -Pulm consulted, appreciate their recs GI: -NPO due to intubation -Protonix for GI ppx -LFTs improved today Renal: -monitor and replete electrolytes as needed -Cr stable at 0.7 Heme: -Hgb stable at 11.9 -Lovenox for DVT ppx ID: -empirically covered for possible PNA with rocephin, Doxy added as per PMD -pending procal and cultures Dispo: ICU, on sedation vacation and pressure support trial, pending extubation FEN: NPO Access: Peripheral IVs Consults: Cardio, Pulm Ppx: protonix for GI, Lovenox for DVT Patient seen, reviewed, examined with attending, Dr. Modi <Sheldon Modi - Last Filed: 12/17/17 12:52> CCU Objective - Vital Signs / Intake & Output Vital Signs (Last 4 hours): Vital Signs Temp 12/17/17 10:00 99.3 F 12/17/17 09:30 99.7 F H Intake and Output (Last 8hrs): Intake & Output 12/16/17 12/17/17 12/17/17 22:59 06:59 14:59 Intake Total 49 Balance 49 Intake: IV 49 - Medications Active Medications: Active Medications Generic Name Dose Route Start Last Admin Trade Name Freq PRN Reason Stop Dose Admin Acetaminophen 650 mg 12/16/17 19:09 12/17/17 08:30 Tylenol 650 Mg Supp RC 650 mg Q6H PRN Administration TEMP>=99.5F Enoxaparin Sodium 40 mg 12/17/17 10:00 12/17/17 09:30 Lovenox SC 40 mg DAILY KRISTINE Administration Protocol Ceftriaxone Sodium 1 gm in 100 mls @ 100 mls/hr 12/16/17 15:30 12/17/17 10:26 Rocephin 1 Gram Ivpb IVPB 100 mls/hr DAILY KRISTINE Administration Protocol Fentanyl Citrate 1,000 mcg in 100 mls @ 2 mls/hr 12/16/17 16:03 12/17/17 08: 05 Fentanyl Citrate/Sodium Chloride 1 Mg/100 Ml IV 0 mcg/hr .Q24H PRN 0 mls/hr TITRATE PER MD ORDER Titration Protocol 20 MCG/HR Midazolam 100 mg/100ml in NS 100 mg in 100 mls @ 1 mls/hr 12/16/17 16:02 08:05 Midazolam 100 Mg/100ml In Ns IV 0 mg/hr .Q24H PRN 0 mls/hr Sedation Titration Protocol 1 MG/HR Doxycycline Hyclate 100 mg/ 100 mls @ 100 mls/hr 12/16/17 22:00 12/17/17 09: 27 Sodium Chloride IVPB 100 mls/hr Q12 KRISTINE Administration Protocol Potassium Chloride 20 meq in 100 mls @ 50 mls/hr 12/17/17 12:01 Potassium Chloride 20 Meq/100 Ml IVPB 12/17/17 14:00 ONCE ONE Levalbuterol HCl 0.63 mg 12/16/17 15:37 Xopenex IH Q2 PRN Shortness of Breath Levalbuterol HCl 0.63 mg 12/16/17 15:45 12/17/17 11:07 Xopenex IH 0.63 mg Q4H KRISTINE Administration Methylprednisolone 40 mg 12/16/17 20:00 12/17/17 12:16 Solu-Medrol IVP 40 mg Q8H KRISTINE Administration Ondansetron HCl 4 mg 12/16/17 19:09 Zofran Inj IVP Q4H PRN Nausea/Vomiting Pantoprazole Sodium 40 mg 12/16/17 18:00 12/17/17 09:31 Protonix Inj IVP 40 mg BID KRISTINE Administration - Patient Studies Lab Studies: Lab Studies 12/17/17 12/17/17 12/17/17 Range/Units 11:40 09:00 06:01 WBC (4.5-11.0) 10^3/ul RBC (3.5-6.1) 10^6/uL Hgb (12.0-16.0) g/dL Hct (36.0-48.0) % MCV (80.0-105.0) fl MCH (25.0-35.0) pg MCHC (31.0-37.0) g/dl RDW (11.5-14.5) % Plt Count (120.0-450.0) 10^3/uL MPV (7.0-11.0) fl Gran % (50.0-68.0) % Lymph % (Auto) (22.0-35.0) % [place] % (Auto) (1.0-6.0) % Eos % (Auto) (1.5-5.0) % Baso % (Auto) (0.0-3.0) % Gran # (1.4-6.5) Lymph # (Auto) (1.2-3.4) [place] # (Auto) (0.1-0.6) Eos # (Auto) (0.0-0.7) Baso # (Auto) (0.0-2.0) K/mm3 PT (9.4-12.5) SECONDS INR (0.93-1.08) APTT (25.1-36.5) Seconds pCO2 65 H 30 L (35-45) mm/Hg pO2 127.0 H 212.0 H (80-100) mm/Hg HCO3 37.6 H 33.0 H (21-28) mmol/L ABG pH 7.37 7.65 H* (7.35-7.45) ABG Total CO2 39.6 H 33.9 H (22-28) mmol.L ABG O2 Saturation 99.9 H 99.8 H (95-98) % ABG O2 Content 15.9 (15-23) ML/dl ABG Base Excess 10.1 H 12.1 H (-2.0-3.0) mmol/L ABG Hemoglobin 11.5 L (11.7-17.4) g/dL ABG Carboxyhemoglobin 1.7 H (0.5-1.5) % POC ABG HHb (Measured) 0.1 (0-5) % ABG Methemoglobin 1.4 (0.0-3.0) % ABG O2 Capacity 15.9 L (16-24) mL/dl ABG Potassium 3.1 L (3.6-5.2) mmol/L Hgb O2 Saturation 96.8 (95.0-98.0) % Glucose 96 (65-105) mg/dl Lactate 1.3 (0.7-2.1) mmol/L FiO2 35.0 50.0 % Sodium 139.0 (132-148) mmol/L Potassium (3.6-5.0) mmol/L Chloride 104.0 (98-107) mmol/L Carbon Dioxide (21-33) mmol/L Anion Gap (10-20) BUN (7-21) mg/dL Creatinine (0.7-1.2) mg/dl Est GFR ( Amer) Est GFR (Non-Af Amer) POC Glucose (mg/dL) 106 (65-110) mg/dL Random Glucose (70-110) mg/dL Uric Acid (2.5-6.2) mg/dL Calcium (8.4-10.5) mg/dL Magnesium (1.7-2.2) mg/dL Total Bilirubin (0.2-1.3) mg/dL Direct Bilirubin (0.0-0.4) mg/dL GGT (8-78) U/L AST (14-36) U/L ALT (7-56) U/L Alkaline Phosphatase (38-126) U/L Troponin I ng/mL Total Protein (5.8-8.3) g/dL Albumin (3.0-4.8) g/dL Globulin gm/dL Albumin/Globulin Ratio (1.1-1.8) Triglycerides (35-160) mg/dL Cholesterol (130-200) mg/dL LDL Cholesterol Direct (0-129) mg/dL HDL Cholesterol (29-60) mg/dL Procalcitonin (0.19-0.49) NG/ML Free T4 (0.78-2.19) ng/dL Thyroxine (T4) (5.5-11.0) ug/dL TSH 3rd Generation (0.46-4.68) mIU/mL Arterial Blood Potassium 3.1 L (3.6-5.2) mmol/L 12/17/17 12/17/17 12/17/17 Range/Units 06:00 06:00 03:35 WBC (4.5-11.0) 10^3/ul RBC (3.5-6.1) 10^6/uL Hgb (12.0-16.0) g/dL Hct (36.0-48.0) % MCV (80.0-105.0) fl MCH (25.0-35.0) pg MCHC (31.0-37.0) g/dl RDW (11.5-14.5) % Plt Count (120.0-450.0) 10^3/uL MPV (7.0-11.0) fl Gran % (50.0-68.0) % Lymph % (Auto) (22.0-35.0) % [place] % (Auto) (1.0-6.0) % Eos % (Auto) (1.5-5.0) % Baso % (Auto) (0.0-3.0) % Gran # (1.4-6.5) Lymph # (Auto) (1.2-3.4) [place] # (Auto) (0.1-0.6) Eos # (Auto) (0.0-0.7) Baso # (Auto) (0.0-2.0) K/mm3 PT 13.6 H (9.4-12.5) SECONDS INR 1.18 H (0.93-1.08) APTT 23.2 L (25.1-36.5) Seconds pCO2 (35-45) mm/Hg pO2 (80-100) mm/Hg HCO3 (21-28) mmol/L ABG pH (7.35-7.45) ABG Total CO2 (22-28) mmol.L ABG O2 Saturation (95-98) % ABG O2 Content (15-23) ML/dl ABG Base Excess (-2.0-3.0) mmol/L ABG Hemoglobin (11.7-17.4) g/dL ABG Carboxyhemoglobin (0.5-1.5) % POC ABG HHb (Measured) (0-5) % ABG Methemoglobin (0.0-3.0) % ABG O2 Capacity (16-24) mL/dl ABG Potassium (3.6-5.2) mmol/L Hgb O2 Saturation (95.0-98.0) % Glucose (65-105) mg/dl Lactate (0.7-2.1) mmol/L FiO2 % Sodium (132-148) mmol/L Potassium (3.6-5.0) mmol/L Chloride (98-107) mmol/L Carbon Dioxide (21-33) mmol/L Anion Gap (10-20) BUN (7-21) mg/dL Creatinine (0.7-1.2) mg/dl Est GFR ( Amer) Est GFR (Non-Af Amer) POC Glucose (mg/dL) 89 (65-110) mg/dL Random Glucose (70-110) mg/dL Uric Acid (2.5-6.2) mg/dL Calcium (8.4-10.5) mg/dL Magnesium (1.7-2.2) mg/dL Total Bilirubin (0.2-1.3) mg/dL Direct Bilirubin (0.0-0.4) mg/dL GGT 61 (8-78) U/L AST (14-36) U/L ALT (7-56) U/L Alkaline Phosphatase (38-126) U/L Troponin I ng/mL Total Protein (5.8-8.3) g/dL Albumin (3.0-4.8) g/dL Globulin gm/dL Albumin/Globulin Ratio (1.1-1.8) Triglycerides (35-160) mg/dL Cholesterol (130-200) mg/dL LDL Cholesterol Direct (0-129) mg/dL HDL Cholesterol (29-60) mg/dL Procalcitonin (0.19-0.49) NG/ML Free T4 (0.78-2.19) ng/dL Thyroxine (T4) (5.5-11.0) ug/dL TSH 3rd Generation (0.46-4.68) mIU/mL Arterial Blood Potassium (3.6-5.2) mmol/L 12/17/17 12/17/17 12/17/17 Range/Units 03:35 03:35 03:35 WBC 5.2 (4.5-11.0) 10^3/ul RBC 3.98 (3.5-6.1) 10^6/uL Hgb 11.9 L (12.0-16.0) g/dL Hct 36.9 (36.0-48.0) % MCV 92.7 D (80.0-105.0) fl MCH 29.9 (25.0-35.0) pg MCHC 32.2 (31.0-37.0) g/dl RDW 14.0 (11.5-14.5) % Plt Count 126 (120.0-450.0) 10^3/uL MPV 11.5 H (7.0-11.0) fl Gran % 82.3 H (50.0-68.0) % Lymph % (Auto) 13.1 L (22.0-35.0) % [place] % (Auto) 4.6 (1.0-6.0) % Eos % (Auto) 0.0 L (1.5-5.0) % Baso % (Auto) 0.0 (0.0-3.0) % Gran # 4.26 (1.4-6.5) Lymph # (Auto) 0.7 L (1.2-3.4) [place] # (Auto) 0.2 (0.1-0.6) Eos # (Auto) 0.0 (0.0-0.7) Baso # (Auto) 0.00 (0.0-2.0) K/mm3 PT (9.4-12.5) SECONDS INR (0.93-1.08) APTT (25.1-36.5) Seconds pCO2 (35-45) mm/Hg pO2 (80-100) mm/Hg HCO3 (21-28) mmol/L ABG pH (7.35-7.45) ABG Total CO2 (22-28) mmol.L ABG O2 Saturation (95-98) % ABG O2 Content (15-23) ML/dl ABG Base Excess (-2.0-3.0) mmol/L ABG Hemoglobin (11.7-17.4) g/dL ABG Carboxyhemoglobin (0.5-1.5) % POC ABG HHb (Measured) (0-5) % ABG Methemoglobin (0.0-3.0) % ABG O2 Capacity (16-24) mL/dl ABG Potassium (3.6-5.2) mmol/L Hgb O2 Saturation (95.0-98.0) % Glucose (65-105) mg/dl Lactate (0.7-2.1) mmol/L FiO2 % Sodium 143 (132-148) mmol/L Potassium 3.6 (3.6-5.0) mmol/L Chloride 98 (98-107) mmol/L Carbon Dioxide 34 H (21-33) mmol/L Anion Gap 15 (10-20) BUN 21 (7-21) mg/dL Creatinine 0.7 (0.7-1.2) mg/dl Est GFR ( Amer) > 60 Est GFR (Non-Af Amer) > 60 POC Glucose (mg/dL) (65-110) mg/dL Random Glucose 101 (70-110) mg/dL Uric Acid (2.5-6.2) mg/dL Calcium 9.1 (8.4-10.5) mg/dL Magnesium 1.8 (1.7-2.2) mg/dL Total Bilirubin 0.8 (0.2-1.3) mg/dL Direct Bilirubin 0.2 (0.0-0.4) mg/dL GGT (8-78) U/L AST 76 H D (14-36) U/L ALT 84 H (7-56) U/L Alkaline Phosphatase 86 (38-126) U/L Troponin I 0.04 ng/mL Total Protein 6.7 (5.8-8.3) g/dL Albumin 3.9 (3.0-4.8) g/dL Globulin 2.8 gm/dL Albumin/Globulin Ratio 1.4 (1.1-1.8) Triglycerides 73 (35-160) mg/dL Cholesterol 189 (130-200) mg/dL LDL Cholesterol Direct 70 (0-129) mg/dL HDL Cholesterol 101 H (29-60) mg/dL Procalcitonin (0.19-0.49) NG/ML Free T4 0.97 (0.78-2.19) ng/dL Thyroxine (T4) 5.8 (5.5-11.0) ug/dL TSH 3rd Generation 2.85 (0.46-4.68) mIU/mL Arterial Blood Potassium (3.6-5.2) mmol/L 12/17/17 12/16/17 12/16/17 Range/Units 00:08 23:28 20:09 WBC (4.5-11.0) 10^3/ul RBC (3.5-6.1) 10^6/uL Hgb (12.0-16.0) g/dL Hct (36.0-48.0) % MCV (80.0-105.0) fl MCH (25.0-35.0) pg MCHC (31.0-37.0) g/dl RDW (11.5-14.5) % Plt Count (120.0-450.0) 10^3/uL MPV (7.0-11.0) fl Gran % (50.0-68.0) % Lymph % (Auto) (22.0-35.0) % [place] % (Auto) (1.0-6.0) % Eos % (Auto) (1.5-5.0) % Baso % (Auto) (0.0-3.0) % Gran # (1.4-6.5) Lymph # (Auto) (1.2-3.4) [place] # (Auto) (0.1-0.6) Eos # (Auto) (0.0-0.7) Baso # (Auto) (0.0-2.0) K/mm3 PT (9.4-12.5) SECONDS INR (0.93-1.08) APTT (25.1-36.5) Seconds pCO2 (35-45) mm/Hg pO2 (80-100) mm/Hg HCO3 (21-28) mmol/L ABG pH (7.35-7.45) ABG Total CO2 (22-28) mmol.L ABG O2 Saturation (95-98) % ABG O2 Content (15-23) ML/dl ABG Base Excess (-2.0-3.0) mmol/L ABG Hemoglobin (11.7-17.4) g/dL ABG Carboxyhemoglobin (0.5-1.5) % POC ABG HHb (Measured) (0-5) % ABG Methemoglobin (0.0-3.0) % ABG O2 Capacity (16-24) mL/dl ABG Potassium (3.6-5.2) mmol/L Hgb O2 Saturation (95.0-98.0) % Glucose (65-105) mg/dl Lactate (0.7-2.1) mmol/L FiO2 % Sodium (132-148) mmol/L Potassium (3.6-5.0) mmol/L Chloride (98-107) mmol/L Carbon Dioxide (21-33) mmol/L Anion Gap (10-20) BUN (7-21) mg/dL Creatinine (0.7-1.2) mg/dl Est GFR ( Amer) Est GFR (Non-Af Amer) POC Glucose (mg/dL) 109 123 H (65-110) mg/dL Random Glucose (70-110) mg/dL Uric Acid (2.5-6.2) mg/dL Calcium (8.4-10.5) mg/dL Magnesium (1.7-2.2) mg/dL Total Bilirubin (0.2-1.3) mg/dL Direct Bilirubin (0.0-0.4) mg/dL GGT (8-78) U/L AST (14-36) U/L ALT (7-56) U/L Alkaline Phosphatase (38-126) U/L Troponin I 0.04 ng/mL Total Protein (5.8-8.3) g/dL Albumin (3.0-4.8) g/dL Globulin gm/dL Albumin/Globulin Ratio (1.1-1.8) Triglycerides (35-160) mg/dL Cholesterol (130-200) mg/dL LDL Cholesterol Direct (0-129) mg/dL HDL Cholesterol (29-60) mg/dL Procalcitonin (0.19-0.49) NG/ML Free T4 (0.78-2.19) ng/dL Thyroxine (T4) (5.5-11.0) ug/dL TSH 3rd Generation (0.46-4.68) mIU/mL Arterial Blood Potassium (3.6-5.2) mmol/L 12/16/17 12/16/17 12/16/17 Range/Units 19:56 17:00 15:06 WBC (4.5-11.0) 10^3/ul RBC (3.5-6.1) 10^6/uL Hgb (12.0-16.0) g/dL Hct (36.0-48.0) % MCV (80.0-105.0) fl MCH (25.0-35.0) pg MCHC (31.0-37.0) g/dl RDW (11.5-14.5) % Plt Count (120.0-450.0) 10^3/uL MPV (7.0-11.0) fl Gran % (50.0-68.0) % Lymph % (Auto) (22.0-35.0) % [place] % (Auto) (1.0-6.0) % Eos % (Auto) (1.5-5.0) % Baso % (Auto) (0.0-3.0) % Gran # (1.4-6.5) Lymph # (Auto) (1.2-3.4) [place] # (Auto) (0.1-0.6) Eos # (Auto) (0.0-0.7) Baso # (Auto) (0.0-2.0) K/mm3 PT (9.4-12.5) SECONDS INR (0.93-1.08) APTT (25.1-36.5) Seconds pCO2 128 H* (35-45) mm/Hg pO2 109.0 H (80-100) mm/Hg HCO3 40.7 H* (21-28) mmol/L ABG pH 7.11 L* (7.35-7.45) ABG Total CO2 44.6 H (22-28) mmol.L ABG O2 Saturation 99.2 H (95-98) % ABG O2 Content 16.4 (15-23) ML/dl ABG Base Excess 7.2 H (-2.0-3.0) mmol/L ABG Hemoglobin 12.1 (11.7-17.4) g/dL ABG Carboxyhemoglobin 2.5 H (0.5-1.5) % POC ABG HHb (Measured) 0.8 (0-5) % ABG Methemoglobin 1.0 (0.0-3.0) % ABG O2 Capacity 16.5 (16-24) mL/dl ABG Potassium (3.6-5.2) mmol/L Hgb O2 Saturation 95.6 (95.0-98.0) % Glucose (65-105) mg/dl Lactate (0.7-2.1) mmol/L FiO2 40.0 % Sodium (132-148) mmol/L Potassium (3.6-5.0) mmol/L Chloride (98-107) mmol/L Carbon Dioxide (21-33) mmol/L Anion Gap (10-20) BUN (7-21) mg/dL Creatinine (0.7-1.2) mg/dl Est GFR ( Amer) Est GFR (Non-Af Amer) POC Glucose (mg/dL) (65-110) mg/dL Random Glucose (70-110) mg/dL Uric Acid 3.1 (2.5-6.2) mg/dL Calcium (8.4-10.5) mg/dL Magnesium (1.7-2.2) mg/dL Total Bilirubin (0.2-1.3) mg/dL Direct Bilirubin (0.0-0.4) mg/dL GGT (8-78) U/L AST (14-36) U/L ALT (7-56) U/L Alkaline Phosphatase (38-126) U/L Troponin I 0.04 D ng/mL Total Protein (5.8-8.3) g/dL Albumin (3.0-4.8) g/dL Globulin gm/dL Albumin/Globulin Ratio (1.1-1.8) Triglycerides (35-160) mg/dL Cholesterol (130-200) mg/dL LDL Cholesterol Direct (0-129) mg/dL HDL Cholesterol (29-60) mg/dL Procalcitonin 0.05 L (0.19-0.49) NG/ML Free T4 (0.78-2.19) ng/dL Thyroxine (T4) (5.5-11.0) ug/dL TSH 3rd Generation (0.46-4.68) mIU/mL Arterial Blood Potassium (3.6-5.2) mmol/L Laboratory Results - last 24 hr 12/16/17 12/16/17 12/16/17 15:06 17:00 19:56 WBC RBC Hgb Hct MCV MCH MCHC RDW Plt Count MPV Gran % Lymph % (Auto) [place] % (Auto) Eos % (Auto) Baso % (Auto) Gran # Lymph # (Auto) [place] # (Auto) Eos # (Auto) Baso # (Auto) PT INR APTT pCO2 128 H* pO2 109.0 H HCO3 40.7 H* ABG pH 7.11 L* ABG Total CO2 44.6 H ABG O2 Saturation 99.2 H ABG O2 Content 16.4 ABG Base Excess 7.2 H ABG Hemoglobin 12.1 ABG Carboxyhemoglobin 2.5 H POC ABG HHb (Measured) 0.8 ABG Methemoglobin 1.0 ABG O2 Capacity 16.5 ABG Potassium Hgb O2 Saturation 95.6 Glucose Lactate FiO2 40.0 Sodium Potassium Chloride Carbon Dioxide Anion Gap BUN Creatinine Est GFR ( Amer) Est GFR (Non-Af Amer) POC Glucose (mg/dL) Random Glucose Uric Acid 3.1 Calcium Magnesium Total Bilirubin Direct Bilirubin GGT AST ALT Alkaline Phosphatase Troponin I 0.04 D Total Protein Albumin Globulin Albumin/Globulin Ratio Triglycerides Cholesterol LDL Cholesterol Direct HDL Cholesterol Procalcitonin 0.05 L Free T4 Thyroxine (T4) TSH 3rd Generation Arterial Blood Potassium 12/16/17 12/16/17 12/17/17 20:09 23:28 00:08 WBC RBC Hgb Hct MCV MCH MCHC RDW Plt Count MPV Gran % Lymph % (Auto) [place] % (Auto) Eos % (Auto) Baso % (Auto) Gran # Lymph # (Auto) [place] # (Auto) Eos # (Auto) Baso # (Auto) PT INR APTT pCO2 pO2 HCO3 ABG pH ABG Total CO2 ABG O2 Saturation ABG O2 Content ABG Base Excess ABG Hemoglobin ABG Carboxyhemoglobin POC ABG HHb (Measured) ABG Methemoglobin ABG O2 Capacity ABG Potassium Hgb O2 Saturation Glucose Lactate FiO2 Sodium Potassium Chloride Carbon Dioxide Anion Gap BUN Creatinine Est GFR ( Amer) Est GFR (Non-Af Amer) POC Glucose (mg/dL) 123 H 109 Random Glucose Uric Acid Calcium Magnesium Total Bilirubin Direct Bilirubin GGT AST ALT Alkaline Phosphatase Troponin I 0.04 Total Protein Albumin Globulin Albumin/Globulin Ratio Triglycerides Cholesterol LDL Cholesterol Direct HDL Cholesterol Procalcitonin Free T4 Thyroxine (T4) TSH 3rd Generation Arterial Blood Potassium 12/17/17 12/17/17 12/17/17 03:35 03:35 03:35 WBC 5.2 RBC 3.98 Hgb 11.9 L Hct 36.9 MCV 92.7 D MCH 29.9 MCHC 32.2 RDW 14.0 Plt Count 126 MPV 11.5 H Gran % 82.3 H Lymph % (Auto) 13.1 L [place] % (Auto) 4.6 Eos % (Auto) 0.0 L Baso % (Auto) 0.0 Gran # 4.26 Lymph # (Auto) 0.7 L [place] # (Auto) 0.2 Eos # (Auto) 0.0 Baso # (Auto) 0.00 PT INR APTT pCO2 pO2 HCO3 ABG pH ABG Total CO2 ABG O2 Saturation ABG O2 Content ABG Base Excess ABG Hemoglobin ABG Carboxyhemoglobin POC ABG HHb (Measured) ABG Methemoglobin ABG O2 Capacity ABG Potassium Hgb O2 Saturation Glucose Lactate FiO2 Sodium 143 Potassium 3.6 Chloride 98 Carbon Dioxide 34 H Anion Gap 15 BUN 21 Creatinine 0.7 Est GFR ( Amer) > 60 Est GFR (Non-Af Amer) > 60 POC Glucose (mg/dL) Random Glucose 101 Uric Acid Calcium 9.1 Magnesium 1.8 Total Bilirubin 0.8 Direct Bilirubin 0.2 GGT AST 76 H D ALT 84 H Alkaline Phosphatase 86 Troponin I 0.04 Total Protein 6.7 Albumin 3.9 Globulin 2.8 Albumin/Globulin Ratio 1.4 Triglycerides 73 Cholesterol 189 LDL Cholesterol Direct 70 HDL Cholesterol 101 H Procalcitonin Free T4 0.97 Thyroxine (T4) 5.8 TSH 3rd Generation 2.85 Arterial Blood Potassium 12/17/17 12/17/17 12/17/17 03:35 06:00 06:00 WBC RBC Hgb Hct MCV MCH MCHC RDW Plt Count MPV Gran % Lymph % (Auto) [place] % (Auto) Eos % (Auto) Baso % (Auto) Gran # Lymph # (Auto) [place] # (Auto) Eos # (Auto) Baso # (Auto) PT 13.6 H INR 1.18 H APTT 23.2 L pCO2 pO2 HCO3 ABG pH ABG Total CO2 ABG O2 Saturation ABG O2 Content ABG Base Excess ABG Hemoglobin ABG Carboxyhemoglobin POC ABG HHb (Measured) ABG Methemoglobin ABG O2 Capacity ABG Potassium Hgb O2 Saturation Glucose Lactate FiO2 Sodium Potassium Chloride Carbon Dioxide Anion Gap BUN Creatinine Est GFR ( Amer) Est GFR (Non-Af Amer) POC Glucose (mg/dL) 89 Random Glucose Uric Acid Calcium Magnesium Total Bilirubin Direct Bilirubin GGT 61 AST ALT Alkaline Phosphatase Troponin I Total Protein Albumin Globulin Albumin/Globulin Ratio Triglycerides Cholesterol LDL Cholesterol Direct HDL Cholesterol Procalcitonin Free T4 Thyroxine (T4) TSH 3rd Generation Arterial Blood Potassium 12/17/17 12/17/17 12/17/17 06:01 09:00 11:40 WBC RBC Hgb Hct MCV MCH MCHC RDW Plt Count MPV Gran % Lymph % (Auto) [place] % (Auto) Eos % (Auto) Baso % (Auto) Gran # Lymph # (Auto) [place] # (Auto) Eos # (Auto) Baso # (Auto) PT INR APTT pCO2 30 L 65 H pO2 212.0 H 127.0 H HCO3 33.0 H 37.6 H ABG pH 7.65 H* 7.37 ABG Total CO2 33.9 H 39.6 H ABG O2 Saturation 99.8 H 99.9 H ABG O2 Content 15.9 ABG Base Excess 12.1 H 10.1 H ABG Hemoglobin 11.5 L ABG Carboxyhemoglobin 1.7 H POC ABG HHb (Measured) 0.1 ABG Methemoglobin 1.4 ABG O2 Capacity 15.9 L ABG Potassium 3.1 L Hgb O2 Saturation 96.8 Glucose 96 Lactate 1.3 FiO2 50.0 35.0 Sodium 139.0 Potassium Chloride 104.0 Carbon Dioxide Anion Gap BUN Creatinine Est GFR ( Amer) Est GFR (Non-Af Amer) POC Glucose (mg/dL) 106 Random Glucose Uric Acid Calcium Magnesium Total Bilirubin Direct Bilirubin GGT AST ALT Alkaline Phosphatase Troponin I Total Protein Albumin Globulin Albumin/Globulin Ratio Triglycerides Cholesterol LDL Cholesterol Direct HDL Cholesterol Procalcitonin Free T4 Thyroxine (T4) TSH 3rd Generation Arterial Blood Potassium 3.1 L EKG/Cardiology Studies: Cardiology / EKG Studies 12/16/17 12:13 EKG [ELECTROCARDIOGRAM] Stat Comment: Reason For Exam: MEDICAL CLEARANCE ELECTROCARDIOGRAM Routine Reason For Exam: RESP. FAILURE 12/17/17 06:00 EKG [ELECTROCARDIOGRAM] DAILY Comment: Reason For Exam: RESP FAILURE 12/18/17 06:00 EKG [ELECTROCARDIOGRAM] DAILY Comment: Reason For Exam: RESP FAILURE 12/19/17 06:00 EKG [ELECTROCARDIOGRAM] DAILY Comment: Reason For Exam: RESP FAILURE Critical Care Progress Note - Nutrition Nutrition: Nutrition Category Date Time Status NPO Diet [DIET] Diets 12/16/17 Dinner Ordered Assessment/Plan - Assessment and Plan (Free Text) Plan: Patient seen and examined on rounds with resident, agree with note with following additions/exceptions: Patient is 72yo female with PMhx COPD (with prior intubations for exacerbations) , asthma, HTN, and pulmonary HTN, a/dw hypercapnic resp failure. Currently intubated, off sedation, placed on pressure support, doing well overall. ABG noted, with chronic resp acidosis, compensated COPD exacerbation Resp failure Pulm HTN rule out PNA Fever Recommend: - cont with vent support, low tidal vol ventilation, daily CPAP trial - pulmonary follow up - Solumedrol 40mg IV Q8hr - Lorna Richards DC Doxy - Brittononebs PRN - follow up cultures, Urine Legionella, Strep - check Procal - BP control - gentle IVF hydration - GI ppx - DVT ppx - Monitor in MICU Critical care time 35 minutes
--- NOTE | 2017-12-17 12:52 | CP.PCM.PN ---
<Venancio Olivera Eli - Last Filed: 12/17/17 12:33> Subjective - Date & Time of Evaluation Date of Evaluation: 12/17/17 Time of Evaluation: 08:00 - Subjective Subjective: Medicine progress note: Dr. Rodríguez Patient seen and examined at bedside. Patient did have a fever overnight, but no other acute overnight events. Patient presents no new complaints and states that she is feeling better. Objective - Vital Signs/Intake and Output Vital Signs (last 24 hours): Temp Pulse Resp BP Pulse Ox 99.3 F 117 H 38 H 104/54 L 96 12/17/17 10:00 12/17/17 06:10 12/17/17 08:07 12/17/17 05:00 12/17/17 08:07 Intake and Output: 12/17/17 12/17/17 06:59 18:59 Intake Total 49 Balance 49 - Medications Medications: Current Medications Acetaminophen (Tylenol 650 Mg Supp) 650 mg RC Q6H PRN PRN Reason: TEMP>=99.5F Last Admin: 12/17/17 08:30 Dose: 650 mg Enoxaparin Sodium (Lovenox) 40 mg SC DAILY KRISTINE PRN Reason: Protocol Last Admin: 12/17/17 09:30 Dose: 40 mg Ceftriaxone Sodium (Rocephin 1 Gram Ivpb) 1 gm in 100 mls @ 100 mls/hr IVPB DAILY KRISTINE PRN Reason: Protocol Last Admin: 12/17/17 10:26 Dose: 100 mls/hr Fentanyl Citrate (Fentanyl Citrate/Sodium Chloride 1 Mg/100 Ml) 1,000 mcg in 100 mls @ 2 mls/hr IV .Q24H PRN; Protocol; 20 MCG/HR PRN Reason: TITRATE PER MD ORDER Last Titration: 12/17/17 08:05 Dose: 0 mcg/hr, 0 mls/hr Midazolam 100 mg/100ml in NS (Midazolam 100 Mg/100ml In Ns) 100 mg in 100 mls @ 1 mls/hr IV .Q24H PRN; Protocol; 1 MG/HR PRN Reason: Sedation Last Titration: 12/17/17 08:05 Dose: 0 mg/hr, 0 mls/hr Doxycycline Hyclate 100 mg/ (Sodium Chloride) 100 mls @ 100 mls/hr IVPB Q12 KRISTINE PRN Reason: Protocol Last Admin: 12/17/17 09:27 Dose: 100 mls/hr Potassium Chloride (Potassium Chloride 20 Meq/100 Ml) 20 meq in 100 mls @ 50 mls/hr IVPB ONCE ONE Stop: 12/17/17 14:00 Levalbuterol HCl (Xopenex) 0.63 mg IH Q2 PRN PRN Reason: Shortness of Breath Levalbuterol HCl (Xopenex) 0.63 mg IH Q4H [facility] Last Admin: 12/17/17 11:07 Dose: 0.63 mg Methylprednisolone (Solu-Medrol) 40 mg IVP Q8H [facility] Last Admin: 12/17/17 12:16 Dose: 40 mg Ondansetron HCl (Zofran Inj) 4 mg IVP Q4H PRN PRN Reason: Nausea/Vomiting Pantoprazole Sodium (Protonix Inj) 40 mg IVP BID [facility] Last Admin: 12/17/17 09:31 Dose: 40 mg - Labs Labs: 12/17/17 03:35 12/17/17 03:35 PT 13.6 SECONDS (9.4-12.5) H 12/17/17 06:00 INR 1.18 (0.93-1.08) H 12/17/17 06:00 APTT 23.2 Seconds (25.1-36.5) L 12/17/17 06:00 - Constitutional Appears: Well - Head Exam Head Exam: ATRAUMATIC, NORMAL INSPECTION, NORMOCEPHALIC - Eye Exam Eye Exam: EOMI, Normal appearance, PERRL Pupil Exam: NORMAL ACCOMODATION, PERRL - ENT Exam ENT Exam: Mucous Membranes Moist, Normal Exam - Neck Exam Neck Exam: Full ROM, Normal Inspection. absent: Lymphadenopathy - Respiratory Exam Respiratory Exam: Decreased Breath Sounds, Clear to Ausculation Bilateral, NORMAL BREATHING PATTERN - Cardiovascular Exam Cardiovascular Exam: Tachycardia, REGULAR RHYTHM, +S1, +S2, Murmur (Midsystolic murmur at LSB) - GI/Abdominal Exam GI & Abdominal Exam: Soft, Normal Bowel Sounds. absent: Tenderness - Extremities Exam Extremities Exam: Full ROM, Normal Capillary Refill, Normal Inspection. absent : Joint Swelling, Pedal Edema - Back Exam Back Exam: NORMAL INSPECTION - Neurological Exam Neurological Exam: Alert, Awake, CN II-XII Intact, Normal Gait, Oriented x3 - Psychiatric Exam Psychiatric exam: Normal Affect, Normal Mood - Skin Skin Exam: Dry, Intact, Normal Color, Warm Assessment and Plan - Assessment and Plan (Free Text) Assessment: 72 year old female with pertinent history of COPD, diastolic CHF and Asthma presents with shortness of breath. Patient ABG showed pCO2 of 104 then 128, with pH of 7.1. Patient's CXR does not show consolidation; two SIRS criteria are present. Of note, BNP was also elevated at 5100; ECHO from 12/2016 shows 66 % EF with LVH but normal LV function. But at this point, shortness of breath is most likely 2/2 COPD exacerbation. Patient is improving clinically and ABG shows normalizing pH despite elevated CO2 (likely 2/2 chronic COPD). Patient has no white count and at present has two SIRS criteria (tachycardia, fever), but tachycardia can be attributed to dyspnea. Plan Acute Hypercapneic Hypoxic Respiratory Failure - most likely 2/2 COPD Exacerbation - Xopenex, Solumedrol, Pulmicort, Azithro, Doxy, Rocephin - Patient intubated; Midazolam and Fentanyl discontinued. - Vent settings as per ICU Respiratory Acidosis - resolved - Treatment as above Fever - Patient is afebrile right now, on antibiotics; continue to monitor Diastolic Heart Failure - Cardiology consult: Dr. Parry - ECHO pending Chronic Anemia - H&H stable (11.9) - Past work up shows iron deficiency Prophylaxis - Protonix, Lovenox <Marcos,Garett U - Last Filed: 12/20/17 14:07> Objective - Vital Signs/Intake and Output Vital Signs (last 24 hours): Temp Pulse Resp BP Pulse Ox 98 F 80 36 H 157/84 H 100 12/20/17 04:00 12/20/17 06:20 12/20/17 06:10 12/20/17 06:00 12/20/17 06:20 Intake and Output: 12/20/17 12/20/17 06:59 18:59 Intake Total 320 Output Total 350 Balance -30 - Medications Medications: Current Medications Acetaminophen (Tylenol 650 Mg Supp) 650 mg RC Q6H PRN PRN Reason: TEMP>=99.5F Last Admin: 12/17/17 08:30 Dose: 650 mg Aspirin (Aspirin) 325 mg PO DAILY KRISTINE Last Admin: 06/02/18 10:07 Dose: 325 mg Atorvastatin Calcium (Lipitor) 10 mg PO DIN [facility] Last Admin: 12/19/17 16:42 Dose: 10 mg Doxycycline Hyclate (Doryx) 100 mg PO Q12 [facility] Last Admin: 12/20/17 10:07 Dose: 100 mg Enoxaparin Sodium (Lovenox) 40 mg SC DAILY [facility] PRN Reason: Protocol Last Admin: 12/20/17 10:08 Dose: 40 mg Ergocalciferol (Drisdol 50,000 Intl Units Cap) 1 cap PO Q7D [facility] Last Admin: 12/20/17 10:07 Dose: 1 cap Fentanyl Citrate (Fentanyl Citrate/Sodium Chloride 1 Mg/100 Ml) 1,000 mcg in 100 mls @ 2 mls/hr IV .Q24H PRN; Protocol; 20 MCG/HR PRN Reason: TITRATE PER MD ORDER Last Titration: 12/17/17 08:05 Dose: 0 mcg/hr, 0 mls/hr Midazolam 100 mg/100ml in NS (Midazolam 100 Mg/100ml In Ns) 100 mg in 100 mls @ 1 mls/hr IV .Q24H PRN; Protocol; 1 MG/HR PRN Reason: Sedation Last Titration: 12/17/17 08:05 Dose: 0 mg/hr, 0 mls/hr Levalbuterol HCl (Xopenex) 0.63 mg IH Q2 PRN PRN Reason: Shortness of Breath Levalbuterol HCl (Xopenex) 0.63 mg IH Q6H [facility] Last Admin: 12/20/17 13:17 Dose: 0.63 mg Levothyroxine Sodium (Synthroid) 50 mcg PO DAILY [facility] Last Admin: 12/20/17 10:07 Dose: 50 mcg Methylprednisolone (Solu-Medrol) 30 mg IV Q12 [facility] Ondansetron HCl (Zofran Inj) 4 mg IVP Q4H PRN PRN Reason: Nausea/Vomiting Pantoprazole Sodium (Protonix Ec Tab) 40 mg PO 0600,1600 [facility] Last Admin: 12/20/17 05:10 Dose: 40 mg Polyethylene Glycol (Miralax) 17 gm PO DAILY [facility] Last Admin: 12/20/17 10:08 Dose: 17 gm - Labs Labs: 12/18/17 05:30 12/20/17 05:00 PT 13.6 SECONDS (9.4-12.5) H 12/17/17 06:00 INR 1.18 (0.93-1.08) H 12/17/17 06:00 APTT 23.2 Seconds (25.1-36.5) L 12/17/17 06:00 Attending/Attestation - Attestation I have personally seen and examined this patient.: Yes I have fully participated in the care of the patient.: Yes I have reviewed all pertinent clinical information, including history, physical exam and plan: Yes Notes (Text): Please see/read my dictated notes.
[2017-12-17 13:02] LABS: HEPATITIS B SURFACE AG Negative (NEGATIVE)
--- NOTE | 2017-12-17 13:03 | RAD ---
HISTORY: intubated, f/u COMPARISON: No prior. FINDINGS: LUNGS: No active pulmonary disease. PLEURA: No significant pleural effusion identified, no pneumothorax apparent. CARDIOVASCULAR: Normal. OSSEOUS STRUCTURES: No significant abnormalities. VISUALIZED UPPER ABDOMEN: Normal. OTHER FINDINGS: Endotracheal tube in satisfactory position IMPRESSION: No active disease.
[2017-12-17 13:08] LABS: HEPATITIS A IGM NEGATIVE (NEGATIVE); HEPATITIS B CORE AB NEGATIVE (NEGATIVE)
[2017-12-17 13:20] LABS: HEPATITIS C ANTIBODY NEGATIVE (NEGATIVE)
--- NOTE | 2017-12-17 13:27 | CON ---
DATE: 12/17/2017 CARDIOLOGY CONSULTATION HISTORY: The patient is a 72-year-old woman who presents with acute shortness of breath. She was intubated in the emergency room and brought up to the floor to the CCU. PAST MEDICAL HISTORY: Includes a history of bronchospasm, COPD. She has documented pulmonary hypertension on echocardiogram. Her stress test that was performed in 2017, revealed no ischemic changes. Ejection fraction was normal. There is [id number] mitral regurgitation as well as pulmonary hypertension on echocardiogram in the past. SOCIAL HISTORY: Former smoker. REVIEW OF SYSTEMS: A 14-point review of systems is reviewed in detail. Minimal answers were able to be gotten given that the patient is intubated, but the patient did not suffer chest pain. PHYSICAL EXAMINATION: VITAL SIGNS: The patient is on a ventilator. Blood pressure is 104/54, heart rate is in the 90s, temperature is 100.8. NECK: Negative JVD. LUNGS: No rales noted. HEART: Reveals S1, S2 with a 2/6 systolic ejection murmur. EXTREMITIES: Without edema. EKG shows normal sinus rhythm with diffuse ST-T changes and with PVCs. Troponin is indeterminate at 0.04. The ProBNP is elevated. LABORATORY DATA: BUN and creatinine are unremarkable. IMPRESSION: 1. Respiratory failure. 2. Chronic obstructive pulmonary disease. 3. History of mitral regurgitation. 4. History of pulmonary hypertension. 5. Acute systolic congestive heart failure. 6. Abnormal EKG. Given these findings, we will repeat an echocardiogram today. We will need to evaluate the status of her mitral valve. I agree with JANETH Kendrick. Once we are able to extubate the patient, we will need to consider ruling out an ischemic cardiac basis for her acute dyspnea. Marcelo Parry MD
--- NOTE | 2017-12-17 14:54 | CARD ---
APPROVED REPORT EXAM: Two-dimensional and M-mode echocardiogram with Doppler and color Doppler. INDICATION Congestive Heart Failure 2D DIMENSIONS Left Atrium (2D)5.6 (1.6-4.0cm)IVSd1.5 (0.7-1.1cm) LVDd4.6 (3.9-5.9cm)PWd1.4 (0.7-1.1cm) LVDs2.9 (2.5-4.0cm)FS (%) 38.0 % LVEF (%)68.2 (>50%) M-Mode DIMENSIONS Aortic Root2.20 (2.2-3.7cm)Aortic Cusp Exc.1.50 (1.5-2.0cm) Aortic Valve AoV Peak Jxanwqrv358.0cm/Joyce Peak GR.18mmHg Mitral Valve MV E Rvorkauj610.0cm/sMV A Erbwivcj391.0cm/sMV [id number] E/A ratio0.8MVA (PHT)1.52cm2 TDI E/Lateral E'0.0E/Medial E'0.0 Tricuspid Valve TR Peak [id number]/sRAP [id number] Peak Gr.22mmHg [id number] LEFT VENTRICLE The left ventricle is normal size. There is moderate concentric left ventricular hypertrophy. The left ventricular function is normal. The left ventricular ejection fraction is within the normal range. There is normal LV segmental wall motion. Transmitral Doppler flow pattern is Grade I-abnormal relaxation pattern. RIGHT VENTRICLE The right ventricle is normal size. There is normal right ventricular wall thickness. The right ventricular systolic function is normal. ATRIA The left atrium is moderately dilated. The right atrium size is normal. AORTIC VALVE The aortic valve is mildly to moderately sclerotic. No aortic regurgitation is present. MITRAL VALVE The mitral valve is moderately thickened. Mitral regurgitation is moderate. TRICUSPID VALVE There is trace tricuspid regurgitation. GREAT VESSELS The aortic root is normal in size. The IVC is normal in size and collapses >50% with inspiration. <Conclusion> The left ventricle is normal size. There is moderate concentric left ventricular hypertrophy. The left ventricular function is normal. The left ventricular ejection fraction is within the normal range. There is normal LV segmental wall motion. Transmitral Doppler flow pattern is Grade I-abnormal relaxation pattern. Mitral regurgitation is moderate.
--- NOTE | 2017-12-17 15:34 | PN ---
DATE: 12/17/2017 SUBJECTIVE: Patient is seen in CCU bed 3. Patient is intubated, on a ventilator, on pressure support. Patient is arousable to painful stimuli. Overnight nurses' notes were reviewed. Patient was attempted to be weaned according to the patient's nurse, but it was postponed because of pulmonary evaluation by Dr. Peacock. PHYSICAL EXAMINATION: VITAL SIGNS: T-max 100.8 down to 99.3. Telemetry shows sinus rhythm, sinus tach. Blood pressure 118/61, 104/54; respiration 20 per minute. O2 sat is 95%, 98%, 100%. HEENT: Head examination, normocephalic and atraumatic. HEENT examination shows pinkish conjunctivae. Anicteric sclerae. No oropharyngeal lesion. NECK: Positive thyromegaly noted. CHEST: Kyphosis. LUNGS: Shows improved air entry. Positive rhonchi, but no wheezing. CARDIOVASCULAR: Shows S1 and S2. Regular rhythm. ABDOMEN: Soft, protuberant. Positive bowel sounds. GENITALIA: Female. RECTAL: Examination deferred. EXTREMITIES: No pitting edema, no calf tenderness, no Mckenna's sign. NEUROLOGIC: Patient is arousable and responsive to painful stimuli. Gait examination not tested. MUSCULOSKELETAL: Shows a body mass index of 23. DIAGNOSTICS: On 12/17, WBC 5.2, hemoglobin and hematocrit 11.9 and 36.9, platelets 126. Granulocytes, 82% segs. Today morning, ABG, pH is now up to 7.37, pCO2 of 65, pO2 of 127, bicarb 38, saturation of 99.9% on 35% FiO2. Sodium 143, potassium 3.6, chloride 98, CO2 34, anion gap 15, BUN 21, creatinine 0.7, GFR greater than 60, glucose 101, calcium 9.1, magnesium 1.8. GGT 61, AST 76, ALT 84, troponin is 0.04. Cholesterol 189, HDL 101, LDL 70. Thyroid panel is within normal limit. EKG shows sinus rhythm with T-wave inversion I, aVL, V1 to V6. IMPRESSION AND PLAN: 1. Acute hypercarbic hypercapnic hypoxic ventilator-dependent respiratory failure with severe respiratory acidosis. 2. Resolving bronchospasm. 3. Fever of 100.8. 4. Mild normocytic anemia. 5. Granulocytosis. 6. Hypercarbia. 7. CO2 narcosis. 8. Transaminitis. 9. History of hypothyroidism. 10. Hypertensive cardiovascular disease with T-wave inversion I, aVL, V1 to V6. 11. Borderline hypokalemia. 1. Ventilator-dependent acute hypercarbic hypercapnic hypoxic respiratory failure with severe respiratory acidosis. 2. Bronchospasm. 3. Acute exacerbation of chronic obstructive pulmonary disease. 4. Normocytic anemia with granulocytosis. 5. Hypercarbia and hypercapnia. 6. Carbon dioxide narcosis. 7. Severe respiratory acidosis and hypoxemia. 8. Metabolic alkalosis. 9. Hyperglycemia. 10. Transaminitis. 11. Mild acute exacerbation of right-sided diastolic congestive heart failure with elevated BNP. 12. Indeterminate troponin. 13. Sinus tachycardia. 14. Left axis deviation. 15. Ventilator-dependent respiratory failure. 16. History of hypertension, hyperlipidemia, hypothyroidism, hypovitaminosis D. Plan at this time, I have met with the patient and patient's son at the bedside. Patient has been ordered patient will be continued on ICU and ventilator support until cleared by Pulmonary Cardiology. Patient is awaiting Cardiology evaluation. Patient had been ordered serial labs. Blood, urine and sputum cultures were ordered. CURRENT CONSULTATIONS: Cardiology, Pulmonary. CURRENT MEDICATIONS: Doxycycline 100 mg IV every 12, Lovenox 40 mg daily. Patient has been ordered potassium riders x1, Protonix 40 IV twice a day, Rocephin 1 g IV daily, Solu-Medrol 40 IV every 8, Tylenol suppository every 6 hours p.r.n. 650 mg for temperature greater than or equal to 99.5 or headache, Xopenex nebulizer every 4 hours [id number] every 12 p.r.n., Zofran 4 IV every 4. Patient is on pressure support with PEEP of 5 and FiO2 of 35, tidal volume 450. Patient is on SCD, ADRIANNA stockings. Echo with Doppler pending. Patient's condition, critical. Prognosis, guarded. Patient's family is aware. Dictated and electronically signed, not read. Garett Rodríguez MD MTDBrandy
--- NOTE | 2017-12-17 16:11 | CON ---
DATE: 12/17/2017 PULMONARY CONSULTATION The patient was seen and examined in Intensive Care Unit on a ventilator. Family is present during examination. She is receiving intravenous steroids, inhalation treatments with Xopenex and triple antibiotic therapy with ceftriaxone, doxycycline and azithromycin. HISTORY OF PRESENT ILLNESS: The patient came to the Emergency Room complaining of shortness of breath and cough over the last few days. She appeared to be weak and lethargic. Her arterial blood gas revealed severe respiratory acidosis with pCO2 over 100. In the process of treatment in the emergency room, the pH dropped to 7.11 and pCO2 increased over 120. This is probably due to administration of higher flows of oxygen at 40% FiO2. The patient required endotracheal intubation. REVIEW OF SYSTEMS: Conducted by reviewing all sources. Respiratory: See history of present illness. Cardiovascular: Positive for hyperlipidemia. Endocrine: History of hyperthyroidism and hypovitaminosis D. Hematologic: History of anemia. The rest of the systems were reviewed and found to be negative. SOCIAL HISTORY: She is a former smoker. No alcohol. No drug. HOME MEDICATIONS: Included prednisone, simvastatin, MiraLax, Protonix, Synthroid, Xopenex nebulizer. ALLERGIES: ALLERGIC TO PEANUTS. FAMILY HISTORY: Negative for inherited diseases. PHYSICAL EXAMINATION VITAL SIGNS: Temp max 99.2, respirations 24 by ventilator, blood pressure is 112/68 and oxygen saturation between 94 and 100. HEENT: Examination of head normocephalic and atraumatic. CHEST: Symmetrical. BACK: With kyphosis. PULMONARY: Positive rhonchi. Positive wheezes bilaterally. CARDIOVASCULAR: S1, S2. Regular rhythm. Positive for systolic murmur. GASTROINTESTINAL: Soft, nontender. No organomegaly. EXTREMITIES: Trace pedal edema. NEUROLOGIC: Unable to evaluate. SKIN: No skin rashes. No cyanosis. LABORATORY DATA: Her ABG from emergency room on 40%: PH of 7.11, pCO2 of 128 and pO2 of 109. ASSESSMENT: 1. Ventilator-dependent respiratory failure. 2. Respiratory acidosis. 3. Carbon dioxide retention with signs of carbon dioxide narcosis. 4. Exacerbation of severe chronic obstructive pulmonary disease. 5. History of smoking in the past. 6. Hypothyroidism. 7. Indeterminate troponin. Rule out myocardial infarction. PLAN: I have discussed the patient's status and further action with the ICU team and specifically with the financial coach. Currently, she is on CPAP trial. I reviewed her chest x-ray, which is clear. No infiltrates and no signs of congestive heart failure. In my opinion, due to elevated temperature, it will be premature to try and extubate after only several hours on the ventilator because she presented with very high CO2 level and severe metabolic acidosis. Because of the fever, her metabolic requirements are increased and she may not be able to sustain the needed minute ventilation. I agree with current choices of antibiotics. We will continue nebulizer treatments and give her CPAP trial in 12-24 hours followed by extubation attempt if ready. Remy Peacock MD
--- NOTE | 2017-12-17 16:49 | CARD ---
APPROVED REPORT EKG Measurement Heart [id number] <Conclusion> Sinus rhythm with occasional APCs Consider anterior ischemia Left ventricular hypertrophy with repolarization abnormality Prolonged QT Abnormal ECG
--- NOTE | 2017-12-17 16:58 | CARD ---
APPROVED REPORT EKG Measurement Heart [id number] <Conclusion> Sinus tachycardia Left ventricular hypertrophy with repolarization abnormality Abnormal ECG
[2017-12-18] MEDS: MethylPREDNISolone 40 mg Vial IVP SCH ×3 (04:38→19:00)
[2017-12-18] MEDS: Levalbuterol 0.63 MG/3 ML Inhal Soln UD IH SCH ×6 (04:42→23:30)
[2017-12-18] MEDS ORDERED: Ergocalciferol 50,000 Intl Units Cap PO SCH (05:00)
[2017-12-18 05:14] LABS: ARTERIAL BLOOD GAS HCO3 32.8 mmol/L (21-28); ARTERIAL BLOOD GAS HEMOGLOBIN 11.5 g/dL (11.7-17.4); ARTERIAL BLOOD GAS O2 CONTENT 15.9 ML/dl (15-23); ARTERIAL BLOOD GAS O2 SAT 99.6 % (95-98); ARTERIAL BLOOD GAS PCO2 44 mm/Hg (35-45); ARTERIAL BLOOD GAS PH 7.48 (7.35-7.45); ARTERIAL BLOOD GAS TCO2 34.2 mmol.L (22-28)
[2017-12-18 06:16] LABS: GRAN # 4.71 (1.4-6.5); GRAN % 83.1 % (50.0-68.0); HEMOGLOBIN 11.2 g/dL (12.0-16.0); LYMPH # 0.8 (1.2-3.4); LYMPH % 13.4 % (22.0-35.0); MEAN CELL VOLUME 89.9 fl (80.0-105.0); MEAN CORPUSCULAR HEMOGLOBIN 28.9 pg (25.0-35.0); MEAN CORPUSCULAR HGB CONC 32.2 g/dl (31.0-37.0); MEAN PLATELET VOLUME 11.2 fl (7.0-11.0); MONO # 0.2 (0.1-0.6); MONO % 3.5 % (1.0-6.0); RBC 3.87 10^6/uL (3.5-6.1); RED CELL DISTRIBUTION WIDTH 14.7 % (11.5-14.5); WHITE BLOOD COUNT 5.7 10^3/ul (4.5-11.0)
--- NOTE | 2017-12-18 06:43 | CP.CCUPN ---
<Fred Wong - Last Filed: 12/18/17 12:00> CCU Subjective - Physician Review Subjective (Free Text): 12/18/17 12:00 Patient seen and examined at bedside in ICU. Tolerated Pressure support trial well again today, so was extubated to Bipap, tolerating well. ABG after extubation reviewed. Patient following all commands appropriately, able to answer yes/no questions with head movements while intubated. Denies any chest pain, nausea, abdominal pain. Now after extubation, denies complaint of sensation of choking, shortness of breath. CCU Objective - Vital Signs / Intake & Output Vital Signs (Last 4 hours): Vital Signs Temp Pulse BP Pulse Ox 12/18/17 06:10 98.8 F 78 98 12/18/17 06:00 98.6 F 67 124/95 H 100 12/18/17 05:50 98.6 F 70 100 12/18/17 05:40 98.8 F 70 100 12/18/17 05:30 98.8 F 80 99 12/18/17 05:20 98.6 F 80 100 12/18/17 05:10 98.6 F 95 H 99 12/18/17 05:00 98.6 F 65 133/77 100 12/18/17 04:50 98.4 F 65 99 12/18/17 04:40 98.6 F 91 H 100 12/18/17 04:30 98.6 F 62 99 12/18/17 04:20 98.6 F 58 L 100 12/18/17 04:10 98.8 F 56 L 100 12/18/17 04:00 98.8 F 57 L 132/78 100 12/18/17 03:50 98.8 F 60 100 12/18/17 03:40 99.0 F 58 L 100 12/18/17 03:30 99.0 F 62 100 12/18/17 03:20 99.1 F 70 100 12/18/17 03:10 99.1 F 63 100 12/18/17 03:00 99.1 F 61 131/82 100 12/18/17 02:50 99.1 F 67 100 Intake and Output (Last 8hrs): Intake & Output 12/17/17 12/17/17 12/18/17 14:59 22:59 06:59 Intake Total 49 342 100 Output Total 300 Balance 49 342 -200 Weight 54.431 kg Intake: IV 49 342 100 Left Antecubital 322 100 Left Hand 20 Oral 0 0 Tube Feeding 0 Output: Urine 300 Urethral ([place]) 300 Other: # Voids Urethral ([place]) 200 # Bowel Movements 0 0 - Physical Exam Head: Positive for: Atraumatic, Normocephalic Pupils: Positive for: PERRL. Negative for: Non-Reactive, Pinpoint Extroacular Muscles: Positive for: EOMI. Negative for: Gaze Palsy, Entrapment Conjunctiva: Positive for: Normal. Negative for: Injected, Icteric Mouth: Positive for: Moist Mucous Membranes, Normal Lips, Normal Tounge, Other ( wearing Bipap mask). Negative for: Drooling Nose (External): Positive for: Atraumatic. Negative for: Abrasion, Laceration Nose (Internal): Positive for: Normal Inspection, No Active Bleeding. Negative for: Epistaxis Neck: Positive for: Normal Range of Motion. Negative for: Meningeal Signs, MIDLINE TENDERNESS, Paraspinal Tenderness, JVD Respiratory/Chest: Positive for: Good Air Exchange, Decreased Breath Sounds ( decreased breath sounds in all bauer, improved over prior exam). Negative for : Respiratory Distress, Accessory Muscle Use, Wheezes, Rales, Rhonchi Cardiovascular: Positive for: Regular Rate and Rhythm, Normal S1, S2. Negative for: Murmurs, Irregular Rhythm, Tachycardic, Bradycardic Abdomen: Negative for: Tenderness, Distention, Peritoneal Signs Upper Extremity: Positive for: Normal Inspection, Normal ROM, NORMAL PULSES. Negative for: Cyanosis, Edema, Tenderness, Swelling, Erythema, Deformity Lower Extremity: Positive for: Normal Inspection, NORMAL PULSES, Normal ROM. Negative for: Edema, CALF TENDERNESS, Cyanosis, Tenderness, Swelling, Erythema, Deformity Neurological: Positive for: GCS=15, Motor Func Grossly Intact, Other (awake and alert, following all commands, moving all extremities spontaneously and on command, comprehension intact) Skin: Positive for: Warm, Dry, Normal Color. Negative for: Rashes Psychiatric: Positive for: Alert, Other (non-verbal due to ETT/Bipap mask, but not overtly agitated/anxious) - Medications Active Medications: Active Medications Generic Name Dose Route Start Last Admin Trade Name Freq PRN Reason Stop Dose Admin Acetaminophen 650 mg 12/16/17 19:09 12/17/17 08:30 Tylenol 650 Mg Supp RC 650 mg Q6H PRN Administration TEMP>=99.5F Enoxaparin Sodium 40 mg 12/17/17 10:00 12/17/17 09:30 Lovenox SC 40 mg DAILY KRISTINE Administration Protocol Ergocalciferol 1 cap 12/18/17 05:00 Drisdol 50,000 Intl Units Cap PO Q7D KRISTINE Ceftriaxone Sodium 1 gm in 100 mls @ 100 mls/hr 12/16/17 15:30 12/17/17 10:26 Rocephin 1 Gram Ivpb IVPB 100 mls/hr DAILY KRISTINE Administration Protocol Fentanyl Citrate 1,000 mcg in 100 mls @ 2 mls/hr 12/16/17 16:03 12/17/17 08: 05 Fentanyl Citrate/Sodium Chloride 1 Mg/100 Ml IV 0 mcg/hr .Q24H PRN 0 mls/hr TITRATE PER MD ORDER Titration Protocol 20 MCG/HR Midazolam 100 mg/100ml in NS 100 mg in 100 mls @ 1 mls/hr 12/16/17 16:02 08:05 Midazolam 100 Mg/100ml In Ns IV 0 mg/hr .Q24H PRN 0 mls/hr Sedation Titration Protocol 1 MG/HR Doxycycline Hyclate 100 mg/ 100 mls @ 100 mls/hr 12/16/17 22:00 12/17/17 21: 48 Sodium Chloride IVPB 100 mls/hr Q12 KRISTINE Administration Protocol Levalbuterol HCl 0.63 mg 12/16/17 15:37 Xopenex IH Q2 PRN Shortness of Breath Levalbuterol HCl 0.63 mg 12/16/17 15:45 12/18/17 04:42 Xopenex IH 0.63 mg Q4H KRISTINE Administration Methylprednisolone 40 mg 12/16/17 20:00 12/18/17 04:38 Solu-Medrol IVP 40 mg Q8H KRISTINE Administration Ondansetron HCl 4 mg 12/16/17 19:09 Zofran Inj IVP Q4H PRN Nausea/Vomiting Pantoprazole Sodium 40 mg 12/16/17 18:00 12/17/17 17:48 Protonix Inj IVP 40 mg BID KRISTINE Administration - Patient Studies Lab Studies: Microbiology Studies 12/16/17 19:56 Blood Culture - Preliminary Blood NO GROWTH AFTER 24 HOURS 12/16/17 19:56 Blood Culture - Preliminary Blood NO GROWTH AFTER 24 HOURS Lab Studies 12/18/17 12/18/17 12/18/17 Range/Units 06:01 05:30 05:05 WBC 5.7 (4.5-11.0) 10^3/ul RBC 3.87 (3.5-6.1) 10^6/uL Hgb 11.2 L (12.0-16.0) g/dL Hct 34.8 L (36.0-48.0) % MCV 89.9 (80.0-105.0) fl MCH 28.9 (25.0-35.0) pg MCHC 32.2 (31.0-37.0) g/dl RDW 14.7 H (11.5-14.5) % Plt Count 151 (120.0-450.0) 10^3/uL MPV 11.2 H (7.0-11.0) fl Gran % 83.1 H (50.0-68.0) % Lymph % (Auto) 13.4 L (22.0-35.0) % [place] % (Auto) 3.5 (1.0-6.0) % Eos % (Auto) 0.0 L (1.5-5.0) % Baso % (Auto) 0.0 (0.0-3.0) % Gran # 4.71 (1.4-6.5) Lymph # (Auto) 0.8 L (1.2-3.4) [place] # (Auto) 0.2 (0.1-0.6) Eos # (Auto) 0.0 (0.0-0.7) Baso # (Auto) 0.00 (0.0-2.0) K/mm3 PT (9.4-12.5) SECONDS INR (0.93-1.08) APTT (25.1-36.5) Seconds pCO2 44 (35-45) mm/Hg pO2 154.0 H (80-100) mm/Hg HCO3 32.8 H (21-28) mmol/L ABG pH 7.48 H (7.35-7.45) ABG Total CO2 34.2 H (22-28) mmol.L ABG O2 Saturation 99.6 H (95-98) % ABG O2 Content 15.9 (15-23) ML/dl ABG Base Excess 8.3 H (-2.0-3.0) mmol/L ABG Hemoglobin 11.5 L (11.7-17.4) g/dL ABG Carboxyhemoglobin 1.6 H (0.5-1.5) % POC ABG HHb (Measured) 0.4 (0-5) % ABG Methemoglobin 1.6 (0.0-3.0) % ABG O2 Capacity 16.0 (16-24) mL/dl Hgb O2 Saturation 96.4 (95.0-98.0) % FiO2 35.0 % POC Glucose (mg/dL) 92 (65-110) mg/dL GGT (8-78) U/L 25-OH Vitamin D Total (30.0-100.0) NG/ML Hepatitis A IgM Ab (NEGATIVE) Hep Bs Antigen (NEGATIVE) Hep B Core IgM Ab (NEGATIVE) Hepatitis C Antibody (NEGATIVE) 12/18/17 12/17/17 12/17/17 Range/Units 00:00 17:22 11:40 WBC (4.5-11.0) 10^3/ul RBC (3.5-6.1) 10^6/uL Hgb (12.0-16.0) g/dL Hct (36.0-48.0) % MCV (80.0-105.0) fl MCH (25.0-35.0) pg MCHC (31.0-37.0) g/dl RDW (11.5-14.5) % Plt Count (120.0-450.0) 10^3/uL MPV (7.0-11.0) fl Gran % (50.0-68.0) % Lymph % (Auto) (22.0-35.0) % [place] % (Auto) (1.0-6.0) % Eos % (Auto) (1.5-5.0) % Baso % (Auto) (0.0-3.0) % Gran # (1.4-6.5) Lymph # (Auto) (1.2-3.4) [place] # (Auto) (0.1-0.6) Eos # (Auto) (0.0-0.7) Baso # (Auto) (0.0-2.0) K/mm3 PT (9.4-12.5) SECONDS INR (0.93-1.08) APTT (25.1-36.5) Seconds pCO2 (35-45) mm/Hg pO2 (80-100) mm/Hg HCO3 (21-28) mmol/L ABG pH (7.35-7.45) ABG Total CO2 (22-28) mmol.L ABG O2 Saturation (95-98) % ABG O2 Content (15-23) ML/dl ABG Base Excess (-2.0-3.0) mmol/L ABG Hemoglobin (11.7-17.4) g/dL ABG Carboxyhemoglobin (0.5-1.5) % POC ABG HHb (Measured) (0-5) % ABG Methemoglobin (0.0-3.0) % ABG O2 Capacity (16-24) mL/dl Hgb O2 Saturation (95.0-98.0) % FiO2 % POC Glucose (mg/dL) 95 111 H 106 (65-110) mg/dL GGT (8-78) U/L 25-OH Vitamin D Total (30.0-100.0) NG/ML Hepatitis A IgM Ab (NEGATIVE) Hep Bs Antigen (NEGATIVE) Hep B Core IgM Ab (NEGATIVE) Hepatitis C Antibody (NEGATIVE) 12/17/17 12/17/17 12/17/17 Range/Units 09:00 06:00 06:00 WBC (4.5-11.0) 10^3/ul RBC (3.5-6.1) 10^6/uL Hgb (12.0-16.0) g/dL Hct (36.0-48.0) % MCV (80.0-105.0) fl MCH (25.0-35.0) pg MCHC (31.0-37.0) g/dl RDW (11.5-14.5) % Plt Count (120.0-450.0) 10^3/uL MPV (7.0-11.0) fl Gran % (50.0-68.0) % Lymph % (Auto) (22.0-35.0) % [place] % (Auto) (1.0-6.0) % Eos % (Auto) (1.5-5.0) % Baso % (Auto) (0.0-3.0) % Gran # (1.4-6.5) Lymph # (Auto) (1.2-3.4) [place] # (Auto) (0.1-0.6) Eos # (Auto) (0.0-0.7) Baso # (Auto) (0.0-2.0) K/mm3 PT 13.6 H (9.4-12.5) SECONDS INR 1.18 H (0.93-1.08) APTT 23.2 L (25.1-36.5) Seconds pCO2 65 H (35-45) mm/Hg pO2 127.0 H (80-100) mm/Hg HCO3 37.6 H (21-28) mmol/L ABG pH 7.37 (7.35-7.45) ABG Total CO2 39.6 H (22-28) mmol.L ABG O2 Saturation 99.9 H (95-98) % ABG O2 Content 15.9 (15-23) ML/dl ABG Base Excess 10.1 H (-2.0-3.0) mmol/L ABG Hemoglobin 11.5 L (11.7-17.4) g/dL ABG Carboxyhemoglobin 1.7 H (0.5-1.5) % POC ABG HHb (Measured) 0.1 (0-5) % ABG Methemoglobin 1.4 (0.0-3.0) % ABG O2 Capacity 15.9 L (16-24) mL/dl Hgb O2 Saturation 96.8 (95.0-98.0) % FiO2 35.0 % POC Glucose (mg/dL) 89 (65-110) mg/dL GGT (8-78) U/L 25-OH Vitamin D Total (30.0-100.0) NG/ML Hepatitis A IgM Ab (NEGATIVE) Hep Bs Antigen (NEGATIVE) Hep B Core IgM Ab (NEGATIVE) Hepatitis C Antibody (NEGATIVE) 12/17/17 12/17/17 12/17/17 Range/Units 03:35 03:35 03:35 WBC (4.5-11.0) 10^3/ul RBC (3.5-6.1) 10^6/uL Hgb (12.0-16.0) g/dL Hct (36.0-48.0) % MCV (80.0-105.0) fl MCH (25.0-35.0) pg MCHC (31.0-37.0) g/dl RDW (11.5-14.5) % Plt Count (120.0-450.0) 10^3/uL MPV (7.0-11.0) fl Gran % (50.0-68.0) % Lymph % (Auto) (22.0-35.0) % [place] % (Auto) (1.0-6.0) % Eos % (Auto) (1.5-5.0) % Baso % (Auto) (0.0-3.0) % Gran # (1.4-6.5) Lymph # (Auto) (1.2-3.4) [place] # (Auto) (0.1-0.6) Eos # (Auto) (0.0-0.7) Baso # (Auto) (0.0-2.0) K/mm3 PT (9.4-12.5) SECONDS INR (0.93-1.08) APTT (25.1-36.5) Seconds pCO2 (35-45) mm/Hg pO2 (80-100) mm/Hg HCO3 (21-28) mmol/L ABG pH (7.35-7.45) ABG Total CO2 (22-28) mmol.L ABG O2 Saturation (95-98) % ABG O2 Content (15-23) ML/dl ABG Base Excess (-2.0-3.0) mmol/L ABG Hemoglobin (11.7-17.4) g/dL ABG Carboxyhemoglobin (0.5-1.5) % POC ABG HHb (Measured) (0-5) % ABG Methemoglobin (0.0-3.0) % ABG O2 Capacity (16-24) mL/dl Hgb O2 Saturation (95.0-98.0) % FiO2 % POC Glucose (mg/dL) (65-110) mg/dL GGT 61 (8-78) U/L 25-OH Vitamin D Total 19.9 L (30.0-100.0) NG/ML Hepatitis A IgM Ab Negative (NEGATIVE) Hep Bs Antigen Negative (NEGATIVE) Hep B Core IgM Ab Negative (NEGATIVE) Hepatitis C Antibody Negative (NEGATIVE) 12/17/17 Range/Units 00:08 WBC (4.5-11.0) 10^3/ul RBC (3.5-6.1) 10^6/uL Hgb (12.0-16.0) g/dL Hct (36.0-48.0) % MCV (80.0-105.0) fl MCH (25.0-35.0) pg MCHC (31.0-37.0) g/dl RDW (11.5-14.5) % Plt Count (120.0-450.0) 10^3/uL MPV (7.0-11.0) fl Gran % (50.0-68.0) % Lymph % (Auto) (22.0-35.0) % [place] % (Auto) (1.0-6.0) % Eos % (Auto) (1.5-5.0) % Baso % (Auto) (0.0-3.0) % Gran # (1.4-6.5) Lymph # (Auto) (1.2-3.4) [place] # (Auto) (0.1-0.6) Eos # (Auto) (0.0-0.7) Baso # (Auto) (0.0-2.0) K/mm3 PT (9.4-12.5) SECONDS INR (0.93-1.08) APTT (25.1-36.5) Seconds pCO2 (35-45) mm/Hg pO2 (80-100) mm/Hg HCO3 (21-28) mmol/L ABG pH (7.35-7.45) ABG Total CO2 (22-28) mmol.L ABG O2 Saturation (95-98) % ABG O2 Content (15-23) ML/dl ABG Base Excess (-2.0-3.0) mmol/L ABG Hemoglobin (11.7-17.4) g/dL ABG Carboxyhemoglobin (0.5-1.5) % POC ABG HHb (Measured) (0-5) % ABG Methemoglobin (0.0-3.0) % ABG O2 Capacity (16-24) mL/dl Hgb O2 Saturation (95.0-98.0) % FiO2 % POC Glucose (mg/dL) 109 (65-110) mg/dL GGT (8-78) U/L 25-OH Vitamin D Total (30.0-100.0) NG/ML Hepatitis A IgM Ab (NEGATIVE) Hep Bs Antigen (NEGATIVE) Hep B Core IgM Ab (NEGATIVE) Hepatitis C Antibody (NEGATIVE) Laboratory Results - last 24 hr 12/17/17 12/17/17 12/17/17 00:08 03:35 03:35 WBC RBC Hgb Hct MCV MCH MCHC RDW Plt Count MPV Gran % Lymph % (Auto) [place] % (Auto) Eos % (Auto) Baso % (Auto) Gran # Lymph # (Auto) [place] # (Auto) Eos # (Auto) Baso # (Auto) PT INR APTT pCO2 pO2 HCO3 ABG pH ABG Total CO2 ABG O2 Saturation ABG O2 Content ABG Base Excess ABG Hemoglobin ABG Carboxyhemoglobin POC ABG HHb (Measured) ABG Methemoglobin ABG O2 Capacity Hgb O2 Saturation FiO2 POC Glucose (mg/dL) 109 GGT 61 25-OH Vitamin D Total 19.9 L Hepatitis A IgM Ab Hep Bs Antigen Hep B Core IgM Ab Hepatitis C Antibody 12/17/17 12/17/17 12/17/17 03:35 06:00 06:00 WBC RBC Hgb Hct MCV MCH MCHC RDW Plt Count MPV Gran % Lymph % (Auto) [place] % (Auto) Eos % (Auto) Baso % (Auto) Gran # Lymph # (Auto) [place] # (Auto) Eos # (Auto) Baso # (Auto) PT 13.6 H INR 1.18 H APTT 23.2 L pCO2 pO2 HCO3 ABG pH ABG Total CO2 ABG O2 Saturation ABG O2 Content ABG Base Excess ABG Hemoglobin ABG Carboxyhemoglobin POC ABG HHb (Measured) ABG Methemoglobin ABG O2 Capacity Hgb O2 Saturation FiO2 POC Glucose (mg/dL) 89 GGT 25-OH Vitamin D Total Hepatitis A IgM Ab Negative Hep Bs Antigen Negative Hep B Core IgM Ab Negative Hepatitis C Antibody Negative 12/17/17 12/17/17 12/17/17 09:00 11:40 17:22 WBC RBC Hgb Hct MCV MCH MCHC RDW Plt Count MPV Gran % Lymph % (Auto) [place] % (Auto) Eos % (Auto) Baso % (Auto) Gran # Lymph # (Auto) [place] # (Auto) Eos # (Auto) Baso # (Auto) PT INR APTT pCO2 65 H pO2 127.0 H HCO3 37.6 H ABG pH 7.37 ABG Total CO2 39.6 H ABG O2 Saturation 99.9 H ABG O2 Content 15.9 ABG Base Excess 10.1 H ABG Hemoglobin 11.5 L ABG Carboxyhemoglobin 1.7 H POC ABG HHb (Measured) 0.1 ABG Methemoglobin 1.4 ABG O2 Capacity 15.9 L Hgb O2 Saturation 96.8 FiO2 35.0 POC Glucose (mg/dL) 106 111 H GGT 25-OH Vitamin D Total Hepatitis A IgM Ab Hep Bs Antigen Hep B Core IgM Ab Hepatitis C Antibody 12/18/17 12/18/17 12/18/17 00:00 05:05 05:30 WBC 5.7 RBC 3.87 Hgb 11.2 L Hct 34.8 L MCV 89.9 MCH 28.9 MCHC 32.2 RDW 14.7 H Plt Count 151 MPV 11.2 H Gran % 83.1 H Lymph % (Auto) 13.4 L [place] % (Auto) 3.5 Eos % (Auto) 0.0 L Baso % (Auto) 0.0 Gran # 4.71 Lymph # (Auto) 0.8 L [place] # (Auto) 0.2 Eos # (Auto) 0.0 Baso # (Auto) 0.00 PT INR APTT pCO2 44 pO2 154.0 H HCO3 32.8 H ABG pH 7.48 H ABG Total CO2 34.2 H ABG O2 Saturation 99.6 H ABG O2 Content 15.9 ABG Base Excess 8.3 H ABG Hemoglobin 11.5 L ABG Carboxyhemoglobin 1.6 H POC ABG HHb (Measured) 0.4 ABG Methemoglobin 1.6 ABG O2 Capacity 16.0 Hgb O2 Saturation 96.4 FiO2 35.0 POC Glucose (mg/dL) 95 GGT 25-OH Vitamin D Total Hepatitis A IgM Ab Hep Bs Antigen Hep B Core IgM Ab Hepatitis C Antibody 12/18/17 06:01 WBC RBC Hgb Hct MCV MCH MCHC RDW Plt Count MPV Gran % Lymph % (Auto) [place] % (Auto) Eos % (Auto) Baso % (Auto) Gran # Lymph # (Auto) [place] # (Auto) Eos # (Auto) Baso # (Auto) PT INR APTT pCO2 pO2 HCO3 ABG pH ABG Total CO2 ABG O2 Saturation ABG O2 Content ABG Base Excess ABG Hemoglobin ABG Carboxyhemoglobin POC ABG HHb (Measured) ABG Methemoglobin ABG O2 Capacity Hgb O2 Saturation FiO2 POC Glucose (mg/dL) 92 GGT 25-OH Vitamin D Total Hepatitis A IgM Ab Hep Bs Antigen Hep B Core IgM Ab Hepatitis C Antibody EKG/Cardiology Studies: Cardiology / EKG Studies 12/17/17 06:00 EKG [ELECTROCARDIOGRAM] DAILY Comment: Reason For Exam: RESP FAILURE 12/18/17 06:00 EKG [ELECTROCARDIOGRAM] DAILY Comment: Reason For Exam: RESP FAILURE 12/19/17 06:00 EKG [ELECTROCARDIOGRAM] DAILY Comment: Reason For Exam: RESP FAILURE Fingerstick Blood Sugar Results: 95 Review of Systems - Review of Systems Systems not reviewed;Unavailable: Intubated Critical Care Progress Note - Nutrition Nutrition: Nutrition Category Date Time Status NPO Diet [DIET] Diets 12/16/17 Dinner Ordered Assessment/Plan - Assessment and Plan (Free Text) Assessment: This is a 72 yo AA F with PMH of COPD (with prior intubations for exacerbations) , asthma, HTN, and pulmonary HTN who presented to [facility] with worsening shortness of breath, found to be in hypercarbic respiratory failure, failing Bipap in ED, then intubated and placed on mechanical ventilation. S/p pressure support trial and extubation to Bipap, tolerating well. Plan: Neuro: -off all sedation, awake and alert, following all commands appropriately -maintain normothermia; no further fevers overnight Cardio: -RRR, hemodynamically stable -hx diastolic heart failure, BNP 5130, Cardio following, appreciate all recs -Lovenox for DVT ppx -trops 0.4 x3 Pulm: -covered empirically for PNA with Rocephin, Doxy added as per PMD -procal negative, cultures negative at 24 hrs -solumedrol q8, xopenex q4 and q2 prn as per Pulm -tolerated pressure support well, now extubated to bipap, ABG post-extubation pCO2 44, paO2 127, HCO3 31.9, pH 7.43, on FiO2 30% -Pulm consulted, appreciate their recs GI: -NPO due to intubation, pending swallow study post-extubation -Protonix for GI ppx Renal: -monitor and replete electrolytes as needed -Cr stable at 0.7 Heme: -Hgb stable at 11.2 -Lovenox for DVT ppx ID: -empirically covered for possible PNA with rocephin, Doxy added as per PMD -procal negative, cultures negative at 24 hrs Dispo: ICU, s/p extubation to Bipap, will observe post-extubation for 24 hrs and if remains stable can consider transfer out of ICU FEN: NPO pending swallow study Access: Peripheral IVs Consults: Cardio, Pulm Ppx: protonix for GI, Lovenox for DVT Patient seen, reviewed, examined with attending, Dr. Rodriguez <Ronny Rodriguez - Last Filed: 12/19/17 12:17> CCU Objective - Vital Signs / Intake & Output Vital Signs (Last 4 hours): Vital Signs Pulse Resp BP Pulse Ox 12/19/17 11:00 74 32 H 141/86 100 12/19/17 10:50 73 18 100 12/19/17 10:40 71 27 H 100 12/19/17 10:30 66 17 100 12/19/17 10:20 63 29 H 95 12/19/17 10:10 72 26 H 100 12/19/17 10:02 78 39 H 132/77 97 12/19/17 10:00 79 20 95 12/19/17 09:50 74 44 H 100 12/19/17 09:40 79 29 H 100 12/19/17 09:30 82 45 H 100 12/19/17 09:20 82 39 H 100 12/19/17 09:10 81 41 H 100 12/19/17 09:00 81 41 H 119/63 100 12/19/17 08:50 83 39 H 100 12/19/17 08:40 74 40 H 100 12/19/17 08:30 80 21 100 12/19/17 08:20 94 H 100 Intake and Output (Last 8hrs): Intake & Output 12/18/17 12/19/17 12/19/17 22:59 06:59 14:59 Intake Total 210 350 Output Total 300 325 Balance -90 25 Weight 119 lb 8 oz Intake: IV 210 100 Left Antecubital 200 100 Left Hand 10 Oral 0 250 Output: Urine 300 325 Urethral ([place]) 300 325 Other: # Bowel Movements 0 1 - Medications Active Medications: Active Medications Generic Name Dose Route Start Last Admin Trade Name Freq PRN Reason Stop Dose Admin Acetaminophen 650 mg 12/16/17 19:09 12/17/17 08:30 Tylenol 650 Mg Supp RC 650 mg Q6H PRN Administration TEMP>=99.5F Aspirin 325 mg 12/20/17 10:00 Aspirin PO DAILY [facility] Atorvastatin Calcium 10 mg 12/19/17 17:00 Lipitor PO DIN [facility] Doxycycline Hyclate 100 mg 12/19/17 22:00 Doryx PO Q12 KRISTINE Enoxaparin Sodium 40 mg 12/17/17 10:00 12/19/17 10:35 Lovenox SC 40 mg DAILY KRISTINE Administration Protocol Ergocalciferol 1 cap 12/18/17 05:00 Drisdol 50,000 Intl Units Cap PO Q7D KRISTINE Ceftriaxone Sodium 1 gm in 100 mls @ 100 mls/hr 12/16/17 15:30 12/18/17 13:24 Rocephin 1 Gram Ivpb IVPB 12/20/17 10:59 100 mls/hr DAILY KRISTINE Administration Protocol Fentanyl Citrate 1,000 mcg in 100 mls @ 2 mls/hr 12/16/17 16:03 12/17/17 08: 05 Fentanyl Citrate/Sodium Chloride 1 Mg/100 Ml IV 0 mcg/hr .Q24H PRN 0 mls/hr TITRATE PER MD ORDER Titration Protocol 20 MCG/HR Midazolam 100 mg/100ml in NS 100 mg in 100 mls @ 1 mls/hr 12/16/17 16:02 08:05 Midazolam 100 Mg/100ml In Ns IV 0 mg/hr .Q24H PRN 0 mls/hr Sedation Titration Protocol 1 MG/HR Levalbuterol HCl 0.63 mg 12/16/17 15:37 Xopenex IH Q2 PRN Shortness of Breath Levalbuterol HCl 0.63 mg 12/19/17 10:00 Xopenex IH Q6H KRISTINE Levothyroxine Sodium 50 mcg 12/19/17 10:30 12/19/17 10:35 Synthroid PO 50 mcg DAILY KRISTINE Administration Methylprednisolone 40 mg 12/19/17 22:00 Solu-Medrol IVP Q12 KRISTINE Ondansetron HCl 4 mg 12/16/17 19:09 Zofran Inj IVP Q4H PRN Nausea/Vomiting Pantoprazole Sodium 40 mg 12/19/17 16:00 Protonix Ec Tab PO 0600,1600 [facility] Polyethylene Glycol 17 gm 12/19/17 10:30 Miralax PO DAILY [facility] - Patient Studies Lab Studies: Microbiology Studies 12/16/17 19:56 Blood Culture - Preliminary Blood NO GROWTH AFTER 48 HOURS 12/16/17 19:56 Blood Culture - Preliminary Blood NO GROWTH AFTER 48 HOURS 12/16/17 19:31 MRSA Culture (Admit) - Final Nose MRSA NOT DETECTED 12/16/17 17:00 Urine Culture - Final Urine,[place] No Growth (<1,000 CFU/ML) Lab Studies 12/19/17 12/19/17 12/19/17 Range/Units 11:31 08:07 06:30 pCO2 (35-45) mm/Hg pO2 (80-100) mm/Hg HCO3 (21-28) mmol/L ABG pH (7.35-7.45) ABG Total CO2 (22-28) mmol.L ABG O2 Saturation (95-98) % ABG O2 Content (15-23) ML/dl ABG Base Excess (-2.0-3.0) mmol/L ABG Hemoglobin (11.7-17.4) g/dL ABG Carboxyhemoglobin (0.5-1.5) % POC ABG HHb (Measured) (0-5) % ABG Methemoglobin (0.0-3.0) % ABG O2 Capacity (16-24) mL/dl Hgb O2 Saturation (95.0-98.0) % FiO2 % Sodium 142 (132-148) mmol/L Potassium 4.5 (3.6-5.0) mmol/L Chloride 102 (98-107) mmol/L Carbon Dioxide 33 (21-33) mmol/L Anion Gap 13 (10-20) BUN 28 H (7-21) mg/dL Creatinine 0.6 L (0.7-1.2) mg/dl Est GFR ( Amer) > 60 Est GFR (Non-Af Amer) > 60 POC Glucose (mg/dL) 183 H 245 H (65-110) mg/dL Random Glucose 124 H (70-110) mg/dL Calcium 8.4 (8.4-10.5) mg/dL Magnesium (1.7-2.2) mg/dL Total Bilirubin 0.2 (0.2-1.3) mg/dL AST 33 (14-36) U/L ALT 54 (7-56) U/L Alkaline Phosphatase 65 (38-126) U/L Total Protein 6.9 (5.8-8.3) g/dL Albumin 3.9 (3.0-4.8) g/dL Globulin 3.0 gm/dL Albumin/Globulin Ratio 1.3 (1.1-1.8) 12/19/17 12/19/17 12/18/17 Range/Units 06:26 05:30 22:49 pCO2 72 H* (35-45) mm/Hg pO2 110.0 H (80-100) mm/Hg HCO3 36.3 H (21-28) mmol/L ABG pH 7.31 L (7.35-7.45) ABG Total CO2 38.5 H (22-28) mmol.L ABG O2 Saturation 99.7 H (95-98) % ABG O2 Content 16.6 (15-23) ML/dl ABG Base Excess 7.7 H (-2.0-3.0) mmol/L ABG Hemoglobin 12.0 (11.7-17.4) g/dL ABG Carboxyhemoglobin 1.7 H (0.5-1.5) % POC ABG HHb (Measured) 0.3 (0-5) % ABG Methemoglobin 0.9 (0.0-3.0) % ABG O2 Capacity 16.6 (16-24) mL/dl Hgb O2 Saturation 97.2 (95.0-98.0) % FiO2 28.0 % Sodium (132-148) mmol/L Potassium (3.6-5.0) mmol/L Chloride (98-107) mmol/L Carbon Dioxide (21-33) mmol/L Anion Gap (10-20) BUN (7-21) mg/dL Creatinine (0.7-1.2) mg/dl Est GFR ( Amer) Est GFR (Non-Af Amer) POC Glucose (mg/dL) 104 (65-110) mg/dL Random Glucose (70-110) mg/dL Calcium (8.4-10.5) mg/dL Magnesium 2.5 H (1.7-2.2) mg/dL Total Bilirubin (0.2-1.3) mg/dL AST (14-36) U/L ALT (7-56) U/L Alkaline Phosphatase (38-126) U/L Total Protein (5.8-8.3) g/dL Albumin (3.0-4.8) g/dL Globulin gm/dL Albumin/Globulin Ratio (1.1-1.8) 12/18/17 Range/Units 16:08 pCO2 (35-45) mm/Hg pO2 (80-100) mm/Hg HCO3 (21-28) mmol/L ABG pH (7.35-7.45) ABG Total CO2 (22-28) mmol.L ABG O2 Saturation (95-98) % ABG O2 Content (15-23) ML/dl ABG Base Excess (-2.0-3.0) mmol/L ABG Hemoglobin (11.7-17.4) g/dL ABG Carboxyhemoglobin (0.5-1.5) % POC ABG HHb (Measured) (0-5) % ABG Methemoglobin (0.0-3.0) % ABG O2 Capacity (16-24) mL/dl Hgb O2 Saturation (95.0-98.0) % FiO2 % Sodium (132-148) mmol/L Potassium (3.6-5.0) mmol/L Chloride (98-107) mmol/L Carbon Dioxide (21-33) mmol/L Anion Gap (10-20) BUN (7-21) mg/dL Creatinine (0.7-1.2) mg/dl Est GFR ( Amer) Est GFR (Non-Af Amer) POC Glucose (mg/dL) 101 (65-110) mg/dL Random Glucose (70-110) mg/dL Calcium (8.4-10.5) mg/dL Magnesium (1.7-2.2) mg/dL Total Bilirubin (0.2-1.3) mg/dL AST (14-36) U/L ALT (7-56) U/L Alkaline Phosphatase (38-126) U/L Total Protein (5.8-8.3) g/dL Albumin (3.0-4.8) g/dL Globulin gm/dL Albumin/Globulin Ratio (1.1-1.8) Laboratory Results - last 24 hr 12/18/17 12/18/17 12/19/17 16:08 22:49 05:30 pCO2 pO2 HCO3 ABG pH ABG Total CO2 ABG O2 Saturation ABG O2 Content ABG Base Excess ABG Hemoglobin ABG Carboxyhemoglobin POC ABG HHb (Measured) ABG Methemoglobin ABG O2 Capacity Hgb O2 Saturation FiO2 Sodium Potassium Chloride Carbon Dioxide Anion Gap BUN Creatinine Est GFR ( Amer) Est GFR (Non-Af Amer) POC Glucose (mg/dL) 101 104 Random Glucose Calcium Magnesium 2.5 H Total Bilirubin AST ALT Alkaline Phosphatase Total Protein Albumin Globulin Albumin/Globulin Ratio 12/19/17 12/19/17 12/19/17 06:26 06:30 08:07 pCO2 72 H* pO2 110.0 H HCO3 36.3 H ABG pH 7.31 L ABG Total CO2 38.5 H ABG O2 Saturation 99.7 H ABG O2 Content 16.6 ABG Base Excess 7.7 H ABG Hemoglobin 12.0 ABG Carboxyhemoglobin 1.7 H POC ABG HHb (Measured) 0.3 ABG Methemoglobin 0.9 ABG O2 Capacity 16.6 Hgb O2 Saturation 97.2 FiO2 28.0 Sodium 142 Potassium 4.5 Chloride 102 Carbon Dioxide 33 Anion Gap 13 BUN 28 H Creatinine 0.6 L Est GFR ( Amer) > 60 Est GFR (Non-Af Amer) > 60 POC Glucose (mg/dL) 245 H Random Glucose 124 H Calcium 8.4 Magnesium Total Bilirubin 0.2 AST 33 ALT 54 Alkaline Phosphatase 65 Total Protein 6.9 Albumin 3.9 Globulin 3.0 Albumin/Globulin Ratio 1.3 12/19/17 11:31 pCO2 pO2 HCO3 ABG pH ABG Total CO2 ABG O2 Saturation ABG O2 Content ABG Base Excess ABG Hemoglobin ABG Carboxyhemoglobin POC ABG HHb (Measured) ABG Methemoglobin ABG O2 Capacity Hgb O2 Saturation FiO2 Sodium Potassium Chloride Carbon Dioxide Anion Gap BUN Creatinine Est GFR ( Amer) Est GFR (Non-Af Amer) POC Glucose (mg/dL) 183 H Random Glucose Calcium Magnesium Total Bilirubin AST ALT Alkaline Phosphatase Total Protein Albumin Globulin Albumin/Globulin Ratio Critical Care Progress Note - Nutrition Nutrition: Nutrition Category Date Time Status Dysphagia/Modified Consistency Diet [DIET] Diets 12/18/17 Breakfast Ordered Attending/Attestation - Attestation I have personally seen and examined this patient.: Yes I have fully participated in the care of the patient.: Yes I have reviewed all pertinent clinical information: Yes Notes (Text): 12/19/17 12:16 72 yo female with hypercapnic RF, requiring intubation, now successfully extubated to BPAP. cont with steroid taper, abx, bronchodilators ccm time 40 min
[2017-12-18 07:22] LABS: ALB/GLOB RATIO 1.3 (1.1-1.8); ALBUMIN 3.9 g/dL (3.0-4.8); ALT/SGPT 65 U/L (7-56); AST/SGOT 46 U/L (14-36); BLOOD UREA NITROGEN 27 mg/dL (7-21); CALCIUM 8.5 mg/dL (8.4-10.5); GFR AFRICAN-AMERICAN > 60; GFR NON-AFRICAN AMERICAN > 60
[2017-12-18 07:37] LABS: BILIRUBIN,DIRECT 0.1 mg/dL (0.0-0.4)
--- NOTE | 2017-12-18 08:40 | RAD ---
HISTORY: intubated, f/u COMPARISON: No prior. FINDINGS: LUNGS: No active pulmonary disease. PLEURA: No significant pleural effusion identified, no pneumothorax apparent. CARDIOVASCULAR: Normal. OSSEOUS STRUCTURES: No significant abnormalities. VISUALIZED UPPER ABDOMEN: Normal. OTHER FINDINGS: Endotracheal tube is in satisfactory position IMPRESSION: No active disease.
[2017-12-18] MEDS: Enoxaparin 40 mg Syringe SC SCH (10:03)
[2017-12-18 10:06] LABS: ARTERIAL BLOOD GAS HCO3 31.9 mmol/L (21-28); ARTERIAL BLOOD GAS HEMOGLOBIN 10.9 g/dL (11.7-17.4); ARTERIAL BLOOD GAS O2 CAPACITY 15.2 mL/dl (16-24); ARTERIAL BLOOD GAS O2 CONTENT 15.2 ML/dl (15-23); ARTERIAL BLOOD GAS PCO2 48 mm/Hg (35-45); ARTERIAL BLOOD GAS PH 7.43 (7.35-7.45); ARTERIAL BLOOD GAS TCO2 33.4 mmol.L (22-28)
[2017-12-18] MEDS: cefTRIAXone 1 gm 1 GM/100 ML BAG IVPB SCH (13:24)
--- NOTE | 2017-12-18 13:43 | PN ---
DATE: 12/18/2017 CARDIOLOGY FOLLOWUP SUBJECTIVE: The patient is extubated, on BiPAP. PHYSICAL EXAMINATION: VITAL SIGNS: Blood pressure is 137/78, heart rate is in the 70s. NECK: Negative JVD. LUNGS: No rales are noted. HEART: Reveals S1, S2. EXTREMITIES: Without edema. LABORATORY DATA: Hemoglobin is 11.2. BUN and creatinine are unremarkable. Potassium is stable. Echocardiogram reveals good LV function with an ejection fraction of 68%. There is mild diastolic dysfunction. There is mitral regurgitation noted. IMPRESSION: 1. Status post congestive heart failure, which is better. 2. Left ventricular hypertrophy. 3. Mitral regurgitation. 4. Respiratory failure. 5. Resolution of dyspnea. Given these findings,once the patient is more stable, we will consider a stress test to rule out coronary artery disease as a cause of her acute CHF symptoms. Marcelo Parry MD
--- NOTE | 2017-12-18 16:16 | PN ---
DATE: 12/18/2017 SUBJECTIVE: The patient was seen and examined at the bedside. I discussed her condition with her sons and with entire ICU team and Dr. Rodriguez, Payroll Technician. She is currently on CPAP at 40%, breathing 18 to 20, comfortable and oxygen saturation is 100%. She is on triple antibiotic therapy as well as intravenous steroids. PHYSICAL EXAMINATION: VITAL SIGNS: Reveals temperature of 98.8, pulse 78, respirations 20, blood pressure is 124/95. HEENT: Head: Normocephalic and atraumatic. Ear, nose and throat: Orally intubated. NECK: Supple with no jugular vein distentions. CARDIOVASCULAR: S1, S2. No S3. Regular. PULMONARY: Diminished breath sounds bilaterally with scattered rhonchi, no wheezing. GI: Soft, nontender. No organomegaly. EXTREMITIES: 1+ pedal edema. SKIN: No acute skin rash. NEUROLOGIC: No focal deficits. LABORATORY DATA: Additional data reviewed, arterial blood gas, pH of 7.48, pCO2 of 44 and pO2 of 154. Her electrolytes are normal. Her creatinine is 0.6 and liver function tests are slightly elevated. WBC is 5.7. Hemoglobin of 11.2. ASSESSMENT: 1. Acute respiratory failure. 2. Exacerbation of chronic obstructive pulmonary disease. 3. Past history of smoking. 4. Acute bronchitis. 5. Coronary artery disease. PLAN: I have reviewed this morning's chest x-ray which is slightly rotated; however, there are no acute infiltrates and no congestive changes. I have discussed above with Dr. Rodriguez. The plan is to keep the patient on CPAP trial for an hour and a half to two hours and if successful, we will attempt extubation. Continue with current antibiotic inhalation therapy and intravenous steroids as well. Remy Peacock MD
--- NOTE | 2017-12-18 16:20 | PN ---
DATE: 12/18/2017 SUBJECTIVE: The patient is seen in CCU, bed 3. Patient is now extubated. Patient is responsive, alert. PHYSICAL EXAMINATION: VITAL SIGNS: T-max is 98.8. Telemetry shows sinus rhythm, heart rate 67, 87, 78, blood pressure 124/95, 133/77, 132/78, 131/82, respirations 20, O2 saturation is 98% to 100%. HEENT: Head examination, normocephalic, atraumatic. HEENT examination shows pinkish conjunctivae. Anicteric sclerae. No oropharyngeal lesion. NECK: No neck rigidity. Slight thyromegaly noted. CHEST: Kyphosis. LUNGS: Shows improved air entry, but no wheezing and rhonchi. CARDIOVASCULAR: S1, S2, regular rhythm. Positive systolic murmur, left sternal border, right second intercostal space, left second intercostal space. ABDOMEN: Soft, slightly protuberant. Positive bowel sound. GENITALIA: Female. RECTAL: Deferred. EXTREMITY: Shows positive SCDs. NEUROLOGIC: Patient is alert, awake, responsive. Able to move upper and lower extremities without assistance. Gait examination not tested. DIAGNOSTICS: On 12/18/2017, WBC 5.7, hemoglobin and hematocrit 11.2 and 34.8, platelet 151, granulocytes 83% segs. ABG fro m 12/18/2017, initial ABG, pH of 7.48, pCO2 of 44, pO2 of 154, bicarb 33, saturation 99.6. Repeat ABG pH of 7.43, pCO2 of 48, pO2 of 127, bicarb 32, saturation of 100% on 30%. Sodium 143, potassium 3.7, chloride 100, CO2 of 32, anion gap 15, BUN 27, creatinine 0.6, GFR greater than 60. Glucose 106, calcium 8.5, magnesium 2.1, AST 46, ALT 65. Vitamin D 25-hydroxy is 19.9. Thyroid profile reviewed. Hepatitis A, B, C serologies are negative. Blood cultures are negative. Chest x-ray shows no active disease. Echocardiogram was noted. IMPRESSION AND PLAN: 1. Status post acute ventilator dependent hypercarbic hypoxic respiratory failure with carbon dioxide narcosis and respiratory acidosis. 2. Status post extubation. 3. Hypertension. 4. Mild normocytic anemia with granulocytosis. 5. Acute hypercarbic hypoxic ventilator-dependent respiratory failure, status post extubation with respiratory acidosis, hypercarbia and carbon dioxide narcosis. 6. Prerenal kidney injury. 7. Transaminitis. 8. Hypovitaminosis D. 9. Hypertensive cardiovascular disease with repolarization abnormalities. 10. Left ventricular ejection fraction of 68%. 11. Moderate concentric left ventricular hypertrophy with grade 1 abnormal relaxation pattern. 12. Moderately dilated left atrium. 13. Moderately sclerotic aortic valve. 14. Moderately thickened mitral valve with moderate mitral regurgitation. 15. Trace tricuspid regurgitation. 16. Carbon dioxide narcosis. 17. Acute exacerbation of severe chronic obstructive pulmonary disease. 18. History of hypothyroidism. 19. History of pulmonary hypertension. 20. High-grade fever of 101 degrees Fahrenheit. 21. Deconditioning. 22. Gait dysfunction. 23. History o hyperlipidemia. 24. History of constipation. 25. History of hypovitaminosis D. 1. Acute hypercarbic hypercapnic hypoxic ventilator-dependent respiratory failure with severe respiratory acidosis. 2. Resolving bronchospasm. 3. Fever of 100.8. 4. Mild normocytic anemia. 5. Granulocytosis. 6. Hypercarbia. 7. CO2 narcosis. 8. Transaminitis. 9. History of hypothyroidism. 10. Hypertensive cardiovascular disease with T-wave inversion I, aVL, V1 to V6. 11. Borderline hypokalemia. 1. Ventilator-dependent acute hypercarbic hypercapnic hypoxic respiratory failure with severe respiratory acidosis. 2. Bronchospasm. 3. Acute exacerbation of chronic obstructive pulmonary disease. 4. Normocytic anemia with granulocytosis. 5. Hypercarbia and hypercapnia. 6. Carbon dioxide narcosis. 7. Severe respiratory acidosis and hypoxemia. 8. Metabolic alkalosis. 9. Hyperglycemia. 10. Transaminitis. 11. Mild acute exacerbation of right-sided diastolic congestive heart failure with elevated BNP. 12. Indeterminate troponin. 13. Sinus tachycardia. 14. Left axis deviation. 15. Ventilator-dependent respiratory failure. 16. History of hypertension, hyperlipidemia, hypothyroidism, hypovitaminosis D. Plan at this time, patient is presently extubated. Patient has been ordered to repeat labs. Patient has been ordered blood and urine cultures, are negative. CURRENT CONSULTATIONS: Cardiology and Pulmonary. CURRENT MEDICATIONS: Doxycycline 100 mg IV every 12 hours, Drisdol 50,000 units weekly, Lovenox 40 mg subcu daily, Protonix 40 mg IV daily, Rocephin 1 g IV daily, Solu-Medrol 40 mg IV every 8 hours, Tylenol suppository every 6 hours p.r.n., Xopenex nebulizer 0.63 mg [id number] every 12 hours p.r.n., Zofran 4 mg IV every 4 hours p.r.n. Patient has been ordered out of bed to chair. Patient has been ordered ADRIANNA stocking, SCDs, Occupational Therapy, Physical Therapy, Speech therapy. Swallow evaluation has been ordered. At present, patient will be also ordered Swallow and Speech evaluation. Patient will be monitored in ICU until cleared by Cardiology and Pulmonary for transfer out of the ICU. Patient will be continued on the above therapeutic intervention with monitoring of clinical subjective and objective data. Time spent is more than 35 minutes. Dictated and electronically signed, not read. Garett Rodríguez MD MTDBrandy
--- NOTE | 2017-12-18 23:43 | CARD ---
APPROVED REPORT EKG Measurement Heart [id number] <Conclusion> Normal sinus rhythm Possible Left atrial enlargement Left ventricular hypertrophy with repolarization abnormality Consider anterior ischemia Prolonged QT Abnormal ECG
[2017-12-19] MEDS: MethylPREDNISolone 40 mg Vial IVP SCH ×2 (04:20→21:19)
[2017-12-19 06:30] LABS: ARTERIAL BLOOD GAS HCO3 36.3 mmol/L (21-28); ARTERIAL BLOOD GAS O2 CAPACITY 16.6 mL/dl (16-24); ARTERIAL BLOOD GAS O2 CONTENT 16.6 ML/dl (15-23); ARTERIAL BLOOD GAS O2 SAT 99.7 % (95-98); ARTERIAL BLOOD GAS PH 7.31 (7.35-7.45); ARTERIAL BLOOD GAS TCO2 38.5 mmol.L (22-28)
[2017-12-19 06:57] LABS: ARTERIAL BLOOD GAS PCO2 72 mm/Hg (35-45)
[2017-12-19] MEDS: Levalbuterol 0.63 MG/3 ML Inhal Soln UD IH SCH ×3 (07:04→20:51)
[2017-12-19 07:53] LABS: ALB/GLOB RATIO 1.3 (1.1-1.8); ALBUMIN 3.9 g/dL (3.0-4.8); ALT/SGPT 54 U/L (7-56); AST/SGOT 33 U/L (14-36); BLOOD UREA NITROGEN 28 mg/dL (7-21); CALCIUM 8.4 mg/dL (8.4-10.5); GFR AFRICAN-AMERICAN > 60; GFR NON-AFRICAN AMERICAN > 60
[2017-12-19] MEDS ORDERED: Non Formulary Medication (Aspirin 325 mg) PO SCH (10:30)
[2017-12-19] MEDS ORDERED: Non Formulary Medication (Simvastatin [Simvastatin] 10 MG) PO SCH (10:30)
[2017-12-19] MEDS: Enoxaparin 40 mg Syringe SC SCH (10:35)
[2017-12-19] MEDS: Levothyroxine 50 MCG TAB PO SCH (10:35)
--- NOTE | 2017-12-19 10:37 | RAD ---
HISTORY: COPD/RESP FAILURE COMPARISON: 12/18/2017 FINDINGS: LUNGS: No active pulmonary disease. PLEURA: No significant pleural effusion identified, no pneumothorax apparent. CARDIOVASCULAR: Normal. OSSEOUS STRUCTURES: No significant abnormalities. VISUALIZED UPPER ABDOMEN: Normal. OTHER FINDINGS: None. IMPRESSION: No active disease.
[2017-12-19] MEDS: cefTRIAXone 1 gm 1 GM/100 ML BAG IVPB SCH (10:40)
--- NOTE | 2017-12-19 11:33 | PN ---
DATE: 12/19/2017 SUBJECTIVE: The patient was seen in ICU bed 3. The patient is alert, awake, responsive. The patient is having breakfast at present. The patient states that the patient is short of breath on minimal exertion. Denies any chest pain. The patient has been extubated yesterday. PHYSICAL EXAMINATION: VITAL SIGNS: T-max 98.6. Telemetry shows sinus rhythm, sinus tachycardia, heart rate 73, 72, 84, 95; respiratory rate 39, 33, 34, 36, 32; blood pressure 141/95, 115/76, 133/80, 133/73, 127/84, 124/76 and O2 sat 100%. HEENT: Head examination normocephalic, atraumatic. HEENT examination shows pinkish pale conjunctivae. Anicteric sclerae. No oropharyngeal lesion. No neck rigidity. CHEST: Kyphosis. LUNGS: Shows decreased air entry. Positive rhonchi, upper lung bauer bilaterally. CARDIOVASCULAR: S1, S2, regular rhythm. Positive systolic murmur, left sternal border, right second intercostal space, left second intercostal space. ABDOMEN: Slightly protuberant. GENITALIA: Female. RECTAL: Deferred. EXTREMITY: Shows no pitting edema, no calf tenderness, no Homans' sign. NEUROLOGICAL: The patient is alert, awake, responsive, is able to move upper and lower extremity without assistance. Gait examination is not tested. Cranial nerves II through XII limited. MUSCULOSKELETAL: Shows a body mass index of 23. VASCULAR: Palpable pulses. PSYCHIATRIC: Not applicable. DIAGNOSTICS: On 12/19/2017, ABG on 28% FIO2: PH of 7.31, pCO2 of 72, pO2 of 110, bicarb 36, O2 sat of 99.7. Sodium 142, potassium 4.5, chloride 102, CO2 of 33, anion gap 13, BUN 28, creatinine 0.6, GFR greater than 60, glucose 124, calcium 8.4, magnesium 2.5. LFTs are normal. Blood and MRSA and urine cultures negative. Chest x-ray from today shows prominent right pulmonary artery. Slight haziness of the right side noted. EKG not done today. IMPRESSION AND PLAN: 1. Acute hypercarbic hypoxic respiratory failure with respiratory acidosis and hypercarbia and carbon dioxide narcosis. 2. Acute exacerbation of chronic obstructive pulmonary disease. 3. Acute ventilator-dependent hypercarbic hypercapnic hypoxic respiratory failure with severe respiratory acidosis. 4. Bronchospasm. 5. Severe acute exacerbation of chronic obstructive pulmonary disease. 6. Tachycardia. 7. Tachypnea. 8. Fever. 9. Febrile illness. 10. Questionable systemic inflammatory response syndrome. 11. Mild normocytic anemia. 12. Granulocytosis. 13. Recurrent hypercarbia and hypercapnia with mild respiratory acidosis and recurrent respiratory acidosis. 14. Prerenal kidney injury. 15. Transaminitis. 16. Hypovitaminosis D. 17. History of hypothyroidism. 18. Left ventricular ejection fraction of 68%. 19. Moderate concentric left ventricular hypertrophy. 20. Grade 1 abnormal relaxation pattern. 21. Moderately dilated left atrium. 22. Moderately sclerotic aortic valve. 23. Moderately thickened mitral valve with moderate mitral regurgitation. 24. Mild oropharyngeal dysphagia with low to moderate risk for aspiration due to minimal fatigue, minimal oral residue, missing teeth and multiple swallows. 25. History of hyperlipidemia. 1. Status post acute ventilator dependent hypercarbic hypoxic respiratory failure with carbon dioxide narcosis and respiratory acidosis. 2. Status post extubation. 3. Hypertension. 4. Mild normocytic anemia with granulocytosis. 5. Acute hypercarbic hypoxic ventilator-dependent respiratory failure, status post extubation with respiratory acidosis, hypercarbia and carbon dioxide narcosis. 6. Prerenal kidney injury. 7. Transaminitis. 8. Hypovitaminosis D. 9. Hypertensive cardiovascular disease with repolarization abnormalities. 10. Left ventricular ejection fraction of 68%. 11. Moderate concentric left ventricular hypertrophy with grade 1 abnormal relaxation pattern. 12. Moderately dilated left atrium. 13. Moderately sclerotic aortic valve. 14. Moderately thickened mitral valve with moderate mitral regurgitation. 15. Trace tricuspid regurgitation. 16. Carbon dioxide narcosis. 17. Acute exacerbation of severe chronic obstructive pulmonary disease. 18. History of hypothyroidism. 19. History of pulmonary hypertension. 20. High-grade fever of 101 degrees Fahrenheit. 21. Deconditioning. 22. Gait dysfunction. 23. History o hyperlipidemia. 24. History of constipation. 25. History of hypovitaminosis D. 1. Acute hypercarbic hypercapnic hypoxic ventilator-dependent respiratory failure with severe respiratory acidosis. 2. Resolving bronchospasm. 3. Fever of 100.8. 4. Mild normocytic anemia. 5. Granulocytosis. 6. Hypercarbia. 7. CO2 narcosis. 8. Transaminitis. 9. History of hypothyroidism. 10. Hypertensive cardiovascular disease with T-wave inversion I, aVL, V1 to V6. 11. Borderline hypokalemia. 1. Ventilator-dependent acute hypercarbic hypercapnic hypoxic respiratory failure with severe respiratory acidosis. 2. Bronchospasm. 3. Acute exacerbation of chronic obstructive pulmonary disease. 4. Normocytic anemia with granulocytosis. 5. Hypercarbia and hypercapnia. 6. Carbon dioxide narcosis. 7. Severe respiratory acidosis and hypoxemia. 8. Metabolic alkalosis. 9. Hyperglycemia. 10. Transaminitis. 11. Mild acute exacerbation of right-sided diastolic congestive heart failure with elevated BNP. 12. Indeterminate troponin. 13. Sinus tachycardia. 14. Left axis deviation. 15. Ventilator-dependent respiratory failure. 16. History of hypertension, hyperlipidemia, hypothyroidism, hypovitaminosis D. Plan at this time, repeat ABG has been ordered to monitor the patient's hypercarbia and decreased pH. The patient has been ordered repeat labs. Repeat chest x-ray ordered. Cardiology, Pulmonary evaluation ordered. Current medications: Aspirin 325 mg p.o. daily, doxycycline 100 mg IV every 12, Drisdol 50,000 weekly, Lovenox 40 mg subcu daily, MiraLax 17 g daily, Protonix 40 mg twice a day, Rocephin 1 g IV daily, Zocor 10 mg daily or substitute statin, Solu-Medrol 40 mg IV every 8, Synthroid 50 mcg daily, Tylenol 650 mg suppository every 6 p.r.n., Xopenex nebulizer 0.63 mg every 6 hours [id number] every 2 hours p.r.n., Zofran 4 mg IV every 4 p.r.n. Chest x-ray has been ordered. The patient is on dysphagia modified consistency diet. The patient has been ordered head of the bed at 30 degrees, ADRIANNA stockings, sequential compression devices. Physical therapy, occupational therapy ordered. If patient's ABG continues to improve and the patient's hypercarbia resolves and respiratory acidosis resolves and if the patient is cleared by Cardiology and Pulmonary, the patient will be considered for transfer out of the ICU. Time spent in the entire management more than 35 minutes. Dictated and electronically signed, not read. Garett Rodríguez MD [facility] # [id number] MTDD
--- NOTE | 2017-12-19 12:51 | CP.CCUPN ---
<Fred Wong - Last Filed: 12/19/17 13:24> CCU Subjective - Physician Review Subjective (Free Text): 12/19/17 12:47 Patient seen and examined at bedside in ICU. No acute events overnight. Was extubated to Bipap yesterday, tolerating well. This AM, seen without any supplemental O2, and is completely awake/alert/oriented x4 (self, location, year , president). No appreciable somnolence/lethargy, following all commands appropriately, and has no acute complaints; denies shortness of breath, chest pain, nausea, sensation of throat swelling/mass in throat, throat pain, or hoarseness. CCU Objective - Vital Signs / Intake & Output Vital Signs (Last 4 hours): Vital Signs Pulse Resp BP Pulse Ox 12/19/17 11:00 74 32 H 141/86 100 12/19/17 10:50 73 18 100 12/19/17 10:40 71 27 H 100 12/19/17 10:30 66 17 100 12/19/17 10:20 63 29 H 95 12/19/17 10:10 72 26 H 100 12/19/17 10:02 78 39 H 132/77 97 12/19/17 10:00 79 20 95 12/19/17 09:50 74 44 H 100 12/19/17 09:40 79 29 H 100 12/19/17 09:30 82 45 H 100 12/19/17 09:20 82 39 H 100 12/19/17 09:10 81 41 H 100 12/19/17 09:00 81 41 H 119/63 100 12/19/17 08:50 83 39 H 100 Intake and Output (Last 8hrs): Intake & Output 12/18/17 12/19/17 12/19/17 22:59 06:59 14:59 Intake Total 210 350 Output Total 300 325 Balance -90 25 Weight 54.204 kg Intake: IV 210 100 Left Antecubital 200 100 Left Hand 10 Oral 0 250 Output: Urine 300 325 Urethral ([place]) 300 325 Other: # Bowel Movements 0 1 - Physical Exam Head: Positive for: Atraumatic, Normocephalic Pupils: Positive for: PERRL. Negative for: Non-Reactive, Pinpoint Extroacular Muscles: Positive for: EOMI. Negative for: Gaze Palsy, Entrapment Conjunctiva: Positive for: Normal. Negative for: Injected, Icteric Mouth: Positive for: Moist Mucous Membranes, Normal Lips, Normal Tounge. Negative for: Drooling Nose (External): Positive for: Atraumatic. Negative for: Abrasion, Laceration Nose (Internal): Positive for: Normal Inspection, No Active Bleeding. Negative for: Epistaxis Neck: Positive for: Normal Range of Motion. Negative for: Meningeal Signs, MIDLINE TENDERNESS, Paraspinal Tenderness, JVD Respiratory/Chest: Positive for: Clear to Auscultation, Good Air Exchange, Decreased Breath Sounds (mildly decreased breath sounds all bauer, again improved over prior exams). Negative for: Respiratory Distress, Accessory Muscle Use, Wheezes (no further wheezing appreciated on exam today), Rales, Rhonchi Cardiovascular: Positive for: Regular Rate and Rhythm, Normal S1, S2. Negative for: Murmurs, Irregular Rhythm, Tachycardic, Bradycardic Abdomen: Negative for: Tenderness, Distention, Peritoneal Signs Back: Positive for: Normal Inspection. Negative for: CVA Tenderness, Midline Tenderness, Paraspinal Tenderness Upper Extremity: Positive for: Normal Inspection, Normal ROM, NORMAL PULSES. Negative for: Cyanosis, Edema, Tenderness, Swelling, Erythema, Deformity Lower Extremity: Positive for: Normal Inspection, NORMAL PULSES, Normal ROM. Negative for: Edema, CALF TENDERNESS, Cyanosis, Tenderness, Swelling, Erythema, Deformity Neurological: Positive for: GCS=15, Speech Normal, Motor Func Grossly Intact, Normal Sensory Function, Other (following all commands appropriately, no appreciable lethargy/somnolence) Skin: Positive for: Warm, Dry, Normal Color. Negative for: Rashes Psychiatric: Positive for: Alert, Oriented x 3 (x4 (self, location, year, president)), Normal Insight, Normal Concentration, Normal Affect, Normal Mood - Medications Active Medications: Active Medications Generic Name Dose Route Start Last Admin Trade Name Freq PRN Reason Stop Dose Admin Acetaminophen 650 mg 12/16/17 19:09 12/17/17 08:30 Tylenol 650 Mg Supp RC 650 mg Q6H PRN Administration TEMP>=99.5F Aspirin 325 mg 12/20/17 10:00 Aspirin PO DAILY [facility] Atorvastatin Calcium 10 mg 12/19/17 17:00 Lipitor PO DIN [facility] Doxycycline Hyclate 100 mg 12/19/17 22:00 Doryx PO Q12 KRISTINE Enoxaparin Sodium 40 mg 12/17/17 10:00 12/19/17 10:35 Lovenox SC 40 mg DAILY K[facility]STINE Administration Protocol Ergocalciferol 1 cap 12/18/17 05:00 Drisdol 50,000 Intl Units Cap PO Q7D KRISTINE Ceftriaxone Sodium 1 gm in 100 mls @ 100 mls/hr 12/16/17 15:30 12/18/17 13:24 Rocephin 1 Gram Ivpb IVPB 12/20/17 10:59 100 mls/hr DAILY KRISTINE Administration Protocol Fentanyl Citrate 1,000 mcg in 100 mls @ 2 mls/hr 12/16/17 16:03 12/17/17 08: 05 Fentanyl Citrate/Sodium Chloride 1 Mg/100 Ml IV 0 mcg/hr .Q24H PRN 0 mls/hr TITRATE PER MD ORDER Titration Protocol 20 MCG/HR Midazolam 100 mg/100ml in NS 100 mg in 100 mls @ 1 mls/hr 12/16/17 16:02 08:05 Midazolam 100 Mg/100ml In Ns IV 0 mg/hr .Q24H PRN 0 mls/hr Sedation Titration Protocol 1 MG/HR Levalbuterol HCl 0.63 mg 12/16/17 15:37 Xopenex IH Q2 PRN Shortness of Breath Levalbuterol HCl 0.63 mg 12/19/17 10:00 Xopenex IH Q6H [facility]INE Levothyroxine Sodium 50 mcg 12/19/17 10:30 12/19/17 10:35 Synthroid PO 50 mcg DAILY [facility] Administration Methylprednisolone 40 mg 12/19/17 22:00 Solu-Medrol IVP Q12 K[facility]STINE Ondansetron HCl 4 mg 12/16/17 19:09 Zofran Inj IVP Q4H PRN Nausea/Vomiting Pantoprazole Sodium 40 mg 12/19/17 16:00 Protonix Ec Tab PO 0600,1600 [facility] Polyethylene Glycol 17 gm 12/19/17 10:30 Miralax PO DAILY [facility] - Patient Studies Lab Studies: Microbiology Studies 12/16/17 19:56 Blood Culture - Preliminary Blood NO GROWTH AFTER 48 HOURS 12/16/17 19:56 Blood Culture - Preliminary Blood NO GROWTH AFTER 48 HOURS 12/16/17 19:31 MRSA Culture (Admit) - Final Nose MRSA NOT DETECTED 12/16/17 17:00 Urine Culture - Final Urine,[place] No Growth (<1,000 CFU/ML) Lab Studies 12/19/17 12/19/17 12/19/17 Range/Units 11:31 08:07 06:30 pCO2 (35-45) mm/Hg pO2 (80-100) mm/Hg HCO3 (21-28) mmol/L ABG pH (7.35-7.45) ABG Total CO2 (22-28) mmol.L ABG O2 Saturation (95-98) % ABG O2 Content (15-23) ML/dl ABG Base Excess (-2.0-3.0) mmol/L ABG Hemoglobin (11.7-17.4) g/dL ABG Carboxyhemoglobin (0.5-1.5) % POC ABG HHb (Measured) (0-5) % ABG Methemoglobin (0.0-3.0) % ABG O2 Capacity (16-24) mL/dl Hgb O2 Saturation (95.0-98.0) % FiO2 % Sodium 142 (132-148) mmol/L Potassium 4.5 (3.6-5.0) mmol/L Chloride 102 (98-107) mmol/L Carbon Dioxide 33 (21-33) mmol/L Anion Gap 13 (10-20) BUN 28 H (7-21) mg/dL Creatinine 0.6 L (0.7-1.2) mg/dl Est GFR ( Amer) > 60 Est GFR (Non-Af Amer) > 60 POC Glucose (mg/dL) 183 H 245 H (65-110) mg/dL Random Glucose 124 H (70-110) mg/dL Calcium 8.4 (8.4-10.5) mg/dL Magnesium (1.7-2.2) mg/dL Total Bilirubin 0.2 (0.2-1.3) mg/dL AST 33 (14-36) U/L ALT 54 (7-56) U/L Alkaline Phosphatase 65 (38-126) U/L Total Protein 6.9 (5.8-8.3) g/dL Albumin 3.9 (3.0-4.8) g/dL Globulin 3.0 gm/dL Albumin/Globulin Ratio 1.3 (1.1-1.8) 12/19/17 12/19/17 12/18/17 Range/Units 06:26 05:30 22:49 pCO2 72 H* (35-45) mm/Hg pO2 110.0 H (80-100) mm/Hg HCO3 36.3 H (21-28) mmol/L ABG pH 7.31 L (7.35-7.45) ABG Total CO2 38.5 H (22-28) mmol.L ABG O2 Saturation 99.7 H (95-98) % ABG O2 Content 16.6 (15-23) ML/dl ABG Base Excess 7.7 H (-2.0-3.0) mmol/L ABG Hemoglobin 12.0 (11.7-17.4) g/dL ABG Carboxyhemoglobin 1.7 H (0.5-1.5) % POC ABG HHb (Measured) 0.3 (0-5) % ABG Methemoglobin 0.9 (0.0-3.0) % ABG O2 Capacity 16.6 (16-24) mL/dl Hgb O2 Saturation 97.2 (95.0-98.0) % FiO2 28.0 % Sodium (132-148) mmol/L Potassium (3.6-5.0) mmol/L Chloride (98-107) mmol/L Carbon Dioxide (21-33) mmol/L Anion Gap (10-20) BUN (7-21) mg/dL Creatinine (0.7-1.2) mg/dl Est GFR ( Amer) Est GFR (Non-Af Amer) POC Glucose (mg/dL) 104 (65-110) mg/dL Random Glucose (70-110) mg/dL Calcium (8.4-10.5) mg/dL Magnesium 2.5 H (1.7-2.2) mg/dL Total Bilirubin (0.2-1.3) mg/dL AST (14-36) U/L ALT (7-56) U/L Alkaline Phosphatase (38-126) U/L Total Protein (5.8-8.3) g/dL Albumin (3.0-4.8) g/dL Globulin gm/dL Albumin/Globulin Ratio (1.1-1.8) 12/18/17 Range/Units 16:08 pCO2 (35-45) mm/Hg pO2 (80-100) mm/Hg HCO3 (21-28) mmol/L ABG pH (7.35-7.45) ABG Total CO2 (22-28) mmol.L ABG O2 Saturation (95-98) % ABG O2 Content (15-23) ML/dl ABG Base Excess (-2.0-3.0) mmol/L ABG Hemoglobin (11.7-17.4) g/dL ABG Carboxyhemoglobin (0.5-1.5) % POC ABG HHb (Measured) (0-5) % ABG Methemoglobin (0.0-3.0) % ABG O2 Capacity (16-24) mL/dl Hgb O2 Saturation (95.0-98.0) % FiO2 % Sodium (132-148) mmol/L Potassium (3.6-5.0) mmol/L Chloride (98-107) mmol/L Carbon Dioxide (21-33) mmol/L Anion Gap (10-20) BUN (7-21) mg/dL Creatinine (0.7-1.2) mg/dl Est GFR ( Amer) Est GFR (Non-Af Amer) POC Glucose (mg/dL) 101 (65-110) mg/dL Random Glucose (70-110) mg/dL Calcium (8.4-10.5) mg/dL Magnesium (1.7-2.2) mg/dL Total Bilirubin (0.2-1.3) mg/dL AST (14-36) U/L ALT (7-56) U/L Alkaline Phosphatase (38-126) U/L Total Protein (5.8-8.3) g/dL Albumin (3.0-4.8) g/dL Globulin gm/dL Albumin/Globulin Ratio (1.1-1.8) Laboratory Results - last 24 hr 12/18/17 12/18/17 12/19/17 16:08 22:49 05:30 pCO2 pO2 HCO3 ABG pH ABG Total CO2 ABG O2 Saturation ABG O2 Content ABG Base Excess ABG Hemoglobin ABG Carboxyhemoglobin POC ABG HHb (Measured) ABG Methemoglobin ABG O2 Capacity Hgb O2 Saturation FiO2 Sodium Potassium Chloride Carbon Dioxide Anion Gap BUN Creatinine Est GFR ( Amer) Est GFR (Non-Af Amer) POC Glucose (mg/dL) 101 104 Random Glucose Calcium Magnesium 2.5 H Total Bilirubin AST ALT Alkaline Phosphatase Total Protein Albumin Globulin Albumin/Globulin Ratio 12/19/17 12/19/17 12/19/17 06:26 06:30 08:07 pCO2 72 H* pO2 110.0 H HCO3 36.3 H ABG pH 7.31 L ABG Total CO2 38.5 H ABG O2 Saturation 99.7 H ABG O2 Content 16.6 ABG Base Excess 7.7 H ABG Hemoglobin 12.0 ABG Carboxyhemoglobin 1.7 H POC ABG HHb (Measured) 0.3 ABG Methemoglobin 0.9 ABG O2 Capacity 16.6 Hgb O2 Saturation 97.2 FiO2 28.0 Sodium 142 Potassium 4.5 Chloride 102 Carbon Dioxide 33 Anion Gap 13 BUN 28 H Creatinine 0.6 L Est GFR ( Amer) > 60 Est GFR (Non-Af Amer) > 60 POC Glucose (mg/dL) 245 H Random Glucose 124 H Calcium 8.4 Magnesium Total Bilirubin 0.2 AST 33 ALT 54 Alkaline Phosphatase 65 Total Protein 6.9 Albumin 3.9 Globulin 3.0 Albumin/Globulin Ratio 1.3 12/19/17 11:31 pCO2 pO2 HCO3 ABG pH ABG Total CO2 ABG O2 Saturation ABG O2 Content ABG Base Excess ABG Hemoglobin ABG Carboxyhemoglobin POC ABG HHb (Measured) ABG Methemoglobin ABG O2 Capacity Hgb O2 Saturation FiO2 Sodium Potassium Chloride Carbon Dioxide Anion Gap BUN Creatinine Est GFR ( Amer) Est GFR (Non-Af Amer) POC Glucose (mg/dL) 183 H Random Glucose Calcium Magnesium Total Bilirubin AST ALT Alkaline Phosphatase Total Protein Albumin Globulin Albumin/Globulin Ratio Fingerstick Blood Sugar Results: 102 Review of Systems - Review of Systems All systems: reviewed and no additional remarkable complaints except (as per HPI ) Critical Care Progress Note - Nutrition Nutrition: Nutrition Category Date Time Status Dysphagia/Modified Consistency Diet [DIET] Diets 12/18/17 Breakfast Ordered Assessment/Plan - Assessment and Plan (Free Text) Assessment: This is a 72 yo AA F with PMH of COPD (with prior intubations for exacerbations) , asthma, HTN, and pulmonary HTN who presented to [facility] with worsening shortness of breath, found to be in hypercarbic respiratory failure, failing Bipap in ED, then intubated and placed on mechanical ventilation. She is s/p extubation yesterday, and is tolerating well. Pending eventual transfer from ICU to telemetry. Plan: Neuro: -off all sedation, awake and alert, following all commands appropriately -maintain normothermia; no further fevers overnight Cardio: -RRR, hemodynamically stable -hx diastolic heart failure, BNP 5130, Cardio following, appreciate all recs -Lovenox for DVT ppx -trops 0.4 x3 Pulm: -covered empirically for PNA with Rocephin, Doxy added as per PMD -procal negative, cultures negative at 48 hrs -solumedrol decreased to 40mg q12, xopenex q4 and q2 prn as per Pulm -extubated yesterday, tolerating well, conversant without dyspnea this AM while on no supplemental O2 and no appreciable desats during -AGB this AM reviewed, increased pCO2 to 73 (was 48) and decreased pH to 7.31 ( was 7.43); baseline pCO2 per prior charting appears to be 50's-60s, due to chronic severe COPD -Pulm consulted, appreciate their recs GI: -passed swallow study, -Protonix for GI ppx Renal: -monitor and replete electrolytes as needed -Cr stable at 0.7 Heme: -Hgb stable at 11.2 -Lovenox for DVT ppx ID: -empirically covered for possible PNA with rocephin, Doxy added as per PMD -procal negative, cultures negative at 48 hrs Dispo: ICU, s/p extubation, tolerating well on Bipap and room air, pending transfer to telemetry FEN: NPO pending swallow study Access: Peripheral IVs Consults: Cardio, Pulm Ppx: protonix for GI, Lovenox for DVT Patient seen, reviewed, examined with attending, Dr. Rodriguez <Ronny Rodriguez - Last Filed: 12/19/17 15:46> CCU Objective - Vital Signs / Intake & Output Vital Signs (Last 4 hours): Vital Signs Pulse 12/19/17 14:35 72 Intake and Output (Last 8hrs): Intake & Output 12/19/17 12/19/17 12/19/17 06:59 14:59 22:59 Intake Total 350 Output Total 325 Balance 25 Weight 119 lb 8 oz Intake: IV 100 Left Antecubital 100 Oral 250 Output: Urine 325 Urethral ([place]) 325 Other: # Bowel Movements 1 - Medications Active Medications: Active Medications Generic Name Dose Route Start Last Admin Trade Name Freq PRN Reason Stop Dose Admin Acetaminophen 650 mg 12/16/17 19:09 12/17/17 08:30 Tylenol 650 Mg Supp RC 650 mg Q6H PRN Administration TEMP>=99.5F Aspirin 325 mg 12/20/17 10:00 Aspirin PO DAILY [facility] Atorvastatin Calcium 10 mg 12/19/17 17:00 Lipitor PO DIN [facility] Doxycycline Hyclate 100 mg 12/19/17 22:00 Doryx PO Q12 KRISTINE Enoxaparin Sodium 40 mg 12/17/17 10:00 12/19/17 10:35 Lovenox SC 40 mg DAILY [facility] Administration Protocol Ergocalciferol 1 cap 12/18/17 05:00 Drisdol 50,000 Intl Units Cap PO Q7D KRISTINE Ceftriaxone Sodium 1 gm in 100 mls @ 100 mls/hr 12/16/17 15:30 12/19/17 10:40 Rocephin 1 Gram Ivpb IVPB 12/20/17 10:59 100 mls/hr DAILY K[facility]STINE Administration Protocol Fentanyl Citrate 1,000 mcg in 100 mls @ 2 mls/hr 12/16/17 16:03 12/17/17 08: 05 Fentanyl Citrate/Sodium Chloride 1 Mg/100 Ml IV 0 mcg/hr .Q24H PRN 0 mls/hr TITRATE PER MD ORDER Titration Protocol 20 MCG/HR Midazolam 100 mg/100ml in NS 100 mg in 100 mls @ 1 mls/hr 12/16/17 16:02 08:05 Midazolam 100 Mg/100ml In Ns IV 0 mg/hr .Q24H PRN 0 mls/hr Sedation Titration Protocol 1 MG/HR Levalbuterol HCl 0.63 mg 12/16/17 15:37 Xopenex IH Q2 PRN Shortness of Breath Levalbuterol HCl 0.63 mg 12/19/17 10:00 12/19/17 13:32 Xopenex IH 0.63 mg Q6H KRISTINE Administration Levothyroxine Sodium 50 mcg 12/19/17 10:30 12/19/17 10:35 Synthroid PO 50 mcg DAILY [facility] Administration Methylprednisolone 40 mg 12/19/17 22:00 Solu-Medrol IVP Q12 [facility] Ondansetron HCl 4 mg 12/16/17 19:09 Zofran Inj IVP Q4H PRN Nausea/Vomiting Pantoprazole Sodium 40 mg 12/19/17 16:00 Protonix Ec Tab PO 0600,1600 [facility] Polyethylene Glycol 17 gm 12/19/17 10:30 Miralax PO DAILY [facility] - Patient Studies Lab Studies: Microbiology Studies 12/16/17 19:56 Blood Culture - Preliminary Blood NO GROWTH AFTER 48 HOURS 12/16/17 19:56 Blood Culture - Preliminary Blood NO GROWTH AFTER 48 HOURS 12/16/17 19:31 MRSA Culture (Admit) - Final Nose MRSA NOT DETECTED Lab Studies 12/19/17 12/19/17 12/19/17 Range/Units 14:08 11:31 08:07 pCO2 (35-45) mm/Hg pO2 (80-100) mm/Hg HCO3 (21-28) mmol/L ABG pH (7.35-7.45) ABG Total CO2 (22-28) mmol.L ABG O2 Saturation (95-98) % ABG O2 Content (15-23) ML/dl ABG Base Excess (-2.0-3.0) mmol/L ABG Hemoglobin (11.7-17.4) g/dL ABG Carboxyhemoglobin (0.5-1.5) % POC ABG HHb (Measured) (0-5) % ABG Methemoglobin (0.0-3.0) % ABG O2 Capacity (16-24) mL/dl Hgb O2 Saturation (95.0-98.0) % FiO2 % Sodium (132-148) mmol/L Potassium (3.6-5.0) mmol/L Chloride (98-107) mmol/L Carbon Dioxide (21-33) mmol/L Anion Gap (10-20) BUN (7-21) mg/dL Creatinine (0.7-1.2) mg/dl Est GFR ( Amer) Est GFR (Non-Af Amer) POC Glucose (mg/dL) 124 H 183 H 245 H (65-110) mg/dL Random Glucose (70-110) mg/dL Calcium (8.4-10.5) mg/dL Magnesium (1.7-2.2) mg/dL Total Bilirubin (0.2-1.3) mg/dL AST (14-36) U/L ALT (7-56) U/L Alkaline Phosphatase (38-126) U/L Total Protein (5.8-8.3) g/dL Albumin (3.0-4.8) g/dL Globulin gm/dL Albumin/Globulin Ratio (1.1-1.8) 12/19/17 12/19/17 12/19/17 Range/Units 06:30 06:26 05:30 pCO2 72 H* (35-45) mm/Hg pO2 110.0 H (80-100) mm/Hg HCO3 36.3 H (21-28) mmol/L ABG pH 7.31 L (7.35-7.45) ABG Total CO2 38.5 H (22-28) mmol.L ABG O2 Saturation 99.7 H (95-98) % ABG O2 Content 16.6 (15-23) ML/dl ABG Base Excess 7.7 H (-2.0-3.0) mmol/L ABG Hemoglobin 12.0 (11.7-17.4) g/dL ABG Carboxyhemoglobin 1.7 H (0.5-1.5) % POC ABG HHb (Measured) 0.3 (0-5) % ABG Methemoglobin 0.9 (0.0-3.0) % ABG O2 Capacity 16.6 (16-24) mL/dl Hgb O2 Saturation 97.2 (95.0-98.0) % FiO2 28.0 % Sodium 142 (132-148) mmol/L Potassium 4.5 (3.6-5.0) mmol/L Chloride 102 (98-107) mmol/L Carbon Dioxide 33 (21-33) mmol/L Anion Gap 13 (10-20) BUN 28 H (7-21) mg/dL Creatinine 0.6 L (0.7-1.2) mg/dl Est GFR ( Amer) > 60 Est GFR (Non-Af Amer) > 60 POC Glucose (mg/dL) (65-110) mg/dL Random Glucose 124 H (70-110) mg/dL Calcium 8.4 (8.4-10.5) mg/dL Magnesium 2.5 H (1.7-2.2) mg/dL Total Bilirubin 0.2 (0.2-1.3) mg/dL AST 33 (14-36) U/L ALT 54 (7-56) U/L Alkaline Phosphatase 65 (38-126) U/L Total Protein 6.9 (5.8-8.3) g/dL Albumin 3.9 (3.0-4.8) g/dL Globulin 3.0 gm/dL Albumin/Globulin Ratio 1.3 (1.1-1.8) 12/18/17 12/18/17 Range/Units 22:49 16:08 pCO2 (35-45) mm/Hg pO2 (80-100) mm/Hg HCO3 (21-28) mmol/L ABG pH (7.35-7.45) ABG Total CO2 (22-28) mmol.L ABG O2 Saturation (95-98) % ABG O2 Content (15-23) ML/dl ABG Base Excess (-2.0-3.0) mmol/L ABG Hemoglobin (11.7-17.4) g/dL ABG Carboxyhemoglobin (0.5-1.5) % POC ABG HHb (Measured) (0-5) % ABG Methemoglobin (0.0-3.0) % ABG O2 Capacity (16-24) mL/dl Hgb O2 Saturation (95.0-98.0) % FiO2 % Sodium (132-148) mmol/L Potassium (3.6-5.0) mmol/L Chloride (98-107) mmol/L Carbon Dioxide (21-33) mmol/L Anion Gap (10-20) BUN (7-21) mg/dL Creatinine (0.7-1.2) mg/dl Est GFR ( Amer) Est GFR (Non-Af Amer) POC Glucose (mg/dL) 104 101 (65-110) mg/dL Random Glucose (70-110) mg/dL Calcium (8.4-10.5) mg/dL Magnesium (1.7-2.2) mg/dL Total Bilirubin (0.2-1.3) mg/dL AST (14-36) U/L ALT (7-56) U/L Alkaline Phosphatase (38-126) U/L Total Protein (5.8-8.3) g/dL Albumin (3.0-4.8) g/dL Globulin gm/dL Albumin/Globulin Ratio (1.1-1.8) Laboratory Results - last 24 hr 12/18/17 12/18/17 12/19/17 16:08 22:49 05:30 pCO2 pO2 HCO3 ABG pH ABG Total CO2 ABG O2 Saturation ABG O2 Content ABG Base Excess ABG Hemoglobin ABG Carboxyhemoglobin POC ABG HHb (Measured) ABG Methemoglobin ABG O2 Capacity Hgb O2 Saturation FiO2 Sodium Potassium Chloride Carbon Dioxide Anion Gap BUN Creatinine Est GFR ( Amer) Est GFR (Non-Af Amer) POC Glucose (mg/dL) 101 104 Random Glucose Calcium Magnesium 2.5 H Total Bilirubin AST ALT Alkaline Phosphatase Total Protein Albumin Globulin Albumin/Globulin Ratio 12/19/17 12/19/17 12/19/17 06:26 06:30 08:07 pCO2 72 H* pO2 110.0 H HCO3 36.3 H ABG pH 7.31 L ABG Total CO2 38.5 H ABG O2 Saturation 99.7 H ABG O2 Content 16.6 ABG Base Excess 7.7 H ABG Hemoglobin 12.0 ABG Carboxyhemoglobin 1.7 H POC ABG HHb (Measured) 0.3 ABG Methemoglobin 0.9 ABG O2 Capacity 16.6 Hgb O2 Saturation 97.2 FiO2 28.0 Sodium 142 Potassium 4.5 Chloride 102 Carbon Dioxide 33 Anion Gap 13 BUN 28 H Creatinine 0.6 L Est GFR ( Amer) > 60 Est GFR (Non-Af Amer) > 60 POC Glucose (mg/dL) 245 H Random Glucose 124 H Calcium 8.4 Magnesium Total Bilirubin 0.2 AST 33 ALT 54 Alkaline Phosphatase 65 Total Protein 6.9 Albumin 3.9 Globulin 3.0 Albumin/Globulin Ratio 1.3 12/19/17 12/19/17 11:31 14:08 pCO2 pO2 HCO3 ABG pH ABG Total CO2 ABG O2 Saturation ABG O2 Content ABG Base Excess ABG Hemoglobin ABG Carboxyhemoglobin POC ABG HHb (Measured) ABG Methemoglobin ABG O2 Capacity Hgb O2 Saturation FiO2 Sodium Potassium Chloride Carbon Dioxide Anion Gap BUN Creatinine Est GFR ( Amer) Est GFR (Non-Af Amer) POC Glucose (mg/dL) 183 H 124 H Random Glucose Calcium Magnesium Total Bilirubin AST ALT Alkaline Phosphatase Total Protein Albumin Globulin Albumin/Globulin Ratio Critical Care Progress Note - Nutrition Nutrition: Nutrition Category Date Time Status Dysphagia/Modified Consistency Diet [DIET] Diets 12/18/17 Breakfast Ordered Attending/Attestation - Attestation I have personally seen and examined this patient.: Yes I have fully participated in the care of the patient.: Yes I have reviewed all pertinent clinical information: Yes Notes (Text): 12/19/17 15:40 72 yo female with resolved hypercapnic respiratory failure, who was successfully extubated yesterday and had uneventful night. some c02 retention due to chronic hypoventilation, but clinically doing better on BPAP. Will continue BPAP throughout night. cont abx, steroid taper and bronchodilators. dvt /gi prophlaxis ccm time 40 min
--- NOTE | 2017-12-19 13:06 | PN ---
DATE: 12/19/2017 CARDIOLOGY FOLLOWUP SUBJECTIVE: The patient is comfortable. She denies shortness of breath. PHYSICAL EXAMINATION: VITAL SIGNS: Blood pressure is 115/76, heart rates in the 70s. NECK: Negative JVD. LUNGS: Without rales. HEART: Reveals S1, S2. EXTREMITIES: Without edema. LABORATORY DATA: Hemoglobin is 11.2. Chemistries: Glucose is 124. BUN and creatinine are unremarkable. IMPRESSION: 1. Status post respiratory failure. 2. Resolution of dyspnea. 3. Normal left ventricular function. 4. Mitral regurgitation. PLAN: Given these findings, once the patient is stable, consider a stress test to rule out coronary artery disease as the cause of her respiratory compromise. The patient should be transferred to telemetry today. Marcelo Parry MD
--- NOTE | 2017-12-19 15:18 | PN ---
DATE: 12/19/2017 PULMONARY PROGRESS NOTE SUBJECTIVE: The patient was seen and examined in the Intensive Care Unit on BiPAP. After successful extubation, she noted to retain CO2 and required application of BiPAP starting this morning. She is receiving a dose of intravenous steroids as well as intravenous antibiotic and nebulizer treatments. PHYSICAL EXAMINATION VITAL SIGNS: Temperature is 97.9, pulse 74, pulse oximetry is 100% on BiPAP. Blood pressure is 140/80. HEAD, EARS, NOSE, AND THROAT: Normocephalic and atraumatic. NECK: Supple with no jugular vein distentions. CARDIOVASCULAR: S1, S2. No S3. Regular. PULMONARY: Diminished breath sounds bilaterally with few expiratory wheezes and few crackles. GASTROINTESTINAL: Soft, nontender. No organomegaly. : Within normal limits EXTREMITIES: A 1+ pedal edema. NEUROLOGIC: Limited at the present time. SKIN: Dry; intact. ASSESSMENT: 1. Acute respiratory failure. 2. Exacerbation of chronic obstructive pulmonary disease. 3. Acute bronchitis. 4. Significant bronchospasm. PLAN: I just reviewed her arterial blood gases. She has mild respiratory acidosis, partially compensated with pH of 7.31, pCO2 of 72 and pO2 of 110. The reason for her CO2 retention may be elevated level of pO2. However, she is now better on BiPAP. I have discussed her case extensively with Dr. Rodriguez, assistant manager trainee. We decided to keep the patient on BiPAP with all conservative measures, inhalation therapy, antibiotic therapy and intravenous steroids. When her condition improves, we will assess the need for continuing BiPAP therapy upon discharge. Remy Peacock MD [facility]
[2017-12-19] MEDS: Pantoprazole 40 mg EC Tab PO SCH (16:42)
[2017-12-19] MEDS: POLYETHYLENE GLYCOL 3350 17 GM/Dose PACKET PO SCH (16:43)
[2017-12-20] MEDS: Levalbuterol 0.63 MG/3 ML Inhal Soln UD IH SCH ×6 (01:13→19:38)
[2017-12-20] MEDS: Pantoprazole 40 mg EC Tab PO SCH ×2 (05:10→17:28)
[2017-12-20 06:08] LABS: ALB/GLOB RATIO 1.3 (1.1-1.8); ALBUMIN 3.9 g/dL (3.0-4.8); ALT/SGPT 80 U/L (7-56); AST/SGOT 57 U/L (14-36); BILIRUBIN,DIRECT 0.1 mg/dL (0.0-0.4); BLOOD UREA NITROGEN 26 mg/dL (7-21); CALCIUM 8.5 mg/dL (8.4-10.5); GFR AFRICAN-AMERICAN > 60; GFR NON-AFRICAN AMERICAN > 60
[2017-12-20] MEDS ORDERED: Sod Polystyrene Sulf 15 gm/60 ml Susp PO ONE (06:48)
[2017-12-20 07:44] LABS: ARTERIAL BLOOD GAS HCO3 38.3 mmol/L (21-28); ARTERIAL BLOOD GAS HEMOGLOBIN 11.9 g/dL (11.7-17.4); ARTERIAL BLOOD GAS O2 CAPACITY 16.4 mL/dl (16-24); ARTERIAL BLOOD GAS O2 CONTENT 16.2 ML/dl (15-23); ARTERIAL BLOOD GAS O2 SAT 98.8 % (95-98); ARTERIAL BLOOD GAS PH 7.31 (7.35-7.45); ARTERIAL BLOOD GAS TCO2 40.6 mmol.L (22-28)
[2017-12-20 07:46] LABS: ARTERIAL BLOOD GAS PCO2 76 mm/Hg (35-45)
--- NOTE | 2017-12-20 09:31 | PN ---
DATE: 12/20/2017 SUBJECTIVE: The patient is seen lying in the bed in the CCU bed 3. The patient still appears to be dyspneic on exertion. Overnight nurses' notes were reviewed. No adverse events documented. REVIEW OF SYSTEMS: Thirteen system review was done, pertinent positive and negative for dyspnea on exertion. OBJECTIVE: VITAL SIGNS: T-max 898.2. Telemetry shows sinus rhythm, heart rate 76 to 78 to 80; blood pressure 157/84, 129/84, 124/80, 128/79; respirations 31, 36, 28, 27; O2 sat on BiPAP is 99 to 100%. INTAKE AND OUTPUT: Not documented. HEENT: Head examination, normocephalic and atraumatic. HEENT examination shows pinkish pale conjunctivae. Anicteric sclerae. No oropharyngeal lesion. Questionable mild thyromegaly. CHEST: Kyphosis, decreased air entry noted. No wheezing or rhonchi noted today. CARDIOVASCULAR: Examination, S1 and S2, regular rhythm. Positive systolic murmur, left sternal border, right second intercostal space, left second intercostal space. ABDOMEN: Soft. Positive bowel sounds. GENITALIA: Female. RECTAL: Deferred. EXTREMITIES: Shows no pitting edema, no calf tenderness, no Mckenna sign. MUSCULOSKELETAL: Examination shows a body mass index of 22.6. NEUROLOGIC: The patient is alert, awake, responsive. There is no gross deficit. Gait examination is not tested. DATA: ABG on 2 liters from today, pH of 7.31, pCO2 has gone up to 76, pO2 has gone down to 91, bicarbonate is 38, O2 sat is 98.8% on 2 liters. Sodium 143, potassium 5.2, chloride 100, CO2 37, anion gap 12, BUN 26, creatinine 0.5, GFR greater than 60. Glucose 130 and 1133, calcium 8.5, magnesium 2.5, AST 57, ALT 80. Rest of the electrolytes and LFTs are normal. Hepatitis A, B, C serologies are negative. Blood cultures, MRSA and urine cultures are all negative. Chest x-ray was done today. Portable chest x-ray was done, there is some increased haziness on the right lung. IMPRESSION AND PLAN: 1. Acute ventilator-dependent acute hypercarbic, hypoxemic respiratory failure and carbon dioxide narcosis. 2. Hypertension. 3. Persistent recurrent, refractor hypercarbia and mild respiratory acidosis. 4. Tachypnea. 5. Hypertension. 6. Mild normocytic anemia. 7. Granulocytosis. 8. Mild non-hemolyzed hyperkalemia. 9. Prerenal kidney injury. 10. Hyperglycemia. 11. Transaminitis. 12. Hypovitaminosis D. 13. Left ventricular ejection fraction of 68% with concentric left ventricular hypertrophy and grade 1 abnormal relaxation pattern. 14. Moderately dilated left atrium. 15. Moderately sclerotic aortic valve. 16. Moderately thickened mitral valve with moderate mitral regurgitation. 17. Hyperlipidemia. 18. Constipation. 1. Acute hypercarbic hypoxic respiratory failure with respiratory acidosis and hypercarbia and carbon dioxide narcosis. 2. Acute exacerbation of chronic obstructive pulmonary disease. 3. Acute ventilator-dependent hypercarbic hypercapnic hypoxic respiratory failure with severe respiratory acidosis. 4. Bronchospasm. 5. Severe acute exacerbation of chronic obstructive pulmonary disease. 6. Tachycardia. 7. Tachypnea. 8. Fever. 9. Febrile illness. 10. Questionable systemic inflammatory response syndrome. 11. Mild normocytic anemia. 12. Granulocytosis. 13. Recurrent hypercarbia and hypercapnia with mild respiratory acidosis and recurrent respiratory acidosis. 14. Prerenal kidney injury. 15. Transaminitis. 16. Hypovitaminosis D. 17. History of hypothyroidism. 18. Left ventricular ejection fraction of 68%. 19. Moderate concentric left ventricular hypertrophy. 20. Grade 1 abnormal relaxation pattern. 21. Moderately dilated left atrium. 22. Moderately sclerotic aortic valve. 23. Moderately thickened mitral valve with moderate mitral regurgitation. 24. Mild oropharyngeal dysphagia with low to moderate risk for aspiration due to minimal fatigue, minimal oral residue, missing teeth and multiple swallows. 25. History of hyperlipidemia. 1. Status post acute ventilator dependent hypercarbic hypoxic respiratory failure with carbon dioxide narcosis and respiratory acidosis. 2. Status post extubation. 3. Hypertension. 4. Mild normocytic anemia with granulocytosis. 5. Acute hypercarbic hypoxic ventilator-dependent respiratory failure, status post extubation with respiratory acidosis, hypercarbia and carbon dioxide narcosis. 6. Prerenal kidney injury. 7. Transaminitis. 8. Hypovitaminosis D. 9. Hypertensive cardiovascular disease with repolarization abnormalities. 10. Left ventricular ejection fraction of 68%. 11. Moderate concentric left ventricular hypertrophy with grade 1 abnormal relaxation pattern. 12. Moderately dilated left atrium. 13. Moderately sclerotic aortic valve. 14. Moderately thickened mitral valve with moderate mitral regurgitation. 15. Trace tricuspid regurgitation. 16. Carbon dioxide narcosis. 17. Acute exacerbation of severe chronic obstructive pulmonary disease. 18. History of hypothyroidism. 19. History of pulmonary hypertension. 20. High-grade fever of 101 degrees Fahrenheit. 21. Deconditioning. 22. Gait dysfunction. 23. History o hyperlipidemia. 24. History of constipation. 25. History of hypovitaminosis D. 1. Acute hypercarbic hypercapnic hypoxic ventilator-dependent respiratory failure with severe respiratory acidosis. 2. Resolving bronchospasm. 3. Fever of 100.8. 4. Mild normocytic anemia. 5. Granulocytosis. 6. Hypercarbia. 7. CO2 narcosis. 8. Transaminitis. 9. History of hypothyroidism. 10. Hypertensive cardiovascular disease with T-wave inversion I, aVL, V1 to V6. 11. Borderline hypokalemia. 1. Ventilator-dependent acute hypercarbic hypercapnic hypoxic respiratory failure with severe respiratory acidosis. 2. Bronchospasm. 3. Acute exacerbation of chronic obstructive pulmonary disease. 4. Normocytic anemia with granulocytosis. 5. Hypercarbia and hypercapnia. 6. Carbon dioxide narcosis. 7. Severe respiratory acidosis and hypoxemia. 8. Metabolic alkalosis. 9. Hyperglycemia. 10. Transaminitis. 11. Mild acute exacerbation of right-sided diastolic congestive heart failure with elevated BNP. 12. Indeterminate troponin. 13. Sinus tachycardia. 14. Left axis deviation. 15. Ventilator-dependent respiratory failure. 16. History of hypertension, hyperlipidemia, hypothyroidism, hypovitaminosis D. PLAN: At this time, the patient has been ordered repeat labs.. The patient has been ordered out of bed to chair. The patient will be continued on close followup with Cardiology and Pulmonary. CURRENT MEDICATIONS: Aspirin 325 mg p.o. daily, doxycycline 100 mg p.o. every 12 hours, Drisdol 50,000 units weekly. The patient is ordered a small dose of Kayexalate 15 g stat for hyperkalemia, Lipitor 10 mg daily, Lovenox 40 mg subcutaneous daily, MiraLax 17 g daily, Protonix 40 mg daily, Rocephin 1 g IV daily, Solu-Medrol 40 mg IV every 12 hours, Synthroid 50 mcg daily, Tylenol 650 mg suppository every 6 hours p.r.n., Xopenex nebulizer every 6 hours round the clock every 2 hours p.r.n. and Zofran 4 mg IV every 4 hours p.r.n. The patient is on dysphagia modified consistency diet, out of bed has been ordered.. The patient will be considered for possible transfer out of the ICU once the patient's respiratory status has improved significantly with resolution of the hypercarbia and respiratory acidosis and after the patient is cleared by Cardiology and Pulmonary. Time spent in the entire management more than 35 minutes. Dictated and electronically signed, not read. Graett Rodríguez MD MTDD
[2017-12-20] MEDS: Ergocalciferol 50,000 Intl Units Cap PO SCH (10:07)
[2017-12-20] MEDS: Levothyroxine 50 MCG TAB PO SCH (10:07)
[2017-12-20] MEDS: POLYETHYLENE GLYCOL 3350 17 GM/Dose PACKET PO SCH (10:08)
[2017-12-20] MEDS: MethylPREDNISolone 40 mg Vial IVP SCH (10:08)
[2017-12-20] MEDS: cefTRIAXone 1 gm 1 GM/100 ML BAG IVPB SCH (10:08)
[2017-12-20] MEDS: Enoxaparin 40 mg Syringe SC SCH (10:08)
--- NOTE | 2017-12-20 10:21 | PN ---
DATE: 12/20/2017 HIRED WORKER NOTE SUBJECTIVE: Ms. Daniels is resting in bed, ready to eat breakfast with nasal cannula. She had her BiPAP on overnight, but this morning with a nasal cannula, she is very comfortable. No complaints of increased shortness of breath, cough, wheezing, chest congestion. Does have complaints of a little irritated throat. No fever, chills, nausea or vomiting. No chest pain. PHYSICAL EXAMINATION: VITAL SIGNS: Note that her temperature is 98, her pulse is 80, respirations are 31 and her BP is 157/84, O2 saturation is 100%. HEENT: Head is atraumatic, normocephalic. Eyes reactive to light. Ears, nose and throat seemed to be within normal limits. NECK: Supple. No JVD. No thyroid enlargement or lymph nodes. HEART: Has regular rate and rhythm. Normal S1, S2. LUNGS: Reveal decreased breath sounds at the bases. ABDOMEN: Soft, nontender. Decreased bowel sounds. GENITALIA: Deferred. RECTAL: Deferred. MUSCULOSKELETAL: No joint deformities. EXTREMITIES: Reveal trace lower extremity edema. NEUROLOGIC: She seemed to be grossly intact. DATA: As far as her laboratories are concerned, her CBC is pending and her sodium is 143, potassium 5.2, chloride is 100, CO2 of 37 with a BUN of 26, creatinine of 0.5 and a glucose of 133. Chest x-ray reveals no infiltrates, this is an unofficial reading. IMPRESSION: My impression is that this patient has acute exacerbation of chronic obstructive pulmonary disease with respiratory failure and hypercapnia. She has history of congestive heart failure, pulmonary hypertension and hypertension. PLAN: As far as our plan, we will continue with BiPAP as needed. The patient is on aspirin, doxycycline, Lipitor, Levaquin, Solu-Medrol, Versed, Xopenex and Zofran p.r.n. for any nauseousness. We will continue to follow closely and treat aggressively along with the other consultants and the primary care doctor. Jesus Caldera MD
--- NOTE | 2017-12-20 11:02 | RAD ---
HISTORY: COPD COMPARISON: Comparison made with prior study 12/19/2017 FINDINGS: LUNGS: No acute consolidation. Lung bauer appear slightly overinflated possibly secondary to underlying COPD. Clinical correlation recommended. PLEURA: No significant pleural effusion identified, no pneumothorax apparent. CARDIOVASCULAR: Heart appears mildly enlarged. OSSEOUS STRUCTURES: No significant abnormalities. VISUALIZED UPPER ABDOMEN: Normal. OTHER FINDINGS: None. IMPRESSION: Mild hyperinflation; findings could represent underlying mild COPD. No acute infiltrates
--- NOTE | 2017-12-20 13:07 | PN ---
DATE: 12/20/2017 PULMONARY PROGRESS NOTE LOCATION: Room 129, bed 3. SUBJECTIVE: The patient is not on BiPAP at the present time. She is comfortable, sitting in bed, able to converse easily. She denies any respiratory complaints at this time. PHYSICAL EXAMINATION: VITAL SIGNS: Stable. She is afebrile, 98; pulse 70; respiratory rate 18; oxygen saturation 100% on room air; blood pressure 140/80. HEENT: Normocephalic and atraumatic. NECK: Supple. No JVD. No lymphadenopathy. No bruit. CARDIOVASCULAR: Regular rhythm. S1, S2 without murmur, gallop or rub. CHEST: Global decrease in breath sounds, but no rales, rhonchi or wheezes appreciated. ABDOMEN: Soft. Bowel sounds normoactive without mass, guarding, rebound or organomegaly. EXTREMITIES: Reveal trace edema. No clubbing or cyanosis. NEUROLOGIC: No focal findings. SKIN: Dry; intact DATA: Chest x-ray done this morning shows clear lung bauer with mild hyperinflation. ASSESSMENT: 1. Status post acute respiratory failure. 2. Exacerbation of chronic obstructive pulmonary disease, resolved. 3. Status post acute bronchitis. PLAN: Continue bronchodilators. Followup arterial blood gas. May continue BiPAP at night. We will discuss followup with Dr. Stef Rodriguez, the lead technical architect in the unit. Decrease corticosteroids. Continue antibiotics. We will follow closely with you. We will decide on the need for further treatment and followup once discharged. Thank you for the opportunity to follow this liv patient. Abner Swan MD MIGUEL
[2017-12-20] MEDS: MethylPREDNISolone 40 mg Vial IV SCH (21:39)
[2017-12-21] MEDS: Levalbuterol 0.63 MG/3 ML Inhal Soln UD IH SCH ×5 (01:23→20:05)
[2017-12-21 06:10] LABS: GRAN # 3.74 (1.4-6.5); GRAN % 82.2 % (50.0-68.0); HEMOGLOBIN 13.1 g/dL (12.0-16.0); LYMPH # 0.6 (1.2-3.4); LYMPH % 14.1 % (22.0-35.0); MEAN CELL VOLUME 95.5 fl (80.0-105.0); MEAN CORPUSCULAR HEMOGLOBIN 29.4 pg (25.0-35.0); MEAN CORPUSCULAR HGB CONC 30.8 g/dl (31.0-37.0); MEAN PLATELET VOLUME 11.7 fl (7.0-11.0); MONO # 0.2 (0.1-0.6); MONO % 3.7 % (1.0-6.0); RBC 4.45 10^6/uL (3.5-6.1); RED CELL DISTRIBUTION WIDTH 14.3 % (11.5-14.5); WHITE BLOOD COUNT 4.6 10^3/ul (4.5-11.0)
[2017-12-21 06:17] LABS: ALB/GLOB RATIO 1.3 (1.1-1.8); ALBUMIN 4.1 g/dL (3.0-4.8); ALT/SGPT 100 U/L (7-56); AST/SGOT 63 U/L (14-36); BILIRUBIN,DIRECT 0.1 mg/dL (0.0-0.4); BLOOD UREA NITROGEN 16 mg/dL (7-21); CALCIUM 8.8 mg/dL (8.4-10.5); GFR AFRICAN-AMERICAN > 60; GFR NON-AFRICAN AMERICAN > 60
[2017-12-21] MEDS ORDERED: Dextrose 50% SYRINGE Inj (50 ml) IVP ONE (06:20)
[2017-12-21] MEDS ORDERED: Insulin Regular 1 UNITS/0.01 ML ML SC ONE (06:25)
[2017-12-21] MEDS: Pantoprazole 40 mg EC Tab PO SCH ×2 (07:15→15:22)
[2017-12-21] MEDS: Enoxaparin 40 mg Syringe SC SCH (09:52)
[2017-12-21] MEDS: Levothyroxine 50 MCG TAB PO SCH (09:52)
[2017-12-21] MEDS: MethylPREDNISolone 40 mg Vial IV SCH ×3 (09:52→17:30)
[2017-12-21] MEDS: POLYETHYLENE GLYCOL 3350 17 GM/Dose PACKET PO SCH (09:53)
[2017-12-21 11:48] LABS: ARTERIAL BLOOD GAS HEMOGLOBIN 12.5 g/dL (11.7-17.4); ARTERIAL BLOOD GAS O2 CAPACITY 17.1 mL/dl (16-24); ARTERIAL BLOOD GAS O2 CONTENT 16.3 ML/dl (15-23); ARTERIAL BLOOD GAS O2 SAT 95.5 % (95-98); ARTERIAL BLOOD GAS PCO2 90 mm/Hg (35-45); ARTERIAL BLOOD GAS PH 7.31 (7.35-7.45); ARTERIAL BLOOD GAS TCO2 48.1 mmol.L (22-28)
[2017-12-21 12:09] LABS: ARTERIAL BLOOD GAS HCO3 45.3 mmol/L (21-28)
[2017-12-21] MEDS: Sod Polystyrene Sulf 15 gm/60 ml Susp PO SCH ×2 (12:14→14:41)
--- NOTE | 2017-12-21 12:20 | PN ---
DATE: 12/21/2017 STRENGTH AND CONDITIONING COACH NOTE SUBJECTIVE: Ms. Daniels is resting in the chair this morning, eating breakfast. No complaints of shortness of breath, cough, wheezing, chest congestion. She is on nasal cannula and no episodes of confusion. She does have some mild dyspnea on exertion with moving around too much. No fever, chills. No chest pain. PHYSICAL EXAMINATION: VITAL SIGNS: Physical exam note that her temperature is 98.2, her pulse is 72, respirations of 27 and BP is 143/115, O2 saturation is 100%. HEENT: Head is atraumatic, normocephalic. Eyes reactive to light. Ear, nose and throat seemed to be within normal limits. NECK: Supple. No JVD. No thyroid enlargement. No lymph nodes. HEART: Has regular rate and rhythm. Normal S1, S2. LUNGS: Reveal decreased breath sounds bilaterally with occasional expiratory wheeze. ABDOMEN: Soft. Decreased bowel sounds. GENITALIA AND RECTAL: Deferred. MUSCULOSKELETAL: No joint deformities. EXTREMITIES: Reveal no significant edema. NEUROLOGICAL: She seemed to be grossly intact. LABORATORY DATA: As far as her laboratories are concerned, her white count is 4.6, hemoglobin is 13.1, hematocrit 42.5 with platelets of 186,000. Her sodium is 142, potassium 5.7, chloride 93, CO2 of 44 with a BUN of 16 and a creatinine of 0.5, glucose of 163. IMPRESSION: As far as my impression, the patient has acute exacerbation of her COPD with respiratory failure and hypercapnia. She has a history of congestive heart failure, pulmonary hypertension and systemic hypertension. PLAN: We will continue with BiPAP as needed. Out of bed to chair. The patient is on aspirin, doxycycline, Lipitor, Levaquin, Solu-Medrol, Versed, Xopenex and we will continue to treat aggressively along with the other consultants and the primary care doctor. Jesus Caldera MD
[2017-12-21 14:35] LABS: ALB/GLOB RATIO 1.3 (1.1-1.8); ALBUMIN 4.4 g/dL (3.0-4.8); ALT/SGPT 137 U/L (7-56); AST/SGOT 127 U/L (14-36); BLOOD UREA NITROGEN 15 mg/dL (7-21); CALCIUM 9.1 mg/dL (8.4-10.5); GFR AFRICAN-AMERICAN > 60; GFR NON-AFRICAN AMERICAN > 60
--- NOTE | 2017-12-21 16:28 | PN ---
DATE: 12/21/2017 PULMONARY PROGRESS NOTE SUBJECTIVE: The patient remains in the Intensive Care Unit, sitting in bed, comfortable, no acute distress. PHYSICAL EXAMINATION: VITAL SIGNS: Stable, afebrile. Temperature, T-max 98.8; pulse 70; respiratory rate 18; O2 sat of 100% on supplemental oxygen. HEENT: Normocephalic, atraumatic. NECK: Supple. No JVD. No lymphadenopathy. No bruit. CARDIOVASCULAR: Regular rhythm. S1, S2 without murmur, gallop or rub. CHEST: Global decrease in breath sounds. No rales or rhonchi or wheezes appreciated. ABDOMEN: Soft. Bowel sounds normoactive without mass, guarding or rebound. No organomegaly. EXTREMITIES: Reveal no clubbing, cyanosis or edema. NEUROLOGIC: Awake and alert. No focal findings. Chest x-ray shows clear lungs with mild pulmonary hyperventilation. No change from previous films. ASSESSMENT: 1. Status post acute respiratory failure. 2. Exacerbation of chronic obstructive pulmonary disease, now resolved. 3. Status post acute bronchitis. Continue inhaled bronchodilators and corticosteroids. We will discuss with Dr. Caldera, who is covering for Dr. Rodriguez. Decrease corticosteroids appropriately. Continue antibiotics and inhaled bronchodilators. We will follow closely with you during the course of this hospitalization. The patient should continue BiPAP as necessary and follow up with aggressive chest physical therapy. We will follow closely with you and decide on the need for further intervention as time goes on. Thank you for the opportunity to participate in the care of this patient. Abner Swan MD
--- NOTE | 2017-12-21 19:13 | PN ---
DATE: 12/21/2017 SUBJECTIVE: The patient is seen in room CCU, bed 3. Patient is out of bed to chair. Patient is complaining of shortness of breath. Overnight nurse's notes reviewed. Patient is also placed on the BiPAP mask because patient's today morning ABG shows more CO2 retention and hypercarbia. PHYSICAL EXAMINATION: VITAL SIGNS: T-max 98.9, telemetry shows sinus rhythm, heart rate 72-85, blood pressure is 143/115, 159/94, 142/81, 151/85, 142/90, 155/90; respirations 27, 40, 41, 33, 39, 36. O2 sat 98%-99%. GENERAL: Patient is sitting out of bed to chair. HEENT: Head examination normocephalic, atraumatic. HEENT examination shows pink conjunctivae, anicteric sclerae. No oropharyngeal lesion. No neck rigidity. CHEST: Kyphosis. LUNGS: Positive wheezing bilaterally in anterior and posterior lung bauer, decreased air entry. CARDIOVASCULAR: S1, S2, regular rhythm. Positive systolic murmur, left sternal border, right second intercostal space, left second intercostal space. ABDOMEN: Soft. Positive bowel sounds. No hepatosplenomegaly noted. GENITALIA: Female. RECTAL: Deferred. EXTREMITIES: Shows no pitting edema, no calf numbness, no Mckenna sign. NEUROLOGIC: The patient is alert, awake, oriented x3. She is able to move upper and lower extremity without assistance. Cranial nerves II through XII limited. Gait examination not tested. MUSCULOSKELETAL: Shows a body mass index of 31. DIAGNOSTIC DATA: On 12/21/2017, WBC of 4.6, hemoglobin and hematocrit of 13.1 and 42.5, platelet 186, granulocyte 82% seg. ABG from this morning 12/21/2017 on room air, pH of 7.31, pCO2 of 90 which has gone up from yesterday from 76, pO2 was down to 61 from 91, bicarb has gone up to 45 from 38, O2 sat is 95%. On this ABG, patient was placed on BiPAP. Sodium 142, potassium 5.7, chloride 93, CO2 of 44, anion gap 11, BUN 16, creatinine 0.5, GFR greater than 60, glucose 75, 163, 124, calcium 8.8, magnesium 2.3, AST 63, ALT 100. Hepatitis A, B, C serologies are negative. Microbiology: Blood, urine and MRSA are negative. Chest x-ray from December 21 was reviewed. Chest x-ray shows COPD with hyperinflation. IMPRESSION: 1. Acute exacerbation of chronic obstructive pulmonary disease. 2. Relapsing recurrent hypercarbia and respiratory acidosis. 3. Mild normocytic anemia with granulocytosis. 4. Non-hemolyzed hyperkalemia. 5. Metabolic alkalosis with rising pCO2. 6. Hyperglycemia. 7. Transaminitis. 8. Hypovitaminosis D. 9. Chronic obstructive pulmonary disease with pulmonary hyperinflation. 10. Left ventricular hypertrophy with repolarization abnormalities and possible anterior ischemic changes on the EKG. 11. Status post ventilator dependent. 12. Acute hypoxic hypercarbic respiratory failure with respiratory acidosis. 13. Acute exacerbation of chronic obstructive pulmonary disease with acute hypoxic respiratory failure with hypercapnia. 14. Acute exacerbation of chronic obstructive pulmonary disease with acute ventilator respiratory failure with hypercapnia. 15. Hypertensive cardiovascular disease with ejection fraction of 68%. 16. Concentric left ventricular hypertrophy with grade I abnormal relaxation patterns. 17. Moderately sclerotic aortic valve. 18. Moderate mitral regurgitation with moderately thickened mitral valve. 19. Trace tricuspid regurgitation. 1. Acute ventilator-dependent acute hypercarbic, hypoxemic respiratory failure and carbon dioxide narcosis. 2. Hypertension. 3. Persistent recurrent, refractor hypercarbia and mild respiratory acidosis. 4. Tachypnea. 5. Hypertension. 6. Mild normocytic anemia. 7. Granulocytosis. 8. Mild non-hemolyzed hyperkalemia. 9. Prerenal kidney injury. 10. Hyperglycemia. 11. Transaminitis. 12. Hypovitaminosis D. 13. Left ventricular ejection fraction of 68% with concentric left ventricular hypertrophy and grade 1 abnormal relaxation pattern. 14. Moderately dilated left atrium. 15. Moderately sclerotic aortic valve. 16. Moderately thickened mitral valve with moderate mitral regurgitation. 17. Hyperlipidemia. 18. Constipation. 1. Acute hypercarbic hypoxic respiratory failure with respiratory acidosis and hypercarbia and carbon dioxide narcosis. 2. Acute exacerbation of chronic obstructive pulmonary disease. 3. Acute ventilator-dependent hypercarbic hypercapnic hypoxic respiratory failure with severe respiratory acidosis. 4. Bronchospasm. 5. Severe acute exacerbation of chronic obstructive pulmonary disease. 6. Tachycardia. 7. Tachypnea. 8. Fever. 9. Febrile illness. 10. Questionable systemic inflammatory response syndrome. 11. Mild normocytic anemia. 12. Granulocytosis. 13. Recurrent hypercarbia and hypercapnia with mild respiratory acidosis and recurrent respiratory acidosis. 14. Prerenal kidney injury. 15. Transaminitis. 16. Hypovitaminosis D. 17. History of hypothyroidism. 18. Left ventricular ejection fraction of 68%. 19. Moderate concentric left ventricular hypertrophy. 20. Grade 1 abnormal relaxation pattern. 21. Moderately dilated left atrium. 22. Moderately sclerotic aortic valve. 23. Moderately thickened mitral valve with moderate mitral regurgitation. 24. Mild oropharyngeal dysphagia with low to moderate risk for aspiration due to minimal fatigue, minimal oral residue, missing teeth and multiple swallows. 25. History of hyperlipidemia. 1. Status post acute ventilator dependent hypercarbic hypoxic respiratory failure with carbon dioxide narcosis and respiratory acidosis. 2. Status post extubation. 3. Hypertension. 4. Mild normocytic anemia with granulocytosis. 5. Acute hypercarbic hypoxic ventilator-dependent respiratory failure, status post extubation with respiratory acidosis, hypercarbia and carbon dioxide narcosis. 6. Prerenal kidney injury. 7. Transaminitis. 8. Hypovitaminosis D. 9. Hypertensive cardiovascular disease with repolarization abnormalities. 10. Left ventricular ejection fraction of 68%. 11. Moderate concentric left ventricular hypertrophy with grade 1 abnormal relaxation pattern. 12. Moderately dilated left atrium. 13. Moderately sclerotic aortic valve. 14. Moderately thickened mitral valve with moderate mitral regurgitation. 15. Trace tricuspid regurgitation. 16. Carbon dioxide narcosis. 17. Acute exacerbation of severe chronic obstructive pulmonary disease. 18. History of hypothyroidism. 19. History of pulmonary hypertension. 20. High-grade fever of 101 degrees Fahrenheit. 21. Deconditioning. 22. Gait dysfunction. 23. History o hyperlipidemia. 24. History of constipation. 25. History of hypovitaminosis D. 1. Acute hypercarbic hypercapnic hypoxic ventilator-dependent respiratory failure with severe respiratory acidosis. 2. Resolving bronchospasm. 3. Fever of 100.8. 4. Mild normocytic anemia. 5. Granulocytosis. 6. Hypercarbia. 7. CO2 narcosis. 8. Transaminitis. 9. History of hypothyroidism. 10. Hypertensive cardiovascular disease with T-wave inversion I, aVL, V1 to V6. 11. Borderline hypokalemia. 1. Ventilator-dependent acute hypercarbic hypercapnic hypoxic respiratory failure with severe respiratory acidosis. 2. Bronchospasm. 3. Acute exacerbation of chronic obstructive pulmonary disease. 4. Normocytic anemia with granulocytosis. 5. Hypercarbia and hypercapnia. 6. Carbon dioxide narcosis. 7. Severe respiratory acidosis and hypoxemia. 8. Metabolic alkalosis. 9. Hyperglycemia. 10. Transaminitis. 11. Mild acute exacerbation of right-sided diastolic congestive heart failure with elevated BNP. 12. Indeterminate troponin. 13. Sinus tachycardia. 14. Left axis deviation. 15. Ventilator-dependent respiratory failure. 16. History of hypertension, hyperlipidemia, hypothyroidism, hypovitaminosis D. PLAN: At this time, patient will be placed back on BiPAP with setting of 12/7 FiO2 of 30%, rate of 14. In addition, patient's intravenous Solu-Medrol will be increased to 30 IV every 6 hours. Repeat labs ordered for the morning. Current consultations, Cardiology, Pulmonary. Current medications, aspirin 325 mg daily, doxycycline 100 mg p.o. every 12 hours, Drisdol [id number] weekly, Kayexalate 30 g x2 doses, Lipitor 10 mg daily, Lovenox 40 mg subcu daily, MiraLax 17 g daily, Protonix 40 mg daily, Solu-Medrol increased to 30 mg IV every 6 hours, Synthroid 50 mcg daily, Tylenol p.r.n. for fever suppository, Xopenex nebulizer 0.63 mg every 6 hours around the clock and every 2 hours p.r.n. Out of bed to chair, ADRIANNA stockings, SCDs, occupational therapy and physical therapy will be resumed, but patient is out of the ICU until patient is further stabilized regarding her pulmonary status. Dictated and electronically signed, not read. Garett Rodríguez MD MTDBrandy
[2017-12-21 23:13] LABS: ALB/GLOB RATIO 1.3 (1.1-1.8); ALBUMIN 4.1 g/dL (3.0-4.8); BLOOD UREA NITROGEN 19 mg/dL (7-21); CALCIUM 8.8 mg/dL (8.4-10.5); GFR AFRICAN-AMERICAN > 60; GFR NON-AFRICAN AMERICAN > 60
[2017-12-21 23:14] LABS: ALT/SGPT 190 U/L (7-56); AST/SGOT 137 U/L (14-36)
[2017-12-22] MEDS: Levalbuterol 0.63 MG/3 ML Inhal Soln UD IH SCH ×5 (01:38→20:34)
[2017-12-22] MEDS: MethylPREDNISolone 40 mg Vial IV SCH ×4 (02:25→19:25)
[2017-12-22 05:37] LABS: ARTERIAL BLOOD GAS HEMOGLOBIN 13.2 g/dL (11.7-17.4); ARTERIAL BLOOD GAS O2 CONTENT 15.4 ML/dl (15-23); ARTERIAL BLOOD GAS O2 SAT 85.5 % (95-98); ARTERIAL BLOOD GAS PH 7.33 (7.35-7.45); ARTERIAL BLOOD GAS TCO2 49.6 mmol.L (22-28)
[2017-12-22 06:22] LABS: ARTERIAL BLOOD GAS PCO2 89 mm/Hg (35-45)
[2017-12-22 06:23] LABS: ARTERIAL BLOOD GAS HCO3 46.9 mmol/L (21-28)
[2017-12-22] MEDS: Pantoprazole 40 mg EC Tab PO SCH ×2 (06:43→16:09)
[2017-12-22 06:51] LABS: GRAN # 3.51 (1.4-6.5); GRAN % 88.8 % (50.0-68.0); HEMOGLOBIN 13.3 g/dL (12.0-16.0); LYMPH # 0.3 (1.2-3.4); LYMPH % 8.4 % (22.0-35.0); MEAN CELL VOLUME 96.9 fl (80.0-105.0); MEAN CORPUSCULAR HEMOGLOBIN 29.4 pg (25.0-35.0); MEAN CORPUSCULAR HGB CONC 30.4 g/dl (31.0-37.0); MEAN PLATELET VOLUME 11.5 fl (7.0-11.0); MONO # 0.1 (0.1-0.6); MONO % 2.8 % (1.0-6.0); RBC 4.52 10^6/uL (3.5-6.1); RED CELL DISTRIBUTION WIDTH 14.4 % (11.5-14.5)
[2017-12-22 08:08] LABS: ALB/GLOB RATIO 1.2 (1.1-1.8); ALBUMIN 4.1 g/dL (3.0-4.8); ALT/SGPT 155 U/L (7-56); AST/SGOT 78 U/L (14-36); BILIRUBIN,DIRECT 0.1 mg/dL (0.0-0.4); BLOOD UREA NITROGEN 19 mg/dL (7-21); CALCIUM 8.6 mg/dL (8.4-10.5); GFR AFRICAN-AMERICAN > 60; GFR NON-AFRICAN AMERICAN > 60
[2017-12-22] MEDS: Levothyroxine 50 MCG TAB PO SCH (09:07)
[2017-12-22] MEDS: POLYETHYLENE GLYCOL 3350 17 GM/Dose PACKET PO SCH (09:07)
[2017-12-22] MEDS: Enoxaparin 40 mg Syringe SC SCH (09:07)
[2017-12-22] MEDS ORDERED: Levothyroxine 50 MCG TAB PO SCH (11:50)
[2017-12-22] MEDS ORDERED: Ipratropium 0.02% Inhal Soln (0.5 mg/2.5 ml) UD IH PRN (12:21)
[2017-12-22] MEDS ORDERED: Azithromycin 500MG/NS 250ml 500 MG/250 ML BAG IVPB SCH (12:30)
--- NOTE | 2017-12-22 13:26 | CP.PCM.PN ---
<Nu Sandoval - Last Filed: 12/22/17 13:47> Subjective - Date & Time of Evaluation Date of Evaluation: 12/22/17 Time of Evaluation: 13:24 - Subjective Subjective: Medicine Progress Note - Dr Rodríguez Service: Patient seen and examined at bedside. Per nursing no acute events overnight. Patient was extubated over the weekend and placed on bipap. Currently she is sating well on NC. Patient is speaking in complete sentences, states breathing is improving. Offers no other complaints at this time. Denies headaches, dizziness, cp, palpitations, abdominal pain, urinary symptoms, changes in bowel habits. Objective - Vital Signs/Intake and Output Vital Signs (last 24 hours): Temp Pulse Resp BP Pulse Ox 97.8 F 85 41 H 135/85 100 12/21/17 16:00 12/22/17 02:59 12/22/17 02:59 12/22/17 03:00 12/22/17 02:59 - Medications Medications: Current Medications Acetaminophen (Tylenol 650 Mg Supp) 650 mg RC Q6H PRN PRN Reason: TEMP>=99.5F Last Admin: 12/17/17 08:30 Dose: 650 mg Aspirin (Aspirin) 325 mg PO DAILY [facility] Last Admin: 12/22/17 09:07 Dose: 325 mg Atorvastatin Calcium (Lipitor) 10 mg PO DIN [facility] Last Admin: 12/21/17 17:09 Dose: 10 mg Budesonide (Pulmicort Respules) 1 mg IH [id number] [facility] Doxycycline Hyclate (Doryx) 100 mg PO Q12 [facility] Last Admin: 12/22/17 09:07 Dose: 100 mg Enoxaparin Sodium (Lovenox) 40 mg SC DAILY [facility] PRN Reason: Protocol Last Admin: 12/22/17 09:07 Dose: 40 mg Ergocalciferol (Drisdol 50,000 Intl Units Cap) 1 cap PO Q7D [facility] Last Admin: 12/20/17 10:07 Dose: 1 cap Azithromycin (Zithromax 500mg In Ns) 500 mg in 250 mls @ 167 mls/hr IVPB DAILY [facility] PRN Reason: Protocol Last Admin: 12/22/17 12:32 Dose: 167 mls/hr Ipratropium [place] (Atrovent) 0.5 mg IH [id number] [facility] Ipratropium [place] (Atrovent) 0.5 mg IH Q2H PRN PRN Reason: Shortness of Breath Levalbuterol HCl (Xopenex) 0.63 mg IH Q2 PRN PRN Reason: Shortness of Breath Levalbuterol HCl (Xopenex) 0.63 mg IH 0200,0800,1400,2000 [facility] Last Admin: 12/22/17 07:27 Dose: 0.63 mg Levothyroxine Sodium (Synthroid) 50 mcg PO DAILY [facility] Methylprednisolone (Solu-Medrol) 30 mg IV Q6H [facility] Last Admin: 12/22/17 12:25 Dose: 30 mg Ondansetron HCl (Zofran Inj) 4 mg IVP Q4H PRN PRN Reason: Nausea/Vomiting Pantoprazole Sodium (Protonix Ec Tab) 40 mg PO 0600,1600 [facility] Last Admin: 12/22/17 06:43 Dose: 40 mg Polyethylene Glycol (Miralax) 17 gm PO DAILY [facility] Last Admin: 12/22/17 09:07 Dose: 17 gm - Labs Labs: 12/22/17 05:40 12/22/17 05:40 PT 13.6 SECONDS (9.4-12.5) H 12/17/17 06:00 INR 1.18 (0.93-1.08) H 12/17/17 06:00 APTT 23.2 Seconds (25.1-36.5) L 12/17/17 06:00 - Constitutional Appears: Non-toxic, No Acute Distress - Head Exam Head Exam: ATRAUMATIC, NORMAL INSPECTION, NORMOCEPHALIC - Eye Exam Eye Exam: EOMI, Normal appearance Pupil Exam: NORMAL ACCOMODATION - ENT Exam ENT Exam: Mucous Membranes Moist - Neck Exam Neck Exam: Full ROM - Respiratory Exam Respiratory Exam: Decreased Breath Sounds, Wheezes. absent: Rales, Rhonchi, Respiratory Distress - Cardiovascular Exam Cardiovascular Exam: REGULAR RHYTHM, +S1, +S2 - GI/Abdominal Exam GI & Abdominal Exam: Soft, Normal Bowel Sounds. absent: Guarding, Rigid, Tenderness - Extremities Exam Extremities Exam: Normal Inspection - Back Exam Back Exam: NORMAL INSPECTION - Neurological Exam Neurological Exam: Alert, Awake, Oriented x3 - Psychiatric Exam Psychiatric exam: Normal Affect, Normal Mood - Skin Skin Exam: Dry, Normal Color, Warm Assessment and Plan - Assessment and Plan (Free Text) Assessment: A/P: Patient is a 72 yo AA F with PMH of COPD (with prior intubations for exacerbations), asthma, HTN, and pulmonary HTN who presented to [facility] with worsening shortness of breath, found to be in hypercarbic respiratory failure, failing Bipap in ED, then intubated and placed on mechanical ventilation. She is s/p extubation. Plan: Acute exacerbation of COPD with acute hypoxic respiratory failure with hypercapnia -Stable, afebrile -S/P extubation -Patient is still tachypnic on NC -Continue Solumedrol 30mg IV Q6H -Xopenex and Ipratroprium Q6H [facility], Q2H PRN SOB -Added Budesanide 1mg Q12H [facility] -Antibiotics: Doxycycline 100mg Q12, Azithromycin 500mg IVPB daily -Monitor daily ABGs -Bipap HS, PRN SOB -Activity: OOB to chair Relapsing recurrent hypercarbia and respiratory acidosis -ABG reviewed, patient is still not at baseline -Continue to Monitor daily ABGs -Pulmonary on consult, help appreciated Diastolic CHF, Moderate Mitral Regurgitation -Echo showed normal LVEF with Moderate Mitral Regurgitation -Cardiology consulted, help appreciated -Continue ASA and Lipitor Transaminitis -LFTs trending down -Will continue to monitor Hyperkalemia -S/P Kayexyalate -Continue to monitor Hypothyroidism -Continue Synthroid 50mcg daily Vitamin D Deficiency -Continue ergocalciferol 1 tab PO Q7D Plan discussed with Dr Marcos Sandoval DO PGY-1 <Garett Rodríguez U - Last Filed: 12/22/17 18:53> Objective - Vital Signs/Intake and Output Vital Signs (last 24 hours): Temp Pulse Resp BP Pulse Ox 97.4 F L 101 H 49 H 168/111 H 100 12/22/17 16:00 12/22/17 16:00 12/22/17 15:00 12/22/17 16:00 12/22/17 16:00 - Medications Medications: Current Medications Acetaminophen (Tylenol 650 Mg Supp) 650 mg RC Q6H PRN PRN Reason: TEMP>=99.5F Last Admin: 12/17/17 08:30 Dose: 650 mg Aspirin (Aspirin) 325 mg PO DAILY [facility] Last Admin: 12/22/17 09:07 Dose: 325 mg Atorvastatin Calcium (Lipitor) 10 mg PO DIN [facility] Last Admin: 12/22/17 17:42 Dose: 10 mg Budesonide (Pulmicort Respules) 1 mg IH [id number] [facility] Last Admin: 12/22/17 18:19 Dose: 1 mg Doxycycline Hyclate (Doryx) 100 mg PO Q12 [facility] Last Admin: 12/22/17 09:07 Dose: 100 mg Enoxaparin Sodium (Lovenox) 40 mg SC DAILY [facility] PRN Reason: Protocol Last Admin: 12/22/17 09:07 Dose: 40 mg Ergocalciferol (Drisdol 50,000 Intl Units Cap) 1 cap PO Q7D [facility] Last Admin: 12/20/17 10:07 Dose: 1 cap Azithromycin (Zithromax 500mg In Ns) 500 mg in 250 mls @ 167 mls/hr IVPB DAILY [facility] PRN Reason: Protocol Last Admin: 12/22/17 12:32 Dose: 167 mls/hr Ipratropium [place] (Atrovent) 0.5 mg IH [id number] [facility] Last Admin: 12/22/17 18:16 Dose: 0.5 mg Ipratropium [place] (Atrovent) 0.5 mg IH Q2H PRN PRN Reason: Shortness of Breath Levalbuterol HCl (Xopenex) 0.63 mg IH Q2 PRN PRN Reason: Shortness of Breath Levalbuterol HCl (Xopenex) 0.63 mg IH 0200,0800,1400,2000 [facility] Last Admin: 12/22/17 18:19 Dose: 0.63 mg Levothyroxine Sodium (Synthroid) 50 mcg PO DAILY [facility] Methylprednisolone (Solu-Medrol) 30 mg IV Q6H [facility] Last Admin: 12/22/17 12:25 Dose: 30 mg Ondansetron HCl (Zofran Inj) 4 mg IVP Q4H PRN PRN Reason: Nausea/Vomiting Pantoprazole Sodium (Protonix Ec Tab) 40 mg PO 0600,1600 [facility] Last Admin: 12/22/17 16:09 Dose: 40 mg Polyethylene Glycol (Miralax) 17 gm PO DAILY [facility] Last Admin: 12/22/17 09:07 Dose: 17 gm - Labs Labs: 12/22/17 05:40 12/22/17 05:40 PT 13.6 SECONDS (9.4-12.5) H 12/17/17 06:00 INR 1.18 (0.93-1.08) H 12/17/17 06:00 APTT 23.2 Seconds (25.1-36.5) L 12/17/17 06:00 Attending/Attestation - Attestation I have personally seen and examined this patient.: Yes I have fully participated in the care of the patient.: Yes I have reviewed all pertinent clinical information, including history, physical exam and plan: Yes Notes (Text): Please see/read my dictated notes.
[2017-12-22] MEDS: Ipratropium 0.02% Inhal Soln (0.5 mg/2.5 ml) UD IH SCH ×3 (13:30→20:33)
--- NOTE | 2017-12-22 14:02 | CP.CCUPN ---
<Venancio Olivera - Last Filed: 12/22/17 13:48> CCU Subjective - Physician Review Events Since Last Encounter (Free Text): 12/22/17 10:30A Patient seen and examined at bedside in ICU. No acute events overnight. Patient states she is feeling much better; was weaned off of bipap over the weekend. CCU Objective - Vital Signs / Intake & Output Intake and Output (Last 8hrs): Intake & Output 12/21/17 12/22/17 12/22/17 22:59 06:59 14:59 Intake Total 1200 Output Total 675 Balance 525 Intake: Oral 1200 Output: Urine 675 Urine, Voided 675 - Physical Exam Head: Positive for: Atraumatic, Normocephalic Pupils: Positive for: PERRL. Negative for: Non-Reactive, Pinpoint Extroacular Muscles: Positive for: EOMI. Negative for: Gaze Palsy, Entrapment Conjunctiva: Positive for: Normal. Negative for: Injected, Icteric Mouth: Positive for: Moist Mucous Membranes, Normal Lips, Normal Tounge. Negative for: Drooling Nose (External): Positive for: Atraumatic. Negative for: Abrasion, Laceration Nose (Internal): Positive for: Normal Inspection, No Active Bleeding. Negative for: Epistaxis Neck: Positive for: Normal Range of Motion. Negative for: Meningeal Signs, MIDLINE TENDERNESS, Paraspinal Tenderness, JVD Respiratory/Chest: Positive for: Clear to Auscultation, Good Air Exchange, Decreased Breath Sounds (mildly decreased breath sounds all bauer, again improved over prior exams). Negative for: Respiratory Distress, Accessory Muscle Use, Wheezes (no further wheezing appreciated on exam today), Rales, Rhonchi Cardiovascular: Positive for: Regular Rate and Rhythm, Normal S1, S2. Negative for: Murmurs, Irregular Rhythm, Tachycardic, Bradycardic Abdomen: Negative for: Tenderness, Distention, Peritoneal Signs Back: Positive for: Normal Inspection. Negative for: CVA Tenderness, Midline Tenderness, Paraspinal Tenderness Upper Extremity: Positive for: Normal Inspection, Normal ROM, NORMAL PULSES. Negative for: Cyanosis, Edema, Tenderness, Swelling, Erythema, Deformity Lower Extremity: Positive for: Normal Inspection, NORMAL PULSES, Normal ROM. Negative for: Edema, CALF TENDERNESS, Cyanosis, Tenderness, Swelling, Erythema, Deformity Neurological: Positive for: GCS=15, Speech Normal, Motor Func Grossly Intact, Normal Sensory Function, Other (following all commands appropriately, no appreciable lethargy/somnolence) Skin: Positive for: Warm, Dry, Normal Color. Negative for: Rashes Psychiatric: Positive for: Alert, Oriented x 3 (x4 (self, location, year, president)), Normal Insight, Normal Concentration, Normal Affect, Normal Mood - Medications Active Medications: Active Medications Generic Name Dose Route Start Last Admin Trade Name Freq PRN Reason Stop Dose Admin Acetaminophen 650 mg 12/16/17 19:09 12/17/17 08:30 Tylenol 650 Mg Supp RC 650 mg Q6H PRN Administration TEMP>=99.5F Aspirin 325 mg 12/20/17 10:00 12/22/17 09:07 Aspirin PO 325 mg DAILY SHARI Administration Atorvastatin Calcium 10 mg 12/19/17 17:00 12/21/17 17:09 Lipitor PO 10 mg DIN SHARI Administration Budesonide 1 mg 12/22/17 20:00 Pulmicort Respules IH [id number] SHARI Doxycycline Hyclate 100 mg 12/19/17 22:00 12/22/17 09:07 Doryx PO 100 mg Q12 SHARI Administration Enoxaparin Sodium 40 mg 12/17/17 10:00 12/22/17 09:07 Lovenox SC 40 mg DAILY SHARI Administration Protocol Ergocalciferol 1 cap 12/20/17 10:00 12/20/17 10:07 Drisdol 50,000 Intl Units Cap PO 1 cap Q7D SHARI Administration Azithromycin 500 mg in 250 mls @ 167 mls/hr 12/22/17 12:30 12/22/17 12:32 Zithromax 500mg In Ns IVPB 167 mls/hr DAILY SHARI Administration Protocol Ipratropium [place] 0.5 mg 12/22/17 14:00 12/22/17 13:30 Atrovent IH 0.5 mg [id number] SHARI Administration Ipratropium [place] 0.5 mg 12/22/17 12:21 Atrovent IH Q2H PRN Shortness of Breath Levalbuterol HCl 0.63 mg 12/16/17 15:37 Xopenex IH Q2 PRN Shortness of Breath Levalbuterol HCl 0.63 mg 12/22/17 08:00 12/22/17 13:30 Xopenex IH 0.63 mg 0200,0800,1400,2000 SHARI Administration Levothyroxine Sodium 50 mcg 12/23/17 06:30 Synthroid PO DAILY SHARI Methylprednisolone 30 mg 12/21/17 12:30 12/22/17 12:25 Solu-Medrol IV 30 mg Q6H SHARI Administration Ondansetron HCl 4 mg 12/16/17 19:09 Zofran Inj IVP Q4H PRN Nausea/Vomiting Pantoprazole Sodium 40 mg 12/19/17 16:00 12/22/17 06:43 Protonix Ec Tab PO 40 mg 0600,1600 SHARI Administration Polyethylene Glycol 17 gm 12/19/17 10:30 12/22/17 09:07 Miralax PO 17 gm DAILY SHARI Administration - Patient Studies Lab Studies: Microbiology Studies 12/16/17 19:56 Blood Culture - Final Blood NO GROWTH AFTER 5 DAYS Gram Stain - Final TEST NOT PERFORMED 12/16/17 19:56 Blood Culture - Final Blood NO GROWTH AFTER 5 DAYS Gram Stain - Final TEST NOT PERFORMED Lab Studies 12/22/17 12/22/17 12/22/17 Range/Units 07:42 05:49 05:40 WBC 4.0 L (4.5-11.0) 10^3/ul RBC 4.52 (3.5-6.1) 10^6/uL Hgb 13.3 (12.0-16.0) g/dL Hct 43.8 (36.0-48.0) % MCV 96.9 (80.0-105.0) fl MCH 29.4 (25.0-35.0) pg MCHC 30.4 L (31.0-37.0) g/dl RDW 14.4 (11.5-14.5) % Plt Count 186 (120.0-450.0) 10^3/uL MPV 11.5 H (7.0-11.0) fl Gran % 88.8 H (50.0-68.0) % Lymph % (Auto) 8.4 L (22.0-35.0) % [place] % (Auto) 2.8 (1.0-6.0) % Eos % (Auto) 0.0 L (1.5-5.0) % Baso % (Auto) 0.0 (0.0-3.0) % Gran # 3.51 (1.4-6.5) Lymph # (Auto) 0.3 L (1.2-3.4) [place] # (Auto) 0.1 (0.1-0.6) Eos # (Auto) 0.0 (0.0-0.7) Baso # (Auto) 0.00 (0.0-2.0) K/mm3 pCO2 (35-45) mm/Hg pO2 (80-100) mm/Hg HCO3 (21-28) mmol/L ABG pH (7.35-7.45) ABG Total CO2 (22-28) mmol.L ABG O2 Saturation (95-98) % ABG O2 Content (15-23) ML/dl ABG Base Excess (-2.0-3.0) mmol/L ABG Hemoglobin (11.7-17.4) g/dL ABG Carboxyhemoglobin (0.5-1.5) % POC ABG HHb (Measured) (0-5) % ABG Methemoglobin (0.0-3.0) % ABG O2 Capacity (16-24) mL/dl Hgb O2 Saturation (95.0-98.0) % FiO2 % Sodium (132-148) mmol/L Potassium (3.6-5.0) mmol/L Chloride (98-107) mmol/L Carbon Dioxide (21-33) mmol/L Anion Gap (10-20) BUN (7-21) mg/dL Creatinine (0.7-1.2) mg/dl Est GFR ( Amer) Est GFR (Non-Af Amer) POC Glucose (mg/dL) 114 H 124 H (65-110) mg/dL Random Glucose (70-110) mg/dL Calcium (8.4-10.5) mg/dL Magnesium (1.7-2.2) mg/dL Total Bilirubin (0.2-1.3) mg/dL Direct Bilirubin (0.0-0.4) mg/dL AST (14-36) U/L ALT (7-56) U/L Alkaline Phosphatase (38-126) U/L Total Protein (5.8-8.3) g/dL Albumin (3.0-4.8) g/dL Globulin gm/dL Albumin/Globulin Ratio (1.1-1.8) 12/22/17 12/22/17 12/21/17 Range/Units 05:40 05:30 23:49 WBC (4.5-11.0) 10^3/ul RBC (3.5-6.1) 10^6/uL Hgb (12.0-16.0) g/dL Hct (36.0-48.0) % MCV (80.0-105.0) fl MCH (25.0-35.0) pg MCHC (31.0-37.0) g/dl RDW (11.5-14.5) % Plt Count (120.0-450.0) 10^3/uL MPV (7.0-11.0) fl Gran % (50.0-68.0) % Lymph % (Auto) (22.0-35.0) % [place] % (Auto) (1.0-6.0) % Eos % (Auto) (1.5-5.0) % Baso % (Auto) (0.0-3.0) % Gran # (1.4-6.5) Lymph # (Auto) (1.2-3.4) [place] # (Auto) (0.1-0.6) Eos # (Auto) (0.0-0.7) Baso # (Auto) (0.0-2.0) K/mm3 pCO2 89 H* (35-45) mm/Hg pO2 42.0 L* (80-100) mm/Hg HCO3 46.9 H* (21-28) mmol/L ABG pH 7.33 L (7.35-7.45) ABG Total CO2 49.6 H (22-28) mmol.L ABG O2 Saturation 85.5 L (95-98) % ABG O2 Content 15.4 (15-23) ML/dl ABG Base Excess 16.5 H (-2.0-3.0) mmol/L ABG Hemoglobin 13.2 (11.7-17.4) g/dL ABG Carboxyhemoglobin 2.1 H (0.5-1.5) % POC ABG HHb (Measured) 14.1 H (0-5) % ABG Methemoglobin 0.7 (0.0-3.0) % ABG O2 Capacity 18.0 (16-24) mL/dl Hgb O2 Saturation 83.1 L (95.0-98.0) % FiO2 21.0 % Sodium 145 (132-148) mmol/L Potassium 4.0 (3.6-5.0) mmol/L Chloride 92 L (98-107) mmol/L Carbon Dioxide 46 H (21-33) mmol/L Anion Gap 11 (10-20) BUN 19 (7-21) mg/dL Creatinine 0.5 L (0.7-1.2) mg/dl Est GFR ( Amer) > 60 Est GFR (Non-Af Amer) > 60 POC Glucose (mg/dL) 103 (65-110) mg/dL Random Glucose 131 H (70-110) mg/dL Calcium 8.6 (8.4-10.5) mg/dL Magnesium 2.2 (1.7-2.2) mg/dL Total Bilirubin 0.2 (0.2-1.3) mg/dL Direct Bilirubin 0.1 (0.0-0.4) mg/dL AST 78 H D (14-36) U/L ALT 155 H (7-56) U/L Alkaline Phosphatase 72 (38-126) U/L Total Protein 7.3 (5.8-8.3) g/dL Albumin 4.1 (3.0-4.8) g/dL Globulin 3.3 gm/dL Albumin/Globulin Ratio 1.2 (1.1-1.8) 12/21/17 12/21/17 12/21/17 Range/Units 22:14 17:26 14:00 WBC (4.5-11.0) 10^3/ul RBC (3.5-6.1) 10^6/uL Hgb (12.0-16.0) g/dL Hct (36.0-48.0) % MCV (80.0-105.0) fl MCH (25.0-35.0) pg MCHC (31.0-37.0) g/dl RDW (11.5-14.5) % Plt Count (120.0-450.0) 10^3/uL MPV (7.0-11.0) fl Gran % (50.0-68.0) % Lymph % (Auto) (22.0-35.0) % [place] % (Auto) (1.0-6.0) % Eos % (Auto) (1.5-5.0) % Baso % (Auto) (0.0-3.0) % Gran # (1.4-6.5) Lymph # (Auto) (1.2-3.4) [place] # (Auto) (0.1-0.6) Eos # (Auto) (0.0-0.7) Baso # (Auto) (0.0-2.0) K/mm3 pCO2 (35-45) mm/Hg pO2 (80-100) mm/Hg HCO3 (21-28) mmol/L ABG pH (7.35-7.45) ABG Total CO2 (22-28) mmol.L ABG O2 Saturation (95-98) % ABG O2 Content (15-23) ML/dl ABG Base Excess (-2.0-3.0) mmol/L ABG Hemoglobin (11.7-17.4) g/dL ABG Carboxyhemoglobin (0.5-1.5) % POC ABG HHb (Measured) (0-5) % ABG Methemoglobin (0.0-3.0) % ABG O2 Capacity (16-24) mL/dl Hgb O2 Saturation (95.0-98.0) % FiO2 % Sodium 146 145 (132-148) mmol/L Potassium 4.4 4.0 (3.6-5.0) mmol/L Chloride 93 L 92 L (98-107) mmol/L Carbon Dioxide 47 H 44 H (21-33) mmol/L Anion Gap 10 13 (10-20) BUN 19 15 (7-21) mg/dL Creatinine 0.5 L 0.6 L (0.7-1.2) mg/dl Est GFR ( Amer) > 60 > 60 Est GFR (Non-Af Amer) > 60 > 60 POC Glucose (mg/dL) 84 (65-110) mg/dL Random Glucose 110 69 L (70-110) mg/dL Calcium 8.8 9.1 (8.4-10.5) mg/dL Magnesium (1.7-2.2) mg/dL Total Bilirubin 0.1 L 0.2 (0.2-1.3) mg/dL Direct Bilirubin (0.0-0.4) mg/dL AST 137 H 127 H D (14-36) U/L ALT 190 H 137 H (7-56) U/L Alkaline Phosphatase 73 67 (38-126) U/L Total Protein 7.2 7.6 (5.8-8.3) g/dL Albumin 4.1 4.4 (3.0-4.8) g/dL Globulin 3.1 3.2 gm/dL Albumin/Globulin Ratio 1.3 1.3 (1.1-1.8) Laboratory Results - last 24 hr 12/21/17 12/21/17 12/21/17 14:00 17:26 22:14 WBC RBC Hgb Hct MCV MCH MCHC RDW Plt Count MPV Gran % Lymph % (Auto) [place] % (Auto) Eos % (Auto) Baso % (Auto) Gran # Lymph # (Auto) [place] # (Auto) Eos # (Auto) Baso # (Auto) pCO2 pO2 HCO3 ABG pH ABG Total CO2 ABG O2 Saturation ABG O2 Content ABG Base Excess ABG Hemoglobin ABG Carboxyhemoglobin POC ABG HHb (Measured) ABG Methemoglobin ABG O2 Capacity Hgb O2 Saturation FiO2 Sodium 145 146 Potassium 4.0 4.4 Chloride 92 L 93 L Carbon Dioxide 44 H 47 H Anion Gap 13 10 BUN 15 19 Creatinine 0.6 L 0.5 L Est GFR ( Amer) > 60 > 60 Est GFR (Non-Af Amer) > 60 > 60 POC Glucose (mg/dL) 84 Random Glucose 69 L 110 Calcium 9.1 8.8 Magnesium Total Bilirubin 0.2 0.1 L Direct Bilirubin AST 127 H D 137 H ALT 137 H 190 H Alkaline Phosphatase 67 73 Total Protein 7.6 7.2 Albumin 4.4 4.1 Globulin 3.2 3.1 Albumin/Globulin Ratio 1.3 1.3 12/21/17 12/22/17 12/22/17 23:49 05:30 05:40 WBC RBC Hgb Hct MCV MCH MCHC RDW Plt Count MPV Gran % Lymph % (Auto) [place] % (Auto) Eos % (Auto) Baso % (Auto) Gran # Lymph # (Auto) [place] # (Auto) Eos # (Auto) Baso # (Auto) pCO2 89 H* pO2 42.0 L* HCO3 46.9 H* ABG pH 7.33 L ABG Total CO2 49.6 H ABG O2 Saturation 85.5 L ABG O2 Content 15.4 ABG Base Excess 16.5 H ABG Hemoglobin 13.2 ABG Carboxyhemoglobin 2.1 H POC ABG HHb (Measured) 14.1 H ABG Methemoglobin 0.7 ABG O2 Capacity 18.0 Hgb O2 Saturation 83.1 L FiO2 21.0 Sodium 145 Potassium 4.0 Chloride 92 L Carbon Dioxide 46 H Anion Gap 11 BUN 19 Creatinine 0.5 L Est GFR ( Amer) > 60 Est GFR (Non-Af Amer) > 60 POC Glucose (mg/dL) 103 Random Glucose 131 H Calcium 8.6 Magnesium 2.2 Total Bilirubin 0.2 Direct Bilirubin 0.1 AST 78 H D ALT 155 H Alkaline Phosphatase 72 Total Protein 7.3 Albumin 4.1 Globulin 3.3 Albumin/Globulin Ratio 1.2 12/22/17 12/22/17 12/22/17 05:40 05:49 07:42 WBC 4.0 L RBC 4.52 Hgb 13.3 Hct 43.8 MCV 96.9 MCH 29.4 MCHC 30.4 L RDW 14.4 Plt Count 186 MPV 11.5 H Gran % 88.8 H Lymph % (Auto) 8.4 L [place] % (Auto) 2.8 Eos % (Auto) 0.0 L Baso % (Auto) 0.0 Gran # 3.51 Lymph # (Auto) 0.3 L [place] # (Auto) 0.1 Eos # (Auto) 0.0 Baso # (Auto) 0.00 pCO2 pO2 HCO3 ABG pH ABG Total CO2 ABG O2 Saturation ABG O2 Content ABG Base Excess ABG Hemoglobin ABG Carboxyhemoglobin POC ABG HHb (Measured) ABG Methemoglobin ABG O2 Capacity Hgb O2 Saturation FiO2 Sodium Potassium Chloride Carbon Dioxide Anion Gap BUN Creatinine Est GFR ( Amer) Est GFR (Non-Af Amer) POC Glucose (mg/dL) 124 H 114 H Random Glucose Calcium Magnesium Total Bilirubin Direct Bilirubin AST ALT Alkaline Phosphatase Total Protein Albumin Globulin Albumin/Globulin Ratio Fingerstick Blood Sugar Results: 84 Critical Care Progress Note - Nutrition Nutrition: Nutrition Category Date Time Status Dysphagia/Modified Consistency Diet [DIET] Diets 12/18/17 Breakfast Ordered Assessment/Plan - Assessment and Plan (Free Text) Assessment: 72 yo AA F with pertinent PMH of COPD (with prior intubations for exacerbations) , asthma, and pulmonary HTN who presented to [facility] with worsening shortness of breath, found to be in hypercarbic respiratory failure, failing Bipap in ED, then intubated and placed on mechanical ventilation. Patient was extubated on . Initial ABG showed patient to be in severe respiratory acidosis with retention of CO2; patient was also altered as a result of Hypoxemic Hypercapneic Respiratory failure. Today, patient's pH is normalizing with metabolic compensation, but is still retaining CO2. However, patient is no longer on BiPap and is tolerating NC. At this time, more likely a picture of COPD exacerbation with overlying CHF exacerbation, as patient's BNP was elevated at >5000 and blood cultures and procal negative. Other chronic medical prolems: HTN Plan: Neuro: - Awake and alert, following all commands appropriately - Maintain normothermia Cardio: - Maintain regular rate and rhythm - Lovenox for DVT ppx; Daily ASA Pulm: - Hypoxic Hypercapneic Respiratory Failure Likely 2/2 Mixed COPD and CHF Exacerbation: - Covered empirically for PNA with Azithro, Doxy as per PMD - Solumedrol, Xopenex, Atrovent, Budesonide - Pulm consulted, appreciate their recs GI: - Protonix for GI ppx - Miralax Shari; Zofran PRN Renal: - Monitor and replete electrolytes as needed Heme: - Lovenox for DVT ppx ID: - Empirically covered for possible PNA with rocephin, Doxy added as per PMD Dispo: ICU, s/p extubation, tolerating well on Bipap and room air, pending transfer to telemetry FEN: Dysphagia/Modified Consistency Access: Peripheral IVs Consults: Cardio, Pulm Ppx: Protonix/Lovenox <Sheldon Modi - Last Filed: 12/22/17 14:54> CCU Objective - Vital Signs / Intake & Output Intake and Output (Last 8hrs): Intake & Output 12/21/17 12/22/17 12/22/17 22:59 06:59 14:59 Intake Total 1200 Output Total 675 Balance 525 Intake: Oral 1200 Output: Urine 675 Urine, Voided 675 - Medications Active Medications: Active Medications Generic Name Dose Route Start Last Admin Trade Name Freq PRN Reason Stop Dose Admin Acetaminophen 650 mg 12/16/17 19:09 12/17/17 08:30 Tylenol 650 Mg Supp RC 650 mg Q6H PRN Administration TEMP>=99.5F Aspirin 325 mg 12/20/17 10:00 12/22/17 09:07 Aspirin PO 325 mg DAILY SHARI Administration Atorvastatin Calcium 10 mg 12/19/17 17:00 12/21/17 17:09 Lipitor PO 10 mg DIN SHARI Administration Budesonide 1 mg 12/22/17 20:00 Pulmicort Respules IH [id number] SHARI Doxycycline Hyclate 100 mg 12/19/17 22:00 12/22/17 09:07 Doryx PO 100 mg Q12 SHARI Administration Enoxaparin Sodium 40 mg 12/17/17 10:00 12/22/17 09:07 Lovenox SC 40 mg DAILY SHARI Administration Protocol Ergocalciferol 1 cap 12/20/17 10:00 12/20/17 10:07 Drisdol 50,000 Intl Units Cap PO 1 cap Q7D SHARI Administration Azithromycin 500 mg in 250 mls @ 167 mls/hr 12/22/17 12:30 12/22/17 12:32 Zithromax 500mg In Ns IVPB 167 mls/hr DAILY SHARI Administration Protocol Ipratropium [place] 0.5 mg 12/22/17 14:00 12/22/17 13:30 Atrovent IH 0.5 mg [id number] SHARI Administration Ipratropium [place] 0.5 mg 12/22/17 12:21 Atrovent IH Q2H PRN Shortness of Breath Levalbuterol HCl 0.63 mg 12/16/17 15:37 Xopenex IH Q2 PRN Shortness of Breath Levalbuterol HCl 0.63 mg 12/22/17 08:00 12/22/17 13:30 Xopenex IH 0.63 mg 0200,0800,1400,2000 SHARI Administration Levothyroxine Sodium 50 mcg 12/23/17 06:30 Synthroid PO DAILY SHARI Methylprednisolone 30 mg 12/21/17 12:30 12/22/17 12:25 Solu-Medrol IV 30 mg Q6H SHARI Administration Ondansetron HCl 4 mg 12/16/17 19:09 Zofran Inj IVP Q4H PRN Nausea/Vomiting Pantoprazole Sodium 40 mg 12/19/17 16:00 12/22/17 06:43 Protonix Ec Tab PO 40 mg 0600,1600 SHARI Administration Polyethylene Glycol 17 gm 12/19/17 10:30 12/22/17 09:07 Miralax PO 17 gm DAILY SHARI Administration - Patient Studies Lab Studies: Microbiology Studies 12/16/17 19:56 Blood Culture - Final Blood NO GROWTH AFTER 5 DAYS Gram Stain - Final TEST NOT PERFORMED 12/16/17 19:56 Blood Culture - Final Blood NO GROWTH AFTER 5 DAYS Gram Stain - Final TEST NOT PERFORMED Lab Studies 12/22/17 12/22/17 12/22/17 Range/Units 07:42 05:49 05:40 WBC 4.0 L (4.5-11.0) 10^3/ul RBC 4.52 (3.5-6.1) 10^6/uL Hgb 13.3 (12.0-16.0) g/dL Hct 43.8 (36.0-48.0) % MCV 96.9 (80.0-105.0) fl MCH 29.4 (25.0-35.0) pg MCHC 30.4 L (31.0-37.0) g/dl RDW 14.4 (11.5-14.5) % Plt Count 186 (120.0-450.0) 10^3/uL MPV 11.5 H (7.0-11.0) fl Gran % 88.8 H (50.0-68.0) % Lymph % (Auto) 8.4 L (22.0-35.0) % [place] % (Auto) 2.8 (1.0-6.0) % Eos % (Auto) 0.0 L (1.5-5.0) % Baso % (Auto) 0.0 (0.0-3.0) % Gran # 3.51 (1.4-6.5) Lymph # (Auto) 0.3 L (1.2-3.4) [place] # (Auto) 0.1 (0.1-0.6) Eos # (Auto) 0.0 (0.0-0.7) Baso # (Auto) 0.00 (0.0-2.0) K/mm3 pCO2 (35-45) mm/Hg pO2 (80-100) mm/Hg HCO3 (21-28) mmol/L ABG pH (7.35-7.45) ABG Total CO2 (22-28) mmol.L ABG O2 Saturation (95-98) % ABG O2 Content (15-23) ML/dl ABG Base Excess (-2.0-3.0) mmol/L ABG Hemoglobin (11.7-17.4) g/dL ABG Carboxyhemoglobin (0.5-1.5) % POC ABG HHb (Measured) (0-5) % ABG Methemoglobin (0.0-3.0) % ABG O2 Capacity (16-24) mL/dl Hgb O2 Saturation (95.0-98.0) % FiO2 % Sodium (132-148) mmol/L Potassium (3.6-5.0) mmol/L Chloride (98-107) mmol/L Carbon Dioxide (21-33) mmol/L Anion Gap (10-20) BUN (7-21) mg/dL Creatinine (0.7-1.2) mg/dl Est GFR ( Amer) Est GFR (Non-Af Amer) POC Glucose (mg/dL) 114 H 124 H (65-110) mg/dL Random Glucose (70-110) mg/dL Calcium (8.4-10.5) mg/dL Magnesium (1.7-2.2) mg/dL Total Bilirubin (0.2-1.3) mg/dL Direct Bilirubin (0.0-0.4) mg/dL AST (14-36) U/L ALT (7-56) U/L Alkaline Phosphatase (38-126) U/L Total Protein (5.8-8.3) g/dL Albumin (3.0-4.8) g/dL Globulin gm/dL Albumin/Globulin Ratio (1.1-1.8) 12/22/17 12/22/17 12/21/17 Range/Units 05:40 05:30 23:49 WBC (4.5-11.0) 10^3/ul RBC (3.5-6.1) 10^6/uL Hgb (12.0-16.0) g/dL Hct (36.0-48.0) % MCV (80.0-105.0) fl MCH (25.0-35.0) pg MCHC (31.0-37.0) g/dl RDW (11.5-14.5) % Plt Count (120.0-450.0) 10^3/uL MPV (7.0-11.0) fl Gran % (50.0-68.0) % Lymph % (Auto) (22.0-35.0) % [place] % (Auto) (1.0-6.0) % Eos % (Auto) (1.5-5.0) % Baso % (Auto) (0.0-3.0) % Gran # (1.4-6.5) Lymph # (Auto) (1.2-3.4) [place] # (Auto) (0.1-0.6) Eos # (Auto) (0.0-0.7) Baso # (Auto) (0.0-2.0) K/mm3 pCO2 89 H* (35-45) mm/Hg pO2 42.0 L* (80-100) mm/Hg HCO3 46.9 H* (21-28) mmol/L ABG pH 7.33 L (7.35-7.45) ABG Total CO2 49.6 H (22-28) mmol.L ABG O2 Saturation 85.5 L (95-98) % ABG O2 Content 15.4 (15-23) ML/dl ABG Base Excess 16.5 H (-2.0-3.0) mmol/L ABG Hemoglobin 13.2 (11.7-17.4) g/dL ABG Carboxyhemoglobin 2.1 H (0.5-1.5) % POC ABG HHb (Measured) 14.1 H (0-5) % ABG Methemoglobin 0.7 (0.0-3.0) % ABG O2 Capacity 18.0 (16-24) mL/dl Hgb O2 Saturation 83.1 L (95.0-98.0) % FiO2 21.0 % Sodium 145 (132-148) mmol/L Potassium 4.0 (3.6-5.0) mmol/L Chloride 92 L (98-107) mmol/L Carbon Dioxide 46 H (21-33) mmol/L Anion Gap 11 (10-20) BUN 19 (7-21) mg/dL Creatinine 0.5 L (0.7-1.2) mg/dl Est GFR ( Amer) > 60 Est GFR (Non-Af Amer) > 60 POC Glucose (mg/dL) 103 (65-110) mg/dL Random Glucose 131 H (70-110) mg/dL Calcium 8.6 (8.4-10.5) mg/dL Magnesium 2.2 (1.7-2.2) mg/dL Total Bilirubin 0.2 (0.2-1.3) mg/dL Direct Bilirubin 0.1 (0.0-0.4) mg/dL AST 78 H D (14-36) U/L ALT 155 H (7-56) U/L Alkaline Phosphatase 72 (38-126) U/L Total Protein 7.3 (5.8-8.3) g/dL Albumin 4.1 (3.0-4.8) g/dL Globulin 3.3 gm/dL Albumin/Globulin Ratio 1.2 (1.1-1.8) 18 12/21/17 Range/Units 22:14 17:26 WBC (4.5-11.0) 10^3/ul RBC (3.5-6.1) 10^6/uL Hgb (12.0-16.0) g/dL Hct (36.0-48.0) % MCV (80.0-105.0) fl MCH (25.0-35.0) pg MCHC (31.0-37.0) g/dl RDW (11.5-14.5) % Plt Count (120.0-450.0) 10^3/uL MPV (7.0-11.0) fl Gran % (50.0-68.0) % Lymph % (Auto) (22.0-35.0) % [place] % (Auto) (1.0-6.0) % Eos % (Auto) (1.5-5.0) % Baso % (Auto) (0.0-3.0) % Gran # (1.4-6.5) Lymph # (Auto) (1.2-3.4) [place] # (Auto) (0.1-0.6) Eos # (Auto) (0.0-0.7) Baso # (Auto) (0.0-2.0) K/mm3 pCO2 (35-45) mm/Hg pO2 (80-100) mm/Hg HCO3 (21-28) mmol/L ABG pH (7.35-7.45) ABG Total CO2 (22-28) mmol.L ABG O2 Saturation (95-98) % ABG O2 Content (15-23) ML/dl ABG Base Excess (-2.0-3.0) mmol/L ABG Hemoglobin (11.7-17.4) g/dL ABG Carboxyhemoglobin (0.5-1.5) % POC ABG HHb (Measured) (0-5) % ABG Methemoglobin (0.0-3.0) % ABG O2 Capacity (16-24) mL/dl Hgb O2 Saturation (95.0-98.0) % FiO2 % Sodium 146 (132-148) mmol/L Potassium 4.4 (3.6-5.0) mmol/L Chloride 93 L (98-107) mmol/L Carbon Dioxide 47 H (21-33) mmol/L Anion Gap 10 (10-20) BUN 19 (7-21) mg/dL Creatinine 0.5 L (0.7-1.2) mg/dl Est GFR ( Amer) > 60 Est GFR (Non-Af Amer) > 60 POC Glucose (mg/dL) 84 (65-110) mg/dL Random Glucose 110 (70-110) mg/dL Calcium 8.8 (8.4-10.5) mg/dL Magnesium (1.7-2.2) mg/dL Total Bilirubin 0.1 L (0.2-1.3) mg/dL Direct Bilirubin (0.0-0.4) mg/dL AST 137 H (14-36) U/L ALT 190 H (7-56) U/L Alkaline Phosphatase 73 (38-126) U/L Total Protein 7.2 (5.8-8.3) g/dL Albumin 4.1 (3.0-4.8) g/dL Globulin 3.1 gm/dL Albumin/Globulin Ratio 1.3 (1.1-1.8) Laboratory Results - last 24 hr 12/21/17 12/21/17 12/21/17 17:26 22:14 23:49 WBC RBC Hgb Hct MCV MCH MCHC RDW Plt Count MPV Gran % Lymph % (Auto) [place] % (Auto) Eos % (Auto) Baso % (Auto) Gran # Lymph # (Auto) [place] # (Auto) Eos # (Auto) Baso # (Auto) pCO2 pO2 HCO3 ABG pH ABG Total CO2 ABG O2 Saturation ABG O2 Content ABG Base Excess ABG Hemoglobin ABG Carboxyhemoglobin POC ABG HHb (Measured) ABG Methemoglobin ABG O2 Capacity Hgb O2 Saturation FiO2 Sodium 146 Potassium 4.4 Chloride 93 L Carbon Dioxide 47 H Anion Gap 10 BUN 19 Creatinine 0.5 L Est GFR ( Amer) > 60 Est GFR (Non-Af Amer) > 60 POC Glucose (mg/dL) 84 103 Random Glucose 110 Calcium 8.8 Magnesium Total Bilirubin 0.1 L Direct Bilirubin AST 137 H ALT 190 H Alkaline Phosphatase 73 Total Protein 7.2 Albumin 4.1 Globulin 3.1 Albumin/Globulin Ratio 1.3 12/22/17 12/22/17 12/22/17 05:30 05:40 05:40 WBC 4.0 L RBC 4.52 Hgb 13.3 Hct 43.8 MCV 96.9 MCH 29.4 MCHC 30.4 L RDW 14.4 Plt Count 186 MPV 11.5 H Gran % 88.8 H Lymph % (Auto) 8.4 L [place] % (Auto) 2.8 Eos % (Auto) 0.0 L Baso % (Auto) 0.0 Gran # 3.51 Lymph # (Auto) 0.3 L [place] # (Auto) 0.1 Eos # (Auto) 0.0 Baso # (Auto) 0.00 pCO2 89 H* pO2 42.0 L* HCO3 46.9 H* ABG pH 7.33 L ABG Total CO2 49.6 H ABG O2 Saturation 85.5 L ABG O2 Content 15.4 ABG Base Excess 16.5 H ABG Hemoglobin 13.2 ABG Carboxyhemoglobin 2.1 H POC ABG HHb (Measured) 14.1 H ABG Methemoglobin 0.7 ABG O2 Capacity 18.0 Hgb O2 Saturation 83.1 L FiO2 21.0 Sodium 145 Potassium 4.0 Chloride 92 L Carbon Dioxide 46 H Anion Gap 11 BUN 19 Creatinine 0.5 L Est GFR ( Amer) > 60 Est GFR (Non-Af Amer) > 60 POC Glucose (mg/dL) Random Glucose 131 H Calcium 8.6 Magnesium 2.2 Total Bilirubin 0.2 Direct Bilirubin 0.1 AST 78 H D ALT 155 H Alkaline Phosphatase 72 Total Protein 7.3 Albumin 4.1 Globulin 3.3 Albumin/Globulin Ratio 1.2 12/22/17 12/22/17 05:49 07:42 WBC RBC Hgb Hct MCV MCH MCHC RDW Plt Count MPV Gran % Lymph % (Auto) [place] % (Auto) Eos % (Auto) Baso % (Auto) Gran # Lymph # (Auto) [place] # (Auto) Eos # (Auto) Baso # (Auto) pCO2 pO2 HCO3 ABG pH ABG Total CO2 ABG O2 Saturation ABG O2 Content ABG Base Excess ABG Hemoglobin ABG Carboxyhemoglobin POC ABG HHb (Measured) ABG Methemoglobin ABG O2 Capacity Hgb O2 Saturation FiO2 Sodium Potassium Chloride Carbon Dioxide Anion Gap BUN Creatinine Est GFR ( Amer) Est GFR (Non-Af Amer) POC Glucose (mg/dL) 124 H 114 H Random Glucose Calcium Magnesium Total Bilirubin Direct Bilirubin AST ALT Alkaline Phosphatase Total Protein Albumin Globulin Albumin/Globulin Ratio Critical Care Progress Note - Nutrition Nutrition: Nutrition Category Date Time Status Dysphagia/Modified Consistency Diet [DIET] Diets 12/18/17 Breakfast Ordered Assessment/Plan - Assessment and Plan (Free Text) Assessment: Patient seen and examined on rounds with resident, agree with note with following additions/exceptions: Patient is 72yo female with PMhx COPD (with prior intubations for exacerbations) , asthma, HTN, and pulmonary HTN, a/dw hypercapnic resp failure. Currently afebrile, HD stable, comfortable in NAD, on 2LNC, doing well, AAOx2 ABG with CHRONIC resp acidosis, compensated, with metabolic alkalosis COPD exacerbation Resp failure Pulm HTN rule out PNA Fever Recommend: - supp o2, goal sat 90%, BIPAP as needed - pulmonary follow up - Solumedrol 40mg IV Q12hr - Lorna Richards DC Doxy - Duonebs PRN - BP control - GI ppx - DVT ppx - stable, monitor in MICU
--- NOTE | 2017-12-22 16:55 | PN ---
DATE: 12/22/2017 CARDIOLOGY FOLLOWUP SUBJECTIVE: The patient's breathing is at its baseline. PHYSICAL EXAMINATION: VITAL SIGNS: Blood pressure is 135/85, the heart rate in the 80s. NECK: Negative JVD. LUNGS: Decreased breath signs bilaterally without rales. HEART: S1, S2. EXTREMITIES: Without edema. LABORATORY DATA: Glucose is 134, BUN and creatinine unremarkable. Hemoglobin is 13. IMPRESSION: 1. Status post respiratory failure. 2. Dyspnea, which is better. 3. Mitral regurgitation. 4. Left ventricular hypertrophy. 5. Good left ventricular function. PLAN: Given these findings, from a cardiac perspective, the patient can be transferred to telemetry today. We will begin to mobilize the patient. Marcelo Parry MD
[2017-12-22] MEDS: Budesonide 0.5 mg/2 ml Inhal Susp UD IH SCH ×2 (18:19→20:33)
[2017-12-23] MEDS: MethylPREDNISolone 40 mg Vial IV SCH ×2 (00:07→06:04)
[2017-12-23] MEDS: Levalbuterol 0.63 MG/3 ML Inhal Soln UD IH SCH ×4 (01:24→19:55)
[2017-12-23] MEDS: Ipratropium 0.02% Inhal Soln (0.5 mg/2.5 ml) UD IH SCH ×4 (01:24→19:55)
[2017-12-23 05:16] LABS: ARTERIAL BLOOD GAS HEMOGLOBIN 13.3 g/dL (11.7-17.4); ARTERIAL BLOOD GAS O2 CONTENT 16.8 ML/dl (15-23); ARTERIAL BLOOD GAS O2 SAT 93.3 % (95-98); ARTERIAL BLOOD GAS TCO2 52.1 mmol.L (22-28)
[2017-12-23 05:34] LABS: ARTERIAL BLOOD GAS PCO2 80 mm/Hg (35-45)
[2017-12-23 05:35] LABS: ARTERIAL BLOOD GAS HCO3 49.6 mmol/L (21-28)
[2017-12-23] MEDS: Pantoprazole 40 mg EC Tab PO SCH (06:04)
[2017-12-23] MEDS ORDERED: Levothyroxine 50 MCG TAB PO SCH (06:30)
[2017-12-23 06:55] LABS: GRAN # 4.22 (1.4-6.5); GRAN % 83.5 % (50.0-68.0); HEMOGLOBIN 13.9 g/dL (12.0-16.0); LYMPH # 0.6 (1.2-3.4); LYMPH % 12.7 % (22.0-35.0); MEAN CELL VOLUME 96.1 fl (80.0-105.0); MEAN CORPUSCULAR HGB CONC 31.2 g/dl (31.0-37.0); MEAN PLATELET VOLUME 11.4 fl (7.0-11.0); MONO # 0.2 (0.1-0.6); MONO % 3.8 % (1.0-6.0); RBC 4.64 10^6/uL (3.5-6.1); WHITE BLOOD COUNT 5.1 10^3/ul (4.5-11.0)
[2017-12-23] MEDS: Budesonide 0.5 mg/2 ml Inhal Susp UD IH SCH ×2 (07:18→19:55)
[2017-12-23 07:30] LABS: ALB/GLOB RATIO 1.3 (1.1-1.8); ALBUMIN 4.4 g/dL (3.0-4.8); ALT/SGPT 114 U/L (7-56); AST/SGOT 39 U/L (14-36); BILIRUBIN,DIRECT 0.1 mg/dL (0.0-0.4); BLOOD UREA NITROGEN 18 mg/dL (7-21); CALCIUM 9.2 mg/dL (8.4-10.5); GFR AFRICAN-AMERICAN > 60; GFR NON-AFRICAN AMERICAN > 60
--- NOTE | 2017-12-23 08:46 | PN ---
DATE: 12/22/2017 LOCATION: The patient is seen in CCU, bed 3. SUBJECTIVE: The patient is out of bed to chair. According to the patient and the patient's son, patient is out of breath on minimal exertion and patient has bqvipuvc-ce-eyxaad dyspnea on exertion with desaturation and hypercarbia. PHYSICAL EXAMINATION: VITAL SIGNS: T-max is 98.4. Telemetry shows sinus rhythm, heart rate 80s, 90s and low 100s. Blood pressure 161/79, 143/92, 140/85, 128/73; respiratory rate has been averaging around low to mid 30s per minute. O2 sat is 99%, 100%. INTAKE AND OUTPUT: . HEENT: Head examination, normocephalic and atraumatic. HEENT examination shows pink conjunctivae. Anicteric sclerae. No oropharyngeal lesion. NECK: No neck rigidity. CHEST: Kyphosis. LUNGS: Show decreased air entry. Slightly decreased wheezing, but positive present wheezing. But, decreased than yesterday. CARDIOVASCULAR: S1, S2, regular rhythm. Positive systolic murmur at left sternal border, right second intercostal space, left second intercostal space. ABDOMEN: Soft. Positive bowel sound. GENITALIA: Female. RECTAL: Examination is deferred. EXTREMITIES: Show no pitting edema, no calf tenderness, no Homans sign. MUSCULOSKELETAL: Shows a body mass index of 31.3. NEUROLOGIC: The patient is alert, awake, responsive, is able to move upper and lower extremity without assistance. DIAGNOSTICS: On 12/22/2017, WBC 4, hemoglobin and hematocrit 13.3 and 43.8, platelets 186, granulocytes 89% segs. ABG on 21% FiO2, pH of 7.33, PCO2 of 89, pO2 of 42, 47%, saturation of 85%. Sodium 145, potassium 4, chloride 92, CO2 of 46, anion gap 11, BUN 19, creatinine 0.5, GFR greater than 60; glucose 114, 124, 131; calcium 8.6 and magnesium 2.2. AST down to 78. ALT down to 155 from 190. Hepatitis A, B, C serologies . IMPRESSION AND PLAN: 1. Status post ventilator-dependent respiratory failure secondary to acute hypoxic hypercarbic respiratory failure with respiratory acidosis. 2. Acute exacerbation of chronic obstructive pulmonary disease. 3. Recurrent buvgk-eb-jvcxlwe hypoxic hypercarbic respiratory failure with persistent hypercarbia and hypoxemia and respiratory acidosis. 4. Tachycardia. 5. Uncontrolled hypertension. 6. Tachypnea. 7. Hypoxemia. 8. Leukopenia. 9. Granulocytosis. 10. Persistent recurrent eqstv-kr-quwkakp and acute recurrent hypoxic hypercarbic respiratory failure with respiratory acidosis. 11. Metabolic alkalosis. 12. Hyperglycemia. 13. Transaminitis. 14. Hypovitaminosis D. 15. Non-hemolyzed hyperkalemia. 16. Constipation. 17. Hypothyroidism. 18. Mild oropharyngeal dysphagia with bkc-eo-mkrhxykw aspiration risk secondary to minimal fatigue, minimal oral residue and missing teeth. 1. Acute exacerbation of chronic obstructive pulmonary disease. 2. Relapsing recurrent hypercarbia and respiratory acidosis. 3. Mild normocytic anemia with granulocytosis. 4. Non-hemolyzed hyperkalemia. 5. Metabolic alkalosis with rising pCO2. 6. Hyperglycemia. 7. Transaminitis. 8. Hypovitaminosis D. 9. Chronic obstructive pulmonary disease with pulmonary hyperinflation. 10. Left ventricular hypertrophy with repolarization abnormalities and possible anterior ischemic changes on the EKG. 11. Status post ventilator dependent. 12. Acute hypoxic hypercarbic respiratory failure with respiratory acidosis. 13. Acute exacerbation of chronic obstructive pulmonary disease with acute hypoxic respiratory failure with hypercapnia. 14. Acute exacerbation of chronic obstructive pulmonary disease with acute ventilator respiratory failure with hypercapnia. 15. Hypertensive cardiovascular disease with ejection fraction of 68%. 16. Concentric left ventricular hypertrophy with grade I abnormal relaxation patterns. 17. Moderately sclerotic aortic valve. 18. Moderate mitral regurgitation with moderately thickened mitral valve. 19. Trace tricuspid regurgitation. 1. Acute ventilator-dependent acute hypercarbic, hypoxemic respiratory failure and carbon dioxide narcosis. 2. Hypertension. 3. Persistent recurrent, refractor hypercarbia and mild respiratory acidosis. 4. Tachypnea. 5. Hypertension. 6. Mild normocytic anemia. 7. Granulocytosis. 8. Mild non-hemolyzed hyperkalemia. 9. Prerenal kidney injury. 10. Hyperglycemia. 11. Transaminitis. 12. Hypovitaminosis D. 13. Left ventricular ejection fraction of 68% with concentric left ventricular hypertrophy and grade 1 abnormal relaxation pattern. 14. Moderately dilated left atrium. 15. Moderately sclerotic aortic valve. 16. Moderately thickened mitral valve with moderate mitral regurgitation. 17. Hyperlipidemia. 18. Constipation. 1. Acute hypercarbic hypoxic respiratory failure with respiratory acidosis and hypercarbia and carbon dioxide narcosis. 2. Acute exacerbation of chronic obstructive pulmonary disease. 3. Acute ventilator-dependent hypercarbic hypercapnic hypoxic respiratory failure with severe respiratory acidosis. 4. Bronchospasm. 5. Severe acute exacerbation of chronic obstructive pulmonary disease. 6. Tachycardia. 7. Tachypnea. 8. Fever. 9. Febrile illness. 10. Questionable systemic inflammatory response syndrome. 11. Mild normocytic anemia. 12. Granulocytosis. 13. Recurrent hypercarbia and hypercapnia with mild respiratory acidosis and recurrent respiratory acidosis. 14. Prerenal kidney injury. 15. Transaminitis. 16. Hypovitaminosis D. 17. History of hypothyroidism. 18. Left ventricular ejection fraction of 68%. 19. Moderate concentric left ventricular hypertrophy. 20. Grade 1 abnormal relaxation pattern. 21. Moderately dilated left atrium. 22. Moderately sclerotic aortic valve. 23. Moderately thickened mitral valve with moderate mitral regurgitation. 24. Mild oropharyngeal dysphagia with low to moderate risk for aspiration due to minimal fatigue, minimal oral residue, missing teeth and multiple swallows. 25. History of hyperlipidemia. 1. Status post acute ventilator dependent hypercarbic hypoxic respiratory failure with carbon dioxide narcosis and respiratory acidosis. 2. Status post extubation. 3. Hypertension. 4. Mild normocytic anemia with granulocytosis. 5. Acute hypercarbic hypoxic ventilator-dependent respiratory failure, status post extubation with respiratory acidosis, hypercarbia and carbon dioxide narcosis. 6. Prerenal kidney injury. 7. Transaminitis. 8. Hypovitaminosis D. 9. Hypertensive cardiovascular disease with repolarization abnormalities. 10. Left ventricular ejection fraction of 68%. 11. Moderate concentric left ventricular hypertrophy with grade 1 abnormal relaxation pattern. 12. Moderately dilated left atrium. 13. Moderately sclerotic aortic valve. 14. Moderately thickened mitral valve with moderate mitral regurgitation. 15. Trace tricuspid regurgitation. 16. Carbon dioxide narcosis. 17. Acute exacerbation of severe chronic obstructive pulmonary disease. 18. History of hypothyroidism. 19. History of pulmonary hypertension. 20. High-grade fever of 101 degrees Fahrenheit. 21. Deconditioning. 22. Gait dysfunction. 23. History o hyperlipidemia. 24. History of constipation. 25. History of hypovitaminosis D. 1. Acute hypercarbic hypercapnic hypoxic ventilator-dependent respiratory failure with severe respiratory acidosis. 2. Resolving bronchospasm. 3. Fever of 100.8. 4. Mild normocytic anemia. 5. Granulocytosis. 6. Hypercarbia. 7. CO2 narcosis. 8. Transaminitis. 9. History of hypothyroidism. 10. Hypertensive cardiovascular disease with T-wave inversion I, aVL, V1 to V6. 11. Borderline hypokalemia. 1. Ventilator-dependent acute hypercarbic hypercapnic hypoxic respiratory failure with severe respiratory acidosis. 2. Bronchospasm. 3. Acute exacerbation of chronic obstructive pulmonary disease. 4. Normocytic anemia with granulocytosis. 5. Hypercarbia and hypercapnia. 6. Carbon dioxide narcosis. 7. Severe respiratory acidosis and hypoxemia. 8. Metabolic alkalosis. 9. Hyperglycemia. 10. Transaminitis. 11. Mild acute exacerbation of right-sided diastolic congestive heart failure with elevated BNP. 12. Indeterminate troponin. 13. Sinus tachycardia. 14. Left axis deviation. 15. Ventilator-dependent respiratory failure. 16. History of hypertension, hyperlipidemia, hypothyroidism, hypovitaminosis D. Plan at this time, patient has been ordered serial labs. Patient has been ordered repeat EKG. Pulmonary, Cardiology followup is required. 1. Aspirin 325 daily. 2. Atrovent 0.5 mg nebulizer every 2 hours p.r.n. and 0.5 mg nebulizer every 6 hours. 3. Doxycycline 100 mg p.o. every 12 hours. 4. Drisdol 50,000 units weekly. 5. Lipitor 10 mg daily. 6. Lovenox 40 mg subcu daily. 7. MiraLax 17 g daily. 8. Protonix 40 mg twice a day. 9. Pulmicort nebulizer 1 mg every 12 hours, which is increased. 10. Now, patient is on Solu-Medrol 30 mg IV every 6 hours. 11. Synthroid 50 mcg daily. 12. Tylenol p.r.n. 13. Xopenex nebulizer 0.63 mg four times a day and every 2 hours p.r.n. 14. Zithromax 500 mg IV daily. 15. Zofran 4 mg IV every 4 hours daily. The patient is on BiPAP, which has been ordered, 06/25, FiO2 of 40%, rate of 14. Patient is on dysphagia modified consistency diet. Patient has been ordered out of bed to chair. In view of the patient's recurrent multiple hospitalizations over the period of a year and so and due to patient's acute recurrent and iitkh-qn-sllyjxf hypoxic hypercarbic respiratory failure secondary to multiple chronic obstructive pulmonary disease exacerbation. Patient also recently was noted to have difficulty tolerating the BiPAP and patient is complaining of difficulty using the BiPAP secondary to breath stacking. There is a possibility to explore and to use alternative noninvasive ventilation therapeutic intervention to target volume control and reduce the hypercarbia and hypercapnia, which the patient has been experiencing on BiPAP. Without above trial of non-invasive ventilation, patient's pulmonary status may decompensate further and may cause life-threatening complication, which has been discussed and explained with the patient, patient's son and patient's daughter today at length. I have advised the patient's daughter specifically to contact [facility] and case management regarding provision and to provide home non-invasive ventilation options with continuation of above nebulizer treatment. At present, patient will be stabilized to the maximum regarding her pulmonary status before considering transfer out of the ICU and after patient is cleared by Pulmonary and Cardiology. Dictated and electronically signed, not read. Garett Rodríguez MD MTDBrandy
[2017-12-23] MEDS: Enoxaparin 40 mg Syringe SC SCH (09:07)
[2017-12-23] MEDS: POLYETHYLENE GLYCOL 3350 17 GM/Dose PACKET PO SCH (09:07)
[2017-12-23] MEDS ORDERED: MethylPREDNISolone 40 mg Vial IV SCH ×2 (10:30→18:00)
--- NOTE | 2017-12-23 10:33 | PN ---
DATE: 12/23/2017 CARDIOLOGY FOLLOWUP SUBJECTIVE: The patient is on BiPAP and breathing well. PHYSICAL EXAMINATION: VITAL SIGNS: Blood pressure is 157/100, heart rates in the 80s. NECK: Negative JVD. LUNGS: Decreased breath sounds. HEART: Reveals S1, S2. EXTREMITIES: Without edema. LABORATORY DATA: Hemoglobin 13.9. BUN and creatinine are normal. Glucose 133. IMPRESSION: 1. Exacerbation of chronic obstructive pulmonary disease. 2. Dyspnea, which is now resolved. 3. Hypertension. 4. Left ventricular hypertrophy. 5. Mitral regurgitation. PLAN: Given these findings, the patient's pulmonary status is much improved. We will add lisinopril for better blood pressure control. Marcelo Parry MD
--- NOTE | 2017-12-23 11:45 | CP.PCM.PN ---
Addendum entered and electronically signed by Nu Sandoval DO 12/23/17 17:31: Original assessment and plan were based from patients clinical status when evaluated this morning. Later in the morning, patient was having elevated BPs, 200s/100s. She was refusing PO medications. Hydralazine 10mg PO IVP x 1 dose given with improvement. Per nursing patient was increasingly lethargic and disorientated on Bipap in the afternoon. BPs were still high 200s/100s. STAT ABG ordered, CT head/chest and neurology consult placed. ABG showed findings suggestive of Respiratory acidosis, severe hypercapnia. Patient family was at the bedside. Discussed with the family the need for emergent intubation, family wishes to have patient intubated. Patient intubated successfully. Repeat ABG, repeat labs ordered. Increase steroids to Solumedrol 60mg IV q8hr. Will continue to monitor in the ICU. Original Note: <Nu Sandoval - Last Filed: 12/23/17 17:30> Subjective - Date & Time of Evaluation Date of Evaluation: 12/23/17 Time of Evaluation: 11:42 - Subjective Subjective: Medicine Progress Note - Dr Rodríguez: Patient seen and examined at bedside. Per nursing patient occasionally gets confused, anxious, tolerated bipap for a few hours overnight. This morning she is sitting up in bed. Speaking in complete sentences, breathing is improving. She is AAOx3. Offers no complaints at this time. Denies headaches, dizziness, cp , palpitations, abdominal pain, urinary symptoms. Objective - Vital Signs/Intake and Output Vital Signs (last 24 hours): Temp Pulse Resp BP Pulse Ox 98.6 F 83 46 H 163/103 H 100 12/23/17 04:00 12/23/17 10:25 12/23/17 05:05 12/23/17 10:19 12/23/17 05:05 Intake and Output: 12/23/17 12/23/17 06:59 18:59 Intake Total 250 Output Total 600 Balance -350 - Medications Medications: Current Medications Acetaminophen (Tylenol 650 Mg Supp) 650 mg RC Q6H PRN PRN Reason: TEMP>=99.5F Last Admin: 12/17/17 08:30 Dose: 650 mg Aspirin (Aspirin) 325 mg PO DAILY KRISTINE Last Admin: 12/23/17 09:07 Dose: 325 mg Atorvastatin Calcium (Lipitor) 10 mg PO DIN [facility] Last Admin: 12/22/17 17:42 Dose: 10 mg Budesonide (Pulmicort Respules) 1 mg IH [id number] [facility] Last Admin: 12/23/17 07:18 Dose: 0.5 mg Doxycycline Hyclate (Doryx) 100 mg PO Q12 [facility] Last Admin: 12/23/17 09:07 Dose: 100 mg Enoxaparin Sodium (Lovenox) 40 mg SC DAILY [facility] PRN Reason: Protocol Last Admin: 12/23/17 09:07 Dose: 40 mg Ergocalciferol (Drisdol 50,000 Intl Units Cap) 1 cap PO Q7D [facility] Last Admin: 12/20/17 10:07 Dose: 1 cap Hydralazine HCl (Apresoline) 10 mg IVP ONCE ONE Stop: 12/23/17 11:39 Ipratropium Cofield (Atrovent) 0.5 mg IH [id number] [facility] Last Admin: 12/23/17 07:18 Dose: 0.5 mg Ipratropium Cofield (Atrovent) 0.5 mg IH Q2H PRN PRN Reason: Shortness of Breath Levalbuterol HCl (Xopenex) 0.63 mg IH Q2 PRN PRN Reason: Shortness of Breath Levalbuterol HCl (Xopenex) 0.63 mg IH 0200,0800,1400,2000 [facility] Last Admin: 12/23/17 07:18 Dose: 0.63 mg Losartan Potassium (Cozaar) 50 mg PO DAILY [facility] Methylprednisolone (Solu-Medrol) 30 mg IV Q12H [facility] Ondansetron HCl (Zofran Inj) 4 mg IVP Q4H PRN PRN Reason: Nausea/Vomiting Pantoprazole Sodium (Protonix Ec Tab) 40 mg PO 0600,1600 [facility] Last Admin: 12/23/17 06:04 Dose: 40 mg Polyethylene Glycol (Miralax) 17 gm PO DAILY [facility] Last Admin: 12/23/17 09:07 Dose: 17 gm - Labs Labs: 12/23/17 06:00 12/23/17 06:00 PT 13.6 SECONDS (9.4-12.5) H 12/17/17 06:00 INR 1.18 (0.93-1.08) H 12/17/17 06:00 APTT 23.2 Seconds (25.1-36.5) L 12/17/17 06:00 - Constitutional Appears: Well, Non-toxic, No Acute Distress - Head Exam Head Exam: ATRAUMATIC, NORMAL INSPECTION, NORMOCEPHALIC - Eye Exam Eye Exam: EOMI, Normal appearance Pupil Exam: NORMAL ACCOMODATION - ENT Exam ENT Exam: Mucous Membranes Moist - Respiratory Exam Respiratory Exam: Decreased Breath Sounds, NORMAL BREATHING PATTERN - Cardiovascular Exam Cardiovascular Exam: REGULAR RHYTHM, +S1, +S2 - GI/Abdominal Exam GI & Abdominal Exam: Soft. absent: Guarding, Rigid, Tenderness, Rebound - Extremities Exam Extremities Exam: Normal Inspection - Neurological Exam Neurological Exam: Alert, Awake, Oriented x3 - Psychiatric Exam Psychiatric exam: Normal Affect, Normal Mood - Skin Skin Exam: Dry, Normal Color, Warm Assessment and Plan - Assessment and Plan (Free Text) Assessment: A/P: Patient is a 72 yo AA F with PMH of COPD (with prior intubations for exacerbations), asthma, HTN, and pulmonary HTN who presented to [facility] with worsening shortness of breath, found to be in hypercarbic respiratory failure, failing Bipap in ED, then intubated and placed on mechanical ventilation. She is s/p extubation. Plan: Acute exacerbation of COPD with acute hypoxic respiratory failure with hypercapnia -Stable, afebrile -S/P extubation -Plan to Downgrade to telemetry today -Decreased Solumedrol 30mg IV Q12H -Xopenex and Ipratroprium Q6H KRISTINE, Q2H PRN SOB -Budesanide 1mg Q12H KRISTINE -Antibiotics: Doxycycline 100mg Q12 -Monitor daily ABGs -Bipap HS, PRN SOB -Activity: OOB to chair Altered Mental Status -Patient with intermittent periods of confusion, currently she is AAOx3 -Patient without focal/neurological deficits -Consider corticosteroid induced jen -Decrease steroids to 30mg Q12H Elevated Blood Pressures -Patient started on Cozaar 50mg PO daily -Hydralazine 10mg IVP x 1 dose ordered Relapsing recurrent hypercarbia and respiratory acidosis -ABG reviewed this morning -Continue to Monitor daily ABGs -Pulmonary on consult, help appreciated Diastolic CHF, Moderate Mitral Regurgitation -Echo showed normal LVEF with Moderate Mitral Regurgitation -Cardiology consulted, help appreciated -Continue ASA and Lipitor Transaminitis -LFTs trending down -Will continue to monitor Hyperkalemia -S/P Kayexyalate -Continue to monitor Hypothyroidism -Continue Synthroid 50mcg daily Vitamin D Deficiency -Continue Ergocalciferol 1 tab PO Q7D Plan discussed with Dr Marcos Sandoval DO PGY-1 <Garett Rodríguez U - Last Filed: 12/29/17 17:37> Objective - Vital Signs/Intake and Output Vital Signs (last 24 hours): Temp Pulse Resp BP Pulse Ox 98.2 F 87 24 103/60 97 12/29/17 04:00 12/29/17 16:00 12/28/17 07:20 12/29/17 16:00 12/29/17 16:00 Intake and Output: 12/29/17 12/29/17 06:59 18:59 Intake Total 995 Output Total 350 Balance 645 - Medications Medications: Current Medications Acetaminophen (Tylenol 650 Mg Supp) 650 mg RC Q6H PRN PRN Reason: TEMP>=99.5F Last Admin: 12/17/17 08:30 Dose: 650 mg Amiodarone HCl (Cordarone) 200 mg PO Q12 [facility] Last Admin: 12/29/17 09:35 Dose: 200 mg Aspirin (Aspirin) 325 mg PO DAILY [facility] Last Admin: 12/29/17 09:37 Dose: 325 mg Atorvastatin Calcium (Lipitor) 10 mg PO DIN [facility] Last Admin: 12/28/17 17:23 Dose: 10 mg Budesonide (Pulmicort Respules) 1 mg IH [id number] [facility] Last Admin: 12/29/17 07:40 Dose: 1 mg Doxycycline Hyclate (Doryx) 100 mg PO Q12 [facility] Last Admin: 12/29/17 09:36 Dose: 100 mg Enoxaparin Sodium (Lovenox) 40 mg SC DAILY [facility] PRN Reason: Protocol Last Admin: 12/29/17 09:34 Dose: 40 mg Ergocalciferol (Drisdol 50,000 Intl Units Cap) 1 cap PO Q7D [facility] Last Admin: 12/27/17 10:03 Dose: Not Given Hydralazine HCl (Apresoline) 10 mg IVP Q6 PRN PRN Reason: Systolic Blood Pressure Last Admin: 12/23/17 14:30 Dose: 10 mg Hydrocortisone Sodium Succinate (Solu-Cortef) 25 mg IVP DAILY [facility] Last Admin: 12/29/17 09:34 Dose: 25 mg Propofol (Diprivan) 1,000 mg in 100 mls @ 2.252 mls/hr IV .Q24H PRN; Protocol; 5 MCG/KG/MIN PRN Reason: TITRATE PER MD ORDER Last Admin: 12/28/17 03:19 Dose: 22.2 mcg/kg/min, 10 mls/hr Potassium Phosphate 15 mmole/ (Dextrose) 255 mls @ 42.5 mls/hr IVPB Q6H [facility] Stop: 12/29/17 19:59 Last Admin: 12/29/17 16:14 Dose: 42.5 mls/hr Ipratropium Cofield (Atrovent) 0.5 mg IH [id number] [facility] Last Admin: 12/29/17 14:02 Dose: 0.5 mg Ipratropium Cofield (Atrovent) 0.5 mg IH Q2H PRN PRN Reason: Shortness of Breath Levalbuterol HCl (Xopenex) 0.63 mg IH Q2 PRN PRN Reason: Shortness of Breath Levalbuterol HCl (Xopenex) 0.63 mg IH 0200,0800,1400,2000 [facility] Last Admin: 12/29/17 14:07 Dose: 0.63 mg Ondansetron HCl (Zofran Inj) 4 mg IVP Q4H PRN PRN Reason: Nausea/Vomiting Pantoprazole Sodium (Protonix Inj) 40 mg IVP Q12 [facility] Last Admin: 12/29/17 09:34 Dose: 40 mg Polyethylene Glycol (Miralax) 17 gm PO DAILY [facility] Last Admin: 12/29/17 09:37 Dose: 17 gm - Labs Labs: 12/29/17 06:25 12/29/17 06:25 PT 12.2 SECONDS (9.4-12.5) 12/29/17 06:25 INR 1.06 (0.93-1.08) 12/29/17 06:25 APTT 27.8 Seconds (25.1-36.5) 12/29/17 06:25 Attending/Attestation - Attestation I have personally seen and examined this patient.: Yes I have fully participated in the care of the patient.: Yes I have reviewed all pertinent clinical information, including history, physical exam and plan: Yes Notes (Text): Please see/read my dictated notes.
--- NOTE | 2017-12-23 13:26 | CP.CCUPN ---
<Venancio Olivera - Last Filed: 12/23/17 13:19> CCU Subjective - Physician Review Events Since Last Encounter (Free Text): 12/23/17 09:30A Patient seen and examined at bedside. Per nurse, patient seems to be mildly confused. Patient herself states that she is doing better and that her breathing is better. CCU Objective - Vital Signs / Intake & Output Vital Signs (Last 4 hours): Vital Signs Pulse BP 12/23/17 11:50 93 H 201/103 H 12/23/17 11:15 91 H 204/112 H 12/23/17 10:25 83 12/23/17 10:19 91 H 163/103 H Intake and Output (Last 8hrs): Intake & Output 12/22/17 12/23/17 12/23/17 22:59 06:59 14:59 Intake Total 970 250 Output Total 600 600 Balance 370 -350 Intake: IV 250 Left Antecubital 250 Oral 720 250 Output: Urine 600 600 Urine, Voided 600 600 Other: # Bowel Movements 0 - Physical Exam Head: Positive for: Atraumatic, Normocephalic Pupils: Positive for: PERRL. Negative for: Non-Reactive, Pinpoint Extroacular Muscles: Positive for: EOMI. Negative for: Gaze Palsy, Entrapment Conjunctiva: Positive for: Normal. Negative for: Injected, Icteric Mouth: Positive for: Moist Mucous Membranes, Normal Lips, Normal Tounge. Negative for: Drooling Nose (External): Positive for: Atraumatic. Negative for: Abrasion, Laceration Nose (Internal): Positive for: Normal Inspection, No Active Bleeding. Negative for: Epistaxis Neck: Positive for: Normal Range of Motion. Negative for: Meningeal Signs, MIDLINE TENDERNESS, Paraspinal Tenderness, JVD Respiratory/Chest: Positive for: Clear to Auscultation, Good Air Exchange, Decreased Breath Sounds (mildly decreased breath sounds all bauer, again improved over prior exams). Negative for: Respiratory Distress, Accessory Muscle Use, Wheezes (no further wheezing appreciated on exam today), Rales, Rhonchi Cardiovascular: Positive for: Regular Rate and Rhythm, Normal S1, S2. Negative for: Murmurs, Irregular Rhythm, Tachycardic, Bradycardic Abdomen: Negative for: Tenderness, Distention, Peritoneal Signs Back: Positive for: Normal Inspection. Negative for: CVA Tenderness, Midline Tenderness, Paraspinal Tenderness Upper Extremity: Positive for: Normal Inspection, Normal ROM, NORMAL PULSES. Negative for: Cyanosis, Edema, Tenderness, Swelling, Erythema, Deformity Lower Extremity: Positive for: Normal Inspection, NORMAL PULSES, Normal ROM. Negative for: Edema, CALF TENDERNESS, Cyanosis, Tenderness, Swelling, Erythema, Deformity Neurological: Positive for: GCS=15, Speech Normal, Motor Func Grossly Intact, Normal Sensory Function, Other (following all commands appropriately, no appreciable lethargy/somnolence) Skin: Positive for: Warm, Dry, Normal Color. Negative for: Rashes Psychiatric: Positive for: Alert, Oriented x 3 (x4 (self, location, year, president)), Normal Insight, Normal Concentration, Normal Affect, Normal Mood - Medications Active Medications: Active Medications Generic Name Dose Route Start Last Admin Trade Name Freq PRN Reason Stop Dose Admin Acetaminophen 650 mg 12/16/17 19:09 12/17/17 08:30 Tylenol 650 Mg Supp RC 650 mg Q6H PRN Administration TEMP>=99.5F Aspirin 325 mg 12/20/17 10:00 12/23/17 09:07 Aspirin PO 325 mg DAILY SHARI Administration Atorvastatin Calcium 10 mg 12/19/17 17:00 12/22/17 17:42 Lipitor PO 10 mg DIN SHARI Administration Budesonide 1 mg 12/22/17 20:00 12/23/17 07:18 Pulmicort Respules IH 0.5 mg [id number] SHARI Administration Doxycycline Hyclate 100 mg 12/19/17 22:00 12/23/17 09:07 Doryx PO 100 mg Q12 SHARI Administration Enoxaparin Sodium 40 mg 12/17/17 10:00 12/23/17 09:07 Lovenox SC 40 mg DAILY SHARI Administration Protocol Ergocalciferol 1 cap 12/20/17 10:00 12/20/17 10:07 Drisdol 50,000 Intl Units Cap PO 1 cap Q7D SHARI Administration Ipratropium [place] 0.5 mg 12/22/17 14:00 12/23/17 13:17 Atrovent IH 0.5 mg [id number] SHARI Administration Ipratropium [place] 0.5 mg 12/22/17 12:21 Atrovent IH Q2H PRN Shortness of Breath Levalbuterol HCl 0.63 mg 12/16/17 15:37 Xopenex IH Q2 PRN Shortness of Breath Levalbuterol HCl 0.63 mg 12/22/17 08:00 12/23/17 13:17 Xopenex IH 0.63 mg 0200,0800,1400,2000 SHARI Administration Losartan Potassium 50 mg 12/23/17 11:15 12/23/17 11:15 Cozaar PO Not Given DAILY SHARI Methylprednisolone 30 mg 12/23/17 18:00 Solu-Medrol IV Q12H SHARI Ondansetron HCl 4 mg 12/16/17 19:09 Zofran Inj IVP Q4H PRN Nausea/Vomiting Pantoprazole Sodium 40 mg 12/19/17 16:00 12/23/17 06:04 Protonix Ec Tab PO 40 mg 0600,1600 SHARI Administration Polyethylene Glycol 17 gm 12/19/17 10:30 12/23/17 09:07 Miralax PO 17 gm DAILY SHARI Administration - Patient Studies Lab Studies: Lab Studies 12/23/17 12/23/17 12/23/17 Range/Units 11:24 06:00 06:00 WBC 5.1 D (4.5-11.0) 10^3/ul RBC 4.64 (3.5-6.1) 10^6/uL Hgb 13.9 (12.0-16.0) g/dL Hct 44.6 (36.0-48.0) % MCV 96.1 (80.0-105.0) fl MCH 30.0 (25.0-35.0) pg MCHC 31.2 (31.0-37.0) g/dl RDW 14.0 (11.5-14.5) % Plt Count 236 (120.0-450.0) 10^3/uL MPV 11.4 H (7.0-11.0) fl Gran % 83.5 H (50.0-68.0) % Lymph % (Auto) 12.7 L (22.0-35.0) % Collin % (Auto) 3.8 (1.0-6.0) % Eos % (Auto) 0.0 L (1.5-5.0) % Baso % (Auto) 0.0 (0.0-3.0) % Gran # 4.22 (1.4-6.5) Lymph # (Auto) 0.6 L (1.2-3.4) Collin # (Auto) 0.2 (0.1-0.6) Eos # (Auto) 0.0 (0.0-0.7) Baso # (Auto) 0.00 (0.0-2.0) K/mm3 pCO2 (35-45) mm/Hg pO2 (80-100) mm/Hg HCO3 (21-28) mmol/L ABG pH (7.35-7.45) ABG Total CO2 (22-28) mmol.L ABG O2 Saturation (95-98) % ABG O2 Content (15-23) ML/dl ABG Base Excess (-2.0-3.0) mmol/L ABG Hemoglobin (11.7-17.4) g/dL ABG Carboxyhemoglobin (0.5-1.5) % POC ABG HHb (Measured) (0-5) % ABG Methemoglobin (0.0-3.0) % ABG O2 Capacity (16-24) mL/dl Hgb O2 Saturation (95.0-98.0) % FiO2 % Sodium 143 (132-148) mmol/L Potassium 4.2 (3.6-5.0) mmol/L Chloride 89 L (98-107) mmol/L Carbon Dioxide 46 H (21-33) mmol/L Anion Gap 12 (10-20) BUN 18 (7-21) mg/dL Creatinine 0.4 L (0.7-1.2) mg/dl Est GFR ( Amer) > 60 Est GFR (Non-Af Amer) > 60 POC Glucose (mg/dL) 127 H (65-110) mg/dL Random Glucose 133 H (70-110) mg/dL Calcium 9.2 (8.4-10.5) mg/dL Magnesium 2.3 H (1.7-2.2) mg/dL Total Bilirubin 0.4 (0.2-1.3) mg/dL Direct Bilirubin 0.1 (0.0-0.4) mg/dL AST 39 H D (14-36) U/L ALT 114 H (7-56) U/L Alkaline Phosphatase 75 (38-126) U/L Total Protein 7.9 (5.8-8.3) g/dL Albumin 4.4 (3.0-4.8) g/dL Globulin 3.5 gm/dL Albumin/Globulin Ratio 1.3 (1.1-1.8) 12/23/17 12/23/17 12/22/17 Range/Units 05:47 05:00 23:36 WBC (4.5-11.0) 10^3/ul RBC (3.5-6.1) 10^6/uL Hgb (12.0-16.0) g/dL Hct (36.0-48.0) % MCV (80.0-105.0) fl MCH (25.0-35.0) pg MCHC (31.0-37.0) g/dl RDW (11.5-14.5) % Plt Count (120.0-450.0) 10^3/uL MPV (7.0-11.0) fl Gran % (50.0-68.0) % Lymph % (Auto) (22.0-35.0) % Collin % (Auto) (1.0-6.0) % Eos % (Auto) (1.5-5.0) % Baso % (Auto) (0.0-3.0) % Gran # (1.4-6.5) Lymph # (Auto) (1.2-3.4) Collin # (Auto) (0.1-0.6) Eos # (Auto) (0.0-0.7) Baso # (Auto) (0.0-2.0) K/mm3 pCO2 80 H* (35-45) mm/Hg pO2 51.0 L (80-100) mm/Hg HCO3 49.6 H* (21-28) mmol/L ABG pH 7.40 (7.35-7.45) ABG Total CO2 52.1 H (22-28) mmol.L ABG O2 Saturation 93.3 L (95-98) % ABG O2 Content 16.8 (15-23) ML/dl ABG Base Excess 20.2 H (-2.0-3.0) mmol/L ABG Hemoglobin 13.3 (11.7-17.4) g/dL ABG Carboxyhemoglobin 3.0 H (0.5-1.5) % POC ABG HHb (Measured) 6.5 H (0-5) % ABG Methemoglobin 0.7 (0.0-3.0) % ABG O2 Capacity 18.0 (16-24) mL/dl Hgb O2 Saturation 89.8 L (95.0-98.0) % FiO2 21.0 % Sodium (132-148) mmol/L Potassium (3.6-5.0) mmol/L Chloride (98-107) mmol/L Carbon Dioxide (21-33) mmol/L Anion Gap (10-20) BUN (7-21) mg/dL Creatinine (0.7-1.2) mg/dl Est GFR ( Amer) Est GFR (Non-Af Amer) POC Glucose (mg/dL) 130 H 129 H (65-110) mg/dL Random Glucose (70-110) mg/dL Calcium (8.4-10.5) mg/dL Magnesium (1.7-2.2) mg/dL Total Bilirubin (0.2-1.3) mg/dL Direct Bilirubin (0.0-0.4) mg/dL AST (14-36) U/L ALT (7-56) U/L Alkaline Phosphatase (38-126) U/L Total Protein (5.8-8.3) g/dL Albumin (3.0-4.8) g/dL Globulin gm/dL Albumin/Globulin Ratio (1.1-1.8) 12/22/17 12/22/17 Range/Units 15:42 11:21 WBC (4.5-11.0) 10^3/ul RBC (3.5-6.1) 10^6/uL Hgb (12.0-16.0) g/dL Hct (36.0-48.0) % MCV (80.0-105.0) fl MCH (25.0-35.0) pg MCHC (31.0-37.0) g/dl RDW (11.5-14.5) % Plt Count (120.0-450.0) 10^3/uL MPV (7.0-11.0) fl Gran % (50.0-68.0) % Lymph % (Auto) (22.0-35.0) % Collin % (Auto) (1.0-6.0) % Eos % (Auto) (1.5-5.0) % Baso % (Auto) (0.0-3.0) % Gran # (1.4-6.5) Lymph # (Auto) (1.2-3.4) Collin # (Auto) (0.1-0.6) Eos # (Auto) (0.0-0.7) Baso # (Auto) (0.0-2.0) K/mm3 pCO2 (35-45) mm/Hg pO2 (80-100) mm/Hg HCO3 (21-28) mmol/L ABG pH (7.35-7.45) ABG Total CO2 (22-28) mmol.L ABG O2 Saturation (95-98) % ABG O2 Content (15-23) ML/dl ABG Base Excess (-2.0-3.0) mmol/L ABG Hemoglobin (11.7-17.4) g/dL ABG Carboxyhemoglobin (0.5-1.5) % POC ABG HHb (Measured) (0-5) % ABG Methemoglobin (0.0-3.0) % ABG O2 Capacity (16-24) mL/dl Hgb O2 Saturation (95.0-98.0) % FiO2 % Sodium (132-148) mmol/L Potassium (3.6-5.0) mmol/L Chloride (98-107) mmol/L Carbon Dioxide (21-33) mmol/L Anion Gap (10-20) BUN (7-21) mg/dL Creatinine (0.7-1.2) mg/dl Est GFR ( Amer) Est GFR (Non-Af Amer) POC Glucose (mg/dL) 140 H 138 H (65-110) mg/dL Random Glucose (70-110) mg/dL Calcium (8.4-10.5) mg/dL Magnesium (1.7-2.2) mg/dL Total Bilirubin (0.2-1.3) mg/dL Direct Bilirubin (0.0-0.4) mg/dL AST (14-36) U/L ALT (7-56) U/L Alkaline Phosphatase (38-126) U/L Total Protein (5.8-8.3) g/dL Albumin (3.0-4.8) g/dL Globulin gm/dL Albumin/Globulin Ratio (1.1-1.8) Laboratory Results - last 24 hr 12/22/17 12/22/17 12/22/17 11:21 15:42 23:36 WBC RBC Hgb Hct MCV MCH MCHC RDW Plt Count MPV Gran % Lymph % (Auto) Collin % (Auto) Eos % (Auto) Baso % (Auto) Gran # Lymph # (Auto) Collin # (Auto) Eos # (Auto) Baso # (Auto) pCO2 pO2 HCO3 ABG pH ABG Total CO2 ABG O2 Saturation ABG O2 Content ABG Base Excess ABG Hemoglobin ABG Carboxyhemoglobin POC ABG HHb (Measured) ABG Methemoglobin ABG O2 Capacity Hgb O2 Saturation FiO2 Sodium Potassium Chloride Carbon Dioxide Anion Gap BUN Creatinine Est GFR ( Amer) Est GFR (Non-Af Amer) POC Glucose (mg/dL) 138 H 140 H 129 H Random Glucose Calcium Magnesium Total Bilirubin Direct Bilirubin AST ALT Alkaline Phosphatase Total Protein Albumin Globulin Albumin/Globulin Ratio 12/23/17 12/23/17 12/23/17 05:00 05:47 06:00 WBC RBC Hgb Hct MCV MCH MCHC RDW Plt Count MPV Gran % Lymph % (Auto) Collin % (Auto) Eos % (Auto) Baso % (Auto) Gran # Lymph # (Auto) Collin # (Auto) Eos # (Auto) Baso # (Auto) pCO2 80 H* pO2 51.0 L HCO3 49.6 H* ABG pH 7.40 ABG Total CO2 52.1 H ABG O2 Saturation 93.3 L ABG O2 Content 16.8 ABG Base Excess 20.2 H ABG Hemoglobin 13.3 ABG Carboxyhemoglobin 3.0 H POC ABG HHb (Measured) 6.5 H ABG Methemoglobin 0.7 ABG O2 Capacity 18.0 Hgb O2 Saturation 89.8 L FiO2 21.0 Sodium 143 Potassium 4.2 Chloride 89 L Carbon Dioxide 46 H Anion Gap 12 BUN 18 Creatinine 0.4 L Est GFR ( Amer) > 60 Est GFR (Non-Af Amer) > 60 POC Glucose (mg/dL) 130 H Random Glucose 133 H Calcium 9.2 Magnesium 2.3 H Total Bilirubin 0.4 Direct Bilirubin 0.1 AST 39 H D ALT 114 H Alkaline Phosphatase 75 Total Protein 7.9 Albumin 4.4 Globulin 3.5 Albumin/Globulin Ratio 1.3 12/23/17 12/23/17 06:00 11:24 WBC 5.1 D RBC 4.64 Hgb 13.9 Hct 44.6 MCV 96.1 MCH 30.0 MCHC 31.2 RDW 14.0 Plt Count 236 MPV 11.4 H Gran % 83.5 H Lymph % (Auto) 12.7 L Collin % (Auto) 3.8 Eos % (Auto) 0.0 L Baso % (Auto) 0.0 Gran # 4.22 Lymph # (Auto) 0.6 L Collin # (Auto) 0.2 Eos # (Auto) 0.0 Baso # (Auto) 0.00 pCO2 pO2 HCO3 ABG pH ABG Total CO2 ABG O2 Saturation ABG O2 Content ABG Base Excess ABG Hemoglobin ABG Carboxyhemoglobin POC ABG HHb (Measured) ABG Methemoglobin ABG O2 Capacity Hgb O2 Saturation FiO2 Sodium Potassium Chloride Carbon Dioxide Anion Gap BUN Creatinine Est GFR ( Amer) Est GFR (Non-Af Amer) POC Glucose (mg/dL) 127 H Random Glucose Calcium Magnesium Total Bilirubin Direct Bilirubin AST ALT Alkaline Phosphatase Total Protein Albumin Globulin Albumin/Globulin Ratio Fingerstick Blood Sugar Results: 140 Critical Care Progress Note - Nutrition Nutrition: Nutrition Category Date Time Status Dysphagia/Modified Consistency Diet [DIET] Diets 12/18/17 Breakfast Ordered Assessment/Plan - Assessment and Plan (Free Text) Assessment: 72 yo AA F with pertinent PMH of COPD (with prior intubations for exacerbations) , asthma, and pulmonary HTN who [place] [facility] [place]ness [place] breath, found to be in hypercarbic respiratory failure, failing Bipap in ED, then intubated and placed on mechanical ventilation. Patient was extubated on . Initial ABG showed patient to be in severe respiratory acidosis with retention of CO2; patient was also altered as a result of Hypoxemic Hypercapneic Respiratory failure. Today, patient's pH has normalized at 7.40, and CO2 is lower than yesterday at 80. At this time, more likely a picture of COPD exacerbation with overlying CHF exacerbation, as patient's BNP was elevated at >5000 and blood cultures and procal negative. Other chronic medical prolems: HTN Plan: Neuro: - AA&O X 3, but mildly confused, likely 2/2 steroid use: reduce steroids - Maintain normothermia Cardio: - Maintain regular rate and rhythm - Lovenox for DVT ppx; Daily ASA Pulm: - Hypoxic Hypercapneic Respiratory Failure Likely 2/2 Mixed COPD and CHF Exacerbation: - Covered empirically for PNA with Doxy as per PMD; Azithro discontinued - Solumedrol, Xopenex, Atrovent, Budesonide - Pulm consult: Dr. Smart GI: - Protonix for GI ppx - Miralax Shari; Zofran PRN Renal: - Monitor and replete electrolytes as needed Heme: - Lovenox for DVT ppx ID: - Empirically covered for possible PNA with Doxy added as per PMD Dispo: Patient is stable for transfer to telemetry <Sheldon Modi - Last Filed: 12/23/17 15:03> CCU Objective - Vital Signs / Intake & Output Vital Signs (Last 4 hours): Vital Signs Pulse BP 12/23/17 13:24 91 H 12/23/17 11:50 93 H 201/103 H 12/23/17 11:15 91 H 204/112 H Intake and Output (Last 8hrs): Intake & Output 12/23/17 12/23/17 12/23/17 06:59 14:59 22:59 Intake Total 250 Output Total 600 Balance -350 Intake: Oral 250 Output: Urine 600 Urine, Voided 600 - Medications Active Medications: Active Medications Generic Name Dose Route Start Last Admin Trade Name Freq PRN Reason Stop Dose Admin Acetaminophen 650 mg 12/16/17 19:09 12/17/17 08:30 Tylenol 650 Mg Supp RC 650 mg Q6H PRN Administration TEMP>=99.5F Aspirin 325 mg 12/20/17 10:00 12/23/17 09:07 Aspirin PO 325 mg DAILY SHARI Administration Atorvastatin Calcium 10 mg 12/19/17 17:00 12/22/17 17:42 Lipitor PO 10 mg DIN SHARI Administration Budesonide 1 mg 12/22/17 20:00 12/23/17 07:18 Pulmicort Respules IH 0.5 mg [id number] SHARI Administration Doxycycline Hyclate 100 mg 12/19/17 22:00 12/23/17 09:07 Doryx PO 100 mg Q12 SHARI Administration Enoxaparin Sodium 40 mg 12/17/17 10:00 12/23/17 09:07 Lovenox SC 40 mg DAILY SHARI Administration Protocol Ergocalciferol 1 cap 12/20/17 10:00 12/20/17 10:07 Drisdol 50,000 Intl Units Cap PO 1 cap Q7D SHARI Administration Hydralazine HCl 10 mg 12/23/17 14:29 Apresoline IVP Q6 PRN Systolic Blood Pressure Ipratropium [place] 0.5 mg 12/22/17 14:00 12/23/17 13:17 Atrovent IH 0.5 mg [id number] SHARI Administration Ipratropium [place] 0.5 mg 12/22/17 12:21 Atrovent IH Q2H PRN Shortness of Breath Levalbuterol HCl 0.63 mg 12/16/17 15:37 Xopenex IH Q2 PRN Shortness of Breath Levalbuterol HCl 0.63 mg 12/22/17 08:00 12/23/17 13:17 Xopenex IH 0.63 mg 0200,0800,1400,2000 SHARI Administration Losartan Potassium 50 mg 12/23/17 11:15 12/23/17 11:15 Cozaar PO Not Given DAILY SHARI Methylprednisolone 30 mg 12/23/17 18:00 Solu-Medrol IV Q12H SHARI Ondansetron HCl 4 mg 12/16/17 19:09 Zofran Inj IVP Q4H PRN Nausea/Vomiting Pantoprazole Sodium 40 mg 12/19/17 16:00 12/23/17 06:04 Protonix Ec Tab PO 40 mg 0600,1600 SHARI Administration Polyethylene Glycol 17 gm 12/19/17 10:30 12/23/17 09:07 Miralax PO 17 gm DAILY SHARI Administration - Patient Studies Lab Studies: Lab Studies 12/23/17 12/23/17 12/23/17 Range/Units 11:24 06:00 06:00 WBC 5.1 D (4.5-11.0) 10^3/ul RBC 4.64 (3.5-6.1) 10^6/uL Hgb 13.9 (12.0-16.0) g/dL Hct 44.6 (36.0-48.0) % MCV 96.1 (80.0-105.0) fl MCH 30.0 (25.0-35.0) pg MCHC 31.2 (31.0-37.0) g/dl RDW 14.0 (11.5-14.5) % Plt Count 236 (120.0-450.0) 10^3/uL MPV 11.4 H (7.0-11.0) fl Gran % 83.5 H (50.0-68.0) % Lymph % (Auto) 12.7 L (22.0-35.0) % Collin % (Auto) 3.8 (1.0-6.0) % Eos % (Auto) 0.0 L (1.5-5.0) % Baso % (Auto) 0.0 (0.0-3.0) % Gran # 4.22 (1.4-6.5) Lymph # (Auto) 0.6 L (1.2-3.4) Collin # (Auto) 0.2 (0.1-0.6) Eos # (Auto) 0.0 (0.0-0.7) Baso # (Auto) 0.00 (0.0-2.0) K/mm3 pCO2 (35-45) mm/Hg pO2 (80-100) mm/Hg HCO3 (21-28) mmol/L ABG pH (7.35-7.45) ABG Total CO2 (22-28) mmol.L ABG O2 Saturation (95-98) % ABG O2 Content (15-23) ML/dl ABG Base Excess (-2.0-3.0) mmol/L ABG Hemoglobin (11.7-17.4) g/dL ABG Carboxyhemoglobin (0.5-1.5) % POC ABG HHb (Measured) (0-5) % ABG Methemoglobin (0.0-3.0) % ABG O2 Capacity (16-24) mL/dl Hgb O2 Saturation (95.0-98.0) % FiO2 % Sodium 143 (132-148) mmol/L Potassium 4.2 (3.6-5.0) mmol/L Chloride 89 L (98-107) mmol/L Carbon Dioxide 46 H (21-33) mmol/L Anion Gap 12 (10-20) BUN 18 (7-21) mg/dL Creatinine 0.4 L (0.7-1.2) mg/dl Est GFR ( Amer) > 60 Est GFR (Non-Af Amer) > 60 POC Glucose (mg/dL) 127 H (65-110) mg/dL Random Glucose 133 H (70-110) mg/dL Calcium 9.2 (8.4-10.5) mg/dL Magnesium 2.3 H (1.7-2.2) mg/dL Total Bilirubin 0.4 (0.2-1.3) mg/dL Direct Bilirubin 0.1 (0.0-0.4) mg/dL AST 39 H D (14-36) U/L ALT 114 H (7-56) U/L Alkaline Phosphatase 75 (38-126) U/L Total Protein 7.9 (5.8-8.3) g/dL Albumin 4.4 (3.0-4.8) g/dL Globulin 3.5 gm/dL Albumin/Globulin Ratio 1.3 (1.1-1.8) 12/23/17 12/23/17 12/22/17 Range/Units 05:47 05:00 23:36 WBC (4.5-11.0) 10^3/ul RBC (3.5-6.1) 10^6/uL Hgb (12.0-16.0) g/dL Hct (36.0-48.0) % MCV (80.0-105.0) fl MCH (25.0-35.0) pg MCHC (31.0-37.0) g/dl RDW (11.5-14.5) % Plt Count (120.0-450.0) 10^3/uL MPV (7.0-11.0) fl Gran % (50.0-68.0) % Lymph % (Auto) (22.0-35.0) % Collin % (Auto) (1.0-6.0) % Eos % (Auto) (1.5-5.0) % Baso % (Auto) (0.0-3.0) % Gran # (1.4-6.5) Lymph # (Auto) (1.2-3.4) Collin # (Auto) (0.1-0.6) Eos # (Auto) (0.0-0.7) Baso # (Auto) (0.0-2.0) K/mm3 pCO2 80 H* (35-45) mm/Hg pO2 51.0 L (80-100) mm/Hg HCO3 49.6 H* (21-28) mmol/L ABG pH 7.40 (7.35-7.45) ABG Total CO2 52.1 H (22-28) mmol.L ABG O2 Saturation 93.3 L (95-98) % ABG O2 Content 16.8 (15-23) ML/dl ABG Base Excess 20.2 H (-2.0-3.0) mmol/L ABG Hemoglobin 13.3 (11.7-17.4) g/dL ABG Carboxyhemoglobin 3.0 H (0.5-1.5) % POC ABG HHb (Measured) 6.5 H (0-5) % ABG Methemoglobin 0.7 (0.0-3.0) % ABG O2 Capacity 18.0 (16-24) mL/dl Hgb O2 Saturation 89.8 L (95.0-98.0) % FiO2 21.0 % Sodium (132-148) mmol/L Potassium (3.6-5.0) mmol/L Chloride (98-107) mmol/L Carbon Dioxide (21-33) mmol/L Anion Gap (10-20) BUN (7-21) mg/dL Creatinine (0.7-1.2) mg/dl Est GFR ( Amer) Est GFR (Non-Af Amer) POC Glucose (mg/dL) 130 H 129 H (65-110) mg/dL Random Glucose (70-110) mg/dL Calcium (8.4-10.5) mg/dL Magnesium (1.7-2.2) mg/dL Total Bilirubin (0.2-1.3) mg/dL Direct Bilirubin (0.0-0.4) mg/dL AST (14-36) U/L ALT (7-56) U/L Alkaline Phosphatase (38-126) U/L Total Protein (5.8-8.3) g/dL Albumin (3.0-4.8) g/dL Globulin gm/dL Albumin/Globulin Ratio (1.1-1.8) 12/22/17 12/22/17 Range/Units 15:42 11:21 WBC (4.5-11.0) 10^3/ul RBC (3.5-6.1) 10^6/uL Hgb (12.0-16.0) g/dL Hct (36.0-48.0) % MCV (80.0-105.0) fl MCH (25.0-35.0) pg MCHC (31.0-37.0) g/dl RDW (11.5-14.5) % Plt Count (120.0-450.0) 10^3/uL MPV (7.0-11.0) fl Gran % (50.0-68.0) % Lymph % (Auto) (22.0-35.0) % Collin % (Auto) (1.0-6.0) % Eos % (Auto) (1.5-5.0) % Baso % (Auto) (0.0-3.0) % Gran # (1.4-6.5) Lymph # (Auto) (1.2-3.4) Collin # (Auto) (0.1-0.6) Eos # (Auto) (0.0-0.7) Baso # (Auto) (0.0-2.0) K/mm3 pCO2 (35-45) mm/Hg pO2 (80-100) mm/Hg HCO3 (21-28) mmol/L ABG pH (7.35-7.45) ABG Total CO2 (22-28) mmol.L ABG O2 Saturation (95-98) % ABG O2 Content (15-23) ML/dl ABG Base Excess (-2.0-3.0) mmol/L ABG Hemoglobin (11.7-17.4) g/dL ABG Carboxyhemoglobin (0.5-1.5) % POC ABG HHb (Measured) (0-5) % ABG Methemoglobin (0.0-3.0) % ABG O2 Capacity (16-24) mL/dl Hgb O2 Saturation (95.0-98.0) % FiO2 % Sodium (132-148) mmol/L Potassium (3.6-5.0) mmol/L Chloride (98-107) mmol/L Carbon Dioxide (21-33) mmol/L Anion Gap (10-20) BUN (7-21) mg/dL Creatinine (0.7-1.2) mg/dl Est GFR ( Amer) Est GFR (Non-Af Amer) POC Glucose (mg/dL) 140 H 138 H (65-110) mg/dL Random Glucose (70-110) mg/dL Calcium (8.4-10.5) mg/dL Magnesium (1.7-2.2) mg/dL Total Bilirubin (0.2-1.3) mg/dL Direct Bilirubin (0.0-0.4) mg/dL AST (14-36) U/L ALT (7-56) U/L Alkaline Phosphatase (38-126) U/L Total Protein (5.8-8.3) g/dL Albumin (3.0-4.8) g/dL Globulin gm/dL Albumin/Globulin Ratio (1.1-1.8) Laboratory Results - last 24 hr 12/22/17 12/22/17 12/22/17 11:21 15:42 23:36 WBC RBC Hgb Hct MCV MCH MCHC RDW Plt Count MPV Gran % Lymph % (Auto) Collin % (Auto) Eos % (Auto) Baso % (Auto) Gran # Lymph # (Auto) Collin # (Auto) Eos # (Auto) Baso # (Auto) pCO2 pO2 HCO3 ABG pH ABG Total CO2 ABG O2 Saturation ABG O2 Content ABG Base Excess ABG Hemoglobin ABG Carboxyhemoglobin POC ABG HHb (Measured) ABG Methemoglobin ABG O2 Capacity Hgb O2 Saturation FiO2 Sodium Potassium Chloride Carbon Dioxide Anion Gap BUN Creatinine Est GFR ( Amer) Est GFR (Non-Af Amer) POC Glucose (mg/dL) 138 H 140 H 129 H Random Glucose Calcium Magnesium Total Bilirubin Direct Bilirubin AST ALT Alkaline Phosphatase Total Protein Albumin Globulin Albumin/Globulin Ratio 12/23/17 12/23/17 12/23/17 05:00 05:47 06:00 WBC RBC Hgb Hct MCV MCH MCHC RDW Plt Count MPV Gran % Lymph % (Auto) Collin % (Auto) Eos % (Auto) Baso % (Auto) Gran # Lymph # (Auto) Collin # (Auto) Eos # (Auto) Baso # (Auto) pCO2 80 H* pO2 51.0 L HCO3 49.6 H* ABG pH 7.40 ABG Total CO2 52.1 H ABG O2 Saturation 93.3 L ABG O2 Content 16.8 ABG Base Excess 20.2 H ABG Hemoglobin 13.3 ABG Carboxyhemoglobin 3.0 H POC ABG HHb (Measured) 6.5 H ABG Methemoglobin 0.7 ABG O2 Capacity 18.0 Hgb O2 Saturation 89.8 L FiO2 21.0 Sodium 143 Potassium 4.2 Chloride 89 L Carbon Dioxide 46 H Anion Gap 12 BUN 18 Creatinine 0.4 L Est GFR ( Amer) > 60 Est GFR (Non-Af Amer) > 60 POC Glucose (mg/dL) 130 H Random Glucose 133 H Calcium 9.2 Magnesium 2.3 H Total Bilirubin 0.4 Direct Bilirubin 0.1 AST 39 H D ALT 114 H Alkaline Phosphatase 75 Total Protein 7.9 Albumin 4.4 Globulin 3.5 Albumin/Globulin Ratio 1.3 12/23/17 12/23/17 06:00 11:24 WBC 5.1 D RBC 4.64 Hgb 13.9 Hct 44.6 MCV 96.1 MCH 30.0 MCHC 31.2 RDW 14.0 Plt Count 236 MPV 11.4 H Gran % 83.5 H Lymph % (Auto) 12.7 L Collin % (Auto) 3.8 Eos % (Auto) 0.0 L Baso % (Auto) 0.0 Gran # 4.22 Lymph # (Auto) 0.6 L Collin # (Auto) 0.2 Eos # (Auto) 0.0 Baso # (Auto) 0.00 pCO2 pO2 HCO3 ABG pH ABG Total CO2 ABG O2 Saturation ABG O2 Content ABG Base Excess ABG Hemoglobin ABG Carboxyhemoglobin POC ABG HHb (Measured) ABG Methemoglobin ABG O2 Capacity Hgb O2 Saturation FiO2 Sodium Potassium Chloride Carbon Dioxide Anion Gap BUN Creatinine Est GFR ( Amer) Est GFR (Non-Af Amer) POC Glucose (mg/dL) 127 H Random Glucose Calcium Magnesium Total Bilirubin Direct Bilirubin AST ALT Alkaline Phosphatase Total Protein Albumin Globulin Albumin/Globulin Ratio Critical Care Progress Note - Nutrition Nutrition: Nutrition Category Date Time Status Dysphagia/Modified Consistency Diet [DIET] Diets 12/18/17 Breakfast Ordered Assessment/Plan - Assessment and Plan (Free Text) Assessment: Patient seen and examined on rounds with resident, agree with note with following additions/exceptions: Patient is 72yo female with PMhx COPD (with prior intubations for exacerbations) , asthma, HTN, and pulmonary HTN, a/w hypercapnic resp failure. Currently afebrile, HD stable, comfortable in NAD, on 2LNC, doing well, AAOx2 ABG with chronic resp acisosis, compensated, normalized pH. COPD exacerbation Resp failure Pulm HTN Recommend: - supp o2, goal sat 90%, BIPAP as needed - pulmonary follow up - Prednisone 40mg daily wih taper - RocephinLorna PRN - BP control - GI ppx - DVT ppx - stable, transfer to telemetry
--- NOTE | 2017-12-23 14:03 | PN ---
DATE: 12/23/2017 SUBJECTIVE: The patient was seen in room ICU, bed 3. The patient was seen with the patient nursing according to the patient's nurse, Lorena. The patient had an episodic period of questionable confusion noted by the nurses, but this morning the patient is now alert, awake, oriented x3. Out of bed to chair. The patient was able to name her name, my name, year, date, month. The patient was able to spell her last name forward. PHYSICAL EXAMINATION: VITAL SIGNS: T-max 98.6. Telemetry shows sinus rhythm, heart rate 86, 77, 89, blood pressure 163/107, 157/106, 172/97, 149/94, 158/97, respirations 45, 43, 42, O2 sat 100% to 99% on nasal cannula and BiPAP. HEENT: Head: Normocephalic, atraumatic. HEENT examination shows pinkish conjunctivae. Anicteric sclerae. No oropharyngeal lesion. The patient is presently on BiPAP at present. NECK: No neck rigidity. No jugular venous distention. Chest: Kyphosis. Improved air entry noted, but no wheezing noted today. CARDIOVASCULAR: S1 and S2, regular rhythm. Questionable systolic murmur, left sternal border, right second intercostal space. ABDOMEN: Soft. Positive bowel sounds. GENITALIA: Female. RECTAL: Deferred. EXTREMITIES: Shows no pitting edema, no calf tenderness, no Homans' sign. NEUROLOGICAL: The patient is alert, awake, oriented x3. Cranial nerves II through XII intact and limited. Gait examination is not tested. MUSCULOSKELETAL: Shows a body mass index of 31.3. PSYCHIATRIC: Negative. DIAGNOSTICS: On 12/23/2017, WBC 5.1, hemoglobin and hematocrit 13.9 and 44.6, platelet 236, granulocyte 33.5. ABG on 21% FiO2, pH of 7.4, pCO2 80, pO2 51, bicarb 59, saturation of 93%. Sodium 143, potassium 4.2, chloride 89, CO2 46, anion gap 12, BUN 18, creatinine 0.4, GFR greater than 60, glucose 133, 130, 129, 140, calcium 9.2, magnesium 2.3. AST is 39, ALT is 114. Blood cultures, urine cultures no growth. IMPRESSION: 1. Questionable and possible steroid versus ICU psychosis with episodic confusion. 2. Acute exacerbation of chronic obstructive pulmonary disease. 3. Status post ventilator-dependent acute hypoxic hypercarbic respiratory failure. 4. Severe respiratory acidosis. 5. Uncontrolled hypertension. 6. Transient tachycardia. 7. Tachypnea. 8. Hypoxemia. 9. Transient leukopenia. 10. Granulocytosis. 11. Severe respiratory acidosis with hypercarbia, hypercapnia and CO2 narcosis with hypoxemia. 12. Refractory acute exacerbation of [id number] hypoxic hypercarbic respiratory failure with refractory slow resolving respiratory acidosis. 13. Metabolic alkalosis. 14. Steroid-induced hyperglycemia. 15. Transaminitis. 16. Hypovitaminosis D. 17. Acute exacerbation of chronic obstructive pulmonary disease with hyperinflation. 18. Questionable and possible ICU versus steroid psychosis. 1. Status post ventilator-dependent respiratory failure secondary to acute hypoxic hypercarbic respiratory failure with respiratory acidosis. 2. Acute exacerbation of chronic obstructive pulmonary disease. 3. Recurrent tpkzw-[id number] hypoxic hypercarbic respiratory failure with persistent hypercarbia and hypoxemia and respiratory acidosis. 4. Tachycardia. 5. Uncontrolled hypertension. 6. Tachypnea. 7. Hypoxemia. 8. Leukopenia. 9. Granulocytosis. 10. Persistent recurrent bdtyn-cb-ldxryky and acute recurrent hypoxic hypercarbic respiratory failure with respiratory acidosis. 11. Metabolic alkalosis. 12. Hyperglycemia. 13. Transaminitis. 14. Hypovitaminosis D. 15. Non-hemolyzed hyperkalemia. 16. Constipation. 17. Hypothyroidism. 18. Mild oropharyngeal dysphagia with [id number] aspiration risk secondary to minimal fatigue, minimal oral residue and missing teeth. 1. Acute exacerbation of chronic obstructive pulmonary disease. 2. Relapsing recurrent hypercarbia and respiratory acidosis. 3. Mild normocytic anemia with granulocytosis. 4. Non-hemolyzed hyperkalemia. 5. Metabolic alkalosis with rising pCO2. 6. Hyperglycemia. 7. Transaminitis. 8. Hypovitaminosis D. 9. Chronic obstructive pulmonary disease with pulmonary hyperinflation. 10. Left ventricular hypertrophy with repolarization abnormalities and possible anterior ischemic changes on the EKG. 11. Status post ventilator dependent. 12. Acute hypoxic hypercarbic respiratory failure with respiratory acidosis. 13. Acute exacerbation of chronic obstructive pulmonary disease with acute hypoxic respiratory failure with hypercapnia. 14. Acute exacerbation of chronic obstructive pulmonary disease with acute ventilator respiratory failure with hypercapnia. 15. Hypertensive cardiovascular disease with ejection fraction of 68%. 16. Concentric left ventricular hypertrophy with grade I abnormal relaxation patterns. 17. Moderately sclerotic aortic valve. 18. Moderate mitral regurgitation with moderately thickened mitral valve. 19. Trace tricuspid regurgitation. 1. Acute ventilator-dependent acute hypercarbic, hypoxemic respiratory failure and carbon dioxide narcosis. 2. Hypertension. 3. Persistent recurrent, refractor hypercarbia and mild respiratory acidosis. 4. Tachypnea. 5. Hypertension. 6. Mild normocytic anemia. 7. Granulocytosis. 8. Mild non-hemolyzed hyperkalemia. 9. Prerenal kidney injury. 10. Hyperglycemia. 11. Transaminitis. 12. Hypovitaminosis D. 13. Left ventricular ejection fraction of 68% with concentric left ventricular hypertrophy and grade 1 abnormal relaxation pattern. 14. Moderately dilated left atrium. 15. Moderately sclerotic aortic valve. 16. Moderately thickened mitral valve with moderate mitral regurgitation. 17. Hyperlipidemia. 18. Constipation. 1. Acute hypercarbic hypoxic respiratory failure with respiratory acidosis and hypercarbia and carbon dioxide narcosis. 2. Acute exacerbation of chronic obstructive pulmonary disease. 3. Acute ventilator-dependent hypercarbic hypercapnic hypoxic respiratory failure with severe respiratory acidosis. 4. Bronchospasm. 5. Severe acute exacerbation of chronic obstructive pulmonary disease. 6. Tachycardia. 7. Tachypnea. 8. Fever. 9. Febrile illness. 10. Questionable systemic inflammatory response syndrome. 11. Mild normocytic anemia. 12. Granulocytosis. 13. Recurrent hypercarbia and hypercapnia with mild respiratory acidosis and recurrent respiratory acidosis. 14. Prerenal kidney injury. 15. Transaminitis. 16. Hypovitaminosis D. 17. History of hypothyroidism. 18. Left ventricular ejection fraction of 68%. 19. Moderate concentric left ventricular hypertrophy. 20. Grade 1 abnormal relaxation pattern. 21. Moderately dilated left atrium. 22. Moderately sclerotic aortic valve. 23. Moderately thickened mitral valve with moderate mitral regurgitation. 24. Mild oropharyngeal dysphagia with low to moderate risk for aspiration due to minimal fatigue, minimal oral residue, missing teeth and multiple swallows. 25. History of hyperlipidemia. 1. Status post acute ventilator dependent hypercarbic hypoxic respiratory failure with carbon dioxide narcosis and respiratory acidosis. 2. Status post extubation. 3. Hypertension. 4. Mild normocytic anemia with granulocytosis. 5. Acute hypercarbic hypoxic ventilator-dependent respiratory failure, status post extubation with respiratory acidosis, hypercarbia and carbon dioxide narcosis. 6. Prerenal kidney injury. 7. Transaminitis. 8. Hypovitaminosis D. 9. Hypertensive cardiovascular disease with repolarization abnormalities. 10. Left ventricular ejection fraction of 68%. 11. Moderate concentric left ventricular hypertrophy with grade 1 abnormal relaxation pattern. 12. Moderately dilated left atrium. 13. Moderately sclerotic aortic valve. 14. Moderately thickened mitral valve with moderate mitral regurgitation. 15. Trace tricuspid regurgitation. 16. Carbon dioxide narcosis. 17. Acute exacerbation of severe chronic obstructive pulmonary disease. 18. History of hypothyroidism. 19. History of pulmonary hypertension. 20. High-grade fever of 101 degrees Fahrenheit. 21. Deconditioning. 22. Gait dysfunction. 23. History o hyperlipidemia. 24. History of constipation. 25. History of hypovitaminosis D. 1. Acute hypercarbic hypercapnic hypoxic ventilator-dependent respiratory failure with severe respiratory acidosis. 2. Resolving bronchospasm. 3. Fever of 100.8. 4. Mild normocytic anemia. 5. Granulocytosis. 6. Hypercarbia. 7. CO2 narcosis. 8. Transaminitis. 9. History of hypothyroidism. 10. Hypertensive cardiovascular disease with T-wave inversion I, aVL, V1 to V6. 11. Borderline hypokalemia. 1. Ventilator-dependent acute hypercarbic hypercapnic hypoxic respiratory failure with severe respiratory acidosis. 2. Bronchospasm. 3. Acute exacerbation of chronic obstructive pulmonary disease. 4. Normocytic anemia with granulocytosis. 5. Hypercarbia and hypercapnia. 6. Carbon dioxide narcosis. 7. Severe respiratory acidosis and hypoxemia. 8. Metabolic alkalosis. 9. Hyperglycemia. 10. Transaminitis. 11. Mild acute exacerbation of right-sided diastolic congestive heart failure with elevated BNP. 12. Indeterminate troponin. 13. Sinus tachycardia. 14. Left axis deviation. 15. Ventilator-dependent respiratory failure. 16. History of hypertension, hyperlipidemia, hypothyroidism, hypovitaminosis D. 17.Mild oropharyngeal dysphagia with [id number]-dtkficyf risk for aspiration due to minimal fatigue, minimal oral residue, missing teeth and multiple swallows needed per single bolus PLAN AT THIS TIME: The patient will be considered for transfer out of the ICU, if cleared by cardiology and pulmonary and if patient clinical status stays stable for transfer. The patient will have serial labs done. TCU evaluation ordered. Current medications; Ecotrin 325 mg daily, Atrovent nebulizer every 6 hours 0.5 mg and every 2 hours p.r.n., Cozaar started at 50 mg daily, doxycycline 100 mg p.o. every 12, Drisdol 50,000 units weekly, Lipitor 10 mg daily, Lovenox 40 mg subcu daily, MiraLax 17 g daily, Protonix 40 mg daily, Pulmicort nebulizer 1 mg every 12 hours, Solu-Medrol decreased to 30 mg IV every 12, Synthroid 50 mcg daily, Tylenol 650 mg suppository every 6 p.r.n., Xopenex nebulizer 0.63 mg four times a day and every 2 p.r.n. We will discontinue the Zestril. The patient will be started on Cozaar 50 mg daily. The patient has been ordered Zofran 4 mg IV every 4 p.r.n. The patient is on BiPAP 06/25, FiO2 40%, rate of 14. The patient is on dysphagia modified consistency diet as per swallowing evaluation because the patient was found to have mild oropharyngeal dysphagia with [id number] risk for aspiration due to minimal fatigue, minimal oral residue, missing teeth and multiple swallows needed per single bolus. The patient is ordered out of bed, ADRIANNA stockings, SCDs, physical therapy, occupational therapy. At present, the patient's condition was updated. Explained to the patient, the patient's daughter and two sons who I have met with them regularly during this hospitalization and I have spoken to the patient's daughter on the phone at length and all questions concern answered. I have explained to the patient and the patient's family that they should contact social secretary, case management regarding discharge planning and equipment needed at home including respiratory support, respiratory apparatus, nebulizer and noninvasive ventilation issues. The patient will be transferred out of the ICU to telemetry in front of the nursing station. The patient will be followed closely by Pulmonary and Cardiology. Prognosis guarded, family explained of above. Dictated and electronically signed, not read. Garett Rodríguez MD MTDD
[2017-12-23 15:04] LABS: ARTERIAL BLOOD GAS HEMOGLOBIN 13.5 g/dL (11.7-17.4); ARTERIAL BLOOD GAS O2 CAPACITY 18.4 mL/dl (16-24); ARTERIAL BLOOD GAS O2 CONTENT 11.9 ML/dl (15-23); ARTERIAL BLOOD GAS O2 SAT 64.6 % (95-98)
[2017-12-23 15:06] LABS: ARTERIAL BLOOD GAS PCO2 > 150 mm/Hg (35-45); ARTERIAL BLOOD GAS PH 7.12 (7.35-7.45)
[2017-12-23] MEDS ORDERED: Propofol 10 mg/ml Inj (20 ML) ONE (15:19)
[2017-12-23] MEDS ORDERED: Midazolam 2 MG/2 ML VIAL ONE (15:19)
[2017-12-23] MEDS ORDERED: Midazolam 100 mg/100ml in NS 100 MG/100 ML SOL IV PRN (15:31)
[2017-12-23] MEDS ORDERED: Midazolam 2 MG/2 ML VIAL IVP ONE ×2 (15:32)
[2017-12-23] MEDS ORDERED: Propofol 10 mg/ml Inj (20 ML) IVP ONE ×2 (15:33→15:59)
[2017-12-23] MEDS ORDERED: Sodium Chloride 0.9% 1,000 ML IV STA ×5 (15:33→17:53)
--- NOTE | 2017-12-23 15:57 | CP.PCM.PN ---
Subjective - Date & Time of Evaluation Date of Evaluation: 12/23/17 Time of Evaluation: 14:00 - Subjective Subjective: Patient re-evaluated this afternoon on PM rounds, found to be lethargic, ABg obtained which showed severe hypercapnia, resp acidosis, patient subsequently successfully intubated. Will increase steroids to Solumedrol 60mg IV q8hr, obtain CT head and CT chest without contrast. Primary team at bedside. Family notified. Patient remains critical. Objective - Vital Signs/Intake and Output Vital Signs (last 24 hours): Temp Pulse Resp BP Pulse Ox 98.6 F 91 H 46 H 201/103 H 100 12/23/17 04:00 12/23/17 13:24 12/23/17 05:05 12/23/17 11:50 12/23/17 05:05 Intake and Output: 12/23/17 12/23/17 06:59 18:59 Intake Total 250 Output Total 600 Balance -350 - Medications Medications: Current Medications Acetaminophen (Tylenol 650 Mg Supp) 650 mg RC Q6H PRN PRN Reason: TEMP>=99.5F Last Admin: 12/17/17 08:30 Dose: 650 mg Aspirin (Aspirin) 325 mg PO DAILY [facility] Last Admin: 12/23/17 09:07 Dose: 325 mg Atorvastatin Calcium (Lipitor) 10 mg PO DIN [facility] Last Admin: 12/22/17 17:42 Dose: 10 mg Budesonide (Pulmicort Respules) 1 mg IH [id number] [facility] Last Admin: 12/23/17 07:18 Dose: 0.5 mg Doxycycline Hyclate (Doryx) 100 mg PO Q12 [facility] Last Admin: 12/23/17 09:07 Dose: 100 mg Enoxaparin Sodium (Lovenox) 40 mg SC DAILY [facility] PRN Reason: Protocol Last Admin: 12/23/17 09:07 Dose: 40 mg Ergocalciferol (Drisdol 50,000 Intl Units Cap) 1 cap PO Q7D [facility] Last Admin: 12/20/17 10:07 Dose: 1 cap Hydralazine HCl (Apresoline) 10 mg IVP Q6 PRN PRN Reason: Systolic Blood Pressure Midazolam 100 mg/100ml in NS (Midazolam 100 Mg/100ml In Ns) 100 mg in 100 mls @ 1 mls/hr IV .Q24H PRN; Protocol; 1 MG/HR PRN Reason: Sedation Sodium Chloride (Sodium Chloride 0.9%) 1,000 mls @ 999 mls/hr IV .Q1H1M STA Stop: 12/23/17 16:33 Sodium Chloride (Sodium Chloride 0.9%) 1,000 mls @ 999 mls/hr IV .Q1H1M STA Stop: 12/23/17 16:38 Ipratropium [place] (Atrovent) 0.5 mg IH [id number] [facility] Last Admin: 12/23/17 13:17 Dose: 0.5 mg Ipratropium [place] (Atrovent) 0.5 mg IH Q2H PRN PRN Reason: Shortness of Breath Levalbuterol HCl (Xopenex) 0.63 mg IH Q2 PRN PRN Reason: Shortness of Breath Levalbuterol HCl (Xopenex) 0.63 mg IH 0200,0800,1400,2000 [facility] Last Admin: 12/23/17 13:17 Dose: 0.63 mg Losartan Potassium (Cozaar) 50 mg PO DAILY [facility] Last Admin: 12/23/17 11:15 Dose: Not Given Methylprednisolone (Solu-Medrol) 60 mg IV Q8H [facility] Ondansetron HCl (Zofran Inj) 4 mg IVP Q4H PRN PRN Reason: Nausea/Vomiting Pantoprazole Sodium (Protonix Ec Tab) 40 mg PO 0600,1600 [facility] Last Admin: 12/23/17 06:04 Dose: 40 mg Polyethylene Glycol (Miralax) 17 gm PO DAILY [facility] Last Admin: 12/23/17 09:07 Dose: 17 gm - Labs Labs: 12/23/17 06:00 12/23/17 06:00 PT 13.6 SECONDS (9.4-12.5) H 12/17/17 06:00 INR 1.18 (0.93-1.08) H 12/17/17 06:00 APTT 23.2 Seconds (25.1-36.5) L 12/17/17 06:00
--- NOTE | 2017-12-23 16:06 | RAD ---
HISTORY: intubated COMPARISON: 12/20/2017 FINDINGS: LUNGS: The endotracheal tube and nasogastric tube are in satisfactory position. The lungs are clear PLEURA: No significant pleural effusion identified, no pneumothorax apparent. CARDIOVASCULAR: Normal. OSSEOUS STRUCTURES: No significant abnormalities. VISUALIZED UPPER ABDOMEN: Normal. OTHER FINDINGS: None. IMPRESSION: Endotracheal tube and nasogastric tube in satisfactory position
[2017-12-23] MEDS ORDERED: Sodium Chloride 0.9% 1,000 ML IV SCH (16:15)
--- NOTE | 2017-12-23 16:37 | PCM.PROC ---
Procedures Attestation:: I certify that I have explained the specified Operation(s) or Procedure(s), risks, benefits and reasonable alternatives to the Patient and/or other person responsible. The opportunity was given to ask questions and all questions answered - Intubation Time Out Performed: Yes Sedative: Versed, Other (propofol) Laryngoscope: Luzma ET Tube Size: 8.0 ET Tube Secured at Depth: 23 ET Tube Secured Locarion: Lips ET Tube Placement Confirmation: Visualized Passing Through Cords, Breath Sounds Equal Bilaterally, No Breath Sounds Over Epigastrum, Confirmation w/Capnometry Patient Tolerated Procedure: Well Procedure Immediate Complications: None
[2017-12-23] MEDS ORDERED: Cefepime 1gm in NS 100ml 1 GM/100 ML BAG IVPB SCH (17:00)
[2017-12-23] MEDS ORDERED: Vancomycin 1gm in NS 250ml 1 GM/250 ML BAG IVPB SCH (17:00)
[2017-12-23 17:08] LABS: ARTERIAL BLOOD GAS HCO3 27.3 mmol/L (21-28); ARTERIAL BLOOD GAS O2 SAT 99.9 % (95-98); ARTERIAL BLOOD GAS PCO2 44 mm/Hg (35-45); ARTERIAL BLOOD GAS TCO2 28.7 mmol.L (22-28)
[2017-12-23] MEDS ORDERED: NOREPINEPHRINE BIT/0.9 % NACL 4 MG/250 ML BAG IV ONE (17:08)
[2017-12-23] MEDS: NOREPINEPHRINE BIT/0.9 % NACL 4 MG/250 ML BAG IV PRN (17:10)
--- NOTE | 2017-12-23 17:50 | PCM.PROC ---
Procedures Attestation:: I certify that I have explained the specified Operation(s) or Procedure(s), risks, benefits and reasonable alternatives to the Patient and/or other person responsible. The opportunity was given to ask questions and all questions answered - Central Line Placement Left Internal Jugular Triple Lumen Catheter Aseptic technique was employed throughout the procedure: Hand Hygiene done prior to procedure, Full sterile barriers (mask, hair cover, sterile gown, sterile gloves), Full body sterile drape, Chloraprep Antiseptic: 30 second prep for IJ or SC sites CVP Time Out Performed: Yes Pt. Placed on Pulse Ox Monitor: Yes Central Line Prep: Chlorhexidine-Alcohol Combination Local Anesthesia Used: Lidocaine 1% Amount of Anesthesia Used (mls): 2 Ultrasound Used for Placement: Yes Central Line Lumen Inserted: triple Central Line Length: 20 cm Post Procedure: Sutured in Place, Good Blood Return, All Ports Aspirated, Flushed, Capped, Sterile Dressing Applied Secured by: Securement device (and suture) Post procedure dressing: Clear vapor permeable, Chlorhexidine disc (Biopatch) Post Procedure X-Ray: Yes Patient Tolerated Procedure: Well Immediate Complications: None
[2017-12-23] MEDS: Sodium Chloride 0.9% 1,000 ML IV SCH (18:00)
--- NOTE | 2017-12-23 18:00 | CP.PCM.PN ---
Subjective - Date & Time of Evaluation Date of Evaluation: 12/23/17 Time of Evaluation: 17:58 - Subjective Subjective: Patient reintubated this afternoon for hypercapnic resp failure. Pt then developed hypotension, despite 4L NS bolus. Pt had L IJ TLC placed under U/S, ( CXR pending), vasopressors started. PLAN: Vasopressor support, Levo, Vaso, stress dose steroids CT head CT chest IVF repeat labs, CBC, CMP, EKG, Troponin Patient remains critical, at high risk for morbidity and mortality. Objective - Vital Signs/Intake and Output Vital Signs (last 24 hours): Temp Pulse Resp BP Pulse Ox 98.6 F 91 H 46 H 201/103 H 100 12/23/17 04:00 12/23/17 13:24 12/23/17 05:05 12/23/17 11:50 12/23/17 05:05 Intake and Output: 12/23/17 12/23/17 06:59 18:59 Intake Total 250 Output Total 600 Balance -350 - Medications Medications: Current Medications Acetaminophen (Tylenol 650 Mg Supp) 650 mg RC Q6H PRN PRN Reason: TEMP>=99.5F Last Admin: 12/17/17 08:30 Dose: 650 mg Aspirin (Aspirin) 325 mg PO DAILY [facility] Last Admin: 12/23/17 09:07 Dose: 325 mg Atorvastatin Calcium (Lipitor) 10 mg PO DIN [facility] Last Admin: 12/22/17 17:42 Dose: 10 mg Budesonide (Pulmicort Respules) 1 mg IH [id number] [facility] Last Admin: 12/23/17 07:18 Dose: 0.5 mg Doxycycline Hyclate (Doryx) 100 mg PO Q12 [facility] Last Admin: 12/23/17 09:07 Dose: 100 mg Enoxaparin Sodium (Lovenox) 40 mg SC DAILY [facility] PRN Reason: Protocol Last Admin: 12/23/17 09:07 Dose: 40 mg Ergocalciferol (Drisdol 50,000 Intl Units Cap) 1 cap PO Q7D [facility] Last Admin: 12/20/17 10:07 Dose: 1 cap Hydralazine HCl (Apresoline) 10 mg IVP Q6 PRN PRN Reason: Systolic Blood Pressure Midazolam 100 mg/100ml in NS (Midazolam 100 Mg/100ml In Ns) 100 mg in 100 mls @ 1 mls/hr IV .Q24H PRN; Protocol; 1 MG/HR PRN Reason: Sedation Cefepime HCl (Maxipime 1gm) 1 gm in 100 mls @ 100 mls/hr IVPB Q24H [facility] PRN Reason: Protocol Vancomycin HCl (Vancomycin 1gm) 1 gm in 250 mls @ 167 mls/hr IVPB DAILY [facility] PRN Reason: Protocol NOREPINEPHRINE BIT/0.9 % NACL (Levophed 4 Mg/ 250 Ml Ns Premixed) 4 mg in 250 mls @ 15 mls/hr IV .Q30H78B PRN; Protocol; 4 MCG/MIN PRN Reason: TITRATE PER MD ORDER Ipratropium [place] (Atrovent) 0.5 mg IH [id number] [facility] Last Admin: 12/23/17 13:17 Dose: 0.5 mg Ipratropium [place] (Atrovent) 0.5 mg IH Q2H PRN PRN Reason: Shortness of Breath Levalbuterol HCl (Xopenex) 0.63 mg IH Q2 PRN PRN Reason: Shortness of Breath Levalbuterol HCl (Xopenex) 0.63 mg IH 0200,0800,1400,2000 [facility] Last Admin: 12/23/17 13:17 Dose: 0.63 mg Losartan Potassium (Cozaar) 50 mg PO DAILY [facility] Last Admin: 12/23/17 11:15 Dose: Not Given Methylprednisolone (Solu-Medrol) 60 mg IV Q8H [facility] Ondansetron HCl (Zofran Inj) 4 mg IVP Q4H PRN PRN Reason: Nausea/Vomiting Pantoprazole Sodium (Protonix Inj) 40 mg IVP Q12 [facility] Polyethylene Glycol (Miralax) 17 gm PO DAILY [facility] Last Admin: 12/23/17 09:07 Dose: 17 gm - Labs Labs: 12/23/17 06:00 12/23/17 06:00 PT 13.6 SECONDS (9.4-12.5) H 12/17/17 06:00 INR 1.18 (0.93-1.08) H 12/17/17 06:00 APTT 23.2 Seconds (25.1-36.5) L 12/17/17 06:00
--- NOTE | 2017-12-23 18:01 | CON ---
CHIEF COMPLAINT: Altered mental status. HISTORY OF PRESENT ILLNESS: This is a 72-year-old woman with past medical history of COPD with prior intubations for exacerbation, asthma, pulmonary hypertension, and chronic neck and back pain, came to [facility] ([facility]) for worsening shortness of breath and found to be in hypercarbic respiratory failure, failing on BiPAP in the ER, intubated and placed on mechanical ventilation. Her initial ABG showed severe respiratory acidosis with retention of CO2, hypoxic hypercapnic respiratory failure. I was called to evaluate. Spontaneous movements of extremities were seen. She is following simple commands, but is currently intubated and put on propofol for now. She had elevated systolic and diastolic blood pressures. She withdraws to localized noxious stimulus. PAST MEDICAL HISTORY: As above. SOCIAL HISTORY: No illicit drug use, smoking, or EtOH abuse. ALLERGIES: ALLERGIC TO PEANUTS. FAMILY HISTORY: Noncontributory. MEDICATIONS: Reviewed by nurse per reconciliation sheet. REVIEW OF SYSTEMS: A 14-point review of system is negative except in the HPI. PHYSICAL EXAMINATION: VITAL SIGNS: Temperature is 98.6, pulse rate of 93, blood pressure 201/103, respiratory rate of 25. GENERAL: The patient is currently intubated. HEENT: Atraumatic, normocephalic. PERRLA. Extraocular muscles intact. NECK: Supple. No JVD. No adenopathy noted. LUNGS: Decreased breath sounds bilaterally. ABDOMEN: Soft, nontender, and nondistended. Bowel sounds present. EXTREMITIES: No clubbing. No cyanosis. Peripheral pulses 2+ felt bilaterally. HEART: S1 and S2, normal rate and rhythm. No murmur, rubs, or gallops. NEUROLOGIC: The patient is lethargic, currently intubated, on propofol. Difficult to asses speech at this time. Cranial nerves II through XII are intact. Motor exam: Spontaneous movements of all extremities are noted. Moves all extremities equally. Tone is normal. Sensory exam: The patient withdraws to localized noxious stimulus. Light touch is intact. DTRs are 2+ throughout and 1 at the ankles. Coordination and gait deferred for now. LABORATORY DATA: Sodium is 143, potassium 4.2, chloride 89, carbon dioxide of 46. BUN of 18, creatinine 0.4. Random glucose 133. ABG; pCO2 is more than 150, pO2 is 36, pH is 7.12, bicarb is 49.6. ASSESSMENT AND PLAN: This is a 72-year-old woman with past medical history of chronic obstructive pulmonary disease with prior intubations for exacerbation, asthma, pulmonary hypertension, hypertension, chronic back and neck pain, who came for worsening shortness of breath and found to be in hypercarbic respiratory failure and found to have elevated pCO2 of more than 150 and pO2 of 36 with pH of 7.12. Likely, altered mental status is secondary to toxic metabolic encephalopathy from underlying chronic CO2 retention/hypoxic hypercapnic respiratory failure with a mixed chronic obstructive pulmonary disease and possible congestive heart failure exacerbation. At this time, we recommend; 1. Empirically treat for pneumonia with doxycycline. 2. Solu-Medrol, Xopenex, Atrovent, budesonide, pulmonary toileting aggressively. 3. She had elevated systolic and diastolic blood pressures, keep her systolic between 140s to 160s and diastolic 70s to 80s. 4. Get MRI of the brain to assess for any acute intracranial abnormality due to elevated systolic blood pressures. 5. Monitor electrolytes and correct accordingly. Continue with ICU management. Parish Hardy MD
--- NOTE | 2017-12-23 18:27 | RAD ---
HISTORY: Left central line placement COMPARISON: December 23, 2017. Study performed 15:30. FINDINGS: LUNGS: No active pulmonary disease. PLEURA: No significant pleural effusion identified, no pneumothorax apparent. CARDIOVASCULAR: No significant interval change compared to the prior examination(s). OSSEOUS STRUCTURES: No significant abnormalities. VISUALIZED UPPER ABDOMEN: Normal. OTHER FINDINGS: Stable position of nasogastric tube and endotracheal tube. Venous access catheter in satisfactory position. Catheter inserted via left IJV approach. IMPRESSION: No pneumothorax following venous access catheter placement. Overall no interval change.
[2017-12-23 19:19] LABS: GRAN # 10.54 (1.4-6.5); GRAN % 82.4 % (50.0-68.0); HEMOGLOBIN 11.8 g/dL (12.0-16.0); LYMPH # 1.6 (1.2-3.4); LYMPH % 12.2 % (22.0-35.0); MEAN CELL VOLUME 93.5 fl (80.0-105.0); MEAN CORPUSCULAR HEMOGLOBIN 29.3 pg (25.0-35.0); MEAN CORPUSCULAR HGB CONC 31.3 g/dl (31.0-37.0); MONO # 0.7 (0.1-0.6); MONO % 5.4 % (1.0-6.0); RBC 4.03 10^6/uL (3.5-6.1); RED CELL DISTRIBUTION WIDTH 13.5 % (11.5-14.5); WHITE BLOOD COUNT 12.8 10^3/ul (4.5-11.0)
[2017-12-23 19:36] LABS: TROPONIN I < 0.01 ng/mL
[2017-12-23 19:39] LABS: ALB/GLOB RATIO 1.2 (1.1-1.8); ALBUMIN 2.8 g/dL (3.0-4.8); ALT/SGPT 76 U/L (7-56); AST/SGOT 23 U/L (14-36); BLOOD UREA NITROGEN 19 mg/dL (7-21); CALCIUM 7.2 mg/dL (8.4-10.5); GFR AFRICAN-AMERICAN > 60; GFR NON-AFRICAN AMERICAN > 60
--- NOTE | 2017-12-23 23:02 | CT ---
EXAM: CT Head Without Intravenous Contrast CLINICAL HISTORY: 72 years old, female; Signs and symptoms; Altered mental status/memory loss; Confusion or disorientation; Additional info: AMS TECHNIQUE: Axial computed tomography images of the head/brain without intravenous contrast. All CT scans at this facility use one or more dose reduction techniques, viz.: automated exposure control; ma/kV adjustment per patient size (including targeted exams where dose is matched to indication; i.e. head); or iterative reconstruction technique. COMPARISON: CT - HEAD W/O CONTRAST 2017-08-07 17:08 FINDINGS: Limitations: Suboptimal positioning. Brain: Mild atrophy. No intracranial hemorrhage. No mass. Few scattered foci of decreased attenuation within periventricular/subcortical white matter. Probable chronic lacunar infarct about RIGHT basal ganglia. No definite edema. Ventricles: No hydrocephalus. Bones/joints: No acute fracture. Soft tissues: Unremarkable. Vasculature: Mild atherosclerotic disease of intracranial arteries. Sinuses: No acute sinusitis. Mastoid air cells: No mastoid effusion. Orbits: Unremarkable as visualized. Tubes, lines and devices: Endotracheal tube. Orogastric tube. IMPRESSION: 1. Nonspecific white matter changes. Acute infarction may be CT occult within first 24 hours. If a focal deficit persists, consider followup CT or MRI for further evaluation. 2. Incidental/non-acute findings are described above.
--- NOTE | 2017-12-23 23:13 | CT ---
EXAM: CT Chest Without Intravenous Contrast CLINICAL HISTORY: 72 years old, female; Signs and symptoms; Shortness of breath; Additional info: AMS, hypoxia, R/O pe TECHNIQUE: Axial computed tomography images of the chest without intravenous contrast. All CT scans at this facility use one or more dose reduction techniques, viz.: automated exposure control; ma/kV adjustment per patient size (including targeted exams where dose is matched to indication; i.e. head); or iterative reconstruction technique. Coronal and sagittal reformatted images were created and reviewed. COMPARISON: No relevant prior studies available. FINDINGS: Limitations: Lack of intravenous contrast. Motion artifact - mild. Streak artifact - mild. Lungs: Moderate to extensive patchy airspace disease within left lower lobe with associated volume loss. Mild patchy airspace disease within right lower lobe with associated volume loss. Minimal right apical scarring. 0.3 cm RIGHT upper lobe nodule. Pleural space: No pneumothorax. No significant effusion. Heart: Mild cardiomegaly. No significant pericardial effusion. Coronary artery calcifications. Thyroid: Heterogeneous, mildly enlarged with several calcifications, nodules. Bones/joints: Degenerative changes of spine. Mild compression deformity inferior endplate T11, superior endplate T12 vertebral bodies, likely subacute. Soft tissues: Small lipoma left lower chest/upper anterior abdominal wall. Vasculature: Mild atherosclerotic disease. Lymph nodes: No pathologically enlarged lymph nodes. Adrenals: Mild hypertrophy of adrenal glands. Tubes, lines and devices: NG tube extending into stomach. Endotracheal tube, tip located approximately 3 cm from rj. IMPRESSION: 1. Bibasilar atelectasis. Superimposed pneumonia not excluded. 2. Heterogeneous thyroid. Followup as clinically warranted. 3. Pulmonary nodule. For low-risk patients, no follow-up is necessary. For high-risk patients (smoking history or other known risk factors) an optional CT at 12 months could be performed. 4. Incidental/non-acute findings are described above.
[2017-12-24] MEDS: Levalbuterol 0.63 MG/3 ML Inhal Soln UD IH SCH ×4 (01:30→19:55)
[2017-12-24] MEDS: Ipratropium 0.02% Inhal Soln (0.5 mg/2.5 ml) UD IH SCH ×4 (01:30→19:55)
[2017-12-24] MEDS: NOREPINEPHRINE BIT/0.9 % NACL 4 MG/250 ML BAG IV PRN (03:42)
[2017-12-24] MEDS: Sodium Chloride 0.9% 1,000 ML IV SCH ×2 (05:43→22:11)
[2017-12-24] MEDS: Vasopressin 20 UNITS in Dextrose 5% In Water 100 ML IV SCH ×2 (05:51→16:31)
[2017-12-24] MEDS ORDERED: Levothyroxine 50 MCG TAB PO SCH (06:00)
[2017-12-24 06:55] LABS: ARTERIAL BLOOD GAS HCO3 30.4 mmol/L (21-28); ARTERIAL BLOOD GAS HEMOGLOBIN 11.2 g/dL (11.7-17.4); ARTERIAL BLOOD GAS O2 CAPACITY 15.4 mL/dl (16-24); ARTERIAL BLOOD GAS O2 CONTENT 15.4 ML/dl (15-23); ARTERIAL BLOOD GAS O2 SAT 99.8 % (95-98); ARTERIAL BLOOD GAS PCO2 34 mm/Hg (35-45); ARTERIAL BLOOD GAS PH 7.56 (7.35-7.45); ARTERIAL BLOOD GAS TCO2 31.4 mmol.L (22-28)
[2017-12-24 07:05] LABS: GRAN # 4.89 (1.4-6.5); GRAN % 84.1 % (50.0-68.0); HEMOGLOBIN 11.8 g/dL (12.0-16.0); LYMPH # 0.6 (1.2-3.4); LYMPH % 10.2 % (22.0-35.0); MEAN CELL VOLUME 91.1 fl (80.0-105.0); MEAN CORPUSCULAR HEMOGLOBIN 29.2 pg (25.0-35.0); MEAN CORPUSCULAR HGB CONC 32.1 g/dl (31.0-37.0); MONO # 0.3 (0.1-0.6); MONO % 5.7 % (1.0-6.0); RBC 4.04 10^6/uL (3.5-6.1); RED CELL DISTRIBUTION WIDTH 13.5 % (11.5-14.5); WHITE BLOOD COUNT 5.8 10^3/ul (4.5-11.0)
--- NOTE | 2017-12-24 07:40 | PN ---
DATE: 12/24/2017 PULMONARY NOTE SUBJECTIVE: The patient is now intubated and in the ICU. She is currently sedated. OBJECTIVE: VITAL SIGNS (last noted in the computer): Temperature is 99.7, pulse 91, respiratory rate is 14/12, blood pressure 111/70. HEENT: Normocephalic, atraumatic. No JVD. CARDIOVASCULAR: Systolic ejection murmur at the lower left sternal border. No S3 gallop. LUNGS: Decreased breath sounds at the bases. Mild bilateral rhonchi. No wheezing. EXTREMITIES: No clubbing, cyanosis or edema. GASTROINTESTINAL: Abdomen is soft, nondistended. Bowel sounds are positive. SKIN: No acute rash. NEUROLOGIC: Exam limited at the present time. PERTINENT LABORATORY DATA: CAT scan of the chest was done yesterday and reviewed. There is a patchy infiltrate at the left base - most concerning for pneumonia. There is also minimal infiltrate at the right base - most consistent with atelectasis. Arterial blood gas is pending for the morning. IMPRESSION: 1. Respiratory failure. 2. Left lower lobe pneumonia. 3. Sepsis syndrome. 4. Hypotension, on pressors. 5. Mild anemia. PLAN: The patient remains intubated and in the ICU. Events from yesterday are noted. I did discuss the case with the night nurse at length. I did review the CT scan of the chest. As above, the left lower lobe infiltrate is most concerning for pneumonia. I would continue with the antibiotic coverage as per Infectious Disease. I will discuss the CAT scan findings with them this morning. On physical exam, there is only mild bronchospasm noted. I will continue with the current nebulizer treatments for now. Again, we are awaiting a repeat arterial blood gas - pending. The patient is critically ill at this point in time. I will discuss the above with the entire ICU team In the next few moments. I will also discuss the above the attending physician later this morning. Edin Aguila MD [facility]ITALBrandy
[2017-12-24] MEDS: Budesonide 0.5 mg/2 ml Inhal Susp UD IH SCH ×2 (07:43→19:55)
--- NOTE | 2017-12-24 08:17 | CP.PCM.PN ---
<Tiny Sandovalm - Last Filed: 12/24/17 14:35> Subjective - Date & Time of Evaluation Date of Evaluation: 12/24/17 Time of Evaluation: 08:16 - Subjective Subjective: Medicine Progress Note - Dr Rodríguez Service: Patient seen and examined at bedside. Per nursing no acute events overnight. Patient is intubated and sedated on Versed. Patient is also on Levophed and Vasopressin drip for hypotension. ROS not obtained. Objective - Vital Signs/Intake and Output Vital Signs (last 24 hours): Temp Pulse Resp BP Pulse Ox 99.7 F H 94 H 46 H 111/70 100 12/23/17 20:45 12/23/17 22:00 12/23/17 05:05 12/23/17 20:45 12/23/17 20:45 Intake and Output: 12/24/17 12/24/17 06:59 18:59 Intake Total 235 10 Balance 235 10 - Medications Medications: Current Medications Acetaminophen (Tylenol 650 Mg Supp) 650 mg RC Q6H PRN PRN Reason: TEMP>=99.5F Last Admin: 12/17/17 08:30 Dose: 650 mg Aspirin (Aspirin) 325 mg PO DAILY [facility] Last Admin: 12/23/17 09:07 Dose: 325 mg Atorvastatin Calcium (Lipitor) 10 mg PO DIN [facility] Last Admin: 12/23/17 17:43 Dose: Not Given Budesonide (Pulmicort Respules) 1 mg IH [id number] [facility] Last Admin: 12/24/17 07:43 Dose: 0.5 mg Doxycycline Hyclate (Doryx) 100 mg PO Q12 [facility] Last Admin: 12/23/17 09:07 Dose: 100 mg Enoxaparin Sodium (Lovenox) 40 mg SC DAILY [facility] PRN Reason: Protocol Last Admin: 12/23/17 09:07 Dose: 40 mg Ergocalciferol (Drisdol 50,000 Intl Units Cap) 1 cap PO Q7D [facility] Last Admin: 12/20/17 10:07 Dose: 1 cap Hydralazine HCl (Apresoline) 10 mg IVP Q6 PRN PRN Reason: Systolic Blood Pressure Last Admin: 12/23/17 14:30 Dose: 10 mg Hydrocortisone Sodium Succinate (Solu-Cortef) 50 mg IVP Q6 [facility] Last Admin: 12/24/17 05:45 Dose: 50 mg Midazolam 100 mg/100ml in NS (Midazolam 100 Mg/100ml In Ns) 100 mg in 100 mls @ 1 mls/hr IV .Q24H PRN; Protocol; 1 MG/HR PRN Reason: Sedation Last Titration: 12/23/17 17:30 Dose: 2 mg/hr, 2 mls/hr Cefepime HCl (Maxipime 1gm) 1 gm in 100 mls @ 100 mls/hr IVPB Q24H [facility] PRN Reason: Protocol Last Admin: 12/23/17 17:55 Dose: 100 mls/hr Vancomycin HCl (Vancomycin 1gm) 1 gm in 250 mls @ 167 mls/hr IVPB DAILY [facility] PRN Reason: Protocol Last Admin: 12/23/17 18:15 Dose: 167 mls/hr NOREPINEPHRINE BIT/0.9 % NACL (Levophed 4 Mg/ 250 Ml Ns Premixed) 4 mg in 250 mls @ 15 mls/hr IV .[id number] PRN; Protocol; 4 MCG/MIN PRN Reason: TITRATE PER MD ORDER Last Titration: 12/24/17 07:38 Dose: 0 mcg/min, 0 mls/hr Sodium Chloride (Sodium Chloride 0.9%) 1,000 mls @ 80 mls/hr IV .[id number] [facility] Last Admin: 12/24/17 05:43 Dose: 80 mls/hr Vasopressin 20 units/ Dextrose 101 mls @ 9.09 mls/hr IV .Q11H7M [facility]; 0.03 U/MIN PRN Reason: Protocol Last Admin: 12/24/17 05:51 Dose: 9.09 mls/hr Acetaminophen (Ofirmev) 1,000 mg in 100 mls @ 400 mls/hr IVPB Q6H PRN PRN Reason: fever >100.4 Stop: 12/26/17 03:53 Last Admin: 12/24/17 04:17 Dose: 400 mls/hr Ipratropium Broadbent (Atrovent) 0.5 mg IH [id number] [facility] Last Admin: 12/24/17 07:42 Dose: 0.5 mg Ipratropium Broadbent (Atrovent) 0.5 mg IH Q2H PRN PRN Reason: Shortness of Breath Levalbuterol HCl (Xopenex) 0.63 mg IH Q2 PRN PRN Reason: Shortness of Breath Levalbuterol HCl (Xopenex) 0.63 mg IH 0200,0800,1400,2000 [facility] Last Admin: 12/24/17 07:43 Dose: 0.63 mg Ondansetron HCl (Zofran Inj) 4 mg IVP Q4H PRN PRN Reason: Nausea/Vomiting Pantoprazole Sodium (Protonix Inj) 40 mg IVP Q12 [facility] Polyethylene Glycol (Miralax) 17 gm PO DAILY [facility] Last Admin: 12/23/17 09:07 Dose: 17 gm - Labs Labs: 12/24/17 06:50 12/23/17 18:15 PT 13.6 SECONDS (9.4-12.5) H 12/17/17 06:00 INR 1.18 (0.93-1.08) H 12/17/17 06:00 APTT 23.2 Seconds (25.1-36.5) L 12/17/17 06:00 - Constitutional Appears: Chronically Ill - Head Exam Head Exam: ATRAUMATIC, NORMAL INSPECTION - Eye Exam Eye Exam: Normal appearance - ENT Exam Additional comments: +ETT and OGT - Neck Exam Additional comments: Left TLC - Respiratory Exam Respiratory Exam: Decreased Breath Sounds Additional comments: +ventilatory breath sounds - Cardiovascular Exam Cardiovascular Exam: REGULAR RHYTHM, +S1, +S2 - GI/Abdominal Exam GI & Abdominal Exam: Soft. absent: Guarding, Rigid, Tenderness - Extremities Exam Additional comments: +SCDs - Neurological Exam Neurological Exam: absent: Alert, Awake, Oriented x3 - Skin Skin Exam: Dry, Normal Color, Warm Assessment and Plan - Assessment and Plan (Free Text) Assessment: A/P: Patient is a 72 yo AA F with PMH of COPD (with prior intubations for exacerbations), asthma, HTN, and pulmonary HTN who presented to [facility] with worsening shortness of breath, found to be in hypercarbic respiratory failure, failing Bipap in ED, then intubated and placed on mechanical ventilation. She is s/p extubation. Patient was re-intubated 2/2 to respiratory acidosis and hypercarbia. Intubated and sedated at this time. Plan: Acute exacerbation of COPD with Acute Hypoxic respiratory failure with hypercapnia -Intubated and sedated on Versed -ABG yesterday showed respiratory acidosis with severe hypercarbia -CT head showed non specific white matter changes (see full report) -CT chest showed bibasilar atelectasis, possible left lung infiltrate, superimposed pneumonia cannot be excluded (see full report) -Solucortef 50mg IVP Q6H -Xopenex and Ipratroprium Q6H [facility], Q2H PRN SOB -Budesanide 1mg Q12H [facility] -Pulmonary on consult, help appreciated -ENT on consult, for possible tracheostomy, help appreciated Severe Sepsis 2/2 HCAP -Intubated and Sedated -Leukocytosis improving -Antibiotics: Doxycycline 100mg Q12, Vancomycin 1gm Q12H, Cefepime 2gm Q8H -F/U blood cultures, urine cultures, sputum cultures, procal -ID on consult, help appreciated Altered Mental Status -Patient with intermittent periods of confusion, yesterday -Now intubated and sedated -Likely due to Toxic metabolic encephalopathy 2/2 chronic CO2 retention -Head CT showed non specific white matter changes (see full report) -Neurology on consult, help appreciated -MRI of brain ordered Elevated Blood Pressures -Patient became hypotensive yesterday -Started on Vasopressin and Levophed -Continue to monitor Relapsing recurrent hypercarbia and respiratory acidosis -Intubated and sedated -ABG reviewed this morning -Continue to Monitor daily ABGs -Pulmonary on consult, help appreciated Elevated Troponin -Troponin 0.30, will trend -Concern for possible NSTEMI -Cardiology on consult, help appreciated Diastolic CHF, Moderate Mitral Regurgitation -Echo showed normal LVEF with Moderate Mitral Regurgitation -Cardiology consulted, help appreciated -Continue ASA and Lipitor Transaminitis -LFTs trending down, Hep panel negative -AST/ALT: 32/72 -Will continue to monitor Hypokalemia -Continue to monitor Hypothyroidism -Continue Synthroid 50mcg daily Vitamin D Deficiency -Continue Ergocalciferol 1 tab PO Q7D GI/DVT ppx -Protonix 40mg Q12 IVP -Lovenox 40 SC daily Plan discussed with Dr Marcos Sandoval DO PGY-1 <Garett Rodríguez U - Last Filed: 12/29/17 17:39> Objective - Vital Signs/Intake and Output Vital Signs (last 24 hours): Temp Pulse Resp BP Pulse Ox 98.2 F 87 24 103/60 97 12/29/17 04:00 12/29/17 16:00 12/28/17 07:20 12/29/17 16:00 12/29/17 16:00 Intake and Output: 12/29/17 12/29/17 06:59 18:59 Intake Total 995 Output Total 350 Balance 645 - Medications Medications: Current Medications Acetaminophen (Tylenol 650 Mg Supp) 650 mg RC Q6H PRN PRN Reason: TEMP>=99.5F Last Admin: 12/17/17 08:30 Dose: 650 mg Amiodarone HCl (Cordarone) 200 mg PO Q12 [facility] Last Admin: 12/29/17 09:35 Dose: 200 mg Aspirin (Aspirin) 325 mg PO DAILY [facility] Last Admin: 12/29/17 09:37 Dose: 325 mg Atorvastatin Calcium (Lipitor) 10 mg PO DIN [facility] Last Admin: 12/28/17 17:23 Dose: 10 mg Budesonide (Pulmicort Respules) 1 mg IH [id number] [facility] Last Admin: 12/29/17 07:40 Dose: 1 mg Doxycycline Hyclate (Doryx) 100 mg PO Q12 [facility] Last Admin: 12/29/17 09:36 Dose: 100 mg Enoxaparin Sodium (Lovenox) 40 mg SC DAILY [facility] PRN Reason: Protocol Last Admin: 12/29/17 09:34 Dose: 40 mg Ergocalciferol (Drisdol 50,000 Intl Units Cap) 1 cap PO Q7D [facility] Last Admin: 12/27/17 10:03 Dose: Not Given Hydralazine HCl (Apresoline) 10 mg IVP Q6 PRN PRN Reason: Systolic Blood Pressure Last Admin: 12/23/17 14:30 Dose: 10 mg Hydrocortisone Sodium Succinate (Solu-Cortef) 25 mg IVP DAILY [facility] Last Admin: 12/29/17 09:34 Dose: 25 mg Propofol (Diprivan) 1,000 mg in 100 mls @ 2.252 mls/hr IV .Q24H PRN; Protocol; 5 MCG/KG/MIN PRN Reason: TITRATE PER MD ORDER Last Admin: 12/28/17 03:19 Dose: 22.2 mcg/kg/min, 10 mls/hr Potassium Phosphate 15 mmole/ (Dextrose) 255 mls @ 42.5 mls/hr IVPB Q6H [facility] Stop: 12/29/17 19:59 Last Admin: 12/29/17 16:14 Dose: 42.5 mls/hr Ipratropium Broadbent (Atrovent) 0.5 mg IH [id number] [facility] Last Admin: 12/29/17 14:02 Dose: 0.5 mg Ipratropium Broadbent (Atrovent) 0.5 mg IH Q2H PRN PRN Reason: Shortness of Breath Levalbuterol HCl (Xopenex) 0.63 mg IH Q2 PRN PRN Reason: Shortness of Breath Levalbuterol HCl (Xopenex) 0.63 mg IH 0200,0800,1400,2000 [facility] Last Admin: 12/29/17 14:07 Dose: 0.63 mg Ondansetron HCl (Zofran Inj) 4 mg IVP Q4H PRN PRN Reason: Nausea/Vomiting Pantoprazole Sodium (Protonix Inj) 40 mg IVP Q12 [facility] Last Admin: 12/29/17 09:34 Dose: 40 mg Polyethylene Glycol (Miralax) 17 gm PO DAILY [facility] Last Admin: 12/29/17 09:37 Dose: 17 gm - Labs Labs: 12/29/17 06:25 12/29/17 06:25 PT 12.2 SECONDS (9.4-12.5) 12/29/17 06:25 INR 1.06 (0.93-1.08) 12/29/17 06:25 APTT 27.8 Seconds (25.1-36.5) 12/29/17 06:25 Attending/Attestation - Attestation I have personally seen and examined this patient.: Yes I have fully participated in the care of the patient.: Yes I have reviewed all pertinent clinical information, including history, physical exam and plan: Yes Notes (Text): Please see/read my dictated notes.
[2017-12-24 08:19] LABS: ALB/GLOB RATIO 1.3 (1.1-1.8); ALBUMIN 3.3 g/dL (3.0-4.8); ALT/SGPT 72 U/L (7-56); AST/SGOT 32 U/L (14-36); BILIRUBIN,DIRECT 0.2 mg/dL (0.0-0.4); BLOOD UREA NITROGEN 15 mg/dL (7-21); CALCIUM 8.1 mg/dL (8.4-10.5); GFR AFRICAN-AMERICAN > 60; GFR NON-AFRICAN AMERICAN > 60
--- NOTE | 2017-12-24 09:07 | PN ---
DATE: 12/23/2017 PULMONARY PROGRESS NOTE SUBJECTIVE: The patient was seen and examined in Intensive Care Unit. She is currently on nasal cannula. She just came off BiPAP. PHYSICAL EXAMINATION VITAL SIGNS: Her temperature is 98.6, pulse is 90, respirations 22, blood pressure is 160/100. HEAD: Normocephalic and atraumatic. NECK: Supple with no jugular vein distentions. CARDIOVASCULAR: S1 and S2, II/ systolic ejection murmur, irregular. PULMONARY: Diminished breath sounds bilaterally with diffuse end-expiratory wheezes and few rhonchi. GASTROINTESTINAL: Soft, nontender with no organomegaly. EXTREMITIES: No pedal edema. No cyanosis. NEUROLOGIC: Limited at the present time. LABORATORY DATA: I reviewed today's laboratory data. Her arterial blood gas shows pH of 7.4, pCO2 of 80 and pO2 of 51. Sodium 143, potassium 4.2. WBC is 5.1, hemoglobin of 13.9. ASSESSMENT: 1. Exacerbation of chronic obstructive pulmonary disease and chronic respiratory insufficiency status post respiratory failure. 2. Compensated severe respiratory acidosis. 3. CO2 retention. 4. Intensive care unit versus steroid-induced confusion. PLAN: The patient is still significantly retaining CO2. She needs to be on BiPAP all night and many hours during the day. Her pulmonary status is still tenuous. We will continue with maximum bronchodilator therapy. Antibiotics are being administered as well. Added problem of ICU confusion with signs of psychosis, the patient needs to be observed very carefully for development in that area as well. Remy Peacock MD
[2017-12-24] MEDS: Enoxaparin 40 mg Syringe SC SCH (09:46)
[2017-12-24] MEDS: Cefepime IV 2 gm in NS 2 GM/100 ML BAG IVPB SCH ×3 (09:46→21:51)
[2017-12-24] MEDS: POLYETHYLENE GLYCOL 3350 17 GM/Dose PACKET PO SCH (09:47)
--- NOTE | 2017-12-24 10:26 | RAD ---
HISTORY: intubated COMPARISON: 12/23/2017 FINDINGS: LUNGS: No active pulmonary disease. PLEURA: No significant pleural effusion identified, no pneumothorax apparent. CARDIOVASCULAR: Mild cardiomegaly OSSEOUS STRUCTURES: No significant abnormalities. VISUALIZED UPPER ABDOMEN: Normal. OTHER FINDINGS: Central lines and tubes unchanged IMPRESSION: No active disease.
--- NOTE | 2017-12-24 10:32 | CARD ---
APPROVED REPORT EKG Measurement Heart [id number] <Conclusion> Normal sinus rhythm PRWP Left ventricular hypertrophy with repolarization abnormality Prolonged QT T waves V 2,3 now upright c/w ECG 12/18/17
--- NOTE | 2017-12-24 10:47 | CP.PCM.CON ---
History of Present Illness - History of Present Illness History of Present Illness: 72 year old female with PMH of COPD, diastolic chronic CHF, S/P hysterectomy, obesity with BMI 31 came in [place] [facility] of shortness of breath and non-productive cough and was being treated for acute COPD exacerbation. She was on steroids, bronchodilators and antibiotics and was starting to do well, but then developed worsening respiratory distress over the last 2 days, ending up with need for intubated and mechanical ventilation which was started yesterday. CT scan of the chest was done and it is showing bibasilar atelectasis with concern for developing patchy infiltrates on the left base. There was no note of fevers, no vomiting, no convulsions, no diarrhea. Full ROS is unobtainable because the patient is currently intubated. Infectious diseases consult is requested to further evaluate and manage. Review of Systems - Review of Systems Systems not reviewed;Unavailable: Intubated Past Patient History - Infectious Disease Hx of Infectious Diseases: None - Tetanus Immunizations Tetanus Immunization: Unknown - Past Social History Smoking Status: Former Smoker - CARDIAC Hx Hypertension: Yes - PULMONARY Hx Asthma: Yes Hx Chronic Obstructive Pulmonary Disease (COPD): Yes - NEUROLOGICAL Hx Neurological Disorder: Yes (Concussion) - HEENT Hx HEENT Problems: No - RENAL Hx Chronic Kidney Disease: No - ENDOCRINE/METABOLIC Hx Hypothyroidism: Yes - HEMATOLOGICAL/ONCOLOGICAL Hx Blood Disorders: No - INTEGUMENTARY Hx Dermatological Problems: No - MUSCULOSKELETAL/RHEUMATOLOGICAL Hx Falls: Yes (past) - GASTROINTESTINAL Hx Gastrointestinal Disorders: Yes Hx Gastroesophageal Reflux: Yes - GENITOURINARY/GYNECOLOGICAL Hx Genitourinary Disorders: No - PSYCHIATRIC Hx Psychophysiologic Disorder: No Hx Substance Use: No - SURGICAL HISTORY Hx Hysterectomy: Yes - ANESTHESIA Hx Anesthesia: Yes Hx Anesthesia Reactions: No Hx Malignant Hyperthermia: No Meds Allergies/Adverse Reactions: Allergies Allergy/AdvReac Type Severity Reaction Status Date / Time peanut Allergy ANAPHYLAXIS Verified 12/16/17 12:25 - Medications Medications: Current Medications Acetaminophen (Tylenol 650 Mg Supp) 650 mg RC Q6H PRN PRN Reason: TEMP>=99.5F Last Admin: 12/17/17 08:30 Dose: 650 mg Aspirin (Aspirin) 325 mg PO DAILY [facility] Last Admin: 12/23/17 09:07 Dose: 325 mg Atorvastatin Calcium (Lipitor) 10 mg PO DIN [facility] Last Admin: 12/23/17 17:43 Dose: Not Given Budesonide (Pulmicort Respules) 1 mg IH [id number] [facility] Last Admin: 12/24/17 07:43 Dose: 0.5 mg Doxycycline Hyclate (Doryx) 100 mg PO Q12 [facility] Last Admin: 12/23/17 09:07 Dose: 100 mg Enoxaparin Sodium (Lovenox) 40 mg SC DAILY [facility] PRN Reason: Protocol Last Admin: 12/23/17 09:07 Dose: 40 mg Ergocalciferol (Drisdol 50,000 Intl Units Cap) 1 cap PO Q7D [facility] Last Admin: 12/20/17 10:07 Dose: 1 cap Hydralazine HCl (Apresoline) 10 mg IVP Q6 PRN PRN Reason: Systolic Blood Pressure Last Admin: 12/23/17 14:30 Dose: 10 mg Hydrocortisone Sodium Succinate (Solu-Cortef) 50 mg IVP Q6 [facility] Last Admin: 12/24/17 05:45 Dose: 50 mg Midazolam 100 mg/100ml in NS (Midazolam 100 Mg/100ml In Ns) 100 mg in 100 mls @ 1 mls/hr IV .Q24H PRN; Protocol; 1 MG/HR PRN Reason: Sedation Last Titration: 12/23/17 17:30 Dose: 2 mg/hr, 2 mls/hr Cefepime HCl (Maxipime 1gm) 1 gm in 100 mls @ 100 mls/hr IVPB Q24H [facility] PRN Reason: Protocol Last Admin: 12/23/17 17:55 Dose: 100 mls/hr NOREPINEPHRINE BIT/0.9 % NACL (Levophed 4 Mg/ 250 Ml Ns Premixed) 4 mg in 250 mls @ 15 mls/hr IV .[id number] PRN; Protocol; 4 MCG/MIN PRN Reason: TITRATE PER MD ORDER Last Titration: 12/24/17 07:38 Dose: 0 mcg/min, 0 mls/hr Sodium Chloride (Sodium Chloride 0.9%) 1,000 mls @ 80 mls/hr IV .[id number] [facility] Last Admin: 12/24/17 05:43 Dose: 80 mls/hr Vasopressin 20 units/ Dextrose 101 mls @ 9.09 mls/hr IV .[id number] [facility]; 0.03 U/MIN PRN Reason: Protocol Last Admin: 12/24/17 05:51 Dose: 9.09 mls/hr Acetaminophen (Ofirmev) 1,000 mg in 100 mls @ 400 mls/hr IVPB Q6H PRN PRN Reason: fever >100.4 Stop: 12/26/17 03:53 Last Admin: 12/24/17 04:17 Dose: 400 mls/hr Potassium Chloride (Potassium Chloride 20 Meq/100 Ml) 20 meq in 100 mls @ 50 mls/hr IVPB ONCE ONE Stop: 12/24/17 10:50 Vancomycin HCl (Vancomycin 1gm) 1 gm in 250 mls @ 167 mls/hr IVPB Q12 [facility] PRN Reason: Protocol Cefepime HCl (Maxipime 2gm) 2 gm in 100 mls @ 100 mls/hr IVPB Q8 [facility] PRN Reason: Protocol Stop: 12/29/17 09:16 Ipratropium [place] (Atrovent) 0.5 mg IH [id number] [facility] Last Admin: 12/24/17 07:42 Dose: 0.5 mg Ipratropium [place] (Atrovent) 0.5 mg IH Q2H PRN PRN Reason: Shortness of Breath Levalbuterol HCl (Xopenex) 0.63 mg IH Q2 PRN PRN Reason: Shortness of Breath Levalbuterol HCl (Xopenex) 0.63 mg IH 0200,0800,1400,2000 [facility] Last Admin: 12/24/17 07:43 Dose: 0.63 mg Ondansetron HCl (Zofran Inj) 4 mg IVP Q4H PRN PRN Reason: Nausea/Vomiting Pantoprazole Sodium (Protonix Inj) 40 mg IVP Q12 [facility] Polyethylene Glycol (Miralax) 17 gm PO DAILY [facility] Last Admin: 12/23/17 09:07 Dose: 17 gm Physical Exam - Constitutional Appears: Other (intubated, sedated) - Head Exam Head Exam: NORMAL INSPECTION - ENT Exam Additional comments: ET tube in place - Neck Exam Additional comments: left IJ TLC in place - Respiratory Exam Respiratory Exam: Decreased Breath Sounds, Rhonchi (scattered) - Cardiovascular Exam Cardiovascular Exam: +S1, +S2 - GI/Abdominal Exam GI & Abdominal Exam: Soft. absent: Tenderness Results - Vital Signs Recent Vital Signs: Last Vital Signs Temp 99.7 F H 12/23/17 20:45 Pulse 94 H 12/23/17 22:00 Resp 46 H 12/23/17 05:05 BP 111/70 12/23/17 20:45 Pulse Ox 100 12/23/17 20:45 - Labs Result Diagrams: 12/24/17 06:50 12/24/17 06:50 Labs: Laboratory Results - last 24 hr 12/23/17 12/23/17 12/23/17 11:24 15:01 17:00 WBC RBC Hgb Hct MCV MCH MCHC RDW Plt Count MPV Gran % Lymph % (Auto) [place] % (Auto) Eos % (Auto) Baso % (Auto) Gran # Lymph # (Auto) [place] # (Auto) Eos # (Auto) Baso # (Auto) pCO2 > 150 H* 44 pO2 36.0 L* 113.0 H HCO3 TEST NOT PERFORMED 27.3 ABG pH 7.12 L* 7.40 ABG Total CO2 TEST NOT PERFORMED 28.7 H ABG O2 Saturation 64.6 L 99.9 H ABG O2 Content 11.9 L ABG Base Excess TEST NOT PERFORMED 2.0 ABG Hemoglobin 13.5 ABG Carboxyhemoglobin 2.0 H POC ABG HHb (Measured) 34.3 H ABG Methemoglobin 0.9 ABG O2 Capacity 18.4 ABG Potassium 3.0 L Hgb O2 Saturation 62.7 L Sodium 141.0 Chloride 111.0 H Glucose 143 H Lactate 1.8 Mechanical Rate 20 FiO2 40.0 40.0 Tidal Volume 350 PEEP 5 Potassium Carbon Dioxide Anion Gap BUN Creatinine Est GFR ( Amer) Est GFR (Non-Af Amer) POC Glucose (mg/dL) 127 H Random Glucose Calcium Magnesium Total Bilirubin Direct Bilirubin AST ALT Alkaline Phosphatase Troponin I Total Protein Albumin Globulin Albumin/Globulin Ratio Procalcitonin Arterial Blood Potassium 3.0 L 12/23/17 12/23/17 12/23/17 18:01 18:15 18:15 WBC RBC Hgb Hct MCV MCH MCHC RDW Plt Count MPV Gran % Lymph % (Auto) [place] % (Auto) Eos % (Auto) Baso % (Auto) Gran # Lymph # (Auto) [place] # (Auto) Eos # (Auto) Baso # (Auto) pCO2 pO2 HCO3 ABG pH ABG Total CO2 ABG O2 Saturation ABG O2 Content ABG Base Excess ABG Hemoglobin ABG Carboxyhemoglobin POC ABG HHb (Measured) ABG Methemoglobin ABG O2 Capacity ABG Potassium Hgb O2 Saturation Sodium 143 Chloride 100 Glucose Lactate Mechanical Rate FiO2 Tidal Volume PEEP Potassium 3.5 L Carbon Dioxide 34 H Anion Gap 12 BUN 19 Creatinine 0.4 L Est GFR ( Amer) > 60 Est GFR (Non-Af Amer) > 60 POC Glucose (mg/dL) 147 H Random Glucose 128 H Calcium 7.2 L Magnesium Total Bilirubin 0.4 Direct Bilirubin AST 23 ALT 76 H Alkaline Phosphatase 52 Troponin I < 0.01 D Total Protein 5.1 L Albumin 2.8 L Globulin 2.3 Albumin/Globulin Ratio 1.2 Procalcitonin 0.07 L Arterial Blood Potassium 12/23/17 12/23/17 12/24/17 19:15 23:55 05:00 WBC 12.8 H D RBC 4.03 Hgb 11.8 L D Hct 37.7 MCV 93.5 MCH 29.3 MCHC 31.3 RDW 13.5 Plt Count 205 MPV 11.0 Gran % 82.4 H Lymph % (Auto) 12.2 L [place] % (Auto) 5.4 Eos % (Auto) 0.0 L Baso % (Auto) 0.0 Gran # 10.54 H Lymph # (Auto) 1.6 [place] # (Auto) 0.7 H Eos # (Auto) 0.0 Baso # (Auto) 0.00 pCO2 34 L pO2 95.0 HCO3 30.4 H ABG pH 7.56 H ABG Total CO2 31.4 H ABG O2 Saturation 99.8 H ABG O2 Content 15.4 ABG Base Excess 7.9 H ABG Hemoglobin 11.2 L ABG Carboxyhemoglobin 1.6 H POC ABG HHb (Measured) 0.2 ABG Methemoglobin 0.9 ABG O2 Capacity 15.4 L ABG Potassium Hgb O2 Saturation 97.3 Sodium Chloride Glucose Lactate Mechanical Rate FiO2 40.0 Tidal Volume PEEP Potassium Carbon Dioxide Anion Gap BUN Creatinine Est GFR ( Amer) Est GFR (Non-Af Amer) POC Glucose (mg/dL) 94 Random Glucose Calcium Magnesium Total Bilirubin Direct Bilirubin AST ALT Alkaline Phosphatase Troponin I Total Protein Albumin Globulin Albumin/Globulin Ratio Procalcitonin Arterial Blood Potassium 12/24/17 12/24/1712/24/18 06:11 06:50 06:50 WBC 5.8 D RBC 4.04 Hgb 11.8 L Hct 36.8 MCV 91.1 MCH 29.2 MCHC 32.1 RDW 13.5 Plt Count 146 MPV 11.0 Gran % 84.1 H Lymph % (Auto) 10.2 L [place] % (Auto) 5.7 Eos % (Auto) 0.0 L Baso % (Auto) 0.0 Gran # 4.89 Lymph # (Auto) 0.6 L [place] # (Auto) 0.3 Eos # (Auto) 0.0 Baso # (Auto) 0.00 pCO2 pO2 HCO3 ABG pH ABG Total CO2 ABG O2 Saturation ABG O2 Content ABG Base Excess ABG Hemoglobin ABG Carboxyhemoglobin POC ABG HHb (Measured) ABG Methemoglobin ABG O2 Capacity ABG Potassium Hgb O2 Saturation Sodium 139 Chloride 99 Glucose Lactate Mechanical Rate FiO2 Tidal Volume PEEP Potassium 3.4 L Carbon Dioxide 32 Anion Gap 12 BUN 15 Creatinine 0.5 L Est GFR ( Amer) > 60 Est GFR (Non-Af Amer) > 60 POC Glucose (mg/dL) 79 Random Glucose 92 Calcium 8.1 L Magnesium 1.8 Total Bilirubin 0.8 Direct Bilirubin 0.2 AST 32 ALT 72 H Alkaline Phosphatase 56 Troponin I Total Protein 5.9 Albumin 3.3 Globulin 2.5 Albumin/Globulin Ratio 1.3 Procalcitonin Arterial Blood Potassium Assessment & Plan - Assessment and Plan (Free Text) Plan: Assessment Severe sepsis with ventilator-dependent respiratory failure due to left sided hospital-acquired pneumonia in this patient with acute COPD exacerbation COPD diastolic chronic CHF S/P hysterectomy obesity with BMI 31 Plan Started the patient on Vancomycin, Cefepime and Doxycycline and will follow up blood and sputum cx; reviewed CT chest which shows left base patchy infiltrates ; also reviewed Pulmonary evaluation and recommendations will monitor clinically discussed with family
[2017-12-24] MEDS: Vancomycin 1gm in NS 250ml 1 GM/250 ML BAG IVPB SCH ×2 (11:00→21:51)
--- NOTE | 2017-12-24 13:43 | PN ---
DATE: 12/24/2017 SUBJECTIVE: The patient is seen in room CCU bed 3. Overnight events were noted. last 24-hour events were noted. The patient developed more hypercarbia, respiratory acidosis, confusion, on obtundation. The patient required intubation and mechanical ventilation and respiratory support and the patient also became hypotensive for which the patient required central line placement and initiation of pressors and inotropes. The patient at present is intubated on a vent with the patient's family, the daughter and the son are at bedside. The patient is sedated on the vent. PHYSICAL EXAMINATION: VITAL SIGNS: T-max 97.8, 96.6-99.1, 98.8. Telemetry shows sinus rhythm, heart rate is sinus rhythm in the 90s. The last recorded blood pressures 111/70 from 12/23/2017 at 2045. I am unable to find any blood pressure readings after that. Respiratory rate is 30s, 40s, 45, 42. O2 sat on the ventilator is 100%. Intake, output are noted. Output today is only 1800. Yesterday's intake was 4729, output 650. HEENT: Head examination normocephalic, atraumatic. HEENT examination shows positive ET tube, positive NG tube noted. The patient is sedated. HEENT examination shows pink conjunctivae, anicteric sclerae. No oropharyngeal lesion. No jugular venous distention. Positive left-sided left internal jugular central line and triple-lumen catheter noted. CHEST: Kyphosis. LUNGS: Shows positive rhonchi bilaterally, right more than the left. Questionable decreased breath sound at the left base. CARDIOVASCULAR: S1, S2, regular rhythm. Questionable soft systolic murmur, left sternal border, left second intercostal space, right second intercostal space. ABDOMEN: Soft. Positive bowel sound. GENITALIA: Female. RECTAL: Deferred. EXTREMITY: Shows positive SCDs and ADRIANNA stockings. MUSCULOSKELETAL: Shows a body mass index of 31. NEUROLOGICAL: Limited as the patient is sedated. DIAGNOSTICS: On 12/24/2017, WBC 5.8, hemoglobin and hematocrit 11.8 and 36.8, platelet 146. Granulocytes 84% segs. ABG from yesterday pre intubation and post intubation was reviewed. Yesterday's pre intubation, the patient's ABG shows a pH down to 7.12, pCO2 greater than 150, pO2 of 36. After intubation, the patient's ABG with PEEP of 5, 350 tidal volume and FiO2 of 40% and a assist control of 20, pH was 7.40, pCO2 of 44 dropping from 150 and pO2 going up to 113 from the 36 and bicarb 27, saturation 99.9%. This morning, ABG on 40% FiO2, pH of 7.56, pCO2 of 34, pO2 of 95, bicarb 31, saturation of 99.8 noted. Sodium is 139, potassium is 3.4, chloride 99, CO2 of 32, anion gap 12, BUN 15, creatinine 0.5, GFR greater than 60, glucose 79 and 92, calcium 8.1, magnesium 1.8. LFTs are negative. Troponin has bumped to 0.30. Procalcitonin level is 0.07. Troponin has bumped up to 0.30. Hepatitis A, B, C serologies are negative. Microbiology: Blood, urine cultures are negative. Chest x-ray shows ET tube in place. CT of the chest shows left lower lobe pneumonia and right lower lobe pneumonia. EKG shows sinus rhythm, left ventricular hypertrophy. IMPRESSION AND PLAN: 1. Recurrent acute relapsing hypoxic hypercarbic hypercapnic respiratory failure, ventilator requiring and ventilator-dependent. 2. Ventilator-dependent and ventilator-requiring hypoxic and hypercarbic respiratory failure with carbon dioxide narcosis and hypoxemia and confusion and obtundation. 3. Hypotension. 4. Transient uncontrolled hypertension and hypertensive urgency. 5. Leukocytosis with granulocytosis. 6. Normocytic anemia. 7. Severe respiratory acidosis. 8. Ventilator-dependent respiratory failure. 9. Hypokalemia. 10. Questionable acute [id number] myocardial infarction with elevated troponin. 11. Transaminitis. 12. Healthcare-associated, ventilator-dependent multilobar bilateral pneumonia with volume loss and minimal right apical scarring. 13. Right upper lobe nodule. 14. Cardiomegaly. 15. Thyromegaly with thyroid calcification. 16. Degenerative joint disease of the spine. 17. T11-T12 subacute compression deformity. 18. Left lower chest and left upper anterior abdominal wall lipoma. 19. Adrenal gland hypertrophy. 20. Feeding dysfunction. 21. Status post left internal jugular triple-lumen catheter central line placement. 22. Questionable lateral ischemic changes on the EKG with left ventricular hypertrophy. 23. Severe sepsis with ventilator-dependent respiratory failure secondary to bilateral multilobar healthcare-associated versus ventilator-dependent pneumonia. 24. Acute exacerbation of chronic obstructive pulmonary disease. 25. Hypovitaminosis D. 26. Dyslipidemia. 27. History of constipation. 1. Questionable and possible steroid versus ICU psychosis with episodic confusion. 2. Acute exacerbation of chronic obstructive pulmonary disease. 3. Status post ventilator-dependent acute hypoxic hypercarbic respiratory failure. 4. Severe respiratory acidosis. 5. Uncontrolled hypertension. 6. Transient tachycardia. 7. Tachypnea. 8. Hypoxemia. 9. Transient leukopenia. 10. Granulocytosis. 11. Severe respiratory acidosis with hypercarbia, hypercapnia and CO2 narcosis with hypoxemia. 12. Refractory acute exacerbation of [id number] hypoxic hypercarbic respiratory failure with refractory slow resolving respiratory acidosis. 13. Metabolic alkalosis. 14. Steroid-induced hyperglycemia. 15. Transaminitis. 16. Hypovitaminosis D. 17. Acute exacerbation of chronic obstructive pulmonary disease with hyperinflation. 18. Questionable and possible ICU versus steroid psychosis. 1. Status post ventilator-dependent respiratory failure secondary to acute hypoxic hypercarbic respiratory failure with respiratory acidosis. 2. Acute exacerbation of chronic obstructive pulmonary disease. 3. Recurrent [id number] hypoxic hypercarbic respiratory failure with persistent hypercarbia and hypoxemia and respiratory acidosis. 4. Tachycardia. 5. Uncontrolled hypertension. 6. Tachypnea. 7. Hypoxemia. 8. Leukopenia. 9. Granulocytosis. 10. Persistent recurrent [id number] and acute recurrent hypoxic hypercarbic respiratory failure with respiratory acidosis. 11. Metabolic alkalosis. 12. Hyperglycemia. 13. Transaminitis. 14. Hypovitaminosis D. 15. Non-hemolyzed hyperkalemia. 16. Constipation. 17. Hypothyroidism. 18. Mild oropharyngeal dysphagia with [id number] aspiration risk secondary to minimal fatigue, minimal oral residue and missing teeth. 1. Acute exacerbation of chronic obstructive pulmonary disease. 2. Relapsing recurrent hypercarbia and respiratory acidosis. 3. Mild normocytic anemia with granulocytosis. 4. Non-hemolyzed hyperkalemia. 5. Metabolic alkalosis with rising pCO2. 6. Hyperglycemia. 7. Transaminitis. 8. Hypovitaminosis D. 9. Chronic obstructive pulmonary disease with pulmonary hyperinflation. 10. Left ventricular hypertrophy with repolarization abnormalities and possible anterior ischemic changes on the EKG. 11. Status post ventilator dependent. 12. Acute hypoxic hypercarbic respiratory failure with respiratory acidosis. 13. Acute exacerbation of chronic obstructive pulmonary disease with acute hypoxic respiratory failure with hypercapnia. 14. Acute exacerbation of chronic obstructive pulmonary disease with acute ventilator respiratory failure with hypercapnia. 15. Hypertensive cardiovascular disease with ejection fraction of 68%. 16. Concentric left ventricular hypertrophy with grade I abnormal relaxation patterns. 17. Moderately sclerotic aortic valve. 18. Moderate mitral regurgitation with moderately thickened mitral valve. 19. Trace tricuspid regurgitation. 1. Acute ventilator-dependent acute hypercarbic, hypoxemic respiratory failure and carbon dioxide narcosis. 2. Hypertension. 3. Persistent recurrent, refractor hypercarbia and mild respiratory acidosis. 4. Tachypnea. 5. Hypertension. 6. Mild normocytic anemia. 7. Granulocytosis. 8. Mild non-hemolyzed hyperkalemia. 9. Prerenal kidney injury. 10. Hyperglycemia. 11. Transaminitis. 12. Hypovitaminosis D. 13. Left ventricular ejection fraction of 68% with concentric left ventricular hypertrophy and grade 1 abnormal relaxation pattern. 14. Moderately dilated left atrium. 15. Moderately sclerotic aortic valve. 16. Moderately thickened mitral valve with moderate mitral regurgitation. 17. Hyperlipidemia. 18. Constipation. 1. Acute hypercarbic hypoxic respiratory failure with respiratory acidosis and hypercarbia and carbon dioxide narcosis. 2. Acute exacerbation of chronic obstructive pulmonary disease. 3. Acute ventilator-dependent hypercarbic hypercapnic hypoxic respiratory failure with severe respiratory acidosis. 4. Bronchospasm. 5. Severe acute exacerbation of chronic obstructive pulmonary disease. 6. Tachycardia. 7. Tachypnea. 8. Fever. 9. Febrile illness. 10. Questionable systemic inflammatory response syndrome. 11. Mild normocytic anemia. 12. Granulocytosis. 13. Recurrent hypercarbia and hypercapnia with mild respiratory acidosis and recurrent respiratory acidosis. 14. Prerenal kidney injury. 15. Transaminitis. 16. Hypovitaminosis D. 17. History of hypothyroidism. 18. Left ventricular ejection fraction of 68%. 19. Moderate concentric left ventricular hypertrophy. 20. Grade 1 abnormal relaxation pattern. 21. Moderately dilated left atrium. 22. Moderately sclerotic aortic valve. 23. Moderately thickened mitral valve with moderate mitral regurgitation. 24. Mild oropharyngeal dysphagia with low to moderate risk for aspiration due to minimal fatigue, minimal oral residue, missing teeth and multiple swallows. 25. History of hyperlipidemia. 1. Status post acute ventilator dependent hypercarbic hypoxic respiratory failure with carbon dioxide narcosis and respiratory acidosis. 2. Status post extubation. 3. Hypertension. 4. Mild normocytic anemia with granulocytosis. 5. Acute hypercarbic hypoxic ventilator-dependent respiratory failure, status post extubation with respiratory acidosis, hypercarbia and carbon dioxide narcosis. 6. Prerenal kidney injury. 7. Transaminitis. 8. Hypovitaminosis D. 9. Hypertensive cardiovascular disease with repolarization abnormalities. 10. Left ventricular ejection fraction of 68%. 11. Moderate concentric left ventricular hypertrophy with grade 1 abnormal relaxation pattern. 12. Moderately dilated left atrium. 13. Moderately sclerotic aortic valve. 14. Moderately thickened mitral valve with moderate mitral regurgitation. 15. Trace tricuspid regurgitation. 16. Carbon dioxide narcosis. 17. Acute exacerbation of severe chronic obstructive pulmonary disease. 18. History of hypothyroidism. 19. History of pulmonary hypertension. 20. High-grade fever of 101 degrees Fahrenheit. 21. Deconditioning. 22. Gait dysfunction. 23. History o hyperlipidemia. 24. History of constipation. 25. History of hypovitaminosis D. 1. Acute hypercarbic hypercapnic hypoxic ventilator-dependent respiratory failure with severe respiratory acidosis. 2. Resolving bronchospasm. 3. Fever of 100.8. 4. Mild normocytic anemia. 5. Granulocytosis. 6. Hypercarbia. 7. CO2 narcosis. 8. Transaminitis. 9. History of hypothyroidism. 10. Hypertensive cardiovascular disease with T-wave inversion I, aVL, V1 to V6. 11. Borderline hypokalemia. 1. Ventilator-dependent acute hypercarbic hypercapnic hypoxic respiratory failure with severe respiratory acidosis. 2. Bronchospasm. 3. Acute exacerbation of chronic obstructive pulmonary disease. 4. Normocytic anemia with granulocytosis. 5. Hypercarbia and hypercapnia. 6. Carbon dioxide narcosis. 7. Severe respiratory acidosis and hypoxemia. 8. Metabolic alkalosis. 9. Hyperglycemia. 10. Transaminitis. 11. Mild acute exacerbation of right-sided diastolic congestive heart failure with elevated BNP. 12. Indeterminate troponin. 13. Sinus tachycardia. 14. Left axis deviation. 15. Ventilator-dependent respiratory failure. 16. History of hypertension, hyperlipidemia, hypothyroidism, hypovitaminosis D. 17.Mild oropharyngeal dysphagia with [id number] risk for aspiration due to minimal fatigue, minimal oral residue, missing teeth and multiple swallows needed per single bolus Plan at this time, the patient is to be maintained on the above therapeutic intervention with current management. Serial labs, serial ABGs ordered. Blood cultures have been ordered. Sputum and urine cultures ordered. The results are pending. CURRENT MEDICATIONS: The patient is on IV acetaminophen every 6 hours. The patient is on p.r.n. hydralazine 10 mg IV every 6, aspirin 325 daily, Atrovent 0.5 nebulizer every 6 hours and every 2 hours p.r.n. The patient is on doxycycline 100 mg p.o. every 12, Drisdol 50,000 weekly, Lipitor 10 mg daily, Lovenox 40 mg subcu daily, Maxipime 2 g IV every 8, MiraLax 17 g daily, Levophed drip is maintained at 4 mcg/kg. The patient is supplemented with a potassium x1 dose, Protonix 40 IV every 12, Pulmicort nebulizer 1 mg every 12. The patient yesterday received multiple IV fluid boluses for treatment of hypotension. The patient is now on Solu-Cortef 50 mg IV every 6, Tylenol suppository every 6 p.r.n. The patient was started on vancomycin 1 g IV every 12 by the Infectious Disease. The patient is continued on cefepime 2 g IV every 8 by Infectious Disease. The patient is to be continued on doxycycline 100 every 12. The patient is on vasopressin. The patient is on Xopenex nebulizer every 6 hours [id number] every 2 hours p.r.n., Zofran 4 mg IV every 4 p.r.n. Followup chest x-ray has been ordered. The patient was seen by Neurology. They have recommended MRI of the brain without contrast. Repeat EKG, SCDs, ADRIANNA stockings ordered. The patient was seen by Neurology yesterday. Their recommendations were noted. Neurology recommendations were that the patient has toxic metabolic encephalopathy secondary to chronic CO2 retention, hypoxic hypercapnic hypercarbic respiratory failure with exacerbation of chronic obstructive pulmonary disease. I have met with the patient's daughter, Brigitte and the brother in the room. I have explained to the patient's family about the patient's overall critical condition, extremely guarded to poor prognosis and worsening clinical condition and worsening medical status was explained to the patient's family at length and all questions concerned answered, which they all acknowledged and understand. According to the patient's daughter, the patient does not have a living will advance directive. I have also discussed the options of tracheostomy with the family including the daughter and the son and we will await the patient's course in the ICU depending upon the patient's clinical condition. The patient's further diagnostic therapeutic interventions will be instituted depending upon the patient's overall clinical condition and as per recommendation by all the physicians involved in the care of the patient. At present, the patient is a full code. Time spent in the entire process more than 35 minutes. Dictated and electronically signed, not read. Garett Rodríguez MD MTDD
--- NOTE | 2017-12-24 14:29 | CP.CCUPN ---
<Venancio Olivera - Last Filed: 12/24/17 14:47> CCU Subjective - Physician Review Events Since Last Encounter (Free Text): 12/24/17 09:00A Patient seen and examined at bedside. Patient spiked a fever overnight and was given tylenol. Patient's family at bedside, we discussed the benefit of sending patient for ENT evaluation to get a tracheostomy. We explained some of the risks and benefits, and patient's family was open to discussing it with ENT. CCU Objective - Vital Signs / Intake & Output Intake and Output (Last 8hrs): Intake & Output 12/23/17 12/24/17 12/24/17 22:59 06:59 14:59 Intake Total 4729 1335 75.9 Output Total 650 1800 Balance 4079 -465 75.9 Intake: IV 4479 1335 75.9 Left Antecubital 4080 levophed 30 maxipime 100 vancomycin 250 1100 versed 3 Oral 250 Output: Urine 650 1800 Urethral (Oconnell) 350 1800 Urine, Voided 300 Stool 0 Emesis 0 Other: # Bowel Movements 0 - Physical Exam Head: Positive for: Atraumatic, Normocephalic Pupils: Positive for: PERRL. Negative for: Non-Reactive, Pinpoint Extroacular Muscles: Positive for: EOMI. Negative for: Gaze Palsy, Entrapment Conjunctiva: Positive for: Normal. Negative for: Injected, Icteric Mouth: Positive for: Moist Mucous Membranes, Normal Lips, Normal Tounge. Negative for: Drooling Nose (External): Positive for: Atraumatic. Negative for: Abrasion, Laceration Nose (Internal): Positive for: Normal Inspection, No Active Bleeding. Negative for: Epistaxis Neck: Positive for: Normal Range of Motion. Negative for: Meningeal Signs, MIDLINE TENDERNESS, Paraspinal Tenderness, JVD Respiratory/Chest: Positive for: Clear to Auscultation, Good Air Exchange, Decreased Breath Sounds (mildly decreased breath sounds all bauer, again improved over prior exams). Negative for: Respiratory Distress, Accessory Muscle Use, Wheezes (no further wheezing appreciated on exam today), Rales, Rhonchi Cardiovascular: Positive for: Regular Rate and Rhythm, Normal S1, S2. Negative for: Murmurs, Irregular Rhythm, Tachycardic, Bradycardic Abdomen: Negative for: Tenderness, Distention, Peritoneal Signs Back: Positive for: Normal Inspection. Negative for: CVA Tenderness, Midline Tenderness, Paraspinal Tenderness Upper Extremity: Positive for: Normal Inspection, Normal ROM, NORMAL PULSES. Negative for: Cyanosis, Edema, Tenderness, Swelling, Erythema, Deformity Lower Extremity: Positive for: Normal Inspection, NORMAL PULSES, Normal ROM. Negative for: Edema, CALF TENDERNESS, Cyanosis, Tenderness, Swelling, Erythema, Deformity Neurological: Positive for: GCS=15, Speech Normal, Motor Func Grossly Intact, Normal Sensory Function, Other (following all commands appropriately, no appreciable lethargy/somnolence) Skin: Positive for: Warm, Dry, Normal Color. Negative for: Rashes Psychiatric: Positive for: Alert, Oriented x 3 (x4 (self, location, year, president)), Normal Insight, Normal Concentration, Normal Affect, Normal Mood - Medications Active Medications: Active Medications Generic Name Dose Route Start Last Admin Trade Name Freq PRN Reason Stop Dose Admin Acetaminophen 650 mg 12/16/17 19:09 12/17/17 08:30 Tylenol 650 Mg Supp RC 650 mg Q6H PRN Administration TEMP>=99.5F Aspirin 325 mg 12/20/17 10:00 12/24/17 10:10 Aspirin PO 325 mg DAILY DAVE Administration Atorvastatin Calcium 10 mg 12/19/17 17:00 12/23/17 17:43 Lipitor PO Not Given DIN DAVE Budesonide 1 mg 12/22/17 20:00 12/24/17 07:43 Pulmicort Respules IH 0.5 mg [id number] DAVE Administration Doxycycline Hyclate 100 mg 12/19/17 22:00 12/24/17 09:44 Doryx PO Not Given Q12 DAVE Enoxaparin Sodium 40 mg 12/17/17 10:00 12/24/17 09:46 Lovenox SC 40 mg DAILY DAVE Administration Protocol Ergocalciferol 1 cap 12/20/17 10:00 12/20/17 10:07 Drisdol 50,000 Intl Units Cap PO 1 cap Q7D DAVE Administration Hydralazine HCl 10 mg 12/23/17 14:29 12/23/17 14:30 Apresoline IVP 10 mg Q6 PRN Administration Systolic Blood Pressure Hydrocortisone Sodium Succinate 50 mg 12/23/17 18:00 12/24/17 11:24 Solu-Cortef IVP 50 mg Q6 DAVE Administration Midazolam 100 mg/100ml in NS 100 mg in 100 mls @ 1 mls/hr 12/23/17 15:31 01/05 11:45 Midazolam 100 Mg/100ml In Ns IV 0 mg/hr .Q24H PRN 0 mls/hr Sedation Titration Protocol 1 MG/HR NOREPINEPHRINE BIT/0.9 % NACL 4 mg in 250 mls @ 15 mls/hr 12/23/17 17:07 01/05 07:38 Levophed 4 Mg/ 250 Ml Ns Premixed IV 0 mcg/min .[id number] PRN 0 mls/hr TITRATE PER MD ORDER Titration Protocol 4 MCG/MIN Sodium Chloride 1,000 mls @ 80 mls/hr 12/23/17 18:00 12/24/17 05:43 Sodium Chloride 0.9% IV 80 mls/hr .[id number] DAVE Administration Vasopressin 20 units/ Dextrose 101 mls @ 9.09 mls/hr 12/23/17 18:00 12/24/17 05:51 IV 9.09 mls/hr .[id number] DAVE Administration Protocol 0.03 U/MIN Acetaminophen 1,000 mg in 100 mls @ 400 mls/hr 12/24/17 03:52 12/24/17 04:17 Ofirmev IVPB 12/26/17 03:53 400 mls/hr Q6H PRN Administration fever >100.4 Vancomycin HCl 1 gm in 250 mls @ 167 mls/hr 12/24/17 10:00 12/24/17 11:00 Vancomycin 1gm IVPB 167 mls/hr Q12 DAVE Administration Protocol Cefepime HCl 2 gm in 100 mls @ 100 mls/hr 12/24/17 09:15 12/24/17 09:46 Maxipime 2gm IVPB 12/29/17 09:16 100 mls/hr Q8 DAVE Administration Protocol Ipratropium [place] 0.5 mg 12/22/17 14:00 12/24/17 13:51 Atrovent IH 0.5 mg [id number] DAVE Administration Ipratropium [place] 0.5 mg 12/22/17 12:21 Atrovent IH Q2H PRN Shortness of Breath Levalbuterol HCl 0.63 mg 12/16/17 15:37 Xopenex IH Q2 PRN Shortness of Breath Levalbuterol HCl 0.63 mg 12/22/17 08:00 12/24/17 13:51 Xopenex IH 0.63 mg 0200,0800,1400,2000 DAVE Administration Ondansetron HCl 4 mg 12/16/17 19:09 Zofran Inj IVP Q4H PRN Nausea/Vomiting Pantoprazole Sodium 40 mg 12/23/17 22:00 12/24/17 09:48 Protonix Inj IVP 40 mg Q12 DAVE Administration Polyethylene Glycol 17 gm 12/19/17 10:30 12/24/17 09:47 Miralax PO 17 gm DAILY DAVE Administration - Patient Studies Lab Studies: Microbiology Studies 12/23/17 17:00 Gram Stain - Final Sputum Lab Studies 12/24/17 12/24/17 12/24/17 Range/Units 06:50 06:50 06:11 WBC 5.8 D (4.5-11.0) 10^3/ul RBC 4.04 (3.5-6.1) 10^6/uL Hgb 11.8 L (12.0-16.0) g/dL Hct 36.8 (36.0-48.0) % MCV 91.1 (80.0-105.0) fl MCH 29.2 (25.0-35.0) pg MCHC 32.1 (31.0-37.0) g/dl RDW 13.5 (11.5-14.5) % Plt Count 146 (120.0-450.0) 10^3/uL MPV 11.0 (7.0-11.0) fl Gran % 84.1 H (50.0-68.0) % Lymph % (Auto) 10.2 L (22.0-35.0) % Crenshaw % (Auto) 5.7 (1.0-6.0) % Eos % (Auto) 0.0 L (1.5-5.0) % Baso % (Auto) 0.0 (0.0-3.0) % Gran # 4.89 (1.4-6.5) Lymph # (Auto) 0.6 L (1.2-3.4) Crenshaw # (Auto) 0.3 (0.1-0.6) Eos # (Auto) 0.0 (0.0-0.7) Baso # (Auto) 0.00 (0.0-2.0) K/mm3 pCO2 (35-45) mm/Hg pO2 (80-100) mm/Hg HCO3 ABG pH (7.35-7.45) ABG Total CO2 ABG O2 Saturation (95-98) % ABG O2 Content (15-23) ML/dl ABG Base Excess ABG Hemoglobin (11.7-17.4) g/dL ABG Carboxyhemoglobin (0.5-1.5) % POC ABG HHb (Measured) (0-5) % ABG Methemoglobin (0.0-3.0) % ABG O2 Capacity (16-24) mL/dl ABG Potassium (3.6-5.2) mmol/L Hgb O2 Saturation (95.0-98.0) % Sodium 139 (132-148) mmol/L Chloride 99 (98-107) mmol/L Glucose (65-105) mg/dl Lactate (0.7-2.1) mmol/L Mechanical Rate FiO2 % Tidal Volume PEEP Potassium 3.4 L (3.6-5.0) mmol/L Carbon Dioxide 32 (21-33) mmol/L Anion Gap 12 (10-20) BUN 15 (7-21) mg/dL Creatinine 0.5 L (0.7-1.2) mg/dl Est GFR ( Amer) > 60 Est GFR (Non-Af Amer) > 60 POC Glucose (mg/dL) 79 (65-110) mg/dL Random Glucose 92 (70-110) mg/dL Calcium 8.1 L (8.4-10.5) mg/dL Magnesium 1.8 (1.7-2.2) mg/dL Total Bilirubin 0.8 (0.2-1.3) mg/dL Direct Bilirubin 0.2 (0.0-0.4) mg/dL AST 32 (14-36) U/L ALT 72 H (7-56) U/L Alkaline Phosphatase 56 (38-126) U/L Troponin I 0.30 H* D ng/mL Total Protein 5.9 (5.8-8.3) g/dL Albumin 3.3 (3.0-4.8) g/dL Globulin 2.5 gm/dL Albumin/Globulin Ratio 1.3 (1.1-1.8) Procalcitonin (0.19-0.49) NG/ML Arterial Blood Potassium (3.6-5.2) mmol/L 12/24/17 12/23/17 12/23/17 Range/Units 05:00 23:55 19:15 WBC 12.8 H D (4.5-11.0) 10^3/ul RBC 4.03 (3.5-6.1) 10^6/uL Hgb 11.8 L D (12.0-16.0) g/dL Hct 37.7 (36.0-48.0) % MCV 93.5 (80.0-105.0) fl MCH 29.3 (25.0-35.0) pg MCHC 31.3 (31.0-37.0) g/dl RDW 13.5 (11.5-14.5) % Plt Count 205 (120.0-450.0) 10^3/uL MPV 11.0 (7.0-11.0) fl Gran % 82.4 H (50.0-68.0) % Lymph % (Auto) 12.2 L (22.0-35.0) % Crenshaw % (Auto) 5.4 (1.0-6.0) % Eos % (Auto) 0.0 L (1.5-5.0) % Baso % (Auto) 0.0 (0.0-3.0) % Gran # 10.54 H (1.4-6.5) Lymph # (Auto) 1.6 (1.2-3.4) Crenshaw # (Auto) 0.7 H (0.1-0.6) Eos # (Auto) 0.0 (0.0-0.7) Baso # (Auto) 0.00 (0.0-2.0) K/mm3 pCO2 34 L (35-45) mm/Hg pO2 95.0 (80-100) mm/Hg HCO3 30.4 H ABG pH 7.56 H (7.35-7.45) ABG Total CO2 31.4 H ABG O2 Saturation 99.8 H (95-98) % ABG O2 Content 15.4 (15-23) ML/dl ABG Base Excess 7.9 H ABG Hemoglobin 11.2 L (11.7-17.4) g/dL ABG Carboxyhemoglobin 1.6 H (0.5-1.5) % POC ABG HHb (Measured) 0.2 (0-5) % ABG Methemoglobin 0.9 (0.0-3.0) % ABG O2 Capacity 15.4 L (16-24) mL/dl ABG Potassium (3.6-5.2) mmol/L Hgb O2 Saturation 97.3 (95.0-98.0) % Sodium (132-148) mmol/L Chloride (98-107) mmol/L Glucose (65-105) mg/dl Lactate (0.7-2.1) mmol/L Mechanical Rate FiO2 40.0 % Tidal Volume PEEP Potassium (3.6-5.0) mmol/L Carbon Dioxide (21-33) mmol/L Anion Gap (10-20) BUN (7-21) mg/dL Creatinine (0.7-1.2) mg/dl Est GFR ( Amer) Est GFR (Non-Af Amer) POC Glucose (mg/dL) 94 (65-110) mg/dL Random Glucose (70-110) mg/dL Calcium (8.4-10.5) mg/dL Magnesium (1.7-2.2) mg/dL Total Bilirubin (0.2-1.3) mg/dL Direct Bilirubin (0.0-0.4) mg/dL AST (14-36) U/L ALT (7-56) U/L Alkaline Phosphatase (38-126) U/L Troponin I ng/mL Total Protein (5.8-8.3) g/dL Albumin (3.0-4.8) g/dL Globulin gm/dL Albumin/Globulin Ratio (1.1-1.8) Procalcitonin (0.19-0.49) NG/ML Arterial Blood Potassium (3.6-5.2) mmol/L 12/23/17 12/23/17 12/23/17 Range/Units 18:15 18:15 18:01 WBC (4.5-11.0) 10^3/ul RBC (3.5-6.1) 10^6/uL Hgb (12.0-16.0) g/dL Hct (36.0-48.0) % MCV (80.0-105.0) fl MCH (25.0-35.0) pg MCHC (31.0-37.0) g/dl RDW (11.5-14.5) % Plt Count (120.0-450.0) 10^3/uL MPV (7.0-11.0) fl Gran % (50.0-68.0) % Lymph % (Auto) (22.0-35.0) % Crenshaw % (Auto) (1.0-6.0) % Eos % (Auto) (1.5-5.0) % Baso % (Auto) (0.0-3.0) % Gran # (1.4-6.5) Lymph # (Auto) (1.2-3.4) Crenshaw # (Auto) (0.1-0.6) Eos # (Auto) (0.0-0.7) Baso # (Auto) (0.0-2.0) K/mm3 pCO2 (35-45) mm/Hg pO2 (80-100) mm/Hg HCO3 ABG pH (7.35-7.45) ABG Total CO2 ABG O2 Saturation (95-98) % ABG O2 Content (15-23) ML/dl ABG Base Excess ABG Hemoglobin (11.7-17.4) g/dL ABG Carboxyhemoglobin (0.5-1.5) % POC ABG HHb (Measured) (0-5) % ABG Methemoglobin (0.0-3.0) % ABG O2 Capacity (16-24) mL/dl ABG Potassium (3.6-5.2) mmol/L Hgb O2 Saturation (95.0-98.0) % Sodium 143 (132-148) mmol/L Chloride 100 (98-107) mmol/L Glucose (65-105) mg/dl Lactate (0.7-2.1) mmol/L Mechanical Rate FiO2 % Tidal Volume PEEP Potassium 3.5 L (3.6-5.0) mmol/L Carbon Dioxide 34 H (21-33) mmol/L Anion Gap 12 (10-20) BUN 19 (7-21) mg/dL Creatinine 0.4 L (0.7-1.2) mg/dl Est GFR ( Amer) > 60 Est GFR (Non-Af Amer) > 60 POC Glucose (mg/dL) 147 H (65-110) mg/dL Random Glucose 128 H (70-110) mg/dL Calcium 7.2 L (8.4-10.5) mg/dL Magnesium (1.7-2.2) mg/dL Total Bilirubin 0.4 (0.2-1.3) mg/dL Direct Bilirubin (0.0-0.4) mg/dL AST 23 (14-36) U/L ALT 76 H (7-56) U/L Alkaline Phosphatase 52 (38-126) U/L Troponin I < 0.01 D ng/mL Total Protein 5.1 L (5.8-8.3) g/dL Albumin 2.8 L (3.0-4.8) g/dL Globulin 2.3 gm/dL Albumin/Globulin Ratio 1.2 (1.1-1.8) Procalcitonin 0.07 L (0.19-0.49) NG/ML Arterial Blood Potassium (3.6-5.2) mmol/L 12/23/17 12/23/17 Range/Units 17:00 15:01 WBC (4.5-11.0) 10^3/ul RBC (3.5-6.1) 10^6/uL Hgb (12.0-16.0) g/dL Hct (36.0-48.0) % MCV (80.0-105.0) fl MCH (25.0-35.0) pg MCHC (31.0-37.0) g/dl RDW (11.5-14.5) % Plt Count (120.0-450.0) 10^3/uL MPV (7.0-11.0) fl Gran % (50.0-68.0) % Lymph % (Auto) (22.0-35.0) % Crenshaw % (Auto) (1.0-6.0) % Eos % (Auto) (1.5-5.0) % Baso % (Auto) (0.0-3.0) % Gran # (1.4-6.5) Lymph # (Auto) (1.2-3.4) Crenshaw # (Auto) (0.1-0.6) Eos # (Auto) (0.0-0.7) Baso # (Auto) (0.0-2.0) K/mm3 pCO2 44 > 150 H* (35-45) mm/Hg pO2 113.0 H 36.0 L* (80-100) mm/Hg HCO3 27.3 TEST NOT PERFORMED ABG pH 7.40 7.12 L* (7.35-7.45) ABG Total CO2 28.7 H TEST NOT PERFORMED ABG O2 Saturation 99.9 H 64.6 L (95-98) % ABG O2 Content 11.9 L (15-23) ML/dl ABG Base Excess 2.0 TEST NOT PERFORMED ABG Hemoglobin 13.5 (11.7-17.4) g/dL ABG Carboxyhemoglobin 2.0 H (0.5-1.5) % POC ABG HHb (Measured) 34.3 H (0-5) % ABG Methemoglobin 0.9 (0.0-3.0) % ABG O2 Capacity 18.4 (16-24) mL/dl ABG Potassium 3.0 L (3.6-5.2) mmol/L Hgb O2 Saturation 62.7 L (95.0-98.0) % Sodium 141.0 (132-148) mmol/L Chloride 111.0 H (98-107) mmol/L Glucose 143 H (65-105) mg/dl Lactate 1.8 (0.7-2.1) mmol/L Mechanical Rate 20 FiO2 40.0 40.0 % Tidal Volume 350 PEEP 5 Potassium (3.6-5.0) mmol/L Carbon Dioxide (21-33) mmol/L Anion Gap (10-20) BUN (7-21) mg/dL Creatinine (0.7-1.2) mg/dl Est GFR ( Amer) Est GFR (Non-Af Amer) POC Glucose (mg/dL) (65-110) mg/dL Random Glucose (70-110) mg/dL Calcium (8.4-10.5) mg/dL Magnesium (1.7-2.2) mg/dL Total Bilirubin (0.2-1.3) mg/dL Direct Bilirubin (0.0-0.4) mg/dL AST (14-36) U/L ALT (7-56) U/L Alkaline Phosphatase (38-126) U/L Troponin I ng/mL Total Protein (5.8-8.3) g/dL Albumin (3.0-4.8) g/dL Globulin gm/dL Albumin/Globulin Ratio (1.1-1.8) Procalcitonin (0.19-0.49) NG/ML Arterial Blood Potassium 3.0 L (3.6-5.2) mmol/L Laboratory Results - last 24 hr 12/23/17 12/23/17 12/23/17 15:01 17:00 18:01 WBC RBC Hgb Hct MCV MCH MCHC RDW Plt Count MPV Gran % Lymph % (Auto) Crenshaw % (Auto) Eos % (Auto) Baso % (Auto) Gran # Lymph # (Auto) Crenshaw # (Auto) Eos # (Auto) Baso # (Auto) pCO2 > 150 H* 44 pO2 36.0 L* 113.0 H HCO3 TEST NOT PERFORMED 27.3 ABG pH 7.12 L* 7.40 ABG Total CO2 TEST NOT PERFORMED 28.7 H ABG O2 Saturation 64.6 L 99.9 H ABG O2 Content 11.9 L ABG Base Excess TEST NOT PERFORMED 2.0 ABG Hemoglobin 13.5 ABG Carboxyhemoglobin 2.0 H POC ABG HHb (Measured) 34.3 H ABG Methemoglobin 0.9 ABG O2 Capacity 18.4 ABG Potassium 3.0 L Hgb O2 Saturation 62.7 L Sodium 141.0 Chloride 111.0 H Glucose 143 H Lactate 1.8 Mechanical Rate 20 FiO2 40.0 40.0 Tidal Volume 350 PEEP 5 Potassium Carbon Dioxide Anion Gap BUN Creatinine Est GFR ( Amer) Est GFR (Non-Af Amer) POC Glucose (mg/dL) 147 H Random Glucose Calcium Magnesium Total Bilirubin Direct Bilirubin AST ALT Alkaline Phosphatase Troponin I Total Protein Albumin Globulin Albumin/Globulin Ratio Procalcitonin Arterial Blood Potassium 3.0 L 12/23/17 12/23/17 12/23/17 18:15 18:15 19:15 WBC 12.8 H D RBC 4.03 Hgb 11.8 L D Hct 37.7 MCV 93.5 MCH 29.3 MCHC 31.3 RDW 13.5 Plt Count 205 MPV 11.0 Gran % 82.4 H Lymph % (Auto) 12.2 L Crenshaw % (Auto) 5.4 Eos % (Auto) 0.0 L Baso % (Auto) 0.0 Gran # 10.54 H Lymph # (Auto) 1.6 Crenshaw # (Auto) 0.7 H Eos # (Auto) 0.0 Baso # (Auto) 0.00 pCO2 pO2 HCO3 ABG pH ABG Total CO2 ABG O2 Saturation ABG O2 Content ABG Base Excess ABG Hemoglobin ABG Carboxyhemoglobin POC ABG HHb (Measured) ABG Methemoglobin ABG O2 Capacity ABG Potassium Hgb O2 Saturation Sodium 143 Chloride 100 Glucose Lactate Mechanical Rate FiO2 Tidal Volume PEEP Potassium 3.5 L Carbon Dioxide 34 H Anion Gap 12 BUN 19 Creatinine 0.4 L Est GFR ( Amer) > 60 Est GFR (Non-Af Amer) > 60 POC Glucose (mg/dL) Random Glucose 128 H Calcium 7.2 L Magnesium Total Bilirubin 0.4 Direct Bilirubin AST 23 ALT 76 H Alkaline Phosphatase 52 Troponin I < 0.01 D Total Protein 5.1 L Albumin 2.8 L Globulin 2.3 Albumin/Globulin Ratio 1.2 Procalcitonin 0.07 L Arterial Blood Potassium 12/23/17 12/24/17 12/24/17 23:55 05:00 06:11 WBC RBC Hgb Hct MCV MCH MCHC RDW Plt Count MPV Gran % Lymph % (Auto) Crenshaw % (Auto) Eos % (Auto) Baso % (Auto) Gran # Lymph # (Auto) Crenshaw # (Auto) Eos # (Auto) Baso # (Auto) pCO2 34 L pO2 95.0 HCO3 30.4 H ABG pH 7.56 H ABG Total CO2 31.4 H ABG O2 Saturation 99.8 H ABG O2 Content 15.4 ABG Base Excess 7.9 H ABG Hemoglobin 11.2 L ABG Carboxyhemoglobin 1.6 H POC ABG HHb (Measured) 0.2 ABG Methemoglobin 0.9 ABG O2 Capacity 15.4 L ABG Potassium Hgb O2 Saturation 97.3 Sodium Chloride Glucose Lactate Mechanical Rate FiO2 40.0 Tidal Volume PEEP Potassium Carbon Dioxide Anion Gap BUN Creatinine Est GFR ( Amer) Est GFR (Non-Af Amer) POC Glucose (mg/dL) 94 79 Random Glucose Calcium Magnesium Total Bilirubin Direct Bilirubin AST ALT Alkaline Phosphatase Troponin I Total Protein Albumin Globulin Albumin/Globulin Ratio Procalcitonin Arterial Blood Potassium 12/24/17 12/24/17 06:50 06:50 WBC 5.8 D RBC 4.04 Hgb 11.8 L Hct 36.8 MCV 91.1 MCH 29.2 MCHC 32.1 RDW 13.5 Plt Count 146 MPV 11.0 Gran % 84.1 H Lymph % (Auto) 10.2 L Crenshaw % (Auto) 5.7 Eos % (Auto) 0.0 L Baso % (Auto) 0.0 Gran # 4.89 Lymph # (Auto) 0.6 L Crenshaw # (Auto) 0.3 Eos # (Auto) 0.0 Baso # (Auto) 0.00 pCO2 pO2 HCO3 ABG pH ABG Total CO2 ABG O2 Saturation ABG O2 Content ABG Base Excess ABG Hemoglobin ABG Carboxyhemoglobin POC ABG HHb (Measured) ABG Methemoglobin ABG O2 Capacity ABG Potassium Hgb O2 Saturation Sodium 139 Chloride 99 Glucose Lactate Mechanical Rate FiO2 Tidal Volume PEEP Potassium 3.4 L Carbon Dioxide 32 Anion Gap 12 BUN 15 Creatinine 0.5 L Est GFR ( Amer) > 60 Est GFR (Non-Af Amer) > 60 POC Glucose (mg/dL) Random Glucose 92 Calcium 8.1 L Magnesium 1.8 Total Bilirubin 0.8 Direct Bilirubin 0.2 AST 32 ALT 72 H Alkaline Phosphatase 56 Troponin I 0.30 H* D Total Protein 5.9 Albumin 3.3 Globulin 2.5 Albumin/Globulin Ratio 1.3 Procalcitonin Arterial Blood Potassium EKG/Cardiology Studies: Cardiology / EKG Studies 12/23/17 18:01 EKG [ELECTROCARDIOGRAM] Stat Comment: Reason For Exam: bradycardia 12/24/17 07:00 ELECTROCARDIOGRAM DAILY Comment: Reason For Exam: HYPTENSION/RESP.FAILURE 12/25/17 07:00 ELECTROCARDIOGRAM DAILY Comment: Reason For Exam: HYPTENSION/RESP.FAILURE 12/26/17 07:00 ELECTROCARDIOGRAM DAILY Comment: Reason For Exam: HYPTENSION/RESP.FAILURE Fingerstick Blood Sugar Results: 147 Critical Care Progress Note - Nutrition Nutrition: Nutrition Category Date Time Status NPO Diet [DIET] Diets 12/23/17 Lunch Ordered Assessment/Plan - Assessment and Plan (Free Text) Assessment: 72 yo AA F with pertinent PMH of COPD (with prior intubations for exacerbations) , asthma, and pulmonary HTN who presented to [facility] with worsening shortness of breath, found to be in hypercarbic respiratory failure, failing Bipap in ED, then intubated and placed on mechanical ventilation. Patient was extubated on . Initial ABG showed patient to be in severe respiratory acidosis with retention of CO2; patient was also altered as a result of Hypoxemic Hypercapneic Respiratory failure. Patient was doing better yesterday and was ready for transfer out of ICU when she started desatting and was becoming acutely altered mentally. Patient was re-intubated; her ABG changed from acidotic to alkalotic this am. We obtained CT Head to rule out any neurogenic causes for her desaturation, which was negative. Septic work up was ordered as well which is pending, including procalcitonin. CT Chest shows bibasilar atelectasis with possible overlying pneumonia. Troponin was ordered by PMD, which came back elevated at .3; Dr. Parry made aware. Other chronic medical prolems: HTN Plan: Neuro: - Keep intubated and sedated - ENT consult for tracheostomy - Maintain normothermia - Once extubated and acute exacerbation resolves - patient should tapered off steroids. Cardio: - Maintain regular rate and rhythm - Possible NSTEMI: Dr. Parry on consult, taking her to optical lab technician tomorrow - Lovenox for DVT ppx; Daily ASA Pulm: - Hypoxic Hypercapneic Respiratory Failure Likely 2/2 PNA VS COPD VS Mixed picture - Vanc/Cefepime - Solumedrol, Xopenex, Atrovent, Budesonide - Pulm consult: Dr. Smart GI: - Protonix for GI ppx - Miralax Dave; Zofran PRN Renal: - Monitor and replete electrolytes as needed Heme: - Lovenox for DVT ppx ID: - Covered for PNA with Cefepime and Vanc Dispo: <Ronny Rodriguez - Last Filed: 12/24/17 17:12> CCU Objective - Vital Signs / Intake & Output Vital Signs (Last 4 hours): Vital Signs Temp Pulse Resp BP Pulse Ox 12/24/17 16:31 126/61 12/24/17 16:00 99 F 88 16 121/67 100 Intake and Output (Last 8hrs): Intake & Output 12/24/17 12/24/17 12/24/17 06:59 14:59 22:59 Intake Total 1335 75.9 Output Total 1800 Balance -465 75.9 Intake: IV 1335 75.9 vancomycin 1100 Output: Urine 1800 Urethral (Oconnell) 1800 Stool 0 Emesis 0 - Medications Active Medications: Active Medications Generic Name Dose Route Start Last Admin Trade Name Freq PRN Reason Stop Dose Admin Acetaminophen 650 mg 12/16/17 19:09 12/17/17 08:30 Tylenol 650 Mg Supp RC 650 mg Q6H PRN Administration TEMP>=99.5F Aspirin 325 mg 12/20/17 10:00 12/24/17 10:10 Aspirin PO 325 mg DAILY DAVE Administration Atorvastatin Calcium 10 mg 12/19/17 17:00 12/24/17 17:06 Lipitor PO 10 mg DIN DAVE Administration Budesonide 1 mg 12/22/17 20:00 12/24/17 07:43 Pulmicort Respules IH 0.5 mg [id number] DAVE Administration Doxycycline Hyclate 100 mg 12/19/17 22:00 12/24/17 09:44 Doryx PO Not Given Q12 DAVE Enoxaparin Sodium 40 mg 12/17/17 10:00 12/24/17 09:46 Lovenox SC 40 mg DAILY DAVE Administration Protocol Ergocalciferol 1 cap 12/20/17 10:00 12/20/17 10:07 Drisdol 50,000 Intl Units Cap PO 1 cap Q7D DAVE Administration Hydralazine HCl 10 mg 12/23/17 14:29 12/23/17 14:30 Apresoline IVP 10 mg Q6 PRN Administration Systolic Blood Pressure Hydrocortisone Sodium Succinate 50 mg 12/23/17 18:00 12/24/17 17:05 Solu-Cortef IVP 50 mg Q6 DAVE Administration Midazolam 100 mg/100ml in NS 100 mg in 100 mls @ 1 mls/hr 12/23/17 15:31 01/05 11:45 Midazolam 100 Mg/100ml In Ns IV 0 mg/hr .Q24H PRN 0 mls/hr Sedation Titration Protocol 1 MG/HR NOREPINEPHRINE BIT/0.9 % NACL 4 mg in 250 mls @ 15 mls/hr 12/23/17 17:07 01/05 07:38 Levophed 4 Mg/ 250 Ml Ns Premixed IV 0 mcg/min .[id number] PRN 0 mls/hr TITRATE PER MD ORDER Titration Protocol 4 MCG/MIN Sodium Chloride 1,000 mls @ 80 mls/hr 12/23/17 18:00 12/24/17 05:43 Sodium Chloride 0.9% IV 80 mls/hr .[id number] DAVE Administration Vasopressin 20 units/ Dextrose 101 mls @ 9.09 mls/hr 12/23/17 18:00 12/24/17 16:31 IV 9.09 mls/hr .[id number] DAVE Administration Protocol 0.03 U/MIN Acetaminophen 1,000 mg in 100 mls @ 400 mls/hr 12/24/17 03:52 12/24/17 04:17 Ofirmev IVPB 12/26/17 03:53 400 mls/hr Q6H PRN Administration fever >100.4 Vancomycin HCl 1 gm in 250 mls @ 167 mls/hr 12/24/17 10:00 12/24/17 11:00 Vancomycin 1gm IVPB 167 mls/hr Q12 DAVE Administration Protocol Cefepime HCl 2 gm in 100 mls @ 100 mls/hr 12/24/17 09:15 12/24/17 14:23 Maxipime 2gm IVPB 12/29/17 09:16 100 mls/hr Q8 DAVE Administration Protocol Ipratropium [place] 0.5 mg 12/22/17 14:00 12/24/17 13:51 Atrovent IH 0.5 mg [id number] DAVE Administration Ipratropium [place] 0.5 mg 12/22/17 12:21 Atrovent IH Q2H PRN Shortness of Breath Levalbuterol HCl 0.63 mg 12/16/17 15:37 Xopenex IH Q2 PRN Shortness of Breath Levalbuterol HCl 0.63 mg 12/22/17 08:00 12/24/17 13:51 Xopenex IH 0.63 mg 0200,0800,1400,2000 DAVE Administration Ondansetron HCl 4 mg 12/16/17 19:09 Zofran Inj IVP Q4H PRN Nausea/Vomiting Pantoprazole Sodium 40 mg 12/23/17 22:00 12/24/17 09:48 Protonix Inj IVP 40 mg Q12 DAVE Administration Polyethylene Glycol 17 gm 12/19/17 10:30 12/24/17 09:47 Miralax PO 17 gm DAILY DAVE Administration - Patient Studies Lab Studies: Microbiology Studies 12/23/17 17:00 Gram Stain - Final Sputum Lab Studies 12/24/17 12/24/17 12/24/17 Range/Units 06:50 06:50 06:11 WBC 5.8 D (4.5-11.0) 10^3/ul RBC 4.04 (3.5-6.1) 10^6/uL Hgb 11.8 L (12.0-16.0) g/dL Hct 36.8 (36.0-48.0) % MCV 91.1 (80.0-105.0) fl MCH 29.2 (25.0-35.0) pg MCHC 32.1 (31.0-37.0) g/dl RDW 13.5 (11.5-14.5) % Plt Count 146 (120.0-450.0) 10^3/uL MPV 11.0 (7.0-11.0) fl Gran % 84.1 H (50.0-68.0) % Lymph % (Auto) 10.2 L (22.0-35.0) % [place] % (Auto) 5.7 (1.0-6.0) % Eos % (Auto) 0.0 L (1.5-5.0) % Baso % (Auto) 0.0 (0.0-3.0) % Gran # 4.89 (1.4-6.5) Lymph # (Auto) 0.6 L (1.2-3.4) [place] # (Auto) 0.3 (0.1-0.6) Eos # (Auto) 0.0 (0.0-0.7) Baso # (Auto) 0.00 (0.0-2.0) K/mm3 pCO2 (35-45) mm/Hg pO2 (80-100) mm/Hg HCO3 (21-28) mmol/L ABG pH (7.35-7.45) ABG Total CO2 (22-28) mmol.L ABG O2 Saturation (95-98) % ABG O2 Content (15-23) ML/dl ABG Base Excess (-2.0-3.0) mmol/L ABG Hemoglobin (11.7-17.4) g/dL ABG Carboxyhemoglobin (0.5-1.5) % POC ABG HHb (Measured) (0-5) % ABG Methemoglobin (0.0-3.0) % ABG O2 Capacity (16-24) mL/dl ABG Potassium (3.6-5.2) mmol/L Hgb O2 Saturation (95.0-98.0) % Sodium 139 (132-148) mmol/L Chloride 99 (98-107) mmol/L Glucose (65-105) mg/dl Lactate (0.7-2.1) mmol/L Mechanical Rate FiO2 % Tidal Volume PEEP Potassium 3.4 L (3.6-5.0) mmol/L Carbon Dioxide 32 (21-33) mmol/L Anion Gap 12 (10-20) BUN 15 (7-21) mg/dL Creatinine 0.5 L (0.7-1.2) mg/dl Est GFR ( Amer) > 60 Est GFR (Non-Af Amer) > 60 POC Glucose (mg/dL) 79 (65-110) mg/dL Random Glucose 92 (70-110) mg/dL Calcium 8.1 L (8.4-10.5) mg/dL Magnesium 1.8 (1.7-2.2) mg/dL Total Bilirubin 0.8 (0.2-1.3) mg/dL Direct Bilirubin 0.2 (0.0-0.4) mg/dL AST 32 (14-36) U/L ALT 72 H (7-56) U/L Alkaline Phosphatase 56 (38-126) U/L Troponin I 0.30 H* D ng/mL Total Protein 5.9 (5.8-8.3) g/dL Albumin 3.3 (3.0-4.8) g/dL Globulin 2.5 gm/dL Albumin/Globulin Ratio 1.3 (1.1-1.8) Procalcitonin (0.19-0.49) NG/ML Arterial Blood Potassium (3.6-5.2) mmol/L 12/24/17 12/23/17 12/23/17 Range/Units 05:00 23:55 19:15 WBC 12.8 H D (4.5-11.0) 10^3/ul RBC 4.03 (3.5-6.1) 10^6/uL Hgb 11.8 L D (12.0-16.0) g/dL Hct 37.7 (36.0-48.0) % MCV 93.5 (80.0-105.0) fl MCH 29.3 (25.0-35.0) pg MCHC 31.3 (31.0-37.0) g/dl RDW 13.5 (11.5-14.5) % Plt Count 205 (120.0-450.0) 10^3/uL MPV 11.0 (7.0-11.0) fl Gran % 82.4 H (50.0-68.0) % Lymph % (Auto) 12.2 L (22.0-35.0) % Crenshaw % (Auto) 5.4 (1.0-6.0) % Eos % (Auto) 0.0 L (1.5-5.0) % Baso % (Auto) 0.0 (0.0-3.0) % Gran # 10.54 H (1.4-6.5) Lymph # (Auto) 1.6 (1.2-3.4) Crenshaw # (Auto) 0.7 H (0.1-0.6) Eos # (Auto) 0.0 (0.0-0.7) Baso # (Auto) 0.00 (0.0-2.0) K/mm3 pCO2 34 L (35-45) mm/Hg pO2 95.0 (80-100) mm/Hg HCO3 30.4 H (21-28) mmol/L ABG pH 7.56 H (7.35-7.45) ABG Total CO2 31.4 H (22-28) mmol.L ABG O2 Saturation 99.8 H (95-98) % ABG O2 Content 15.4 (15-23) ML/dl ABG Base Excess 7.9 H (-2.0-3.0) mmol/L ABG Hemoglobin 11.2 L (11.7-17.4) g/dL ABG Carboxyhemoglobin 1.6 H (0.5-1.5) % POC ABG HHb (Measured) 0.2 (0-5) % ABG Methemoglobin 0.9 (0.0-3.0) % ABG O2 Capacity 15.4 L (16-24) mL/dl ABG Potassium (3.6-5.2) mmol/L Hgb O2 Saturation 97.3 (95.0-98.0) % Sodium (132-148) mmol/L Chloride (98-107) mmol/L Glucose (65-105) mg/dl Lactate (0.7-2.1) mmol/L Mechanical Rate FiO2 40.0 % Tidal Volume PEEP Potassium (3.6-5.0) mmol/L Carbon Dioxide (21-33) mmol/L Anion Gap (10-20) BUN (7-21) mg/dL Creatinine (0.7-1.2) mg/dl Est GFR ( Amer) Est GFR (Non-Af Amer) POC Glucose (mg/dL) 94 (65-110) mg/dL Random Glucose (70-110) mg/dL Calcium (8.4-10.5) mg/dL Magnesium (1.7-2.2) mg/dL Total Bilirubin (0.2-1.3) mg/dL Direct Bilirubin (0.0-0.4) mg/dL AST (14-36) U/L ALT (7-56) U/L Alkaline Phosphatase (38-126) U/L Troponin I ng/mL Total Protein (5.8-8.3) g/dL Albumin (3.0-4.8) g/dL Globulin gm/dL Albumin/Globulin Ratio (1.1-1.8) Procalcitonin (0.19-0.49) NG/ML Arterial Blood Potassium (3.6-5.2) mmol/L 12/23/17 12/23/17 12/23/17 Range/Units 18:15 18:15 18:01 WBC (4.5-11.0) 10^3/ul RBC (3.5-6.1) 10^6/uL Hgb (12.0-16.0) g/dL Hct (36.0-48.0) % MCV (80.0-105.0) fl MCH (25.0-35.0) pg MCHC (31.0-37.0) g/dl RDW (11.5-14.5) % Plt Count (120.0-450.0) 10^3/uL MPV (7.0-11.0) fl Gran % (50.0-68.0) % Lymph % (Auto) (22.0-35.0) % Crenshaw % (Auto) (1.0-6.0) % Eos % (Auto) (1.5-5.0) % Baso % (Auto) (0.0-3.0) % Gran # (1.4-6.5) Lymph # (Auto) (1.2-3.4) Crenshaw # (Auto) (0.1-0.6) Eos # (Auto) (0.0-0.7) Baso # (Auto) (0.0-2.0) K/mm3 pCO2 (35-45) mm/Hg pO2 (80-100) mm/Hg HCO3 (21-28) mmol/L ABG pH (7.35-7.45) ABG Total CO2 (22-28) mmol.L ABG O2 Saturation (95-98) % ABG O2 Content (15-23) ML/dl ABG Base Excess (-2.0-3.0) mmol/L ABG Hemoglobin (11.7-17.4) g/dL ABG Carboxyhemoglobin (0.5-1.5) % POC ABG HHb (Measured) (0-5) % ABG Methemoglobin (0.0-3.0) % ABG O2 Capacity (16-24) mL/dl ABG Potassium (3.6-5.2) mmol/L Hgb O2 Saturation (95.0-98.0) % Sodium 143 (132-148) mmol/L Chloride 100 (98-107) mmol/L Glucose (65-105) mg/dl Lactate (0.7-2.1) mmol/L Mechanical Rate FiO2 % Tidal Volume PEEP Potassium 3.5 L (3.6-5.0) mmol/L Carbon Dioxide 34 H (21-33) mmol/L Anion Gap 12 (10-20) BUN 19 (7-21) mg/dL Creatinine 0.4 L (0.7-1.2) mg/dl Est GFR ( Amer) > 60 Est GFR (Non-Af Amer) > 60 POC Glucose (mg/dL) 147 H (65-110) mg/dL Random Glucose 128 H (70-110) mg/dL Calcium 7.2 L (8.4-10.5) mg/dL Magnesium (1.7-2.2) mg/dL Total Bilirubin 0.4 (0.2-1.3) mg/dL Direct Bilirubin (0.0-0.4) mg/dL AST 23 (14-36) U/L ALT 76 H (7-56) U/L Alkaline Phosphatase 52 (38-126) U/L Troponin I < 0.01 D ng/mL Total Protein 5.1 L (5.8-8.3) g/dL Albumin 2.8 L (3.0-4.8) g/dL Globulin 2.3 gm/dL Albumin/Globulin Ratio 1.2 (1.1-1.8) Procalcitonin 0.07 L (0.19-0.49) NG/ML Arterial Blood Potassium (3.6-5.2) mmol/L 12/23/17 Range/Units 17:00 WBC (4.5-11.0) 10^3/ul RBC (3.5-6.1) 10^6/uL Hgb (12.0-16.0) g/dL Hct (36.0-48.0) % MCV (80.0-105.0) fl MCH (25.0-35.0) pg MCHC (31.0-37.0) g/dl RDW (11.5-14.5) % Plt Count (120.0-450.0) 10^3/uL MPV (7.0-11.0) fl Gran % (50.0-68.0) % Lymph % (Auto) (22.0-35.0) % Crenshaw % (Auto) (1.0-6.0) % Eos % (Auto) (1.5-5.0) % Baso % (Auto) (0.0-3.0) % Gran # (1.4-6.5) Lymph # (Auto) (1.2-3.4) Crenshaw # (Auto) (0.1-0.6) Eos # (Auto) (0.0-0.7) Baso # (Auto) (0.0-2.0) K/mm3 pCO2 44 (35-45) mm/Hg pO2 113.0 H (80-100) mm/Hg HCO3 27.3 (21-28) mmol/L ABG pH 7.40 (7.35-7.45) ABG Total CO2 28.7 H (22-28) mmol.L ABG O2 Saturation 99.9 H (95-98) % ABG O2 Content (15-23) ML/dl ABG Base Excess 2.0 (-2.0-3.0) mmol/L ABG Hemoglobin (11.7-17.4) g/dL ABG Carboxyhemoglobin (0.5-1.5) % POC ABG HHb (Measured) (0-5) % ABG Methemoglobin (0.0-3.0) % ABG O2 Capacity (16-24) mL/dl ABG Potassium 3.0 L (3.6-5.2) mmol/L Hgb O2 Saturation (95.0-98.0) % Sodium 141.0 (132-148) mmol/L Chloride 111.0 H (98-107) mmol/L Glucose 143 H (65-105) mg/dl Lactate 1.8 (0.7-2.1) mmol/L Mechanical Rate 20 FiO2 40.0 % Tidal Volume 350 PEEP 5 Potassium (3.6-5.0) mmol/L Carbon Dioxide (21-33) mmol/L Anion Gap (10-20) BUN (7-21) mg/dL Creatinine (0.7-1.2) mg/dl Est GFR ( Amer) Est GFR (Non-Af Amer) POC Glucose (mg/dL) (65-110) mg/dL Random Glucose (70-110) mg/dL Calcium (8.4-10.5) mg/dL Magnesium (1.7-2.2) mg/dL Total Bilirubin (0.2-1.3) mg/dL Direct Bilirubin (0.0-0.4) mg/dL AST (14-36) U/L ALT (7-56) U/L Alkaline Phosphatase (38-126) U/L Troponin I ng/mL Total Protein (5.8-8.3) g/dL Albumin (3.0-4.8) g/dL Globulin gm/dL Albumin/Globulin Ratio (1.1-1.8) Procalcitonin (0.19-0.49) NG/ML Arterial Blood Potassium 3.0 L (3.6-5.2) mmol/L Laboratory Results - last 24 hr 12/23/17 12/23/17 12/23/17 17:00 18:01 18:15 WBC RBC Hgb Hct MCV MCH MCHC RDW Plt Count MPV Gran % Lymph % (Auto) Crenshaw % (Auto) Eos % (Auto) Baso % (Auto) Gran # Lymph # (Auto) Crenshaw # (Auto) Eos # (Auto) Baso # (Auto) pCO2 44 pO2 113.0 H HCO3 27.3 ABG pH 7.40 ABG Total CO2 28.7 H ABG O2 Saturation 99.9 H ABG O2 Content ABG Base Excess 2.0 ABG Hemoglobin ABG Carboxyhemoglobin POC ABG HHb (Measured) ABG Methemoglobin ABG O2 Capacity ABG Potassium 3.0 L Hgb O2 Saturation Sodium 141.0 143 Chloride 111.0 H 100 Glucose 143 H Lactate 1.8 Mechanical Rate 20 FiO2 40.0 Tidal Volume 350 PEEP 5 Potassium 3.5 L Carbon Dioxide 34 H Anion Gap 12 BUN 19 Creatinine 0.4 L Est GFR ( Amer) > 60 Est GFR (Non-Af Amer) > 60 POC Glucose (mg/dL) 147 H Random Glucose 128 H Calcium 7.2 L Magnesium Total Bilirubin 0.4 Direct Bilirubin AST 23 ALT 76 H Alkaline Phosphatase 52 Troponin I < 0.01 D Total Protein 5.1 L Albumin 2.8 L Globulin 2.3 Albumin/Globulin Ratio 1.2 Procalcitonin Arterial Blood Potassium 3.0 L 12/23/17 12/23/17 12/23/17 18:15 19:15 23:55 WBC 12.8 H D RBC 4.03 Hgb 11.8 L D Hct 37.7 MCV 93.5 MCH 29.3 MCHC 31.3 RDW 13.5 Plt Count 205 MPV 11.0 Gran % 82.4 H Lymph % (Auto) 12.2 L Crenshaw % (Auto) 5.4 Eos % (Auto) 0.0 L Baso % (Auto) 0.0 Gran # 10.54 H Lymph # (Auto) 1.6 Crenshaw # (Auto) 0.7 H Eos # (Auto) 0.0 Baso # (Auto) 0.00 pCO2 pO2 HCO3 ABG pH ABG Total CO2 ABG O2 Saturation ABG O2 Content ABG Base Excess ABG Hemoglobin ABG Carboxyhemoglobin POC ABG HHb (Measured) ABG Methemoglobin ABG O2 Capacity ABG Potassium Hgb O2 Saturation Sodium Chloride Glucose Lactate Mechanical Rate FiO2 Tidal Volume PEEP Potassium Carbon Dioxide Anion Gap BUN Creatinine Est GFR ( Amer) Est GFR (Non-Af Amer) POC Glucose (mg/dL) 94 Random Glucose Calcium Magnesium Total Bilirubin Direct Bilirubin AST ALT Alkaline Phosphatase Troponin I Total Protein Albumin Globulin Albumin/Globulin Ratio Procalcitonin 0.07 L Arterial Blood Potassium 12/24/17 12/24/17 12/24/17 05:00 06:11 06:50 WBC RBC Hgb Hct MCV MCH MCHC RDW Plt Count MPV Gran % Lymph % (Auto) Crenshaw % (Auto) Eos % (Auto) Baso % (Auto) Gran # Lymph # (Auto) Crenshaw # (Auto) Eos # (Auto) Baso # (Auto) pCO2 34 L pO2 95.0 HCO3 30.4 H ABG pH 7.56 H ABG Total CO2 31.4 H ABG O2 Saturation 99.8 H ABG O2 Content 15.4 ABG Base Excess 7.9 H ABG Hemoglobin 11.2 L ABG Carboxyhemoglobin 1.6 H POC ABG HHb (Measured) 0.2 ABG Methemoglobin 0.9 ABG O2 Capacity 15.4 L ABG Potassium Hgb O2 Saturation 97.3 Sodium 139 Chloride 99 Glucose Lactate Mechanical Rate FiO2 40.0 Tidal Volume PEEP Potassium 3.4 L Carbon Dioxide 32 Anion Gap 12 BUN 15 Creatinine 0.5 L Est GFR ( Amer) > 60 Est GFR (Non-Af Amer) > 60 POC Glucose (mg/dL) 79 Random Glucose 92 Calcium 8.1 L Magnesium 1.8 Total Bilirubin 0.8 Direct Bilirubin 0.2 AST 32 ALT 72 H Alkaline Phosphatase 56 Troponin I 0.30 H* D Total Protein 5.9 Albumin 3.3 Globulin 2.5 Albumin/Globulin Ratio 1.3 Procalcitonin Arterial Blood Potassium 12/24/17 06:50 WBC 5.8 D RBC 4.04 Hgb 11.8 L Hct 36.8 MCV 91.1 MCH 29.2 MCHC 32.1 RDW 13.5 Plt Count 146 MPV 11.0 Gran % 84.1 H Lymph % (Auto) 10.2 L Crenshaw % (Auto) 5.7 Eos % (Auto) 0.0 L Baso % (Auto) 0.0 Gran # 4.89 Lymph # (Auto) 0.6 L Crenshaw # (Auto) 0.3 Eos # (Auto) 0.0 Baso # (Auto) 0.00 pCO2 pO2 HCO3 ABG pH ABG Total CO2 ABG O2 Saturation ABG O2 Content ABG Base Excess ABG Hemoglobin ABG Carboxyhemoglobin POC ABG HHb (Measured) ABG Methemoglobin ABG O2 Capacity ABG Potassium Hgb O2 Saturation Sodium Chloride Glucose Lactate Mechanical Rate FiO2 Tidal Volume PEEP Potassium Carbon Dioxide Anion Gap BUN Creatinine Est GFR ( Amer) Est GFR (Non-Af Amer) POC Glucose (mg/dL) Random Glucose Calcium Magnesium Total Bilirubin Direct Bilirubin AST ALT Alkaline Phosphatase Troponin I Total Protein Albumin Globulin Albumin/Globulin Ratio Procalcitonin Arterial Blood Potassium EKG/Cardiology Studies: Cardiology / EKG Studies 12/23/17 18:01 EKG [ELECTROCARDIOGRAM] Stat Comment: Reason For Exam: bradycardia 12/24/17 07:00 ELECTROCARDIOGRAM DAILY Comment: Reason For Exam: HYPTENSION/RESP.FAILURE 12/25/17 07:00 ELECTROCARDIOGRAM DAILY Comment: Reason For Exam: HYPTENSION/RESP.FAILURE 12/26/17 07:00 ELECTROCARDIOGRAM DAILY Comment: Reason For Exam: HYPTENSION/RESP.FAILURE Critical Care Progress Note - Nutrition Nutrition: Nutrition Category Date Time Status NPO Diet [DIET] Diets 12/23/17 Lunch Ordered Attending/Attestation - Attestation I have personally seen and examined this patient.: Yes I have fully participated in the care of the patient.: Yes I have reviewed all pertinent clinical information: Yes Notes (Text): 12/24/17 17:09 72 yo female with severe copd, HCRF, intubated, s/p reintubation yesterday, now appears to be doing better. Off sedation, will try PST. Going for coronary angio to rule out acute ischemic event as a cause of recent failure. If no reversable cause identified, trach may be the safest way to proceed, taking into account her prior clinical course. HOB>35, dvt/gi prophylaxis, oral hygiene , steroid taper, bronchodilators ccm time 40 min
--- NOTE | 2017-12-24 15:05 | CARD ---
APPROVED REPORT EKG Measurement Heart [id number] <Conclusion> Normal sinus rhythm Left ventricular hypertrophy STTW changes c/w ischemia Prolonged QT
--- NOTE | 2017-12-24 15:41 | CP.PCM.CON ---
<Connie Meek - Last Filed: 12/24/17 15:38> History of Present Illness - History of Present Illness History of Present Illness: ENT consult note for Dr. Martha Meek, PGY-1 Pt S & E at bedside at 1440. Pt intubated, son at bedside providing history. 72F w/PMH sig for COPD s/p intubation consulted for tracheostomy. Pt admitted to hospital for COPD exacerbation, intubated due to respiratory distress/ hypercapneic respiratory failure in ED. Pt extubated on hospital day 2. Pt re- intubated due to hypercapneic respiratory failure recurrence on hospital day 6. Per son, pt has been intubated 3-4 x for COPD exacerbation starting 4 yrs prior to evaluation. ROS limited to due intubation. PMH: COPD, asthma, pulmonary HTN PSH: Hysterectomy All: peanuts SH: Former tobacco/snuff powder user, denies ETOH or illicit drug use FH: Non contributory Review of Systems - Review of Systems Systems not reviewed;Unavailable: Intubated Past Patient History - Infectious Disease Hx of Infectious Diseases: None - Tetanus Immunizations Tetanus Immunization: Unknown - Past Social History Smoking Status: Former Smoker - CARDIAC Hx Hypertension: Yes - PULMONARY Hx Asthma: Yes Hx Chronic Obstructive Pulmonary Disease (COPD): Yes - NEUROLOGICAL Hx Neurological Disorder: Yes (Concussion) - HEENT Hx HEENT Problems: No - RENAL Hx Chronic Kidney Disease: No - ENDOCRINE/METABOLIC Hx Hypothyroidism: Yes - HEMATOLOGICAL/ONCOLOGICAL Hx Blood Disorders: No - INTEGUMENTARY Hx Dermatological Problems: No - MUSCULOSKELETAL/RHEUMATOLOGICAL Hx Falls: Yes (past) - GASTROINTESTINAL Hx Gastrointestinal Disorders: Yes Hx Gastroesophageal Reflux: Yes - GENITOURINARY/GYNECOLOGICAL Hx Genitourinary Disorders: No - PSYCHIATRIC Hx Psychophysiologic Disorder: No Hx Substance Use: No - SURGICAL HISTORY Hx Hysterectomy: Yes - ANESTHESIA Hx Anesthesia: Yes Hx Anesthesia Reactions: No Hx Malignant Hyperthermia: No Meds Allergies/Adverse Reactions: Allergies Allergy/AdvReac Type Severity Reaction Status Date / Time peanut Allergy ANAPHYLAXIS Verified 12/16/17 12:25 - Medications Medications: Current Medications Acetaminophen (Tylenol 650 Mg Supp) 650 mg RC Q6H PRN PRN Reason: TEMP>=99.5F Last Admin: 12/17/17 08:30 Dose: 650 mg Aspirin (Aspirin) 325 mg PO DAILY [facility] Last Admin: 12/24/17 10:10 Dose: 325 mg Atorvastatin Calcium (Lipitor) 10 mg PO DIN [facility] Last Admin: 12/23/17 17:43 Dose: Not Given Budesonide (Pulmicort Respules) 1 mg IH [id number] [facility] Last Admin: 12/24/17 07:43 Dose: 0.5 mg Doxycycline Hyclate (Doryx) 100 mg PO Q12 [facility] Last Admin: 12/24/17 09:44 Dose: Not Given Enoxaparin Sodium (Lovenox) 40 mg SC DAILY [facility] PRN Reason: Protocol Last Admin: 12/24/17 09:46 Dose: 40 mg Ergocalciferol (Drisdol 50,000 Intl Units Cap) 1 cap PO Q7D [facility] Last Admin: 12/20/17 10:07 Dose: 1 cap Hydralazine HCl (Apresoline) 10 mg IVP Q6 PRN PRN Reason: Systolic Blood Pressure Last Admin: 12/23/17 14:30 Dose: 10 mg Hydrocortisone Sodium Succinate (Solu-Cortef) 50 mg IVP Q6 [facility] Last Admin: 12/24/17 11:24 Dose: 50 mg Midazolam 100 mg/100ml in NS (Midazolam 100 Mg/100ml In Ns) 100 mg in 100 mls @ 1 mls/hr IV .Q24H PRN; Protocol; 1 MG/HR PRN Reason: Sedation Last Titration: 12/24/17 11:45 Dose: 0 mg/hr, 0 mls/hr NOREPINEPHRINE BIT/0.9 % NACL (Levophed 4 Mg/ 250 Ml Ns Premixed) 4 mg in 250 mls @ 15 mls/hr IV .[id number] PRN; Protocol; 4 MCG/MIN PRN Reason: TITRATE PER MD ORDER Last Titration: 12/24/17 07:38 Dose: 0 mcg/min, 0 mls/hr Sodium Chloride (Sodium Chloride 0.9%) 1,000 mls @ 80 mls/hr IV .[id number] [facility] Last Admin: 12/24/17 05:43 Dose: 80 mls/hr Vasopressin 20 units/ Dextrose 101 mls @ 9.09 mls/hr IV .[id number] KRISTINE; 0.03 U/MIN PRN Reason: Protocol Last Admin: 12/24/17 05:51 Dose: 9.09 mls/hr Acetaminophen (Ofirmev) 1,000 mg in 100 mls @ 400 mls/hr IVPB Q6H PRN PRN Reason: fever >100.4 Stop: 12/26/17 03:53 Last Admin: 12/24/17 04:17 Dose: 400 mls/hr Vancomycin HCl (Vancomycin 1gm) 1 gm in 250 mls @ 167 mls/hr IVPB Q12 [facility] PRN Reason: Protocol Last Admin: 12/24/17 11:00 Dose: 167 mls/hr Cefepime HCl (Maxipime 2gm) 2 gm in 100 mls @ 100 mls/hr IVPB Q8 [facility] PRN Reason: Protocol Stop: 12/29/17 09:16 Last Admin: 12/24/17 14:23 Dose: 100 mls/hr Ipratropium [place] (Atrovent) 0.5 mg IH [id number] [facility] Last Admin: 12/24/17 13:51 Dose: 0.5 mg Ipratropium [place] (Atrovent) 0.5 mg IH Q2H PRN PRN Reason: Shortness of Breath Levalbuterol HCl (Xopenex) 0.63 mg IH Q2 PRN PRN Reason: Shortness of Breath Levalbuterol HCl (Xopenex) 0.63 mg IH 0200,0800,1400,2000 [facility] Last Admin: 12/24/17 13:51 Dose: 0.63 mg Ondansetron HCl (Zofran Inj) 4 mg IVP Q4H PRN PRN Reason: Nausea/Vomiting Pantoprazole Sodium (Protonix Inj) 40 mg IVP Q12 [facility] Last Admin: 12/24/17 09:48 Dose: 40 mg Polyethylene Glycol (Miralax) 17 gm PO DAILY [facility] Last Admin: 12/24/17 09:47 Dose: 17 gm Physical Exam - Constitutional Appears: Non-toxic, No Acute Distress - Head Exam Head Exam: ATRAUMATIC, NORMAL INSPECTION, NORMOCEPHALIC - Eye Exam Eye Exam: EOMI, Normal appearance - ENT Exam ENT Exam: Mucous Membranes Dry (ET in place) - Neck Exam Additional comments: Left IJ in place - Respiratory Exam Respiratory Exam: Rhonchi (diffuse), Wheezes (diffuse), NORMAL BREATHING PATTERN (on mechanical vent). absent: Accessory Muscle Use, Chest Wall Tenderness, Clear to Auscultation Bilateral - Cardiovascular Exam Cardiovascular Exam: REGULAR RHYTHM, +S1, +S2 - GI/Abdominal Exam GI & Abdominal Exam: Normal Bowel Sounds, Soft. absent: Tenderness Additional comments: well healed midline scar suprapubic to infra-umbilical - Extremities Exam Extremities exam: Positive for: normal inspection - Neurological Exam Additional comments: unable to assess, intubated - Psychiatric Exam Additional comments: Unable to assess, intubated - Skin Skin Exam: Dry, Intact, Normal Color, Warm Results - Vital Signs Recent Vital Signs: Last Vital Signs Temp 99.7 F H 12/23/17 20:45 Pulse 94 H 12/23/17 22:00 Resp 46 H 12/23/17 05:05 BP 111/70 12/23/17 20:45 Pulse Ox 100 12/23/17 20:45 - Labs Result Diagrams: 12/24/17 06:50 12/24/17 06:50 Labs: Laboratory Results - last 24 hr 12/23/17 12/23/17 12/23/17 17:00 18:01 18:15 WBC RBC Hgb Hct MCV MCH MCHC RDW Plt Count MPV Gran % Lymph % (Auto) [place] % (Auto) Eos % (Auto) Baso % (Auto) Gran # Lymph # (Auto) [place] # (Auto) Eos # (Auto) Baso # (Auto) pCO2 44 pO2 113.0 H HCO3 27.3 ABG pH 7.40 ABG Total CO2 28.7 H ABG O2 Saturation 99.9 H ABG O2 Content ABG Base Excess 2.0 ABG Hemoglobin ABG Carboxyhemoglobin POC ABG HHb (Measured) ABG Methemoglobin ABG O2 Capacity ABG Potassium 3.0 L Hgb O2 Saturation Sodium 141.0 143 Chloride 111.0 H 100 Glucose 143 H Lactate 1.8 Mechanical Rate 20 FiO2 40.0 Tidal Volume 350 PEEP 5 Potassium 3.5 L Carbon Dioxide 34 H Anion Gap 12 BUN 19 Creatinine 0.4 L Est GFR ( Amer) > 60 Est GFR (Non-Af Amer) > 60 POC Glucose (mg/dL) 147 H Random Glucose 128 H Calcium 7.2 L Magnesium Total Bilirubin 0.4 Direct Bilirubin AST 23 ALT 76 H Alkaline Phosphatase 52 Troponin I < 0.01 D Total Protein 5.1 L Albumin 2.8 L Globulin 2.3 Albumin/Globulin Ratio 1.2 Procalcitonin Arterial Blood Potassium 3.0 L 12/23/17 12/23/17 12/23/17 18:15 19:15 23:55 WBC 12.8 H D RBC 4.03 Hgb 11.8 L D Hct 37.7 MCV 93.5 MCH 29.3 MCHC 31.3 RDW 13.5 Plt Count 205 MPV 11.0 Gran % 82.4 H Lymph % (Auto) 12.2 L [place] % (Auto) 5.4 Eos % (Auto) 0.0 L Baso % (Auto) 0.0 Gran # 10.54 H Lymph # (Auto) 1.6 [place] # (Auto) 0.7 H Eos # (Auto) 0.0 Baso # (Auto) 0.00 pCO2 pO2 HCO3 ABG pH ABG Total CO2 ABG O2 Saturation ABG O2 Content ABG Base Excess ABG Hemoglobin ABG Carboxyhemoglobin POC ABG HHb (Measured) ABG Methemoglobin ABG O2 Capacity ABG Potassium Hgb O2 Saturation Sodium Chloride Glucose Lactate Mechanical Rate FiO2 Tidal Volume PEEP Potassium Carbon Dioxide Anion Gap BUN Creatinine Est GFR ( Amer) Est GFR (Non-Af Amer) POC Glucose (mg/dL) 94 Random Glucose Calcium Magnesium Total Bilirubin Direct Bilirubin AST ALT Alkaline Phosphatase Troponin I Total Protein Albumin Globulin Albumin/Globulin Ratio Procalcitonin 0.07 L Arterial Blood Potassium 12/24/17 12/24/17 12/24/17 05:00 06:11 06:50 WBC RBC Hgb Hct MCV MCH MCHC RDW Plt Count MPV Gran % Lymph % (Auto) [place] % (Auto) Eos % (Auto) Baso % (Auto) Gran # Lymph # (Auto) [place] # (Auto) Eos # (Auto) Baso # (Auto) pCO2 34 L pO2 95.0 HCO3 30.4 H ABG pH 7.56 H ABG Total CO2 31.4 H ABG O2 Saturation 99.8 H ABG O2 Content 15.4 ABG Base Excess 7.9 H ABG Hemoglobin 11.2 L ABG Carboxyhemoglobin 1.6 H POC ABG HHb (Measured) 0.2 ABG Methemoglobin 0.9 ABG O2 Capacity 15.4 L ABG Potassium Hgb O2 Saturation 97.3 Sodium 139 Chloride 99 Glucose Lactate Mechanical Rate FiO2 40.0 Tidal Volume PEEP Potassium 3.4 L Carbon Dioxide 32 Anion Gap 12 BUN 15 Creatinine 0.5 L Est GFR ( Amer) > 60 Est GFR (Non-Af Amer) > 60 POC Glucose (mg/dL) 79 Random Glucose 92 Calcium 8.1 L Magnesium 1.8 Total Bilirubin 0.8 Direct Bilirubin 0.2 AST 32 ALT 72 H Alkaline Phosphatase 56 Troponin I 0.30 H* D Total Protein 5.9 Albumin 3.3 Globulin 2.5 Albumin/Globulin Ratio 1.3 Procalcitonin Arterial Blood Potassium 12/24/17 06:50 WBC 5.8 D RBC 4.04 Hgb 11.8 L Hct 36.8 MCV 91.1 MCH 29.2 MCHC 32.1 RDW 13.5 Plt Count 146 MPV 11.0 Gran % 84.1 H Lymph % (Auto) 10.2 L [place] % (Auto) 5.7 Eos % (Auto) 0.0 L Baso % (Auto) 0.0 Gran # 4.89 Lymph # (Auto) 0.6 L [place] # (Auto) 0.3 Eos # (Auto) 0.0 Baso # (Auto) 0.00 pCO2 pO2 HCO3 ABG pH ABG Total CO2 ABG O2 Saturation ABG O2 Content ABG Base Excess ABG Hemoglobin ABG Carboxyhemoglobin POC ABG HHb (Measured) ABG Methemoglobin ABG O2 Capacity ABG Potassium Hgb O2 Saturation Sodium Chloride Glucose Lactate Mechanical Rate FiO2 Tidal Volume PEEP Potassium Carbon Dioxide Anion Gap BUN Creatinine Est GFR ( Amer) Est GFR (Non-Af Amer) POC Glucose (mg/dL) Random Glucose Calcium Magnesium Total Bilirubin Direct Bilirubin AST ALT Alkaline Phosphatase Troponin I Total Protein Albumin Globulin Albumin/Globulin Ratio Procalcitonin Arterial Blood Potassium Assessment & Plan - Assessment and Plan (Free Text) Assessment: 72F w/PMH sig for COPD exacerbation s/p re-intubation due to hypercapneic respiratory failure consulted for tracheostomy placement Plan: Family to decide about whether they want to proceed with tracheostomy Cont attempts to wean off mechanical vent Further recommendations after attending evaluation/family decision Will DW Dr. Kimberli Meek, PGY-1 - Date & Time Date: 12/24/17 Time: 14:40 <Macario Ag - Last Filed: 12/24/17 17:21> Meds - Medications Medications: Current Medications Acetaminophen (Tylenol 650 Mg Supp) 650 mg RC Q6H PRN PRN Reason: TEMP>=99.5F Last Admin: 12/17/17 08:30 Dose: 650 mg Aspirin (Aspirin) 325 mg PO DAILY [facility] Last Admin: 12/24/17 10:10 Dose: 325 mg Atorvastatin Calcium (Lipitor) 10 mg PO DIN [facility] Last Admin: 12/24/17 17:06 Dose: 10 mg Budesonide (Pulmicort Respules) 1 mg IH [id number] [facility] Last Admin: 12/24/17 07:43 Dose: 0.5 mg Doxycycline Hyclate (Doryx) 100 mg PO Q12 [facility] Last Admin: 12/24/17 09:44 Dose: Not Given Enoxaparin Sodium (Lovenox) 40 mg SC DAILY [facility] PRN Reason: Protocol Last Admin: 12/24/17 09:46 Dose: 40 mg Ergocalciferol (Drisdol 50,000 Intl Units Cap) 1 cap PO Q7D [facility] Last Admin: 12/20/17 10:07 Dose: 1 cap Hydralazine HCl (Apresoline) 10 mg IVP Q6 PRN PRN Reason: Systolic Blood Pressure Last Admin: 12/23/17 14:30 Dose: 10 mg Hydrocortisone Sodium Succinate (Solu-Cortef) 50 mg IVP Q6 [facility] Last Admin: 12/24/17 17:05 Dose: 50 mg Midazolam 100 mg/100ml in NS (Midazolam 100 Mg/100ml In Ns) 100 mg in 100 mls @ 1 mls/hr IV .Q24H PRN; Protocol; 1 MG/HR PRN Reason: Sedation Last Titration: 12/24/17 11:45 Dose: 0 mg/hr, 0 mls/hr NOREPINEPHRINE BIT/0.9 % NACL (Levophed 4 Mg/ 250 Ml Ns Premixed) 4 mg in 250 mls @ 15 mls/hr IV .[id number] PRN; Protocol; 4 MCG/MIN PRN Reason: TITRATE PER MD ORDER Last Titration: 12/24/17 07:38 Dose: 0 mcg/min, 0 mls/hr Sodium Chloride (Sodium Chloride 0.9%) 1,000 mls @ 80 mls/hr IV .[id number] [facility] Last Admin: 12/24/17 05:43 Dose: 80 mls/hr Vasopressin 20 units/ Dextrose 101 mls @ 9.09 mls/hr IV .Q11H7M [facility]ST[facility]; 0.03 U/MIN PRN Reason: Protocol Last Admin: 12/24/17 16:31 Dose: 9.09 mls/hr Acetaminophen (Ofirmev) 1,000 mg in 100 mls @ 400 mls/hr IVPB Q6H PRN PRN Reason: fever >100.4 Stop: 12/26/17 03:53 Last Admin: 12/24/17 04:17 Dose: 400 mls/hr Vancomycin HCl (Vancomycin 1gm) 1 gm in 250 mls @ 167 mls/hr IVPB Q12 [facility] PRN Reason: Protocol Last Admin: 12/24/17 11:00 Dose: 167 mls/hr Cefepime HCl (Maxipime 2gm) 2 gm in 100 mls @ 100 mls/hr IVPB Q8 [facility] PRN Reason: Protocol Stop: 12/29/17 09:16 Last Admin: 12/24/17 14:23 Dose: 100 mls/hr Ipratropium [place] (Atrovent) 0.5 mg IH [id number] [facility] Last Admin: 12/24/17 13:51 Dose: 0.5 mg Ipratropium [place] (Atrovent) 0.5 mg IH Q2H PRN PRN Reason: Shortness of Breath Levalbuterol HCl (Xopenex) 0.63 mg IH Q2 PRN PRN Reason: Shortness of Breath Levalbuterol HCl (Xopenex) 0.63 mg IH 0200,0800,1400,2000 [facility] Last Admin: 12/24/17 13:51 Dose: 0.63 mg Ondansetron HCl (Zofran Inj) 4 mg IVP Q4H PRN PRN Reason: Nausea/Vomiting Pantoprazole Sodium (Protonix Inj) 40 mg IVP Q12 [facility] Last Admin: 12/24/17 09:48 Dose: 40 mg Polyethylene Glycol (Miralax) 17 gm PO DAILY [facility] Last Admin: 12/24/17 09:47 Dose: 17 gm Results - Vital Signs Recent Vital Signs: Last Vital Signs Temp 99 F 12/24/17 16:00 Pulse 88 12/24/17 16:00 Resp 16 12/24/17 16:00 BP 126/61 12/24/17 16:31 Pulse Ox 100 06/06/18 16:00 - Labs Result Diagrams: 12/24/17 06:50 12/24/17 06:50 Labs: Laboratory Results - last 24 hr 12/23/17 12/23/17 12/23/17 18:01 18:15 18:15 WBC RBC Hgb Hct MCV MCH MCHC RDW Plt Count MPV Gran % Lymph % (Auto) [place] % (Auto) Eos % (Auto) Baso % (Auto) Gran # Lymph # (Auto) [place] # (Auto) Eos # (Auto) Baso # (Auto) pCO2 pO2 HCO3 ABG pH ABG Total CO2 ABG O2 Saturation ABG O2 Content ABG Base Excess ABG Hemoglobin ABG Carboxyhemoglobin POC ABG HHb (Measured) ABG Methemoglobin ABG O2 Capacity Hgb O2 Saturation FiO2 Sodium 143 Potassium 3.5 L Chloride 100 Carbon Dioxide 34 H Anion Gap 12 BUN 19 Creatinine 0.4 L Est GFR ( Amer) > 60 Est GFR (Non-Af Amer) > 60 POC Glucose (mg/dL) 147 H Random Glucose 128 H Calcium 7.2 L Magnesium Total Bilirubin 0.4 Direct Bilirubin AST 23 ALT 76 H Alkaline Phosphatase 52 Troponin I < 0.01 D Total Protein 5.1 L Albumin 2.8 L Globulin 2.3 Albumin/Globulin Ratio 1.2 Procalcitonin 0.07 L 12/23/17 12/23/17 12/24/17 19:15 23:55 05:00 WBC 12.8 H D RBC 4.03 Hgb 11.8 L D Hct 37.7 MCV 93.5 MCH 29.3 MCHC 31.3 RDW 13.5 Plt Count 205 MPV 11.0 Gran % 82.4 H Lymph % (Auto) 12.2 L [place] % (Auto) 5.4 Eos % (Auto) 0.0 L Baso % (Auto) 0.0 Gran # 10.54 H Lymph # (Auto) 1.6 [place] # (Auto) 0.7 H Eos # (Auto) 0.0 Baso # (Auto) 0.00 pCO2 34 L pO2 95.0 HCO3 30.4 H ABG pH 7.56 H ABG Total CO2 31.4 H ABG O2 Saturation 99.8 H ABG O2 Content 15.4 ABG Base Excess 7.9 H ABG Hemoglobin 11.2 L ABG Carboxyhemoglobin 1.6 H POC ABG HHb (Measured) 0.2 ABG Methemoglobin 0.9 ABG O2 Capacity 15.4 L Hgb O2 Saturation 97.3 FiO2 40.0 Sodium Potassium Chloride Carbon Dioxide Anion Gap BUN Creatinine Est GFR ( Amer) Est GFR (Non-Af Amer) POC Glucose (mg/dL) 94 Random Glucose Calcium Magnesium Total Bilirubin Direct Bilirubin AST ALT Alkaline Phosphatase Troponin I Total Protein Albumin Globulin Albumin/Globulin Ratio Procalcitonin 12/24/17 12/24/17 12/24/17 06:11 06:30 06:50 WBC RBC Hgb Hct MCV MCH MCHC RDW Plt Count MPV Gran % Lymph % (Auto) [place] % (Auto) Eos % (Auto) Baso % (Auto) Gran # Lymph # (Auto) [place] # (Auto) Eos # (Auto) Baso # (Auto) pCO2 pO2 HCO3 ABG pH ABG Total CO2 ABG O2 Saturation ABG O2 Content ABG Base Excess ABG Hemoglobin ABG Carboxyhemoglobin POC ABG HHb (Measured) ABG Methemoglobin ABG O2 Capacity Hgb O2 Saturation FiO2 Sodium 139 Potassium 3.4 L Chloride 99 Carbon Dioxide 32 Anion Gap 12 BUN 15 Creatinine 0.5 L Est GFR ( Amer) > 60 Est GFR (Non-Af Amer) > 60 POC Glucose (mg/dL) 79 Random Glucose 92 Calcium 8.1 L Magnesium 1.8 Total Bilirubin 0.8 Direct Bilirubin 0.2 AST 32 ALT 72 H Alkaline Phosphatase 56 Troponin I 0.30 H* D Total Protein 5.9 Albumin 3.3 Globulin 2.5 Albumin/Globulin Ratio 1.3 Procalcitonin 0.26 12/24/17 06:50 WBC 5.8 D RBC 4.04 Hgb 11.8 L Hct 36.8 MCV 91.1 MCH 29.2 MCHC 32.1 RDW 13.5 Plt Count 146 MPV 11.0 Gran % 84.1 H Lymph % (Auto) 10.2 L [place] % (Auto) 5.7 Eos % (Auto) 0.0 L Baso % (Auto) 0.0 Gran # 4.89 Lymph # (Auto) 0.6 L [place] # (Auto) 0.3 Eos # (Auto) 0.0 Baso # (Auto) 0.00 pCO2 pO2 HCO3 ABG pH ABG Total CO2 ABG O2 Saturation ABG O2 Content ABG Base Excess ABG Hemoglobin ABG Carboxyhemoglobin POC ABG HHb (Measured) ABG Methemoglobin ABG O2 Capacity Hgb O2 Saturation FiO2 Sodium Potassium Chloride Carbon Dioxide Anion Gap BUN Creatinine Est GFR ( Amer) Est GFR (Non-Af Amer) POC Glucose (mg/dL) Random Glucose Calcium Magnesium Total Bilirubin Direct Bilirubin AST ALT Alkaline Phosphatase Troponin I Total Protein Albumin Globulin Albumin/Globulin Ratio Procalcitonin Assessment & Plan - Assessment and Plan (Free Text) Plan: Pt was evaluated with resident and family members at bedside
--- NOTE | 2017-12-24 16:10 | PN ---
DATE: 12/24/2017 CARDIOLOGY FOLLOWUP SUBJECTIVE: The patient was reintubated after respiratory failure. PHYSICAL EXAMINATION: GENERAL: Currently, the patient is awake, alert on a ventilator. VITAL SIGNS: Blood pressure is 111/70, the heart rate is in the 90s. NECK: Negative JVD. LUNGS: No rales noted. HEART: Reveals S1, S2. EXTREMITIES: Without edema. LABORATORY DATA: The troponins bumped up to 0.3. BUN and creatinine are unremarkable. Hemoglobin is 11.8, white count is 5.8. IMPRESSION: 1. Respiratory failure. 2. Left ventricular hypertrophy. 3. Anemia. 4. Atelectasis and pneumonia. PLAN: Given these findings, there is no adequate explanation for why the patient is gone back to respiratory failure and requiring a respirator. I have discussed this with the patient and family. We will proceed to cardiac catheterization in the morning. Marcelo Parry MD
[2017-12-25] MEDS: Levalbuterol 0.63 MG/3 ML Inhal Soln UD IH SCH ×4 (02:30→20:55)
[2017-12-25] MEDS: Ipratropium 0.02% Inhal Soln (0.5 mg/2.5 ml) UD IH SCH ×4 (02:30→20:54)
[2017-12-25 05:24] LABS: GRAN # 2.48 (1.4-6.5); GRAN % 60.3 % (50.0-68.0); HEMOGLOBIN 10.5 g/dL (12.0-16.0); LYMPH # 1.1 (1.2-3.4); LYMPH % 26.8 % (22.0-35.0); MEAN CELL VOLUME 88.2 fl (80.0-105.0); MEAN CORPUSCULAR HEMOGLOBIN 29.6 pg (25.0-35.0); MEAN CORPUSCULAR HGB CONC 33.5 g/dl (31.0-37.0); MONO # 0.5 (0.1-0.6); MONO % 12.9 % (1.0-6.0); RBC 3.55 10^6/uL (3.5-6.1); RED CELL DISTRIBUTION WIDTH 14.1 % (11.5-14.5); WHITE BLOOD COUNT 4.1 10^3/ul (4.5-11.0)
[2017-12-25] MEDS: Cefepime IV 2 gm in NS 2 GM/100 ML BAG IVPB SCH ×3 (05:42→22:02)
[2017-12-25 05:47] LABS: ALB/GLOB RATIO 1.4 (1.1-1.8); ALBUMIN 3.2 g/dL (3.0-4.8); ALT/SGPT 61 U/L (7-56); AST/SGOT 25 U/L (14-36); BILIRUBIN,DIRECT 0.2 mg/dL (0.0-0.4); BLOOD UREA NITROGEN 19 mg/dL (7-21); CALCIUM 7.7 mg/dL (8.4-10.5); GFR AFRICAN-AMERICAN > 60; GFR NON-AFRICAN AMERICAN > 60
[2017-12-25 06:05] LABS: TROPONIN I 0.16 ng/mL
[2017-12-25 06:32] LABS: ARTERIAL BLOOD GAS HCO3 26.3 mmol/L (21-28); ARTERIAL BLOOD GAS HEMOGLOBIN 10.2 g/dL (11.7-17.4); ARTERIAL BLOOD GAS O2 CAPACITY 14.1 mL/dl (16-24); ARTERIAL BLOOD GAS O2 CONTENT 14.1 ML/dl (15-23); ARTERIAL BLOOD GAS O2 SAT 99.9 % (95-98); ARTERIAL BLOOD GAS PCO2 37 mm/Hg (35-45); ARTERIAL BLOOD GAS PH 7.46 (7.35-7.45); ARTERIAL BLOOD GAS TCO2 27.4 mmol.L (22-28)
[2017-12-25] MEDS ORDERED: Magnesium 2 gm/50 ml NS 2 GM/50 ML BAG IVPB ONE ×2 (07:07→09:00)
[2017-12-25] MEDS ORDERED: Nitroglycerin 50mg in D5W 50 MG/250 ML BOTTLE IV ONE (07:37)
[2017-12-25] MEDS ORDERED: Iodixanol 320 MG/ML 200 ML BOTTLE IV ONE (07:37)
[2017-12-25] MEDS ORDERED: Iodixanol 320 MG/ML 100 ML BOTTLE IV ONE (07:37)
[2017-12-25] MEDS ORDERED: Lidocaine 2% Inj (20ml) ONE (07:37)
[2017-12-25] MEDS ORDERED: Iohexol 350mgl/ml 50 ML ONE (07:37)
[2017-12-25] MEDS ORDERED: Midazolam 2 MG/2 ML VIAL ONE ×2 (07:52→07:55)
--- NOTE | 2017-12-25 08:20 | PN ---
DATE: 12/25/2017(620am-710am) PULMONARY NOTE SUBJECTIVE: The patient remains on the ventilator. She is much more awake and alert this morning. OBJECTIVE: VITAL SIGNS: Temperature is 99.5, pulse 87, respiratory rate 16, blood pressure 105/66. HEENT: Normocephalic, atraumatic. No JVD. CARDIOVASCULAR: Systolic ejection murmur at the lower left sternal border. No S3 gallop. LUNGS: Decreased breath sounds at the bases. Less rhonchi. No wheezing. EXTREMITIES: No clubbing, cyanosis, or edema. Calves are nontender to palpation. GASTROINTESTINAL: Abdomen is soft, nontender and nondistended. Bowel sounds are positive. SKIN: No acute rash. NEUROLOGIC: Exam limited at the present time. PERTINENT LABORATORY DATA: Chest x-ray was done this morning and reviewed. There are minimal bibasilar changes noted. Arterial blood gas was ordered for the morning - not in the computer at the time of this dictation. IMPRESSION: 1. Respiratory failure. 2. Left lower lobe pneumonia. 3. Sepsis syndrome. 4. Hypotension, resolving. 5. Mild anemia. 6. Positive troponin. PLAN: The patient remains intubated. However, she is much more awake and alert this morning. She is currently on CPAP and pressure support. I did discuss the case with the night nurse at length. The night nurse informed me that the patient had a good night. I did review the chest x-ray as above. The chest x-ray shows minimal bibasilar changes. I also noted the CT scan of the chest in yesterday's assessment. Again, we are awaiting a repeat arterial blood gas for the morning. I would continue with the antibiotic coverage as per Infectious Disease. Input by Dr. Francisco is noted. Temperatures are now resolving. Leukocytosis has also resolved. Inputs by Cardiology and ENT are also noted. The clinical status of the patient is certainly improved - compared to a few days ago. However, her overall status/prognosis does remain very guarded. I will discuss the above with the entire ICU team in the next few moments. I will also discuss the above with the attending physician. Edin Aguila MD [facility] # [id number] MIGUEL
[2017-12-25] MEDS ORDERED: Sodium Chloride 0.9% 1,000 ML IV SCH (08:26)
--- NOTE | 2017-12-25 08:33 | RAD ---
HISTORY: f/u COMPARISON: Portable chest 12/24/2017. FINDINGS: LUNGS: Endotracheal and nasogastric tubes are unchanged in position as well left central venous line. Persistent left basilar infiltrate atelectasis identified with trace of pleural effusion question blunting left costophrenic sulcus in the interval. Borderline right basilar airspace disease. No right pleural effusion. No pneumothorax bilaterally. CARDIOVASCULAR: Mild cardiomegaly stable. Borderline pulmonary vascular congestion. OSSEOUS STRUCTURES: No significant abnormalities. VISUALIZED UPPER ABDOMEN: Normal. OTHER FINDINGS: None. IMPRESSION: Persistent left basilar airspace disease in trace of pleural effusion is now identified. Borderline patchy airspace disease right base. Borderline pulmonary vascular congestion.
[2017-12-25] MEDS: Budesonide 0.5 mg/2 ml Inhal Susp UD IH SCH ×2 (09:02→20:54)
--- NOTE | 2017-12-25 09:49 | CP.PCM.PN ---
<Nu Sandoval - Last Filed: 12/25/17 15:09> Subjective - Date & Time of Evaluation Date of Evaluation: 12/25/17 Time of Evaluation: 09:47 - Subjective Subjective: Medicine Progress Note - Dr Rodríguez Service: Patient seen and examined at bedside. Patient is intubated, off sedation and going for cardiac cath this morning. Levophed and Vasopressin have been titrated off. Patient is awake and following commands. ROS not obtained. Objective - Vital Signs/Intake and Output Vital Signs (last 24 hours): Temp Pulse Resp BP Pulse Ox 99.5 F 62 16 105/66 98 12/25/17 06:00 12/25/17 06:00 12/24/17 16:00 12/25/17 06:00 12/25/17 06:00 Intake and Output: 12/25/17 12/25/17 06:59 18:59 Intake Total 1350 Output Total 675 675 Balance -675 675 - Medications Medications: Current Medications Acetaminophen (Tylenol 650 Mg Supp) 650 mg RC Q6H PRN PRN Reason: TEMP>=99.5F Last Admin: 12/17/17 08:30 Dose: 650 mg Aspirin (Aspirin) 325 mg PO DAILY [facility] Last Admin: 12/24/17 10:10 Dose: 325 mg Atorvastatin Calcium (Lipitor) 10 mg PO DIN [facility] Last Admin: 12/24/17 17:06 Dose: 10 mg Budesonide (Pulmicort Respules) 1 mg IH [id number] [facility] Last Admin: 12/25/17 09:02 Dose: 1 mg Doxycycline Hyclate (Doryx) 100 mg PO Q12 [facility] Last Admin: 12/24/17 21:54 Dose: 100 mg Enoxaparin Sodium (Lovenox) 40 mg SC DAILY [facility] PRN Reason: Protocol Last Admin: 12/24/17 09:46 Dose: 40 mg Ergocalciferol (Drisdol 50,000 Intl Units Cap) 1 cap PO Q7D [facility] Last Admin: 12/20/17 10:07 Dose: 1 cap Hydralazine HCl (Apresoline) 10 mg IVP Q6 PRN PRN Reason: Systolic Blood Pressure Last Admin: 12/23/17 14:30 Dose: 10 mg Hydrocortisone Sodium Succinate (Solu-Cortef) 50 mg IVP Q6 [facility] Last Admin: 12/25/17 05:44 Dose: 50 mg Midazolam 100 mg/100ml in NS (Midazolam 100 Mg/100ml In Ns) 100 mg in 100 mls @ 1 mls/hr IV .Q24H PRN; Protocol; 1 MG/HR PRN Reason: Sedation Last Titration: 12/24/17 11:45 Dose: 0 mg/hr, 0 mls/hr NOREPINEPHRINE BIT/0.9 % NACL (Levophed 4 Mg/ 250 Ml Ns Premixed) 4 mg in 250 mls @ 15 mls/hr IV .[id number] PRN; Protocol; 4 MCG/MIN PRN Reason: TITRATE PER MD ORDER Last Titration: 12/24/17 07:38 Dose: 0 mcg/min, 0 mls/hr Vasopressin 20 units/ Dextrose 101 mls @ 9.09 mls/hr IV .Q11H7M KRISTINE; 0.03 U/MIN PRN Reason: Protocol Last Admin: 12/24/17 16:31 Dose: 9.09 mls/hr Acetaminophen (Ofirmev) 1,000 mg in 100 mls @ 400 mls/hr IVPB Q6H PRN PRN Reason: fever >100.4 Stop: 12/26/17 03:53 Last Admin: 12/24/17 22:07 Dose: 400 mls/hr Vancomycin HCl (Vancomycin 1gm) 1 gm in 250 mls @ 167 mls/hr IVPB Q12 [facility] PRN Reason: Protocol Last Admin: 12/24/17 21:51 Dose: 167 mls/hr Cefepime HCl (Maxipime 2gm) 2 gm in 100 mls @ 100 mls/hr IVPB Q8 [facility] PRN Reason: Protocol Stop: 12/29/17 09:16 Last Admin: 12/25/17 05:42 Dose: 100 mls/hr Potassium Chloride (Potassium Chloride 20 Meq/100 Ml) 20 meq in 100 mls @ 50 mls/hr IVPB Q2H [facility] Stop: 12/25/17 10:59 Last Admin: 12/25/17 06:57 Dose: 50 mls/hr Magnesium 2 gm/50 ml NS (Magnesium Sulfate 2 Gm/50 Ml Ns) 2 gm in 50 mls @ 50 mls/hr IVPB ONCE ONE Stop: 12/25/17 09:59 Sodium Chloride (Sodium Chloride 0.9%) 1,000 mls @ 100 mls/hr IV .Q10H [facility] Stop: 12/25/17 15:00 Ipratropium [place] (Atrovent) 0.5 mg IH [id number] [facility] Last Admin: 12/25/17 08:58 Dose: 0.5 mg Ipratropium [place] (Atrovent) 0.5 mg IH Q2H PRN PRN Reason: Shortness of Breath Levalbuterol HCl (Xopenex) 0.63 mg IH Q2 PRN PRN Reason: Shortness of Breath Levalbuterol HCl (Xopenex) 0.63 mg IH 0200,0800,1400,2000 [facility] Last Admin: 12/25/17 08:59 Dose: 0.63 mg Ondansetron HCl (Zofran Inj) 4 mg IVP Q4H PRN PRN Reason: Nausea/Vomiting Pantoprazole Sodium (Protonix Inj) 40 mg IVP Q12 [facility] Last Admin: 12/24/17 21:53 Dose: 40 mg Polyethylene Glycol (Miralax) 17 gm PO DAILY [facility] Last Admin: 12/24/17 09:47 Dose: 17 gm Potassium Chloride (Potassium Chloride Oral Soln) 40 meq PO Q4H [facility] Stop: 12/25/17 15:16 - Labs Labs: 12/25/17 05:15 12/25/17 05:15 PT 13.6 SECONDS (9.4-12.5) H 12/17/17 06:00 INR 1.18 (0.93-1.08) H 12/17/17 06:00 APTT 23.2 Seconds (25.1-36.5) L 12/17/17 06:00 - Additional Findings Additional findings: - Constitutional Appears: Chronically Ill - Head Exam Head Exam: ATRAUMATIC, NORMAL INSPECTION - Eye Exam Eye Exam: Normal appearance - ENT Exam Additional comments: +ETT and OGT - Neck Exam Additional comments: Left TLC - Respiratory Exam Respiratory Exam: Decreased Breath Sounds Additional comments: +ventilatory breath sounds - Cardiovascular Exam Cardiovascular Exam: REGULAR RHYTHM, +S1, +S2 - GI/Abdominal Exam GI & Abdominal Exam: Soft. absent: Guarding, Rigid, Tenderness - Extremities Exam Additional comments: +SCDs - Neurological Exam Neurological Exam: Awake and alert - Skin Skin Exam: Dry, Normal Color, Warm Assessment and Plan - Assessment and Plan (Free Text) Assessment: A/P: Patient is a 72 yo AA F with PMH of COPD (with prior intubations for exacerbations), asthma, HTN, and pulmonary HTN [place] [facility] [place] breath, found to be in hypercarbic respiratory failure, failing Bipap in ED, then intubated and placed on mechanical ventilation. She is s/p extubation. Patient was re-intubated 2/2 to respiratory acidosis and hypercarbia. Intubated and sedated at this time. Plan: Acute exacerbation of COPD with Acute Hypoxic respiratory failure with hypercapnia -Intubated and off sedation -Weaning trial prn -CT head showed non specific white matter changes (see full report) -CT chest showed bibasilar atelectasis, possible left lung infiltrate, superimposed pneumonia cannot be excluded (see full report) -Solucortef 50mg IVP Q8H -Xopenex and Ipratroprium Q6H [facility]RISTINE, Q2H PRN SOB -Budesanide 1mg Q12H KRISTINE -Pulmonary on consult, help appreciated -ENT on consult, for possible tracheostomy, help appreciated Severe Sepsis 2/2 HCAP -Intubated and off sedation -Leukocytosis improving -Antibiotics: Doxycycline 100mg Q12, Vancomycin 1gm Q12H, Cefepime 2gm Q8H -F/U blood cultures, urine cultures, sputum cultures -ID on consult, help appreciated Altered Mental Status -Patient with intermittent periods of confusion, yesterday -Now intubated and off sedation -Likely due to Toxic metabolic encephalopathy 2/2 chronic CO2 retention -Head CT showed non specific white matter changes (see full report) -Neurology on consult, help appreciated -MRI of brain ordered Elevated Blood Pressures -Patient was hypotensive -Levophed and Vasopressin titrated off -Continue to monitor Relapsing recurrent hypercarbia and respiratory acidosis -Intubated and off sedation -ABG reviewed this morning -Continue to Monitor daily ABGs -Pulmonary on consult, help appreciated Elevated Troponin -Troponin 0.30 -> 0.16 -Concern for possible NSTEMI -Patient for cardiac cath this morning -Cardiology on consult, help appreciated Diastolic CHF, Moderate Mitral Regurgitation -Echo showed normal LVEF with Moderate Mitral Regurgitation -Cardiology consulted, help appreciated -Continue ASA and Lipitor Transaminitis -LFTs trending down, Hep panel negative -Will continue to monitor Hypokalemia -Repleted -Continue to monitor Hypothyroidism -Continue Synthroid 50mcg daily Vitamin D Deficiency -Continue Ergocalciferol 1 tab PO Q7D GI/DVT ppx -Protonix 40mg Q12 IVP -Lovenox 40 SC daily Plan discussed with Dr Marcos Sandoval DO PGY-1 <Garett Rodríguez U - Last Filed: 12/29/17 17:39> Objective - Vital Signs/Intake and Output Vital Signs (last 24 hours): Temp Pulse Resp BP Pulse Ox 98.2 F 87 24 103/60 97 12/29/17 04:00 12/29/17 16:00 12/28/17 07:20 12/29/17 16:00 12/29/17 16:00 Intake and Output: 12/29/17 12/29/17 06:59 18:59 Intake Total 995 Output Total 350 Balance 645 - Medications Medications: Current Medications Acetaminophen (Tylenol 650 Mg Supp) 650 mg RC Q6H PRN PRN Reason: TEMP>=99.5F Last Admin: 12/17/17 08:30 Dose: 650 mg Amiodarone HCl (Cordarone) 200 mg PO Q12 [facility] Last Admin: 12/29/17 09:35 Dose: 200 mg Aspirin (Aspirin) 325 mg PO DAILY [facility] Last Admin: 12/29/17 09:37 Dose: 325 mg Atorvastatin Calcium (Lipitor) 10 mg PO DIN [facility] Last Admin: 12/28/17 17:23 Dose: 10 mg Budesonide (Pulmicort Respules) 1 mg IH [id number] [facility] Last Admin: 12/29/17 07:40 Dose: 1 mg Doxycycline Hyclate (Doryx) 100 mg PO Q12 [facility] Last Admin: 12/29/17 09:36 Dose: 100 mg Enoxaparin Sodium (Lovenox) 40 mg SC DAILY [facility] PRN Reason: Protocol Last Admin: 12/29/17 09:34 Dose: 40 mg Ergocalciferol (Drisdol 50,000 Intl Units Cap) 1 cap PO Q7D [facility] Last Admin: 12/27/17 10:03 Dose: Not Given Hydralazine HCl (Apresoline) 10 mg IVP Q6 PRN PRN Reason: Systolic Blood Pressure Last Admin: 12/23/17 14:30 Dose: 10 mg Hydrocortisone Sodium Succinate (Solu-Cortef) 25 mg IVP DAILY [facility] Last Admin: 12/29/17 09:34 Dose: 25 mg Propofol (Diprivan) 1,000 mg in 100 mls @ 2.252 mls/hr IV .Q24H PRN; Protocol; 5 MCG/KG/MIN PRN Reason: TITRATE PER MD ORDER Last Admin: 12/28/17 03:19 Dose: 22.2 mcg/kg/min, 10 mls/hr Potassium Phosphate 15 mmole/ (Dextrose) 255 mls @ 42.5 mls/hr IVPB Q6H [facility] Stop: 12/29/17 19:59 Last Admin: 12/29/17 16:14 Dose: 42.5 mls/hr Ipratropium [place] (Atrovent) 0.5 mg IH [id number] [facility] Last Admin: 12/29/17 14:02 Dose: 0.5 mg Ipratropium [place] (Atrovent) 0.5 mg IH Q2H PRN PRN Reason: Shortness of Breath Levalbuterol HCl (Xopenex) 0.63 mg IH Q2 PRN PRN Reason: Shortness of Breath Levalbuterol HCl (Xopenex) 0.63 mg IH 0200,0800,1400,2000 [facility] Last Admin: 12/29/17 14:07 Dose: 0.63 mg Ondansetron HCl (Zofran Inj) 4 mg IVP Q4H PRN PRN Reason: Nausea/Vomiting Pantoprazole Sodium (Protonix Inj) 40 mg IVP Q12 [facility] Last Admin: 12/29/17 09:34 Dose: 40 mg Polyethylene Glycol (Miralax) 17 gm PO DAILY [facility] Last Admin: 12/29/17 09:37 Dose: 17 gm - Labs Labs: 12/29/17 06:25 12/29/17 06:25 PT 12.2 SECONDS (9.4-12.5) 12/29/17 06:25 INR 1.06 (0.93-1.08) 12/29/17 06:25 APTT 27.8 Seconds (25.1-36.5) 12/29/17 06:25 Attending/Attestation - Attestation I have personally seen and examined this patient.: Yes I have fully participated in the care of the patient.: Yes I have reviewed all pertinent clinical information, including history, physical exam and plan: Yes Notes (Text): Please see/read my dictated notes.
[2017-12-25] MEDS: Enoxaparin 40 mg Syringe SC SCH (12:07)
[2017-12-25] MEDS: Vancomycin 1gm in NS 250ml 1 GM/250 ML BAG IVPB SCH ×2 (12:07→22:05)
[2017-12-25] MEDS: POLYETHYLENE GLYCOL 3350 17 GM/Dose PACKET PO SCH (12:08)
--- NOTE | 2017-12-25 12:54 | CP.PCM.PN ---
Subjective - Date & Time of Evaluation Date of Evaluation: 12/25/17 Time of Evaluation: 09:10 - Subjective Subjective: Still intubated, no fevers. Still sedated. Objective - Vital Signs/Intake and Output Vital Signs (last 24 hours): Temp Pulse Resp BP Pulse Ox 99.5 F 62 16 105/66 98 12/25/17 06:00 12/25/17 06:00 12/24/17 16:00 12/25/17 06:00 12/25/17 06:00 Intake and Output: 12/25/17 12/25/17 06:59 18:59 Intake Total 1350 Output Total 675 675 Balance -675 675 - Medications Medications: Current Medications Acetaminophen (Tylenol 650 Mg Supp) 650 mg RC Q6H PRN PRN Reason: TEMP>=99.5F Last Admin: 12/17/17 08:30 Dose: 650 mg Aspirin (Aspirin) 325 mg PO DAILY [facility] Last Admin: 12/24/17 10:10 Dose: 325 mg Atorvastatin Calcium (Lipitor) 10 mg PO DIN [facility] Last Admin: 12/24/17 17:06 Dose: 10 mg Budesonide (Pulmicort Respules) 1 mg IH [id number] [facility] Last Admin: 12/24/17 19:55 Dose: 1 mg Doxycycline Hyclate (Doryx) 100 mg PO Q12 [facility] Last Admin: 12/24/17 21:54 Dose: 100 mg Enoxaparin Sodium (Lovenox) 40 mg SC DAILY [facility] PRN Reason: Protocol Last Admin: 12/24/17 09:46 Dose: 40 mg Ergocalciferol (Drisdol 50,000 Intl Units Cap) 1 cap PO Q7D [facility] Last Admin: 12/20/17 10:07 Dose: 1 cap Hydralazine HCl (Apresoline) 10 mg IVP Q6 PRN PRN Reason: Systolic Blood Pressure Last Admin: 12/23/17 14:30 Dose: 10 mg Hydrocortisone Sodium Succinate (Solu-Cortef) 50 mg IVP Q6 [facility] Last Admin: 12/25/17 05:44 Dose: 50 mg Midazolam 100 mg/100ml in NS (Midazolam 100 Mg/100ml In Ns) 100 mg in 100 mls @ 1 mls/hr IV .Q24H PRN; Protocol; 1 MG/HR PRN Reason: Sedation Last Titration: 12/24/17 11:45 Dose: 0 mg/hr, 0 mls/hr NOREPINEPHRINE BIT/0.9 % NACL (Levophed 4 Mg/ 250 Ml Ns Premixed) 4 mg in 250 mls @ 15 mls/hr IV .[id number] PRN; Protocol; 4 MCG/MIN PRN Reason: TITRATE PER MD ORDER Last Titration: 12/24/17 07:38 Dose: 0 mcg/min, 0 mls/hr Vasopressin 20 units/ Dextrose 101 mls @ 9.09 mls/hr IV .Q11H7M KRISTINE; 0.03 U/MIN PRN Reason: Protocol Last Admin: 12/24/17 16:31 Dose: 9.09 mls/hr Acetaminophen (Ofirmev) 1,000 mg in 100 mls @ 400 mls/hr IVPB Q6H PRN PRN Reason: fever >100.4 Stop: 12/26/17 03:53 Last Admin: 12/24/17 22:07 Dose: 400 mls/hr Vancomycin HCl (Vancomycin 1gm) 1 gm in 250 mls @ 167 mls/hr IVPB Q12 [facility] PRN Reason: Protocol Last Admin: 12/24/17 21:51 Dose: 167 mls/hr Cefepime HCl (Maxipime 2gm) 2 gm in 100 mls @ 100 mls/hr IVPB Q8 [facility] PRN Reason: Protocol Stop: 12/29/17 09:16 Last Admin: 12/25/17 05:42 Dose: 100 mls/hr Potassium Chloride (Potassium Chloride 20 Meq/100 Ml) 20 meq in 100 mls @ 50 mls/hr IVPB Q2H [facility] Stop: 12/25/17 10:59 Last Admin: 12/25/17 06:57 Dose: 50 mls/hr Magnesium 2 gm/50 ml NS (Magnesium Sulfate 2 Gm/50 Ml Ns) 2 gm in 50 mls @ 50 mls/hr IVPB ONCE ONE Stop: 12/25/17 09:59 Sodium Chloride (Sodium Chloride 0.9%) 1,000 mls @ 100 mls/hr IV .Q10H [facility] Stop: 12/25/17 15:00 Ipratropium [place] (Atrovent) 0.5 mg IH [id number] [facility] Last Admin: 12/25/17 02:30 Dose: 0.5 mg Ipratropium [place] (Atrovent) 0.5 mg IH Q2H PRN PRN Reason: Shortness of Breath Levalbuterol HCl (Xopenex) 0.63 mg IH Q2 PRN PRN Reason: Shortness of Breath Levalbuterol HCl (Xopenex) 0.63 mg IH 0200,0800,1400,2000 [facility] Last Admin: 12/25/17 02:30 Dose: 0.63 mg Ondansetron HCl (Zofran Inj) 4 mg IVP Q4H PRN PRN Reason: Nausea/Vomiting Pantoprazole Sodium (Protonix Inj) 40 mg IVP Q12 [facility] Last Admin: 12/24/17 21:53 Dose: 40 mg Polyethylene Glycol (Miralax) 17 gm PO DAILY [facility] Last Admin: 12/24/17 09:47 Dose: 17 gm Potassium Chloride (Potassium Chloride Oral Soln) 40 meq PO Q4H [facility] Stop: 12/25/17 15:16 - Labs Labs: 12/25/17 05:15 12/25/17 05:15 PT 13.6 SECONDS (9.4-12.5) H 12/17/17 06:00 INR 1.18 (0.93-1.08) H 12/17/17 06:00 APTT 23.2 Seconds (25.1-36.5) L 12/17/17 06:00 - Constitutional Appears: Other (intubated, sedated) - Head Exam Head Exam: NORMAL INSPECTION - ENT Exam Additional comments: ET tube in place - Respiratory Exam Respiratory Exam: Decreased Breath Sounds - Cardiovascular Exam Cardiovascular Exam: +S1, +S2 - GI/Abdominal Exam GI & Abdominal Exam: Soft. absent: Tenderness Assessment and Plan - Assessment and Plan (Free Text) Plan: Assessment Severe sepsis with ventilator-dependent respiratory failure due to left sided hospital-acquired pneumonia in this patient with acute COPD exacerbation COPD diastolic chronic CHF S/P hysterectomy obesity with BMI 31 Plan continue Vancomycin, Cefepime and Doxycycline day 3 to complete 4-7 days and will follow up blood and sputum cx; reviewed CT chest which shows left base patchy infiltrates; also reviewed Pulmonary evaluation and recommendations will continue to monitor clinically discussed with family
--- NOTE | 2017-12-25 12:55 | CARD ---
APPROVED REPORT EKG Measurement Heart [id number] <Conclusion> RSR PVCs LVH STTW changes c/w ischemia Prolonged QTc
--- NOTE | 2017-12-25 13:09 | CP.CCUPN ---
<Venancio Olivera - Last Filed: 12/25/17 13:01> CCU Subjective - Physician Review Subjective (Free Text): 12/25/17 10:00A Patient seen and examined status post cardiac catheterization. Patient is awake alert and oriented now and is doing well. She writes on pad that she would like to use bathroom and get out of bed. No acute complaints at present. CCU Objective - Vital Signs / Intake & Output Vital Signs (Last 4 hours): Vital Signs Temp Pulse BP Pulse Ox 12/25/17 11:45 99.1 F 68 121/67 100 12/25/17 11:30 99.0 F 64 123/64 100 12/25/17 11:15 99.0 F 68 124/74 100 12/25/17 11:00 98.8 F 72 111/71 98 12/25/17 10:46 98.8 F 66 124/62 100 12/25/17 10:30 99.1 F 78 114/66 99 12/25/17 10:15 99.1 F 59 L 118/67 100 12/25/17 10:00 99.0 F 62 113/67 100 12/25/17 09:45 99.0 F 115/63 100 12/25/17 09:30 99.1 F 75 128/72 100 12/25/17 09:25 99.1 F 67 117/65 99 Intake and Output (Last 8hrs): Intake & Output 12/24/17 12/25/17 12/25/17 22:59 06:59 14:59 Intake Total 1380 1350 Output Total 1375 675 675 Balance 5 -675 675 Intake: IV 1380 1350 Left Antecubital 300 Left Internal Jugular 800 levophed 18 vancomycin 250 1350 versed 12 Output: Urine 1375 675 675 Urethral ([place]) 1375 675 675 Stool 0 Emesis 0 - Physical Exam Head: Positive for: Atraumatic, Normocephalic Pupils: Positive for: PERRL. Negative for: Non-Reactive, Pinpoint Extroacular Muscles: Positive for: EOMI. Negative for: Gaze Palsy, Entrapment Conjunctiva: Positive for: Normal. Negative for: Injected, Icteric Mouth: Positive for: Moist Mucous Membranes, Normal Lips, Normal Tounge. Negative for: Drooling Nose (External): Positive for: Atraumatic. Negative for: Abrasion, Laceration Nose (Internal): Positive for: Normal Inspection, No Active Bleeding. Negative for: Epistaxis Neck: Positive for: Normal Range of Motion. Negative for: Meningeal Signs, MIDLINE TENDERNESS, Paraspinal Tenderness, JVD Respiratory/Chest: Positive for: Clear to Auscultation, Good Air Exchange, Decreased Breath Sounds (mildly decreased breath sounds all bauer, again improved over prior exams). Negative for: Respiratory Distress, Accessory Muscle Use, Wheezes (no further wheezing appreciated on exam today), Rales, Rhonchi Cardiovascular: Positive for: Regular Rate and Rhythm, Normal S1, S2. Negative for: Murmurs, Irregular Rhythm, Tachycardic, Bradycardic Abdomen: Negative for: Tenderness, Distention, Peritoneal Signs Back: Positive for: Normal Inspection. Negative for: CVA Tenderness, Midline Tenderness, Paraspinal Tenderness Upper Extremity: Positive for: Normal Inspection, Normal ROM, NORMAL PULSES. Negative for: Cyanosis, Edema, Tenderness, Swelling, Erythema, Deformity Lower Extremity: Positive for: Normal Inspection, NORMAL PULSES, Normal ROM. Negative for: Edema, CALF TENDERNESS, Cyanosis, Tenderness, Swelling, Erythema, Deformity Neurological: Positive for: GCS=15, Speech Normal, Motor Func Grossly Intact, Normal Sensory Function, Other (following all commands appropriately, no appreciable lethargy/somnolence) Skin: Positive for: Warm, Dry, Normal Color. Negative for: Rashes Psychiatric: Positive for: Alert, Oriented x 3 (x4 (self, location, year, president)), Normal Insight, Normal Concentration, Normal Affect, Normal Mood - Medications Active Medications: Active Medications Generic Name Dose Route Start Last Admin Trade Name Freq PRN Reason Stop Dose Admin Acetaminophen 650 mg 12/16/17 19:09 12/17/17 08:30 Tylenol 650 Mg Supp RC 650 mg Q6H PRN Administration TEMP>=99.5F Aspirin 325 mg 12/20/17 10:00 12/25/17 12:06 Aspirin PO 325 mg DAILY DAVE Administration Atorvastatin Calcium 10 mg 12/19/17 17:00 12/24/17 17:06 Lipitor PO 10 mg DIN DAVE Administration Budesonide 1 mg 12/22/17 20:00 12/25/17 09:02 Pulmicort Respules IH 1 mg [id number] DAVE Administration Doxycycline Hyclate 100 mg 12/19/17 22:00 12/24/17 21:54 Doryx PO 100 mg Q12 DAVE Administration Enoxaparin Sodium 40 mg 12/17/17 10:00 12/25/17 12:07 Lovenox SC 40 mg DAILY DAVE Administration Protocol Ergocalciferol 1 cap 12/20/17 10:00 12/20/17 10:07 Drisdol 50,000 Intl Units Cap PO 1 cap Q7D DAVE Administration Hydralazine HCl 10 mg 12/23/17 14:29 12/23/17 14:30 Apresoline IVP 10 mg Q6 PRN Administration Systolic Blood Pressure Hydrocortisone Sodium Succinate 50 mg 12/25/17 12:00 Solu-Cortef IVP Q8H DAVE Midazolam 100 mg/100ml in NS 100 mg in 100 mls @ 1 mls/hr 12/23/17 15:31 01/05 11:45 Midazolam 100 Mg/100ml In Ns IV 0 mg/hr .Q24H PRN 0 mls/hr Sedation Titration Protocol 1 MG/HR NOREPINEPHRINE BIT/0.9 % NACL 4 mg in 250 mls @ 15 mls/hr 12/23/17 17:07 01/05 07:38 Levophed 4 Mg/ 250 Ml Ns Premixed IV 0 mcg/min .[id number] PRN 0 mls/hr TITRATE PER MD ORDER Titration Protocol 4 MCG/MIN Vasopressin 20 units/ Dextrose 101 mls @ 9.09 mls/hr 12/23/17 18:00 12/24/17 16:31 IV 9.09 mls/hr .[id number] DAVE Administration Protocol 0.03 U/MIN Acetaminophen 1,000 mg in 100 mls @ 400 mls/hr 12/24/17 03:52 12/24/17 22:07 Ofirmev IVPB 12/26/17 03:53 400 mls/hr Q6H PRN Administration fever >100.4 Vancomycin HCl 1 gm in 250 mls @ 167 mls/hr 12/24/17 10:00 12/25/17 12:07 Vancomycin 1gm IVPB 167 mls/hr Q12 DAVE Administration Protocol Cefepime HCl 2 gm in 100 mls @ 100 mls/hr 12/24/17 09:15 12/25/17 05:42 Maxipime 2gm IVPB 12/29/17 09:16 100 mls/hr Q8 DAVE Administration Protocol Sodium Chloride 1,000 mls @ 100 mls/hr 12/25/17 08:26 Sodium Chloride 0.9% IV 12/25/17 15:00 .Q10H DAVE Ipratropium [place] 0.5 mg 12/22/17 14:00 12/25/17 08:58 Atrovent IH 0.5 mg [id number] Administration Ipratropium [place] 0.5 mg 12/22/17 12:21 Atrovent IH Q2H PRN Shortness of Breath Levalbuterol HCl 0.63 mg 12/16/17 15:37 Xopenex IH Q2 PRN Shortness of Breath Levalbuterol HCl 0.63 mg 12/22/17 08:00 12/25/17 08:59 Xopenex IH 0.63 mg 0200,0800,1400,2000 DAVE Administration Ondansetron HCl 4 mg 12/16/17 19:09 Zofran Inj IVP Q4H PRN Nausea/Vomiting Pantoprazole Sodium 40 mg 12/23/17 22:00 12/24/17 21:53 Protonix Inj IVP 40 mg Q12 DAVE Administration Polyethylene Glycol 17 gm 12/19/17 10:30 12/25/17 12:08 Miralax PO 17 gm DAILY DAVE Administration Potassium Chloride 40 meq 12/25/17 07:15 Potassium Chloride Oral Soln PO 12/25/17 15:16 Q4H DAVE - Patient Studies Lab Studies: Microbiology Studies 12/23/17 17:00 Urine Culture - Final Urine,Catheterized No Growth (<1,000 CFU/ML) 12/23/17 17:00 Gram Stain - Final Sputum Sputum Culture - Final NORMAL ORAL RUSLAN 12/23/17 19:15 Blood Culture - Preliminary Blood NO GROWTH AFTER 24 HOURS 12/23/17 18:15 Blood Culture - Preliminary Blood NO GROWTH AFTER 24 HOURS Lab Studies 12/25/17 12/25/17 12/25/17 Range/Units 11:34 06:00 05:39 WBC (4.5-11.0) 10^3/ul RBC (3.5-6.1) 10^6/uL Hgb (12.0-16.0) g/dL Hct (36.0-48.0) % MCV (80.0-105.0) fl MCH (25.0-35.0) pg MCHC (31.0-37.0) g/dl RDW (11.5-14.5) % Plt Count (120.0-450.0) 10^3/uL MPV (7.0-11.0) fl Gran % (50.0-68.0) % Lymph % (Auto) (22.0-35.0) % [place] % (Auto) (1.0-6.0) % Eos % (Auto) (1.5-5.0) % Baso % (Auto) (0.0-3.0) % Gran # (1.4-6.5) Lymph # (Auto) (1.2-3.4) [place] # (Auto) (0.1-0.6) Eos # (Auto) (0.0-0.7) Baso # (Auto) (0.0-2.0) K/mm3 pCO2 37 (35-45) mm/Hg pO2 131.0 H (80-100) mm/Hg HCO3 26.3 (21-28) mmol/L ABG pH 7.46 H (7.35-7.45) ABG Total CO2 27.4 (22-28) mmol.L ABG O2 Saturation 99.9 H (95-98) % ABG O2 Content 14.1 L (15-23) ML/dl ABG Base Excess 2.4 (-2.0-3.0) mmol/L ABG Hemoglobin 10.2 L (11.7-17.4) g/dL ABG Carboxyhemoglobin 1.7 H (0.5-1.5) % POC ABG HHb (Measured) 0.1 (0-5) % ABG Methemoglobin 1.5 (0.0-3.0) % ABG O2 Capacity 14.1 L (16-24) mL/dl Hgb O2 Saturation 96.7 (95.0-98.0) % FiO2 40.0 % Sodium (132-148) mmol/L Potassium (3.6-5.0) mmol/L Chloride (98-107) mmol/L Carbon Dioxide (21-33) mmol/L Anion Gap (10-20) BUN (7-21) mg/dL Creatinine (0.7-1.2) mg/dl Est GFR ( Amer) Est GFR (Non-Af Amer) POC Glucose (mg/dL) 80 68 (65-110) mg/dL Random Glucose (70-110) mg/dL Calcium (8.4-10.5) mg/dL Magnesium (1.7-2.2) mg/dL Total Bilirubin (0.2-1.3) mg/dL Direct Bilirubin (0.0-0.4) mg/dL AST (14-36) U/L ALT (7-56) U/L Alkaline Phosphatase (38-126) U/L Troponin I ng/mL Total Protein (5.8-8.3) g/dL Albumin (3.0-4.8) g/dL Globulin gm/dL Albumin/Globulin Ratio (1.1-1.8) Procalcitonin (0.19-0.49) NG/ML 12/25/17 12/25/17 12/24/17 Range/Units 05:15 05:15 23:42 WBC 4.1 L D (4.5-11.0) 10^3/ul RBC 3.55 (3.5-6.1) 10^6/uL Hgb 10.5 L (12.0-16.0) g/dL Hct 31.3 L (36.0-48.0) % MCV 88.2 (80.0-105.0) fl MCH 29.6 (25.0-35.0) pg MCHC 33.5 (31.0-37.0) g/dl RDW 14.1 (11.5-14.5) % Plt Count 160 (120.0-450.0) 10^3/uL MPV 10.0 (7.0-11.0) fl Gran % 60.3 (50.0-68.0) % Lymph % (Auto) 26.8 (22.0-35.0) % [place] % (Auto) 12.9 H (1.0-6.0) % Eos % (Auto) 0.0 L (1.5-5.0) % Baso % (Auto) 0.0 (0.0-3.0) % Gran # 2.48 (1.4-6.5) Lymph # (Auto) 1.1 L (1.2-3.4) [place] # (Auto) 0.5 (0.1-0.6) Eos # (Auto) 0.0 (0.0-0.7) Baso # (Auto) 0.00 (0.0-2.0) K/mm3 pCO2 (35-45) mm/Hg pO2 (80-100) mm/Hg HCO3 (21-28) mmol/L ABG pH (7.35-7.45) ABG Total CO2 (22-28) mmol.L ABG O2 Saturation (95-98) % ABG O2 Content (15-23) ML/dl ABG Base Excess (-2.0-3.0) mmol/L ABG Hemoglobin (11.7-17.4) g/dL ABG Carboxyhemoglobin (0.5-1.5) % POC ABG HHb (Measured) (0-5) % ABG Methemoglobin (0.0-3.0) % ABG O2 Capacity (16-24) mL/dl Hgb O2 Saturation (95.0-98.0) % FiO2 % Sodium 133 (132-148) mmol/L Potassium 3.1 L (3.6-5.0) mmol/L Chloride 96 L (98-107) mmol/L Carbon Dioxide 28 (21-33) mmol/L Anion Gap 12 (10-20) BUN 19 (7-21) mg/dL Creatinine 0.5 L (0.7-1.2) mg/dl Est GFR ( Amer) > 60 Est GFR (Non-Af Amer) > 60 POC Glucose (mg/dL) 93 (65-110) mg/dL Random Glucose 76 (70-110) mg/dL Calcium 7.7 L (8.4-10.5) mg/dL Magnesium 1.6 L (1.7-2.2) mg/dL Total Bilirubin 0.7 (0.2-1.3) mg/dL Direct Bilirubin 0.2 (0.0-0.4) mg/dL AST 25 (14-36) U/L ALT 61 H (7-56) U/L Alkaline Phosphatase 49 (38-126) U/L Troponin I 0.16 H* D ng/mL Total Protein 5.5 L (5.8-8.3) g/dL Albumin 3.2 (3.0-4.8) g/dL Globulin 2.3 gm/dL Albumin/Globulin Ratio 1.4 (1.1-1.8) Procalcitonin (0.19-0.49) NG/ML 12/24/17 12/24/17 12/24/17 Range/Units 17:50 11:32 06:30 WBC (4.5-11.0) 10^3/ul RBC (3.5-6.1) 10^6/uL Hgb (12.0-16.0) g/dL Hct (36.0-48.0) % MCV (80.0-105.0) fl MCH (25.0-35.0) pg MCHC (31.0-37.0) g/dl RDW (11.5-14.5) % Plt Count (120.0-450.0) 10^3/uL MPV (7.0-11.0) fl Gran % (50.0-68.0) % Lymph % (Auto) (22.0-35.0) % [place] % (Auto) (1.0-6.0) % Eos % (Auto) (1.5-5.0) % Baso % (Auto) (0.0-3.0) % Gran # (1.4-6.5) Lymph # (Auto) (1.2-3.4) [place] # (Auto) (0.1-0.6) Eos # (Auto) (0.0-0.7) Baso # (Auto) (0.0-2.0) K/mm3 pCO2 (35-45) mm/Hg pO2 (80-100) mm/Hg HCO3 (21-28) mmol/L ABG pH (7.35-7.45) ABG Total CO2 (22-28) mmol.L ABG O2 Saturation (95-98) % ABG O2 Content (15-23) ML/dl ABG Base Excess (-2.0-3.0) mmol/L ABG Hemoglobin (11.7-17.4) g/dL ABG Carboxyhemoglobin (0.5-1.5) % POC ABG HHb (Measured) (0-5) % ABG Methemoglobin (0.0-3.0) % ABG O2 Capacity (16-24) mL/dl Hgb O2 Saturation (95.0-98.0) % FiO2 % Sodium (132-148) mmol/L Potassium (3.6-5.0) mmol/L Chloride (98-107) mmol/L Carbon Dioxide (21-33) mmol/L Anion Gap (10-20) BUN (7-21) mg/dL Creatinine (0.7-1.2) mg/dl Est GFR ( Amer) Est GFR (Non-Af Amer) POC Glucose (mg/dL) 93 88 (65-110) mg/dL Random Glucose (70-110) mg/dL Calcium (8.4-10.5) mg/dL Magnesium (1.7-2.2) mg/dL Total Bilirubin (0.2-1.3) mg/dL Direct Bilirubin (0.0-0.4) mg/dL AST (14-36) U/L ALT (7-56) U/L Alkaline Phosphatase (38-126) U/L Troponin I ng/mL Total Protein (5.8-8.3) g/dL Albumin (3.0-4.8) g/dL Globulin gm/dL Albumin/Globulin Ratio (1.1-1.8) Procalcitonin 0.26 (0.19-0.49) NG/ML Laboratory Results - last 24 hr 12/24/17 12/24/17 12/24/17 06:30 11:32 17:50 WBC RBC Hgb Hct MCV MCH MCHC RDW Plt Count MPV Gran % Lymph % (Auto) [place] % (Auto) Eos % (Auto) Baso % (Auto) Gran # Lymph # (Auto) [place] # (Auto) Eos # (Auto) Baso # (Auto) pCO2 pO2 HCO3 ABG pH ABG Total CO2 ABG O2 Saturation ABG O2 Content ABG Base Excess ABG Hemoglobin ABG Carboxyhemoglobin POC ABG HHb (Measured) ABG Methemoglobin ABG O2 Capacity Hgb O2 Saturation FiO2 Sodium Potassium Chloride Carbon Dioxide Anion Gap BUN Creatinine Est GFR ( Amer) Est GFR (Non-Af Amer) POC Glucose (mg/dL) 88 93 Random Glucose Calcium Magnesium Total Bilirubin Direct Bilirubin AST ALT Alkaline Phosphatase Troponin I Total Protein Albumin Globulin Albumin/Globulin Ratio Procalcitonin 0.26 12/24/17 12/25/17 12/25/17 23:42 05:15 05:15 WBC 4.1 L D RBC 3.55 Hgb 10.5 L Hct 31.3 L MCV 88.2 MCH 29.6 MCHC 33.5 RDW 14.1 Plt Count 160 MPV 10.0 Gran % 60.3 Lymph % (Auto) 26.8 [place] % (Auto) 12.9 H Eos % (Auto) 0.0 L Baso % (Auto) 0.0 Gran # 2.48 Lymph # (Auto) 1.1 L [place] # (Auto) 0.5 Eos # (Auto) 0.0 Baso # (Auto) 0.00 pCO2 pO2 HCO3 ABG pH ABG Total CO2 ABG O2 Saturation ABG O2 Content ABG Base Excess ABG Hemoglobin ABG Carboxyhemoglobin POC ABG HHb (Measured) ABG Methemoglobin ABG O2 Capacity Hgb O2 Saturation FiO2 Sodium 133 Potassium 3.1 L Chloride 96 L Carbon Dioxide 28 Anion Gap 12 BUN 19 Creatinine 0.5 L Est GFR ( Amer) > 60 Est GFR (Non-Af Amer) > 60 POC Glucose (mg/dL) 93 Random Glucose 76 Calcium 7.7 L Magnesium 1.6 L Total Bilirubin 0.7 Direct Bilirubin 0.2 AST 25 ALT 61 H Alkaline Phosphatase 49 Troponin I 0.16 H* D Total Protein 5.5 L Albumin 3.2 Globulin 2.3 Albumin/Globulin Ratio 1.4 Procalcitonin 12/25/17 12/25/17 12/25/17 05:39 06:00 11:34 WBC RBC Hgb Hct MCV MCH MCHC RDW Plt Count MPV Gran % Lymph % (Auto) [place] % (Auto) Eos % (Auto) Baso % (Auto) Gran # Lymph # (Auto) [place] # (Auto) Eos # (Auto) Baso # (Auto) pCO2 37 pO2 131.0 H HCO3 26.3 ABG pH 7.46 H ABG Total CO2 27.4 ABG O2 Saturation 99.9 H ABG O2 Content 14.1 L ABG Base Excess 2.4 ABG Hemoglobin 10.2 L ABG Carboxyhemoglobin 1.7 H POC ABG HHb (Measured) 0.1 ABG Methemoglobin 1.5 ABG O2 Capacity 14.1 L Hgb O2 Saturation 96.7 FiO2 40.0 Sodium Potassium Chloride Carbon Dioxide Anion Gap BUN Creatinine Est GFR ( Amer) Est GFR (Non-Af Amer) POC Glucose (mg/dL) 68 80 Random Glucose Calcium Magnesium Total Bilirubin Direct Bilirubin AST ALT Alkaline Phosphatase Troponin I Total Protein Albumin Globulin Albumin/Globulin Ratio Procalcitonin EKG/Cardiology Studies: Cardiology / EKG Studies 12/25/17 07:00 ELECTROCARDIOGRAM DAILY Comment: Reason For Exam: HYPTENSION/RESP.FAILURE 12/26/17 07:00 ELECTROCARDIOGRAM DAILY Comment: Reason For Exam: HYPTENSION/RESP.FAILURE Fingerstick Blood Sugar Results: 147 Critical Care Progress Note - Nutrition Nutrition: Nutrition Category Date Time Status NPO Diet [DIET] Diets 12/23/17 Lunch Ordered Assessment/Plan - Assessment and Plan (Free Text) Assessment: 72 yo AA F with pertinent PMH of COPD (with prior intubations for exacerbations) , asthma, and pulmonary HTN who presented [place] [facility] [place] worsening shortness of breath, found to be in hypercarbic respiratory failure, failing Bipap in ED, then intubated and placed on mechanical ventilation. Patient was extubated on . Initial ABG showed patient to be in severe respiratory acidosis with retention of CO2; patient was also altered as a result of Hypoxemic Hypercapneic Respiratory failure. Patient was doing better 2 days ago and was ready for transfer out of ICU when she started desatting and was becoming acutely altered mentally. Patient was re-intubated; her ABG changed from acidotic to alkalotic yesterday AM; today it is less alkalotic with the following values: pH 7.46; CO2 37; O2 131; CO2 27.4. We obtained CT Head after intubation to rule out any neurogenic causes for her desaturation, which was negative. Septic work up was ordered with sputum cultures, blood cultures, and urine cultures all negative. CT Chest shows bibasilar atelectasis with possible overlying pneumonia. Troponin was ordered by PMD, which came back elevated at .[address] Parry made aware. Other chronic medical problems: HTN Plan: Neuro: - Sedation Vacation - Maintain normothermia - Once extubated and acute exacerbation resolves - patient should be tapered off steroids. Cardio: - Maintain regular rate and rhythm - Possible NSTEMI: Dr. Parry took to general labor today, pending official report right now. - Lovenox for DVT ppx; Daily ASA Pulm: - Hypoxic Hypercapneic Respiratory Failure Likely 2/2 PNA VS COPD VS Mixed picture - Vanc/Cefepime; Doxy, but patient is intubated without NG/OGT - Solumedrol, Xopenex, Atrovent, Budesonide - ENT consult for tracheostomy: Per surgery, patient's family not yet ready for Trach despite discussions yesterday. They asked to be re-consulted when patient's family is ready - Pulm consult: Dr. Smart GI: - Protonix for GI ppx - Miralax Dave; Zofran PRN Renal: - Monitor and replete electrolytes as needed Heme: - Lovenox for DVT ppx Endo: - Maintain euglycemia ID: - Covered for PNA with Cefepime and Vanc; Doxy cannot be administered 2/2 intubation status <Ronny Rodriguez - Last Filed: 12/25/17 16:59> CCU Objective - Vital Signs / Intake & Output Intake and Output (Last 8hrs): Intake & Output 12/25/17 12/25/17 12/25/17 06:59 14:59 22:59 Intake Total 1350 Output Total 675 675 Balance -675 675 Intake: IV 1350 vancomycin 1350 Output: Urine 675 675 Urethral ([place]) 675 675 Stool 0 Emesis 0 - Medications Active Medications: Active Medications Generic Name Dose Route Start Last Admin Trade Name Freq PRN Reason Stop Dose Admin Acetaminophen 650 mg 12/16/17 19:09 12/17/17 08:30 Tylenol 650 Mg Supp RC 650 mg Q6H PRN Administration TEMP>=99.5F Aspirin 325 mg 12/20/17 10:00 12/25/17 12:06 Aspirin PO 325 mg DAILY DAVE Administration Atorvastatin Calcium 10 mg 12/19/17 17:00 12/25/17 16:09 Lipitor PO 10 mg DIN DAVE Administration Budesonide 1 mg 12/22/17 20:00 12/25/17 09:02 Pulmicort Respules IH 1 mg [id number] DAVE Administration Doxycycline Hyclate 100 mg 12/19/17 22:00 12/25/17 13:10 Doryx PO Not Given Q12 [facility] Enoxaparin Sodium 40 mg 12/17/17 10:00 12/25/17 12:07 Lovenox SC 40 mg DAILY DAVE Administration Protocol Ergocalciferol 1 cap 12/20/17 10:00 12/20/17 10:07 Drisdol 50,000 Intl Units Cap PO 1 cap Q7D DAVE Administration Hydralazine HCl 10 mg 12/23/17 14:29 12/23/17 14:30 Apresoline IVP 10 mg Q6 PRN Administration Systolic Blood Pressure Hydrocortisone Sodium Succinate 50 mg 12/25/17 12:00 12/25/17 13:28 Solu-Cortef IVP 50 mg Q8H DAVE Administration Midazolam 100 mg/100ml in NS 100 mg in 100 mls @ 1 mls/hr 12/23/17 15:31 01/05 11:45 Midazolam 100 Mg/100ml In Ns IV 0 mg/hr .Q24H PRN 0 mls/hr Sedation Titration Protocol 1 MG/HR NOREPINEPHRINE BIT/0.9 % NACL 4 mg in 250 mls @ 15 mls/hr 12/23/17 17:07 01/05 07:38 Levophed 4 Mg/ 250 Ml Ns Premixed IV 0 mcg/min .[id number] PRN 0 mls/hr TITRATE PER MD ORDER Titration Protocol 4 MCG/MIN Vasopressin 20 units/ Dextrose 101 mls @ 9.09 mls/hr 12/23/17 18:00 12/24/17 16:31 IV 9.09 mls/hr .Q11H7M DAVE Administration Protocol 0.03 U/MIN Acetaminophen 1,000 mg in 100 mls @ 400 mls/hr 12/24/17 03:52 12/24/17 22:07 Ofirmev IVPB 12/26/17 03:53 400 mls/hr Q6H PRN Administration fever >100.4 Vancomycin HCl 1 gm in 250 mls @ 167 mls/hr 12/24/17 10:00 12/25/17 12:07 Vancomycin 1gm IVPB 167 mls/hr Q12 DAVE Administration Protocol Cefepime HCl 2 gm in 100 mls @ 100 mls/hr 12/24/17 09:15 12/25/17 13:18 Maxipime 2gm IVPB 12/29/17 09:16 100 mls/hr Q8 DAVE Administration Protocol Ipratropium [place] 0.5 mg 12/22/17 14:00 12/25/17 13:58 Atrovent IH 0.5 mg [id number] DAVE Administration Ipratropium [place] 0.5 mg 12/22/17 12:21 Atrovent IH Q2H PRN Shortness of Breath Levalbuterol HCl 0.63 mg 12/16/17 15:37 Xopenex IH Q2 PRN Shortness of Breath Levalbuterol HCl 0.63 mg 12/22/17 08:00 12/25/17 13:58 Xopenex IH 0.63 mg 0200,0800,1400,2000 DAVE Administration Ondansetron HCl 4 mg 12/16/17 19:09 Zofran Inj IVP Q4H PRN Nausea/Vomiting Pantoprazole Sodium 40 mg 12/23/17 22:00 12/25/17 11:24 Protonix Inj IVP 40 mg Q12 DAVE Administration Polyethylene Glycol 17 gm 12/19/17 10:30 12/25/17 12:08 Miralax PO 17 gm DAILY DAVE Administration - Patient Studies Lab Studies: Microbiology Studies 12/23/17 17:00 Urine Culture - Final Urine,Catheterized No Growth (<1,000 CFU/ML) 12/23/17 17:00 Gram Stain - Final Sputum Sputum Culture - Final NORMAL ORAL RUSLAN 12/23/17 19:15 Blood Culture - Preliminary Blood NO GROWTH AFTER 24 HOURS 12/23/17 18:15 Blood Culture - Preliminary Blood NO GROWTH AFTER 24 HOURS Lab Studies 12/25/17 12/25/17 12/25/17 Range/Units 15:24 11:34 06:00 WBC (4.5-11.0) 10^3/ul RBC (3.5-6.1) 10^6/uL Hgb (12.0-16.0) g/dL Hct (36.0-48.0) % MCV (80.0-105.0) fl MCH (25.0-35.0) pg MCHC (31.0-37.0) g/dl RDW (11.5-14.5) % Plt Count (120.0-450.0) 10^3/uL MPV (7.0-11.0) fl Gran % (50.0-68.0) % Lymph % (Auto) (22.0-35.0) % [place] % (Auto) (1.0-6.0) % Eos % (Auto) (1.5-5.0) % Baso % (Auto) (0.0-3.0) % Gran # (1.4-6.5) Lymph # (Auto) (1.2-3.4) [place] # (Auto) (0.1-0.6) Eos # (Auto) (0.0-0.7) Baso # (Auto) (0.0-2.0) K/mm3 PT 13.0 H (9.4-12.5) SECONDS INR 1.14 H (0.93-1.08) APTT 32.0 (25.1-36.5) Seconds pCO2 37 (35-45) mm/Hg pO2 131.0 H (80-100) mm/Hg HCO3 26.3 (21-28) mmol/L ABG pH 7.46 H (7.35-7.45) ABG Total CO2 27.4 (22-28) mmol.L ABG O2 Saturation 99.9 H (95-98) % ABG O2 Content 14.1 L (15-23) ML/dl ABG Base Excess 2.4 (-2.0-3.0) mmol/L ABG Hemoglobin 10.2 L (11.7-17.4) g/dL ABG Carboxyhemoglobin 1.7 H (0.5-1.5) % POC ABG HHb (Measured) 0.1 (0-5) % ABG Methemoglobin 1.5 (0.0-3.0) % ABG O2 Capacity 14.1 L (16-24) mL/dl Hgb O2 Saturation 96.7 (95.0-98.0) % FiO2 40.0 % Sodium (132-148) mmol/L Potassium (3.6-5.0) mmol/L Chloride (98-107) mmol/L Carbon Dioxide (21-33) mmol/L Anion Gap (10-20) BUN (7-21) mg/dL Creatinine (0.7-1.2) mg/dl Est GFR ( Amer) Est GFR (Non-Af Amer) POC Glucose (mg/dL) 80 (65-110) mg/dL Random Glucose (70-110) mg/dL Calcium (8.4-10.5) mg/dL Magnesium (1.7-2.2) mg/dL Total Bilirubin (0.2-1.3) mg/dL Direct Bilirubin (0.0-0.4) mg/dL AST (14-36) U/L ALT (7-56) U/L Alkaline Phosphatase (38-126) U/L Troponin I ng/mL Total Protein (5.8-8.3) g/dL Albumin (3.0-4.8) g/dL Globulin gm/dL Albumin/Globulin Ratio (1.1-1.8) Procalcitonin (0.19-0.49) NG/ML 12/25/17 12/25/17 12/25/17 Range/Units 05:39 05:15 05:15 WBC 4.1 L D (4.5-11.0) 10^3/ul RBC 3.55 (3.5-6.1) 10^6/uL Hgb 10.5 L (12.0-16.0) g/dL Hct 31.3 L (36.0-48.0) % MCV 88.2 (80.0-105.0) fl MCH 29.6 (25.0-35.0) pg MCHC 33.5 (31.0-37.0) g/dl RDW 14.1 (11.5-14.5) % Plt Count 160 (120.0-450.0) 10^3/uL MPV 10.0 (7.0-11.0) fl Gran % 60.3 (50.0-68.0) % Lymph % (Auto) 26.8 (22.0-35.0) % [place] % (Auto) 12.9 H (1.0-6.0) % Eos % (Auto) 0.0 L (1.5-5.0) % Baso % (Auto) 0.0 (0.0-3.0) % Gran # 2.48 (1.4-6.5) Lymph # (Auto) 1.1 L (1.2-3.4) [place] # (Auto) 0.5 (0.1-0.6) Eos # (Auto) 0.0 (0.0-0.7) Baso # (Auto) 0.00 (0.0-2.0) K/mm3 PT (9.4-12.5) SECONDS INR (0.93-1.08) APTT (25.1-36.5) Seconds pCO2 (35-45) mm/Hg pO2 (80-100) mm/Hg HCO3 (21-28) mmol/L ABG pH (7.35-7.45) ABG Total CO2 (22-28) mmol.L ABG O2 Saturation (95-98) % ABG O2 Content (15-23) ML/dl ABG Base Excess (-2.0-3.0) mmol/L ABG Hemoglobin (11.7-17.4) g/dL ABG Carboxyhemoglobin (0.5-1.5) % POC ABG HHb (Measured) (0-5) % ABG Methemoglobin (0.0-3.0) % ABG O2 Capacity (16-24) mL/dl Hgb O2 Saturation (95.0-98.0) % FiO2 % Sodium 133 (132-148) mmol/L Potassium 3.1 L (3.6-5.0) mmol/L Chloride 96 L (98-107) mmol/L Carbon Dioxide 28 (21-33) mmol/L Anion Gap 12 (10-20) BUN 19 (7-21) mg/dL Creatinine 0.5 L (0.7-1.2) mg/dl Est GFR ( Amer) > 60 Est GFR (Non-Af Amer) > 60 POC Glucose (mg/dL) 68 (65-110) mg/dL Random Glucose 76 (70-110) mg/dL Calcium 7.7 L (8.4-10.5) mg/dL Magnesium 1.6 L (1.7-2.2) mg/dL Total Bilirubin 0.7 (0.2-1.3) mg/dL Direct Bilirubin 0.2 (0.0-0.4) mg/dL AST 25 (14-36) U/L ALT 61 H (7-56) U/L Alkaline Phosphatase 49 (38-126) U/L Troponin I 0.16 H* D ng/mL Total Protein 5.5 L (5.8-8.3) g/dL Albumin 3.2 (3.0-4.8) g/dL Globulin 2.3 gm/dL Albumin/Globulin Ratio 1.4 (1.1-1.8) Procalcitonin (0.19-0.49) NG/ML 12/24/17 12/24/17 12/24/17 Range/Units 23:42 17:50 11:32 WBC (4.5-11.0) 10^3/ul RBC (3.5-6.1) 10^6/uL Hgb (12.0-16.0) g/dL Hct (36.0-48.0) % MCV (80.0-105.0) fl MCH (25.0-35.0) pg MCHC (31.0-37.0) g/dl RDW (11.5-14.5) % Plt Count (120.0-450.0) 10^3/uL MPV (7.0-11.0) fl Gran % (50.0-68.0) % Lymph % (Auto) (22.0-35.0) % [place] % (Auto) (1.0-6.0) % Eos % (Auto) (1.5-5.0) % Baso % (Auto) (0.0-3.0) % Gran # (1.4-6.5) Lymph # (Auto) (1.2-3.4) [place] # (Auto) (0.1-0.6) Eos # (Auto) (0.0-0.7) Baso # (Auto) (0.0-2.0) K/mm3 PT (9.4-12.5) SECONDS INR (0.93-1.08) APTT (25.1-36.5) Seconds pCO2 (35-45) mm/Hg pO2 (80-100) mm/Hg HCO3 (21-28) mmol/L ABG pH (7.35-7.45) ABG Total CO2 (22-28) mmol.L ABG O2 Saturation (95-98) % ABG O2 Content (15-23) ML/dl ABG Base Excess (-2.0-3.0) mmol/L ABG Hemoglobin (11.7-17.4) g/dL ABG Carboxyhemoglobin (0.5-1.5) % POC ABG HHb (Measured) (0-5) % ABG Methemoglobin (0.0-3.0) % ABG O2 Capacity (16-24) mL/dl Hgb O2 Saturation (95.0-98.0) % FiO2 % Sodium (132-148) mmol/L Potassium (3.6-5.0) mmol/L Chloride (98-107) mmol/L Carbon Dioxide (21-33) mmol/L Anion Gap (10-20) BUN (7-21) mg/dL Creatinine (0.7-1.2) mg/dl Est GFR ( Amer) Est GFR (Non-Af Amer) POC Glucose (mg/dL) 93 93 88 (65-110) mg/dL Random Glucose (70-110) mg/dL Calcium (8.4-10.5) mg/dL Magnesium (1.7-2.2) mg/dL Total Bilirubin (0.2-1.3) mg/dL Direct Bilirubin (0.0-0.4) mg/dL AST (14-36) U/L ALT (7-56) U/L Alkaline Phosphatase (38-126) U/L Troponin I ng/mL Total Protein (5.8-8.3) g/dL Albumin (3.0-4.8) g/dL Globulin gm/dL Albumin/Globulin Ratio (1.1-1.8) Procalcitonin (0.19-0.49) NG/ML 12/24/17 Range/Units 06:30 WBC (4.5-11.0) 10^3/ul RBC (3.5-6.1) 10^6/uL Hgb (12.0-16.0) g/dL Hct (36.0-48.0) % MCV (80.0-105.0) fl MCH (25.0-35.0) pg MCHC (31.0-37.0) g/dl RDW (11.5-14.5) % Plt Count (120.0-450.0) 10^3/uL MPV (7.0-11.0) fl Gran % (50.0-68.0) % Lymph % (Auto) (22.0-35.0) % [place] % (Auto) (1.0-6.0) % Eos % (Auto) (1.5-5.0) % Baso % (Auto) (0.0-3.0) % Gran # (1.4-6.5) Lymph # (Auto) (1.2-3.4) [place] # (Auto) (0.1-0.6) Eos # (Auto) (0.0-0.7) Baso # (Auto) (0.0-2.0) K/mm3 PT (9.4-12.5) SECONDS INR (0.93-1.08) APTT (25.1-36.5) Seconds pCO2 (35-45) mm/Hg pO2 (80-100) mm/Hg HCO3 (21-28) mmol/L ABG pH (7.35-7.45) ABG Total CO2 (22-28) mmol.L ABG O2 Saturation (95-98) % ABG O2 Content (15-23) ML/dl ABG Base Excess (-2.0-3.0) mmol/L ABG Hemoglobin (11.7-17.4) g/dL ABG Carboxyhemoglobin (0.5-1.5) % POC ABG HHb (Measured) (0-5) % ABG Methemoglobin (0.0-3.0) % ABG O2 Capacity (16-24) mL/dl Hgb O2 Saturation (95.0-98.0) % FiO2 % Sodium (132-148) mmol/L Potassium (3.6-5.0) mmol/L Chloride (98-107) mmol/L Carbon Dioxide (21-33) mmol/L Anion Gap (10-20) BUN (7-21) mg/dL Creatinine (0.7-1.2) mg/dl Est GFR ( Amer) Est GFR (Non-Af Amer) POC Glucose (mg/dL) (65-110) mg/dL Random Glucose (70-110) mg/dL Calcium (8.4-10.5) mg/dL Magnesium (1.7-2.2) mg/dL Total Bilirubin (0.2-1.3) mg/dL Direct Bilirubin (0.0-0.4) mg/dL AST (14-36) U/L ALT (7-56) U/L Alkaline Phosphatase (38-126) U/L Troponin I ng/mL Total Protein (5.8-8.3) g/dL Albumin (3.0-4.8) g/dL Globulin gm/dL Albumin/Globulin Ratio (1.1-1.8) Procalcitonin 0.26 (0.19-0.49) NG/ML Laboratory Results - last 24 hr 12/24/17 12/24/17 12/24/17 06:30 11:32 17:50 WBC RBC Hgb Hct MCV MCH MCHC RDW Plt Count MPV Gran % Lymph % (Auto) [place] % (Auto) Eos % (Auto) Baso % (Auto) Gran # Lymph # (Auto) [place] # (Auto) Eos # (Auto) Baso # (Auto) PT INR APTT pCO2 pO2 HCO3 ABG pH ABG Total CO2 ABG O2 Saturation ABG O2 Content ABG Base Excess ABG Hemoglobin ABG Carboxyhemoglobin POC ABG HHb (Measured) ABG Methemoglobin ABG O2 Capacity Hgb O2 Saturation FiO2 Sodium Potassium Chloride Carbon Dioxide Anion Gap BUN Creatinine Est GFR ( Amer) Est GFR (Non-Af Amer) POC Glucose (mg/dL) 88 93 Random Glucose Calcium Magnesium Total Bilirubin Direct Bilirubin AST ALT Alkaline Phosphatase Troponin I Total Protein Albumin Globulin Albumin/Globulin Ratio Procalcitonin 0.26 12/24/17 12/25/17 12/25/17 23:42 05:15 05:15 WBC 4.1 L D RBC 3.55 Hgb 10.5 L Hct 31.3 L MCV 88.2 MCH 29.6 MCHC 33.5 RDW 14.1 Plt Count 160 MPV 10.0 Gran % 60.3 Lymph % (Auto) 26.8 [place] % (Auto) 12.9 H Eos % (Auto) 0.0 L Baso % (Auto) 0.0 Gran # 2.48 Lymph # (Auto) 1.1 L [place] # (Auto) 0.5 Eos # (Auto) 0.0 Baso # (Auto) 0.00 PT INR APTT pCO2 pO2 HCO3 ABG pH ABG Total CO2 ABG O2 Saturation ABG O2 Content ABG Base Excess ABG Hemoglobin ABG Carboxyhemoglobin POC ABG HHb (Measured) ABG Methemoglobin ABG O2 Capacity Hgb O2 Saturation FiO2 Sodium 133 Potassium 3.1 L Chloride 96 L Carbon Dioxide 28 Anion Gap 12 BUN 19 Creatinine 0.5 L Est GFR ( Amer) > 60 Est GFR (Non-Af Amer) > 60 POC Glucose (mg/dL) 93 Random Glucose 76 Calcium 7.7 L Magnesium 1.6 L Total Bilirubin 0.7 Direct Bilirubin 0.2 AST 25 ALT 61 H Alkaline Phosphatase 49 Troponin I 0.16 H* D Total Protein 5.5 L Albumin 3.2 Globulin 2.3 Albumin/Globulin Ratio 1.4 Procalcitonin 12/25/17 12/25/17 12/25/17 05:39 06:00 11:34 WBC RBC Hgb Hct MCV MCH MCHC RDW Plt Count MPV Gran % Lymph % (Auto) [place] % (Auto) Eos % (Auto) Baso % (Auto) Gran # Lymph # (Auto) [place] # (Auto) Eos # (Auto) Baso # (Auto) PT INR APTT pCO2 37 pO2 131.0 H HCO3 26.3 ABG pH 7.46 H ABG Total CO2 27.4 ABG O2 Saturation 99.9 H ABG O2 Content 14.1 L ABG Base Excess 2.4 ABG Hemoglobin 10.2 L ABG Carboxyhemoglobin 1.7 H POC ABG HHb (Measured) 0.1 ABG Methemoglobin 1.5 ABG O2 Capacity 14.1 L Hgb O2 Saturation 96.7 FiO2 40.0 Sodium Potassium Chloride Carbon Dioxide Anion Gap BUN Creatinine Est GFR ( Amer) Est GFR (Non-Af Amer) POC Glucose (mg/dL) 68 80 Random Glucose Calcium Magnesium Total Bilirubin Direct Bilirubin AST ALT Alkaline Phosphatase Troponin I Total Protein Albumin Globulin Albumin/Globulin Ratio Procalcitonin 12/25/17 15:24 WBC RBC Hgb Hct MCV MCH MCHC RDW Plt Count MPV Gran % Lymph % (Auto) [place] % (Auto) Eos % (Auto) Baso % (Auto) Gran # Lymph # (Auto) [place] # (Auto) Eos # (Auto) Baso # (Auto) PT 13.0 H INR 1.14 H APTT 32.0 pCO2 pO2 HCO3 ABG pH ABG Total CO2 ABG O2 Saturation ABG O2 Content ABG Base Excess ABG Hemoglobin ABG Carboxyhemoglobin POC ABG HHb (Measured) ABG Methemoglobin ABG O2 Capacity Hgb O2 Saturation FiO2 Sodium Potassium Chloride Carbon Dioxide Anion Gap BUN Creatinine Est GFR ( Amer) Est GFR (Non-Af Amer) POC Glucose (mg/dL) Random Glucose Calcium Magnesium Total Bilirubin Direct Bilirubin AST ALT Alkaline Phosphatase Troponin I Total Protein Albumin Globulin Albumin/Globulin Ratio Procalcitonin EKG/Cardiology Studies: Cardiology / EKG Studies 12/25/17 07:00 ELECTROCARDIOGRAM DAILY Comment: Reason For Exam: HYPTENSION/RESP.FAILURE 12/26/17 07:00 ELECTROCARDIOGRAM DAILY Comment: Reason For Exam: HYPTENSION/RESP.FAILURE Critical Care Progress Note - Nutrition Nutrition: Nutrition Category Date Time Status NPO Diet [DIET] Diets 12/23/17 Lunch Ordered Attending/Attestation - Attestation I have personally seen and examined this patient.: Yes I have fully participated in the care of the patient.: Yes I have reviewed all pertinent clinical information: Yes Notes (Text): 12/25/17 16:56 72 yo female with HcRF/VDRF. Cardiac cath: no clinically significant coronary disease. For trach on friday. meanwhile continue to wean vent, early mobilization, steroid taper, nebs. dvt/gi prophylaxis. Please see Dr. Rodriguez note as well ccm time 40 min
--- NOTE | 2017-12-25 13:15 | CP.PCM.PN ---
Subjective - Date & Time of Evaluation Date of Evaluation: 12/25/17 Time of Evaluation: 07:10 - Subjective Subjective: Patient seen and examined at bedside this AM. No adverse events overnight. Discussed surgical options with family at bedside and attempted to reach daughter Gwen by phone, but was unable to reach her. Per her son and the ICU team and patient, they wish to go forward with the tracheostomy. Objective - Vital Signs/Intake and Output Vital Signs (last 24 hours): Temp Pulse Resp BP Pulse Ox 99.1 F 68 18 121/67 100 12/25/17 11:45 12/25/17 11:45 12/25/17 08:45 12/25/17 11:45 12/25/17 11:45 Intake and Output: 12/25/17 12/25/17 06:59 18:59 Intake Total 1350 Output Total 675 675 Balance -675 675 - Medications Medications: Current Medications Acetaminophen (Tylenol 650 Mg Supp) 650 mg RC Q6H PRN PRN Reason: TEMP>=99.5F Last Admin: 12/17/17 08:30 Dose: 650 mg Aspirin (Aspirin) 325 mg PO DAILY [facility] Last Admin: 12/25/17 12:06 Dose: 325 mg Atorvastatin Calcium (Lipitor) 10 mg PO DIN [facility] Last Admin: 12/24/17 17:06 Dose: 10 mg Budesonide (Pulmicort Respules) 1 mg IH [id number] [facility] Last Admin: 12/25/17 09:02 Dose: 1 mg Doxycycline Hyclate (Doryx) 100 mg PO Q12 [facility] Last Admin: 12/24/17 21:54 Dose: 100 mg Enoxaparin Sodium (Lovenox) 40 mg SC DAILY [facility] PRN Reason: Protocol Last Admin: 12/25/17 12:07 Dose: 40 mg Ergocalciferol (Drisdol 50,000 Intl Units Cap) 1 cap PO Q7D [facility] Last Admin: 12/20/17 10:07 Dose: 1 cap Hydralazine HCl (Apresoline) 10 mg IVP Q6 PRN PRN Reason: Systolic Blood Pressure Last Admin: 12/23/17 14:30 Dose: 10 mg Hydrocortisone Sodium Succinate (Solu-Cortef) 50 mg IVP Q8H [facility] Midazolam 100 mg/100ml in NS (Midazolam 100 Mg/100ml In Ns) 100 mg in 100 mls @ 1 mls/hr IV .Q24H PRN; Protocol; 1 MG/HR PRN Reason: Sedation Last Titration: 12/24/17 11:45 Dose: 0 mg/hr, 0 mls/hr NOREPINEPHRINE BIT/0.9 % NACL (Levophed 4 Mg/ 250 Ml Ns Premixed) 4 mg in 250 mls @ 15 mls/hr IV .[id number] PRN; Protocol; 4 MCG/MIN PRN Reason: TITRATE PER MD ORDER Last Titration: 12/24/17 07:38 Dose: 0 mcg/min, 0 mls/hr Vasopressin 20 units/ Dextrose 101 mls @ 9.09 mls/hr IV .[id number] KRISTINE; 0.03 U/MIN PRN Reason: Protocol Last Admin: 12/24/17 16:31 Dose: 9.09 mls/hr Acetaminophen (Ofirmev) 1,000 mg in 100 mls @ 400 mls/hr IVPB Q6H PRN PRN Reason: fever >100.4 Stop: 12/26/17 03:53 Last Admin: 12/24/17 22:07 Dose: 400 mls/hr Vancomycin HCl (Vancomycin 1gm) 1 gm in 250 mls @ 167 mls/hr IVPB Q12 [facility]ST[facility] PRN Reason: Protocol Last Admin: 12/25/17 12:07 Dose: 167 mls/hr Cefepime HCl (Maxipime 2gm) 2 gm in 100 mls @ 100 mls/hr IVPB Q8 [facility]STINE PRN Reason: Protocol Stop: 12/29/17 09:16 Last Admin: 12/25/17 05:42 Dose: 100 mls/hr Sodium Chloride (Sodium Chloride 0.9%) 1,000 mls @ 100 mls/hr IV .Q10H KRISTINE Stop: 12/25/17 15:00 Ipratropium [place] (Atrovent) 0.5 mg IH [id number] KRISTINE Last Admin: 12/25/17 08:58 Dose: 0.5 mg Ipratropium [place] (Atrovent) 0.5 mg IH Q2H PRN PRN Reason: Shortness of Breath Levalbuterol HCl (Xopenex) 0.63 mg IH Q2 PRN PRN Reason: Shortness of Breath Levalbuterol HCl (Xopenex) 0.63 mg 0200,0800,1400,2000 [facility] Last Admin: 12/25/17 08:59 Dose: 0.63 mg Ondansetron HCl (Zofran Inj) 4 mg IVP Q4H PRN PRN Reason: Nausea/Vomiting Pantoprazole Sodium (Protonix Inj) 40 mg IVP Q12 [facility] Last Admin: 12/24/17 21:53 Dose: 40 mg Polyethylene Glycol (Miralax) 17 gm PO DAILY [facility] Last Admin: 12/25/17 12:08 Dose: 17 gm Potassium Chloride (Potassium Chloride Oral Soln) 40 meq PO Q4H KRISTINE Stop: 12/25/17 15:16 - Labs Labs: 12/25/17 05:15 12/25/17 05:15 PT 13.6 SECONDS (9.4-12.5) H 12/17/17 06:00 INR 1.18 (0.93-1.08) H 12/17/17 06:00 APTT 23.2 Seconds (25.1-36.5) L 12/17/17 06:00 - Constitutional Appears: Non-toxic, No Acute Distress - Head Exam Head Exam: ATRAUMATIC, NORMOCEPHALIC - Eye Exam Eye Exam: Normal appearance. absent: Conjunctival injection, Scleral icterus - ENT Exam Additional comments: ETT in place - Neck Exam Neck Exam: Normal Inspection Additional comments: no tracheal deviation - Respiratory Exam Respiratory Exam: NORMAL BREATHING PATTERN. absent: Accessory Muscle Use, Respiratory Distress Additional comments: on mechanical ventilation - Cardiovascular Exam Cardiovascular Exam: RRR - GI/Abdominal Exam GI & Abdominal Exam: absent: Distended - Extremities Exam Extremities Exam: absent: Calf Tenderness - Neurological Exam Neurological Exam: Alert, Awake, Oriented x3 - Psychiatric Exam Psychiatric exam: Normal Affect, Normal Mood - Skin Skin Exam: Dry, Normal Color, Warm Assessment and Plan - Assessment and Plan (Free Text) Assessment: 72F with respiratory failure with dependence on mechanical ventilation Plan: Plan for tracheostomy likely next Friday or Friday F/U cardiac catheterization official report--patient needs cardiac clearance prior to OR Continue attempts to wean patient off of ventilator Continue to trend labs continue management per ICU and cardiology Discussed with Dr. Kimberli Concepcion, PGY2
[2017-12-25] MEDS: Potassium Chloride 40 mEq/30 ml LIQ UD PO SCH ×2 (13:23→16:13)
--- NOTE | 2017-12-25 13:42 | CARDCATH ---
PROCEDURE DATE: 12/25/2017 CARDIAC CATHETERIZATION HISTORY: The patient is a 72-year-old woman with recurrent respiratory failure. Because of her ongoing symptoms, I was asked to rule out cardiac causes of her recurrent respiratory failure. PROCEDURES: Left heart catheterization with coronary arteriography, left ventriculogram, supra-aortic valvular injection. The right femoral artery was cannulated with a 6-[place] sheath. There were no complications. The patient remained on a ventilator, in which I performed moderate sedation with an independent observer that assisted in monitoring the patient's level of consciousness and physiologic status. After administration of Versed and fentanyl, my intra-service time was 15 minutes. Findings on catheterization revealed a left ventricle that contracted normally. Estimated ejection fraction is 60%. Hemodynamic data revealed LVEDP of 15 mmHg. Supra-aortic valvular injection revealed no aortic insufficiency. Her coronary arteries revealed a left dominant circulation. The RCA was a nondominant vessel and revealed intimal irregularities without critical lesions. The left main artery was a large vessel and was free of significant disease. The LAD and diagonal vessels revealed diffuse atherosclerosis throughout its course. There was no critical lesions in the LAD. In the second diagonal vessel, there was a 60%-70% stenoses in the proximal portion. The circumflex artery was a dominant vessel. There is diffuse atherosclerosis throughout the circumflex artery, obtuse marginal branches as well as the PDA with no critical lesions were noted. Angio-Seal was used to close the femoral artery site. The patient tolerated the procedure well. In summary, the procedure revealed normal LV function. Normal LVEDP of 15 mmHg. No aortic insufficiency on aortic root injection. Diffuse atherosclerosis in the coronary tree, but no critical lesions with a 50%-60% stenoses in the proximal portion of the second diagonal vessel. Given these findings, the patient's respiratory failure cannot be explained by her cardiac status. Her cardiac status is free of free of cardiac issues. Her respiratory failure etiology is likely from pulmonary causes. Marcelo Parry MD
[2017-12-25 15:38] LABS: INR 1.14 (0.93-1.08)
--- NOTE | 2017-12-25 17:04 | PN ---
DATE: 12/25/2017 SUBJECTIVE: The patient is seen and examined at the bedside. She is off sedation. She is very comfortable despite having endotracheal tube in. She is communicating nonverbally through gestures and writing. She is on pressure support 10/5 with FiO2 of 40% and her RSBI is as bad as 96. She is breathing 27 to 29 times per minute and pulling about 300 mL of tidal volume. She just had a coronary angiography, which did not reveal clinically significant coronary artery disease. PHYSICAL EXAMINATION: VITAL SIGNS: As follows; heart rate 73, oxygen saturation 100%, blood pressure 121/67, temperature 99.1, end tidal CO2 on the monitor 40. ENT: Atraumatic. HEAD AND NECK: Atraumatic. LUNGS: Clear to auscultation bilaterally. HEART: Regular rate and rhythm. S1 and S2 normal. ABDOMEN: Soft, nontender and nondistended. MUSCULOSKELETAL: No extending hematoma in the groin area. SKIN: Moist. PSYCHIATRIC: Patient is alert, awake and oriented. LABORATORY DATA: WBC 4.1, hemoglobin 10.5, platelet count 160. Sodium 133, potassium 3.1, chloride 96, carbon dioxide 28, BUN 19, creatinine 0.5, glucose 80. Troponin 0.16 down from 0.3. Magnesium 1.6. PTT 23.2. ABG today is 7.46/37/131, 40 % FiO2. MEDICATIONS: Tylenol p.r.n., aspirin, Lipitor, Pulmicort, doxycycline, Lovenox for DVT prophylaxis, hydralazine p.r.n., hydrocortisone 50 mg IV every 6 hours, Atrovent p.r.n. and Atrovent every 6 hours, Xopenex three times a day and Xopenex p.r.n., cefepime, Zofran p.r.n., Protonix, potassium supplementation, vancomycin. ASSESSMENT AND PLAN: This is a 72-year-old lady who has ventilator-dependent hypercapnic respiratory failure. She had been reintubated twice after initial improvement. Both times due to acute respiratory acidosis. She had a coronary angiography today to rule out cardiac component of her failure to maintain ventilation. Coronaries appeared to be clear. Left ventricular diastolic pressure 15 and left ventricular systolic function appears to be within normal limits according to my conversation with Dr. Parry. At present time, we will continue to wean her from mechanical ventilation. IPAP was weaned from 15 to 10 today. She appears to tolerate it well. We will continue with steroid taper, inhaled corticosteroids, bronchodilators. We will continue with head of bed elevated more than 35 degrees. Oral hygiene. Deep venous thrombosis and gastrointestinal prophylaxis. Conservative fluid and oxygen management. Early mobilization and OOB to chair ccm time 40 min Ronny Rodriguez MD MTDD
--- NOTE | 2017-12-25 23:02 | PN ---
DATE: 12/25/2017 SUBJECTIVE: Patient is seen intubated in the CCU, bed 3. Patient has undergone a cardiac catheterization this morning because of elevated troponin. Patient is awake, responsive. Eyes open. Patient is intubated. Off sedation. Patient's son is at bedside. OBJECTIVE: VITAL SIGNS: T-max 99. Telemetry shows sinus rhythm. Heart rate 64, 68, 66, 74, 58, 61. Blood pressure in the last 24 hours averaging in 120s and 130s, systolic; diastolic in 60s. Respiration rate is 30s and 40s. O2 sat 100% on ventilator. Patient, in the morning, was put on pressure support, with a PEEP of 5. HEENT: Head examination, normocephalic and atraumatic. HEENT examination shows pinkish conjunctivae. Anicteric sclerae. Positive ET tube. Positive NG tube. Positive left internal jugular triple-lumen catheter noted. CHEST: Kyphosis. LUNGS: Shows positive upper lung field rhonchi. CARDIOVASCULAR: S1, S2, regular rhythm. Positive systolic murmur, left sternal border, right second intercostal space, left second intercostal space. ABDOMEN: Soft. Positive bowel sound. GENITALIA: Female. RECTAL: Deferred. EXTREMITIES: Show no pitting, no calf numbness, no Homans signs. Positive SCDs. MUSCULOSKELETAL: Shows a body mass index of 31.3. NEUROLOGIC: Patient is intubated, on a respirator, on bedrest at present. DIAGNOSTIC DATA: On 12/25/2017, WBC 4.1, hemoglobin and hematocrit 10.5 and 31.3, platelet 160. PT 13, INR 1. ABG: ABG on 40% FiO2, pH of 7.46, pCO2 of 37, PO2 of 131, bicarb 26, saturation of 99.9. Sodium 133, potassium 3.1, chloride 96, CO2 of 28, anion gap 12, BUN 19, creatinine 0.5, GFR greater than 60. Glucose 80, 68. Calcium 7.7, magnesium 1.6. ALT is 61. Troponin 0.16. Total protein 5.5, albumin is 2.3. Microbiology: Cultures are all negative. Chest x-ray: From this morning shows left lower lobe infiltrate and possible right and left pleural effusion and left lower lobe pneumonia and right lower lobe pneumonia. Cardiac catheterization this morning was done by Dr. Marcelo Parry, which was reviewed, which shows left ventricle ejection fraction of 60%; 60% to 70% stenosis of the proximal diagonal vessel; 50% to 60% stenosis of the proximal portion of the next second diagonal vessel noted. EKG done today this morning shows sinus rhythm with PVCs and PACs. Patient was seen by Pulmonary, ENT. IMPRESSION: 1. Recurrent relapsing acute ventilator-dependent hypoxic hypercarbic respiratory failure with severe respiratory acidosis. 2. Questionable non-ST elevation myocardial infarction with elevated troponin. 3. Status post cardiac catheterization. 4. Left ventricle ejection fraction of 60%. 5. 60 to 70% stenosis of the proximal portion of the second diagonal vessel. 6. Bibasilar bilateral multilobar possible aspiration versus ventilator-dependent pneumonia and pleural effusion. 7. Cardiomegaly. 8. Mild pulmonary vascular congestion. 9. Acute exacerbation of chronic obstructive pulmonary disease with reintubation secondary to recurrent relapsing acute hypoxic, hypercapnic respiratory failure with CO2 narcosis and hypercapnia. 10. Possible non-ST elevation myocardial infarction. 11. Severe sepsis with ventilator-dependent respiratory failure and bibasilar bilateral multilobar healthcare-associated versus ventilator-associated pneumonia with acute exacerbation of chronic obstructive pulmonary disease. 12. Possible diastolic congestive heart failure. 13. Low-grade fever. 14. Tachycardia. 15. Tachypnea. 16. Leukocytosis with leukopenia and normocytic anemia. 17. Granulocytosis. 18. Hypokalemia. 19. Hypomagnesemia. 20. Hypocalcemia. 21. Mild oropharyngeal dysphagia with [id number] risk for aspiration due to minimal fatigue, minimal oral residue, missing teeth, and multiple swallows needed per single bolus. 22. Hypothyroidism. 23. History of hypertension. 24. Hypovitaminosis D. 25. Hyperlipidemia. 26. Inotropic, pressor-dependent hypotension. 27. Toxic metabolic encephalopathy secondary to hypercarbia, hypoxemia, and respiratory acidosis. 1. Recurrent acute relapsing hypoxic hypercarbic hypercapnic respiratory failure, ventilator requiring and ventilator-dependent. 2. Ventilator-dependent and ventilator-requiring hypoxic and hypercarbic respiratory failure with carbon dioxide narcosis and hypoxemia and confusion and obtundation. 3. Hypotension. 4. Transient uncontrolled hypertension and hypertensive urgency. 5. Leukocytosis with granulocytosis. 6. Normocytic anemia. 7. Severe respiratory acidosis. 8. Ventilator-dependent respiratory failure. 9. Hypokalemia. 10. Questionable acute [id number] myocardial infarction with elevated troponin. 11. Transaminitis. 12. Healthcare-associated, ventilator-dependent multilobar bilateral pneumonia with volume loss and minimal right apical scarring. 13. Right upper lobe nodule. 14. Cardiomegaly. 15. Thyromegaly with thyroid calcification. 16. Degenerative joint disease of the spine. 17. T11-T12 subacute compression deformity. 18. Left lower chest and left upper anterior abdominal wall lipoma. 19. Adrenal gland hypertrophy. 20. Feeding dysfunction. 21. Status post left internal jugular triple-lumen catheter central line placement. 22. Questionable lateral ischemic changes on the EKG with left ventricular hypertrophy. 23. Severe sepsis with ventilator-dependent respiratory failure secondary to bilateral multilobar healthcare-associated versus ventilator-dependent pneumonia. 24. Acute exacerbation of chronic obstructive pulmonary disease. 25. Hypovitaminosis D. 26. Dyslipidemia. 27. History of constipation. 1. Questionable and possible steroid versus ICU psychosis with episodic confusion. 2. Acute exacerbation of chronic obstructive pulmonary disease. 3. Status post ventilator-dependent acute hypoxic hypercarbic respiratory failure. 4. Severe respiratory acidosis. 5. Uncontrolled hypertension. 6. Transient tachycardia. 7. Tachypnea. 8. Hypoxemia. 9. Transient leukopenia. 10. Granulocytosis. 11. Severe respiratory acidosis with hypercarbia, hypercapnia and CO2 narcosis with hypoxemia. 12. Refractory acute exacerbation of [id number] hypoxic hypercarbic respiratory failure with refractory slow resolving respiratory acidosis. 13. Metabolic alkalosis. 14. Steroid-induced hyperglycemia. 15. Transaminitis. 16. Hypovitaminosis D. 17. Acute exacerbation of chronic obstructive pulmonary disease with hyperinflation. 18. Questionable and possible ICU versus steroid psychosis. 1. Status post ventilator-dependent respiratory failure secondary to acute hypoxic hypercarbic respiratory failure with respiratory acidosis. 2. Acute exacerbation of chronic obstructive pulmonary disease. 3. Recurrent [id number] hypoxic hypercarbic respiratory failure with persistent hypercarbia and hypoxemia and respiratory acidosis. 4. Tachycardia. 5. Uncontrolled hypertension. 6. Tachypnea. 7. Hypoxemia. 8. Leukopenia. 9. Granulocytosis. 10. Persistent recurrent hcvvh-iy-zyvzwlj and acute recurrent hypoxic hypercarbic respiratory failure with respiratory acidosis. 11. Metabolic alkalosis. 12. Hyperglycemia. 13. Transaminitis. 14. Hypovitaminosis D. 15. Non-hemolyzed hyperkalemia. 16. Constipation. 17. Hypothyroidism. 18. Mild oropharyngeal dysphagia with [id number] aspiration risk secondary to minimal fatigue, minimal oral residue and missing teeth. 1. Acute exacerbation of chronic obstructive pulmonary disease. 2. Relapsing recurrent hypercarbia and respiratory acidosis. 3. Mild normocytic anemia with granulocytosis. 4. Non-hemolyzed hyperkalemia. 5. Metabolic alkalosis with rising pCO2. 6. Hyperglycemia. 7. Transaminitis. 8. Hypovitaminosis D. 9. Chronic obstructive pulmonary disease with pulmonary hyperinflation. 10. Left ventricular hypertrophy with repolarization abnormalities and possible anterior ischemic changes on the EKG. 11. Status post ventilator dependent. 12. Acute hypoxic hypercarbic respiratory failure with respiratory acidosis. 13. Acute exacerbation of chronic obstructive pulmonary disease with acute hypoxic respiratory failure with hypercapnia. 14. Acute exacerbation of chronic obstructive pulmonary disease with acute ventilator respiratory failure with hypercapnia. 15. Hypertensive cardiovascular disease with ejection fraction of 68%. 16. Concentric left ventricular hypertrophy with grade I abnormal relaxation patterns. 17. Moderately sclerotic aortic valve. 18. Moderate mitral regurgitation with moderately thickened mitral valve. 19. Trace tricuspid regurgitation. 1. Acute ventilator-dependent acute hypercarbic, hypoxemic respiratory failure and carbon dioxide narcosis. 2. Hypertension. 3. Persistent recurrent, refractor hypercarbia and mild respiratory acidosis. 4. Tachypnea. 5. Hypertension. 6. Mild normocytic anemia. 7. Granulocytosis. 8. Mild non-hemolyzed hyperkalemia. 9. Prerenal kidney injury. 10. Hyperglycemia. 11. Transaminitis. 12. Hypovitaminosis D. 13. Left ventricular ejection fraction of 68% with concentric left ventricular hypertrophy and grade 1 abnormal relaxation pattern. 14. Moderately dilated left atrium. 15. Moderately sclerotic aortic valve. 16. Moderately thickened mitral valve with moderate mitral regurgitation. 17. Hyperlipidemia. 18. Constipation. 1. Acute hypercarbic hypoxic respiratory failure with respiratory acidosis and hypercarbia and carbon dioxide narcosis. 2. Acute exacerbation of chronic obstructive pulmonary disease. 3. Acute ventilator-dependent hypercarbic hypercapnic hypoxic respiratory failure with severe respiratory acidosis. 4. Bronchospasm. 5. Severe acute exacerbation of chronic obstructive pulmonary disease. 6. Tachycardia. 7. Tachypnea. 8. Fever. 9. Febrile illness. 10. Questionable systemic inflammatory response syndrome. 11. Mild normocytic anemia. 12. Granulocytosis. 13. Recurrent hypercarbia and hypercapnia with mild respiratory acidosis and recurrent respiratory acidosis. 14. Prerenal kidney injury. 15. Transaminitis. 16. Hypovitaminosis D. 17. History of hypothyroidism. 18. Left ventricular ejection fraction of 68%. 19. Moderate concentric left ventricular hypertrophy. 20. Grade 1 abnormal relaxation pattern. 21. Moderately dilated left atrium. 22. Moderately sclerotic aortic valve. 23. Moderately thickened mitral valve with moderate mitral regurgitation. 24. Mild oropharyngeal dysphagia with low to moderate risk for aspiration due to minimal fatigue, minimal oral residue, missing teeth and multiple swallows. 25. History of hyperlipidemia. 1. Status post acute ventilator dependent hypercarbic hypoxic respiratory failure with carbon dioxide narcosis and respiratory acidosis. 2. Status post extubation. 3. Hypertension. 4. Mild normocytic anemia with granulocytosis. 5. Acute hypercarbic hypoxic ventilator-dependent respiratory failure, status post extubation with respiratory acidosis, hypercarbia and carbon dioxide narcosis. 6. Prerenal kidney injury. 7. Transaminitis. 8. Hypovitaminosis D. 9. Hypertensive cardiovascular disease with repolarization abnormalities. 10. Left ventricular ejection fraction of 68%. 11. Moderate concentric left ventricular hypertrophy with grade 1 abnormal relaxation pattern. 12. Moderately dilated left atrium. 13. Moderately sclerotic aortic valve. 14. Moderately thickened mitral valve with moderate mitral regurgitation. 15. Trace tricuspid regurgitation. 16. Carbon dioxide narcosis. 17. Acute exacerbation of severe chronic obstructive pulmonary disease. 18. History of hypothyroidism. 19. History of pulmonary hypertension. 20. High-grade fever of 101 degrees Fahrenheit. 21. Deconditioning. 22. Gait dysfunction. 23. History o hyperlipidemia. 24. History of constipation. 25. History of hypovitaminosis D. 1. Acute hypercarbic hypercapnic hypoxic ventilator-dependent respiratory failure with severe respiratory acidosis. 2. Resolving bronchospasm. 3. Fever of 100.8. 4. Mild normocytic anemia. 5. Granulocytosis. 6. Hypercarbia. 7. CO2 narcosis. 8. Transaminitis. 9. History of hypothyroidism. 10. Hypertensive cardiovascular disease with T-wave inversion I, aVL, V1 to V6. 11. Borderline hypokalemia. 1. Ventilator-dependent acute hypercarbic hypercapnic hypoxic respiratory failure with severe respiratory acidosis. 2. Bronchospasm. 3. Acute exacerbation of chronic obstructive pulmonary disease. 4. Normocytic anemia with granulocytosis. 5. Hypercarbia and hypercapnia. 6. Carbon dioxide narcosis. 7. Severe respiratory acidosis and hypoxemia. 8. Metabolic alkalosis. 9. Hyperglycemia. 10. Transaminitis. 11. Mild acute exacerbation of right-sided diastolic congestive heart failure with elevated BNP. 12. Indeterminate troponin. 13. Sinus tachycardia. 14. Left axis deviation. 15. Ventilator-dependent respiratory failure. 16. History of hypertension, hyperlipidemia, hypothyroidism, hypovitaminosis D. 17.Mild oropharyngeal dysphagia with [id number] risk for aspiration due to minimal fatigue, minimal oral residue, missing teeth and multiple swallows needed per single bolus PLAN: At this time, patient was seen by ENT and patient's family has not decided regarding tracheostomy yet. Patient's family including the sons and the daughter, Aggie Briggs have spoken to them on multiple occasions during the last 24 to 48 hours. Patient's daughter and the family has not decided regarding the tracheostomy at present. In addition, patient's case has also been referred to LTAC by the social worker school and case management with family's discussion. Time spent in the entire care is more than 35 minutes. Dictated and electronically signed, not read. Garett Rodríguez MD [facility]
[2017-12-26] MEDS: Ipratropium 0.02% Inhal Soln (0.5 mg/2.5 ml) UD IH SCH ×4 (01:27→19:15)
[2017-12-26] MEDS: Levalbuterol 0.63 MG/3 ML Inhal Soln UD IH SCH ×4 (01:27→21:00)
[2017-12-26] MEDS: Cefepime IV 2 gm in NS 2 GM/100 ML BAG IVPB SCH ×3 (05:49→22:26)
[2017-12-26 06:16] LABS: ARTERIAL BLOOD GAS HCO3 24.8 mmol/L (21-28); ARTERIAL BLOOD GAS HEMOGLOBIN 12.3 g/dL (11.7-17.4); ARTERIAL BLOOD GAS O2 SAT 99.9 % (95-98); ARTERIAL BLOOD GAS PCO2 41 mm/Hg (35-45); ARTERIAL BLOOD GAS PH 7.39 (7.35-7.45); ARTERIAL BLOOD GAS TCO2 26.1 mmol.L (22-28)
[2017-12-26 06:46] LABS: GRAN # 3.89 (1.4-6.5); GRAN % 86.4 % (50.0-68.0); HEMOGLOBIN 11.8 g/dL (12.0-16.0); LYMPH # 0.5 (1.2-3.4); MEAN CELL VOLUME 88.6 fl (80.0-105.0); MEAN CORPUSCULAR HEMOGLOBIN 29.4 pg (25.0-35.0); MEAN CORPUSCULAR HGB CONC 33.1 g/dl (31.0-37.0); MEAN PLATELET VOLUME 11.2 fl (7.0-11.0); MONO # 0.2 (0.1-0.6); MONO % 3.6 % (1.0-6.0); RBC 4.02 10^6/uL (3.5-6.1); RED CELL DISTRIBUTION WIDTH 14.3 % (11.5-14.5); WHITE BLOOD COUNT 4.5 10^3/ul (4.5-11.0)
[2017-12-26 07:10] LABS: TROPONIN I 0.09 ng/mL
[2017-12-26 07:13] LABS: ALB/GLOB RATIO 1.4 (1.1-1.8); ALBUMIN 3.2 g/dL (3.0-4.8); ALT/SGPT 57 U/L (7-56); AST/SGOT 29 U/L (14-36); BILIRUBIN,DIRECT 0.1 mg/dL (0.0-0.4); BLOOD UREA NITROGEN 14 mg/dL (7-21); CALCIUM 8.1 mg/dL (8.4-10.5); GFR AFRICAN-AMERICAN > 60; GFR NON-AFRICAN AMERICAN > 60
[2017-12-26] MEDS: Budesonide 0.5 mg/2 ml Inhal Susp UD IH SCH ×2 (07:38→19:15)
--- NOTE | 2017-12-26 08:22 | PN ---
DATE: 12/26/2017 PULMONARY NOTE SUBJECTIVE: The patient remains on the ventilator. She remains on CPAP and pressure support. She is awake and alert. PHYSICAL EXAMINATION: VITAL SIGNS: Temperature is 98.1, pulse 73, respirations 18, blood pressure 99/71. HEENT: Normocephalic, atraumatic. No JVD. CARDIOVASCULAR: Systolic ejection murmur at the lower left sternal border. No S3 gallop. LUNGS: Decreased breath sounds at the bases. Minimal/less rhonchi. No wheezing. EXTREMITIES: No clubbing, cyanosis or edema. Calves are nontender to palpation. GI: Abdomen is soft, nontender and nondistended. Bowel sounds are positive. SKIN: No acute rash. NEUROLOGIC: Limited at the present time. PERTINENT LABORATORY DATA: Chest x-ray was done this morning and reviewed. The chest x-ray is not significantly changed from the previous film. Arterial blood gas was done on CPAP and pressure support this morning. Results are: PH 7.39, pCO2 of 41, pO2 of 114. IMPRESSION: 1. Recurrent respiratory failure. 2. Left lower lobe pneumonia. 3. Sepsis syndrome. 4. Hypotension - resolving. 5. Mild anemia. 6. Positive troponin. PLAN: The patient remains intubated. She is currently on CPAP and pressure support. She is awake and alert. I did discuss the case with the night nurse at length. The night nurse stated that the patient had a very good night. I did review the chest x-ray as above. The chest x-ray is not significantly changed from the previous film. I have also reviewed the arterial blood gas. The arterial blood gas also is improved with no CO2 retention. I did discuss the case with Dr. Rodriguez (ICU) at length yesterday. We are awaiting additional family decisions - possible tracheostomy. On physical exam, there is definitely less bronchospasm noted. I will continue with the current nebulizer treatments and inhaled steroids for now. I would also continue with the antibiotic coverage as per Infectious Disease. Temperatures have resolved. The leukocytosis has also resolved. The clinical status of the patient is significantly improved - compared to a few days ago. However, her future status/prognosis does remain very guarded. I will discuss the above with the entire ICU team in the next few moments. I will also discuss the above with the attending physician later this morning. Edin Aguila MD [facility] # [id number] MTDBrandy
--- NOTE | 2017-12-26 09:51 | PN ---
DATE: 12/26/2017 SUBJECTIVE: The patient is seen in CCU bed 3. The patient is intubated, on a respirator. The patient's son is at bedside. The patient is awake, responsive. The patient is communicating by writing. According to the nurses, the patient is complaining of soreness around the ET tube site. Overnight nurse's notes were reviewed. No adverse events were documented. OBJECTIVE: VITAL SIGNS: T-max 99.9. Telemetry shows sinus rhythm. Heart rate 73, 74, 78, 83. Blood pressure in the last 24 hours has a few episodes of blood pressure under 100 systolic. Average blood pressure in the last 24 hours in 120s and 130 systolic. O2 sat is 98-100%. INTAKE AND OUTPUT: Output was 12 80 yesterday and 1700 today. HEENT: Head examination, normocephalic and atraumatic. HEENT examination shows pinkish conjunctivae. Anicteric sclerae. No oropharyngeal lesion. No neck rigidity. CHEST: Examination, kyphosis. LUNGS: Examination shows no audible crackles, rales or wheezing. CARDIOVASCULAR: Examination is S1, S2. Regular rhythm. Positive systolic murmur, left sternal border, right second intercostal space, left second intercostal space. ABDOMEN: Soft. Positive bowel sound. GENITALIA: Female. RECTAL: Examination is deferred. EXTREMITIES: Shows no pitting edema, no calf tenderness, no Mckenna sign. NEUROLOGIC: The patient is alert, awake, responsive. Intubated. Examination is limited. MUSCULOSKELETAL: Examination shows a body mass index of 31.3. DIAGNOSTICS: , WBC 4.5, hemoglobin and hematocrit 11.8 and 35.6, platelets 186. Granulocytes 86% segs. ABG on 35% FiO2, pH of 7.39, pCO2 41, pO2 114, bicarbonate 26, saturation of 99.9. Sodium 143, potassium 3.8, chloride 106, CO2 28, anion gap 12, BUN 14, creatinine 0.5, GFR greater than 60, glucose 84, calcium 8.1, magnesium 2.1. LFTs shows AST of 57. Hepatitis A, B, C serologies are negative. Blood cultures, sputum cultures, urine cultures are negative. Chest x-ray from this morning was reviewed. Density in the right middle lobe, right lower lobe and left base noted. EKG shows sinus rhythm with lateral changes. IMPRESSION AND PLAN: 1. Acute recurrent ventilator dependent respiratory failure with respiratory acidosis, hypercapnic hypercarbic respiratory failure. 2. Multilobar bilateral pneumonia, healthcare-associated pneumonia versus ventilator-associated pneumonia. 3. Transient hypotension. 4. Ventilator-dependent respiratory failure. 5. Leukopenia and leukocytosis. 6. Granulocytosis. 7. Normocytic anemia. 8. Transaminitis. 9. Hypertensive cardiovascular disease with left ventricular hypertrophy. 10. Pleural effusion. 11. Pulmonary vascular congestion and congestive heart failure. 1. Recurrent relapsing acute ventilator-dependent hypoxic hypercarbic respiratory failure with severe respiratory acidosis. 2. Questionable non-ST elevation myocardial infarction with elevated troponin. 3. Status post cardiac catheterization. 4. Left ventricle ejection fraction of 60%. 5. 60 to 70% stenosis of the proximal portion of the second diagonal vessel. 6. Bibasilar bilateral multilobar possible aspiration versus ventilator-dependent pneumonia and pleural effusion. 7. Cardiomegaly. 8. Mild pulmonary vascular congestion. 9. Acute exacerbation of chronic obstructive pulmonary disease with reintubation secondary to recurrent relapsing acute hypoxic, hypercapnic respiratory failure with CO2 narcosis and hypercapnia. 10. Possible non-ST elevation myocardial infarction. 11. Severe sepsis with ventilator-dependent respiratory failure and bibasilar bilateral multilobar healthcare-associated versus ventilator-associated pneumonia with acute exacerbation of chronic obstructive pulmonary disease. 12. Possible diastolic congestive heart failure. 13. Low-grade fever. 14. Tachycardia. 15. Tachypnea. 16. Leukocytosis with leukopenia and normocytic anemia. 17. Granulocytosis. 18. Hypokalemia. 19. Hypomagnesemia. 20. Hypocalcemia. 21. Mild oropharyngeal dysphagia with [id number] risk for aspiration due to minimal fatigue, minimal oral residue, missing teeth, and multiple swallows needed per single bolus. 22. Hypothyroidism. 23. History of hypertension. 24. Hypovitaminosis D. 25. Hyperlipidemia. 26. Inotropic, pressor-dependent hypotension. 27. Toxic metabolic encephalopathy secondary to hypercarbia, hypoxemia, and respiratory acidosis. 1. Recurrent acute relapsing hypoxic hypercarbic hypercapnic respiratory failure, ventilator requiring and ventilator-dependent. 2. Ventilator-dependent and ventilator-requiring hypoxic and hypercarbic respiratory failure with carbon dioxide narcosis and hypoxemia and confusion and obtundation. 3. Hypotension. 4. Transient uncontrolled hypertension and hypertensive urgency. 5. Leukocytosis with granulocytosis. 6. Normocytic anemia. 7. Severe respiratory acidosis. 8. Ventilator-dependent respiratory failure. 9. Hypokalemia. 10. Questionable acute [id number]-[id number] myocardial infarction with elevated troponin. 11. Transaminitis. 12. Healthcare-associated, ventilator-dependent multilobar bilateral pneumonia with volume loss and minimal right apical scarring. 13. Right upper lobe nodule. 14. Cardiomegaly. 15. Thyromegaly with thyroid calcification. 16. Degenerative joint disease of the spine. 17. T11-T12 subacute compression deformity. 18. Left lower chest and left upper anterior abdominal wall lipoma. 19. Adrenal gland hypertrophy. 20. Feeding dysfunction. 21. Status post left internal jugular triple-lumen catheter central line placement. 22. Questionable lateral ischemic changes on the EKG with left ventricular hypertrophy. 23. Severe sepsis with ventilator-dependent respiratory failure secondary to bilateral multilobar healthcare-associated versus ventilator-dependent pneumonia. 24. Acute exacerbation of chronic obstructive pulmonary disease. 25. Hypovitaminosis D. 26. Dyslipidemia. 27. History of constipation. 1. Questionable and possible steroid versus ICU psychosis with episodic confusion. 2. Acute exacerbation of chronic obstructive pulmonary disease. 3. Status post ventilator-dependent acute hypoxic hypercarbic respiratory failure. 4. Severe respiratory acidosis. 5. Uncontrolled hypertension. 6. Transient tachycardia. 7. Tachypnea. 8. Hypoxemia. 9. Transient leukopenia. 10. Granulocytosis. 11. Severe respiratory acidosis with hypercarbia, hypercapnia and CO2 narcosis with hypoxemia. 12. Refractory acute exacerbation of [id number] hypoxic hypercarbic respiratory failure with refractory slow resolving respiratory acidosis. 13. Metabolic alkalosis. 14. Steroid-induced hyperglycemia. 15. Transaminitis. 16. Hypovitaminosis D. 17. Acute exacerbation of chronic obstructive pulmonary disease with hyperinflation. 18. Questionable and possible ICU versus steroid psychosis. 1. Status post ventilator-dependent respiratory failure secondary to acute hypoxic hypercarbic respiratory failure with respiratory acidosis. 2. Acute exacerbation of chronic obstructive pulmonary disease. 3. Recurrent bgyqj-xb-zlyijfc hypoxic hypercarbic respiratory failure with persistent hypercarbia and hypoxemia and respiratory acidosis. 4. Tachycardia. 5. Uncontrolled hypertension. 6. Tachypnea. 7. Hypoxemia. 8. Leukopenia. 9. Granulocytosis. 10. Persistent recurrent yqtbh-[id number] and acute recurrent hypoxic hypercarbic respiratory failure with respiratory acidosis. 11. Metabolic alkalosis. 12. Hyperglycemia. 13. Transaminitis. 14. Hypovitaminosis D. 15. Non-hemolyzed hyperkalemia. 16. Constipation. 17. Hypothyroidism. 18. Mild oropharyngeal dysphagia with [id number] aspiration risk secondary to minimal fatigue, minimal oral residue and missing teeth. 1. Acute exacerbation of chronic obstructive pulmonary disease. 2. Relapsing recurrent hypercarbia and respiratory acidosis. 3. Mild normocytic anemia with granulocytosis. 4. Non-hemolyzed hyperkalemia. 5. Metabolic alkalosis with rising pCO2. 6. Hyperglycemia. 7. Transaminitis. 8. Hypovitaminosis D. 9. Chronic obstructive pulmonary disease with pulmonary hyperinflation. 10. Left ventricular hypertrophy with repolarization abnormalities and possible anterior ischemic changes on the EKG. 11. Status post ventilator dependent. 12. Acute hypoxic hypercarbic respiratory failure with respiratory acidosis. 13. Acute exacerbation of chronic obstructive pulmonary disease with acute hypoxic respiratory failure with hypercapnia. 14. Acute exacerbation of chronic obstructive pulmonary disease with acute ventilator respiratory failure with hypercapnia. 15. Hypertensive cardiovascular disease with ejection fraction of 68%. 16. Concentric left ventricular hypertrophy with grade I abnormal relaxation patterns. 17. Moderately sclerotic aortic valve. 18. Moderate mitral regurgitation with moderately thickened mitral valve. 19. Trace tricuspid regurgitation. 1. Acute ventilator-dependent acute hypercarbic, hypoxemic respiratory failure and carbon dioxide narcosis. 2. Hypertension. 3. Persistent recurrent, refractor hypercarbia and mild respiratory acidosis. 4. Tachypnea. 5. Hypertension. 6. Mild normocytic anemia. 7. Granulocytosis. 8. Mild non-hemolyzed hyperkalemia. 9. Prerenal kidney injury. 10. Hyperglycemia. 11. Transaminitis. 12. Hypovitaminosis D. 13. Left ventricular ejection fraction of 68% with concentric left ventricular hypertrophy and grade 1 abnormal relaxation pattern. 14. Moderately dilated left atrium. 15. Moderately sclerotic aortic valve. 16. Moderately thickened mitral valve with moderate mitral regurgitation. 17. Hyperlipidemia. 18. Constipation. 1. Acute hypercarbic hypoxic respiratory failure with respiratory acidosis and hypercarbia and carbon dioxide narcosis. 2. Acute exacerbation of chronic obstructive pulmonary disease. 3. Acute ventilator-dependent hypercarbic hypercapnic hypoxic respiratory failure with severe respiratory acidosis. 4. Bronchospasm. 5. Severe acute exacerbation of chronic obstructive pulmonary disease. 6. Tachycardia. 7. Tachypnea. 8. Fever. 9. Febrile illness. 10. Questionable systemic inflammatory response syndrome. 11. Mild normocytic anemia. 12. Granulocytosis. 13. Recurrent hypercarbia and hypercapnia with mild respiratory acidosis and recurrent respiratory acidosis. 14. Prerenal kidney injury. 15. Transaminitis. 16. Hypovitaminosis D. 17. History of hypothyroidism. 18. Left ventricular ejection fraction of 68%. 19. Moderate concentric left ventricular hypertrophy. 20. Grade 1 abnormal relaxation pattern. 21. Moderately dilated left atrium. 22. Moderately sclerotic aortic valve. 23. Moderately thickened mitral valve with moderate mitral regurgitation. 24. Mild oropharyngeal dysphagia with low to moderate risk for aspiration due to minimal fatigue, minimal oral residue, missing teeth and multiple swallows. 25. History of hyperlipidemia. 1. Status post acute ventilator dependent hypercarbic hypoxic respiratory failure with carbon dioxide narcosis and respiratory acidosis. 2. Status post extubation. 3. Hypertension. 4. Mild normocytic anemia with granulocytosis. 5. Acute hypercarbic hypoxic ventilator-dependent respiratory failure, status post extubation with respiratory acidosis, hypercarbia and carbon dioxide narcosis. 6. Prerenal kidney injury. 7. Transaminitis. 8. Hypovitaminosis D. 9. Hypertensive cardiovascular disease with repolarization abnormalities. 10. Left ventricular ejection fraction of 68%. 11. Moderate concentric left ventricular hypertrophy with grade 1 abnormal relaxation pattern. 12. Moderately dilated left atrium. 13. Moderately sclerotic aortic valve. 14. Moderately thickened mitral valve with moderate mitral regurgitation. 15. Trace tricuspid regurgitation. 16. Carbon dioxide narcosis. 17. Acute exacerbation of severe chronic obstructive pulmonary disease. 18. History of hypothyroidism. 19. History of pulmonary hypertension. 20. High-grade fever of 101 degrees Fahrenheit. 21. Deconditioning. 22. Gait dysfunction. 23. History o hyperlipidemia. 24. History of constipation. 25. History of hypovitaminosis D. 1. Acute hypercarbic hypercapnic hypoxic ventilator-dependent respiratory failure with severe respiratory acidosis. 2. Resolving bronchospasm. 3. Fever of 100.8. 4. Mild normocytic anemia. 5. Granulocytosis. 6. Hypercarbia. 7. CO2 narcosis. 8. Transaminitis. 9. History of hypothyroidism. 10. Hypertensive cardiovascular disease with T-wave inversion I, aVL, V1 to V6. 11. Borderline hypokalemia. 1. Ventilator-dependent acute hypercarbic hypercapnic hypoxic respiratory failure with severe respiratory acidosis. 2. Bronchospasm. 3. Acute exacerbation of chronic obstructive pulmonary disease. 4. Normocytic anemia with granulocytosis. 5. Hypercarbia and hypercapnia. 6. Carbon dioxide narcosis. 7. Severe respiratory acidosis and hypoxemia. 8. Metabolic alkalosis. 9. Hyperglycemia. 10. Transaminitis. 11. Mild acute exacerbation of right-sided diastolic congestive heart failure with elevated BNP. 12. Indeterminate troponin. 13. Sinus tachycardia. 14. Left axis deviation. 15. Ventilator-dependent respiratory failure. 16. History of hypertension, hyperlipidemia, hypothyroidism, hypovitaminosis D. 17.Mild oropharyngeal dysphagia with [id number] risk for aspiration due to minimal fatigue, minimal oral residue, missing teeth and multiple swallows needed per single bolus This patient is presently on pressure support and PEEP with FiO2 of ____ on therapeutic intervention. The patient's family is yet to decide about possibility of tracheostomy. In the meantime, we will consider starting TPN. The patient has been ordered repeat labs, ABG. CURRENT CONSULTATIONS: 1. Cardiology. 2. Infectious Disease. 3. ENT. 4. Neurology. 5. Pulmonary. MEDICATIONS: Hydralazine 10 mg IV every 6 hours p.r.n., aspirin 325 mg daily, Atrovent nebulizer 0.5 mg every 6 hours and 0.5 every 2 hours p.r.n., doxycycline 100 mg p.o. every 12 hours, Drisdol 50,000 weekly, Lipitor 10 mg daily, Lovenox 40 mg subcutaneously daily, cefepime 2 g IV every 8 hours and started by Dr[address] Francisco, MiraLax 17 g daily, Protonix 40 IV every 12 hours, Pulmicort nebulizer 1 mg every 12, Solu-Cortef 50 mg IV every 8 hours, Tylenol suppository p.r.n., vancomycin 1 g IV every 12 hours, Xopenex nebulizer 0.63 mg p.o. four times a day and every 2 hours p.r.n., Zofran 4 mg IV every 4 hours. Repeat chest x-ray has been ordered. The patient has been ordered ADRIANNA Vega. Prognosis guarded. Family aware. Dictated and electronically signed, not read. Garett Rodríguez MD [facility]
--- NOTE | 2017-12-26 10:13 | RAD ---
HISTORY: f/u COMPARISON: 12/25/2017 FINDINGS: LUNGS: There is an infiltrate at the left lung base that obscures the diaphragm. Central lines and tubes remain in satisfactory position PLEURA: No significant pleural effusion identified, no pneumothorax apparent. CARDIOVASCULAR: Normal. OSSEOUS STRUCTURES: No significant abnormalities. VISUALIZED UPPER ABDOMEN: Normal. OTHER FINDINGS: None. IMPRESSION: There is an infiltrate at the left lung base that obscures the diaphragm. Central lines and tubes remain in satisfactory position
[2017-12-26 10:43] LABS: ARTERIAL BLOOD GAS HCO3 22.6 mmol/L (21-28); ARTERIAL BLOOD GAS HEMOGLOBIN 11.8 g/dL (11.7-17.4); ARTERIAL BLOOD GAS O2 CAPACITY 16.5 mL/dl (16-24); ARTERIAL BLOOD GAS O2 CONTENT 16.5 ML/dl (15-23); ARTERIAL BLOOD GAS O2 SAT 100.1 % (95-98); ARTERIAL BLOOD GAS PCO2 40 mm/Hg (35-45); ARTERIAL BLOOD GAS PH 7.36 (7.35-7.45); ARTERIAL BLOOD GAS TCO2 23.8 mmol.L (22-28)
[2017-12-26] MEDS: Vancomycin 1gm in NS 250ml 1 GM/250 ML BAG IVPB SCH ×2 (10:57→22:27)
[2017-12-26] MEDS: POLYETHYLENE GLYCOL 3350 17 GM/Dose PACKET PO SCH (10:57)
[2017-12-26] MEDS: Enoxaparin 40 mg Syringe SC SCH (11:01)
[2017-12-26] MEDS ORDERED: Potassium Chloride 20 mEq ER Tab PO STA (11:40)
[2017-12-26] MEDS ORDERED: Potassium Chloride 40 mEq/30 ml LIQ UD PO ONE (11:52)
--- NOTE | 2017-12-26 12:30 | CP.CCUPN ---
<Venancio Olivera - Last Filed: 12/26/17 12:27> CCU Subjective - Physician Review Subjective (Free Text): 12/26/17 09:00A Patient seen and examined status post cardiac catheterization. Patient is awake alert and oriented now and is doing well. She writes on pad that she would like to use bathroom and get out of bed. No acute complaints at present. Patient had an acute bout of SVT @ 130 and sustained VT, resolved now; patient' s VS otherwise stable and she had no clinical symptoms. Dr. Parry notified. CCU Objective - Vital Signs / Intake & Output Intake and Output (Last 8hrs): Intake & Output 12/25/17 12/26/17 12/26/17 22:59 06:59 14:59 Intake Total 1700 1650 Output Total 1280 1700 Balance 420 -50 Intake: IV 1700 1650 Left Antecubital 700 1400 Left Internal Jugular 1000 vancomycin 250 Output: Urine 1280 1700 Urethral ([place]) 1280 1700 - Physical Exam Head: Positive for: Atraumatic, Normocephalic Pupils: Positive for: PERRL. Negative for: Non-Reactive, Pinpoint Extroacular Muscles: Positive for: EOMI. Negative for: Gaze Palsy, Entrapment Conjunctiva: Positive for: Normal. Negative for: Injected, Icteric Mouth: Positive for: Moist Mucous Membranes, Normal Lips, Normal Tounge. Negative for: Drooling Nose (External): Positive for: Atraumatic. Negative for: Abrasion, Laceration Nose (Internal): Positive for: Normal Inspection, No Active Bleeding. Negative for: Epistaxis Neck: Positive for: Normal Range of Motion. Negative for: Meningeal Signs, MIDLINE TENDERNESS, Paraspinal Tenderness, JVD Respiratory/Chest: Positive for: Clear to Auscultation, Good Air Exchange, Decreased Breath Sounds (mildly decreased breath sounds all bauer, again improved over prior exams). Negative for: Respiratory Distress, Accessory Muscle Use, Wheezes (no further wheezing appreciated on exam today), Rales, Rhonchi Cardiovascular: Positive for: Regular Rate and Rhythm, Normal S1, S2. Negative for: Murmurs, Irregular Rhythm, Tachycardic, Bradycardic Abdomen: Negative for: Tenderness, Distention, Peritoneal Signs Back: Positive for: Normal Inspection. Negative for: CVA Tenderness, Midline Tenderness, Paraspinal Tenderness Upper Extremity: Positive for: Normal Inspection, Normal ROM, NORMAL PULSES. Negative for: Cyanosis, Edema, Tenderness, Swelling, Erythema, Deformity Lower Extremity: Positive for: Normal Inspection, NORMAL PULSES, Normal ROM. Negative for: Edema, CALF TENDERNESS, Cyanosis, Tenderness, Swelling, Erythema, Deformity Neurological: Positive for: GCS=15, Speech Normal, Motor Func Grossly Intact, Normal Sensory Function, Other (following all commands appropriately, no appreciable lethargy/somnolence) Skin: Positive for: Warm, Dry, Normal Color. Negative for: Rashes Psychiatric: Positive for: Alert, Oriented x 3 (x4 (self, location, year, president)), Normal Insight, Normal Concentration, Normal Affect, Normal Mood - Medications Active Medications: Active Medications Generic Name Dose Route Start Last Admin Trade Name Freq PRN Reason Stop Dose Admin Acetaminophen 650 mg 12/16/17 19:09 12/17/17 08:30 Tylenol 650 Mg Supp RC 650 mg Q6H PRN Administration TEMP>=99.5F Aspirin 325 mg 12/20/17 10:00 12/25/17 12:06 Aspirin PO 325 mg DAILY DAVE Administration Atorvastatin Calcium 10 mg 12/19/17 17:00 12/25/17 16:09 Lipitor PO 10 mg DIN DAVE Administration Budesonide 1 mg 12/22/17 20:00 12/26/17 07:38 Pulmicort Respules IH 1 mg [id number] DAVE Administration Doxycycline Hyclate 100 mg 12/19/17 22:00 12/25/17 22:01 Doryx PO 100 mg Q12 DAVE Administration Enoxaparin Sodium 40 mg 12/17/17 10:00 12/26/17 11:01 Lovenox SC 40 mg DAILY DAVE Administration Protocol Ergocalciferol 1 cap 12/20/17 10:00 12/20/17 10:07 Drisdol 50,000 Intl Units Cap PO 1 cap Q7D DAVE Administration Hydralazine HCl 10 mg 12/23/17 14:29 12/23/17 14:30 Apresoline IVP 10 mg Q6 PRN Administration Systolic Blood Pressure Hydrocortisone Sodium Succinate 50 mg 12/25/17 12:00 12/26/17 10:59 Solu-Cortef IVP 50 mg Q8H DAVE Administration NOREPINEPHRINE BIT/0.9 % NACL 4 mg in 250 mls @ 15 mls/hr 12/23/17 17:07 01/05 07:38 Levophed 4 Mg/ 250 Ml Ns Premixed IV 0 mcg/min .[id number] PRN 0 mls/hr TITRATE PER MD ORDER Titration Protocol 4 MCG/MIN Vasopressin 20 units/ Dextrose 101 mls @ 9.09 mls/hr 12/23/17 18:00 12/24/17 16:31 IV 9.09 mls/hr .[id number] DAVE Administration Protocol 0.03 U/MIN Vancomycin HCl 1 gm in 250 mls @ 167 mls/hr 12/24/17 10:00 12/26/17 10:57 Vancomycin 1gm IVPB 167 mls/hr Q12 DAVE Administration Protocol Cefepime HCl 2 gm in 100 mls @ 100 mls/hr 12/24/17 09:15 12/26/17 05:49 Maxipime 2gm IVPB 12/29/17 09:16 100 mls/hr Q8 DAVE Administration Protocol Ipratropium [place] 0.5 mg 12/22/17 14:00 12/26/17 07:38 Atrovent IH 0.5 mg [id number] DAVE Administration Ipratropium [place] 0.5 mg 12/22/17 12:21 Atrovent IH Q2H PRN Shortness of Breath Levalbuterol HCl 0.63 mg 12/16/17 15:37 Xopenex IH Q2 PRN Shortness of Breath Levalbuterol HCl 0.63 mg 12/22/17 08:00 12/26/17 07:38 Xopenex IH 0.63 mg 0200,0800,1400,2000 DAVE Administration Ondansetron HCl 4 mg 12/16/17 19:09 Zofran Inj IVP Q4H PRN Nausea/Vomiting Pantoprazole Sodium 40 mg 12/23/17 22:00 12/25/17 22:02 Protonix Inj IVP 40 mg Q12 DAVE Administration Polyethylene Glycol 17 gm 12/19/17 10:30 12/26/17 10:57 Miralax PO 17 gm DAILY DAVE Administration - Patient Studies Lab Studies: Microbiology Studies 12/23/17 19:15 Blood Culture - Preliminary Blood NO GROWTH AFTER 48 HOURS 12/23/17 18:15 Blood Culture - Preliminary Blood NO GROWTH AFTER 48 HOURS 12/23/17 17:00 Urine Culture - Final Urine,Catheterized No Growth (<1,000 CFU/ML) 12/23/17 17:00 Gram Stain - Final Sputum Sputum Culture - Final NORMAL ORAL RUSLAN Lab Studies 12/26/17 12/26/17 12/26/17 Range/Units 10:35 06:10 05:40 WBC 4.5 (4.5-11.0) 10^3/ul RBC 4.02 (3.5-6.1) 10^6/uL Hgb 11.8 L (12.0-16.0) g/dL Hct 35.6 L (36.0-48.0) % MCV 88.6 (80.0-105.0) fl MCH 29.4 (25.0-35.0) pg MCHC 33.1 (31.0-37.0) g/dl RDW 14.3 (11.5-14.5) % Plt Count 186 (120.0-450.0) 10^3/uL MPV 11.2 H (7.0-11.0) fl Gran % 86.4 H (50.0-68.0) % Lymph % (Auto) 10.0 L (22.0-35.0) % [place] % (Auto) 3.6 (1.0-6.0) % Eos % (Auto) 0.0 L (1.5-5.0) % Baso % (Auto) 0.0 (0.0-3.0) % Gran # 3.89 (1.4-6.5) Lymph # (Auto) 0.5 L (1.2-3.4) [place] # (Auto) 0.2 (0.1-0.6) Eos # (Auto) 0.0 (0.0-0.7) Baso # (Auto) 0.00 (0.0-2.0) K/mm3 PT (9.4-12.5) SECONDS INR (0.93-1.08) APTT (25.1-36.5) Seconds pCO2 40 41 (35-45) mm/Hg pO2 136.0 H 114.0 H (80-100) mm/Hg HCO3 22.6 24.8 (21-28) mmol/L ABG pH 7.36 7.39 (7.35-7.45) ABG Total CO2 23.8 26.1 (22-28) mmol.L ABG O2 Saturation 100.1 H 99.9 H (95-98) % ABG O2 Content 16.5 17.0 (15-23) ML/dl ABG Base Excess -2.7 L -0.2 (-2.0-3.0) mmol/L ABG Hemoglobin 11.8 12.3 (11.7-17.4) g/dL ABG Carboxyhemoglobin 1.5 1.7 H (0.5-1.5) % POC ABG HHb (Measured) -0.1 L 0.1 (0-5) % ABG Methemoglobin 0.8 1.0 (0.0-3.0) % ABG O2 Capacity 16.5 17.0 (16-24) mL/dl Hgb O2 Saturation 97.8 97.3 (95.0-98.0) % FiO2 35.0 35.0 % Sodium (132-148) mmol/L Potassium (3.6-5.0) mmol/L Chloride (98-107) mmol/L Carbon Dioxide (21-33) mmol/L Anion Gap (10-20) BUN (7-21) mg/dL Creatinine (0.7-1.2) mg/dl Est GFR ( Amer) Est GFR (Non-Af Amer) POC Glucose (mg/dL) (65-110) mg/dL Random Glucose (70-110) mg/dL Calcium (8.4-10.5) mg/dL Magnesium (1.7-2.2) mg/dL Total Bilirubin (0.2-1.3) mg/dL Direct Bilirubin (0.0-0.4) mg/dL AST (14-36) U/L ALT (7-56) U/L Alkaline Phosphatase (38-126) U/L Troponin I ng/mL Total Protein (5.8-8.3) g/dL Albumin (3.0-4.8) g/dL Globulin gm/dL Albumin/Globulin Ratio (1.1-1.8) 12/26/17 12/26/17 12/25/17 Range/Units 05:40 00:06 18:32 WBC (4.5-11.0) 10^3/ul RBC (3.5-6.1) 10^6/uL Hgb (12.0-16.0) g/dL Hct (36.0-48.0) % MCV (80.0-105.0) fl MCH (25.0-35.0) pg MCHC (31.0-37.0) g/dl RDW (11.5-14.5) % Plt Count (120.0-450.0) 10^3/uL MPV (7.0-11.0) fl Gran % (50.0-68.0) % Lymph % (Auto) (22.0-35.0) % [place] % (Auto) (1.0-6.0) % Eos % (Auto) (1.5-5.0) % Baso % (Auto) (0.0-3.0) % Gran # (1.4-6.5) Lymph # (Auto) (1.2-3.4) [place] # (Auto) (0.1-0.6) Eos # (Auto) (0.0-0.7) Baso # (Auto) (0.0-2.0) K/mm3 PT (9.4-12.5) SECONDS INR (0.93-1.08) APTT (25.1-36.5) Seconds pCO2 (35-45) mm/Hg pO2 (80-100) mm/Hg HCO3 (21-28) mmol/L ABG pH (7.35-7.45) ABG Total CO2 (22-28) mmol.L ABG O2 Saturation (95-98) % ABG O2 Content (15-23) ML/dl ABG Base Excess (-2.0-3.0) mmol/L ABG Hemoglobin (11.7-17.4) g/dL ABG Carboxyhemoglobin (0.5-1.5) % POC ABG HHb (Measured) (0-5) % ABG Methemoglobin (0.0-3.0) % ABG O2 Capacity (16-24) mL/dl Hgb O2 Saturation (95.0-98.0) % FiO2 % Sodium 143 (132-148) mmol/L Potassium 3.8 (3.6-5.0) mmol/L Chloride 106 (98-107) mmol/L Carbon Dioxide 28 (21-33) mmol/L Anion Gap 12 (10-20) BUN 14 (7-21) mg/dL Creatinine 0.5 L (0.7-1.2) mg/dl Est GFR ( Amer) > 60 Est GFR (Non-Af Amer) > 60 POC Glucose (mg/dL) 74 78 (65-110) mg/dL Random Glucose 84 (70-110) mg/dL Calcium 8.1 L (8.4-10.5) mg/dL Magnesium 2.1 (1.7-2.2) mg/dL Total Bilirubin 0.7 (0.2-1.3) mg/dL Direct Bilirubin 0.1 (0.0-0.4) mg/dL AST 29 (14-36) U/L ALT 57 H (7-56) U/L Alkaline Phosphatase 51 (38-126) U/L Troponin I 0.09 D ng/mL Total Protein 5.6 L (5.8-8.3) g/dL Albumin 3.2 (3.0-4.8) g/dL Globulin 2.4 gm/dL Albumin/Globulin Ratio 1.4 (1.1-1.8) /02/04 Range/Units 15:24 WBC (4.5-11.0) 10^3/ul RBC (3.5-6.1) 10^6/uL Hgb (12.0-16.0) g/dL Hct (36.0-48.0) % MCV (80.0-105.0) fl MCH (25.0-35.0) pg MCHC (31.0-37.0) g/dl RDW (11.5-14.5) % Plt Count (120.0-450.0) 10^3/uL MPV (7.0-11.0) fl Gran % (50.0-68.0) % Lymph % (Auto) (22.0-35.0) % [place] % (Auto) (1.0-6.0) % Eos % (Auto) (1.5-5.0) % Baso % (Auto) (0.0-3.0) % Gran # (1.4-6.5) Lymph # (Auto) (1.2-3.4) [place] # (Auto) (0.1-0.6) Eos # (Auto) (0.0-0.7) Baso # (Auto) (0.0-2.0) K/mm3 PT 13.0 H (9.4-12.5) SECONDS INR 1.14 H (0.93-1.08) APTT 32.0 (25.1-36.5) Seconds pCO2 (35-45) mm/Hg pO2 (80-100) mm/Hg HCO3 (21-28) mmol/L ABG pH (7.35-7.45) ABG Total CO2 (22-28) mmol.L ABG O2 Saturation (95-98) % ABG O2 Content (15-23) ML/dl ABG Base Excess (-2.0-3.0) mmol/L ABG Hemoglobin (11.7-17.4) g/dL ABG Carboxyhemoglobin (0.5-1.5) % POC ABG HHb (Measured) (0-5) % ABG Methemoglobin (0.0-3.0) % ABG O2 Capacity (16-24) mL/dl Hgb O2 Saturation (95.0-98.0) % FiO2 % Sodium (132-148) mmol/L Potassium (3.6-5.0) mmol/L Chloride (98-107) mmol/L Carbon Dioxide (21-33) mmol/L Anion Gap (10-20) BUN (7-21) mg/dL Creatinine (0.7-1.2) mg/dl Est GFR ( Amer) Est GFR (Non-Af Amer) POC Glucose (mg/dL) (65-110) mg/dL Random Glucose (70-110) mg/dL Calcium (8.4-10.5) mg/dL Magnesium (1.7-2.2) mg/dL Total Bilirubin (0.2-1.3) mg/dL Direct Bilirubin (0.0-0.4) mg/dL AST (14-36) U/L ALT (7-56) U/L Alkaline Phosphatase (38-126) U/L Troponin I ng/mL Total Protein (5.8-8.3) g/dL Albumin (3.0-4.8) g/dL Globulin gm/dL Albumin/Globulin Ratio (1.1-1.8) Laboratory Results - last 24 hr 12/25/17 12/25/17 12/26/17 15:24 18:32 00:06 WBC RBC Hgb Hct MCV MCH MCHC RDW Plt Count MPV Gran % Lymph % (Auto) [place] % (Auto) Eos % (Auto) Baso % (Auto) Gran # Lymph # (Auto) [place] # (Auto) Eos # (Auto) Baso # (Auto) PT 13.0 H INR 1.14 H APTT 32.0 pCO2 pO2 HCO3 ABG pH ABG Total CO2 ABG O2 Saturation ABG O2 Content ABG Base Excess ABG Hemoglobin ABG Carboxyhemoglobin POC ABG HHb (Measured) ABG Methemoglobin ABG O2 Capacity Hgb O2 Saturation FiO2 Sodium Potassium Chloride Carbon Dioxide Anion Gap BUN Creatinine Est GFR ( Amer) Est GFR (Non-Af Amer) POC Glucose (mg/dL) 78 74 Random Glucose Calcium Magnesium Total Bilirubin Direct Bilirubin AST ALT Alkaline Phosphatase Troponin I Total Protein Albumin Globulin Albumin/Globulin Ratio 12/26/17 12/26/17 12/26/17 05:40 05:40 06:10 WBC 4.5 RBC 4.02 Hgb 11.8 L Hct 35.6 L MCV 88.6 MCH 29.4 MCHC 33.1 RDW 14.3 Plt Count 186 MPV 11.2 H Gran % 86.4 H Lymph % (Auto) 10.0 L [place] % (Auto) 3.6 Eos % (Auto) 0.0 L Baso % (Auto) 0.0 Gran # 3.89 Lymph # (Auto) 0.5 L [place] # (Auto) 0.2 Eos # (Auto) 0.0 Baso # (Auto) 0.00 PT INR APTT pCO2 41 pO2 114.0 H HCO3 24.8 ABG pH 7.39 ABG Total CO2 26.1 ABG O2 Saturation 99.9 H ABG O2 Content 17.0 ABG Base Excess -0.2 ABG Hemoglobin 12.3 ABG Carboxyhemoglobin 1.7 H POC ABG HHb (Measured) 0.1 ABG Methemoglobin 1.0 ABG O2 Capacity 17.0 Hgb O2 Saturation 97.3 FiO2 35.0 Sodium 143 Potassium 3.8 Chloride 106 Carbon Dioxide 28 Anion Gap 12 BUN 14 Creatinine 0.5 L Est GFR ( Amer) > 60 Est GFR (Non-Af Amer) > 60 POC Glucose (mg/dL) Random Glucose 84 Calcium 8.1 L Magnesium 2.1 Total Bilirubin 0.7 Direct Bilirubin 0.1 AST 29 ALT 57 H Alkaline Phosphatase 51 Troponin I 0.09 D Total Protein 5.6 L Albumin 3.2 Globulin 2.4 Albumin/Globulin Ratio 1.4 12/26/17 10:35 WBC RBC Hgb Hct MCV MCH MCHC RDW Plt Count MPV Gran % Lymph % (Auto) [place] % (Auto) Eos % (Auto) Baso % (Auto) Gran # Lymph # (Auto) [place] # (Auto) Eos # (Auto) Baso # (Auto) PT INR APTT pCO2 40 pO2 136.0 H HCO3 22.6 ABG pH 7.36 ABG Total CO2 23.8 ABG O2 Saturation 100.1 H ABG O2 Content 16.5 ABG Base Excess -2.7 L ABG Hemoglobin 11.8 ABG Carboxyhemoglobin 1.5 POC ABG HHb (Measured) -0.1 L ABG Methemoglobin 0.8 ABG O2 Capacity 16.5 Hgb O2 Saturation 97.8 FiO2 35.0 Sodium Potassium Chloride Carbon Dioxide Anion Gap BUN Creatinine Est GFR ( Amer) Est GFR (Non-Af Amer) POC Glucose (mg/dL) Random Glucose Calcium Magnesium Total Bilirubin Direct Bilirubin AST ALT Alkaline Phosphatase Troponin I Total Protein Albumin Globulin Albumin/Globulin Ratio EKG/Cardiology Studies: Cardiology / EKG Studies 12/26/17 07:00 ELECTROCARDIOGRAM DAILY Comment: Reason For Exam: HYPTENSION/RESP.FAILURE 12/26/17 11:12 ELECTROCARDIOGRAM Stat Comment: Reason For Exam: vt Fingerstick Blood Sugar Results: 74 Critical Care Progress Note - Nutrition Nutrition: Nutrition Category Date Time Status NPO Diet [DIET] Diets 12/23/17 Lunch Ordered Assessment/Plan - Assessment and Plan (Free Text) Assessment: 72 yo AA F in ICU care for Hypercapneic Hypoxic Respiratory Failure likely 2/2 COPD Exacerbation who is intubated but not sedated. Patient failed bipap trial when first brought into ED on 12/16 with initial ABG showing patient to be in severe respiratory acidosis with retention of CO2; patient was also altered as a result of Hypoxemic Hypercapneic Respiratory failure. Patient was doing better and was extubated on 12/18; On 12/23 she was ready for transfer out of ICU when she started desatting and was becoming acutely altered mentally. Most recent ABG today 12/26 shows CO2 of 40, O2 of 136, HCO3 of 22.6, and improving pH of 7.36 with vent settings at CPAP Patient was re-intubated and CT Head after intubation to rule out any neurogenic causes for her desaturation, was negative. Septic work up was ordered with sputum cultures, blood cultures, and urine cultures all negative. CT Chest shows bibasilar atelectasis with possible overlying pneumonia. However , most recent CXR shows improving bilateral venous congestion, and this corresponds to improving clinical exam as well. Patient was also taken to carpenter/labor yesterday which showed no critical lesions. 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 Cardio: - Possible NSTEMI: No other intervention per Dr. Parry - Lovenox for DVT ppx; Daily ASA Pulm: - Hypoxic Hypercapneic Respiratory Failure Likely 2/2 PNA VS COPD VS Mixed picture - Vanc/Cefepime; Doxy, but patient is intubated without NG/OGT - Solumedrol, Xopenex, Atrovent, Budesonide - ENT consult for tracheostomy: For Friday, 12/30 - Pulm consult: Dr. Smart GI: - Protonix for GI ppx - Miralax Dave; Zofran PRN Renal: - Monitor and replete electrolytes as needed Heme: - Lovenox for DVT ppx Endo: - Maintain euglycemia ID: - Covered for PNA with Cefepime and Vanc; Doxy cannot be administered 2/2 intubation status <Ronny Rodriguez - Last Filed: 01/01/18 15:40> CCU Objective - Vital Signs / Intake & Output Vital Signs (Last 4 hours): Vital Signs Temp Pulse Resp BP Pulse Ox 01/01/18 14:53 98.4 F 77 24 111/70 01/01/18 13:29 98.9 F 74 25 H 104/55 L 01/01/18 12:44 98.8 F 73 21 103/65 01/01/18 12:30 74 99/60 L 100 01/01/18 12:28 88/58 L 01/01/18 12:27 75 100 01/01/18 12:26 99 F 77 21 136/69 01/01/18 12:00 81 136/69 78 L Intake and Output (Last 8hrs): Intake & Output 01/01/18 01/01/18 01/01/18 06:59 14:59 22:59 Intake Total 1200 385 Output Total 700 Balance 500 385 Weight 129 lb Intake: IV 1200 100 Left Internal Jugular 1200 Oral 0 Blood Product 275 Apheresis Rbc Cp2d As3 Lr 275 1st Unit [id number] Other 10 Apheresis Rbc Cp2d As3 Lr 10 1st Unit [id number] Output: Urine 700 Urethral ([place]) 700 Other: # Bowel Movements 0 - Medications Active Medications: Active Medications Generic Name Dose Route Start Last Admin Trade Name Freq PRN Reason Stop Dose Admin Acetaminophen 650 mg 12/16/17 19:09 12/17/17 08:30 Tylenol 650 Mg Supp RC 650 mg Q6H PRN Administration TEMP>=99.5F Aspirin 325 mg 12/20/17 10:00 01/01/18 10:15 Aspirin PO Not Given DAILY [facility] Atorvastatin Calcium 10 mg 12/19/17 17:00 12/31/17 17:28 Lipitor PO Not Given DIN DAVE Budesonide 1 mg 12/22/17 20:00 01/01/18 07:47 Pulmicort Respules IH 1 mg [id number] DAVE Administration Enoxaparin Sodium 40 mg 12/17/17 10:00 12/31/17 09:35 Lovenox SC 40 mg DAILY DAVE Administration Protocol Ergocalciferol 1 cap 12/20/17 10:00 12/27/17 10:03 Drisdol 50,000 Intl Units Cap PO Not Given Q7D DAVE Dextrose/Sodium Chloride 1,000 mls @ 100 mls/hr 12/30/17 16:00 01/01/18 10:21 Dextrose 5%/0.9% Ns 1000 Ml IV 100 mls/hr .Q10H DAVE Administration Iron Sucrose 200 mg/ Sodium 110 mls @ 110 mls/hr 01/01/18 14:15 01/01/18 15: 01 Chloride IVPB 01/03/18 10:59 110 mls/hr DAILY DAVE Administration Ipratropium [place] 0.5 mg 12/22/17 14:00 01/01/18 13:43 Atrovent IH 0.5 mg [id number] DAVE Administration Ipratropium [place] 0.5 mg 12/22/17 12:21 Atrovent IH Q2H PRN Shortness of Breath Levalbuterol HCl 0.63 mg 12/16/17 15:37 Xopenex IH Q2 PRN Shortness of Breath Levalbuterol HCl 0.63 mg 12/22/17 08:00 01/01/18 13:43 Xopenex IH 0.63 mg 0200,0800,1400,2000 DAVE Administration Morphine Sulfate 1 mg 12/31/17 10:05 01/01/18 14:05 Morphine IVP 1 mg Q6H PRN Administration Pain, severe (8-10) Ondansetron HCl 4 mg 12/16/17 19:09 Zofran Inj IVP Q4H PRN Nausea/Vomiting Pantoprazole Sodium 40 mg 12/23/17 22:00 01/01/18 10:20 Protonix Inj IVP 40 mg Q12 DAVE Administration Polyethylene Glycol 17 gm 12/19/17 10:30 01/01/18 10:15 Miralax PO Not Given DAILY DAVE - Patient Studies Lab Studies: Lab Studies 01/01/18 01/01/18 01/01/18 Range/Units 11:17 10:48 10:48 WBC (4.5-11.0) 10^3/ul RBC (3.5-6.1) 10^6/uL Hgb (12.0-16.0) g/dL Hct (36.0-48.0) % MCV (80.0-105.0) fl MCH (25.0-35.0) pg MCHC (31.0-37.0) g/dl RDW (11.5-14.5) % Plt Count (120.0-450.0) 10^3/uL MPV (7.0-11.0) fl Gran % (50.0-68.0) % Lymph % (Auto) (22.0-35.0) % [place] % (Auto) (1.0-6.0) % Eos % (Auto) (1.5-5.0) % Baso % (Auto) (0.0-3.0) % Gran # (1.4-6.5) Lymph # (Auto) (1.2-3.4) [place] # (Auto) (0.1-0.6) Eos # (Auto) (0.0-0.7) Baso # (Auto) (0.0-2.0) K/mm3 Retic Count (0.5-1.5) % pCO2 (35-45) mm/Hg pO2 (80-100) mm/Hg HCO3 (21-28) mmol/L ABG pH (7.35-7.45) ABG Total CO2 (22-28) mmol.L ABG O2 Saturation (95-98) % ABG O2 Content (15-23) ML/dl ABG Base Excess (-2.0-3.0) mmol/L ABG Hemoglobin (11.7-17.4) g/dL ABG Carboxyhemoglobin (0.5-1.5) % POC ABG HHb (Measured) (0-5) % ABG Methemoglobin (0.0-3.0) % ABG O2 Capacity (16-24) mL/dl Hgb O2 Saturation (95.0-98.0) % FiO2 % Sodium (132-148) mmol/L Potassium (3.6-5.0) mmol/L Chloride (98-107) mmol/L Carbon Dioxide (21-33) mmol/L Anion Gap (10-20) BUN (7-21) mg/dL Creatinine (0.7-1.2) mg/dl Est GFR ( Amer) Est GFR (Non-Af Amer) POC Glucose (mg/dL) 86 (65-110) mg/dL Random Glucose (70-110) mg/dL Calcium (8.4-10.5) mg/dL Phosphorus (2.5-4.5) mg/dL Magnesium (1.7-2.2) mg/dL Iron 11 L (45-180) ug/dL TIBC 162 L (265-497) ug/dL % Saturation 7 L (20-55) % Total Bilirubin (0.2-1.3) mg/dL Direct Bilirubin (0.0-0.4) mg/dL AST (14-36) U/L ALT (7-56) U/L Alkaline Phosphatase (38-126) U/L Total Protein (5.8-8.3) g/dL Albumin (3.0-4.8) g/dL Globulin gm/dL Albumin/Globulin Ratio (1.1-1.8) Blood Type O POSITIVE Antibody Screen Negative Crossmatch See Detail BBK History Checked Patient has bt 01/01/18 01/01/18 01/01/18 Range/Units 07:00 06:17 06:15 WBC 5.9 D (4.5-11.0) 10^3/ul RBC 3.10 L (3.5-6.1) 10^6/uL Hgb 9.2 L (12.0-16.0) g/dL Hct 28.0 L (36.0-48.0) % MCV 90.3 (80.0-105.0) fl MCH 29.7 (25.0-35.0) pg MCHC 32.9 (31.0-37.0) g/dl RDW 14.6 H (11.5-14.5) % Plt Count 224 (120.0-450.0) 10^3/uL MPV 11.2 H (7.0-11.0) fl Gran % 68.5 H (50.0-68.0) % Lymph % (Auto) 18.9 L (22.0-35.0) % [place] % (Auto) 10.6 H (1.0-6.0) % Eos % (Auto) 2.0 (1.5-5.0) % Baso % (Auto) 0.0 (0.0-3.0) % Gran # 4.01 (1.4-6.5) Lymph # (Auto) 1.1 L (1.2-3.4) [place] # (Auto) 0.6 (0.1-0.6) Eos # (Auto) 0.1 (0.0-0.7) Baso # (Auto) 0.00 (0.0-2.0) K/mm3 Retic Count 0.67 (0.5-1.5) % pCO2 (35-45) mm/Hg pO2 (80-100) mm/Hg HCO3 (21-28) mmol/L ABG pH (7.35-7.45) ABG Total CO2 (22-28) mmol.L ABG O2 Saturation (95-98) % ABG O2 Content (15-23) ML/dl ABG Base Excess (-2.0-3.0) mmol/L ABG Hemoglobin (11.7-17.4) g/dL ABG Carboxyhemoglobin (0.5-1.5) % POC ABG HHb (Measured) (0-5) % ABG Methemoglobin (0.0-3.0) % ABG O2 Capacity (16-24) mL/dl Hgb O2 Saturation (95.0-98.0) % FiO2 % Sodium (132-148) mmol/L Potassium (3.6-5.0) mmol/L Chloride (98-107) mmol/L Carbon Dioxide (21-33) mmol/L Anion Gap (10-20) BUN (7-21) mg/dL Creatinine (0.7-1.2) mg/dl Est GFR ( Amer) Est GFR (Non-Af Amer) POC Glucose (mg/dL) 95 (65-110) mg/dL Random Glucose (70-110) mg/dL Calcium (8.4-10.5) mg/dL Phosphorus (2.5-4.5) mg/dL Magnesium (1.7-2.2) mg/dL Iron (45-180) ug/dL TIBC (265-497) ug/dL % Saturation (20-55) % Total Bilirubin (0.2-1.3) mg/dL Direct Bilirubin (0.0-0.4) mg/dL AST (14-36) U/L ALT (7-56) U/L Alkaline Phosphatase (38-126) U/L Total Protein (5.8-8.3) g/dL Albumin (3.0-4.8) g/dL Globulin gm/dL Albumin/Globulin Ratio (1.1-1.8) Blood Type Antibody Screen Crossmatch BBK History Checked 01/01/18 01/01/18 12/31/17 Range/Units 06:15 05:30 23:54 WBC (4.5-11.0) 10^3/ul RBC (3.5-6.1) 10^6/uL Hgb (12.0-16.0) g/dL Hct (36.0-48.0) % MCV (80.0-105.0) fl MCH (25.0-35.0) pg MCHC (31.0-37.0) g/dl RDW (11.5-14.5) % Plt Count (120.0-450.0) 10^3/uL MPV (7.0-11.0) fl Gran % (50.0-68.0) % Lymph % (Auto) (22.0-35.0) % [place] % (Auto) (1.0-6.0) % Eos % (Auto) (1.5-5.0) % Baso % (Auto) (0.0-3.0) % Gran # (1.4-6.5) Lymph # (Auto) (1.2-3.4) [place] # (Auto) (0.1-0.6) Eos # (Auto) (0.0-0.7) Baso # (Auto) (0.0-2.0) K/mm3 Retic Count (0.5-1.5) % pCO2 43 (35-45) mm/Hg pO2 125.0 H (80-100) mm/Hg HCO3 32.0 H (21-28) mmol/L ABG pH 7.48 H (7.35-7.45) ABG Total CO2 33.3 H (22-28) mmol.L ABG O2 Saturation 100.3 H (95-98) % ABG O2 Content 13.2 L (15-23) ML/dl ABG Base Excess 7.7 H (-2.0-3.0) mmol/L ABG Hemoglobin 9.5 L (11.7-17.4) g/dL ABG Carboxyhemoglobin 1.9 H (0.5-1.5) % POC ABG HHb (Measured) -0.3 L (0-5) % ABG Methemoglobin 1.0 (0.0-3.0) % ABG O2 Capacity 13.2 L (16-24) mL/dl Hgb O2 Saturation 97.3 (95.0-98.0) % FiO2 30.0 % Sodium 139 (132-148) mmol/L Potassium 3.3 L (3.6-5.0) mmol/L Chloride 101 (98-107) mmol/L Carbon Dioxide 33 (21-33) mmol/L Anion Gap 8 L (10-20) BUN 5 L (7-21) mg/dL Creatinine 0.3 L (0.7-1.2) mg/dl Est GFR ( Amer) > 60 Est GFR (Non-Af Amer) > 60 POC Glucose (mg/dL) 97 (65-110) mg/dL Random Glucose 98 (70-110) mg/dL Calcium 7.6 L (8.4-10.5) mg/dL Phosphorus 2.4 L (2.5-4.5) mg/dL Magnesium 1.9 (1.7-2.2) mg/dL Iron (45-180) ug/dL TIBC (265-497) ug/dL % Saturation (20-55) % Total Bilirubin 0.6 (0.2-1.3) mg/dL Direct Bilirubin 0.1 (0.0-0.4) mg/dL AST 38 H D (14-36) U/L ALT 30 (7-56) U/L Alkaline Phosphatase 48 (38-126) U/L Total Protein 5.2 L (5.8-8.3) g/dL Albumin 2.6 L (3.0-4.8) g/dL Globulin 2.6 gm/dL Albumin/Globulin Ratio 1.0 L (1.1-1.8) Blood Type Antibody Screen Crossmatch BBK History Checked 12/31/17 Range/Units 17:06 WBC (4.5-11.0) 10^3/ul RBC (3.5-6.1) 10^6/uL Hgb (12.0-16.0) g/dL Hct (36.0-48.0) % MCV (80.0-105.0) fl MCH (25.0-35.0) pg MCHC (31.0-37.0) g/dl RDW (11.5-14.5) % Plt Count (120.0-450.0) 10^3/uL MPV (7.0-11.0) fl Gran % (50.0-68.0) % Lymph % (Auto) (22.0-35.0) % [place] % (Auto) (1.0-6.0) % Eos % (Auto) (1.5-5.0) % Baso % (Auto) (0.0-3.0) % Gran # (1.4-6.5) Lymph # (Auto) (1.2-3.4) [place] # (Auto) (0.1-0.6) Eos # (Auto) (0.0-0.7) Baso # (Auto) (0.0-2.0) K/mm3 Retic Count (0.5-1.5) % pCO2 (35-45) mm/Hg pO2 (80-100) mm/Hg HCO3 (21-28) mmol/L ABG pH (7.35-7.45) ABG Total CO2 (22-28) mmol.L ABG O2 Saturation (95-98) % ABG O2 Content (15-23) ML/dl ABG Base Excess (-2.0-3.0) mmol/L ABG Hemoglobin (11.7-17.4) g/dL ABG Carboxyhemoglobin (0.5-1.5) % POC ABG HHb (Measured) (0-5) % ABG Methemoglobin (0.0-3.0) % ABG O2 Capacity (16-24) mL/dl Hgb O2 Saturation (95.0-98.0) % FiO2 % Sodium (132-148) mmol/L Potassium (3.6-5.0) mmol/L Chloride (98-107) mmol/L Carbon Dioxide (21-33) mmol/L Anion Gap (10-20) BUN (7-21) mg/dL Creatinine (0.7-1.2) mg/dl Est GFR ( Amer) Est GFR (Non-Af Amer) POC Glucose (mg/dL) 96 (65-110) mg/dL Random Glucose (70-110) mg/dL Calcium (8.4-10.5) mg/dL Phosphorus (2.5-4.5) mg/dL Magnesium (1.7-2.2) mg/dL Iron (45-180) ug/dL TIBC (265-497) ug/dL % Saturation (20-55) % Total Bilirubin (0.2-1.3) mg/dL Direct Bilirubin (0.0-0.4) mg/dL AST (14-36) U/L ALT (7-56) U/L Alkaline Phosphatase (38-126) U/L Total Protein (5.8-8.3) g/dL Albumin (3.0-4.8) g/dL Globulin gm/dL Albumin/Globulin Ratio (1.1-1.8) Blood Type Antibody Screen Crossmatch BBK History Checked Laboratory Results - last 24 hr 12/31/17 12/31/17 01/01/18 17:06 23:54 05:30 WBC RBC Hgb Hct MCV MCH MCHC RDW Plt Count MPV Gran % Lymph % (Auto) [place] % (Auto) Eos % (Auto) Baso % (Auto) Gran # Lymph # (Auto) [place] # (Auto) Eos # (Auto) Baso # (Auto) Retic Count pCO2 43 pO2 125.0 H HCO3 32.0 H ABG pH 7.48 H ABG Total CO2 33.3 H ABG O2 Saturation 100.3 H ABG O2 Content 13.2 L ABG Base Excess 7.7 H ABG Hemoglobin 9.5 L ABG Carboxyhemoglobin 1.9 H POC ABG HHb (Measured) -0.3 L ABG Methemoglobin 1.0 ABG O2 Capacity 13.2 L Hgb O2 Saturation 97.3 FiO2 30.0 Sodium Potassium Chloride Carbon Dioxide Anion Gap BUN Creatinine Est GFR ( Amer) Est GFR (Non-Af Amer) POC Glucose (mg/dL) 96 97 Random Glucose Calcium Phosphorus Magnesium Iron TIBC % Saturation Total Bilirubin Direct Bilirubin AST ALT Alkaline Phosphatase Total Protein Albumin Globulin Albumin/Globulin Ratio Blood Type Antibody Screen Crossmatch BBK History Checked 01/01/18 01/01/18 01/01/18 06:15 06:15 06:17 WBC 5.9 D RBC 3.10 L Hgb 9.2 L Hct 28.0 L MCV 90.3 MCH 29.7 MCHC 32.9 RDW 14.6 H Plt Count 224 MPV 11.2 H Gran % 68.5 H Lymph % (Auto) 18.9 L [place] % (Auto) 10.6 H Eos % (Auto) 2.0 Baso % (Auto) 0.0 Gran # 4.01 Lymph # (Auto) 1.1 L [place] # (Auto) 0.6 Eos # (Auto) 0.1 Baso # (Auto) 0.00 Retic Count pCO2 pO2 HCO3 ABG pH ABG Total CO2 ABG O2 Saturation ABG O2 Content ABG Base Excess ABG Hemoglobin ABG Carboxyhemoglobin POC ABG HHb (Measured) ABG Methemoglobin ABG O2 Capacity Hgb O2 Saturation FiO2 Sodium 139 Potassium 3.3 L Chloride 101 Carbon Dioxide 33 Anion Gap 8 L BUN 5 L Creatinine 0.3 L Est GFR ( Amer) > 60 Est GFR (Non-Af Amer) > 60 POC Glucose (mg/dL) 95 Random Glucose 98 Calcium 7.6 L Phosphorus 2.4 L Magnesium 1.9 Iron TIBC % Saturation Total Bilirubin 0.6 Direct Bilirubin 0.1 AST 38 H D ALT 30 Alkaline Phosphatase 48 Total Protein 5.2 L Albumin 2.6 L Globulin 2.6 Albumin/Globulin Ratio 1.0 L Blood Type Antibody Screen Crossmatch BBK History Checked 01/01/18 01/01/18 01/01/18 07:00 10:48 10:48 WBC RBC Hgb Hct MCV MCH MCHC RDW Plt Count MPV Gran % Lymph % (Auto) [place] % (Auto) Eos % (Auto) Baso % (Auto) Gran # Lymph # (Auto) [place] # (Auto) Eos # (Auto) Baso # (Auto) Retic Count 0.67 pCO2 pO2 HCO3 ABG pH ABG Total CO2 ABG O2 Saturation ABG O2 Content ABG Base Excess ABG Hemoglobin ABG Carboxyhemoglobin POC ABG HHb (Measured) ABG Methemoglobin ABG O2 Capacity Hgb O2 Saturation FiO2 Sodium Potassium Chloride Carbon Dioxide Anion Gap BUN Creatinine Est GFR ( Amer) Est GFR (Non-Af Amer) POC Glucose (mg/dL) Random Glucose Calcium Phosphorus Magnesium Iron 11 L TIBC 162 L % Saturation 7 L Total Bilirubin Direct Bilirubin AST ALT Alkaline Phosphatase Total Protein Albumin Globulin Albumin/Globulin Ratio Blood Type O POSITIVE Antibody Screen Negative Crossmatch See Detail BBK History Checked Patient has bt 01/01/18 11:17 WBC RBC Hgb Hct MCV MCH MCHC RDW Plt Count MPV Gran % Lymph % (Auto) [place] % (Auto) Eos % (Auto) Baso % (Auto) Gran # Lymph # (Auto) [place] # (Auto) Eos # (Auto) Baso # (Auto) Retic Count pCO2 pO2 HCO3 ABG pH ABG Total CO2 ABG O2 Saturation ABG O2 Content ABG Base Excess ABG Hemoglobin ABG Carboxyhemoglobin POC ABG HHb (Measured) ABG Methemoglobin ABG O2 Capacity Hgb O2 Saturation FiO2 Sodium Potassium Chloride Carbon Dioxide Anion Gap BUN Creatinine Est GFR ( Amer) Est GFR (Non-Af Amer) POC Glucose (mg/dL) 86 Random Glucose Calcium Phosphorus Magnesium Iron TIBC % Saturation Total Bilirubin Direct Bilirubin AST ALT Alkaline Phosphatase Total Protein Albumin Globulin Albumin/Globulin Ratio Blood Type Antibody Screen Crossmatch BBK History Checked Critical Care Progress Note - Nutrition Nutrition: Nutrition Category Date Time Status NPO Diet [DIET] Diets 12/23/17 Lunch Ordered Attending/Attestation - Attestation I have personally seen and examined this patient.: Yes I have fully participated in the care of the patient.: Yes I have reviewed all pertinent clinical information: Yes Notes (Text): 01/01/18 15:[address] Rodriguez note
[2017-12-26 13:42] LABS: ARTERIAL BLOOD GAS HCO3 22.2 mmol/L (21-28); ARTERIAL BLOOD GAS HEMOGLOBIN 12.4 g/dL (11.7-17.4); ARTERIAL BLOOD GAS O2 CAPACITY 17.1 mL/dl (16-24); ARTERIAL BLOOD GAS O2 CONTENT 17.1 ML/dl (15-23); ARTERIAL BLOOD GAS O2 SAT 99.9 % (95-98); ARTERIAL BLOOD GAS PCO2 43 mm/Hg (35-45); ARTERIAL BLOOD GAS PH 7.32 (7.35-7.45); ARTERIAL BLOOD GAS TCO2 23.5 mmol.L (22-28)
--- NOTE | 2017-12-26 14:02 | CARD ---
APPROVED REPORT EKG Measurement Heart [id number] <Conclusion> Normal sinus rhythm Possible Left atrial enlargement Left ventricular hypertrophy with repolarization abnormality
--- NOTE | 2017-12-26 14:13 | PN ---
DATE: 12/26/2017 CARDIOLOGY FOLLOWUP SUBJECTIVE: The patient is awake, remains intubated. PHYSICAL EXAMINATION VITAL SIGNS: Blood pressure is 99/71, the heart rate is in the 70s. NECK: Negative JVD. LUNGS: Decreased breath sounds. HEART: Reveals S1 and S2. EXTREMITIES: Without edema. LABORATORY DATA: Laboratories were reviewed. IMPRESSION: 1. Respiratory failure. 2. Pneumonia. 3. Anemia. 4. . 5. Status post catheterization. PLAN: Given these findings, there is no evidence for cardiac contribution to her respiratory issues. The future plan is for either tracheostomy or aggressive efforts at weaning off the respirator. Marcelo Parry MD
--- NOTE | 2017-12-26 14:15 | PN ---
DATE: 12/26/2017 SUBJECTIVE: The patient is seen and examined at bedside. She is intubated; however, on pressure support, very comfortable, communicative (nonverbal). Yesterday, she spent almost the entire daytime in the chair. Her ABG on 04/24 pressure support is 7.36/40/136 on 35% FIO2. Pressure support weaned down to 11/22. PHYSICAL EXAMINATION: VITAL SIGNS: Heart rate 94, blood pressure 121/75, oxygen saturation 92%, end-tidal CO2 on the monitor 42%. ENT: Head and neck atraumatic. LUNGS: Clear to auscultation bilaterally. HEART: Regular rate and rhythm. S1 and S2 normal. ABDOMEN: Soft, nontender and nondistended. MUSCULOSKELETAL: No C/C/E. NEUROLOGIC: The patient moves all extremities spontaneously. SKIN: Moist. PSYCH: The patient is alert and oriented x3. LABORATORY DATA: WBC 4.5, hemoglobin 11.8, platelet count 186. Sodium 143, potassium 3.8, chloride 106, carbon dioxide 28, BUN 14, creatinine 0.5, glucose 84. Troponin 0.09. MEDICATIONS: Tylenol p.r.n., aspirin, Lipitor, Pulmicort, doxycycline, Lovenox, hydralazine p.r.n., hydrocortisone 50 mg IV every 8 (we will start tapering down to q12), Atrovent every 6 hours, Xopenex every 6 hours, cefepime, Zofran p.r.n., Protonix, vancomycin. ASSESSMENT AND PLAN: This is a 72-year-old lady, recovering from hypercapnic respiratory failure. At present time, we are tapering down her pressure support ventilation. ABG will be followed. She is pending tracheotomy on Friday. We will continue with steroid taper, antibiotics and weaning vent support. We will continue with deep venous thrombosis, gastrointestinal prophylaxis. Head of bed elevated at >35 degrees, early mobilization, out of bed to chair, chest physical therapy, bronchodilators. Addendum: ph started to trend down to 7.32 on 11/22 PSV-->increased IPAP to 10. ccm time 40 min Ronny Rodriguez MD MTDBrandy
--- NOTE | 2017-12-26 14:38 | CARD ---
APPROVED REPORT EKG Measurement Heart [id number] <Conclusion> Sinus rhythm with premature atrial complexes IVCD Left ventricular hypertrophy with repolarization abnormality
--- NOTE | 2017-12-26 14:41 | CP.PCM.PN ---
Subjective - Date & Time of Evaluation Date of Evaluation: 12/26/17 Time of Evaluation: 09:55 - Subjective Subjective: Patient is still on the ventilator, but awake and alert, no fevers. Objective - Vital Signs/Intake and Output Vital Signs (last 24 hours): Temp Pulse Resp BP Pulse Ox 98.1 F 73 33 H 99/71 L 100 12/26/17 04:00 12/26/17 06:00 12/25/17 20:30 12/26/17 05:46 12/26/17 06:00 Intake and Output: 12/26/17 12/26/17 06:59 18:59 Intake Total 1650 Output Total 1700 Balance -50 - Medications Medications: Current Medications Acetaminophen (Tylenol 650 Mg Supp) 650 mg RC Q6H PRN PRN Reason: TEMP>=99.5F Last Admin: 12/17/17 08:30 Dose: 650 mg Aspirin (Aspirin) 325 mg PO DAILY [facility] Last Admin: 12/25/17 12:06 Dose: 325 mg Atorvastatin Calcium (Lipitor) 10 mg PO DIN [facility] Last Admin: 12/25/17 16:09 Dose: 10 mg Budesonide (Pulmicort Respules) 1 mg IH [id number] [facility] Last Admin: 12/26/17 07:38 Dose: 1 mg Doxycycline Hyclate (Doryx) 100 mg PO Q12 [facility] Last Admin: 12/25/17 22:01 Dose: 100 mg Enoxaparin Sodium (Lovenox) 40 mg SC DAILY [facility] PRN Reason: Protocol Last Admin: 12/25/17 12:07 Dose: 40 mg Ergocalciferol (Drisdol 50,000 Intl Units Cap) 1 cap PO Q7D [facility] Last Admin: 12/20/17 10:07 Dose: 1 cap Hydralazine HCl (Apresoline) 10 mg IVP Q6 PRN PRN Reason: Systolic Blood Pressure Last Admin: 12/23/17 14:30 Dose: 10 mg Hydrocortisone Sodium Succinate (Solu-Cortef) 50 mg IVP Q8H [facility] Last Admin: 12/26/17 04:20 Dose: 50 mg Midazolam 100 mg/100ml in NS (Midazolam 100 Mg/100ml In Ns) 100 mg in 100 mls @ 1 mls/hr IV .Q24H PRN; Protocol; 1 MG/HR PRN Reason: Sedation Last Titration: 12/24/17 11:45 Dose: 0 mg/hr, 0 mls/hr NOREPINEPHRINE BIT/0.9 % NACL (Levophed 4 Mg/ 250 Ml Ns Premixed) 4 mg in 250 mls @ 15 mls/hr IV .[id number] PRN; Protocol; 4 MCG/MIN PRN Reason: TITRATE PER MD ORDER Last Titration: 12/24/17 07:38 Dose: 0 mcg/min, 0 mls/hr Vasopressin 20 units/ Dextrose 101 mls @ 9.09 mls/hr IV .Q11H7M KRISTINE; 0.03 U/MIN PRN Reason: Protocol Last Admin: 12/24/17 16:31 Dose: 9.09 mls/hr Vancomycin HCl (Vancomycin 1gm) 1 gm in 250 mls @ 167 mls/hr IVPB Q12 [facility] PRN Reason: Protocol Last Admin: 12/25/17 22:05 Dose: 167 mls/hr Cefepime HCl (Maxipime 2gm) 2 gm in 100 mls @ 100 mls/hr IVPB Q8 [facility] PRN Reason: Protocol Stop: 12/29/17 09:16 Last Admin: 12/26/17 05:49 Dose: 100 mls/hr Ipratropium [place] (Atrovent) 0.5 mg IH [id number] [facility] Last Admin: 12/26/17 07:38 Dose: 0.5 mg Ipratropium [place] (Atrovent) 0.5 mg IH Q2H PRN PRN Reason: Shortness of Breath Levalbuterol HCl (Xopenex) 0.63 mg IH Q2 PRN PRN Reason: Shortness of Breath Levalbuterol HCl (Xopenex) 0.63 mg IH 0200,0800,1400,2000 [facility] Last Admin: 12/26/17 07:38 Dose: 0.63 mg Ondansetron HCl (Zofran Inj) 4 mg IVP Q4H PRN PRN Reason: Nausea/Vomiting Pantoprazole Sodium (Protonix Inj) 40 mg IVP Q12 [facility] Last Admin: 12/25/17 22:02 Dose: 40 mg Polyethylene Glycol (Miralax) 17 gm PO DAILY [facility] Last Admin: 12/25/17 12:08 Dose: 17 gm - Labs Labs: 12/26/17 05:40 12/26/17 05:40 PT 13.0 SECONDS (9.4-12.5) H 12/25/17 15:24 INR 1.14 (0.93-1.08) H 12/25/17 15:24 APTT 32.0 Seconds (25.1-36.5) 12/25/17 15:24 - Constitutional Appears: Chronically Ill, Other (intubated) - Head Exam Head Exam: NORMAL INSPECTION - ENT Exam Additional comments: ET tube in place - Respiratory Exam Respiratory Exam: Decreased Breath Sounds - Cardiovascular Exam Cardiovascular Exam: +S1, +S2 - GI/Abdominal Exam GI & Abdominal Exam: Soft. absent: Tenderness Assessment and Plan - Assessment and Plan (Free Text) Plan: Assessment Severe sepsis with ventilator-dependent respiratory failure due to left sided hospital-acquired pneumonia in this patient with acute COPD exacerbation COPD diastolic chronic CHF S/P hysterectomy obesity with BMI 31 Plan continue Vancomycin, Cefepime and Doxycycline day 4 to complete 4-7 days and will follow up blood and sputum cx; reviewed CT chest which shows left base patchy infiltrates; also reviewed Pulmonary evaluation and recommendations will continue to follow clinically
[2017-12-26] MEDS ORDERED: Propofol 10 mg/ml Inj (20 ML) IVP ONE (21:00)
[2017-12-26] MEDS ORDERED: Midazolam 50 mg/10 ml Inj IVP ONE (21:01)
[2017-12-26] MEDS: Propofol 10 mg/ml 1,000 MG/100 ML VIAL IV PRN (21:30)
[2017-12-26 23:16] LABS: ARTERIAL BLOOD GAS HCO3 24.8 mmol/L (21-28); ARTERIAL BLOOD GAS HEMOGLOBIN 11.6 g/dL (11.7-17.4); ARTERIAL BLOOD GAS O2 CAPACITY 16.1 mL/dl (16-24); ARTERIAL BLOOD GAS O2 CONTENT 16.1 ML/dl (15-23); ARTERIAL BLOOD GAS O2 SAT 100.1 % (95-98); ARTERIAL BLOOD GAS PCO2 45 mm/Hg (35-45); ARTERIAL BLOOD GAS PH 7.35 (7.35-7.45); ARTERIAL BLOOD GAS TCO2 26.2 mmol.L (22-28)
--- NOTE | 2017-12-27 01:21 | CP.PCM.PN ---
Subjective - Date & Time of Evaluation Date of Evaluation: 12/26/17 Time of Evaluation: 23:00 - Subjective Subjective: PGY-[address] Clinton At 8pm: Pt was OOB to chair with ET tube attached. Pt's ET tube slid out. Pt was moved back from the chair to bed for ET tube adjustment. Respiratory therapy repositioned the tube to 21cm by lip line (as per previous record). CXR confirmed placement At 9pm: Pt was able to make voices with the ET tube in place. Pt gestured that she felt discomfort at mid sternum. Dr Clinton re-intubated pt. There was a sudden swelling at R cheek/buccal membrane and b/l mandibular soft tissue. ETT and OG placement confirmed by x-ray Objective - Vital Signs/Intake and Output Vital Signs (last 24 hours): Temp Pulse Resp BP Pulse Ox 98.2 F 88 33 H 105/65 100 12/26/17 20:00 12/26/17 23:00 12/26/17 20:00 12/26/17 23:00 12/26/17 23:00 Intake and Output: 12/26/17 12/27/17 18:59 06:59 Intake Total 268 98 Output Total 625 Balance -357 98 - Medications Medications: Current Medications Acetaminophen (Tylenol 650 Mg Supp) 650 mg RC Q6H PRN PRN Reason: TEMP>=99.5F Last Admin: 12/17/17 08:30 Dose: 650 mg Amiodarone HCl (Cordarone) 400 mg PO BID [facility] Last Admin: 12/26/17 19:38 Dose: 400 mg Aspirin (Aspirin) 325 mg PO DAILY [facility] Last Admin: 12/26/17 12:43 Dose: 325 mg Atorvastatin Calcium (Lipitor) 10 mg PO DIN [facility] Last Admin: 12/26/17 18:05 Dose: 10 mg Budesonide (Pulmicort Respules) 1 mg IH [id number] [facility] Last Admin: 12/26/17 07:38 Dose: 1 mg Doxycycline Hyclate (Doryx) 100 mg PO Q12 [facility] Last Admin: 12/26/17 22:26 Dose: 100 mg Enoxaparin Sodium (Lovenox) 40 mg SC DAILY [facility] PRN Reason: Protocol Last Admin: 12/26/17 11:01 Dose: 40 mg Ergocalciferol (Drisdol 50,000 Intl Units Cap) 1 cap PO Q7D [facility] Last Admin: 12/20/17 10:07 Dose: 1 cap Hydralazine HCl (Apresoline) 10 mg IVP Q6 PRN PRN Reason: Systolic Blood Pressure Last Admin: 12/23/17 14:30 Dose: 10 mg Hydrocortisone Sodium Succinate (Solu-Cortef) 50 mg IVP Q12H [facility] NOREPINEPHRINE BIT/0.9 % NACL (Levophed 4 Mg/ 250 Ml Ns Premixed) 4 mg in 250 mls @ 15 mls/hr IV .[id number] PRN; Protocol; 4 MCG/MIN PRN Reason: TITRATE PER MD ORDER Last Titration: 12/24/17 07:38 Dose: 0 mcg/min, 0 mls/hr Vasopressin 20 units/ Dextrose 101 mls @ 9.09 mls/hr IV .Q11H7M KRISTINE; 0.03 U/MIN PRN Reason: Protocol Last Admin: 12/24/17 16:31 Dose: 9.09 mls/hr Vancomycin HCl (Vancomycin 1gm) 1 gm in 250 mls @ 167 mls/hr IVPB Q12 [facility] PRN Reason: Protocol Last Admin: 12/26/17 22:27 Dose: 167 mls/hr Cefepime HCl (Maxipime 2gm) 2 gm in 100 mls @ 100 mls/hr IVPB Q8 K[facility]ST[facility] PRN Reason: Protocol Stop: 12/29/17 09:16 Last Admin: 12/26/17 22:26 Dose: 100 mls/hr Propofol (Diprivan) 1,000 mg in 100 mls @ 2.252 mls/hr IV .Q24H PRN; Protocol; 5 MCG/KG/MIN PRN Reason: TITRATE PER MD ORDER Last Titration: 12/26/17 22:00 Dose: 22.2 mcg/kg/min, 10 mls/hr Ipratropium [place] (Atrovent) 0.5 mg IH [id number] [facility] Last Admin: 12/26/17 19:15 Dose: Not Given Ipratropium [place] (Atrovent) 0.5 mg IH Q2H PRN PRN Reason: Shortness of Breath Levalbuterol HCl (Xopenex) 0.63 mg IH Q2 PRN PRN Reason: Shortness of Breath Levalbuterol HCl (Xopenex) 0.63 mg IH 0200,0800,1400,2000 [facility] Last Admin: 12/26/17 13:44 Dose: 0.63 mg Ondansetron HCl (Zofran Inj) 4 mg IVP Q4H PRN PRN Reason: Nausea/Vomiting Pantoprazole Sodium (Protonix Inj) 40 mg IVP Q12 [facility] Last Admin: 12/26/17 22:27 Dose: 40 mg Polyethylene Glycol (Miralax) 17 gm PO DAILY [facility] Last Admin: 12/26/17 10:57 Dose: 17 gm - Labs Labs: 12/26/17 05:40 12/26/17 05:40 PT 13.0 SECONDS (9.4-12.5) H 12/25/17 15:24 INR 1.14 (0.93-1.08) H 12/25/17 15:24 APTT 32.0 Seconds (25.1-36.5) 12/25/17 15:24
[2017-12-27] MEDS: Ipratropium 0.02% Inhal Soln (0.5 mg/2.5 ml) UD IH SCH ×4 (02:28→20:09)
[2017-12-27] MEDS: Levalbuterol 0.63 MG/3 ML Inhal Soln UD IH SCH ×4 (02:36→20:09)
[2017-12-27 05:27] LABS: ARTERIAL BLOOD GAS HCO3 24.8 mmol/L (21-28); ARTERIAL BLOOD GAS HEMOGLOBIN 11.3 g/dL (11.7-17.4); ARTERIAL BLOOD GAS O2 CAPACITY 15.6 mL/dl (16-24); ARTERIAL BLOOD GAS O2 CONTENT 15.6 ML/dl (15-23); ARTERIAL BLOOD GAS O2 SAT 99.9 % (95-98); ARTERIAL BLOOD GAS PCO2 45 mm/Hg (35-45); ARTERIAL BLOOD GAS PH 7.35 (7.35-7.45); ARTERIAL BLOOD GAS TCO2 26.2 mmol.L (22-28)
[2017-12-27] MEDS: Cefepime IV 2 gm in NS 2 GM/100 ML BAG IVPB SCH ×3 (05:33→21:50)
[2017-12-27 06:42] LABS: ALB/GLOB RATIO 1.2 (1.1-1.8); ALT/SGPT 54 U/L (7-56); AST/SGOT 24 U/L (14-36); BILIRUBIN,DIRECT 0.3 mg/dL (0.0-0.4); BLOOD UREA NITROGEN 20 mg/dL (7-21); GFR AFRICAN-AMERICAN > 60; GFR NON-AFRICAN AMERICAN > 60
[2017-12-27] MEDS: Budesonide 0.5 mg/2 ml Inhal Susp UD IH SCH ×2 (07:02→20:09)
[2017-12-27 07:36] LABS: EOS % 0.1 % (1.5-5.0); GRAN # 9.99 (1.4-6.5); GRAN % 91.6 % (50.0-68.0); HEMOGLOBIN 11.7 g/dL (12.0-16.0); LYMPH # 0.6 (1.2-3.4); LYMPH % 5.6 % (22.0-35.0); MEAN CELL VOLUME 89.8 fl (80.0-105.0); MEAN CORPUSCULAR HEMOGLOBIN 29.1 pg (25.0-35.0); MEAN CORPUSCULAR HGB CONC 32.4 g/dl (31.0-37.0); MEAN PLATELET VOLUME 11.9 fl (7.0-11.0); MONO # 0.3 (0.1-0.6); MONO % 2.7 % (1.0-6.0); PLATELET COUNT 175 10^3/uL (120.0-450.0); RBC 4.02 10^6/uL (3.5-6.1); RED CELL DISTRIBUTION WIDTH 14.6 % (11.5-14.5); WHITE BLOOD COUNT 10.9 10^3/ul (4.5-11.0)
[2017-12-27] MEDS: Propofol 10 mg/ml 1,000 MG/100 ML VIAL IV PRN ×2 (08:17→18:12)
--- NOTE | 2017-12-27 08:57 | RAD ---
HISTORY: ET tube sliding out COMPARISON: Earlier same day FINDINGS: LUNGS: The endotracheal tube has been advanced and is in satisfactory position. PLEURA: Small left effusion CARDIOVASCULAR: Normal. OSSEOUS STRUCTURES: No significant abnormalities. VISUALIZED UPPER ABDOMEN: Nasogastric tube in satisfactory position OTHER FINDINGS: None. IMPRESSION: Endotracheal tube in satisfactory position
--- NOTE | 2017-12-27 08:59 | RAD ---
HISTORY: re-intubated because pt has a voice COMPARISON: Earlier same day FINDINGS: LUNGS: The endotracheal tube is in satisfactory position. PLEURA: No significant pleural effusion identified, no pneumothorax apparent. CARDIOVASCULAR: Normal. OSSEOUS STRUCTURES: No significant abnormalities. VISUALIZED UPPER ABDOMEN: The nasogastric tube has been partially withdrawn. The tip of the tube is in the stomach. The side hole is at the level of the diaphragm. The tube could be advanced for more optimal positioning OTHER FINDINGS: None. IMPRESSION: Endotracheal tube in satisfactory position.
--- NOTE | 2017-12-27 09:19 | RAD ---
HISTORY: f/u COMPARISON: 12/26/2017 FINDINGS: LUNGS: There is an infiltrate at the left lung base that obscures the diaphragm. Central lines and tubes are unchanged PLEURA: No significant pleural effusion identified, no pneumothorax apparent. CARDIOVASCULAR: Normal. OSSEOUS STRUCTURES: No significant abnormalities. VISUALIZED UPPER ABDOMEN: Normal. OTHER FINDINGS: None. IMPRESSION: There is an infiltrate at the left lung base that obscures the diaphragm. Central lines and tubes are unchanged
[2017-12-27 09:31] LABS: NEUTROPHIL 92 % (50.0-70.0)
[2017-12-27 09:32] LABS: LYMPHOCYTE 5 % (22.0-35.0); MONOCYTE 2 % (1.0-6.0)
[2017-12-27] MEDS: POLYETHYLENE GLYCOL 3350 17 GM/Dose PACKET PO SCH (09:57)
[2017-12-27] MEDS: Vancomycin 1gm in NS 250ml 1 GM/250 ML BAG IVPB SCH ×2 (09:57→21:18)
[2017-12-27] MEDS: Enoxaparin 40 mg Syringe SC SCH (09:58)
[2017-12-27] MEDS: Ergocalciferol 50,000 Intl Units Cap PO SCH (10:03)
--- NOTE | 2017-12-27 10:43 | CP.CCUPN ---
<Venancio Olivera - Last Filed: 12/27/17 10:35> CCU Subjective - Physician Review Subjective (Free Text): 12/27/17 08:00A Patient seen and examined at bedside. Yesterday, patient had to be re- intubated because the tube slid out when she was out of bed in chair. Patient at that time had some jaw swelling, which has since resolved. CCU Objective - Vital Signs / Intake & Output Vital Signs (Last 4 hours): Vital Signs Temp Pulse Resp BP Pulse Ox 12/27/17 10:00 78 97/61 L 100 12/27/17 09:58 76 99/60 L 12/27/17 09:00 84 99/60 L 100 12/27/17 08:04 94/59 L 12/27/17 08:03 87 13 99 12/27/17 08:00 99.2 F 78/47 L 12/27/17 07:59 85 15 100 12/27/17 07:04 16 100 12/27/17 07:00 83 105/65 100 Intake and Output (Last 8hrs): Intake & Output 12/26/17 12/27/17 12/27/17 22:59 06:59 14:59 Intake Total 270 1103 Output Total 625 200 Balance -355 903 Intake: IV 20 683 Left Internal Jugular 335 levophed 18 vancomycin 250 Oral 250 Tube Feeding 360 Other 60 Output: Urine 425 200 Urethral (Oconnell) 425 200 Stool 200 Emesis 0 Other: # Bowel Movements 1 - Physical Exam Head: Positive for: Atraumatic, Normocephalic Pupils: Positive for: PERRL. Negative for: Non-Reactive, Pinpoint Extroacular Muscles: Positive for: EOMI. Negative for: Gaze Palsy, Entrapment Conjunctiva: Positive for: Normal. Negative for: Injected, Icteric Mouth: Positive for: Moist Mucous Membranes, Normal Lips, Normal Tounge. Negative for: Drooling Nose (External): Positive for: Atraumatic. Negative for: Abrasion, Laceration Nose (Internal): Positive for: Normal Inspection, No Active Bleeding. Negative for: Epistaxis Neck: Positive for: Normal Range of Motion. Negative for: Meningeal Signs, MIDLINE TENDERNESS, Paraspinal Tenderness, JVD Respiratory/Chest: Positive for: Clear to Auscultation, Good Air Exchange, Decreased Breath Sounds (mildly decreased breath sounds all bauer, again improved over prior exams). Negative for: Respiratory Distress, Accessory Muscle Use, Wheezes (no further wheezing appreciated on exam today), Rales, Rhonchi Cardiovascular: Positive for: Regular Rate and Rhythm, Normal S1, S2. Negative for: Murmurs, Irregular Rhythm, Tachycardic, Bradycardic Abdomen: Negative for: Tenderness, Distention, Peritoneal Signs Back: Positive for: Normal Inspection. Negative for: CVA Tenderness, Midline Tenderness, Paraspinal Tenderness Upper Extremity: Positive for: Normal Inspection, Normal ROM, NORMAL PULSES. Negative for: Cyanosis, Edema, Tenderness, Swelling, Erythema, Deformity Lower Extremity: Positive for: Normal Inspection, NORMAL PULSES, Normal ROM. Negative for: Edema, CALF TENDERNESS, Cyanosis, Tenderness, Swelling, Erythema, Deformity Neurological: Positive for: GCS=15, Speech Normal, Motor Func Grossly Intact, Normal Sensory Function, Other (following all commands appropriately, no appreciable lethargy/somnolence) Skin: Positive for: Warm, Dry, Normal Color. Negative for: Rashes Psychiatric: Positive for: Alert, Oriented x 3 (x4 (self, location, year, president)), Normal Insight, Normal Concentration, Normal Affect, Normal Mood - Medications Active Medications: Active Medications Generic Name Dose Route Start Last Admin Trade Name Freq PRN Reason Stop Dose Admin Acetaminophen 650 mg 12/16/17 19:09 12/17/17 08:30 Tylenol 650 Mg Supp RC 650 mg Q6H PRN Administration TEMP>=99.5F Amiodarone HCl 400 mg 12/26/17 18:00 12/27/17 09:58 Cordarone PO Not Given BID DAVE Aspirin 325 mg 12/20/17 10:00 12/27/17 09:58 Aspirin PO 325 mg DAILY DAVE Administration Atorvastatin Calcium 10 mg 12/19/17 17:00 12/26/17 18:05 Lipitor PO 10 mg DIN DAVE Administration Budesonide 1 mg 12/22/17 20:00 12/27/17 07:02 Pulmicort Respules IH 0.5 mg [id number] DAVE Administration Doxycycline Hyclate 100 mg 12/19/17 22:00 12/27/17 09:58 Doryx PO 100 mg Q12 DAVE Administration Enoxaparin Sodium 40 mg 12/17/17 10:00 12/27/17 09:58 Lovenox SC 40 mg DAILY DAVE Administration Protocol Ergocalciferol 1 cap 12/20/17 10:00 12/27/17 10:03 Drisdol 50,000 Intl Units Cap PO Not Given Q7D DAVE Hydralazine HCl 10 mg 12/23/17 14:29 12/23/17 14:30 Apresoline IVP 10 mg Q6 PRN Administration Systolic Blood Pressure Hydrocortisone Sodium Succinate 25 mg 12/27/17 09:28 12/27/17 09:57 Solu-Cortef IVP 25 mg Q12H DAVE Administration Vancomycin HCl 1 gm in 250 mls @ 167 mls/hr 12/24/17 10:00 12/27/17 09:57 Vancomycin 1gm IVPB 167 mls/hr Q12 DAVE Administration Protocol Cefepime HCl 2 gm in 100 mls @ 100 mls/hr 12/24/17 09:15 12/27/17 05:33 Maxipime 2gm IVPB 12/29/17 09:16 100 mls/hr Q8 DAVE Administration Protocol Propofol 1,000 mg in 100 mls @ 2.252 mls/hr 12/26/17 22:05 12/27/17 08:17 Diprivan IV 33.3 mcg/kg/min .Q24H PRN 14.999 mls/hr TITRATE PER MD ORDER Administration Protocol 5 MCG/KG/MIN Ipratropium Normanna 0.5 mg 12/22/17 14:00 12/27/17 07:03 Atrovent IH 0.5 mg [id number] DAVE Administration Ipratropium Normanna 0.5 mg 12/22/17 12:21 Atrovent IH Q2H PRN Shortness of Breath Levalbuterol HCl 0.63 mg 12/16/17 15:37 Xopenex IH Q2 PRN Shortness of Breath Levalbuterol HCl 0.63 mg 12/22/17 08:00 12/27/17 07:03 Xopenex IH 0.63 mg 0200,0800,1400,2000 DAVE Administration Ondansetron HCl 4 mg 12/16/17 19:09 Zofran Inj IVP Q4H PRN Nausea/Vomiting Pantoprazole Sodium 40 mg 12/23/17 22:00 12/27/17 09:57 Protonix Inj IVP 40 mg Q12 DAVE Administration Polyethylene Glycol 17 gm 12/19/17 10:30 12/27/17 09:57 Miralax PO 17 gm DAILY DAVE Administration - Patient Studies Lab Studies: Microbiology Studies 12/23/17 19:15 Blood Culture - Preliminary Blood NO GROWTH AFTER 3 DAYS 12/23/17 18:15 Blood Culture - Preliminary Blood NO GROWTH AFTER 3 DAYS Lab Studies 12/27/17 12/27/17 12/27/17 Range/Units 05:45 05:45 05:22 WBC 10.9 D (4.5-11.0) 10^3/ul RBC 4.02 (3.5-6.1) 10^6/uL Hgb 11.7 L (12.0-16.0) g/dL Hct 36.1 (36.0-48.0) % MCV 89.8 (80.0-105.0) fl MCH 29.1 (25.0-35.0) pg MCHC 32.4 (31.0-37.0) g/dl RDW 14.6 H (11.5-14.5) % Plt Count 175 (120.0-450.0) 10^3/uL MPV 11.9 H (7.0-11.0) fl Gran % 91.6 H (50.0-68.0) % Lymph % (Auto) 5.6 L (22.0-35.0) % Bonner % (Auto) 2.7 (1.0-6.0) % Eos % (Auto) 0.1 L (1.5-5.0) % Baso % (Auto) 0.0 (0.0-3.0) % Gran # 9.99 H (1.4-6.5) Lymph # (Auto) 0.6 L (1.2-3.4) Bonner # (Auto) 0.3 (0.1-0.6) Eos # (Auto) 0.0 (0.0-0.7) Baso # (Auto) 0.00 (0.0-2.0) K/mm3 Neutrophils % (Manual) 92 H (50.0-70.0) % Lymphocytes % (Manual) 5 L (22.0-35.0) % Monocytes % (Manual) 2 (1.0-6.0) % pCO2 (35-45) mm/Hg pO2 (80-100) mm/Hg HCO3 (21-28) mmol/L ABG pH (7.35-7.45) ABG Total CO2 (22-28) mmol.L ABG O2 Saturation (95-98) % ABG O2 Content (15-23) ML/dl ABG Base Excess (-2.0-3.0) mmol/L ABG Hemoglobin (11.7-17.4) g/dL ABG Carboxyhemoglobin (0.5-1.5) % POC ABG HHb (Measured) (0-5) % ABG Methemoglobin (0.0-3.0) % ABG O2 Capacity (16-24) mL/dl Hgb O2 Saturation (95.0-98.0) % FiO2 % Sodium 142 (132-148) mmol/L Potassium 3.7 (3.6-5.0) mmol/L Chloride 110 H (98-107) mmol/L Carbon Dioxide 27 (21-33) mmol/L Anion Gap 9 L (10-20) BUN 20 (7-21) mg/dL Creatinine 0.5 L (0.7-1.2) mg/dl Est GFR ( Amer) > 60 Est GFR (Non-Af Amer) > 60 POC Glucose (mg/dL) 159 H (65-110) mg/dL Random Glucose 192 H (70-110) mg/dL Calcium 8.0 L (8.4-10.5) mg/dL Magnesium 2.0 (1.7-2.2) mg/dL Total Bilirubin 0.5 (0.2-1.3) mg/dL Direct Bilirubin 0.3 (0.0-0.4) mg/dL AST 24 (14-36) U/L ALT 54 (7-56) U/L Alkaline Phosphatase 58 (38-126) U/L Total Protein 5.4 L (5.8-8.3) g/dL Albumin 3.0 (3.0-4.8) g/dL Globulin 2.5 gm/dL Albumin/Globulin Ratio 1.2 (1.1-1.8) 12/27/17 12/27/17 12/26/17 Range/Units 05:00 00:02 23:12 WBC (4.5-11.0) 10^3/ul RBC (3.5-6.1) 10^6/uL Hgb (12.0-16.0) g/dL Hct (36.0-48.0) % MCV (80.0-105.0) fl MCH (25.0-35.0) pg MCHC (31.0-37.0) g/dl RDW (11.5-14.5) % Plt Count (120.0-450.0) 10^3/uL MPV (7.0-11.0) fl Gran % (50.0-68.0) % Lymph % (Auto) (22.0-35.0) % Bonner % (Auto) (1.0-6.0) % Eos % (Auto) (1.5-5.0) % Baso % (Auto) (0.0-3.0) % Gran # (1.4-6.5) Lymph # (Auto) (1.2-3.4) Bonner # (Auto) (0.1-0.6) Eos # (Auto) (0.0-0.7) Baso # (Auto) (0.0-2.0) K/mm3 Neutrophils % (Manual) (50.0-70.0) % Lymphocytes % (Manual) (22.0-35.0) % Monocytes % (Manual) (1.0-6.0) % pCO2 45 45 (35-45) mm/Hg pO2 130.0 H 131.0 H (80-100) mm/Hg HCO3 24.8 24.8 (21-28) mmol/L ABG pH 7.35 7.35 (7.35-7.45) ABG Total CO2 26.2 26.2 (22-28) mmol.L ABG O2 Saturation 99.9 H 100.1 H (95-98) % ABG O2 Content 15.6 16.1 (15-23) ML/dl ABG Base Excess -1.0 -1.0 (-2.0-3.0) mmol/L ABG Hemoglobin 11.3 L 11.6 L (11.7-17.4) g/dL ABG Carboxyhemoglobin 1.6 H 1.8 H (0.5-1.5) % POC ABG HHb (Measured) 0.1 -0.1 L (0-5) % ABG Methemoglobin 1.3 1.1 (0.0-3.0) % ABG O2 Capacity 15.6 L 16.1 (16-24) mL/dl Hgb O2 Saturation 97.0 97.3 (95.0-98.0) % FiO2 35.0 35.0 % Sodium (132-148) mmol/L Potassium (3.6-5.0) mmol/L Chloride (98-107) mmol/L Carbon Dioxide (21-33) mmol/L Anion Gap (10-20) BUN (7-21) mg/dL Creatinine (0.7-1.2) mg/dl Est GFR ( Amer) Est GFR (Non-Af Amer) POC Glucose (mg/dL) 105 (65-110) mg/dL Random Glucose (70-110) mg/dL Calcium (8.4-10.5) mg/dL Magnesium (1.7-2.2) mg/dL Total Bilirubin (0.2-1.3) mg/dL Direct Bilirubin (0.0-0.4) mg/dL AST (14-36) U/L ALT (7-56) U/L Alkaline Phosphatase (38-126) U/L Total Protein (5.8-8.3) g/dL Albumin (3.0-4.8) g/dL Globulin gm/dL Albumin/Globulin Ratio (1.1-1.8) 12/26/17 12/26/17 12/26/17 Range/Units 17:47 13:39 11:26 WBC (4.5-11.0) 10^3/ul RBC (3.5-6.1) 10^6/uL Hgb (12.0-16.0) g/dL Hct (36.0-48.0) % MCV (80.0-105.0) fl MCH (25.0-35.0) pg MCHC (31.0-37.0) g/dl RDW (11.5-14.5) % Plt Count (120.0-450.0) 10^3/uL MPV (7.0-11.0) fl Gran % (50.0-68.0) % Lymph % (Auto) (22.0-35.0) % Bonner % (Auto) (1.0-6.0) % Eos % (Auto) (1.5-5.0) % Baso % (Auto) (0.0-3.0) % Gran # (1.4-6.5) Lymph # (Auto) (1.2-3.4) Bonner # (Auto) (0.1-0.6) Eos # (Auto) (0.0-0.7) Baso # (Auto) (0.0-2.0) K/mm3 Neutrophils % (Manual) (50.0-70.0) % Lymphocytes % (Manual) (22.0-35.0) % Monocytes % (Manual) (1.0-6.0) % pCO2 43 (35-45) mm/Hg pO2 126.0 H (80-100) mm/Hg HCO3 22.2 (21-28) mmol/L ABG pH 7.32 L (7.35-7.45) ABG Total CO2 23.5 (22-28) mmol.L ABG O2 Saturation 99.9 H (95-98) % ABG O2 Content 17.1 (15-23) ML/dl ABG Base Excess -3.8 L (-2.0-3.0) mmol/L ABG Hemoglobin 12.4 (11.7-17.4) g/dL ABG Carboxyhemoglobin 1.6 H (0.5-1.5) % POC ABG HHb (Measured) 0.1 (0-5) % ABG Methemoglobin 1.2 (0.0-3.0) % ABG O2 Capacity 17.1 (16-24) mL/dl Hgb O2 Saturation 97.1 (95.0-98.0) % FiO2 35.0 % Sodium (132-148) mmol/L Potassium (3.6-5.0) mmol/L Chloride (98-107) mmol/L Carbon Dioxide (21-33) mmol/L Anion Gap (10-20) BUN (7-21) mg/dL Creatinine (0.7-1.2) mg/dl Est GFR ( Amer) Est GFR (Non-Af Amer) POC Glucose (mg/dL) 88 75 (65-110) mg/dL Random Glucose (70-110) mg/dL Calcium (8.4-10.5) mg/dL Magnesium (1.7-2.2) mg/dL Total Bilirubin (0.2-1.3) mg/dL Direct Bilirubin (0.0-0.4) mg/dL AST (14-36) U/L ALT (7-56) U/L Alkaline Phosphatase (38-126) U/L Total Protein (5.8-8.3) g/dL Albumin (3.0-4.8) g/dL Globulin gm/dL Albumin/Globulin Ratio (1.1-1.8) 12/26/17 12/26/17 Range/Units 10:35 05:53 WBC (4.5-11.0) 10^3/ul RBC (3.5-6.1) 10^6/uL Hgb (12.0-16.0) g/dL Hct (36.0-48.0) % MCV (80.0-105.0) fl MCH (25.0-35.0) pg MCHC (31.0-37.0) g/dl RDW (11.5-14.5) % Plt Count (120.0-450.0) 10^3/uL MPV (7.0-11.0) fl Gran % (50.0-68.0) % Lymph % (Auto) (22.0-35.0) % Bonner % (Auto) (1.0-6.0) % Eos % (Auto) (1.5-5.0) % Baso % (Auto) (0.0-3.0) % Gran # (1.4-6.5) Lymph # (Auto) (1.2-3.4) Bonner # (Auto) (0.1-0.6) Eos # (Auto) (0.0-0.7) Baso # (Auto) (0.0-2.0) K/mm3 Neutrophils % (Manual) (50.0-70.0) % Lymphocytes % (Manual) (22.0-35.0) % Monocytes % (Manual) (1.0-6.0) % pCO2 40 (35-45) mm/Hg pO2 136.0 H (80-100) mm/Hg HCO3 22.6 (21-28) mmol/L ABG pH 7.36 (7.35-7.45) ABG Total CO2 23.8 (22-28) mmol.L ABG O2 Saturation 100.1 H (95-98) % ABG O2 Content 16.5 (15-23) ML/dl ABG Base Excess -2.7 L (-2.0-3.0) mmol/L ABG Hemoglobin 11.8 (11.7-17.4) g/dL ABG Carboxyhemoglobin 1.5 (0.5-1.5) % POC ABG HHb (Measured) -0.1 L (0-5) % ABG Methemoglobin 0.8 (0.0-3.0) % ABG O2 Capacity 16.5 (16-24) mL/dl Hgb O2 Saturation 97.8 (95.0-98.0) % FiO2 35.0 % Sodium (132-148) mmol/L Potassium (3.6-5.0) mmol/L Chloride (98-107) mmol/L Carbon Dioxide (21-33) mmol/L Anion Gap (10-20) BUN (7-21) mg/dL Creatinine (0.7-1.2) mg/dl Est GFR ( Amer) Est GFR (Non-Af Amer) POC Glucose (mg/dL) 74 (65-110) mg/dL Random Glucose (70-110) mg/dL Calcium (8.4-10.5) mg/dL Magnesium (1.7-2.2) mg/dL Total Bilirubin (0.2-1.3) mg/dL Direct Bilirubin (0.0-0.4) mg/dL AST (14-36) U/L ALT (7-56) U/L Alkaline Phosphatase (38-126) U/L Total Protein (5.8-8.3) g/dL Albumin (3.0-4.8) g/dL Globulin gm/dL Albumin/Globulin Ratio (1.1-1.8) Laboratory Results - last 24 hr 12/26/17 12/26/17 12/26/17 05:53 10:35 11:26 WBC RBC Hgb Hct MCV MCH MCHC RDW Plt Count MPV Gran % Lymph % (Auto) Bonner % (Auto) Eos % (Auto) Baso % (Auto) Gran # Lymph # (Auto) Bonner # (Auto) Eos # (Auto) Baso # (Auto) Neutrophils % (Manual) Lymphocytes % (Manual) Monocytes % (Manual) pCO2 40 pO2 136.0 H HCO3 22.6 ABG pH 7.36 ABG Total CO2 23.8 ABG O2 Saturation 100.1 H ABG O2 Content 16.5 ABG Base Excess -2.7 L ABG Hemoglobin 11.8 ABG Carboxyhemoglobin 1.5 POC ABG HHb (Measured) -0.1 L ABG Methemoglobin 0.8 ABG O2 Capacity 16.5 Hgb O2 Saturation 97.8 FiO2 35.0 Sodium Potassium Chloride Carbon Dioxide Anion Gap BUN Creatinine Est GFR ( Amer) Est GFR (Non-Af Amer) POC Glucose (mg/dL) 74 75 Random Glucose Calcium Magnesium Total Bilirubin Direct Bilirubin AST ALT Alkaline Phosphatase Total Protein Albumin Globulin Albumin/Globulin Ratio 12/26/17 12/26/17 12/26/17 13:39 17:47 23:12 WBC RBC Hgb Hct MCV MCH MCHC RDW Plt Count MPV Gran % Lymph % (Auto) Bonner % (Auto) Eos % (Auto) Baso % (Auto) Gran # Lymph # (Auto) Bonner # (Auto) Eos # (Auto) Baso # (Auto) Neutrophils % (Manual) Lymphocytes % (Manual) Monocytes % (Manual) pCO2 43 45 pO2 126.0 H 131.0 H HCO3 22.2 24.8 ABG pH 7.32 L 7.35 ABG Total CO2 23.5 26.2 ABG O2 Saturation 99.9 H 100.1 H ABG O2 Content 17.1 16.1 ABG Base Excess -3.8 L -1.0 ABG Hemoglobin 12.4 11.6 L ABG Carboxyhemoglobin 1.6 H 1.8 H POC ABG HHb (Measured) 0.1 -0.1 L ABG Methemoglobin 1.2 1.1 ABG O2 Capacity 17.1 16.1 Hgb O2 Saturation 97.1 97.3 FiO2 35.0 35.0 Sodium Potassium Chloride Carbon Dioxide Anion Gap BUN Creatinine Est GFR ( Amer) Est GFR (Non-Af Amer) POC Glucose (mg/dL) 88 Random Glucose Calcium Magnesium Total Bilirubin Direct Bilirubin AST ALT Alkaline Phosphatase Total Protein Albumin Globulin Albumin/Globulin Ratio 12/27/17 12/27/17 12/27/17 00:02 05:00 05:22 WBC RBC Hgb Hct MCV MCH MCHC RDW Plt Count MPV Gran % Lymph % (Auto) Bonner % (Auto) Eos % (Auto) Baso % (Auto) Gran # Lymph # (Auto) Bonner # (Auto) Eos # (Auto) Baso # (Auto) Neutrophils % (Manual) Lymphocytes % (Manual) Monocytes % (Manual) pCO2 45 pO2 130.0 H HCO3 24.8 ABG pH 7.35 ABG Total CO2 26.2 ABG O2 Saturation 99.9 H ABG O2 Content 15.6 ABG Base Excess -1.0 ABG Hemoglobin 11.3 L ABG Carboxyhemoglobin 1.6 H POC ABG HHb (Measured) 0.1 ABG Methemoglobin 1.3 ABG O2 Capacity 15.6 L Hgb O2 Saturation 97.0 FiO2 35.0 Sodium Potassium Chloride Carbon Dioxide Anion Gap BUN Creatinine Est GFR ( Amer) Est GFR (Non-Af Amer) POC Glucose (mg/dL) 105 159 H Random Glucose Calcium Magnesium Total Bilirubin Direct Bilirubin AST ALT Alkaline Phosphatase Total Protein Albumin Globulin Albumin/Globulin Ratio 12/27/17 12/27/17 05:45 05:45 WBC 10.9 D RBC 4.02 Hgb 11.7 L Hct 36.1 MCV 89.8 MCH 29.1 MCHC 32.4 RDW 14.6 H Plt Count 175 MPV 11.9 H Gran % 91.6 H Lymph % (Auto) 5.6 L Bonner % (Auto) 2.7 Eos % (Auto) 0.1 L Baso % (Auto) 0.0 Gran # 9.99 H Lymph # (Auto) 0.6 L Bonner # (Auto) 0.3 Eos # (Auto) 0.0 Baso # (Auto) 0.00 Neutrophils % (Manual) 92 H Lymphocytes % (Manual) 5 L Monocytes % (Manual) 2 pCO2 pO2 HCO3 ABG pH ABG Total CO2 ABG O2 Saturation ABG O2 Content ABG Base Excess ABG Hemoglobin ABG Carboxyhemoglobin POC ABG HHb (Measured) ABG Methemoglobin ABG O2 Capacity Hgb O2 Saturation FiO2 Sodium 142 Potassium 3.7 Chloride 110 H Carbon Dioxide 27 Anion Gap 9 L BUN 20 Creatinine 0.5 L Est GFR ( Amer) > 60 Est GFR (Non-Af Amer) > 60 POC Glucose (mg/dL) Random Glucose 192 H Calcium 8.0 L Magnesium 2.0 Total Bilirubin 0.5 Direct Bilirubin 0.3 AST 24 ALT 54 Alkaline Phosphatase 58 Total Protein 5.4 L Albumin 3.0 Globulin 2.5 Albumin/Globulin Ratio 1.2 EKG/Cardiology Studies: Cardiology / EKG Studies 12/26/17 11:12 ELECTROCARDIOGRAM Stat Comment: Reason For Exam: vt Fingerstick Blood Sugar Results: 159 Critical Care Progress Note - Nutrition Nutrition: Nutrition Category Date Time Status NPO Diet [DIET] Diets 12/23/17 Lunch Ordered Assessment/Plan - Assessment and Plan (Free Text) Assessment: 72 yo AA F in ICU care for Hypercapneic Hypoxic Respiratory Failure likely 2/2 COPD Exacerbation who is intubated but not sedated. Patient failed bipap trial when first brought into ED on 12/16 with initial ABG showing patient to be in severe respiratory acidosis with retention of CO2; patient was also altered as a result of Hypoxemic Hypercapneic Respiratory failure. Patient was doing better and was extubated on 12/18; On 12/23 she was ready for transfer out of ICU when she started desatting and was becoming acutely altered mentally. Most recent ABG today 12/27 shows CO2 of 45, O2 of 130, HCO3 of 24.8, and improving pH of 7.35 with FiO2 of 35. Patient was re-intubated and CT Head after intubation to rule out any neurogenic causes for her desaturation, was negative. Septic work up was ordered with sputum cultures, blood cultures, and urine cultures all negative. CT Chest shows bibasilar atelectasis with possible overlying pneumonia. However , most recent CXR shows improving bilateral venous congestion, and this corresponds to improving clinical exam as well. 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 Cardio: - Possible NSTEMI: No other intervention per Dr. Parry - Beth for DVT ppx; Daily ASA Pulm: - Hypoxic Hypercapneic Respiratory Failure Likely 2/2 PNA VS COPD VS Mixed picture - Vanc/Cefepime/Doxy - Solumedrol, Xopenex, Atrovent, Budesonide - Patient ABG O2 high, changed FiO2 to 30 - ENT consult for tracheostomy: For Friday, 12/30 - Pulm consult: Dr. Smart GI: - Protonix for GI ppx - Miralax Dave; Zofran PRN Renal: - Monitor and replete electrolytes as needed Heme: - Lovenox for DVT ppx Endo: - Maintain euglycemia ID: - Covered for PNA with Cefepime and Vanc; Doxy should be administered via OGT Dispo: Patient for Trach on Friday, will keep her intubated til then. <Sheldon Modi - Last Filed: 12/27/17 11:56> CCU Objective - Vital Signs / Intake & Output Vital Signs (Last 4 hours): Vital Signs Temp Pulse Resp BP Pulse Ox 12/27/17 10:00 78 97/61 L 100 12/27/17 09:58 76 99/60 L 12/27/17 09:00 84 99/60 L 100 12/27/17 08:04 94/59 L 12/27/17 08:03 87 13 99 12/27/17 08:00 99.2 F 78/47 L 12/27/17 07:59 85 15 100 Intake and Output (Last 8hrs): Intake & Output 12/26/17 12/27/17 12/27/17 22:59 06:59 14:59 Intake Total 270 1103 Output Total 625 200 Balance -355 903 Intake: IV 20 683 Left Internal Jugular 335 levophed 18 vancomycin 250 Oral 250 Tube Feeding 360 Other 60 Output: Urine 425 200 Urethral (Oconnell) 425 200 Stool 200 Emesis 0 Other: # Bowel Movements 1 - Medications Active Medications: Active Medications Generic Name Dose Route Start Last Admin Trade Name Freq PRN Reason Stop Dose Admin Acetaminophen 650 mg 12/16/17 19:09 12/17/17 08:30 Tylenol 650 Mg Supp RC 650 mg Q6H PRN Administration TEMP>=99.5F Amiodarone HCl 400 mg 12/26/17 18:00 12/27/17 09:58 Cordarone PO Not Given BID DAVE Aspirin 325 mg 12/20/17 10:00 12/27/17 09:58 Aspirin PO 325 mg DAILY DAVE Administration Atorvastatin Calcium 10 mg 12/19/17 17:00 12/26/17 18:05 Lipitor PO 10 mg DIN DAVE Administration Budesonide 1 mg 12/22/17 20:00 12/27/17 07:02 Pulmicort Respules IH 0.5 mg [id number] DAVE Administration Doxycycline Hyclate 100 mg 12/19/17 22:00 12/27/17 09:58 Doryx PO 100 mg Q12 DAVE Administration Enoxaparin Sodium 40 mg 12/17/17 10:00 12/27/17 09:58 Lovenox SC 40 mg DAILY DAVE Administration Protocol Ergocalciferol 1 cap 12/20/17 10:00 12/27/17 10:03 Drisdol 50,000 Intl Units Cap PO Not Given Q7D DAVE Hydralazine HCl 10 mg 12/23/17 14:29 12/23/17 14:30 Apresoline IVP 10 mg Q6 PRN Administration Systolic Blood Pressure Hydrocortisone Sodium Succinate 25 mg 12/27/17 09:28 12/27/17 09:57 Solu-Cortef IVP 25 mg Q12H DAVE Administration Vancomycin HCl 1 gm in 250 mls @ 167 mls/hr 12/24/17 10:00 12/27/17 09:57 Vancomycin 1gm IVPB 167 mls/hr Q12 DAVE Administration Protocol Cefepime HCl 2 gm in 100 mls @ 100 mls/hr 12/24/17 09:15 12/27/17 05:33 Maxipime 2gm IVPB 12/29/17 09:16 100 mls/hr Q8 DAVE Administration Protocol Propofol 1,000 mg in 100 mls @ 2.252 mls/hr 12/26/17 22:05 12/27/17 08:17 Diprivan IV 33.3 mcg/kg/min .Q24H PRN 14.999 mls/hr TITRATE PER MD ORDER Administration Protocol 5 MCG/KG/MIN Ipratropium Normanna 0.5 mg 12/22/17 14:00 12/27/17 07:03 Atrovent IH 0.5 mg [id number] DAVE Administration Ipratropium Normanna 0.5 mg 12/22/17 12:21 Atrovent IH Q2H PRN Shortness of Breath Levalbuterol HCl 0.63 mg 12/16/17 15:37 Xopenex IH Q2 PRN Shortness of Breath Levalbuterol HCl 0.63 mg 12/22/17 08:00 12/27/17 07:03 Xopenex IH 0.63 mg 0200,0800,1400,2000 DAVE Administration Ondansetron HCl 4 mg 12/16/17 19:09 Zofran Inj IVP Q4H PRN Nausea/Vomiting Pantoprazole Sodium 40 mg 12/23/17 22:00 12/27/17 09:57 Protonix Inj IVP 40 mg Q12 DAVE Administration Polyethylene Glycol 17 gm 12/19/17 10:30 12/27/17 09:57 Miralax PO 17 gm DAILY DAVE Administration - Patient Studies Lab Studies: Microbiology Studies 12/23/17 19:15 Blood Culture - Preliminary Blood NO GROWTH AFTER 3 DAYS 12/23/17 18:15 Blood Culture - Preliminary Blood NO GROWTH AFTER 3 DAYS Lab Studies 12/27/17 12/27/17 12/27/17 Range/Units 05:45 05:45 05:22 WBC 10.9 D (4.5-11.0) 10^3/ul RBC 4.02 (3.5-6.1) 10^6/uL Hgb 11.7 L (12.0-16.0) g/dL Hct 36.1 (36.0-48.0) % MCV 89.8 (80.0-105.0) fl MCH 29.1 (25.0-35.0) pg MCHC 32.4 (31.0-37.0) g/dl RDW 14.6 H (11.5-14.5) % Plt Count 175 (120.0-450.0) 10^3/uL MPV 11.9 H (7.0-11.0) fl Gran % 91.6 H (50.0-68.0) % Lymph % (Auto) 5.6 L (22.0-35.0) % Bonner % (Auto) 2.7 (1.0-6.0) % Eos % (Auto) 0.1 L (1.5-5.0) % Baso % (Auto) 0.0 (0.0-3.0) % Gran # 9.99 H (1.4-6.5) Lymph # (Auto) 0.6 L (1.2-3.4) Bonner # (Auto) 0.3 (0.1-0.6) Eos # (Auto) 0.0 (0.0-0.7) Baso # (Auto) 0.00 (0.0-2.0) K/mm3 Neutrophils % (Manual) 92 H (50.0-70.0) % Lymphocytes % (Manual) 5 L (22.0-35.0) % Monocytes % (Manual) 2 (1.0-6.0) % pCO2 (35-45) mm/Hg pO2 (80-100) mm/Hg HCO3 (21-28) mmol/L ABG pH (7.35-7.45) ABG Total CO2 (22-28) mmol.L ABG O2 Saturation (95-98) % ABG O2 Content (15-23) ML/dl ABG Base Excess (-2.0-3.0) mmol/L ABG Hemoglobin (11.7-17.4) g/dL ABG Carboxyhemoglobin (0.5-1.5) % POC ABG HHb (Measured) (0-5) % ABG Methemoglobin (0.0-3.0) % ABG O2 Capacity (16-24) mL/dl Hgb O2 Saturation (95.0-98.0) % FiO2 % Sodium 142 (132-148) mmol/L Potassium 3.7 (3.6-5.0) mmol/L Chloride 110 H (98-107) mmol/L Carbon Dioxide 27 (21-33) mmol/L Anion Gap 9 L (10-20) BUN 20 (7-21) mg/dL Creatinine 0.5 L (0.7-1.2) mg/dl Est GFR ( Amer) > 60 Est GFR (Non-Af Amer) > 60 POC Glucose (mg/dL) 159 H (65-110) mg/dL Random Glucose 192 H (70-110) mg/dL Calcium 8.0 L (8.4-10.5) mg/dL Magnesium 2.0 (1.7-2.2) mg/dL Total Bilirubin 0.5 (0.2-1.3) mg/dL Direct Bilirubin 0.3 (0.0-0.4) mg/dL AST 24 (14-36) U/L ALT 54 (7-56) U/L Alkaline Phosphatase 58 (38-126) U/L Total Protein 5.4 L (5.8-8.3) g/dL Albumin 3.0 (3.0-4.8) g/dL Globulin 2.5 gm/dL Albumin/Globulin Ratio 1.2 (1.1-1.8) 12/27/17 12/27/17 12/26/17 Range/Units 05:00 00:02 23:12 WBC (4.5-11.0) 10^3/ul RBC (3.5-6.1) 10^6/uL Hgb (12.0-16.0) g/dL Hct (36.0-48.0) % MCV (80.0-105.0) fl MCH (25.0-35.0) pg MCHC (31.0-37.0) g/dl RDW (11.5-14.5) % Plt Count (120.0-450.0) 10^3/uL MPV (7.0-11.0) fl Gran % (50.0-68.0) % Lymph % (Auto) (22.0-35.0) % Bonner % (Auto) (1.0-6.0) % Eos % (Auto) (1.5-5.0) % Baso % (Auto) (0.0-3.0) % Gran # (1.4-6.5) Lymph # (Auto) (1.2-3.4) Bonner # (Auto) (0.1-0.6) Eos # (Auto) (0.0-0.7) Baso # (Auto) (0.0-2.0) K/mm3 Neutrophils % (Manual) (50.0-70.0) % Lymphocytes % (Manual) (22.0-35.0) % Monocytes % (Manual) (1.0-6.0) % pCO2 45 45 (35-45) mm/Hg pO2 130.0 H 131.0 H (80-100) mm/Hg HCO3 24.8 24.8 (21-28) mmol/L ABG pH 7.35 7.35 (7.35-7.45) ABG Total CO2 26.2 26.2 (22-28) mmol.L ABG O2 Saturation 99.9 H 100.1 H (95-98) % ABG O2 Content 15.6 16.1 (15-23) ML/dl ABG Base Excess -1.0 -1.0 (-2.0-3.0) mmol/L ABG Hemoglobin 11.3 L 11.6 L (11.7-17.4) g/dL ABG Carboxyhemoglobin 1.6 H 1.8 H (0.5-1.5) % POC ABG HHb (Measured) 0.1 -0.1 L (0-5) % ABG Methemoglobin 1.3 1.1 (0.0-3.0) % ABG O2 Capacity 15.6 L 16.1 (16-24) mL/dl Hgb O2 Saturation 97.0 97.3 (95.0-98.0) % FiO2 35.0 35.0 % Sodium (132-148) mmol/L Potassium (3.6-5.0) mmol/L Chloride (98-107) mmol/L Carbon Dioxide (21-33) mmol/L Anion Gap (10-20) BUN (7-21) mg/dL Creatinine (0.7-1.2) mg/dl Est GFR ( Amer) Est GFR (Non-Af Amer) POC Glucose (mg/dL) 105 (65-110) mg/dL Random Glucose (70-110) mg/dL Calcium (8.4-10.5) mg/dL Magnesium (1.7-2.2) mg/dL Total Bilirubin (0.2-1.3) mg/dL Direct Bilirubin (0.0-0.4) mg/dL AST (14-36) U/L ALT (7-56) U/L Alkaline Phosphatase (38-126) U/L Total Protein (5.8-8.3) g/dL Albumin (3.0-4.8) g/dL Globulin gm/dL Albumin/Globulin Ratio (1.1-1.8) 12/26/17 12/26/17 12/26/17 Range/Units 17:47 13:39 11:26 WBC (4.5-11.0) 10^3/ul RBC (3.5-6.1) 10^6/uL Hgb (12.0-16.0) g/dL Hct (36.0-48.0) % MCV (80.0-105.0) fl MCH (25.0-35.0) pg MCHC (31.0-37.0) g/dl RDW (11.5-14.5) % Plt Count (120.0-450.0) 10^3/uL MPV (7.0-11.0) fl Gran % (50.0-68.0) % Lymph % (Auto) (22.0-35.0) % Bonner % (Auto) (1.0-6.0) % Eos % (Auto) (1.5-5.0) % Baso % (Auto) (0.0-3.0) % Gran # (1.4-6.5) Lymph # (Auto) (1.2-3.4) Bonner # (Auto) (0.1-0.6) Eos # (Auto) (0.0-0.7) Baso # (Auto) (0.0-2.0) K/mm3 Neutrophils % (Manual) (50.0-70.0) % Lymphocytes % (Manual) (22.0-35.0) % Monocytes % (Manual) (1.0-6.0) % pCO2 43 (35-45) mm/Hg pO2 126.0 H (80-100) mm/Hg HCO3 22.2 (21-28) mmol/L ABG pH 7.32 L (7.35-7.45) ABG Total CO2 23.5 (22-28) mmol.L ABG O2 Saturation 99.9 H (95-98) % ABG O2 Content 17.1 (15-23) ML/dl ABG Base Excess -3.8 L (-2.0-3.0) mmol/L ABG Hemoglobin 12.4 (11.7-17.4) g/dL ABG Carboxyhemoglobin 1.6 H (0.5-1.5) % POC ABG HHb (Measured) 0.1 (0-5) % ABG Methemoglobin 1.2 (0.0-3.0) % ABG O2 Capacity 17.1 (16-24) mL/dl Hgb O2 Saturation 97.1 (95.0-98.0) % FiO2 35.0 % Sodium (132-148) mmol/L Potassium (3.6-5.0) mmol/L Chloride (98-107) mmol/L Carbon Dioxide (21-33) mmol/L Anion Gap (10-20) BUN (7-21) mg/dL Creatinine (0.7-1.2) mg/dl Est GFR ( Amer) Est GFR (Non-Af Amer) POC Glucose (mg/dL) 88 75 (65-110) mg/dL Random Glucose (70-110) mg/dL Calcium (8.4-10.5) mg/dL Magnesium (1.7-2.2) mg/dL Total Bilirubin (0.2-1.3) mg/dL Direct Bilirubin (0.0-0.4) mg/dL AST (14-36) U/L ALT (7-56) U/L Alkaline Phosphatase (38-126) U/L Total Protein (5.8-8.3) g/dL Albumin (3.0-4.8) g/dL Globulin gm/dL Albumin/Globulin Ratio (1.1-1.8) /03/07 Range/Units 05:53 WBC (4.5-11.0) 10^3/ul RBC (3.5-6.1) 10^6/uL Hgb (12.0-16.0) g/dL Hct (36.0-48.0) % MCV (80.0-105.0) fl MCH (25.0-35.0) pg MCHC (31.0-37.0) g/dl RDW (11.5-14.5) % Plt Count (120.0-450.0) 10^3/uL MPV (7.0-11.0) fl Gran % (50.0-68.0) % Lymph % (Auto) (22.0-35.0) % Bonner % (Auto) (1.0-6.0) % Eos % (Auto) (1.5-5.0) % Baso % (Auto) (0.0-3.0) % Gran # (1.4-6.5) Lymph # (Auto) (1.2-3.4) Bonner # (Auto) (0.1-0.6) Eos # (Auto) (0.0-0.7) Baso # (Auto) (0.0-2.0) K/mm3 Neutrophils % (Manual) (50.0-70.0) % Lymphocytes % (Manual) (22.0-35.0) % Monocytes % (Manual) (1.0-6.0) % pCO2 (35-45) mm/Hg pO2 (80-100) mm/Hg HCO3 (21-28) mmol/L ABG pH (7.35-7.45) ABG Total CO2 (22-28) mmol.L ABG O2 Saturation (95-98) % ABG O2 Content (15-23) ML/dl ABG Base Excess (-2.0-3.0) mmol/L ABG Hemoglobin (11.7-17.4) g/dL ABG Carboxyhemoglobin (0.5-1.5) % POC ABG HHb (Measured) (0-5) % ABG Methemoglobin (0.0-3.0) % ABG O2 Capacity (16-24) mL/dl Hgb O2 Saturation (95.0-98.0) % FiO2 % Sodium (132-148) mmol/L Potassium (3.6-5.0) mmol/L Chloride (98-107) mmol/L Carbon Dioxide (21-33) mmol/L Anion Gap (10-20) BUN (7-21) mg/dL Creatinine (0.7-1.2) mg/dl Est GFR ( Amer) Est GFR (Non-Af Amer) POC Glucose (mg/dL) 74 (65-110) mg/dL Random Glucose (70-110) mg/dL Calcium (8.4-10.5) mg/dL Magnesium (1.7-2.2) mg/dL Total Bilirubin (0.2-1.3) mg/dL Direct Bilirubin (0.0-0.4) mg/dL AST (14-36) U/L ALT (7-56) U/L Alkaline Phosphatase (38-126) U/L Total Protein (5.8-8.3) g/dL Albumin (3.0-4.8) g/dL Globulin gm/dL Albumin/Globulin Ratio (1.1-1.8) Laboratory Results - last 24 hr 12/26/17 12/26/17 12/26/17 05:53 11:26 13:39 WBC RBC Hgb Hct MCV MCH MCHC RDW Plt Count MPV Gran % Lymph % (Auto) Bonner % (Auto) Eos % (Auto) Baso % (Auto) Gran # Lymph # (Auto) Bonner # (Auto) Eos # (Auto) Baso # (Auto) Neutrophils % (Manual) Lymphocytes % (Manual) Monocytes % (Manual) pCO2 43 pO2 126.0 H HCO3 22.2 ABG pH 7.32 L ABG Total CO2 23.5 ABG O2 Saturation 99.9 H ABG O2 Content 17.1 ABG Base Excess -3.8 L ABG Hemoglobin 12.4 ABG Carboxyhemoglobin 1.6 H POC ABG HHb (Measured) 0.1 ABG Methemoglobin 1.2 ABG O2 Capacity 17.1 Hgb O2 Saturation 97.1 FiO2 35.0 Sodium Potassium Chloride Carbon Dioxide Anion Gap BUN Creatinine Est GFR ( Amer) Est GFR (Non-Af Amer) POC Glucose (mg/dL) 74 75 Random Glucose Calcium Magnesium Total Bilirubin Direct Bilirubin AST ALT Alkaline Phosphatase Total Protein Albumin Globulin Albumin/Globulin Ratio 12/26/17 12/26/17 12/27/17 17:47 23:12 00:02 WBC RBC Hgb Hct MCV MCH MCHC RDW Plt Count MPV Gran % Lymph % (Auto) Bonner % (Auto) Eos % (Auto) Baso % (Auto) Gran # Lymph # (Auto) Bonner # (Auto) Eos # (Auto) Baso # (Auto) Neutrophils % (Manual) Lymphocytes % (Manual) Monocytes % (Manual) pCO2 45 pO2 131.0 H HCO3 24.8 ABG pH 7.35 ABG Total CO2 26.2 ABG O2 Saturation 100.1 H ABG O2 Content 16.1 ABG Base Excess -1.0 ABG Hemoglobin 11.6 L ABG Carboxyhemoglobin 1.8 H POC ABG HHb (Measured) -0.1 L ABG Methemoglobin 1.1 ABG O2 Capacity 16.1 Hgb O2 Saturation 97.3 FiO2 35.0 Sodium Potassium Chloride Carbon Dioxide Anion Gap BUN Creatinine Est GFR ( Amer) Est GFR (Non-Af Amer) POC Glucose (mg/dL) 88 105 Random Glucose Calcium Magnesium Total Bilirubin Direct Bilirubin AST ALT Alkaline Phosphatase Total Protein Albumin Globulin Albumin/Globulin Ratio 12/27/17 12/27/17 12/27/17 05:00 05:22 05:45 WBC 10.9 D RBC 4.02 Hgb 11.7 L Hct 36.1 MCV 89.8 MCH 29.1 MCHC 32.4 RDW 14.6 H Plt Count 175 MPV 11.9 H Gran % 91.6 H Lymph % (Auto) 5.6 L Bonner % (Auto) 2.7 Eos % (Auto) 0.1 L Baso % (Auto) 0.0 Gran # 9.99 H Lymph # (Auto) 0.6 L Bonner # (Auto) 0.3 Eos # (Auto) 0.0 Baso # (Auto) 0.00 Neutrophils % (Manual) 92 H Lymphocytes % (Manual) 5 L Monocytes % (Manual) 2 pCO2 45 pO2 130.0 H HCO3 24.8 ABG pH 7.35 ABG Total CO2 26.2 ABG O2 Saturation 99.9 H ABG O2 Content 15.6 ABG Base Excess -1.0 ABG Hemoglobin 11.3 L ABG Carboxyhemoglobin 1.6 H POC ABG HHb (Measured) 0.1 ABG Methemoglobin 1.3 ABG O2 Capacity 15.6 L Hgb O2 Saturation 97.0 FiO2 35.0 Sodium Potassium Chloride Carbon Dioxide Anion Gap BUN Creatinine Est GFR ( Amer) Est GFR (Non-Af Amer) POC Glucose (mg/dL) 159 H Random Glucose Calcium Magnesium Total Bilirubin Direct Bilirubin AST ALT Alkaline Phosphatase Total Protein Albumin Globulin Albumin/Globulin Ratio 12/27/17 05:45 WBC RBC Hgb Hct MCV MCH MCHC RDW Plt Count MPV Gran % Lymph % (Auto) Bonner % (Auto) Eos % (Auto) Baso % (Auto) Gran # Lymph # (Auto) Bonner # (Auto) Eos # (Auto) Baso # (Auto) Neutrophils % (Manual) Lymphocytes % (Manual) Monocytes % (Manual) pCO2 pO2 HCO3 ABG pH ABG Total CO2 ABG O2 Saturation ABG O2 Content ABG Base Excess ABG Hemoglobin ABG Carboxyhemoglobin POC ABG HHb (Measured) ABG Methemoglobin ABG O2 Capacity Hgb O2 Saturation FiO2 Sodium 142 Potassium 3.7 Chloride 110 H Carbon Dioxide 27 Anion Gap 9 L BUN 20 Creatinine 0.5 L Est GFR ( Amer) > 60 Est GFR (Non-Af Amer) > 60 POC Glucose (mg/dL) Random Glucose 192 H Calcium 8.0 L Magnesium 2.0 Total Bilirubin 0.5 Direct Bilirubin 0.3 AST 24 ALT 54 Alkaline Phosphatase 58 Total Protein 5.4 L Albumin 3.0 Globulin 2.5 Albumin/Globulin Ratio 1.2 EKG/Cardiology Studies: Cardiology / EKG Studies 12/26/17 11:12 ELECTROCARDIOGRAM Stat Comment: Reason For Exam: vt Critical Care Progress Note - Nutrition Nutrition: Nutrition Category Date Time Status NPO Diet [DIET] Diets 12/23/17 Lunch Ordered Assessment/Plan - Assessment and Plan (Free Text) Assessment: Patient seen and examined on rounds with resident, agree with note with following additions/exceptions: Patient is 72yo female with PMhx COPD (with prior intubations for exacerbations) , asthma, HTN, and pulmonary HTN, a/w hypercapnic resp failure. Currently afebrile, HD stable, comfortable in NAD, intubated, doing well ABG with chronic resp acisosis, compensated, normalized pH. Patient reintubated 3x on this admission, awaiting tracheostomy on Friday/ with ENT COPD exacerbation Resp failure Pulm HTN Recommend: - supp o2, goal sat 90%, daily ABGs/CXR - pulmonary follow up - taper SoluCortef - abx as per AGUSTO - Iva PRN - BP control - GI ppx - DVT ppx - monitor in MICU - awaiting tracheostomy
--- NOTE | 2017-12-27 14:20 | CP.PCM.PN ---
Subjective - Date & Time of Evaluation Date of Evaluation: 12/27/17 Time of Evaluation: 10:40 - Subjective Subjective: Intubated but not in distress, afebrile. Objective - Vital Signs/Intake and Output Vital Signs (last 24 hours): Temp Pulse Resp BP Pulse Ox 99.2 F 78 13 97/61 L 100 12/27/17 08:00 12/27/17 10:00 12/27/17 08:03 12/27/17 10:00 12/27/17 10:00 Intake and Output: 12/27/17 12/27/17 06:59 18:59 Intake Total 1105 Output Total 200 Balance 905 - Medications Medications: Current Medications Acetaminophen (Tylenol 650 Mg Supp) 650 mg RC Q6H PRN PRN Reason: TEMP>=99.5F Last Admin: 12/17/17 08:30 Dose: 650 mg Amiodarone HCl (Cordarone) 400 mg PO BID [facility] Last Admin: 12/27/17 09:58 Dose: Not Given Aspirin (Aspirin) 325 mg PO DAILY [facility] Last Admin: 12/27/17 09:58 Dose: 325 mg Atorvastatin Calcium (Lipitor) 10 mg PO DIN [facility] Last Admin: 12/26/17 18:05 Dose: 10 mg Budesonide (Pulmicort Respules) 1 mg IH [id number] [facility] Last Admin: 12/27/17 07:02 Dose: 0.5 mg Doxycycline Hyclate (Doryx) 100 mg PO Q12 [facility] Last Admin: 12/27/17 09:58 Dose: 100 mg Enoxaparin Sodium (Lovenox) 40 mg SC DAILY [facility] PRN Reason: Protocol Last Admin: 12/27/17 09:58 Dose: 40 mg Ergocalciferol (Drisdol 50,000 Intl Units Cap) 1 cap PO Q7D [facility] Last Admin: 12/27/17 10:03 Dose: Not Given Hydralazine HCl (Apresoline) 10 mg IVP Q6 PRN PRN Reason: Systolic Blood Pressure Last Admin: 12/23/17 14:30 Dose: 10 mg Hydrocortisone Sodium Succinate (Solu-Cortef) 25 mg IVP Q12H [facility] Last Admin: 12/27/17 09:57 Dose: 25 mg Vancomycin HCl (Vancomycin 1gm) 1 gm in 250 mls @ 167 mls/hr IVPB Q12 KRISTINE PRN Reason: Protocol Last Admin: 12/27/17 09:57 Dose: 167 mls/hr Cefepime HCl (Maxipime 2gm) 2 gm in 100 mls @ 100 mls/hr IVPB Q8 KRISTINE PRN Reason: Protocol Stop: 12/29/17 09:16 Last Admin: 12/27/17 05:33 Dose: 100 mls/hr Propofol (Diprivan) 1,000 mg in 100 mls @ 2.252 mls/hr IV .Q24H PRN; Protocol; 5 MCG/KG/MIN PRN Reason: TITRATE PER MD ORDER Last Admin: 12/27/17 08:17 Dose: 33.3 mcg/kg/min, 14.999 mls/hr Ipratropium [place] (Atrovent) 0.5 mg IH [id number] [facility] Last Admin: 12/27/17 07:03 Dose: 0.5 mg Ipratropium [place] (Atrovent) 0.5 mg IH Q2H PRN PRN Reason: Shortness of Breath Levalbuterol HCl (Xopenex) 0.63 mg IH Q2 PRN PRN Reason: Shortness of Breath Levalbuterol HCl (Xopenex) 0.63 mg IH 0200,0800,1400,2000 [facility] Last Admin: 12/27/17 07:03 Dose: 0.63 mg Ondansetron HCl (Zofran Inj) 4 mg IVP Q4H PRN PRN Reason: Nausea/Vomiting Pantoprazole Sodium (Protonix Inj) 40 mg IVP Q12 [facility] Last Admin: 12/27/17 09:57 Dose: 40 mg Polyethylene Glycol (Miralax) 17 gm PO DAILY [facility] Last Admin: 12/27/17 09:57 Dose: 17 gm - Labs Labs: 12/27/17 05:45 12/27/17 05:45 PT 13.0 SECONDS (9.4-12.5) H 12/25/17 15:24 INR 1.14 (0.93-1.08) H 12/25/17 15:24 APTT 32.0 Seconds (25.1-36.5) 12/25/17 15:24 - Constitutional Appears: Chronically Ill, Other (intubated) - Head Exam Head Exam: NORMAL INSPECTION - ENT Exam Additional comments: ET tube in place - Respiratory Exam Respiratory Exam: Decreased Breath Sounds - Cardiovascular Exam Cardiovascular Exam: +S1, +S2 - GI/Abdominal Exam GI & Abdominal Exam: Soft. absent: Tenderness Assessment and Plan - Assessment and Plan (Free Text) Plan: Assessment Severe sepsis with ventilator-dependent respiratory failure due to left sided hospital-acquired pneumonia in this patient with acute COPD exacerbation COPD diastolic chronic CHF S/P hysterectomy obesity with BMI 31 Plan continue Vancomycin, Cefepime and Doxycycline day 5 to complete 4-7 days and will follow up blood and sputum cx; reviewed CT chest which shows left base patchy infiltrates; also reviewed Pulmonary evaluation and recommendations will continue to monitor clinically
--- NOTE | 2017-12-27 15:29 | PN ---
DATE: 12/27/2017 PULMONARY PROGRESS NOTE SUBJECTIVE: The patient was seen and examined in Intensive Care Unit on a ventilator. She is currently on assist control and on 35% FiO2. I have reviewed today's chest x-ray. She is intubated orally. Chest x-ray reveals endotracheal tube in good position. The lungs actually clear with minimal atelectatic changes of both bases, no infiltrates and no effusions. PHYSICAL EXAMINATION: HEAD, EARS, NOSE AND THROAT: Within normal limits. NECK: Supple with no jugular vein distentions. LUNGS: Diminished breath sounds at both lung bases. CARDIOVASCULAR: S1 and S2. No S3. No murmurs. GASTROINTESTINAL: Soft and nontender with no organomegaly. : Within normal limits EXTREMITIES: Without edema. NEUROLOGY: Limited due to sedation SKIN: Dry; intact I have reviewed yesterday's event with some neck swelling and successful reintubation. LABORATORY DATA: Revealed hemoglobin of 11.8. ASSESSMENT: 1. Acute respiratory failure. 2. Ventilator dependency. 3. Chronic obstructive pulmonary disease. 4. Past nicotine dependency. 5. Sepsis syndrome. 6. Resolving left lower lobe pneumonia. PLAN: The patient's pulmonary condition overall improved; however, she still remains ventilator dependent. She is sedated and lethargic. The weaning attempts are being done by the bootmaker hand team. I have discussed this with ICU team and nursing. I also spoke to patient's family about need for tracheostomy for successful weaning. We will follow closely. Remy Peacock MD MTDBrandy
--- NOTE | 2017-12-27 17:15 | PN ---
DATE: 12/27/2017 SUBJECTIVE: The patient is in CCU, bed #3. Overnight and last 24 hours' events were noted. The patient got reintubated after the patient's ET tube came out yesterday while the patient was attempted to be out of bed to chair. The patient was reintubated. According to the nurses' notes, the patient was found to have episodic restlessness and agitation where the patient required sedation and soft wrist restraints. Overnight nurse's notes were reviewed. PHYSICAL EXAMINATION: VITAL SIGNS: T-max 98.8. Telemetry shows sinus rhythm, heart rate averaging 70, 80, and 90 beats per minute. Yesterday, the patient had some nonsustained runs of ventricular tachycardia for which the patient was started on amiodarone by the ICU team. I am not aware if the Cardiology was made aware of that. Blood pressure is 99 to 88 over 50 to 60; O2 sat 100% on pressure support of 35%, PEEP of 5, 350 tidal volume. HEAD: Normocephalic, atraumatic. EENT: Shows pinkish conjunctivae. Anicteric sclerae. Positive ET tube. No neck rigidity. Questionable mild thyromegaly. CHEST: Kyphosis. LUNGS: Positive rhonchi and crepitations bilaterally, mid lung bauer, anteriorly and posteriorly. CARDIOVASCULAR: S1 and S2, regular rhythm. Positive systolic murmur left sternal border, right second intercostal space, left second intercostal space. ABDOMEN: Soft. Positive bowel sound. Nontender. GENITALIA: Female. RECTAL: Deferred. EXTREMITIES: Show positive SCDs. MUSCULOSKELETAL: Shows a body mass index of 31. NEUROLOGICAL: Limited. Gait examination could not be tested. The patient is lying in the bed. DIAGNOSTIC DATA: On 12/27/2017, WBC 10.9, hemoglobin and hematocrit 11.7 and 36.1, platelet 175. ABG on 35% FiO2, pH of 7.35, pCO2 of 45, pO2 of 130, bicarb 25, saturation of 99.9. Sodium 142, potassium 3.7, chloride 110, CO2 of 27, BUN 20, creatinine 0.5, glucose 192, calcium 8, magnesium 2. Chest x-ray shows left lower lobe infiltrate from yesterday. IMPRESSION: 1. Acute relapsing recurrent hypercarbic hypoxic respiratory failure with respiratory acidosis and CO2 narcosis with multiple reintubation. 2. Hypotension. 3. Probably asymptomatic nonsustained ventricular tachycardia. 4. Ventilator-dependent respiratory failure. 5. Multilobar bilateral healthcare-associated versus ventilator-associated aspiration multilobar bilateral pneumonia and infiltrate and pleural effusion. 6. A 0.3 cm right upper lobe nodule. 7. History of hypertension. 8. Status post uncontrolled hypertension. 9. Hypothyroidism. 10. History of dyslipidemia. 11. History of poor compliance. 12. Questionable [id number] myocardial function with elevated troponin. 13. Status post cardiac catheterization. 14. Nonobstructive coronary artery disease. 1. Acute recurrent ventilator dependent respiratory failure with respiratory acidosis, hypercapnic hypercarbic respiratory failure. 2. Multilobar bilateral pneumonia, healthcare-associated pneumonia versus ventilator-associated pneumonia. 3. Transient hypotension. 4. Ventilator-dependent respiratory failure. 5. Leukopenia and leukocytosis. 6. Granulocytosis. 7. Normocytic anemia. 8. Transaminitis. 9. Hypertensive cardiovascular disease with left ventricular hypertrophy. 10. Pleural effusion. 11. Pulmonary vascular congestion and congestive heart failure. 1. Recurrent relapsing acute ventilator-dependent hypoxic hypercarbic respiratory failure with severe respiratory acidosis. 2. Questionable non-ST elevation myocardial infarction with elevated troponin. 3. Status post cardiac catheterization. 4. Left ventricle ejection fraction of 60%. 5. 60 to 70% stenosis of the proximal portion of the second diagonal vessel. 6. Bibasilar bilateral multilobar possible aspiration versus ventilator-dependent pneumonia and pleural effusion. 7. Cardiomegaly. 8. Mild pulmonary vascular congestion. 9. Acute exacerbation of chronic obstructive pulmonary disease with reintubation secondary to recurrent relapsing acute hypoxic, hypercapnic respiratory failure with CO2 narcosis and hypercapnia. 10. Possible non-ST elevation myocardial infarction. 11. Severe sepsis with ventilator-dependent respiratory failure and bibasilar bilateral multilobar healthcare-associated versus ventilator-associated pneumonia with acute exacerbation of chronic obstructive pulmonary disease. 12. Possible diastolic congestive heart failure. 13. Low-grade fever. 14. Tachycardia. 15. Tachypnea. 16. Leukocytosis with leukopenia and normocytic anemia. 17. Granulocytosis. 18. Hypokalemia. 19. Hypomagnesemia. 20. Hypocalcemia. 21. Mild oropharyngeal dysphagia with [id number] risk for aspiration due to minimal fatigue, minimal oral residue, missing teeth, and multiple swallows needed per single bolus. 22. Hypothyroidism. 23. History of hypertension. 24. Hypovitaminosis D. 25. Hyperlipidemia. 26. Inotropic, pressor-dependent hypotension. 27. Toxic metabolic encephalopathy secondary to hypercarbia, hypoxemia, and respiratory acidosis. 1. Recurrent acute relapsing hypoxic hypercarbic hypercapnic respiratory failure, ventilator requiring and ventilator-dependent. 2. Ventilator-dependent and ventilator-requiring hypoxic and hypercarbic respiratory failure with carbon dioxide narcosis and hypoxemia and confusion and obtundation. 3. Hypotension. 4. Transient uncontrolled hypertension and hypertensive urgency. 5. Leukocytosis with granulocytosis. 6. Normocytic anemia. 7. Severe respiratory acidosis. 8. Ventilator-dependent respiratory failure. 9. Hypokalemia. 10. Questionable acute [id number] myocardial infarction with elevated troponin. 11. Transaminitis. 12. Healthcare-associated, ventilator-dependent multilobar bilateral pneumonia with volume loss and minimal right apical scarring. 13. Right upper lobe nodule. 14. Cardiomegaly. 15. Thyromegaly with thyroid calcification. 16. Degenerative joint disease of the spine. 17. T11-T12 subacute compression deformity. 18. Left lower chest and left upper anterior abdominal wall lipoma. 19. Adrenal gland hypertrophy. 20. Feeding dysfunction. 21. Status post left internal jugular triple-lumen catheter central line placement. 22. Questionable lateral ischemic changes on the EKG with left ventricular hypertrophy. 23. Severe sepsis with ventilator-dependent respiratory failure secondary to bilateral multilobar healthcare-associated versus ventilator-dependent pneumonia. 24. Acute exacerbation of chronic obstructive pulmonary disease. 25. Hypovitaminosis D. 26. Dyslipidemia. 27. History of constipation. 1. Questionable and possible steroid versus ICU psychosis with episodic confusion. 2. Acute exacerbation of chronic obstructive pulmonary disease. 3. Status post ventilator-dependent acute hypoxic hypercarbic respiratory failure. 4. Severe respiratory acidosis. 5. Uncontrolled hypertension. 6. Transient tachycardia. 7. Tachypnea. 8. Hypoxemia. 9. Transient leukopenia. 10. Granulocytosis. 11. Severe respiratory acidosis with hypercarbia, hypercapnia and CO2 narcosis with hypoxemia. 12. Refractory acute exacerbation of gtuub-ap-sathwum hypoxic hypercarbic respiratory failure with refractory slow resolving respiratory acidosis. 13. Metabolic alkalosis. 14. Steroid-induced hyperglycemia. 15. Transaminitis. 16. Hypovitaminosis D. 17. Acute exacerbation of chronic obstructive pulmonary disease with hyperinflation. 18. Questionable and possible ICU versus steroid psychosis. 1. Status post ventilator-dependent respiratory failure secondary to acute hypoxic hypercarbic respiratory failure with respiratory acidosis. 2. Acute exacerbation of chronic obstructive pulmonary disease. 3. Recurrent vtszy-ql-mngirdf hypoxic hypercarbic respiratory failure with persistent hypercarbia and hypoxemia and respiratory acidosis. 4. Tachycardia. 5. Uncontrolled hypertension. 6. Tachypnea. 7. Hypoxemia. 8. Leukopenia. 9. Granulocytosis. 10. Persistent recurrent fflid-vi-lhunlpu and acute recurrent hypoxic hypercarbic respiratory failure with respiratory acidosis. 11. Metabolic alkalosis. 12. Hyperglycemia. 13. Transaminitis. 14. Hypovitaminosis D. 15. Non-hemolyzed hyperkalemia. 16. Constipation. 17. Hypothyroidism. 18. Mild oropharyngeal dysphagia with [id number]-we-oflmxeex aspiration risk secondary to minimal fatigue, minimal oral residue and missing teeth. 1. Acute exacerbation of chronic obstructive pulmonary disease. 2. Relapsing recurrent hypercarbia and respiratory acidosis. 3. Mild normocytic anemia with granulocytosis. 4. Non-hemolyzed hyperkalemia. 5. Metabolic alkalosis with rising pCO2. 6. Hyperglycemia. 7. Transaminitis. 8. Hypovitaminosis D. 9. Chronic obstructive pulmonary disease with pulmonary hyperinflation. 10. Left ventricular hypertrophy with repolarization abnormalities and possible anterior ischemic changes on the EKG. 11. Status post ventilator dependent. 12. Acute hypoxic hypercarbic respiratory failure with respiratory acidosis. 13. Acute exacerbation of chronic obstructive pulmonary disease with acute hypoxic respiratory failure with hypercapnia. 14. Acute exacerbation of chronic obstructive pulmonary disease with acute ventilator respiratory failure with hypercapnia. 15. Hypertensive cardiovascular disease with ejection fraction of 68%. 16. Concentric left ventricular hypertrophy with grade I abnormal relaxation patterns. 17. Moderately sclerotic aortic valve. 18. Moderate mitral regurgitation with moderately thickened mitral valve. 19. Trace tricuspid regurgitation. 1. Acute ventilator-dependent acute hypercarbic, hypoxemic respiratory failure and carbon dioxide narcosis. 2. Hypertension. 3. Persistent recurrent, refractor hypercarbia and mild respiratory acidosis. 4. Tachypnea. 5. Hypertension. 6. Mild normocytic anemia. 7. Granulocytosis. 8. Mild non-hemolyzed hyperkalemia. 9. Prerenal kidney injury. 10. Hyperglycemia. 11. Transaminitis. 12. Hypovitaminosis D. 13. Left ventricular ejection fraction of 68% with concentric left ventricular hypertrophy and grade 1 abnormal relaxation pattern. 14. Moderately dilated left atrium. 15. Moderately sclerotic aortic valve. 16. Moderately thickened mitral valve with moderate mitral regurgitation. 17. Hyperlipidemia. 18. Constipation. 1. Acute hypercarbic hypoxic respiratory failure with respiratory acidosis and hypercarbia and carbon dioxide narcosis. 2. Acute exacerbation of chronic obstructive pulmonary disease. 3. Acute ventilator-dependent hypercarbic hypercapnic hypoxic respiratory failure with severe respiratory acidosis. 4. Bronchospasm. 5. Severe acute exacerbation of chronic obstructive pulmonary disease. 6. Tachycardia. 7. Tachypnea. 8. Fever. 9. Febrile illness. 10. Questionable systemic inflammatory response syndrome. 11. Mild normocytic anemia. 12. Granulocytosis. 13. Recurrent hypercarbia and hypercapnia with mild respiratory acidosis and recurrent respiratory acidosis. 14. Prerenal kidney injury. 15. Transaminitis. 16. Hypovitaminosis D. 17. History of hypothyroidism. 18. Left ventricular ejection fraction of 68%. 19. Moderate concentric left ventricular hypertrophy. 20. Grade 1 abnormal relaxation pattern. 21. Moderately dilated left atrium. 22. Moderately sclerotic aortic valve. 23. Moderately thickened mitral valve with moderate mitral regurgitation. 24. Mild oropharyngeal dysphagia with low to moderate risk for aspiration due to minimal fatigue, minimal oral residue, missing teeth and multiple swallows. 25. History of hyperlipidemia. 1. Status post acute ventilator dependent hypercarbic hypoxic respiratory failure with carbon dioxide narcosis and respiratory acidosis. 2. Status post extubation. 3. Hypertension. 4. Mild normocytic anemia with granulocytosis. 5. Acute hypercarbic hypoxic ventilator-dependent respiratory failure, status post extubation with respiratory acidosis, hypercarbia and carbon dioxide narcosis. 6. Prerenal kidney injury. 7. Transaminitis. 8. Hypovitaminosis D. 9. Hypertensive cardiovascular disease with repolarization abnormalities. 10. Left ventricular ejection fraction of 68%. 11. Moderate concentric left ventricular hypertrophy with grade 1 abnormal relaxation pattern. 12. Moderately dilated left atrium. 13. Moderately sclerotic aortic valve. 14. Moderately thickened mitral valve with moderate mitral regurgitation. 15. Trace tricuspid regurgitation. 16. Carbon dioxide narcosis. 17. Acute exacerbation of severe chronic obstructive pulmonary disease. 18. History of hypothyroidism. 19. History of pulmonary hypertension. 20. High-grade fever of 101 degrees Fahrenheit. 21. Deconditioning. 22. Gait dysfunction. 23. History o hyperlipidemia. 24. History of constipation. 25. History of hypovitaminosis D. 1. Acute hypercarbic hypercapnic hypoxic ventilator-dependent respiratory failure with severe respiratory acidosis. 2. Resolving bronchospasm. 3. Fever of 100.8. 4. Mild normocytic anemia. 5. Granulocytosis. 6. Hypercarbia. 7. CO2 narcosis. 8. Transaminitis. 9. History of hypothyroidism. 10. Hypertensive cardiovascular disease with T-wave inversion I, aVL, V1 to V6. 11. Borderline hypokalemia. 1. Ventilator-dependent acute hypercarbic hypercapnic hypoxic respiratory failure with severe respiratory acidosis. 2. Bronchospasm. 3. Acute exacerbation of chronic obstructive pulmonary disease. 4. Normocytic anemia with granulocytosis. 5. Hypercarbia and hypercapnia. 6. Carbon dioxide narcosis. 7. Severe respiratory acidosis and hypoxemia. 8. Metabolic alkalosis. 9. Hyperglycemia. 10. Transaminitis. 11. Mild acute exacerbation of right-sided diastolic congestive heart failure with elevated BNP. 12. Indeterminate troponin. 13. Sinus tachycardia. 14. Left axis deviation. 15. Ventilator-dependent respiratory failure. 16. History of hypertension, hyperlipidemia, hypothyroidism, hypovitaminosis D. 17.Mild oropharyngeal dysphagia with [id number]-[id number] risk for aspiration due to minimal fatigue, minimal oral residue, missing teeth and multiple swallows needed per single bolus PLAN: At this time, the patient is to be continued on ventilator support. The patient is on 35% FiO2, PEEP of 5, and 350 tidal volume. CURRENT MEDICATIONS: Aspirin 325 mg p.o. daily, Atrovent nebulizer treatment 0.5 mg every 6 hours [id number]-nyjbs and every 2 hours p.r.n. The patient is started on amiodarone 400 twice a day by the ICU team. The patient is on propofol drip. The patient is on doxycycline 100 mg p.o. every 12 hours, Drisdol 50,000 weekly, Lovenox 40 mg subcu daily, Maxipime 2 g IV every 8 hours, MiraLax 17 g daily, Protonix 40 mg IV every 12 hours, Pulmicort nebulizer 1 mg every 12 hours, Solu-Cortef decreased to 25 mg IV every 12 hours, Tylenol suppository p.r.n., vancomycin 1 g IV every 12 hours, Xopenex nebulizer 0.63 mg every 6 hours and every 2 hours p.r.n., and Zofran 4 mg IV every 4 hours p.r.n. At present, the patient's condition is critical. Prognosis guarded. Family aware. Awaiting family's decision regarding tracheostomy. Time spent in the entire management more than 35 minutes. Dictated and electronically signed, not read. Garett Rodríguez MD MTDD
[2017-12-28] MEDS: Levalbuterol 0.63 MG/3 ML Inhal Soln UD IH SCH ×3 (01:29→20:00)
[2017-12-28] MEDS: Ipratropium 0.02% Inhal Soln (0.5 mg/2.5 ml) UD IH SCH ×4 (01:29→20:52)
[2017-12-28] MEDS: Propofol 10 mg/ml 1,000 MG/100 ML VIAL IV PRN (03:19)
[2017-12-28] MEDS: Cefepime IV 2 gm in NS 2 GM/100 ML BAG IVPB SCH ×3 (05:10→21:25)
[2017-12-28 06:01] LABS: GRAN # 7.71 (1.4-6.5); GRAN % 85.8 % (50.0-68.0); HEMOGLOBIN 10.3 g/dL (12.0-16.0); LYMPH # 0.9 (1.2-3.4); MEAN CELL VOLUME 89.1 fl (80.0-105.0); MEAN CORPUSCULAR HEMOGLOBIN 28.9 pg (25.0-35.0); MEAN CORPUSCULAR HGB CONC 32.4 g/dl (31.0-37.0); MEAN PLATELET VOLUME 11.5 fl (7.0-11.0); MONO # 0.4 (0.1-0.6); MONO % 4.2 % (1.0-6.0); RBC 3.57 10^6/uL (3.5-6.1); RED CELL DISTRIBUTION WIDTH 14.4 % (11.5-14.5)
[2017-12-28 06:23] LABS: ARTERIAL BLOOD GAS HCO3 29.1 mmol/L (21-28); ARTERIAL BLOOD GAS HEMOGLOBIN 14.2 g/dL (11.7-17.4); ARTERIAL BLOOD GAS O2 CAPACITY 19.6 mL/dl (16-24); ARTERIAL BLOOD GAS O2 CONTENT 19.6 ML/dl (15-23); ARTERIAL BLOOD GAS PCO2 48 mm/Hg (35-45); ARTERIAL BLOOD GAS PH 7.39 (7.35-7.45); ARTERIAL BLOOD GAS TCO2 30.6 mmol.L (22-28)
--- NOTE | 2017-12-28 06:36 | CP.CCUPN ---
<Caroline Yoder - Last Filed: 12/28/17 12:16> CCU Subjective - Physician Review Subjective (Free Text): 12/28/17 09:38 PRVC overnight. Switch to PS 5/10 above. O2 30 Off propofol 12/28/17 12:12 SVT for 5 seconds. Decrease cordone 400 bid to 200 bid CCU Objective - Vital Signs / Intake & Output Intake and Output (Last 8hrs): Intake & Output 12/27/17 12/27/17 12/28/17 14:59 22:59 06:59 Intake Total 100 860 100 Output Total 380 Balance 100 480 100 Intake: IV 100 350 100 Left Internal Jugular 100 vancomycin 250 Tube Feeding 450 Other 60 Output: Urine 380 Urethral (Oconnell) 380 Stool 0 - Physical Exam Head: Positive for: Atraumatic, Normocephalic Pupils: Positive for: PERRL. Negative for: Non-Reactive, Pinpoint Extroacular Muscles: Positive for: EOMI. Negative for: Gaze Palsy, Entrapment Conjunctiva: Positive for: Normal. Negative for: Injected, Icteric Mouth: Positive for: Moist Mucous Membranes, Normal Lips, Normal Tounge. Negative for: Drooling Pharnyx: Positive for: Other (face and jaw swollen) Nose (External): Positive for: Atraumatic. Negative for: Abrasion, Laceration Nose (Internal): Positive for: Normal Inspection, No Active Bleeding. Negative for: Epistaxis Neck: Positive for: Normal Range of Motion. Negative for: Meningeal Signs, MIDLINE TENDERNESS, Paraspinal Tenderness, JVD Respiratory/Chest: Positive for: Clear to Auscultation, Good Air Exchange, Decreased Breath Sounds (mildly decreased breath sounds all bauer, again improved over prior exams). Negative for: Respiratory Distress, Accessory Muscle Use, Wheezes (no further wheezing appreciated on exam today), Rales, Rhonchi Cardiovascular: Positive for: Regular Rate and Rhythm, Normal S1, S2. Negative for: Murmurs, Irregular Rhythm, Tachycardic, Bradycardic Abdomen: Negative for: Tenderness, Distention, Peritoneal Signs Back: Positive for: Normal Inspection. Negative for: CVA Tenderness, Midline Tenderness, Paraspinal Tenderness Upper Extremity: Positive for: Normal Inspection, Normal ROM, NORMAL PULSES. Negative for: Cyanosis, Edema, Tenderness, Swelling, Erythema, Deformity Lower Extremity: Positive for: Normal Inspection, NORMAL PULSES, Normal ROM. Negative for: Edema, CALF TENDERNESS, Cyanosis, Tenderness, Swelling, Erythema, Deformity Neurological: Positive for: GCS=15, Speech Normal, Motor Func Grossly Intact, Normal Sensory Function, Other (following all commands appropriately, no appreciable lethargy/somnolence) Skin: Positive for: Warm, Dry, Normal Color. Negative for: Rashes Psychiatric: Positive for: Alert, Oriented x 3 (x4 (self, location, year, president)), Normal Insight, Normal Concentration, Normal Affect, Normal Mood - Medications Active Medications: Active Medications Generic Name Dose Route Start Last Admin Trade Name Freq PRN Reason Stop Dose Admin Acetaminophen 650 mg 12/16/17 19:09 12/17/17 08:30 Tylenol 650 Mg Supp RC 650 mg Q6H PRN Administration TEMP>=99.5F Amiodarone HCl 400 mg 12/26/17 18:00 12/27/17 18:12 Cordarone PO Not Given BID DAVE Aspirin 325 mg 12/20/17 10:00 12/27/17 09:58 Aspirin PO 325 mg DAILY DAVE Administration Atorvastatin Calcium 10 mg 12/19/17 17:00 12/27/17 18:11 Lipitor PO 10 mg DIN DAVE Administration Budesonide 1 mg 12/22/17 20:00 12/27/17 20:09 Pulmicort Respules IH 1 mg [id number] DAVE Administration Doxycycline Hyclate 100 mg 12/19/17 22:00 12/27/17 21:21 Doryx PO 100 mg Q12 DAVE Administration Enoxaparin Sodium 40 mg 12/17/17 10:00 12/27/17 09:58 Lovenox SC 40 mg DAILY DAVE Administration Protocol Ergocalciferol 1 cap 12/20/17 10:00 12/27/17 10:03 Drisdol 50,000 Intl Units Cap PO Not Given Q7D DAVE Hydralazine HCl 10 mg 12/23/17 14:29 12/23/17 14:30 Apresoline IVP 10 mg Q6 PRN Administration Systolic Blood Pressure Hydrocortisone Sodium Succinate 25 mg 12/27/17 09:28 12/27/17 21:17 Solu-Cortef IVP 25 mg Q12H DAVE Administration Vancomycin HCl 1 gm in 250 mls @ 167 mls/hr 12/24/17 10:00 12/27/17 21:18 Vancomycin 1gm IVPB 167 mls/hr Q12 DAVE Administration Protocol Cefepime HCl 2 gm in 100 mls @ 100 mls/hr 12/24/17 09:15 12/28/17 05:10 Maxipime 2gm IVPB 12/29/17 09:16 100 mls/hr Q8 DAVE Administration Protocol Propofol 1,000 mg in 100 mls @ 2.252 mls/hr 12/26/17 22:05 12/28/17 03:19 Diprivan IV 22.2 mcg/kg/min .Q24H PRN 10 mls/hr TITRATE PER MD ORDER Administration Protocol 5 MCG/KG/MIN Ipratropium Brandon 0.5 mg 12/22/17 14:00 12/28/17 01:29 Atrovent IH 0.5 mg [id number] DAVE Administration Ipratropium Brandon 0.5 mg 12/22/17 12:21 Atrovent IH Q2H PRN Shortness of Breath Levalbuterol HCl 0.63 mg 12/16/17 15:37 Xopenex IH Q2 PRN Shortness of Breath Levalbuterol HCl 0.63 mg 12/22/17 08:00 12/28/17 01:29 Xopenex IH 0.63 mg 0200,0800,1400,2000 DAVE Administration Ondansetron HCl 4 mg 12/16/17 19:09 Zofran Inj IVP Q4H PRN Nausea/Vomiting Pantoprazole Sodium 40 mg 12/23/17 22:00 12/27/17 21:16 Protonix Inj IVP 40 mg Q12 DAVE Administration Polyethylene Glycol 17 gm 12/19/17 10:30 12/27/17 09:57 Miralax PO 17 gm DAILY DAVE Administration - Patient Studies Lab Studies: Microbiology Studies 12/23/17 19:15 Blood Culture - Preliminary Blood NO GROWTH AFTER 4 DAYS 12/23/17 18:15 Blood Culture - Preliminary Blood NO GROWTH AFTER 4 DAYS Lab Studies 12/28/17 12/28/17 12/28/17 Range/Units 05:45 05:43 00:23 WBC 9.0 (4.5-11.0) 10^3/ul RBC 3.57 (3.5-6.1) 10^6/uL Hgb 10.3 L (12.0-16.0) g/dL Hct 31.8 L (36.0-48.0) % MCV 89.1 (80.0-105.0) fl MCH 28.9 (25.0-35.0) pg MCHC 32.4 (31.0-37.0) g/dl RDW 14.4 (11.5-14.5) % Plt Count 145 (120.0-450.0) 10^3/uL MPV 11.5 H (7.0-11.0) fl Gran % 85.8 H (50.0-68.0) % Lymph % (Auto) 10.0 L (22.0-35.0) % Trigg % (Auto) 4.2 (1.0-6.0) % Eos % (Auto) 0.0 L (1.5-5.0) % Baso % (Auto) 0.0 (0.0-3.0) % Gran # 7.71 H (1.4-6.5) Lymph # (Auto) 0.9 L (1.2-3.4) Trigg # (Auto) 0.4 (0.1-0.6) Eos # (Auto) 0.0 (0.0-0.7) Baso # (Auto) 0.00 (0.0-2.0) K/mm3 Neutrophils % (Manual) (50.0-70.0) % Lymphocytes % (Manual) (22.0-35.0) % Monocytes % (Manual) (1.0-6.0) % Sodium (132-148) mmol/L Potassium (3.6-5.0) mmol/L Chloride (98-107) mmol/L Carbon Dioxide (21-33) mmol/L Anion Gap (10-20) BUN (7-21) mg/dL Creatinine (0.7-1.2) mg/dl Est GFR ( Amer) Est GFR (Non-Af Amer) POC Glucose (mg/dL) 185 H 168 H (65-110) mg/dL Random Glucose (70-110) mg/dL Calcium (8.4-10.5) mg/dL Magnesium (1.7-2.2) mg/dL Total Bilirubin (0.2-1.3) mg/dL Direct Bilirubin (0.0-0.4) mg/dL AST (14-36) U/L ALT (7-56) U/L Alkaline Phosphatase (38-126) U/L Total Protein (5.8-8.3) g/dL Albumin (3.0-4.8) g/dL Globulin gm/dL Albumin/Globulin Ratio (1.1-1.8) 12/27/17 12/27/17 12/27/17 Range/Units 18:20 11:58 05:45 WBC (4.5-11.0) 10^3/ul RBC (3.5-6.1) 10^6/uL Hgb (12.0-16.0) g/dL Hct (36.0-48.0) % MCV (80.0-105.0) fl MCH (25.0-35.0) pg MCHC (31.0-37.0) g/dl RDW (11.5-14.5) % Plt Count (120.0-450.0) 10^3/uL MPV (7.0-11.0) fl Gran % (50.0-68.0) % Lymph % (Auto) (22.0-35.0) % Trigg % (Auto) (1.0-6.0) % Eos % (Auto) (1.5-5.0) % Baso % (Auto) (0.0-3.0) % Gran # (1.4-6.5) Lymph # (Auto) (1.2-3.4) Trigg # (Auto) (0.1-0.6) Eos # (Auto) (0.0-0.7) Baso # (Auto) (0.0-2.0) K/mm3 Neutrophils % (Manual) (50.0-70.0) % Lymphocytes % (Manual) (22.0-35.0) % Monocytes % (Manual) (1.0-6.0) % Sodium 142 (132-148) mmol/L Potassium 3.7 (3.6-5.0) mmol/L Chloride 110 H (98-107) mmol/L Carbon Dioxide 27 (21-33) mmol/L Anion Gap 9 L (10-20) BUN 20 (7-21) mg/dL Creatinine 0.5 L (0.7-1.2) mg/dl Est GFR ( Amer) > 60 Est GFR (Non-Af Amer) > 60 POC Glucose (mg/dL) 151 H 177 H (65-110) mg/dL Random Glucose 192 H (70-110) mg/dL Calcium 8.0 L (8.4-10.5) mg/dL Magnesium 2.0 (1.7-2.2) mg/dL Total Bilirubin 0.5 (0.2-1.3) mg/dL Direct Bilirubin 0.3 (0.0-0.4) mg/dL AST 24 (14-36) U/L ALT 54 (7-56) U/L Alkaline Phosphatase 58 (38-126) U/L Total Protein 5.4 L (5.8-8.3) g/dL Albumin 3.0 (3.0-4.8) g/dL Globulin 2.5 gm/dL Albumin/Globulin Ratio 1.2 (1.1-1.8) 12/27/17 Range/Units 05:45 WBC 10.9 D (4.5-11.0) 10^3/ul RBC 4.02 (3.5-6.1) 10^6/uL Hgb 11.7 L (12.0-16.0) g/dL Hct 36.1 (36.0-48.0) % MCV 89.8 (80.0-105.0) fl MCH 29.1 (25.0-35.0) pg MCHC 32.4 (31.0-37.0) g/dl RDW 14.6 H (11.5-14.5) % Plt Count 175 (120.0-450.0) 10^3/uL MPV 11.9 H (7.0-11.0) fl Gran % 91.6 H (50.0-68.0) % Lymph % (Auto) 5.6 L (22.0-35.0) % Trigg % (Auto) 2.7 (1.0-6.0) % Eos % (Auto) 0.1 L (1.5-5.0) % Baso % (Auto) 0.0 (0.0-3.0) % Gran # 9.99 H (1.4-6.5) Lymph # (Auto) 0.6 L (1.2-3.4) Trigg # (Auto) 0.3 (0.1-0.6) Eos # (Auto) 0.0 (0.0-0.7) Baso # (Auto) 0.00 (0.0-2.0) K/mm3 Neutrophils % (Manual) 92 H (50.0-70.0) % Lymphocytes % (Manual) 5 L (22.0-35.0) % Monocytes % (Manual) 2 (1.0-6.0) % Sodium (132-148) mmol/L Potassium (3.6-5.0) mmol/L Chloride (98-107) mmol/L Carbon Dioxide (21-33) mmol/L Anion Gap (10-20) BUN (7-21) mg/dL Creatinine (0.7-1.2) mg/dl Est GFR ( Amer) Est GFR (Non-Af Amer) POC Glucose (mg/dL) (65-110) mg/dL Random Glucose (70-110) mg/dL Calcium (8.4-10.5) mg/dL Magnesium (1.7-2.2) mg/dL Total Bilirubin (0.2-1.3) mg/dL Direct Bilirubin (0.0-0.4) mg/dL AST (14-36) U/L ALT (7-56) U/L Alkaline Phosphatase (38-126) U/L Total Protein (5.8-8.3) g/dL Albumin (3.0-4.8) g/dL Globulin gm/dL Albumin/Globulin Ratio (1.1-1.8) Laboratory Results - last 24 hr 12/27/17 12/27/17 12/27/17 05:45 05:45 11:58 WBC 10.9 D RBC 4.02 Hgb 11.7 L Hct 36.1 MCV 89.8 MCH 29.1 MCHC 32.4 RDW 14.6 H Plt Count 175 MPV 11.9 H Gran % 91.6 H Lymph % (Auto) 5.6 L Trigg % (Auto) 2.7 Eos % (Auto) 0.1 L Baso % (Auto) 0.0 Gran # 9.99 H Lymph # (Auto) 0.6 L Trigg # (Auto) 0.3 Eos # (Auto) 0.0 Baso # (Auto) 0.00 Neutrophils % (Manual) 92 H Lymphocytes % (Manual) 5 L Monocytes % (Manual) 2 Sodium 142 Potassium 3.7 Chloride 110 H Carbon Dioxide 27 Anion Gap 9 L BUN 20 Creatinine 0.5 L Est GFR ( Amer) > 60 Est GFR (Non-Af Amer) > 60 POC Glucose (mg/dL) 177 H Random Glucose 192 H Calcium 8.0 L Magnesium 2.0 Total Bilirubin 0.5 Direct Bilirubin 0.3 AST 24 ALT 54 Alkaline Phosphatase 58 Total Protein 5.4 L Albumin 3.0 Globulin 2.5 Albumin/Globulin Ratio 1.2 12/27/17 12/28/17 12/28/17 18:20 00:23 05:43 WBC RBC Hgb Hct MCV MCH MCHC RDW Plt Count MPV Gran % Lymph % (Auto) Trigg % (Auto) Eos % (Auto) Baso % (Auto) Gran # Lymph # (Auto) Trigg # (Auto) Eos # (Auto) Baso # (Auto) Neutrophils % (Manual) Lymphocytes % (Manual) Monocytes % (Manual) Sodium Potassium Chloride Carbon Dioxide Anion Gap BUN Creatinine Est GFR ( Amer) Est GFR (Non-Af Amer) POC Glucose (mg/dL) 151 H 168 H 185 H Random Glucose Calcium Magnesium Total Bilirubin Direct Bilirubin AST ALT Alkaline Phosphatase Total Protein Albumin Globulin Albumin/Globulin Ratio 12/28/17 05:45 WBC 9.0 RBC 3.57 Hgb 10.3 L Hct 31.8 L MCV 89.1 MCH 28.9 MCHC 32.4 RDW 14.4 Plt Count 145 MPV 11.5 H Gran % 85.8 H Lymph % (Auto) 10.0 L Trigg % (Auto) 4.2 Eos % (Auto) 0.0 L Baso % (Auto) 0.0 Gran # 7.71 H Lymph # (Auto) 0.9 L Trigg # (Auto) 0.4 Eos # (Auto) 0.0 Baso # (Auto) 0.00 Neutrophils % (Manual) Lymphocytes % (Manual) Monocytes % (Manual) Sodium Potassium Chloride Carbon Dioxide Anion Gap BUN Creatinine Est GFR ( Amer) Est GFR (Non-Af Amer) POC Glucose (mg/dL) Random Glucose Calcium Magnesium Total Bilirubin Direct Bilirubin AST ALT Alkaline Phosphatase Total Protein Albumin Globulin Albumin/Globulin Ratio Fingerstick Blood Sugar Results: 169 Critical Care Progress Note - Nutrition Nutrition: Nutrition Category Date Time Status NPO Diet [DIET] Diets 12/23/17 Lunch Ordered Assessment/Plan - Assessment and Plan (Free Text) Plan: Ms Peggy Daniels, 72 yo AA F in ICU care for Hypercapneic Hypoxic Respiratory Failure likely 2/2 COPD Exacerbation who is intubated but not sedated. Patient failed bipap trial when first brought into ED on 12/16 with initial ABG showing patient to be in severe respiratory acidosis with retention of CO2; patient was also altered as a result of Hypoxemic Hypercapneic Respiratory failure. Patient was doing better and was extubated on 12/18; On 12/23 she was ready for transfer out of ICU when she started desatting and was becoming acutely altered mentally. Patient was re-intubated and CT Head after intubation to rule out any neurogenic causes for her desaturation, was negative. Septic work up was ordered with sputum cultures, blood cultures, and urine cultures all negative. CT Chest shows bibasilar atelectasis with possible overlying pneumonia. However , most recent CXR shows improving bilateral venous congestion, and this corresponds to improving clinical exam as well. A: Hypercapneic Hypoxic Respiratory Failure likely 2/2 COPD Exacerbation and LLL pneumonia, pending trach on Friday NSTEMI, s/p cath, no critical lesions, trope was elevated. 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 Cardio: - Possible NSTEMI: No other intervention per Dr. Parry - Lovenox for DVT ppx; Daily ASA Pulm: - Hypoxic Hypercapneic Respiratory Failure Likely 2/2 PNA VS COPD VS Mixed picture - Vanc/Cefepime/Doxy - Solumedrol, Xopenex, Atrovent, Budesonide - Patient ABG O2 high, changed FiO2 to 30 - ENT consult for tracheostomy: For Friday, 12/30 - Pulm consult: Dr. Smart GI: - Protonix for GI ppx - Miralax Dave; Zofran PRN Renal: - Monitor and replete electrolytes as needed Heme: - Lovenox for DVT ppx Endo: - Maintain euglycemia ID: - Covered for PNA with Cefepime and Vanc; Doxy should be administered via OGT Dispo: Patient for Trach on Friday, will keep her intubated til then. s/r/d/w Dr. Modi <[email or web address] - Last Filed: 12/28/17 12:52> CCU Objective - Vital Signs / Intake & Output Vital Signs (Last 4 hours): Vital Signs Temp Pulse BP Pulse Ox 12/28/17 12:00 99.2 F 89 124/92 H 94 L 12/28/17 11:00 97 H 129/76 100 12/28/17 10:13 93 H 99/62 L 12/28/17 10:12 92 H 99/62 L 100 12/28/17 10:00 81 91/53 L 100 12/28/17 09:51 84 113/62 12/28/17 09:00 76 113/62 100 Intake and Output (Last 8hrs): Intake & Output 12/27/17 12/28/17 12/28/17 22:59 06:59 14:59 Intake Total 860 495 Output Total 380 400 Balance 480 95 Weight 129 lb 7 oz Intake: IV 350 495 Left Internal Jugular 100 120 vancomycin 250 275 Tube Feeding 450 Other 60 Output: Urine 380 400 Urethral (Oconnell) 380 400 Stool 0 - Medications Active Medications: Active Medications Generic Name Dose Route Start Last Admin Trade Name Freq PRN Reason Stop Dose Admin Acetaminophen 650 mg 12/16/17 19:09 12/17/17 08:30 Tylenol 650 Mg Supp RC 650 mg Q6H PRN Administration TEMP>=99.5F Amiodarone HCl 200 mg 12/28/17 10:15 12/28/17 10:13 Cordarone PO 200 mg Q12 DAVE Administration Aspirin 325 mg 12/20/17 10:00 12/28/17 09:49 Aspirin PO 325 mg DAILY DAVE Administration Atorvastatin Calcium 10 mg 12/19/17 17:00 12/27/17 18:11 Lipitor PO 10 mg DIN DAVE Administration Budesonide 1 mg 12/22/17 20:00 12/28/17 07:10 Pulmicort Respules IH 0.5 mg [id number] DAVE Administration Doxycycline Hyclate 100 mg 12/19/17 22:00 06/10/18 09:49 Doryx PO 100 mg Q12 DAVE Administration Enoxaparin Sodium 40 mg 12/17/17 10:00 12/28/17 09:49 Lovenox SC 40 mg DAILY DAVE Administration Protocol Ergocalciferol 1 cap 12/20/17 10:00 12/27/17 10:03 Drisdol 50,000 Intl Units Cap PO Not Given Q7D DAVE Hydralazine HCl 10 mg 12/23/17 14:29 12/23/17 14:30 Apresoline IVP 10 mg Q6 PRN Administration Systolic Blood Pressure Hydrocortisone Sodium Succinate 25 mg 12/29/17 10:00 Solu-Cortef IVP DAILY DAVE Vancomycin HCl 1 gm in 250 mls @ 167 mls/hr 12/24/17 10:00 12/28/17 09:48 Vancomycin 1gm IVPB 167 mls/hr Q12 DAVE Administration Protocol Cefepime HCl 2 gm in 100 mls @ 100 mls/hr 12/24/17 09:15 12/28/17 05:10 Maxipime 2gm IVPB 12/29/17 09:16 100 mls/hr Q8 DAVE Administration Protocol Propofol 1,000 mg in 100 mls @ 2.252 mls/hr 12/26/17 22:05 12/28/17 03:19 Diprivan IV 22.2 mcg/kg/min .Q24H PRN 10 mls/hr TITRATE PER MD ORDER Administration Protocol 5 MCG/KG/MIN Potassium Chloride 20 meq in 100 mls @ 50 mls/hr 12/28/17 12:23 Potassium Chloride 20 Meq/100 Ml IVPB 12/28/17 14:22 ONCE ONE Ipratropium Brandon 0.5 mg 12/22/17 14:00 12/28/17 07:10 Atrovent IH 0.5 mg [id number] DAVE Administration Ipratropium Brandon 0.5 mg 12/22/17 12:21 Atrovent IH Q2H PRN Shortness of Breath Levalbuterol HCl 0.63 mg 12/16/17 15:37 Xopenex IH Q2 PRN Shortness of Breath Levalbuterol HCl 0.63 mg 12/22/17 08:00 12/28/17 01:29 Xopenex IH 0.63 mg 0200,0800,1400,2000 DAVE Administration Ondansetron HCl 4 mg 12/16/17 19:09 Zofran Inj IVP Q4H PRN Nausea/Vomiting Pantoprazole Sodium 40 mg 12/23/17 22:00 12/28/17 09:49 Protonix Inj IVP 40 mg Q12 DAVE Administration Polyethylene Glycol 17 gm 12/19/17 10:30 12/28/17 09:48 Miralax PO 17 gm DAILY DAVE Administration - Patient Studies Lab Studies: Microbiology Studies 12/23/17 19:15 Blood Culture - Preliminary Blood NO GROWTH AFTER 4 DAYS 12/23/17 18:15 Blood Culture - Preliminary Blood NO GROWTH AFTER 4 DAYS Lab Studies 12/28/17 12/28/17 12/28/17 Range/Units 12:11 06:00 05:45 WBC (4.5-11.0) 10^3/ul RBC (3.5-6.1) 10^6/uL Hgb (12.0-16.0) g/dL Hct (36.0-48.0) % MCV (80.0-105.0) fl MCH (25.0-35.0) pg MCHC (31.0-37.0) g/dl RDW (11.5-14.5) % Plt Count (120.0-450.0) 10^3/uL MPV (7.0-11.0) fl Gran % (50.0-68.0) % Lymph % (Auto) (22.0-35.0) % Trigg % (Auto) (1.0-6.0) % Eos % (Auto) (1.5-5.0) % Baso % (Auto) (0.0-3.0) % Gran # (1.4-6.5) Lymph # (Auto) (1.2-3.4) Trigg # (Auto) (0.1-0.6) Eos # (Auto) (0.0-0.7) Baso # (Auto) (0.0-2.0) K/mm3 pCO2 48 H (35-45) mm/Hg pO2 140.0 H (80-100) mm/Hg HCO3 29.1 H (21-28) mmol/L ABG pH 7.39 (7.35-7.45) ABG Total CO2 30.6 H (22-28) mmol.L ABG O2 Saturation 100.0 H (95-98) % ABG O2 Content 19.6 (15-23) ML/dl ABG Base Excess 3.2 H (-2.0-3.0) mmol/L ABG Hemoglobin 14.2 (11.7-17.4) g/dL ABG Carboxyhemoglobin 1.6 H (0.5-1.5) % POC ABG HHb (Measured) 0 (0-5) % ABG Methemoglobin 1.2 (0.0-3.0) % ABG O2 Capacity 19.6 (16-24) mL/dl Hgb O2 Saturation 97.3 (95.0-98.0) % FiO2 35.0 % Sodium 145 (132-148) mmol/L Potassium 3.2 L (3.6-5.0) mmol/L Chloride 108 H (98-107) mmol/L Carbon Dioxide 31 (21-33) mmol/L Anion Gap 9 L (10-20) BUN 17 (7-21) mg/dL Creatinine 0.4 L (0.7-1.2) mg/dl Est GFR ( Amer) > 60 Est GFR (Non-Af Amer) > 60 POC Glucose (mg/dL) 130 H (65-110) mg/dL Random Glucose 217 H (70-110) mg/dL Calcium 7.6 L (8.4-10.5) mg/dL Magnesium 2.0 (1.7-2.2) mg/dL Total Bilirubin 0.2 (0.2-1.3) mg/dL Direct Bilirubin 0.1 (0.0-0.4) mg/dL AST 17 (14-36) U/L ALT 41 (7-56) U/L Alkaline Phosphatase 55 (38-126) U/L Total Protein 4.7 L (5.8-8.3) g/dL Albumin 2.3 L (3.0-4.8) g/dL Globulin 2.4 gm/dL Albumin/Globulin Ratio 1.0 L (1.1-1.8) 12/28/17 12/28/17 12/28/17 Range/Units 05:45 05:43 00:23 WBC 9.0 (4.5-11.0) 10^3/ul RBC 3.57 (3.5-6.1) 10^6/uL Hgb 10.3 L (12.0-16.0) g/dL Hct 31.8 L (36.0-48.0) % MCV 89.1 (80.0-105.0) fl MCH 28.9 (25.0-35.0) pg MCHC 32.4 (31.0-37.0) g/dl RDW 14.4 (11.5-14.5) % Plt Count 145 (120.0-450.0) 10^3/uL MPV 11.5 H (7.0-11.0) fl Gran % 85.8 H (50.0-68.0) % Lymph % (Auto) 10.0 L (22.0-35.0) % Trigg % (Auto) 4.2 (1.0-6.0) % Eos % (Auto) 0.0 L (1.5-5.0) % Baso % (Auto) 0.0 (0.0-3.0) % Gran # 7.71 H (1.4-6.5) Lymph # (Auto) 0.9 L (1.2-3.4) Trigg # (Auto) 0.4 (0.1-0.6) Eos # (Auto) 0.0 (0.0-0.7) Baso # (Auto) 0.00 (0.0-2.0) K/mm3 pCO2 (35-45) mm/Hg pO2 (80-100) mm/Hg HCO3 (21-28) mmol/L ABG pH (7.35-7.45) ABG Total CO2 (22-28) mmol.L ABG O2 Saturation (95-98) % ABG O2 Content (15-23) ML/dl ABG Base Excess (-2.0-3.0) mmol/L ABG Hemoglobin (11.7-17.4) g/dL ABG Carboxyhemoglobin (0.5-1.5) % POC ABG HHb (Measured) (0-5) % ABG Methemoglobin (0.0-3.0) % ABG O2 Capacity (16-24) mL/dl Hgb O2 Saturation (95.0-98.0) % FiO2 % Sodium (132-148) mmol/L Potassium (3.6-5.0) mmol/L Chloride (98-107) mmol/L Carbon Dioxide (21-33) mmol/L Anion Gap (10-20) BUN (7-21) mg/dL Creatinine (0.7-1.2) mg/dl Est GFR ( Amer) Est GFR (Non-Af Amer) POC Glucose (mg/dL) 185 H 168 H (65-110) mg/dL Random Glucose (70-110) mg/dL Calcium (8.4-10.5) mg/dL Magnesium (1.7-2.2) mg/dL Total Bilirubin (0.2-1.3) mg/dL Direct Bilirubin (0.0-0.4) mg/dL AST (14-36) U/L ALT (7-56) U/L Alkaline Phosphatase (38-126) U/L Total Protein (5.8-8.3) g/dL Albumin (3.0-4.8) g/dL Globulin gm/dL Albumin/Globulin Ratio (1.1-1.8) /04/07 Range/Units 18:20 WBC (4.5-11.0) 10^3/ul RBC (3.5-6.1) 10^6/uL Hgb (12.0-16.0) g/dL Hct (36.0-48.0) % MCV (80.0-105.0) fl MCH (25.0-35.0) pg MCHC (31.0-37.0) g/dl RDW (11.5-14.5) % Plt Count (120.0-450.0) 10^3/uL MPV (7.0-11.0) fl Gran % (50.0-68.0) % Lymph % (Auto) (22.0-35.0) % Trigg % (Auto) (1.0-6.0) % Eos % (Auto) (1.5-5.0) % Baso % (Auto) (0.0-3.0) % Gran # (1.4-6.5) Lymph # (Auto) (1.2-3.4) Trigg # (Auto) (0.1-0.6) Eos # (Auto) (0.0-0.7) Baso # (Auto) (0.0-2.0) K/mm3 pCO2 (35-45) mm/Hg pO2 (80-100) mm/Hg HCO3 (21-28) mmol/L ABG pH (7.35-7.45) ABG Total CO2 (22-28) mmol.L ABG O2 Saturation (95-98) % ABG O2 Content (15-23) ML/dl ABG Base Excess (-2.0-3.0) mmol/L ABG Hemoglobin (11.7-17.4) g/dL ABG Carboxyhemoglobin (0.5-1.5) % POC ABG HHb (Measured) (0-5) % ABG Methemoglobin (0.0-3.0) % ABG O2 Capacity (16-24) mL/dl Hgb O2 Saturation (95.0-98.0) % FiO2 % Sodium (132-148) mmol/L Potassium (3.6-5.0) mmol/L Chloride (98-107) mmol/L Carbon Dioxide (21-33) mmol/L Anion Gap (10-20) BUN (7-21) mg/dL Creatinine (0.7-1.2) mg/dl Est GFR ( Amer) Est GFR (Non-Af Amer) POC Glucose (mg/dL) 151 H (65-110) mg/dL Random Glucose (70-110) mg/dL Calcium (8.4-10.5) mg/dL Magnesium (1.7-2.2) mg/dL Total Bilirubin (0.2-1.3) mg/dL Direct Bilirubin (0.0-0.4) mg/dL AST (14-36) U/L ALT (7-56) U/L Alkaline Phosphatase (38-126) U/L Total Protein (5.8-8.3) g/dL Albumin (3.0-4.8) g/dL Globulin gm/dL Albumin/Globulin Ratio (1.1-1.8) Laboratory Results - last 24 hr 12/27/17 12/28/17 12/28/17 18:20 00:23 05:43 WBC RBC Hgb Hct MCV MCH MCHC RDW Plt Count MPV Gran % Lymph % (Auto) Trigg % (Auto) Eos % (Auto) Baso % (Auto) Gran # Lymph # (Auto) Trigg # (Auto) Eos # (Auto) Baso # (Auto) pCO2 pO2 HCO3 ABG pH ABG Total CO2 ABG O2 Saturation ABG O2 Content ABG Base Excess ABG Hemoglobin ABG Carboxyhemoglobin POC ABG HHb (Measured) ABG Methemoglobin ABG O2 Capacity Hgb O2 Saturation FiO2 Sodium Potassium Chloride Carbon Dioxide Anion Gap BUN Creatinine Est GFR ( Amer) Est GFR (Non-Af Amer) POC Glucose (mg/dL) 151 H 168 H 185 H Random Glucose Calcium Magnesium Total Bilirubin Direct Bilirubin AST ALT Alkaline Phosphatase Total Protein Albumin Globulin Albumin/Globulin Ratio 12/28/17 12/28/17 12/28/17 05:45 05:45 06:00 WBC 9.0 RBC 3.57 Hgb 10.3 L Hct 31.8 L MCV 89.1 MCH 28.9 MCHC 32.4 RDW 14.4 Plt Count 145 MPV 11.5 H Gran % 85.8 H Lymph % (Auto) 10.0 L Trigg % (Auto) 4.2 Eos % (Auto) 0.0 L Baso % (Auto) 0.0 Gran # 7.71 H Lymph # (Auto) 0.9 L Trigg # (Auto) 0.4 Eos # (Auto) 0.0 Baso # (Auto) 0.00 pCO2 48 H pO2 140.0 H HCO3 29.1 H ABG pH 7.39 ABG Total CO2 30.6 H ABG O2 Saturation 100.0 H ABG O2 Content 19.6 ABG Base Excess 3.2 H ABG Hemoglobin 14.2 ABG Carboxyhemoglobin 1.6 H POC ABG HHb (Measured) 0 ABG Methemoglobin 1.2 ABG O2 Capacity 19.6 Hgb O2 Saturation 97.3 FiO2 35.0 Sodium 145 Potassium 3.2 L Chloride 108 H Carbon Dioxide 31 Anion Gap 9 L BUN 17 Creatinine 0.4 L Est GFR ( Amer) > 60 Est GFR (Non-Af Amer) > 60 POC Glucose (mg/dL) Random Glucose 217 H Calcium 7.6 L Magnesium 2.0 Total Bilirubin 0.2 Direct Bilirubin 0.1 AST 17 ALT 41 Alkaline Phosphatase 55 Total Protein 4.7 L Albumin 2.3 L Globulin 2.4 Albumin/Globulin Ratio 1.0 L 12/28/17 12:11 WBC RBC Hgb Hct MCV MCH MCHC RDW Plt Count MPV Gran % Lymph % (Auto) Trigg % (Auto) Eos % (Auto) Baso % (Auto) Gran # Lymph # (Auto) Trigg # (Auto) Eos # (Auto) Baso # (Auto) pCO2 pO2 HCO3 ABG pH ABG Total CO2 ABG O2 Saturation ABG O2 Content ABG Base Excess ABG Hemoglobin ABG Carboxyhemoglobin POC ABG HHb (Measured) ABG Methemoglobin ABG O2 Capacity Hgb O2 Saturation FiO2 Sodium Potassium Chloride Carbon Dioxide Anion Gap BUN Creatinine Est GFR ( Amer) Est GFR (Non-Af Amer) POC Glucose (mg/dL) 130 H Random Glucose Calcium Magnesium Total Bilirubin Direct Bilirubin AST ALT Alkaline Phosphatase Total Protein Albumin Globulin Albumin/Globulin Ratio Critical Care Progress Note - Nutrition Nutrition: Nutrition Category Date Time Status NPO Diet [DIET] Diets 12/23/17 Lunch Ordered Assessment/Plan - Assessment and Plan (Free Text) Plan: Patient seen and examined on rounds with resident, agree with note with following additions/exceptions: Patient is 72yo female with PMhx COPD (with prior intubations for exacerbations) , asthma, HTN, and pulmonary HTN, a/w hypercapnic resp failure. Currently afebrile, HD stable, comfortable in NAD, intubated, doing well ABG with chronic resp acisosis, compensated, normalized pH. Patient reintubated 3x on this admission, awaiting tracheostomy on Friday/ with ENT Afebrile, HD stable, comfortable COPD exacerbation Resp failure Pulm HTN Recommend: - supp o2, goal sat 90%, daily ABGs/CXR - pulmonary follow up - taper SoluCortef - abx as per ID - Start Precedex - Duonebs PRN - BP control - GI ppx - DVT ppx - monitor in MICU - awaiting tracheostomy
[2017-12-28 07:01] LABS: ALBUMIN 2.3 g/dL (3.0-4.8); ALT/SGPT 41 U/L (7-56); AST/SGOT 17 U/L (14-36); BILIRUBIN,DIRECT 0.1 mg/dL (0.0-0.4); BLOOD UREA NITROGEN 17 mg/dL (7-21); CALCIUM 7.6 mg/dL (8.4-10.5); GFR AFRICAN-AMERICAN > 60; GFR NON-AFRICAN AMERICAN > 60
[2017-12-28] MEDS: Budesonide 0.5 mg/2 ml Inhal Susp UD IH SCH ×2 (07:10→20:52)
--- NOTE | 2017-12-28 08:35 | RAD ---
HISTORY: f/u COMPARISON: 12/27/2017 FINDINGS: LUNGS: Minimal patchy infiltrate at the right lung base. Infiltrate at left lung base obscures the diaphragm. Central lines and tubes unchanged PLEURA: No significant pleural effusion identified, no pneumothorax apparent. CARDIOVASCULAR: Mild cardiomegaly OSSEOUS STRUCTURES: No significant abnormalities. VISUALIZED UPPER ABDOMEN: Normal. OTHER FINDINGS: None. IMPRESSION: Minimal patchy infiltrate at the right lung base. Infiltrate at left lung base obscures the diaphragm. Central lines and tubes unchanged
[2017-12-28] MEDS: POLYETHYLENE GLYCOL 3350 17 GM/Dose PACKET PO SCH (09:48)
[2017-12-28] MEDS: Vancomycin 1gm in NS 250ml 1 GM/250 ML BAG IVPB SCH ×2 (09:48→22:50)
[2017-12-28] MEDS: Enoxaparin 40 mg Syringe SC SCH (09:49)
--- NOTE | 2017-12-28 09:50 | PN ---
DATE: 12/28/2017 PULMONARY PROGRESS NOTE SUBJECTIVE: The patient was seen and examined in the Intensive Care Unit on a ventilator. I have discussed the case with the ICU team as well as the patient's daughter. The patient is receiving inhalation treatments with DuoNeb. She is on antibiotics of doxycycline and cefepime. She also is on vancomycin and budesonide was added to inhalation therapy. PHYSICAL EXAMINATION: HEAD: Normocephalic and atraumatic. ENT: Orally intubated. CARDIOVASCULAR: S1, S2. No S3. Irregular. PULMONARY: Diminished breath sounds bilaterally with no wheezing. GASTROINTESTINAL: Soft, nontender. No organomegaly. EXTREMITIES: No pedal edema. : WITHIN normal limits SKIN: No acute skin rash. NEUROLOGIC: Limited at the present time due to sedation. ASSESSMENT: 1. Acute respiratory failure, recurrent. 2. Exacerbation of chronic obstructive pulmonary disease. 3. Resolving left lower lobe pneumonia. 4. Ventilator dependency. 5. Sepsis syndrome. PLAN: The patient is on BiPAP currently and tolerating well. The family would like to give the patient one more attempt of extubation prior to deciding on tracheostomy. Her condition remains critical, although improved this morning. I have reviewed her chest x-ray. The left lower lobe infiltrate has basically resolved, so the pneumonia has improved and COPD is improving as well. We will continue with attempt to wean off the ventilator. All the data was reviewed and discussed with ICU team. Remy Peacock MD MTDBrandy
[2017-12-28] MEDS ORDERED: Insulin Reg-MEDIUM-Coverage SC SCH (12:00)
--- NOTE | 2017-12-28 12:30 | CP.PCM.PN ---
Subjective - Date & Time of Evaluation Date of Evaluation: 12/28/17 Time of Evaluation: 09:15 - Subjective Subjective: No fevers, still on the ventilator, sedated but easily arousable. Objective - Vital Signs/Intake and Output Vital Signs (last 24 hours): Temp Pulse Resp BP Pulse Ox 99.1 F 79 18 90/46 L 100 12/28/17 04:00 12/28/17 06:00 12/28/17 04:00 12/28/17 04:00 12/28/17 00:00 Intake and Output: 12/28/17 12/28/17 06:59 18:59 Intake Total 495 Output Total 400 Balance 95 - Medications Medications: Current Medications Acetaminophen (Tylenol 650 Mg Supp) 650 mg RC Q6H PRN PRN Reason: TEMP>=99.5F Last Admin: 12/17/17 08:30 Dose: 650 mg Amiodarone HCl (Cordarone) 400 mg PO BID [facility] Last Admin: 12/27/17 18:12 Dose: Not Given Aspirin (Aspirin) 325 mg PO DAILY [facility] Last Admin: 12/27/17 09:58 Dose: 325 mg Atorvastatin Calcium (Lipitor) 10 mg PO DIN [facility] Last Admin: 12/27/17 18:11 Dose: 10 mg Budesonide (Pulmicort Respules) 1 mg IH [id number] [facility] Last Admin: 12/28/17 07:10 Dose: 0.5 mg Doxycycline Hyclate (Doryx) 100 mg PO Q12 [facility] Last Admin: 12/27/17 21:21 Dose: 100 mg Enoxaparin Sodium (Lovenox) 40 mg SC DAILY [facility] PRN Reason: Protocol Last Admin: 12/27/17 09:58 Dose: 40 mg Ergocalciferol (Drisdol 50,000 Intl Units Cap) 1 cap PO Q7D [facility] Last Admin: 12/27/17 10:03 Dose: Not Given Hydralazine HCl (Apresoline) 10 mg IVP Q6 PRN PRN Reason: Systolic Blood Pressure Last Admin: 12/23/17 14:30 Dose: 10 mg Hydrocortisone Sodium Succinate (Solu-Cortef) 25 mg IVP Q12H [facility] Last Admin: 12/27/17 21:17 Dose: 25 mg Vancomycin HCl (Vancomycin 1gm) 1 gm in 250 mls @ 167 mls/hr IVPB Q12 [facility] PRN Reason: Protocol Last Admin: 12/27/17 21:18 Dose: 167 mls/hr Cefepime HCl (Maxipime 2gm) 2 gm in 100 mls @ 100 mls/hr IVPB Q8 [facility] PRN Reason: Protocol Stop: 12/29/17 09:16 Last Admin: 12/28/17 05:10 Dose: 100 mls/hr Propofol (Diprivan) 1,000 mg in 100 mls @ 2.252 mls/hr IV .Q24H PRN; Protocol; 5 MCG/KG/MIN PRN Reason: TITRATE PER MD ORDER Last Admin: 12/28/17 03:19 Dose: 22.2 mcg/kg/min, 10 mls/hr Ipratropium Ralph (Atrovent) 0.5 mg IH [id number] [facility] Last Admin: 12/28/17 07:10 Dose: 0.5 mg Ipratropium Ralph (Atrovent) 0.5 mg IH Q2H PRN PRN Reason: Shortness of Breath Levalbuterol HCl (Xopenex) 0.63 mg IH Q2 PRN PRN Reason: Shortness of Breath Levalbuterol HCl (Xopenex) 0.63 mg IH 0200,0800,1400,2000 [facility] Last Admin: 12/28/17 01:29 Dose: 0.63 mg Ondansetron HCl (Zofran Inj) 4 mg IVP Q4H PRN PRN Reason: Nausea/Vomiting Pantoprazole Sodium (Protonix Inj) 40 mg IVP Q12 [facility] Last Admin: 12/27/17 21:16 Dose: 40 mg Polyethylene Glycol (Miralax) 17 gm PO DAILY [facility] Last Admin: 12/27/17 09:57 Dose: 17 gm - Labs Labs: 12/28/17 05:45 12/28/17 05:45 PT 13.0 SECONDS (9.4-12.5) H 12/25/17 15:24 INR 1.14 (0.93-1.08) H 12/25/17 15:24 APTT 32.0 Seconds (25.1-36.5) 12/25/17 15:24 - Constitutional Appears: Chronically Ill - Head Exam Head Exam: NORMAL INSPECTION - ENT Exam Additional comments: ET tube in place - Respiratory Exam Respiratory Exam: Decreased Breath Sounds - Cardiovascular Exam Cardiovascular Exam: +S1, +S2 - GI/Abdominal Exam GI & Abdominal Exam: Soft. absent: Tenderness Assessment and Plan - Assessment and Plan (Free Text) Plan: Assessment Severe sepsis with ventilator-dependent respiratory failure due to left sided hospital-acquired pneumonia in this patient with acute COPD exacerbation COPD diastolic chronic CHF S/P hysterectomy obesity with BMI 31 Plan continue Vancomycin, Cefepime and Doxycycline day 6 to complete 4-7 days and will follow up blood and sputum cx; reviewed CT chest which shows left base patchy infiltrates; also reviewed Pulmonary evaluation and recommendations discussed with ICU team today will continue to monitor clinically
[2017-12-29] MEDS: Levalbuterol 0.63 MG/3 ML Inhal Soln UD IH SCH ×4 (03:10→20:51)
[2017-12-29] MEDS: Ipratropium 0.02% Inhal Soln (0.5 mg/2.5 ml) UD IH SCH ×4 (03:13→20:50)
[2017-12-29 05:46] LABS: ARTERIAL BLOOD GAS HEMOGLOBIN 10.7 g/dL (11.7-17.4); ARTERIAL BLOOD GAS O2 CAPACITY 14.7 mL/dl (16-24); ARTERIAL BLOOD GAS O2 CONTENT 14.7 ML/dl (15-23); ARTERIAL BLOOD GAS O2 SAT 99.7 % (95-98); ARTERIAL BLOOD GAS PCO2 52 mm/Hg (35-45); ARTERIAL BLOOD GAS PH 7.46 (7.35-7.45); ARTERIAL BLOOD GAS TCO2 38.6 mmol.L (22-28)
[2017-12-29] MEDS: Cefepime IV 2 gm in NS 2 GM/100 ML BAG IVPB SCH (06:37)
[2017-12-29 06:54] LABS: EOS # 0.1 (0.0-0.7); EOS % 0.6 % (1.5-5.0); GRAN # 8.5 (1.4-6.5); GRAN % 79.3 % (50.0-68.0); HEMOGLOBIN 10.5 g/dL (12.0-16.0); LYMPH # 1.4 (1.2-3.4); MEAN CELL VOLUME 90.2 fl (80.0-105.0); MEAN CORPUSCULAR HEMOGLOBIN 28.6 pg (25.0-35.0); MEAN CORPUSCULAR HGB CONC 31.7 g/dl (31.0-37.0); MONO # 0.8 (0.1-0.6); MONO % 7.1 % (1.0-6.0); RBC 3.67 10^6/uL (3.5-6.1); RED CELL DISTRIBUTION WIDTH 14.7 % (11.5-14.5); WHITE BLOOD COUNT 10.7 10^3/ul (4.5-11.0)
[2017-12-29 07:00] LABS: ALB/GLOB RATIO 1.2 (1.1-1.8); ALBUMIN 2.8 g/dL (3.0-4.8); ALT/SGPT 40 U/L (7-56); AST/SGOT 20 U/L (14-36); BLOOD UREA NITROGEN 12 mg/dL (7-21); CALCIUM 7.8 mg/dL (8.4-10.5); GFR AFRICAN-AMERICAN > 60; GFR NON-AFRICAN AMERICAN > 60
[2017-12-29 07:13] LABS: INR 1.06 (0.93-1.08); PARTIAL THROMBOPLASTIN TIME 27.8 Seconds (25.1-36.5); PROTHROMBIN TIME 12.2 SECONDS (9.4-12.5)
[2017-12-29] MEDS: Budesonide 0.5 mg/2 ml Inhal Susp UD IH SCH ×2 (07:40→20:50)
--- NOTE | 2017-12-29 08:14 | PN ---
DATE: 12/29/2017(650am-740am) PULMONARY NOTE SUBJECTIVE: The patient remains on the ventilator. She is awake and alert this morning. She is currently on CPAP and pressure support. OBJECTIVE: VITAL SIGNS: Temperature is 98.2, pulse 77, respirations 16/18, blood pressure 104/63. Oxygen saturation on the ventilator is 100%. End-tidal CO2 - 49-50. HEENT: Normocephalic, atraumatic. No JVD. CARDIOVASCULAR: Systolic ejection murmur at the lower left sternal border. No S3 gallop. LUNGS: Decreased breath sounds at the bases. Very minimal/less rhonchi. No wheezing. EXTREMITIES: No clubbing, cyanosis or edema. Calves are nontender to palpation. GI: Abdomen is soft, nontender and nondistended. Bowel sounds are positive. SKIN: No acute rash. NEUROLOGIC: Exam limited at the present time. PERTINENT LABORATORY DATA: Chest x-ray was done this morning and reviewed. Today's film is a poor rotated film. It is not significantly changed from the previous films. Arterial blood gas was done on CPAP and pressure support. Results are: The pH 7.46, pCO2 of 52, pO2 of 108. IMPRESSION: 1. Recurrent respiratory failure. 2. Left lower lobe pneumonia. 3. Sepsis syndrome. 4. Hypotension - resolved - off pressors. 5. Mild anemia. 6. Positive troponin. PLAN: The patient remains intubated. She remains on CPAP and pressure support. She is awake and alert. I did discuss the case with the night nurse at length. The night nurse stated that the patient had an uneventful night. I did review the chest x-ray as above. Today's chest x-ray is a poor rotated film - but does not show any new or significant change from the previous films. I have also reviewed the arterial blood gas. CO2 retention is noted - but with normal pH. I did review the note by Dr. Modi (ICU). I have also discussed the case with my partner (Dr. Peacock). The CPAP and pressure support are being weaned. There is still a question of whether the patient will need a tracheostomy or not. On physical exam, there is certainly less bronchospasm noted. I will continue with the current nebulizer treatments and inhaled steroids for now. I would also continue with the antibiotic coverage - as per Infectious Disease. Temperatures have resolved. The leukocytosis has also resolved. The clinical status of the patient is significantly improved - compared to the initial presentation. I will discuss the above with the entire ICU team in the next few moments. I will also discuss the above with the attending physician later this morning. Edin Aguila MD MTDD
[2017-12-29] MEDS ORDERED: Potassium Chloride 40 mEq/30 ml LIQ UD PO STA (08:50)
--- NOTE | 2017-12-29 09:11 | PN ---
DATE: 12/28/2017 SUBJECTIVE: The patient is in CCU bed 3. The patient is still intubated on ventilator. The patient has been sedated with IV propofol. ET tube, NG tube in place. Overnight nurses' notes were reviewed. PHYSICAL EXAMINATION: VITAL SIGNS: T-max 99.2; telemetry shows sinus rhythm; blood pressure 124/92, 129/76, 99/62; O2 sat is 94-100%. HEENT: Head examination normocephalic, atraumatic. HEENT examination shows pinkish pale conjunctivae, anicteric sclerae. No oropharyngeal lesion. Positive NG tube. Positive ET tube noted. NECK: No neck rigidity. CHEST: Kyphosis. LUNGS: Shows positive rhonchi, bilateral lung bauer. Questionable creps at the bases. CARDIOVASCULAR: S1 and S2. Regular rhythm. Positive systolic murmur, left sternal border, right second intercostal space, left second intercostal space. ABDOMEN: Soft. Positive bowel sounds. GENITALIA: Female. EXTREMITIES: Positive SCDs noted. MUSCULOSKELETAL: Shows BMI of 32. NEUROLOGICAL: Neuro examination is limited. Cranial nerves II through XII limited. Gait examination not tested. The patient is bedridden. DIAGNOSTICS: On 12/28/2017, WBC 9, hemoglobin and hematocrit 10.3 and 32, platelets 145, granulocytes 86% segs. Sodium 145, potassium 3.2, chloride 108, CO2 of 31, BUN 17, creatinine 0.4, glucose 217, calcium 7.6, magnesium 2, total protein 4.7, albumin 2.3. Chest x-ray show bibasilar pneumonia and infiltrate. IMPRESSION AND PLAN: 1. Severe sepsis with ventilator-dependent respiratory failure and bilateral multilobar healthcare-associated versus ventilator-associated bilateral pneumonia. 2. Low-grade fever. 3. Transient hypotension. 4. Normocytic anemia. 5. Hypokalemia. 6. Granulocytosis. 7. Hypocalcemia. 8. Mild to moderate protein malnutrition and mild to moderate hypoalbuminemia. 9. Bilateral multilobar healthcare-associated versus ventilator-associated pneumonia. 1. Acute relapsing recurrent hypercarbic hypoxic respiratory failure with respiratory acidosis and CO2 narcosis with multiple reintubation. 2. Hypotension. 3. Probably asymptomatic nonsustained ventricular tachycardia. 4. Ventilator-dependent respiratory failure. 5. Multilobar bilateral healthcare-associated versus ventilator-associated aspiration multilobar bilateral pneumonia and infiltrate and pleural effusion. 6. A 0.3 cm right upper lobe nodule. 7. History of hypertension. 8. Status post uncontrolled hypertension. 9. Hypothyroidism. 10. History of dyslipidemia. 11. History of poor compliance. 12. Questionable [id number] myocardial function with elevated troponin. 13. Status post cardiac catheterization. 14. Nonobstructive coronary artery disease. 1. Acute recurrent ventilator dependent respiratory failure with respiratory acidosis, hypercapnic hypercarbic respiratory failure. 2. Multilobar bilateral pneumonia, healthcare-associated pneumonia versus ventilator-associated pneumonia. 3. Transient hypotension. 4. Ventilator-dependent respiratory failure. 5. Leukopenia and leukocytosis. 6. Granulocytosis. 7. Normocytic anemia. 8. Transaminitis. 9. Hypertensive cardiovascular disease with left ventricular hypertrophy. 10. Pleural effusion. 11. Pulmonary vascular congestion and congestive heart failure. 1. Recurrent relapsing acute ventilator-dependent hypoxic hypercarbic respiratory failure with severe respiratory acidosis. 2. Questionable non-ST elevation myocardial infarction with elevated troponin. 3. Status post cardiac catheterization. 4. Left ventricle ejection fraction of 60%. 5. 60 to 70% stenosis of the proximal portion of the second diagonal vessel. 6. Bibasilar bilateral multilobar possible aspiration versus ventilator-dependent pneumonia and pleural effusion. 7. Cardiomegaly. 8. Mild pulmonary vascular congestion. 9. Acute exacerbation of chronic obstructive pulmonary disease with reintubation secondary to recurrent relapsing acute hypoxic, hypercapnic respiratory failure with CO2 narcosis and hypercapnia. 10. Possible non-ST elevation myocardial infarction. 11. Severe sepsis with ventilator-dependent respiratory failure and bibasilar bilateral multilobar healthcare-associated versus ventilator-associated pneumonia with acute exacerbation of chronic obstructive pulmonary disease. 12. Possible diastolic congestive heart failure. 13. Low-grade fever. 14. Tachycardia. 15. Tachypnea. 16. Leukocytosis with leukopenia and normocytic anemia. 17. Granulocytosis. 18. Hypokalemia. 19. Hypomagnesemia. 20. Hypocalcemia. 21. Mild oropharyngeal dysphagia with [id number] risk for aspiration due to minimal fatigue, minimal oral residue, missing teeth, and multiple swallows needed per single bolus. 22. Hypothyroidism. 23. History of hypertension. 24. Hypovitaminosis D. 25. Hyperlipidemia. 26. Inotropic, pressor-dependent hypotension. 27. Toxic metabolic encephalopathy secondary to hypercarbia, hypoxemia, and respiratory acidosis. 1. Recurrent acute relapsing hypoxic hypercarbic hypercapnic respiratory failure, ventilator requiring and ventilator-dependent. 2. Ventilator-dependent and ventilator-requiring hypoxic and hypercarbic respiratory failure with carbon dioxide narcosis and hypoxemia and confusion and obtundation. 3. Hypotension. 4. Transient uncontrolled hypertension and hypertensive urgency. 5. Leukocytosis with granulocytosis. 6. Normocytic anemia. 7. Severe respiratory acidosis. 8. Ventilator-dependent respiratory failure. 9. Hypokalemia. 10. Questionable acute [id number]-[id number] myocardial infarction with elevated troponin. 11. Transaminitis. 12. Healthcare-associated, ventilator-dependent multilobar bilateral pneumonia with volume loss and minimal right apical scarring. 13. Right upper lobe nodule. 14. Cardiomegaly. 15. Thyromegaly with thyroid calcification. 16. Degenerative joint disease of the spine. 17. T11-T12 subacute compression deformity. 18. Left lower chest and left upper anterior abdominal wall lipoma. 19. Adrenal gland hypertrophy. 20. Feeding dysfunction. 21. Status post left internal jugular triple-lumen catheter central line placement. 22. Questionable lateral ischemic changes on the EKG with left ventricular hypertrophy. 23. Severe sepsis with ventilator-dependent respiratory failure secondary to bilateral multilobar healthcare-associated versus ventilator-dependent pneumonia. 24. Acute exacerbation of chronic obstructive pulmonary disease. 25. Hypovitaminosis D. 26. Dyslipidemia. 27. History of constipation. 1. Questionable and possible steroid versus ICU psychosis with episodic confusion. 2. Acute exacerbation of chronic obstructive pulmonary disease. 3. Status post ventilator-dependent acute hypoxic hypercarbic respiratory failure. 4. Severe respiratory acidosis. 5. Uncontrolled hypertension. 6. Transient tachycardia. 7. Tachypnea. 8. Hypoxemia. 9. Transient leukopenia. 10. Granulocytosis. 11. Severe respiratory acidosis with hypercarbia, hypercapnia and CO2 narcosis with hypoxemia. 12. Refractory acute exacerbation of [id number]-[id number] hypoxic hypercarbic respiratory failure with refractory slow resolving respiratory acidosis. 13. Metabolic alkalosis. 14. Steroid-induced hyperglycemia. 15. Transaminitis. 16. Hypovitaminosis D. 17. Acute exacerbation of chronic obstructive pulmonary disease with hyperinflation. 18. Questionable and possible ICU versus steroid psychosis. 1. Status post ventilator-dependent respiratory failure secondary to acute hypoxic hypercarbic respiratory failure with respiratory acidosis. 2. Acute exacerbation of chronic obstructive pulmonary disease. 3. Recurrent [id number] hypoxic hypercarbic respiratory failure with persistent hypercarbia and hypoxemia and respiratory acidosis. 4. Tachycardia. 5. Uncontrolled hypertension. 6. Tachypnea. 7. Hypoxemia. 8. Leukopenia. 9. Granulocytosis. 10. Persistent recurrent frosq-dd-hgvnuex and acute recurrent hypoxic hypercarbic respiratory failure with respiratory acidosis. 11. Metabolic alkalosis. 12. Hyperglycemia. 13. Transaminitis. 14. Hypovitaminosis D. 15. Non-hemolyzed hyperkalemia. 16. Constipation. 17. Hypothyroidism. 18. Mild oropharyngeal dysphagia with yil-py-iukxaidf aspiration risk secondary to minimal fatigue, minimal oral residue and missing teeth. 1. Acute exacerbation of chronic obstructive pulmonary disease. 2. Relapsing recurrent hypercarbia and respiratory acidosis. 3. Mild normocytic anemia with granulocytosis. 4. Non-hemolyzed hyperkalemia. 5. Metabolic alkalosis with rising pCO2. 6. Hyperglycemia. 7. Transaminitis. 8. Hypovitaminosis D. 9. Chronic obstructive pulmonary disease with pulmonary hyperinflation. 10. Left ventricular hypertrophy with repolarization abnormalities and possible anterior ischemic changes on the EKG. 11. Status post ventilator dependent. 12. Acute hypoxic hypercarbic respiratory failure with respiratory acidosis. 13. Acute exacerbation of chronic obstructive pulmonary disease with acute hypoxic respiratory failure with hypercapnia. 14. Acute exacerbation of chronic obstructive pulmonary disease with acute ventilator respiratory failure with hypercapnia. 15. Hypertensive cardiovascular disease with ejection fraction of 68%. 16. Concentric left ventricular hypertrophy with grade I abnormal relaxation patterns. 17. Moderately sclerotic aortic valve. 18. Moderate mitral regurgitation with moderately thickened mitral valve. 19. Trace tricuspid regurgitation. 1. Acute ventilator-dependent acute hypercarbic, hypoxemic respiratory failure and carbon dioxide narcosis. 2. Hypertension. 3. Persistent recurrent, refractor hypercarbia and mild respiratory acidosis. 4. Tachypnea. 5. Hypertension. 6. Mild normocytic anemia. 7. Granulocytosis. 8. Mild non-hemolyzed hyperkalemia. 9. Prerenal kidney injury. 10. Hyperglycemia. 11. Transaminitis. 12. Hypovitaminosis D. 13. Left ventricular ejection fraction of 68% with concentric left ventricular hypertrophy and grade 1 abnormal relaxation pattern. 14. Moderately dilated left atrium. 15. Moderately sclerotic aortic valve. 16. Moderately thickened mitral valve with moderate mitral regurgitation. 17. Hyperlipidemia. 18. Constipation. 1. Acute hypercarbic hypoxic respiratory failure with respiratory acidosis and hypercarbia and carbon dioxide narcosis. 2. Acute exacerbation of chronic obstructive pulmonary disease. 3. Acute ventilator-dependent hypercarbic hypercapnic hypoxic respiratory failure with severe respiratory acidosis. 4. Bronchospasm. 5. Severe acute exacerbation of chronic obstructive pulmonary disease. 6. Tachycardia. 7. Tachypnea. 8. Fever. 9. Febrile illness. 10. Questionable systemic inflammatory response syndrome. 11. Mild normocytic anemia. 12. Granulocytosis. 13. Recurrent hypercarbia and hypercapnia with mild respiratory acidosis and recurrent respiratory acidosis. 14. Prerenal kidney injury. 15. Transaminitis. 16. Hypovitaminosis D. 17. History of hypothyroidism. 18. Left ventricular ejection fraction of 68%. 19. Moderate concentric left ventricular hypertrophy. 20. Grade 1 abnormal relaxation pattern. 21. Moderately dilated left atrium. 22. Moderately sclerotic aortic valve. 23. Moderately thickened mitral valve with moderate mitral regurgitation. 24. Mild oropharyngeal dysphagia with low to moderate risk for aspiration due to minimal fatigue, minimal oral residue, missing teeth and multiple swallows. 25. History of hyperlipidemia. 1. Status post acute ventilator dependent hypercarbic hypoxic respiratory failure with carbon dioxide narcosis and respiratory acidosis. 2. Status post extubation. 3. Hypertension. 4. Mild normocytic anemia with granulocytosis. 5. Acute hypercarbic hypoxic ventilator-dependent respiratory failure, status post extubation with respiratory acidosis, hypercarbia and carbon dioxide narcosis. 6. Prerenal kidney injury. 7. Transaminitis. 8. Hypovitaminosis D. 9. Hypertensive cardiovascular disease with repolarization abnormalities. 10. Left ventricular ejection fraction of 68%. 11. Moderate concentric left ventricular hypertrophy with grade 1 abnormal relaxation pattern. 12. Moderately dilated left atrium. 13. Moderately sclerotic aortic valve. 14. Moderately thickened mitral valve with moderate mitral regurgitation. 15. Trace tricuspid regurgitation. 16. Carbon dioxide narcosis. 17. Acute exacerbation of severe chronic obstructive pulmonary disease. 18. History of hypothyroidism. 19. History of pulmonary hypertension. 20. High-grade fever of 101 degrees Fahrenheit. 21. Deconditioning. 22. Gait dysfunction. 23. History o hyperlipidemia. 24. History of constipation. 25. History of hypovitaminosis D. 1. Acute hypercarbic hypercapnic hypoxic ventilator-dependent respiratory failure with severe respiratory acidosis. 2. Resolving bronchospasm. 3. Fever of 100.8. 4. Mild normocytic anemia. 5. Granulocytosis. 6. Hypercarbia. 7. CO2 narcosis. 8. Transaminitis. 9. History of hypothyroidism. 10. Hypertensive cardiovascular disease with T-wave inversion I, aVL, V1 to V6. 11. Borderline hypokalemia. 1. Ventilator-dependent acute hypercarbic hypercapnic hypoxic respiratory failure with severe respiratory acidosis. 2. Bronchospasm. 3. Acute exacerbation of chronic obstructive pulmonary disease. 4. Normocytic anemia with granulocytosis. 5. Hypercarbia and hypercapnia. 6. Carbon dioxide narcosis. 7. Severe respiratory acidosis and hypoxemia. 8. Metabolic alkalosis. 9. Hyperglycemia. 10. Transaminitis. 11. Mild acute exacerbation of right-sided diastolic congestive heart failure with elevated BNP. 12. Indeterminate troponin. 13. Sinus tachycardia. 14. Left axis deviation. 15. Ventilator-dependent respiratory failure. 16. History of hypertension, hyperlipidemia, hypothyroidism, hypovitaminosis D. 17.Mild oropharyngeal dysphagia with [id number] risk for aspiration due to minimal fatigue, minimal oral residue, missing teeth and multiple swallows needed per single bolus Plan at this point, the patient is to be continued on IV antibiotics. The patient is to be continued on bronchodilator therapy. The patient is to be continued on hydralazine 10 mg IV every 6 p.r.n., aspirin 325 daily, Atrovent nebulizer treatment 4 times a day, amiodarone 400 mg twice a day, Diprivan drip, Drisdol 50,000 weekly, Lipitor 10 mg daily, Lovenox 40 mg subcu daily, Maxipime 2 g IV every 12, MiraLax 17 g daily, Protonix 40 mg IV daily, Pulmicort nebulizer 1 mg twice a day, Solu-Cortef decreased to 25 mg IV daily, Tylenol suppository p.o. every 6 p.r.n., vancomycin 1 g IV every 12, Xopenex nebulizer 0.63 mg 4 times a day and every 2 hours p.r.n., Zofran 4 mg IV every 4 p.r.n. At present, the patient is to be continued on above therapeutic intervention with close followup by Pulmonary, Infectious Disease, Critical Care, Cardiology and all subspecialty. Prognosis guarded to poor. Family aware. The patient is awaiting tracheostomy placement early coming week. Time spent in entire management more than 35 minutes. Dictated and electronically signed, not read. Garett Rodríguez MD [facility]
[2017-12-29] MEDS: Potassium Phosphate 15 MMOLE in Dextrose 5% In Water 250 ML IVPB SCH ×2 (09:25→16:14)
[2017-12-29] MEDS: Enoxaparin 40 mg Syringe SC SCH (09:34)
[2017-12-29] MEDS: Vancomycin 1gm in NS 250ml 1 GM/250 ML BAG IVPB SCH (09:35)
[2017-12-29] MEDS: POLYETHYLENE GLYCOL 3350 17 GM/Dose PACKET PO SCH (09:37)
--- NOTE | 2017-12-29 09:59 | RAD ---
HISTORY: f/u COMPARISON: 12/28/2017 FINDINGS: LUNGS: Infiltrate at the left lung base. Mild vascular congestion. Central lines and tubes unchanged PLEURA: No significant pleural effusion identified, no pneumothorax apparent. CARDIOVASCULAR: Normal. OSSEOUS STRUCTURES: No significant abnormalities. VISUALIZED UPPER ABDOMEN: Normal. OTHER FINDINGS: None. IMPRESSION: Infiltrate at the left lung base. Mild vascular congestion. Central lines and tubes unchanged
--- NOTE | 2017-12-29 11:07 | CP.PCM.PN ---
<Nu Sandoval - Last Filed: 12/29/17 13:37> Subjective - Date & Time of Evaluation Date of Evaluation: 12/29/17 Time of Evaluation: 11:05 - Subjective Subjective: Medicine Progress Note - Dr Rodríguez Service Patient seen and examined at bedside. Per nursing, no acute events overnight. Patient is intubated and off sedation. Currently on pressure support. Over the weekend, patient was re-intubated because the tube slid out when she was out of bed in chair. Patient is scheduled for trach tomorrow. ROS not obtained. Objective - Vital Signs/Intake and Output Vital Signs (last 24 hours): Temp Pulse Resp BP Pulse Ox 98.2 F 74 24 103/64 90 L 12/29/17 04:00 12/29/17 09:35 12/28/17 07:20 12/29/17 09:35 12/29/17 09:01 Intake and Output: 12/29/17 12/29/17 06:59 18:59 Intake Total 995 Output Total 350 Balance 645 - Medications Medications: Current Medications Acetaminophen (Tylenol 650 Mg Supp) 650 mg RC Q6H PRN PRN Reason: TEMP>=99.5F Last Admin: 12/17/17 08:30 Dose: 650 mg Amiodarone HCl (Cordarone) 200 mg PO Q12 [facility] Last Admin: 12/29/17 09:35 Dose: 200 mg Aspirin (Aspirin) 325 mg PO DAILY [facility] Last Admin: 12/29/17 09:37 Dose: 325 mg Atorvastatin Calcium (Lipitor) 10 mg PO DIN [facility] Last Admin: 12/28/17 17:23 Dose: 10 mg Budesonide (Pulmicort Respules) 1 mg IH [id number] [facility] Last Admin: 12/28/17 20:52 Dose: 1 mg Doxycycline Hyclate (Doryx) 100 mg PO Q12 [facility] Last Admin: 12/29/17 09:36 Dose: 100 mg Enoxaparin Sodium (Lovenox) 40 mg SC DAILY [facility] PRN Reason: Protocol Last Admin: 12/29/17 09:34 Dose: 40 mg Ergocalciferol (Drisdol 50,000 Intl Units Cap) 1 cap PO Q7D [facility] Last Admin: 12/27/17 10:03 Dose: Not Given Hydralazine HCl (Apresoline) 10 mg IVP Q6 PRN PRN Reason: Systolic Blood Pressure Last Admin: 12/23/17 14:30 Dose: 10 mg Hydrocortisone Sodium Succinate (Solu-Cortef) 25 mg IVP DAILY [facility] Last Admin: 12/29/17 09:34 Dose: 25 mg Propofol (Diprivan) 1,000 mg in 100 mls @ 2.252 mls/hr IV .Q24H PRN; Protocol; 5 MCG/KG/MIN PRN Reason: TITRATE PER MD ORDER Last Admin: 12/28/17 03:19 Dose: 22.2 mcg/kg/min, 10 mls/hr Potassium Phosphate 15 mmole/ (Dextrose) 255 mls @ 42.5 mls/hr IVPB Q6H [facility] Stop: 12/29/17 19:59 Last Admin: 12/29/17 09:25 Dose: 42.5 mls/hr Ipratropium [place] (Atrovent) 0.5 mg IH [id number] [facility] Last Admin: 12/29/17 07:40 Dose: 0.5 mg Ipratropium [place] (Atrovent) 0.5 mg IH Q2H PRN PRN Reason: Shortness of Breath Levalbuterol HCl (Xopenex) 0.63 mg IH Q2 PRN PRN Reason: Shortness of Breath Levalbuterol HCl (Xopenex) 0.63 mg IH 0200,0800,1400,2000 [facility] Last Admin: 12/29/17 07:40 Dose: 0.63 mg Ondansetron HCl (Zofran Inj) 4 mg IVP Q4H PRN PRN Reason: Nausea/Vomiting Pantoprazole Sodium (Protonix Inj) 40 mg IVP Q12 [facility] Last Admin: 12/29/17 09:34 Dose: 40 mg Polyethylene Glycol (Miralax) 17 gm PO DAILY [facility] Last Admin: 12/29/17 09:37 Dose: 17 gm - Labs Labs: 12/29/17 06:25 12/29/17 06:25 PT 12.2 SECONDS (9.4-12.5) 12/29/17 06:25 INR 1.06 (0.93-1.08) 12/29/17 06:25 APTT 27.8 Seconds (25.1-36.5) 12/29/17 06:25 - Constitutional Appears: Well, No Acute Distress - Head Exam Head Exam: ATRAUMATIC, NORMAL INSPECTION, NORMOCEPHALIC - Eye Exam Eye Exam: EOMI, Normal appearance - ENT Exam ENT Exam: Mucous Membranes Moist Additional comments: +ETT tube, OGT tube - Respiratory Exam Respiratory Exam: Decreased Breath Sounds, NORMAL BREATHING PATTERN. absent: Rhonchi, Wheezes - Cardiovascular Exam Cardiovascular Exam: REGULAR RHYTHM, +S1, +S2 - GI/Abdominal Exam GI & Abdominal Exam: Soft. absent: Guarding, Rigid, Tenderness - Extremities Exam Extremities Exam: Normal Inspection - Neurological Exam Neurological Exam: Alert, Awake - Psychiatric Exam Psychiatric exam: Normal Affect, Normal Mood - Skin Skin Exam: Dry, Normal Color, Warm Assessment and Plan - Assessment and Plan (Free Text) Assessment: A/P: Patient is a 72 yo AA F with PMH of COPD (with prior intubations for exacerbations), asthma, HTN, and pulmonary HTN who presented to [facility] with worsening shortness of breath, found to be in hypercarbic respiratory failure, failing Bipap in ED, then intubated and placed on mechanical ventilation. She is s/p extubation. Patient was re-intubated 2/2 to respiratory acidosis and hypercarbia. Intubated and off sedation at this time. For trach tomorrow with ENT. Plan: Acute exacerbation of COPD with Acute Hypoxic respiratory failure with hypercapnea -Intubated and off sedation -Pt had multiple weaning trial and extubation attempt failures and likely requires tracheostomy -CT head showed non specific white matter changes (see full report) -CT chest showed bibasilar atelectasis, possible left lung infiltrate, superimposed pneumonia cannot be excluded (see full report) -Hydrocortisone 25mg daily (continue taper) -Xopenex and Ipratroprium Q6H [facility], Q2H PRN SOB -Budesanide 1mg Q12H [facility] -Continue Tube feeds, aspiration precautions -Pulmonary on consult, help appreciated -ENT on consult, help appreciated Severe Sepsis 2/2 HCAP -Intubated and off sedation -Leukocytosis resolved -Antibiotics: Doxycycline 100mg Q12, Vancomycin 1gm Q12H, Cefepime 2gm Q8H -Blood cultures showing no growth x 5 days -Urine cultures showing no growth, sputum cultures no growth -ID on consult, help appreciated -Patient to complete total 7 days of IV antibiotics, will discontinue after today per ID recommendations Altered Mental Status (improved) -Intubated and off sedation -Likely due to Toxic metabolic encephalopathy 2/2 chronic CO2 retention -Head CT showed non specific white matter changes (see full report) -Neurology on consult, help appreciated -MRI of brain ordered Elevated Blood Pressures -Currently normatensive -Continue to monitor Relapsing recurrent hypercarbia and respiratory acidosis -Intubated and off sedation -ABG reviewed this morning -Continue to Monitor daily ABGs -Pulmonary on consult, help appreciated Elevated Troponin, SVT -Troponin 0.30 -> 0.16 -Concern for possible NSTEMI -Cardiac cath showed no acute findings -Patient went into SVT over the weekend -Started on Amiodarone 200mg Q12H -Cardiology on consult, help appreciated Diastolic CHF, Moderate Mitral Regurgitation -Echo showed normal LVEF with Moderate Mitral Regurgitation -Cardiology consulted, help appreciated -Continue ASA and Lipitor Transaminitis -LFTs normalized, Hep panel negative -Will continue to monitor Hypokalemia -Potassium 3.3 today -Repleted potassium phosphate -Continue to monitor Hypophosphatemia -Phos 1.8 today -Repleted with potassium phosphate -Will continue to monitor Hypothyroidism -Continue Synthroid 50mcg daily Vitamin D Deficiency -Continue Ergocalciferol 1 tab PO Q7D GI/DVT ppx -Protonix 40mg Q12 IVP -Lovenox 40 SC daily (to be held tonight for OR) Plan discussed with Dr Marcos Sandoval DO PGY-1 <Garett Rodríguez U - Last Filed: 12/29/17 17:41> Objective - Vital Signs/Intake and Output Vital Signs (last 24 hours): Temp Pulse Resp BP Pulse Ox 98.2 F 87 24 103/60 97 12/29/17 04:00 12/29/17 16:00 12/28/17 07:20 12/29/17 16:00 12/29/17 16:00 Intake and Output: 12/29/17 12/29/17 06:59 18:59 Intake Total 995 Output Total 350 Balance 645 - Medications Medications: Current Medications Acetaminophen (Tylenol 650 Mg Supp) 650 mg RC Q6H PRN PRN Reason: TEMP>=99.5F Last Admin: 12/17/17 08:30 Dose: 650 mg Amiodarone HCl (Cordarone) 200 mg PO Q12 [facility] Last Admin: 12/29/17 09:35 Dose: 200 mg Aspirin (Aspirin) 325 mg PO DAILY [facility] Last Admin: 12/29/17 09:37 Dose: 325 mg Atorvastatin Calcium (Lipitor) 10 mg PO DIN [facility] Last Admin: 12/28/17 17:23 Dose: 10 mg Budesonide (Pulmicort Respules) 1 mg IH [id number] [facility] Last Admin: 12/29/17 07:40 Dose: 1 mg Doxycycline Hyclate (Doryx) 100 mg PO Q12 [facility] Last Admin: 12/29/17 09:36 Dose: 100 mg Enoxaparin Sodium (Lovenox) 40 mg SC DAILY [facility] PRN Reason: Protocol Last Admin: 12/29/17 09:34 Dose: 40 mg Ergocalciferol (Drisdol 50,000 Intl Units Cap) 1 cap PO Q7D [facility] Last Admin: 12/27/17 10:03 Dose: Not Given Hydralazine HCl (Apresoline) 10 mg IVP Q6 PRN PRN Reason: Systolic Blood Pressure Last Admin: 12/23/17 14:30 Dose: 10 mg Hydrocortisone Sodium Succinate (Solu-Cortef) 25 mg IVP DAILY [facility] Last Admin: 12/29/17 09:34 Dose: 25 mg Propofol (Diprivan) 1,000 mg in 100 mls @ 2.252 mls/hr IV .Q24H PRN; Protocol; 5 MCG/KG/MIN PRN Reason: TITRATE PER MD ORDER Last Admin: 12/28/17 03:19 Dose: 22.2 mcg/kg/min, 10 mls/hr Potassium Phosphate 15 mmole/ (Dextrose) 255 mls @ 42.5 mls/hr IVPB Q6H [facility] Stop: 12/29/17 19:59 Last Admin: 12/29/17 16:14 Dose: 42.5 mls/hr Ipratropium [place] (Atrovent) 0.5 mg IH [id number] [facility] Last Admin: 12/29/17 14:02 Dose: 0.5 mg Ipratropium [place] (Atrovent) 0.5 mg IH Q2H PRN PRN Reason: Shortness of Breath Levalbuterol HCl (Xopenex) 0.63 mg IH Q2 PRN PRN Reason: Shortness of Breath Levalbuterol HCl (Xopenex) 0.63 mg 0200,0800,1400,2000 [facility] Last Admin: 12/29/17 14:07 Dose: 0.63 mg Ondansetron HCl (Zofran Inj) 4 mg IVP Q4H PRN PRN Reason: Nausea/Vomiting Pantoprazole Sodium (Protonix Inj) 40 mg IVP Q12 [facility] Last Admin: 12/29/17 09:34 Dose: 40 mg Polyethylene Glycol (Miralax) 17 gm PO DAILY [facility] Last Admin: 12/29/17 09:37 Dose: 17 gm - Labs Labs: 12/29/17 06:25 12/29/17 06:25 PT 12.2 SECONDS (9.4-12.5) 12/29/17 06:25 INR 1.06 (0.93-1.08) 12/29/17 06:25 APTT 27.8 Seconds (25.1-36.5) 12/29/17 06:25 Attending/Attestation - Attestation I have personally seen and examined this patient.: Yes I have fully participated in the care of the patient.: Yes I have reviewed all pertinent clinical information, including history, physical exam and plan: Yes Notes (Text): Please see/read my dictated notes.
--- NOTE | 2017-12-29 11:38 | CP.PCM.PN ---
Subjective - Date & Time of Evaluation Date of Evaluation: 12/29/17 Time of Evaluation: 11:32 - Subjective Subjective: ENT note for Dr. Martha Meek, PGY-1 Pt S & E at bedside at 1030 with son at bedside. Pt intubated, not sedated. Aware of surroundings. Spoke with pt and son, they are comfortable that pt can consent herself. Pt indicating that she is aware of need for surgical intervention, amenable to tracheostomy. No current complaints, except dry mouth/wants to brush her teeth. Objective - Vital Signs/Intake and Output Vital Signs (last 24 hours): Temp Pulse Resp BP Pulse Ox 98.2 F 74 24 103/64 90 L 12/29/17 04:00 12/29/17 09:35 12/28/17 07:20 12/29/17 09:35 12/29/17 09:01 Intake and Output: 12/29/17 12/29/17 06:59 18:59 Intake Total 995 Output Total 350 Balance 645 - Medications Medications: Current Medications Acetaminophen (Tylenol 650 Mg Supp) 650 mg RC Q6H PRN PRN Reason: TEMP>=99.5F Last Admin: 12/17/17 08:30 Dose: 650 mg Amiodarone HCl (Cordarone) 200 mg PO Q12 [facility] Last Admin: 12/29/17 09:35 Dose: 200 mg Aspirin (Aspirin) 325 mg PO DAILY [facility] Last Admin: 12/29/17 09:37 Dose: 325 mg Atorvastatin Calcium (Lipitor) 10 mg PO DIN [facility] Last Admin: 12/28/17 17:23 Dose: 10 mg Budesonide (Pulmicort Respules) 1 mg IH [id number] [facility] Last Admin: 12/28/17 20:52 Dose: 1 mg Doxycycline Hyclate (Doryx) 100 mg PO Q12 [facility] Last Admin: 12/29/17 09:36 Dose: 100 mg Enoxaparin Sodium (Lovenox) 40 mg SC DAILY [facility] PRN Reason: Protocol Last Admin: 12/29/17 09:34 Dose: 40 mg Ergocalciferol (Drisdol 50,000 Intl Units Cap) 1 cap PO Q7D [facility] Last Admin: 12/27/17 10:03 Dose: Not Given Hydralazine HCl (Apresoline) 10 mg IVP Q6 PRN PRN Reason: Systolic Blood Pressure Last Admin: 12/23/17 14:30 Dose: 10 mg Hydrocortisone Sodium Succinate (Solu-Cortef) 25 mg IVP DAILY [facility] Last Admin: 12/29/17 09:34 Dose: 25 mg Propofol (Diprivan) 1,000 mg in 100 mls @ 2.252 mls/hr IV .Q24H PRN; Protocol; 5 MCG/KG/MIN PRN Reason: TITRATE PER MD ORDER Last Admin: 12/28/17 03:19 Dose: 22.2 mcg/kg/min, 10 mls/hr Potassium Phosphate 15 mmole/ (Dextrose) 255 mls @ 42.5 mls/hr IVPB Q6H [facility] Stop: 12/29/17 19:59 Last Admin: 12/29/17 09:25 Dose: 42.5 mls/hr Ipratropium [place] (Atrovent) 0.5 mg IH [id number] [facility] Last Admin: 12/29/17 07:40 Dose: 0.5 mg Ipratropium [place] (Atrovent) 0.5 mg IH Q2H PRN PRN Reason: Shortness of Breath Levalbuterol HCl (Xopenex) 0.63 mg IH Q2 PRN PRN Reason: Shortness of Breath Levalbuterol HCl (Xopenex) 0.63 mg IH 0200,0800,1400,2000 [facility] Last Admin: 12/29/17 07:40 Dose: 0.63 mg Ondansetron HCl (Zofran Inj) 4 mg IVP Q4H PRN PRN Reason: Nausea/Vomiting Pantoprazole Sodium (Protonix Inj) 40 mg IVP Q12 [facility] Last Admin: 12/29/17 09:34 Dose: 40 mg Polyethylene Glycol (Miralax) 17 gm PO DAILY [facility] Last Admin: 12/29/17 09:37 Dose: 17 gm - Labs Labs: 12/29/17 06:25 12/29/17 06:25 PT 12.2 SECONDS (9.4-12.5) 12/29/17 06:25 INR 1.06 (0.93-1.08) 12/29/17 06:25 APTT 27.8 Seconds (25.1-36.5) 12/29/17 06:25 - Constitutional Appears: Non-toxic, No Acute Distress - Head Exam Head Exam: ATRAUMATIC, NORMAL INSPECTION, NORMOCEPHALIC - Eye Exam Eye Exam: EOMI, Normal appearance - ENT Exam ENT Exam: Mucous Membranes Dry (ET tube in place) - Neck Exam Neck Exam: Normal Inspection - Respiratory Exam Respiratory Exam: NORMAL BREATHING PATTERN - Cardiovascular Exam Cardiovascular Exam: REGULAR RHYTHM, +S1, +S2 - GI/Abdominal Exam GI & Abdominal Exam: Soft. absent: Distended, Firm, Guarding, Rigid, Tenderness - Extremities Exam Extremities Exam: Normal Inspection - Neurological Exam Neurological Exam: Awake Assessment and Plan - Assessment and Plan (Free Text) Assessment: 72F w/respiratory failure due to COPD exacerbation, requiring group home mechanical ventilation Plan: Plan for OR tomorrow for tracheostomy COnsent in chart COnsented for blood transfusion- also in chart Hold anticoagulation All questions answered Further mgmt as per primary & ICU teams Will DW attending [place], PGY-1
--- NOTE | 2017-12-29 11:56 | CP.CCUPN ---
<Venancio Olivera - Last Filed: 12/29/17 12:21> CCU Subjective - Physician Review Subjective (Free Text): 12/29/17 08:00A Patient seen and examined at bedside. Patient motions that she is feeling better. Son at bedside with questions re: Trach, was referred to surgery for questions. Patient otherwise feeling well. CCU Objective - Vital Signs / Intake & Output Vital Signs (Last 4 hours): Vital Signs Pulse BP Pulse Ox 12/29/17 09:35 74 103/64 12/29/17 09:01 85 103/64 90 L 12/29/17 09:00 80 100 12/29/17 08:00 75 111/65 100 Intake and Output (Last 8hrs): Intake & Output 12/28/17 12/29/17 12/29/17 22:59 06:59 14:59 Intake Total 1350 995 Output Total 850 350 Balance 500 645 Weight 56.699 kg Intake: IV 700 250 Left Internal Jugular 450 vancomycin 250 250 Tube Feeding 650 545 Other 200 Output: Urine 850 350 Urethral ([place]) 850 350 Stool 0 Other: # Bowel Movements 0 - Physical Exam Head: Positive for: Atraumatic, Normocephalic Pupils: Positive for: PERRL. Negative for: Non-Reactive, Pinpoint Extroacular Muscles: Positive for: EOMI. Negative for: Gaze Palsy, Entrapment Conjunctiva: Positive for: Normal. Negative for: Injected, Icteric Mouth: Positive for: Moist Mucous Membranes, Normal Lips, Normal Tounge. Negative for: Drooling Pharnyx: Positive for: Other (face and jaw swollen) Nose (External): Positive for: Atraumatic. Negative for: Abrasion, Laceration Nose (Internal): Positive for: Normal Inspection, No Active Bleeding. Negative for: Epistaxis Neck: Positive for: Normal Range of Motion. Negative for: Meningeal Signs, MIDLINE TENDERNESS, Paraspinal Tenderness, JVD Respiratory/Chest: Positive for: Clear to Auscultation, Good Air Exchange, Decreased Breath Sounds (mildly decreased breath sounds all bauer, again improved over prior exams). Negative for: Respiratory Distress, Accessory Muscle Use, Wheezes (no further wheezing appreciated on exam today), Rales, Rhonchi Cardiovascular: Positive for: Regular Rate and Rhythm, Normal S1, S2. Negative for: Murmurs, Irregular Rhythm, Tachycardic, Bradycardic Abdomen: Negative for: Tenderness, Distention, Peritoneal Signs Back: Positive for: Normal Inspection. Negative for: CVA Tenderness, Midline Tenderness, Paraspinal Tenderness Upper Extremity: Positive for: Normal Inspection, Normal ROM, NORMAL PULSES. Negative for: Cyanosis, Edema, Tenderness, Swelling, Erythema, Deformity Lower Extremity: Positive for: Normal Inspection, NORMAL PULSES, Normal ROM. Negative for: Edema, CALF TENDERNESS, Cyanosis, Tenderness, Swelling, Erythema, Deformity Neurological: Positive for: GCS=15, Speech Normal, Motor Func Grossly Intact, Normal Sensory Function, Other (following all commands appropriately, no appreciable lethargy/somnolence) Skin: Positive for: Warm, Dry, Normal Color. Negative for: Rashes Psychiatric: Positive for: Alert, Oriented x 3 (x4 (self, location, year, president)), Normal Insight, Normal Concentration, Normal Affect, Normal Mood - Medications Active Medications: Active Medications Generic Name Dose Route Start Last Admin Trade Name Freq PRN Reason Stop Dose Admin Acetaminophen 650 mg 12/16/17 19:09 12/17/17 08:30 Tylenol 650 Mg Supp RC 650 mg Q6H PRN Administration TEMP>=99.5F Amiodarone HCl 200 mg 12/28/17 10:15 12/29/17 09:35 Cordarone PO 200 mg Q12 DAVE Administration Aspirin 325 mg 12/20/17 10:00 12/29/17 09:37 Aspirin PO 325 mg DAILY DAVE Administration Atorvastatin Calcium 10 mg 12/19/17 17:00 12/28/17 17:23 Lipitor PO 10 mg DIN DAVE Administration Budesonide 1 mg 12/22/17 20:00 12/28/17 20:52 Pulmicort Respules IH 1 mg [id number] DAVE Administration Doxycycline Hyclate 100 mg 12/19/17 22:00 12/29/17 09:36 Doryx PO 100 mg Q12 DAVE Administration Enoxaparin Sodium 40 mg 12/17/17 10:00 12/29/17 09:34 Lovenox SC 40 mg DAILY DAVE Administration Protocol Ergocalciferol 1 cap 12/20/17 10:00 12/27/17 10:03 Drisdol 50,000 Intl Units Cap PO Not Given Q7D DAVE Hydralazine HCl 10 mg 12/23/17 14:29 12/23/17 14:30 Apresoline IVP 10 mg Q6 PRN Administration Systolic Blood Pressure Hydrocortisone Sodium Succinate 25 mg 12/29/17 10:00 12/29/17 09:34 Solu-Cortef IVP 25 mg DAILY DAVE Administration Propofol 1,000 mg in 100 mls @ 2.252 mls/hr 12/26/17 22:05 12/28/17 03:19 Diprivan IV 22.2 mcg/kg/min .Q24H PRN 10 mls/hr TITRATE PER MD ORDER Administration Protocol 5 MCG/KG/MIN Potassium Phosphate 15 mmole/ 255 mls @ 42.5 mls/hr 12/29/17 08:00 12/29/17 09:25 Dextrose IVPB 12/29/17 19:59 42.5 mls/hr Q6H DAVE Administration Ipratropium [place] 0.5 mg 12/22/17 14:00 12/29/17 07:40 Atrovent IH 0.5 mg [id number] DAVE Administration Ipratropium [place] 0.5 mg 12/22/17 12:21 Atrovent IH Q2H PRN Shortness of Breath Levalbuterol HCl 0.63 mg 12/16/17 15:37 Xopenex IH Q2 PRN Shortness of Breath Levalbuterol HCl 0.63 mg 12/22/17 08:00 12/29/17 07:40 Xopenex IH 0.63 mg 0200,0800,1400,2000 DAVE Administration Ondansetron HCl 4 mg 12/16/17 19:09 Zofran Inj IVP Q4H PRN Nausea/Vomiting Pantoprazole Sodium 40 mg 12/23/17 22:00 12/29/17 09:34 Protonix Inj IVP 40 mg Q12 DAVE Administration Polyethylene Glycol 17 gm 12/19/17 10:30 12/29/17 09:37 Miralax PO 17 gm DAILY DAVE Administration - Patient Studies Lab Studies: Microbiology Studies 12/23/17 19:15 Blood Culture - Final Blood NO GROWTH AFTER 5 DAYS Gram Stain - Final TEST NOT PERFORMED 12/23/17 18:15 Blood Culture - Final Blood NO GROWTH AFTER 5 DAYS Gram Stain - Final TEST NOT PERFORMED Lab Studies 06/11/18 06/11/18 06/11/18 Range/Units 11:28 06:26 06:25 WBC 10.7 (4.5-11.0) 10^3/ul RBC 3.67 (3.5-6.1) 10^6/uL Hgb 10.5 L (12.0-16.0) g/dL Hct 33.1 L (36.0-48.0) % MCV 90.2 (80.0-105.0) fl MCH 28.6 (25.0-35.0) pg MCHC 31.7 (31.0-37.0) g/dl RDW 14.7 H (11.5-14.5) % Plt Count 159 (120.0-450.0) 10^3/uL MPV 12.0 H (7.0-11.0) fl Gran % 79.3 H (50.0-68.0) % Lymph % (Auto) 13.0 L (22.0-35.0) % [place] % (Auto) 7.1 H (1.0-6.0) % Eos % (Auto) 0.6 L (1.5-5.0) % Baso % (Auto) 0.0 (0.0-3.0) % Gran # 8.50 H (1.4-6.5) Lymph # (Auto) 1.4 (1.2-3.4) [place] # (Auto) 0.8 H (0.1-0.6) Eos # (Auto) 0.1 (0.0-0.7) Baso # (Auto) 0.00 (0.0-2.0) K/mm3 PT (9.4-12.5) SECONDS INR (0.93-1.08) APTT (25.1-36.5) Seconds pCO2 (35-45) mm/Hg pO2 (80-100) mm/Hg HCO3 (21-28) mmol/L ABG pH (7.35-7.45) ABG Total CO2 (22-28) mmol.L ABG O2 Saturation (95-98) % ABG O2 Content (15-23) ML/dl ABG Base Excess (-2.0-3.0) mmol/L ABG Hemoglobin (11.7-17.4) g/dL ABG Carboxyhemoglobin (0.5-1.5) % POC ABG HHb (Measured) (0-5) % ABG Methemoglobin (0.0-3.0) % ABG O2 Capacity (16-24) mL/dl Hgb O2 Saturation (95.0-98.0) % FiO2 % Sodium (132-148) mmol/L Potassium (3.6-5.0) mmol/L Chloride (98-107) mmol/L Carbon Dioxide (21-33) mmol/L Anion Gap (10-20) BUN (7-21) mg/dL Creatinine (0.7-1.2) mg/dl Est GFR ( Amer) Est GFR (Non-Af Amer) POC Glucose (mg/dL) 119 H 138 H (65-110) mg/dL Random Glucose (70-110) mg/dL Calcium (8.4-10.5) mg/dL Phosphorus (2.5-4.5) mg/dL Magnesium (1.7-2.2) mg/dL Total Bilirubin (0.2-1.3) mg/dL Direct Bilirubin (0.0-0.4) mg/dL AST (14-36) U/L ALT (7-56) U/L Alkaline Phosphatase (38-126) U/L Total Protein (5.8-8.3) g/dL Albumin (3.0-4.8) g/dL Globulin gm/dL Albumin/Globulin Ratio (1.1-1.8) 12/29/17 12/29/17 12/29/17 Range/Units 06:25 06:25 05:30 WBC (4.5-11.0) 10^3/ul RBC (3.5-6.1) 10^6/uL Hgb (12.0-16.0) g/dL Hct (36.0-48.0) % MCV (80.0-105.0) fl MCH (25.0-35.0) pg MCHC (31.0-37.0) g/dl RDW (11.5-14.5) % Plt Count (120.0-450.0) 10^3/uL MPV (7.0-11.0) fl Gran % (50.0-68.0) % Lymph % (Auto) (22.0-35.0) % [place] % (Auto) (1.0-6.0) % Eos % (Auto) (1.5-5.0) % Baso % (Auto) (0.0-3.0) % Gran # (1.4-6.5) Lymph # (Auto) (1.2-3.4) [place] # (Auto) (0.1-0.6) Eos # (Auto) (0.0-0.7) Baso # (Auto) (0.0-2.0) K/mm3 PT 12.2 (9.4-12.5) SECONDS INR 1.06 (0.93-1.08) APTT 27.8 (25.1-36.5) Seconds pCO2 52 H (35-45) mm/Hg pO2 108.0 H (80-100) mm/Hg HCO3 37.0 H (21-28) mmol/L ABG pH 7.46 H (7.35-7.45) ABG Total CO2 38.6 H (22-28) mmol.L ABG O2 Saturation 99.7 H (95-98) % ABG O2 Content 14.7 L (15-23) ML/dl ABG Base Excess 11.5 H (-2.0-3.0) mmol/L ABG Hemoglobin 10.7 L (11.7-17.4) g/dL ABG Carboxyhemoglobin 1.8 H (0.5-1.5) % POC ABG HHb (Measured) 0.3 (0-5) % ABG Methemoglobin 1.4 (0.0-3.0) % ABG O2 Capacity 14.7 L (16-24) mL/dl Hgb O2 Saturation 96.5 (95.0-98.0) % FiO2 35.0 % Sodium 144 (132-148) mmol/L Potassium 3.3 L (3.6-5.0) mmol/L Chloride 102 (98-107) mmol/L Carbon Dioxide 37 H (21-33) mmol/L Anion Gap 8 L (10-20) BUN 12 (7-21) mg/dL Creatinine 0.3 L (0.7-1.2) mg/dl Est GFR ( Amer) > 60 Est GFR (Non-Af Amer) > 60 POC Glucose (mg/dL) (65-110) mg/dL Random Glucose 128 H (70-110) mg/dL Calcium 7.8 L (8.4-10.5) mg/dL Phosphorus 1.8 L (2.5-4.5) mg/dL Magnesium 2.0 (1.7-2.2) mg/dL Total Bilirubin 0.3 (0.2-1.3) mg/dL Direct Bilirubin 0.0 (0.0-0.4) mg/dL AST 20 (14-36) U/L ALT 40 (7-56) U/L Alkaline Phosphatase 53 (38-126) U/L Total Protein 5.2 L (5.8-8.3) g/dL Albumin 2.8 L (3.0-4.8) g/dL Globulin 2.4 gm/dL Albumin/Globulin Ratio 1.2 (1.1-1.8) 12/29/17 12/28/17 12/28/17 Range/Units 00:54 17:23 12:11 WBC (4.5-11.0) 10^3/ul RBC (3.5-6.1) 10^6/uL Hgb (12.0-16.0) g/dL Hct (36.0-48.0) % MCV (80.0-105.0) fl MCH (25.0-35.0) pg MCHC (31.0-37.0) g/dl RDW (11.5-14.5) % Plt Count (120.0-450.0) 10^3/uL MPV (7.0-11.0) fl Gran % (50.0-68.0) % Lymph % (Auto) (22.0-35.0) % [place] % (Auto) (1.0-6.0) % Eos % (Auto) (1.5-5.0) % Baso % (Auto) (0.0-3.0) % Gran # (1.4-6.5) Lymph # (Auto) (1.2-3.4) [place] # (Auto) (0.1-0.6) Eos # (Auto) (0.0-0.7) Baso # (Auto) (0.0-2.0) K/mm3 PT (9.4-12.5) SECONDS INR (0.93-1.08) APTT (25.1-36.5) Seconds pCO2 (35-45) mm/Hg pO2 (80-100) mm/Hg HCO3 (21-28) mmol/L ABG pH (7.35-7.45) ABG Total CO2 (22-28) mmol.L ABG O2 Saturation (95-98) % ABG O2 Content (15-23) ML/dl ABG Base Excess (-2.0-3.0) mmol/L ABG Hemoglobin (11.7-17.4) g/dL ABG Carboxyhemoglobin (0.5-1.5) % POC ABG HHb (Measured) (0-5) % ABG Methemoglobin (0.0-3.0) % ABG O2 Capacity (16-24) mL/dl Hgb O2 Saturation (95.0-98.0) % FiO2 % Sodium (132-148) mmol/L Potassium (3.6-5.0) mmol/L Chloride (98-107) mmol/L Carbon Dioxide (21-33) mmol/L Anion Gap (10-20) BUN (7-21) mg/dL Creatinine (0.7-1.2) mg/dl Est GFR ( Amer) Est GFR (Non-Af Amer) POC Glucose (mg/dL) 110 158 H 130 H (65-110) mg/dL Random Glucose (70-110) mg/dL Calcium (8.4-10.5) mg/dL Phosphorus (2.5-4.5) mg/dL Magnesium (1.7-2.2) mg/dL Total Bilirubin (0.2-1.3) mg/dL Direct Bilirubin (0.0-0.4) mg/dL AST (14-36) U/L ALT (7-56) U/L Alkaline Phosphatase (38-126) U/L Total Protein (5.8-8.3) g/dL Albumin (3.0-4.8) g/dL Globulin gm/dL Albumin/Globulin Ratio (1.1-1.8) Laboratory Results - last 24 hr 12/28/17 12/28/17 12/29/17 12:11 17:23 00:54 WBC RBC Hgb Hct MCV MCH MCHC RDW Plt Count MPV Gran % Lymph % (Auto) [place] % (Auto) Eos % (Auto) Baso % (Auto) Gran # Lymph # (Auto) [place] # (Auto) Eos # (Auto) Baso # (Auto) PT INR APTT pCO2 pO2 HCO3 ABG pH ABG Total CO2 ABG O2 Saturation ABG O2 Content ABG Base Excess ABG Hemoglobin ABG Carboxyhemoglobin POC ABG HHb (Measured) ABG Methemoglobin ABG O2 Capacity Hgb O2 Saturation FiO2 Sodium Potassium Chloride Carbon Dioxide Anion Gap BUN Creatinine Est GFR ( Amer) Est GFR (Non-Af Amer) POC Glucose (mg/dL) 130 H 158 H 110 Random Glucose Calcium Phosphorus Magnesium Total Bilirubin Direct Bilirubin AST ALT Alkaline Phosphatase Total Protein Albumin Globulin Albumin/Globulin Ratio 12/29/17 12/29/17 12/29/17 05:30 06:25 06:25 WBC RBC Hgb Hct MCV MCH MCHC RDW Plt Count MPV Gran % Lymph % (Auto) [place] % (Auto) Eos % (Auto) Baso % (Auto) Gran # Lymph # (Auto) [place] # (Auto) Eos # (Auto) Baso # (Auto) PT 12.2 INR 1.06 APTT 27.8 pCO2 52 H pO2 108.0 H HCO3 37.0 H ABG pH 7.46 H ABG Total CO2 38.6 H ABG O2 Saturation 99.7 H ABG O2 Content 14.7 L ABG Base Excess 11.5 H ABG Hemoglobin 10.7 L ABG Carboxyhemoglobin 1.8 H POC ABG HHb (Measured) 0.3 ABG Methemoglobin 1.4 ABG O2 Capacity 14.7 L Hgb O2 Saturation 96.5 FiO2 35.0 Sodium 144 Potassium 3.3 L Chloride 102 Carbon Dioxide 37 H Anion Gap 8 L BUN 12 Creatinine 0.3 L Est GFR ( Amer) > 60 Est GFR (Non-Af Amer) > 60 POC Glucose (mg/dL) Random Glucose 128 H Calcium 7.8 L Phosphorus 1.8 L Magnesium 2.0 Total Bilirubin 0.3 Direct Bilirubin 0.0 AST 20 ALT 40 Alkaline Phosphatase 53 Total Protein 5.2 L Albumin 2.8 L Globulin 2.4 Albumin/Globulin Ratio 1.2 06/11/18 06/11/18 06/11/18 06:25 06:26 11:28 WBC 10.7 RBC 3.67 Hgb 10.5 L Hct 33.1 L MCV 90.2 MCH 28.6 MCHC 31.7 RDW 14.7 H Plt Count 159 MPV 12.0 H Gran % 79.3 H Lymph % (Auto) 13.0 L [place] % (Auto) 7.1 H Eos % (Auto) 0.6 L Baso % (Auto) 0.0 Gran # 8.50 H Lymph # (Auto) 1.4 [place] # (Auto) 0.8 H Eos # (Auto) 0.1 Baso # (Auto) 0.00 PT INR APTT pCO2 pO2 HCO3 ABG pH ABG Total CO2 ABG O2 Saturation ABG O2 Content ABG Base Excess ABG Hemoglobin ABG Carboxyhemoglobin POC ABG HHb (Measured) ABG Methemoglobin ABG O2 Capacity Hgb O2 Saturation FiO2 Sodium Potassium Chloride Carbon Dioxide Anion Gap BUN Creatinine Est GFR ( Amer) Est GFR (Non-Af Amer) POC Glucose (mg/dL) 138 H 119 H Random Glucose Calcium Phosphorus Magnesium Total Bilirubin Direct Bilirubin AST ALT Alkaline Phosphatase Total Protein Albumin Globulin Albumin/Globulin Ratio Fingerstick Blood Sugar Results: 138 Critical Care Progress Note - Nutrition Nutrition: Nutrition Category Date Time Status NPO Diet [DIET] Diets 12/23/17 Lunch Ordered Assessment/Plan - Assessment and Plan (Free Text) Assessment: 72 yo AA F in ICU care for Hypercapneic Hypoxic Respiratory Failure likely 2/2 COPD Exacerbation who is intubated but not sedated. Patient failed bipap trial when first brought into ED on 12/16 with initial ABG showing patient to be in severe respiratory acidosis with retention of CO2; patient was also altered as a result of Hypoxemic Hypercapneic Respiratory failure. Patient was doing better and was extubated on 12/18; On 12/23 she was ready for transfer out of ICU when she started desatting and was becoming acutely altered mentally. Patient was re-intubated and CT Head after intubation to rule out any neurogenic causes for her desaturation, was negative. Septic work up was ordered with sputum cultures, blood cultures, and urine cultures all negative. CT Chest shows bibasilar atelectasis with possible overlying pneumonia. However , most recent CXR shows improving bilateral venous congestion, and this corresponds to improving clinical exam as well. ABG today is good, with PCO2 slightly increased at 52; O2 normalizing at 108; HCO3 at 37 (up from 29 yesterday); pH alkalotic today vs ystdy - 7.46 today; FiO2 35. Patient was also taken to rn labor delivery two days ago which showed no critical lesions , was taken because trope was elevated. 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 Parry - Lovenox for DVT ppx; Daily ASA Pulm: - Hypoxic Hypercapneic Respiratory Failure Likely 2/2 PNA VS COPD VS Mixed picture - Vanc/Cefepime/Doxy - Solumedrol, Xopenex, Atrovent, Budesonide - Maintain current Vent settings - ENT consult for tracheostomy: For Friday, 12/30 - Pulm consult: Dr. Smart GI: - Protonix for GI ppx - Miralax Dave; Zofran PRN Renal: - Monitor and replete electrolytes as needed Heme: - Lovenox for DVT ppx Endo: - Maintain euglycemia ID: - Covered for PNA with Cefepime and Vanc; Doxy should be administered via OGT Dispo: Patient for Trach on Friday, will keep her intubated til then. <Stef Houston - Last Filed: 12/29/17 12:51> CCU Objective - Vital Signs / Intake & Output Vital Signs (Last 4 hours): Vital Signs Pulse BP Pulse Ox 12/29/17 09:35 74 103/64 12/29/17 09:01 85 103/64 90 L 12/29/17 09:00 80 100 Intake and Output (Last 8hrs): Intake & Output 12/28/17 12/29/17 12/29/17 22:59 06:59 14:59 Intake Total 1350 995 Output Total 850 350 Balance 500 645 Weight 125 lb Intake: IV 700 250 Left Internal Jugular 450 vancomycin 250 250 Tube Feeding 650 545 Other 200 Output: Urine 850 350 Urethral ([place]) 850 350 Stool 0 Other: # Bowel Movements 0 - Medications Active Medications: Active Medications Generic Name Dose Route Start Last Admin Trade Name Freq PRN Reason Stop Dose Admin Acetaminophen 650 mg 12/16/17 19:09 12/17/17 08:30 Tylenol 650 Mg Supp RC 650 mg Q6H PRN Administration TEMP>=99.5F Amiodarone HCl 200 mg 12/28/17 10:15 12/29/17 09:35 Cordarone PO 200 mg Q12 DAVE Administration Aspirin 325 mg 12/20/17 10:00 12/29/17 09:37 Aspirin PO 325 mg DAILY DAVE Administration Atorvastatin Calcium 10 mg 12/19/17 17:00 12/28/17 17:23 Lipitor PO 10 mg DIN DAVE Administration Budesonide 1 mg 12/22/17 20:00 12/28/17 20:52 Pulmicort Respules IH 1 mg [id number] DAVE Administration Doxycycline Hyclate 100 mg 12/19/17 22:00 12/29/17 09:36 Doryx PO 100 mg Q12 DAVE Administration Enoxaparin Sodium 40 mg 12/17/17 10:00 12/29/17 09:34 Lovenox SC 40 mg DAILY DAVE Administration Protocol Ergocalciferol 1 cap 12/20/17 10:00 12/27/17 10:03 Drisdol 50,000 Intl Units Cap PO Not Given Q7D [facility] Hydralazine HCl 10 mg 12/23/17 14:29 12/23/17 14:30 Apresoline IVP 10 mg Q6 PRN Administration Systolic Blood Pressure Hydrocortisone Sodium Succinate 25 mg 12/29/17 10:00 12/29/17 09:34 Solu-Cortef IVP 25 mg DAILY DAVE Administration Propofol 1,000 mg in 100 mls @ 2.252 mls/hr 12/26/17 22:05 12/28/17 03:19 Diprivan IV 22.2 mcg/kg/min .Q24H PRN 10 mls/hr TITRATE PER MD ORDER Administration Protocol 5 MCG/KG/MIN Potassium Phosphate 15 mmole/ 255 mls @ 42.5 mls/hr 12/29/17 08:00 12/29/17 09:25 Dextrose IVPB 12/29/17 19:59 42.5 mls/hr Q6H DAVE Administration Ipratropium [place] 0.5 mg 12/22/17 14:00 12/29/17 07:40 Atrovent IH 0.5 mg [id number] DAVE Administration Ipratropium [place] 0.5 mg 12/22/17 12:21 Atrovent IH Q2H PRN Shortness of Breath Levalbuterol HCl 0.63 mg 12/16/17 15:37 Xopenex IH Q2 PRN Shortness of Breath Levalbuterol HCl 0.63 mg 12/22/17 08:00 12/29/17 07:40 Xopenex IH 0.63 mg 0200,0800,1400,2000 DAVE Administration Ondansetron HCl 4 mg 12/16/17 19:09 Zofran Inj IVP Q4H PRN Nausea/Vomiting Pantoprazole Sodium 40 mg 12/23/17 22:00 12/29/17 09:34 Protonix Inj IVP 40 mg Q12 DAVE Administration Polyethylene Glycol 17 gm 12/19/17 10:30 12/29/17 09:37 Miralax PO 17 gm DAILY DAVE Administration - Patient Studies Lab Studies: Microbiology Studies 12/23/17 19:15 Blood Culture - Final Blood NO GROWTH AFTER 5 DAYS Gram Stain - Final TEST NOT PERFORMED 12/23/17 18:15 Blood Culture - Final Blood NO GROWTH AFTER 5 DAYS Gram Stain - Final TEST NOT PERFORMED Lab Studies 12/29/17 12/29/17 12/29/17 Range/Units 11:28 06:26 06:25 WBC 10.7 (4.5-11.0) 10^3/ul RBC 3.67 (3.5-6.1) 10^6/uL Hgb 10.5 L (12.0-16.0) g/dL Hct 33.1 L (36.0-48.0) % MCV 90.2 (80.0-105.0) fl MCH 28.6 (25.0-35.0) pg MCHC 31.7 (31.0-37.0) g/dl RDW 14.7 H (11.5-14.5) % Plt Count 159 (120.0-450.0) 10^3/uL MPV 12.0 H (7.0-11.0) fl Gran % 79.3 H (50.0-68.0) % Lymph % (Auto) 13.0 L (22.0-35.0) % [place] % (Auto) 7.1 H (1.0-6.0) % Eos % (Auto) 0.6 L (1.5-5.0) % Baso % (Auto) 0.0 (0.0-3.0) % Gran # 8.50 H (1.4-6.5) Lymph # (Auto) 1.4 (1.2-3.4) [place] # (Auto) 0.8 H (0.1-0.6) Eos # (Auto) 0.1 (0.0-0.7) Baso # (Auto) 0.00 (0.0-2.0) K/mm3 PT (9.4-12.5) SECONDS INR (0.93-1.08) APTT (25.1-36.5) Seconds pCO2 (35-45) mm/Hg pO2 (80-100) mm/Hg HCO3 (21-28) mmol/L ABG pH (7.35-7.45) ABG Total CO2 (22-28) mmol.L ABG O2 Saturation (95-98) % ABG O2 Content (15-23) ML/dl ABG Base Excess (-2.0-3.0) mmol/L ABG Hemoglobin (11.7-17.4) g/dL ABG Carboxyhemoglobin (0.5-1.5) % POC ABG HHb (Measured) (0-5) % ABG Methemoglobin (0.0-3.0) % ABG O2 Capacity (16-24) mL/dl Hgb O2 Saturation (95.0-98.0) % FiO2 % Sodium (132-148) mmol/L Potassium (3.6-5.0) mmol/L Chloride (98-107) mmol/L Carbon Dioxide (21-33) mmol/L Anion Gap (10-20) BUN (7-21) mg/dL Creatinine (0.7-1.2) mg/dl Est GFR ( Amer) Est GFR (Non-Af Amer) POC Glucose (mg/dL) 119 H 138 H (65-110) mg/dL Random Glucose (70-110) mg/dL Calcium (8.4-10.5) mg/dL Phosphorus (2.5-4.5) mg/dL Magnesium (1.7-2.2) mg/dL Total Bilirubin (0.2-1.3) mg/dL Direct Bilirubin (0.0-0.4) mg/dL AST (14-36) U/L ALT (7-56) U/L Alkaline Phosphatase (38-126) U/L Total Protein (5.8-8.3) g/dL Albumin (3.0-4.8) g/dL Globulin gm/dL Albumin/Globulin Ratio (1.1-1.8) 12/29/17 12/29/17 12/29/17 Range/Units 06:25 06:25 05:30 WBC (4.5-11.0) 10^3/ul RBC (3.5-6.1) 10^6/uL Hgb (12.0-16.0) g/dL Hct (36.0-48.0) % MCV (80.0-105.0) fl MCH (25.0-35.0) pg MCHC (31.0-37.0) g/dl RDW (11.5-14.5) % Plt Count (120.0-450.0) 10^3/uL MPV (7.0-11.0) fl Gran % (50.0-68.0) % Lymph % (Auto) (22.0-35.0) % [place] % (Auto) (1.0-6.0) % Eos % (Auto) (1.5-5.0) % Baso % (Auto) (0.0-3.0) % Gran # (1.4-6.5) Lymph # (Auto) (1.2-3.4) [place] # (Auto) (0.1-0.6) Eos # (Auto) (0.0-0.7) Baso # (Auto) (0.0-2.0) K/mm3 PT 12.2 (9.4-12.5) SECONDS INR 1.06 (0.93-1.08) APTT 27.8 (25.1-36.5) Seconds pCO2 52 H (35-45) mm/Hg pO2 108.0 H (80-100) mm/Hg HCO3 37.0 H (21-28) mmol/L ABG pH 7.46 H (7.35-7.45) ABG Total CO2 38.6 H (22-28) mmol.L ABG O2 Saturation 99.7 H (95-98) % ABG O2 Content 14.7 L (15-23) ML/dl ABG Base Excess 11.5 H (-2.0-3.0) mmol/L ABG Hemoglobin 10.7 L (11.7-17.4) g/dL ABG Carboxyhemoglobin 1.8 H (0.5-1.5) % POC ABG HHb (Measured) 0.3 (0-5) % ABG Methemoglobin 1.4 (0.0-3.0) % ABG O2 Capacity 14.7 L (16-24) mL/dl Hgb O2 Saturation 96.5 (95.0-98.0) % FiO2 35.0 % Sodium 144 (132-148) mmol/L Potassium 3.3 L (3.6-5.0) mmol/L Chloride 102 (98-107) mmol/L Carbon Dioxide 37 H (21-33) mmol/L Anion Gap 8 L (10-20) BUN 12 (7-21) mg/dL Creatinine 0.3 L (0.7-1.2) mg/dl Est GFR ( Amer) > 60 Est GFR (Non-Af Amer) > 60 POC Glucose (mg/dL) (65-110) mg/dL Random Glucose 128 H (70-110) mg/dL Calcium 7.8 L (8.4-10.5) mg/dL Phosphorus 1.8 L (2.5-4.5) mg/dL Magnesium 2.0 (1.7-2.2) mg/dL Total Bilirubin 0.3 (0.2-1.3) mg/dL Direct Bilirubin 0.0 (0.0-0.4) mg/dL AST 20 (14-36) U/L ALT 40 (7-56) U/L Alkaline Phosphatase 53 (38-126) U/L Total Protein 5.2 L (5.8-8.3) g/dL Albumin 2.8 L (3.0-4.8) g/dL Globulin 2.4 gm/dL Albumin/Globulin Ratio 1.2 (1.1-1.8) 12/29/17 12/28/17 Range/Units 00:54 17:23 WBC (4.5-11.0) 10^3/ul RBC (3.5-6.1) 10^6/uL Hgb (12.0-16.0) g/dL Hct (36.0-48.0) % MCV (80.0-105.0) fl MCH (25.0-35.0) pg MCHC (31.0-37.0) g/dl RDW (11.5-14.5) % Plt Count (120.0-450.0) 10^3/uL MPV (7.0-11.0) fl Gran % (50.0-68.0) % Lymph % (Auto) (22.0-35.0) % [place] % (Auto) (1.0-6.0) % Eos % (Auto) (1.5-5.0) % Baso % (Auto) (0.0-3.0) % Gran # (1.4-6.5) Lymph # (Auto) (1.2-3.4) [place] # (Auto) (0.1-0.6) Eos # (Auto) (0.0-0.7) Baso # (Auto) (0.0-2.0) K/mm3 PT (9.4-12.5) SECONDS INR (0.93-1.08) APTT (25.1-36.5) Seconds pCO2 (35-45) mm/Hg pO2 (80-100) mm/Hg HCO3 (21-28) mmol/L ABG pH (7.35-7.45) ABG Total CO2 (22-28) mmol.L ABG O2 Saturation (95-98) % ABG O2 Content (15-23) ML/dl ABG Base Excess (-2.0-3.0) mmol/L ABG Hemoglobin (11.7-17.4) g/dL ABG Carboxyhemoglobin (0.5-1.5) % POC ABG HHb (Measured) (0-5) % ABG Methemoglobin (0.0-3.0) % ABG O2 Capacity (16-24) mL/dl Hgb O2 Saturation (95.0-98.0) % FiO2 % Sodium (132-148) mmol/L Potassium (3.6-5.0) mmol/L Chloride (98-107) mmol/L Carbon Dioxide (21-33) mmol/L Anion Gap (10-20) BUN (7-21) mg/dL Creatinine (0.7-1.2) mg/dl Est GFR ( Amer) Est GFR (Non-Af Amer) POC Glucose (mg/dL) 110 158 H (65-110) mg/dL Random Glucose (70-110) mg/dL Calcium (8.4-10.5) mg/dL Phosphorus (2.5-4.5) mg/dL Magnesium (1.7-2.2) mg/dL Total Bilirubin (0.2-1.3) mg/dL Direct Bilirubin (0.0-0.4) mg/dL AST (14-36) U/L ALT (7-56) U/L Alkaline Phosphatase (38-126) U/L Total Protein (5.8-8.3) g/dL Albumin (3.0-4.8) g/dL Globulin gm/dL Albumin/Globulin Ratio (1.1-1.8) Laboratory Results - last 24 hr 12/28/17 12/29/17 12/29/17 17:23 00:54 05:30 WBC RBC Hgb Hct MCV MCH MCHC RDW Plt Count MPV Gran % Lymph % (Auto) [place] % (Auto) Eos % (Auto) Baso % (Auto) Gran # Lymph # (Auto) [place] # (Auto) Eos # (Auto) Baso # (Auto) PT INR APTT pCO2 52 H pO2 108.0 H HCO3 37.0 H ABG pH 7.46 H ABG Total CO2 38.6 H ABG O2 Saturation 99.7 H ABG O2 Content 14.7 L ABG Base Excess 11.5 H ABG Hemoglobin 10.7 L ABG Carboxyhemoglobin 1.8 H POC ABG HHb (Measured) 0.3 ABG Methemoglobin 1.4 ABG O2 Capacity 14.7 L Hgb O2 Saturation 96.5 FiO2 35.0 Sodium Potassium Chloride Carbon Dioxide Anion Gap BUN Creatinine Est GFR ( Amer) Est GFR (Non-Af Amer) POC Glucose (mg/dL) 158 H 110 Random Glucose Calcium Phosphorus Magnesium Total Bilirubin Direct Bilirubin AST ALT Alkaline Phosphatase Total Protein Albumin Globulin Albumin/Globulin Ratio 12/29/17 12/29/17 12/29/17 06:25 06:25 06:25 WBC 10.7 RBC 3.67 Hgb 10.5 L Hct 33.1 L MCV 90.2 MCH 28.6 MCHC 31.7 RDW 14.7 H Plt Count 159 MPV 12.0 H Gran % 79.3 H Lymph % (Auto) 13.0 L [place] % (Auto) 7.1 H Eos % (Auto) 0.6 L Baso % (Auto) 0.0 Gran # 8.50 H Lymph # (Auto) 1.4 [place] # (Auto) 0.8 H Eos # (Auto) 0.1 Baso # (Auto) 0.00 PT 12.2 INR 1.06 APTT 27.8 pCO2 pO2 HCO3 ABG pH ABG Total CO2 ABG O2 Saturation ABG O2 Content ABG Base Excess ABG Hemoglobin ABG Carboxyhemoglobin POC ABG HHb (Measured) ABG Methemoglobin ABG O2 Capacity Hgb O2 Saturation FiO2 Sodium 144 Potassium 3.3 L Chloride 102 Carbon Dioxide 37 H Anion Gap 8 L BUN 12 Creatinine 0.3 L Est GFR ( Amer) > 60 Est GFR (Non-Af Amer) > 60 POC Glucose (mg/dL) Random Glucose 128 H Calcium 7.8 L Phosphorus 1.8 L Magnesium 2.0 Total Bilirubin 0.3 Direct Bilirubin 0.0 AST 20 ALT 40 Alkaline Phosphatase 53 Total Protein 5.2 L Albumin 2.8 L Globulin 2.4 Albumin/Globulin Ratio 1.2 12/29/17 12/29/17 06:26 11:28 WBC RBC Hgb Hct MCV MCH MCHC RDW Plt Count MPV Gran % Lymph % (Auto) [place] % (Auto) Eos % (Auto) Baso % (Auto) Gran # Lymph # (Auto) [place] # (Auto) Eos # (Auto) Baso # (Auto) PT INR APTT pCO2 pO2 HCO3 ABG pH ABG Total CO2 ABG O2 Saturation ABG O2 Content ABG Base Excess ABG Hemoglobin ABG Carboxyhemoglobin POC ABG HHb (Measured) ABG Methemoglobin ABG O2 Capacity Hgb O2 Saturation FiO2 Sodium Potassium Chloride Carbon Dioxide Anion Gap BUN Creatinine Est GFR ( Amer) Est GFR (Non-Af Amer) POC Glucose (mg/dL) 138 H 119 H Random Glucose Calcium Phosphorus Magnesium Total Bilirubin Direct Bilirubin AST ALT Alkaline Phosphatase Total Protein Albumin Globulin Albumin/Globulin Ratio Critical Care Progress Note - Nutrition Nutrition: Nutrition Category Date Time Status NPO Diet [DIET] Diets 12/23/17 Lunch Ordered Attending/Attestation - Attestation I have personally seen and examined this patient.: Yes I have fully participated in the care of the patient.: Yes I have reviewed all pertinent clinical information: Yes Notes (Text): 12/29/17 12:43 The patient was seen and examined at the bedside. Patient care was discussed with resident Medical records, lab studies, and imaging were reviewed and management issues were discussed and formulated. Last 24H events reviewed. Agree with above treatment plans as outlined in 's note with addition of the following: Respiratory Failure \ Hypoxemia \ Hypercapnea \ COPD \ PNA \ Sepsis -hemodynamic monitoring to maintain MAP>65 -mechanical ventilation and o2 supplementation to maintain Spo2>90 Pao2>60 -monitor for TV 6ml\kg IBW and plateau pressure <30 -Pt is on PS 10 plus 5 Peep weaning trial -pt had multiple weaning trial and extubation attempt failures and likely requires tracheostomy -continue nebs and taper steroids -continue Abx as per ID team and f\u cultures -f\u Bun\Cr and U\o; monitor and replace e-lites -tube feed diet and aspiration precautions -ENT team following for tracheostomy tomorrow -DVT \ PUD prophylaxis CCM f\u 35min
--- NOTE | 2017-12-29 13:21 | CP.PCM.PN ---
Subjective - Date & Time of Evaluation Date of Evaluation: 12/29/17 Time of Evaluation: 09:50 - Subjective Subjective: Patient is still on the ventilator but is awake and alert, no fevers. Objective - Vital Signs/Intake and Output Vital Signs (last 24 hours): Temp Pulse Resp BP Pulse Ox 98.2 F 77 24 104/63 100 12/29/17 04:00 12/29/17 07:00 12/28/17 07:20 12/29/17 07:00 12/29/17 07:00 Intake and Output: 12/29/17 12/29/17 06:59 18:59 Intake Total 995 Output Total 350 Balance 645 - Medications Medications: Current Medications Acetaminophen (Tylenol 650 Mg Supp) 650 mg RC Q6H PRN PRN Reason: TEMP>=99.5F Last Admin: 12/17/17 08:30 Dose: 650 mg Amiodarone HCl (Cordarone) 200 mg PO Q12 [facility] Last Admin: 12/28/17 21:55 Dose: 200 mg Aspirin (Aspirin) 325 mg PO DAILY [facility] Last Admin: 12/28/17 09:49 Dose: 325 mg Atorvastatin Calcium (Lipitor) 10 mg PO DIN [facility] Last Admin: 12/28/17 17:23 Dose: 10 mg Budesonide (Pulmicort Respules) 1 mg IH [id number] [facility] Last Admin: 12/28/17 20:52 Dose: 1 mg Doxycycline Hyclate (Doryx) 100 mg PO Q12 [facility] Last Admin: 12/28/17 21:29 Dose: 100 mg Enoxaparin Sodium (Lovenox) 40 mg SC DAILY [facility] PRN Reason: Protocol Last Admin: 12/28/17 09:49 Dose: 40 mg Ergocalciferol (Drisdol 50,000 Intl Units Cap) 1 cap PO Q7D [facility] Last Admin: 12/27/17 10:03 Dose: Not Given Hydralazine HCl (Apresoline) 10 mg IVP Q6 PRN PRN Reason: Systolic Blood Pressure Last Admin: 12/23/17 14:30 Dose: 10 mg Hydrocortisone Sodium Succinate (Solu-Cortef) 25 mg IVP DAILY [facility] Vancomycin HCl (Vancomycin 1gm) 1 gm in 250 mls @ 167 mls/hr IVPB Q12 KRISTINE PRN Reason: Protocol Last Admin: 12/28/17 22:50 Dose: 167 mls/hr Cefepime HCl (Maxipime 2gm) 2 gm in 100 mls @ 100 mls/hr IVPB Q8 KRISTINE PRN Reason: Protocol Stop: 12/29/17 09:16 Last Admin: 12/29/17 06:37 Dose: 100 mls/hr Propofol (Diprivan) 1,000 mg in 100 mls @ 2.252 mls/hr IV .Q24H PRN; Protocol; 5 MCG/KG/MIN PRN Reason: TITRATE PER MD ORDER Last Admin: 12/28/17 03:19 Dose: 22.2 mcg/kg/min, 10 mls/hr Potassium Phosphate 15 mmole/ (Dextrose) 255 mls @ 42.5 mls/hr IVPB Q6H [facility] Stop: 12/29/17 19:59 Ipratropium [place] (Atrovent) 0.5 mg IH [id number] [facility] Last Admin: 12/29/17 07:40 Dose: 0.5 mg Ipratropium [place] (Atrovent) 0.5 mg IH Q2H PRN PRN Reason: Shortness of Breath Levalbuterol HCl (Xopenex) 0.63 mg IH Q2 PRN PRN Reason: Shortness of Breath Levalbuterol HCl (Xopenex) 0.63 mg IH 0200,0800,1400,2000 [facility] Last Admin: 12/29/17 07:40 Dose: 0.63 mg Ondansetron HCl (Zofran Inj) 4 mg IVP Q4H PRN PRN Reason: Nausea/Vomiting Pantoprazole Sodium (Protonix Inj) 40 mg IVP Q12 [facility] Last Admin: 12/28/17 21:29 Dose: 40 mg Polyethylene Glycol (Miralax) 17 gm PO DAILY [facility] Last Admin: 12/28/17 09:48 Dose: 17 gm - Labs Labs: 12/29/17 06:25 12/29/17 06:25 PT 12.2 SECONDS (9.4-12.5) 12/29/17 06:25 INR 1.06 (0.93-1.08) 12/29/17 06:25 APTT 27.8 Seconds (25.1-36.5) 12/29/17 06:25 - Constitutional Appears: Chronically Ill, Other (intubated) - Head Exam Head Exam: NORMAL INSPECTION - ENT Exam Additional comments: ET tube in place - Respiratory Exam Respiratory Exam: Decreased Breath Sounds - Cardiovascular Exam Cardiovascular Exam: +S1, +S2 - GI/Abdominal Exam GI & Abdominal Exam: Soft. absent: Tenderness Assessment and Plan - Assessment and Plan (Free Text) Plan: Assessment Severe sepsis with ventilator-dependent respiratory failure due to left sided hospital-acquired pneumonia in this patient with acute COPD exacerbation, slowly improving COPD diastolic chronic CHF S/P hysterectomy obesity with BMI 31 Plan continue Vancomycin, Cefepime and Doxycycline day 7 to complete 4-7 days and will follow up blood and sputum cx; reviewed CT chest which shows left base patchy infiltrates; also reviewed Pulmonary evaluation and recommendations - will d/c antibiotics after today will continue to monitor clinically
--- NOTE | 2017-12-29 15:57 | PN ---
DATE: 12/29/2017 CARDIOLOGY FOLLOWUP SUBJECTIVE: The patient remains ventilator dependent. PHYSICAL EXAMINATION: VITAL SIGNS: Blood pressure 103/64 with heart rate is in the 70s. NECK: Negative JVD. LUNGS: Without rales. HEART: Reveals S1, S2. EXTREMITIES: Without edema. LABORATORY DATA: Hemoglobin is 10.5. Chemistries: BUN and creatinine are normal. Potassium is 3.3. IMPRESSION: 1. Respiratory failure. 2. Pneumonia. 3. Hypertension. 4. Anemia. 5. Unremarkable coronary arteries. PLAN: Given these findings, the patient is scheduled for tracheostomy tomorrow. Marcelo Parry MD
--- NOTE | 2017-12-30 01:21 | PN ---
DATE: 12/29/2017 SUBJECTIVE: The patient is seen in room ICU, bed 3. The patient is lying in the bed. The patient is presently being evaluated by the sales vice president with the patient's son present at the bedside. The patient is awake, responsive, still on ventilator with pressure support. PHYSICAL EXAMINATION: VITAL SIGNS: T-max 99.2. Telemetry shows sinus rhythm, heart rate 86, 83, 84, 87, 82; blood pressure in the last 24 hours 120/64, 111/67, 105/61, 111/65, 117/75; respirations 24, 25, 26, 29; O2 sat 99-100% on a vent. Intake/output: Output yesterday was 850. Today's output 650. HEENT: Head examination normocephalic, atraumatic. HEENT examination shows positive OG tube, positive ET tube. Pinkish pale conjunctivae. Anicteric sclerae. No oropharyngeal lesion. No neck rigidity. Mild thyromegaly noted. CARDIOVASCULAR: S1, S2. Regular rhythm. Positive systolic murmur, left sternal border, right second intercostal space, left second intercostal space. LUNGS: Shows positive rhonchi, upper lung bauer bilaterally. ABDOMEN: Soft. Positive bowel sound. GENITALIA: Female. RECTAL: Deferred. EXTREMITY: Shows positive SCDs. MUSCULOSKELETAL: Shows a body mass index of 24. NEUROLOGICAL: Neuro examination is limited. Cranial nerves II through XII limited. Gait examination could not be tested. VASCULAR: Palpable pulses. PSYCHIATRIC: Not applicable. DIAGNOSTICS: On 12/29/2017, WBC 10.7, hemoglobin and hematocrit 10.5 and 33.1, platelet 159. Granulocytes, 79% segs. PT/PTT 12.2, 27.8. ABG this morning: On 35% FiO2, pH of 7.46, pCO2 of 52, pO2 of 108, bicarb 37, saturation of 99.7. Sodium 144, potassium 3.3, chloride 102, CO2 of 37, anion gap 8, BUN 12, creatinine 0.3, GFR greater than 60. Glucose 128, 138, 119, 136. Calcium 7.8, phosphorus 1.8, magnesium 2. LFTs are normal. Total protein 5.2, albumin 2.8. Hepatitis A, B, C serologies negative. Blood cultures, urine cultures, sputum cultures negative. MRSA cultures negative. The patient's chest x-ray from 12/29/2017 was reviewed. Chest x-ray continued to show some vascular congestion, bibasilar infiltrate. IMPRESSION AND PLAN: 1. Acute recurrent relapsing ventilator-dependent respiratory failure with respiratory acidosis and hypercarbia. 2. Transient episodic hypotension. 3. Ventilator-dependent respiratory failure. 4. Acute exacerbation of chronic obstructive pulmonary disease. 5. Acute recurrent relapsing dedeh-pp-[id number] hypercarbic hypoxic ventilator-dependent respiratory failure with hypoxemia, hypercarbia, carbon dioxide narcosis. 6. Normocytic anemia. 7. Leukopenia. 8. Granulocytosis. 9. Recurrent hypercarbia. 10. Hypokalemia, hypocalcemia, hypophosphatemia. 11. Questionable zde-KC-ltpzzkdco myocardial infarction with elevated troponin. 12. Mild protein malnutrition and mild hypoalbuminemia. 13. Bilateral multilobar bibasilar healthcare-associated versus ventilator-associated pneumonia with pulmonary vascular congestion. 14. Status post cardiac catheterization. 15. Left ventricular ejection fraction of 60% on cardiac catheterization. 16. 60-70% stenosis of the proximal diagonal 2 branch. 17. Moderate concentric left ventricular hypertrophy with grade 1 abnormal relaxation pattern. 18. Moderately dilated left atrium. 19. Moderately sclerotic aortic valve. 20. Moderately thickened mitral valve with moderate mitral regurgitation. 21. Severe sepsis with ventilator-dependent respiratory failure secondary to multilobar bilateral healthcare-associated versus ventilator-associated pneumonia. 22. Nonsustained ventricular tachycardia. 23. Refractory ventilator-dependent respiratory failure. 24. Hypovitaminosis D. 25. Dyslipidemia. 1. Severe sepsis with ventilator-dependent respiratory failure and bilateral multilobar healthcare-associated versus ventilator-associated bilateral pneumonia. 2. Low-grade fever. 3. Transient hypotension. 4. Normocytic anemia. 5. Hypokalemia. 6. Granulocytosis. 7. Hypocalcemia. 8. Mild to moderate protein malnutrition and mild to moderate hypoalbuminemia. 9. Bilateral multilobar healthcare-associated versus ventilator-associated pneumonia. 1. Acute relapsing recurrent hypercarbic hypoxic respiratory failure with respiratory acidosis and CO2 narcosis with multiple reintubation. 2. Hypotension. 3. Probably asymptomatic nonsustained ventricular tachycardia. 4. Ventilator-dependent respiratory failure. 5. Multilobar bilateral healthcare-associated versus ventilator-associated aspiration multilobar bilateral pneumonia and infiltrate and pleural effusion. 6. A 0.3 cm right upper lobe nodule. 7. History of hypertension. 8. Status post uncontrolled hypertension. 9. Hypothyroidism. 10. History of dyslipidemia. 11. History of poor compliance. 12. Questionable qbp-VI-aaiyebboj myocardial function with elevated troponin. 13. Status post cardiac catheterization. 14. Nonobstructive coronary artery disease. 1. Acute recurrent ventilator dependent respiratory failure with respiratory acidosis, hypercapnic hypercarbic respiratory failure. 2. Multilobar bilateral pneumonia, healthcare-associated pneumonia versus ventilator-associated pneumonia. 3. Transient hypotension. 4. Ventilator-dependent respiratory failure. 5. Leukopenia and leukocytosis. 6. Granulocytosis. 7. Normocytic anemia. 8. Transaminitis. 9. Hypertensive cardiovascular disease with left ventricular hypertrophy. 10. Pleural effusion. 11. Pulmonary vascular congestion and congestive heart failure. 1. Recurrent relapsing acute ventilator-dependent hypoxic hypercarbic respiratory failure with severe respiratory acidosis. 2. Questionable non-ST elevation myocardial infarction with elevated troponin. 3. Status post cardiac catheterization. 4. Left ventricle ejection fraction of 60%. 5. 60 to 70% stenosis of the proximal portion of the second diagonal vessel. 6. Bibasilar bilateral multilobar possible aspiration versus ventilator-dependent pneumonia and pleural effusion. 7. Cardiomegaly. 8. Mild pulmonary vascular congestion. 9. Acute exacerbation of chronic obstructive pulmonary disease with reintubation secondary to recurrent relapsing acute hypoxic, hypercapnic respiratory failure with CO2 narcosis and hypercapnia. 10. Possible non-ST elevation myocardial infarction. 11. Severe sepsis with ventilator-dependent respiratory failure and bibasilar bilateral multilobar healthcare-associated versus ventilator-associated pneumonia with acute exacerbation of chronic obstructive pulmonary disease. 12. Possible diastolic congestive heart failure. 13. Low-grade fever. 14. Tachycardia. 15. Tachypnea. 16. Leukocytosis with leukopenia and normocytic anemia. 17. Granulocytosis. 18. Hypokalemia. 19. Hypomagnesemia. 20. Hypocalcemia. 21. Mild oropharyngeal dysphagia with gnx-gk-yyzfqovl risk for aspiration due to minimal fatigue, minimal oral residue, missing teeth, and multiple swallows needed per single bolus. 22. Hypothyroidism. 23. History of hypertension. 24. Hypovitaminosis D. 25. Hyperlipidemia. 26. Inotropic, pressor-dependent hypotension. 27. Toxic metabolic encephalopathy secondary to hypercarbia, hypoxemia, and respiratory acidosis. 1. Recurrent acute relapsing hypoxic hypercarbic hypercapnic respiratory failure, ventilator requiring and ventilator-dependent. 2. Ventilator-dependent and ventilator-requiring hypoxic and hypercarbic respiratory failure with carbon dioxide narcosis and hypoxemia and confusion and obtundation. 3. Hypotension. 4. Transient uncontrolled hypertension and hypertensive urgency. 5. Leukocytosis with granulocytosis. 6. Normocytic anemia. 7. Severe respiratory acidosis. 8. Ventilator-dependent respiratory failure. 9. Hypokalemia. 10. Questionable acute lqj-SU-przskrafl myocardial infarction with elevated troponin. 11. Transaminitis. 12. Healthcare-associated, ventilator-dependent multilobar bilateral pneumonia with volume loss and minimal right apical scarring. 13. Right upper lobe nodule. 14. Cardiomegaly. 15. Thyromegaly with thyroid calcification. 16. Degenerative joint disease of the spine. 17. T11-T12 subacute compression deformity. 18. Left lower chest and left upper anterior abdominal wall lipoma. 19. Adrenal gland hypertrophy. 20. Feeding dysfunction. 21. Status post left internal jugular triple-lumen catheter central line placement. 22. Questionable lateral ischemic changes on the EKG with left ventricular hypertrophy. 23. Severe sepsis with ventilator-dependent respiratory failure secondary to bilateral multilobar healthcare-associated versus ventilator-dependent pneumonia. 24. Acute exacerbation of chronic obstructive pulmonary disease. 25. Hypovitaminosis D. 26. Dyslipidemia. 27. History of constipation. 1. Questionable and possible steroid versus ICU psychosis with episodic confusion. 2. Acute exacerbation of chronic obstructive pulmonary disease. 3. Status post ventilator-dependent acute hypoxic hypercarbic respiratory failure. 4. Severe respiratory acidosis. 5. Uncontrolled hypertension. 6. Transient tachycardia. 7. Tachypnea. 8. Hypoxemia. 9. Transient leukopenia. 10. Granulocytosis. 11. Severe respiratory acidosis with hypercarbia, hypercapnia and CO2 narcosis with hypoxemia. 12. Refractory acute exacerbation of jvdgn-pb-lbuqhnv hypoxic hypercarbic respiratory failure with refractory slow resolving respiratory acidosis. 13. Metabolic alkalosis. 14. Steroid-induced hyperglycemia. 15. Transaminitis. 16. Hypovitaminosis D. 17. Acute exacerbation of chronic obstructive pulmonary disease with hyperinflation. 18. Questionable and possible ICU versus steroid psychosis. 1. Status post ventilator-dependent respiratory failure secondary to acute hypoxic hypercarbic respiratory failure with respiratory acidosis. 2. Acute exacerbation of chronic obstructive pulmonary disease. 3. Recurrent wsrhy-dv-mnubrip hypoxic hypercarbic respiratory failure with persistent hypercarbia and hypoxemia and respiratory acidosis. 4. Tachycardia. 5. Uncontrolled hypertension. 6. Tachypnea. 7. Hypoxemia. 8. Leukopenia. 9. Granulocytosis. 10. Persistent recurrent uinft-af-hzoedcr and acute recurrent hypoxic hypercarbic respiratory failure with respiratory acidosis. 11. Metabolic alkalosis. 12. Hyperglycemia. 13. Transaminitis. 14. Hypovitaminosis D. 15. Non-hemolyzed hyperkalemia. 16. Constipation. 17. Hypothyroidism. 18. Mild oropharyngeal dysphagia with cgr-fd-efgdvbdt aspiration risk secondary to minimal fatigue, minimal oral residue and missing teeth. 1. Acute exacerbation of chronic obstructive pulmonary disease. 2. Relapsing recurrent hypercarbia and respiratory acidosis. 3. Mild normocytic anemia with granulocytosis. 4. Non-hemolyzed hyperkalemia. 5. Metabolic alkalosis with rising pCO2. 6. Hyperglycemia. 7. Transaminitis. 8. Hypovitaminosis D. 9. Chronic obstructive pulmonary disease with pulmonary hyperinflation. 10. Left ventricular hypertrophy with repolarization abnormalities and possible anterior ischemic changes on the EKG. 11. Status post ventilator dependent. 12. Acute hypoxic hypercarbic respiratory failure with respiratory acidosis. 13. Acute exacerbation of chronic obstructive pulmonary disease with acute hypoxic respiratory failure with hypercapnia. 14. Acute exacerbation of chronic obstructive pulmonary disease with acute ventilator respiratory failure with hypercapnia. 15. Hypertensive cardiovascular disease with ejection fraction of 68%. 16. Concentric left ventricular hypertrophy with grade I abnormal relaxation patterns. 17. Moderately sclerotic aortic valve. 18. Moderate mitral regurgitation with moderately thickened mitral valve. 19. Trace tricuspid regurgitation. 1. Acute ventilator-dependent acute hypercarbic, hypoxemic respiratory failure and carbon dioxide narcosis. 2. Hypertension. 3. Persistent recurrent, refractor hypercarbia and mild respiratory acidosis. 4. Tachypnea. 5. Hypertension. 6. Mild normocytic anemia. 7. Granulocytosis. 8. Mild non-hemolyzed hyperkalemia. 9. Prerenal kidney injury. 10. Hyperglycemia. 11. Transaminitis. 12. Hypovitaminosis D. 13. Left ventricular ejection fraction of 68% with concentric left ventricular hypertrophy and grade 1 abnormal relaxation pattern. 14. Moderately dilated left atrium. 15. Moderately sclerotic aortic valve. 16. Moderately thickened mitral valve with moderate mitral regurgitation. 17. Hyperlipidemia. 18. Constipation. 1. Acute hypercarbic hypoxic respiratory failure with respiratory acidosis and hypercarbia and carbon dioxide narcosis. 2. Acute exacerbation of chronic obstructive pulmonary disease. 3. Acute ventilator-dependent hypercarbic hypercapnic hypoxic respiratory failure with severe respiratory acidosis. 4. Bronchospasm. 5. Severe acute exacerbation of chronic obstructive pulmonary disease. 6. Tachycardia. 7. Tachypnea. 8. Fever. 9. Febrile illness. 10. Questionable systemic inflammatory response syndrome. 11. Mild normocytic anemia. 12. Granulocytosis. 13. Recurrent hypercarbia and hypercapnia with mild respiratory acidosis and recurrent respiratory acidosis. 14. Prerenal kidney injury. 15. Transaminitis. 16. Hypovitaminosis D. 17. History of hypothyroidism. 18. Left ventricular ejection fraction of 68%. 19. Moderate concentric left ventricular hypertrophy. 20. Grade 1 abnormal relaxation pattern. 21. Moderately dilated left atrium. 22. Moderately sclerotic aortic valve. 23. Moderately thickened mitral valve with moderate mitral regurgitation. 24. Mild oropharyngeal dysphagia with low to moderate risk for aspiration due to minimal fatigue, minimal oral residue, missing teeth and multiple swallows. 25. History of hyperlipidemia. 1. Status post acute ventilator dependent hypercarbic hypoxic respiratory failure with carbon dioxide narcosis and respiratory acidosis. 2. Status post extubation. 3. Hypertension. 4. Mild normocytic anemia with granulocytosis. 5. Acute hypercarbic hypoxic ventilator-dependent respiratory failure, status post extubation with respiratory acidosis, hypercarbia and carbon dioxide narcosis. 6. Prerenal kidney injury. 7. Transaminitis. 8. Hypovitaminosis D. 9. Hypertensive cardiovascular disease with repolarization abnormalities. 10. Left ventricular ejection fraction of 68%. 11. Moderate concentric left ventricular hypertrophy with grade 1 abnormal relaxation pattern. 12. Moderately dilated left atrium. 13. Moderately sclerotic aortic valve. 14. Moderately thickened mitral valve with moderate mitral regurgitation. 15. Trace tricuspid regurgitation. 16. Carbon dioxide narcosis. 17. Acute exacerbation of severe chronic obstructive pulmonary disease. 18. History of hypothyroidism. 19. History of pulmonary hypertension. 20. High-grade fever of 101 degrees Fahrenheit. 21. Deconditioning. 22. Gait dysfunction. 23. History o hyperlipidemia. 24. History of constipation. 25. History of hypovitaminosis D. 1. Acute hypercarbic hypercapnic hypoxic ventilator-dependent respiratory failure with severe respiratory acidosis. 2. Resolving bronchospasm. 3. Fever of 100.8. 4. Mild normocytic anemia. 5. Granulocytosis. 6. Hypercarbia. 7. CO2 narcosis. 8. Transaminitis. 9. History of hypothyroidism. 10. Hypertensive cardiovascular disease with T-wave inversion I, aVL, V1 to V6. 11. Borderline hypokalemia. 1. Ventilator-dependent acute hypercarbic hypercapnic hypoxic respiratory failure with severe respiratory acidosis. 2. Bronchospasm. 3. Acute exacerbation of chronic obstructive pulmonary disease. 4. Normocytic anemia with granulocytosis. 5. Hypercarbia and hypercapnia. 6. Carbon dioxide narcosis. 7. Severe respiratory acidosis and hypoxemia. 8. Metabolic alkalosis. 9. Hyperglycemia. 10. Transaminitis. 11. Mild acute exacerbation of right-sided diastolic congestive heart failure with elevated BNP. 12. Indeterminate troponin. 13. Sinus tachycardia. 14. Left axis deviation. 15. Ventilator-dependent respiratory failure. 16. History of hypertension, hyperlipidemia, hypothyroidism, hypovitaminosis D. 17.Mild oropharyngeal dysphagia with gvr-ln-nhjwtkre risk for aspiration due to minimal fatigue, minimal oral residue, missing teeth and multiple swallows needed per single bolus Plan at this time, the patient is seen by the surgical team. The patient is scheduled for tracheostomy tomorrow. The patient's family including the daughter and the son are in agreement with the tracheostomy placement. The patient has been ordered repeat labs. The patient's potassium and K-Phos ordered. Current medications: Hydralazine 10 mg IV every 6 p.r.n., aspirin 325 daily, Atrovent nebulizer 0.5 mg every 6 hours and every 2 hours p.r.n., amiodarone 200 mg every 12, doxycycline 100 p.o. every 12, Drisdol 50,000 weekly, Lipitor 10 mg daily, Lovenox 40 mg subcu daily, MiraLax 17 g daily. The patient is on Diprivan drip for sedation, Protonix 40 IV every 12, Pulmicort nebulizer 1 mg every 12, Solu-Cortef 25 mg IV daily, Tylenol p.r.n. suppository, Xopenex nebulizer 0.63 mg every 6 hours and every 2 hours p.r.n., Zofran 4 mg IV every four. Repeat chest x-ray ordered. The patient's family met with the Director Of State regarding discharge planning. The patient's daughter is requesting the patient to be transferred to [facility], long-term acute care hospital after tracheostomy and gastrostomy. The patient is to be continued in ICU setting. Prognosis guarded. Condition critical. Time spent more than 35 minutes. Dictated and electronically signed, not read. Garett Rodríguez MD M[facility]
[2017-12-30] MEDS: Levalbuterol 0.63 MG/3 ML Inhal Soln UD IH SCH ×4 (02:56→19:48)
[2017-12-30] MEDS: Ipratropium 0.02% Inhal Soln (0.5 mg/2.5 ml) UD IH SCH ×4 (02:56→19:49)
[2017-12-30 07:59] LABS: ARTERIAL BLOOD GAS HCO3 37.7 mmol/L (21-28); ARTERIAL BLOOD GAS O2 CAPACITY 20.6 mL/dl (16-24); ARTERIAL BLOOD GAS O2 CONTENT 20.6 ML/dl (15-23); ARTERIAL BLOOD GAS O2 SAT 99.9 % (95-98); ARTERIAL BLOOD GAS PCO2 53 mm/Hg (35-45); ARTERIAL BLOOD GAS PH 7.46 (7.35-7.45); ARTERIAL BLOOD GAS TCO2 39.3 mmol.L (22-28)
[2017-12-30 08:19] LABS: ALBUMIN 2.3 g/dL (3.0-4.8); ALT/SGPT 36 U/L (7-56); AST/SGOT 16 U/L (14-36); BILIRUBIN,DIRECT 0.2 mg/dL (0.0-0.4); BLOOD UREA NITROGEN 7 mg/dL (7-21); CALCIUM 6.7 mg/dL (8.4-10.5); GFR AFRICAN-AMERICAN > 60; GFR NON-AFRICAN AMERICAN > 60
--- NOTE | 2017-12-30 08:27 | PN ---
DATE: 12/30/2017(605am--700am) SUBJECTIVE: The patient appears comfortable this morning. She is not short of breath at the present time. She is currently on PRVC. OBJECTIVE: VITAL SIGNS: Temperature is 98.2, pulse 81, respirations 17/15, blood pressure 107/69. HEENT: Normocephalic, atraumatic. No JVD. CARDIOVASCULAR: Systolic ejection murmur at the lower left sternal border. No S3 gallop. LUNGS: Decreased breath sounds at the bases. Minimal rhonchi bilaterally. No wheezing. EXTREMITIES: No clubbing, cyanosis or edema. Calves are nontender to palpation. GI: Abdomen is soft, nontender and nondistended. Bowel sounds are positive. SKIN: No acute rash. NEUROLOGIC: Exam limited at the present time. PERTINENT LABORATORY DATA: Chest x-ray was done this morning and reviewed. Again, it is a poor film with considerable artifact. It does not appear significantly changed from yesterday's film. Arterial blood gas was ordered for this morning - pending. IMPRESSION: 1. Recurrent respiratory failure. 2. Left lower lobe pneumonia. 3. Sepsis syndrome. 4. Mild anemia. 5. Positive troponin. PLAN: The patient remains intubated. She is awake and alert. She is currently on PRVC. I did discuss the case with the night nurse at length. Apparently, during the last shift, the patient began to tire and was placed back on PRVC. She is for tracheostomy this morning. I did review the chest x-ray as above. Again, there is considerable artifact on today's film, but I do not appreciate a significant change. Arterial blood gas has been ordered. The results are not in the computer at the present time. On physical exam, there is only minimal bronchospasm noted. I will continue with the current nebulizer treatments and inhaled steroids for now. I would continue with the antibiotic coverage as per Infectious Disease. Input by Dr. Francisco is noted. The temperatures have fully resolved. The leukocytosis has also resolved. Clinical status of the patient is significantly improved - compared to last week. However, again, her future status/prognosis does remain very guarded. I will discuss the above with the entire ICU team in the next few moments. I will also discuss the above with Dr. Rodríguez later this morning. Edin Aguila MD MTDBrandy
[2017-12-30] MEDS: Budesonide 0.5 mg/2 ml Inhal Susp UD IH SCH ×2 (08:41→19:48)
[2017-12-30] MEDS ORDERED: Potassium Phosphate 15 MMOLE in Sodium Chloride 0.9% 250 ML IVPB ONE (08:48)
[2017-12-30] MEDS ORDERED: Potassium Chloride 40 mEq/30 ml LIQ UD PO ONE (09:00)
[2017-12-30] MEDS: Potassium & Sodium Phosphate PO SCH ×4 (09:23→21:50)
[2017-12-30] MEDS: POLYETHYLENE GLYCOL 3350 17 GM/Dose PACKET PO SCH (09:23)
--- NOTE | 2017-12-30 09:59 | CP.PCM.PN ---
<JaimeNu - Last Filed: 12/30/17 12:14> Subjective - Date & Time of Evaluation Date of Evaluation: 12/30/17 Time of Evaluation: 09:58 - Subjective Subjective: Medicine Progress Note - Dr Rodríguez Service Patient seen and examined at bedside. Per nursing no acute events overnight. Patient is NPO for tracheostomy this afternoon. Tube feeds and Lovenox on hold. Offering no complaints at this time. ROS not obtained. Objective - Vital Signs/Intake and Output Vital Signs (last 24 hours): Temp Pulse Resp BP Pulse Ox 98.9 F 76 16 86/55 L 100 12/30/17 08:00 12/30/17 08:13 12/30/17 08:00 12/30/17 08:00 12/30/17 08:00 Intake and Output: 12/30/17 12/30/17 06:59 18:59 Intake Total 1470 Output Total 1150 Balance 320 - Medications Medications: Current Medications Acetaminophen (Tylenol 650 Mg Supp) 650 mg RC Q6H PRN PRN Reason: TEMP>=99.5F Last Admin: 12/17/17 08:30 Dose: 650 mg Amiodarone HCl (Cordarone) 200 mg PO Q12 [facility] Last Admin: 12/30/17 09:23 Dose: 200 mg Aspirin (Aspirin) 325 mg PO DAILY [facility] Last Admin: 12/30/17 09:24 Dose: 325 mg Atorvastatin Calcium (Lipitor) 10 mg PO DIN [facility] Last Admin: 12/29/17 18:20 Dose: 10 mg Budesonide (Pulmicort Respules) 1 mg IH [id number] [facility] Last Admin: 12/30/17 08:41 Dose: 1 mg Enoxaparin Sodium (Lovenox) 40 mg SC DAILY [facility] PRN Reason: Protocol Last Admin: 12/29/17 09:34 Dose: 40 mg Ergocalciferol (Drisdol 50,000 Intl Units Cap) 1 cap PO Q7D [facility] Last Admin: 12/27/17 10:03 Dose: Not Given Hydralazine HCl (Apresoline) 10 mg IVP Q6 PRN PRN Reason: Systolic Blood Pressure Last Admin: 12/23/17 14:30 Dose: 10 mg Hydrocortisone Sodium Succinate (Solu-Cortef) 25 mg IVP DAILY [facility] Last Admin: 12/30/17 09:23 Dose: 25 mg Propofol (Diprivan) 1,000 mg in 100 mls @ 2.252 mls/hr IV .Q24H PRN; Protocol; 5 MCG/KG/MIN PRN Reason: TITRATE PER MD ORDER Last Admin: 12/28/17 03:19 Dose: 22.2 mcg/kg/min, 10 mls/hr Potassium Phosphate 15 mmole/ (Sodium Chloride) 255 mls @ 42.5 mls/hr IVPB ONCE ONE Stop: 12/30/17 14:47 Last Admin: 12/30/17 09:21 Dose: 42.5 mls/hr Potassium Chloride (Potassium Chloride 20 Meq/100 Ml) 20 meq in 100 mls @ 50 mls/hr IVPB STAT STA Stop: 12/30/17 10:59 Last Admin: 12/30/17 09:19 Dose: 50 mls/hr Calcium Gluconate 1,000 mg/ (Sodium Chloride) 110 mls @ 110 mls/hr IVPB ONCE ONE Stop: 12/30/17 10:14 Ipratropium [place] (Atrovent) 0.5 mg IH [id number] [facility] Last Admin: 12/30/17 08:39 Dose: 0.5 mg Ipratropium [place] (Atrovent) 0.5 mg IH Q2H PRN PRN Reason: Shortness of Breath Levalbuterol HCl (Xopenex) 0.63 mg IH Q2 PRN PRN Reason: Shortness of Breath Levalbuterol HCl (Xopenex) 0.63 mg IH 0200,0800,1400,2000 [facility] Last Admin: 12/30/17 08:42 Dose: 0.63 mg Ondansetron HCl (Zofran Inj) 4 mg IVP Q4H PRN PRN Reason: Nausea/Vomiting Pantoprazole Sodium (Protonix Inj) 40 mg IVP Q12 [facility] Last Admin: 12/30/17 09:22 Dose: 40 mg Polyethylene Glycol (Miralax) 17 gm PO DAILY [facility] Last Admin: 12/30/17 09:23 Dose: 17 gm Potassium Phos/Sodium Phos (Neutra-Phos) 1 pkt PO QID [facility] Stop: 12/31/17 22:01 Last Admin: 12/30/17 09:23 Dose: 1 pkt - Labs Labs: 12/29/17 06:25 12/30/17 06:15 PT 12.2 SECONDS (9.4-12.5) 12/29/17 06:25 INR 1.06 (0.93-1.08) 12/29/17 06:25 APTT 27.8 Seconds (25.1-36.5) 12/29/17 06:25 - Additional Findings Additional findings: - Constitutional Appears: Well, No Acute Distress - Head Exam Head Exam: ATRAUMATIC, NORMAL INSPECTION, NORMOCEPHALIC - Eye Exam Eye Exam: EOMI, Normal appearance - ENT Exam ENT Exam: Mucous Membranes Moist Additional comments: +ETT tube, OGT tube - Respiratory Exam Respiratory Exam: Decreased Breath Sounds, NORMAL BREATHING PATTERN. absent: Rhonchi, Wheezes - Cardiovascular Exam Cardiovascular Exam: REGULAR RHYTHM, +S1, +S2 - GI/Abdominal Exam GI & Abdominal Exam: Soft. absent: Guarding, Rigid, Tenderness - Extremities Exam Extremities Exam: Normal Inspection - Neurological Exam Neurological Exam: Alert, Awake - Psychiatric Exam Psychiatric exam: Normal Affect, Normal Mood - Skin Skin Exam: Dry, Normal Color, Warm Assessment and Plan - Assessment and Plan (Free Text) Assessment: A/P: Patient is a 72 yo AA F with PMH of COPD (with prior intubations for exacerbations), asthma, HTN, and pulmonary HTN who presented to [facility] with worsening shortness of breath, found to be in hypercarbic respiratory failure, failing Bipap in ED, then intubated and placed on mechanical ventilation. She is s/p extubation. Patient was re-intubated 2/2 to respiratory acidosis and hypercarbia. Intubated and off sedation at this time. For trach today with ENT. Plan: Acute exacerbation of COPD with Acute Hypoxic respiratory failure with hypercapnea -Intubated and off sedation -Pt had multiple weaning trial and extubation attempt failures and likely requires tracheostomy -Patient is for trach this afternoon -CT head showed non specific white matter changes (see full report) -CT chest showed bibasilar atelectasis, possible left lung infiltrate, superimposed pneumonia cannot be excluded (see full report) -Steroids discontinued -Xopenex and Ipratroprium Q6H [facility], Q2H PRN SOB -Budesanide 1mg Q12H [facility] -Tube feeds on hold, aspiration precautions -Pulmonary on consult, help appreciated -ENT on consult, help appreciated Severe Sepsis 2/2 HCAP -Intubated and off sedation -Leukocytosis resolved -S/P Antibiotics: Doxycycline 100mg Q12, Vancomycin 1gm Q12H, Cefepime 2gm Q8H -Patient completed course of antibiotics; discontinued at this time -Blood cultures showing no growth x 5 days -Urine cultures showing no growth, sputum cultures no growth -ID on consult, help appreciated Altered Mental Status (improved) -Intubated and off sedation -Likely due to Toxic metabolic encephalopathy 2/2 chronic CO2 retention -Head CT showed non specific white matter changes (see full report) -Neurology on consult, help appreciated -MRI of brain ordered Elevated Blood Pressures -Currently normatensive -Continue to monitor Relapsing recurrent hypercarbia and respiratory acidosis -Intubated and off sedation -ABG reviewed this morning -Continue to Monitor daily ABGs -Pulmonary on consult, help appreciated Elevated Troponin, SVT -Troponin 0.30 -> 0.16 -Concern for possible NSTEMI -Cardiac cath showed no acute findings -Patient went into SVT over the weekend -Started on Amiodarone 200mg Q12H -Cardiology on consult, help appreciated Diastolic CHF, Moderate Mitral Regurgitation -Echo showed normal LVEF with Moderate Mitral Regurgitation -Cardiology consulted, help appreciated -Continue ASA and Lipitor Transaminitis -LFTs normalized, Hep panel negative -Will continue to monitor Hypokalemia -Potassium 3.1 today -Repleted potassium phosphate -Continue to monitor Hypophosphatemia -Phos 1.8 today -Repleted with potassium phosphate -Will continue to monitor Hypocalcemia -Calcium 6.7 -Repleted with calcium gluconate Hypothyroidism -Continue Synthroid 50mcg daily Vitamin D Deficiency -Continue Ergocalciferol 1 tab PO Q7D GI/DVT ppx -Protonix 40mg Q12 IVP -Lovenox 40 SC daily (held for trach) Plan discussed with Dr Marcos Sandoval DO PGY-1 <Garett Rodríguez U - Last Filed: 12/30/17 15:33> Objective - Vital Signs/Intake and Output Vital Signs (last 24 hours): Temp Pulse Resp BP Pulse Ox 98.8 F 75 18 89/56 L 100 12/30/17 12:00 12/30/17 13:00 12/30/17 12:00 12/30/17 13:00 12/30/17 13:00 Intake and Output: 06/12/18 06/12/18 06:59 18:59 Intake Total 1470 Output Total 1150 Balance 320 - Medications Medications: Current Medications Acetaminophen (Tylenol 650 Mg Supp) 650 mg RC Q6H PRN PRN Reason: TEMP>=99.5F Last Admin: 12/17/17 08:30 Dose: 650 mg Amiodarone HCl (Cordarone) 200 mg PO Q12 [facility] Last Admin: 12/30/17 09:23 Dose: 200 mg Aspirin (Aspirin) 325 mg PO DAILY [facility] Last Admin: 12/30/17 09:24 Dose: 325 mg Atorvastatin Calcium (Lipitor) 10 mg PO DIN [facility] Last Admin: 12/29/17 18:20 Dose: 10 mg Budesonide (Pulmicort Respules) 1 mg IH [id number] [facility] Last Admin: 12/30/17 08:41 Dose: 1 mg Enoxaparin Sodium (Lovenox) 40 mg SC DAILY [facility] PRN Reason: Protocol Last Admin: 12/29/17 09:34 Dose: 40 mg Ergocalciferol (Drisdol 50,000 Intl Units Cap) 1 cap PO Q7D [facility] Last Admin: 12/27/17 10:03 Dose: Not Given Hydralazine HCl (Apresoline) 10 mg IVP Q6 PRN PRN Reason: Systolic Blood Pressure Last Admin: 12/23/17 14:30 Dose: 10 mg Propofol (Diprivan) 1,000 mg in 100 mls @ 2.252 mls/hr IV .Q24H PRN; Protocol; 5 MCG/KG/MIN PRN Reason: TITRATE PER MD ORDER Last Admin: 12/28/17 03:19 Dose: 22.2 mcg/kg/min, 10 mls/hr Ipratropium [place] (Atrovent) 0.5 mg IH [id number] [facility] Last Admin: 12/30/17 13:14 Dose: 0.5 mg Ipratropium [place] (Atrovent) 0.5 mg IH Q2H PRN PRN Reason: Shortness of Breath Levalbuterol HCl (Xopenex) 0.63 mg IH Q2 PRN PRN Reason: Shortness of Breath Levalbuterol HCl (Xopenex) 0.63 mg IH 0200,0800,1400,2000 [facility] Last Admin: 12/30/17 13:14 Dose: 0.63 mg Ondansetron HCl (Zofran Inj) 4 mg IVP Q4H PRN PRN Reason: Nausea/Vomiting Pantoprazole Sodium (Protonix Inj) 40 mg IVP Q12 [facility] Last Admin: 12/30/17 09:22 Dose: 40 mg Polyethylene Glycol (Miralax) 17 gm PO DAILY [facility] Last Admin: 12/30/17 09:23 Dose: 17 gm Potassium Phos/Sodium Phos (Neutra-Phos) 1 pkt PO QID [facility] Stop: 12/31/17 22:01 Last Admin: 12/30/17 09:23 Dose: 1 pkt - Labs Labs: 12/30/17 10:45 12/30/17 06:15 PT 13.3 SECONDS (9.4-12.5) H 12/30/17 10:45 INR 1.15 (0.93-1.08) H 12/30/17 10:45 APTT 28.1 Seconds (25.1-36.5) 12/30/17 10:45 Attending/Attestation - Attestation I have personally seen and examined this patient.: Yes I have fully participated in the care of the patient.: Yes I have reviewed all pertinent clinical information, including history, physical exam and plan: Yes Notes (Text): Please see/read my dictated notes.
--- NOTE | 2017-12-30 10:24 | RAD ---
HISTORY: f/u COMPARISON: 12/29/2017 FINDINGS: LUNGS: Evaluation limited due to obscuring of the lung apices by the patient's mandible. No pulmonary infiltrate. PLEURA: Small bilateral pleural effusion. No pneumothorax seen. CARDIOVASCULAR: Nasogastric tube and left IJ central venous catheter are unchanged. OSSEOUS STRUCTURES: No significant abnormalities. VISUALIZED UPPER ABDOMEN: Normal. OTHER FINDINGS: None. IMPRESSION: Small bilateral pleural effusion. Lines and tubes unchanged.
--- NOTE | 2017-12-30 10:52 | CP.PCM.PN ---
Subjective - Date & Time of Evaluation Date of Evaluation: 12/30/17 Time of Evaluation: 07:30 - Subjective Subjective: Patient seen and examined on rounds, lying comfortably in bed, doing well. No major complaints, awaiting tracheostomy today with ENT. Objective - Vital Signs/Intake and Output Vital Signs (last 24 hours): Temp Pulse Resp BP Pulse Ox 98.9 F 79 16 95/54 L 100 12/30/17 08:00 12/30/17 10:00 12/30/17 08:00 12/30/17 10:00 12/30/17 10:00 Intake and Output: 12/30/17 12/30/17 06:59 18:59 Intake Total 1470 Output Total 1150 Balance 320 - Medications Medications: Current Medications Acetaminophen (Tylenol 650 Mg Supp) 650 mg RC Q6H PRN PRN Reason: TEMP>=99.5F Last Admin: 12/17/17 08:30 Dose: 650 mg Amiodarone HCl (Cordarone) 200 mg PO Q12 [facility] Last Admin: 12/30/17 09:23 Dose: 200 mg Aspirin (Aspirin) 325 mg PO DAILY [facility] Last Admin: 12/30/17 09:24 Dose: 325 mg Atorvastatin Calcium (Lipitor) 10 mg PO DIN [facility] Last Admin: 12/29/17 18:20 Dose: 10 mg Budesonide (Pulmicort Respules) 1 mg IH [id number] [facility] Last Admin: 12/30/17 08:41 Dose: 1 mg Enoxaparin Sodium (Lovenox) 40 mg SC DAILY [facility] PRN Reason: Protocol Last Admin: 12/29/17 09:34 Dose: 40 mg Ergocalciferol (Drisdol 50,000 Intl Units Cap) 1 cap PO Q7D [facility] Last Admin: 12/27/17 10:03 Dose: Not Given Hydralazine HCl (Apresoline) 10 mg IVP Q6 PRN PRN Reason: Systolic Blood Pressure Last Admin: 12/23/17 14:30 Dose: 10 mg Hydrocortisone Sodium Succinate (Solu-Cortef) 25 mg IVP DAILY [facility] Last Admin: 12/30/17 09:23 Dose: 25 mg Propofol (Diprivan) 1,000 mg in 100 mls @ 2.252 mls/hr IV .Q24H PRN; Protocol; 5 MCG/KG/MIN PRN Reason: TITRATE PER MD ORDER Last Admin: 12/28/17 03:19 Dose: 22.2 mcg/kg/min, 10 mls/hr Potassium Phosphate 15 mmole/ (Sodium Chloride) 255 mls @ 42.5 mls/hr IVPB ONCE ONE Stop: 12/30/17 14:47 Last Admin: 12/30/17 09:21 Dose: 42.5 mls/hr Potassium Chloride (Potassium Chloride 20 Meq/100 Ml) 20 meq in 100 mls @ 50 mls/hr IVPB STAT STA Stop: 12/30/17 10:59 Last Admin: 12/30/17 09:19 Dose: 50 mls/hr Ipratropium [place] (Atrovent) 0.5 mg IH [id number] [facility] Last Admin: 12/30/17 08:39 Dose: 0.5 mg Ipratropium [place] (Atrovent) 0.5 mg IH Q2H PRN PRN Reason: Shortness of Breath Levalbuterol HCl (Xopenex) 0.63 mg IH Q2 PRN PRN Reason: Shortness of Breath Levalbuterol HCl (Xopenex) 0.63 mg IH 0200,0800,1400,2000 [facility] Last Admin: 12/30/17 08:42 Dose: 0.63 mg Ondansetron HCl (Zofran Inj) 4 mg IVP Q4H PRN PRN Reason: Nausea/Vomiting Pantoprazole Sodium (Protonix Inj) 40 mg IVP Q12 [facility] Last Admin: 12/30/17 09:22 Dose: 40 mg Polyethylene Glycol (Miralax) 17 gm PO DAILY [facility] Last Admin: 12/30/17 09:23 Dose: 17 gm Potassium Phos/Sodium Phos (Neutra-Phos) 1 pkt PO QID [facility] Stop: 12/31/17 22:01 Last Admin: 12/30/17 09:23 Dose: 1 pkt - Labs Labs: 12/29/17 06:25 12/30/17 06:15 PT 12.2 SECONDS (9.4-12.5) 12/29/17 06:25 INR 1.06 (0.93-1.08) 12/29/17 06:25 APTT 27.8 Seconds (25.1-36.5) 12/29/17 06:25 - Constitutional Appears: Non-toxic, No Acute Distress - Head Exam Head Exam: NORMAL INSPECTION - Eye Exam Eye Exam: Normal appearance - ENT Exam ENT Exam: Mucous Membranes Moist - Neck Exam Neck Exam: Full ROM - Respiratory Exam Respiratory Exam: Clear to Ausculation Bilateral, NORMAL BREATHING PATTERN - Cardiovascular Exam Cardiovascular Exam: REGULAR RHYTHM, +S1, +S2 - GI/Abdominal Exam GI & Abdominal Exam: Soft, Normal Bowel Sounds - Extremities Exam Extremities Exam: Normal Inspection - Back Exam Back Exam: NORMAL INSPECTION - Neurological Exam Neurological Exam: Alert, Awake - Psychiatric Exam Psychiatric exam: Normal Affect - Skin Skin Exam: Normal Color, Warm Assessment and Plan - Assessment and Plan (Free Text) Assessment: Patient is 72yo female with PMhx COPD (with prior intubations for exacerbations) , asthma, HTN, and pulmonary HTN, a/w hypercapnic resp failure. Currently afebrile, BP stable, comfortable in NAD, intubated, doing well ABG with chronic resp acisosis, compensated, normalized pH. Patient reintubated 3x on this admission, awaiting tracheostomy today with ENT COPD exacerbation Resp failure Pulm HTN Recommend: - supp o2, goal sat 90%, daily ABGs/CXR - pulmonary follow up - DC solucortef - abx as per ID - DC sedation - NPO - Duonebs PRN - BP control - GI ppx - DVT ppx - monitor in MICU - tracheostomy today with ENT
[2017-12-30 11:06] LABS: EOS # 0.1 (0.0-0.7); EOS % 1.7 % (1.5-5.0); GRAN # 6.56 (1.4-6.5); GRAN % 80.2 % (50.0-68.0); HEMOGLOBIN 10.2 g/dL (12.0-16.0); MEAN CELL VOLUME 90.9 fl (80.0-105.0); MEAN CORPUSCULAR HEMOGLOBIN 29.1 pg (25.0-35.0); MEAN PLATELET VOLUME 12.3 fl (7.0-11.0); MONO # 0.5 (0.1-0.6); MONO % 6.1 % (1.0-6.0); RBC 3.51 10^6/uL (3.5-6.1); RED CELL DISTRIBUTION WIDTH 14.6 % (11.5-14.5); WHITE BLOOD COUNT 8.2 10^3/ul (4.5-11.0)
[2017-12-30 11:26] LABS: INR 1.15 (0.93-1.08); PARTIAL THROMBOPLASTIN TIME 28.1 Seconds (25.1-36.5); PROTHROMBIN TIME 13.3 SECONDS (9.4-12.5)
--- NOTE | 2017-12-30 11:59 | CP.PCM.PN ---
Subjective - Date & Time of Evaluation Date of Evaluation: 12/30/17 Time of Evaluation: 09:05 - Subjective Subjective: Patient is for tracheostomy today, no fevers, awake and alert despite being on the ventilator. Objective - Vital Signs/Intake and Output Vital Signs (last 24 hours): Temp Pulse Resp BP Pulse Ox 98.2 F 81 24 107/69 99 12/29/17 04:00 12/30/17 01:00 12/28/17 07:20 12/30/17 01:00 12/30/17 01:00 Intake and Output: 12/29/17 12/30/17 18:59 06:59 Intake Total 1290 Output Total 650 Balance 640 - Medications Medications: Current Medications Acetaminophen (Tylenol 650 Mg Supp) 650 mg RC Q6H PRN PRN Reason: TEMP>=99.5F Last Admin: 12/17/17 08:30 Dose: 650 mg Amiodarone HCl (Cordarone) 200 mg PO Q12 [facility] Last Admin: 12/29/17 23:00 Dose: 200 mg Aspirin (Aspirin) 325 mg PO DAILY [facility] Last Admin: 12/29/17 09:37 Dose: 325 mg Atorvastatin Calcium (Lipitor) 10 mg PO DIN [facility] Last Admin: 12/29/17 18:20 Dose: 10 mg Budesonide (Pulmicort Respules) 1 mg IH [id number] [facility] Last Admin: 12/29/17 20:50 Dose: 1 mg Doxycycline Hyclate (Doryx) 100 mg PO Q12 [facility] Last Admin: 12/29/17 23:00 Dose: 100 mg Enoxaparin Sodium (Lovenox) 40 mg SC DAILY [facility] PRN Reason: Protocol Last Admin: 12/29/17 09:34 Dose: 40 mg Ergocalciferol (Drisdol 50,000 Intl Units Cap) 1 cap PO Q7D [facility] Last Admin: 12/27/17 10:03 Dose: Not Given Hydralazine HCl (Apresoline) 10 mg IVP Q6 PRN PRN Reason: Systolic Blood Pressure Last Admin: 12/23/17 14:30 Dose: 10 mg Hydrocortisone Sodium Succinate (Solu-Cortef) 25 mg IVP DAILY [facility] Last Admin: 12/29/17 09:34 Dose: 25 mg Propofol (Diprivan) 1,000 mg in 100 mls @ 2.252 mls/hr IV .Q24H PRN; Protocol; 5 MCG/KG/MIN PRN Reason: TITRATE PER MD ORDER Last Admin: 12/28/17 03:19 Dose: 22.2 mcg/kg/min, 10 mls/hr Ipratropium [place] (Atrovent) 0.5 mg IH [id number] [facility] Last Admin: 12/30/17 02:56 Dose: 0.5 mg Ipratropium [place] (Atrovent) 0.5 mg IH Q2H PRN PRN Reason: Shortness of Breath Levalbuterol HCl (Xopenex) 0.63 mg IH Q2 PRN PRN Reason: Shortness of Breath Levalbuterol HCl (Xopenex) 0.63 mg IH 0200,0800,1400,2000 [facility] Last Admin: 12/30/17 02:56 Dose: 0.63 mg Ondansetron HCl (Zofran Inj) 4 mg IVP Q4H PRN PRN Reason: Nausea/Vomiting Pantoprazole Sodium (Protonix Inj) 40 mg IVP Q12 [facility] Last Admin: 12/29/17 23:00 Dose: 40 mg Polyethylene Glycol (Miralax) 17 gm PO DAILY [facility] Last Admin: 12/29/17 09:37 Dose: 17 gm - Labs Labs: 12/29/17 06:25 12/29/17 06:25 PT 12.2 SECONDS (9.4-12.5) 12/29/17 06:25 INR 1.06 (0.93-1.08) 12/29/17 06:25 APTT 27.8 Seconds (25.1-36.5) 12/29/17 06:25 - Constitutional Appears: Other (intubated but awake and alert) - Head Exam Head Exam: NORMAL INSPECTION - ENT Exam Additional comments: ET tube in place - Respiratory Exam Respiratory Exam: Decreased Breath Sounds - Cardiovascular Exam Cardiovascular Exam: +S1, +S2 - GI/Abdominal Exam GI & Abdominal Exam: Soft. absent: Tenderness Assessment and Plan - Assessment and Plan (Free Text) Plan: Assessment S/P severe sepsis with ventilator-dependent respiratory failure due to left sided hospital-acquired pneumonia in this patient with acute COPD exacerbation COPD diastolic chronic CHF S/P hysterectomy obesity with BMI 31 Plan completed 7 days of Vancomycin, Cefepime and Doxycycline - will continue to monitor clinically off antibiotics since she is at risk for nosocomial infections for tracheostomy today
[2017-12-30] MEDS ORDERED: Lidocaine 1% w Epi 1:100,000 Inj ONE (12:54)
[2017-12-30] MEDS ORDERED: Rocuronium 10 mg/ml (5 ml) ONE (13:38)
[2017-12-30] MEDS ORDERED: Sevoflurane - Inhalation Anesthetic Liq (250 ml) ONE (14:27)
[2017-12-30] MEDS ORDERED: Glycopyrrolate 0.2 mg/ml (2ml vial) ONE (15:02)
[2017-12-30] MEDS ORDERED: Neostigmine Methylsulfate 3mg/3ml Syringe IV ONE (15:10)
--- NOTE | 2017-12-30 15:17 | PCM.SURG1 ---
Surgeon's Initial Post Op Note - Surgeon's Notes Surgeon: Dr. 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
[2017-12-30] MEDS: Morphine 2 mg/ml ISec IVP PRN ×2 (16:08→21:53)
[2017-12-30] MEDS: Dextrose 5%/0.9% NS 1,000 ML IV SCH (16:10)
--- NOTE | 2017-12-30 18:25 | RAD ---
HISTORY: s/p tracheostomy COMPARISON: 12/30/2017 FINDINGS: There has been interval tracheostomy with customary position of the tube in the mid trachea. The left IJV line terminates in the SVC. LUNGS: The lungs are well inflated and clear. PLEURA: Again seen is a left pleural effusion, no pneumothorax apparent. CARDIOVASCULAR: Normal. OSSEOUS STRUCTURES: No significant abnormalities. VISUALIZED UPPER ABDOMEN: Normal. OTHER FINDINGS: None. IMPRESSION: Interval tracheostomy. Left pleural effusion
[2017-12-31] MEDS: Dextrose 5%/0.9% NS 1,000 ML IV SCH ×3 (02:00→20:40)
[2017-12-31] MEDS: Ipratropium 0.02% Inhal Soln (0.5 mg/2.5 ml) UD IH SCH ×4 (02:06→20:30)
[2017-12-31] MEDS: Levalbuterol 0.63 MG/3 ML Inhal Soln UD IH SCH ×5 (02:07→20:30)
--- NOTE | 2017-12-31 03:06 | PN ---
DATE: 12/30/2017 SUBJECTIVE: Patient is seen in CCU, bed 3. Patient is still intubated on a vent. Patient is getting prepared for the tracheostomy later on this morning or afternoon. PHYSICAL EXAMINATION: VITAL SIGNS: T-max in the last 24 hour is 98.8. Telemetry shows sinus rhythm. Blood pressure 100/55, 94/55, 99/56, 95/54. Respirations 20, 19, 16, 29, 26. O2 sat 100%. HEENT: Head: Normocephalic, atraumatic. HEENT examination shows positive ET tube, positive OG tube. Positive conjunctivae. Anicteric sclerae. No oropharyngeal lesion. NECK: No neck rigidity. CHEST: Symmetric kyphosis. LUNGS: Shows positive rhonchi, upper lung bauer. CARDIOVASCULAR: S1, S2. Regular rhythm. Positive systolic murmur, left sternal border, right second intercostal space, left second intercostal space. ABDOMEN: Soft. Positive bowel sounds. GENITALIA: Female. Positive Oconnell catheter. EXTREMITIES: Show positive SCDs. MUSCULOSKELETAL: Shows a body mass index of 24. NEUROLOGIC: Patient is alert, awake, responsive, communicates by writing. DIAGNOSTIC STUDIES: On 12/30/2017, WBC 8.2, hemoglobin and hematocrit 10.2 and 31.9, platelets 160; granulocytes 82% segs. ABG from this morning, pH of 7.46, pCO2 of 52, pO2 of 130, bicarb 38, saturation 99.9 on FIO2 of 35%. Sodium 143, potassium 3.1, chloride 104, CO2 of 34, anion gap 8, BUN 7, creatinine 0.3, GFR greater than 60, glucose 85 and 94, calcium 76.7, phosphorus 1.8, magnesium 1.7, total protein 4.7, albumin 2.3. Chest x-ray this morning shows bibasilar atelectasis versus infiltrate and pleural effusion. IMPRESSION: 1. Acute, recurrent, relapsing, fabbn-xc-[id number] hypoxic, hypercarbic, ventilator-dependent respiratory failure with respiratory acidosis, hypercarbia. 2. Severe sepsis secondary to ventilator-dependent respiratory failure and bilateral multilobar possible healthcare-associated versus ventilator-associated pneumonia. 3. Hypotension, etiology undetermined. 4. Tachypnea. 5. Normocytic anemia. 6. Granulocytosis. 7. Hypokalemia. 8. Metabolic alkalosis. 9. Hypocalcemia. 10. Hypophosphatemia. 11. Dwtk-kn-bymzatvb protein malnutrition and hypoalbuminemia. 12. Bilateral pleural effusion. 13. Multilobar bilateral healthcare-associated pneumonia. 14. Atelectasis. 1. Acute recurrent relapsing ventilator-dependent respiratory failure with respiratory acidosis and hypercarbia. 2. Transient episodic hypotension. 3. Ventilator-dependent respiratory failure. 4. Acute exacerbation of chronic obstructive pulmonary disease. 5. Acute recurrent relapsing kqiuv-gf-bisdrlw hypercarbic hypoxic ventilator-dependent respiratory failure with hypoxemia, hypercarbia, carbon dioxide narcosis. 6. Normocytic anemia. 7. Leukopenia. 8. Granulocytosis. 9. Recurrent hypercarbia. 10. Hypokalemia, hypocalcemia, hypophosphatemia. 11. Questionable xdl-VF-akwnvxdtc myocardial infarction with elevated troponin. 12. Mild protein malnutrition and mild hypoalbuminemia. 13. Bilateral multilobar bibasilar healthcare-associated versus ventilator-associated pneumonia with pulmonary vascular congestion. 14. Status post cardiac catheterization. 15. Left ventricular ejection fraction of 60% on cardiac catheterization. 16. 60-70% stenosis of the proximal diagonal 2 branch. 17. Moderate concentric left ventricular hypertrophy with grade 1 abnormal relaxation pattern. 18. Moderately dilated left atrium. 19. Moderately sclerotic aortic valve. 20. Moderately thickened mitral valve with moderate mitral regurgitation. 21. Severe sepsis with ventilator-dependent respiratory failure secondary to multilobar bilateral healthcare-associated versus ventilator-associated pneumonia. 22. Nonsustained ventricular tachycardia. 23. Refractory ventilator-dependent respiratory failure. 24. Hypovitaminosis D. 25. Dyslipidemia. 1. Severe sepsis with ventilator-dependent respiratory failure and bilateral multilobar healthcare-associated versus ventilator-associated bilateral pneumonia. 2. Low-grade fever. 3. Transient hypotension. 4. Normocytic anemia. 5. Hypokalemia. 6. Granulocytosis. 7. Hypocalcemia. 8. Mild to moderate protein malnutrition and mild to moderate hypoalbuminemia. 9. Bilateral multilobar healthcare-associated versus ventilator-associated pneumonia. 1. Acute relapsing recurrent hypercarbic hypoxic respiratory failure with respiratory acidosis and CO2 narcosis with multiple reintubation. 2. Hypotension. 3. Probably asymptomatic nonsustained ventricular tachycardia. 4. Ventilator-dependent respiratory failure. 5. Multilobar bilateral healthcare-associated versus ventilator-associated aspiration multilobar bilateral pneumonia and infiltrate and pleural effusion. 6. A 0.3 cm right upper lobe nodule. 7. History of hypertension. 8. Status post uncontrolled hypertension. 9. Hypothyroidism. 10. History of dyslipidemia. 11. History of poor compliance. 12. Questionable tjv-ZZ-nkusdwnku myocardial function with elevated troponin. 13. Status post cardiac catheterization. 14. Nonobstructive coronary artery disease. 1. Acute recurrent ventilator dependent respiratory failure with respiratory acidosis, hypercapnic hypercarbic respiratory failure. 2. Multilobar bilateral pneumonia, healthcare-associated pneumonia versus ventilator-associated pneumonia. 3. Transient hypotension. 4. Ventilator-dependent respiratory failure. 5. Leukopenia and leukocytosis. 6. Granulocytosis. 7. Normocytic anemia. 8. Transaminitis. 9. Hypertensive cardiovascular disease with left ventricular hypertrophy. 10. Pleural effusion. 11. Pulmonary vascular congestion and congestive heart failure. 1. Recurrent relapsing acute ventilator-dependent hypoxic hypercarbic respiratory failure with severe respiratory acidosis. 2. Questionable non-ST elevation myocardial infarction with elevated troponin. 3. Status post cardiac catheterization. 4. Left ventricle ejection fraction of 60%. 5. 60 to 70% stenosis of the proximal portion of the second diagonal vessel. 6. Bibasilar bilateral multilobar possible aspiration versus ventilator-dependent pneumonia and pleural effusion. 7. Cardiomegaly. 8. Mild pulmonary vascular congestion. 9. Acute exacerbation of chronic obstructive pulmonary disease with reintubation secondary to recurrent relapsing acute hypoxic, hypercapnic respiratory failure with CO2 narcosis and hypercapnia. 10. Possible non-ST elevation myocardial infarction. 11. Severe sepsis with ventilator-dependent respiratory failure and bibasilar bilateral multilobar healthcare-associated versus ventilator-associated pneumonia with acute exacerbation of chronic obstructive pulmonary disease. 12. Possible diastolic congestive heart failure. 13. Low-grade fever. 14. Tachycardia. 15. Tachypnea. 16. Leukocytosis with leukopenia and normocytic anemia. 17. Granulocytosis. 18. Hypokalemia. 19. Hypomagnesemia. 20. Hypocalcemia. 21. Mild oropharyngeal dysphagia with wsm-af-qmkywzqf risk for aspiration due to minimal fatigue, minimal oral residue, missing teeth, and multiple swallows needed per single bolus. 22. Hypothyroidism. 23. History of hypertension. 24. Hypovitaminosis D. 25. Hyperlipidemia. 26. Inotropic, pressor-dependent hypotension. 27. Toxic metabolic encephalopathy secondary to hypercarbia, hypoxemia, and respiratory acidosis. 1. Recurrent acute relapsing hypoxic hypercarbic hypercapnic respiratory failure, ventilator requiring and ventilator-dependent. 2. Ventilator-dependent and ventilator-requiring hypoxic and hypercarbic respiratory failure with carbon dioxide narcosis and hypoxemia and confusion and obtundation. 3. Hypotension. 4. Transient uncontrolled hypertension and hypertensive urgency. 5. Leukocytosis with granulocytosis. 6. Normocytic anemia. 7. Severe respiratory acidosis. 8. Ventilator-dependent respiratory failure. 9. Hypokalemia. 10. Questionable acute yco-FO-hfkjqwqgx myocardial infarction with elevated troponin. 11. Transaminitis. 12. Healthcare-associated, ventilator-dependent multilobar bilateral pneumonia with volume loss and minimal right apical scarring. 13. Right upper lobe nodule. 14. Cardiomegaly. 15. Thyromegaly with thyroid calcification. 16. Degenerative joint disease of the spine. 17. T11-T12 subacute compression deformity. 18. Left lower chest and left upper anterior abdominal wall lipoma. 19. Adrenal gland hypertrophy. 20. Feeding dysfunction. 21. Status post left internal jugular triple-lumen catheter central line placement. 22. Questionable lateral ischemic changes on the EKG with left ventricular hypertrophy. 23. Severe sepsis with ventilator-dependent respiratory failure secondary to bilateral multilobar healthcare-associated versus ventilator-dependent pneumonia. 24. Acute exacerbation of chronic obstructive pulmonary disease. 25. Hypovitaminosis D. 26. Dyslipidemia. 27. History of constipation. 1. Questionable and possible steroid versus ICU psychosis with episodic confusion. 2. Acute exacerbation of chronic obstructive pulmonary disease. 3. Status post ventilator-dependent acute hypoxic hypercarbic respiratory failure. 4. Severe respiratory acidosis. 5. Uncontrolled hypertension. 6. Transient tachycardia. 7. Tachypnea. 8. Hypoxemia. 9. Transient leukopenia. 10. Granulocytosis. 11. Severe respiratory acidosis with hypercarbia, hypercapnia and CO2 narcosis with hypoxemia. 12. Refractory acute exacerbation of otoka-kx-lefygyc hypoxic hypercarbic respiratory failure with refractory slow resolving respiratory acidosis. 13. Metabolic alkalosis. 14. Steroid-induced hyperglycemia. 15. Transaminitis. 16. Hypovitaminosis D. 17. Acute exacerbation of chronic obstructive pulmonary disease with hyperinflation. 18. Questionable and possible ICU versus steroid psychosis. 1. Status post ventilator-dependent respiratory failure secondary to acute hypoxic hypercarbic respiratory failure with respiratory acidosis. 2. Acute exacerbation of chronic obstructive pulmonary disease. 3. Recurrent ebxnw-wz-bovurth hypoxic hypercarbic respiratory failure with persistent hypercarbia and hypoxemia and respiratory acidosis. 4. Tachycardia. 5. Uncontrolled hypertension. 6. Tachypnea. 7. Hypoxemia. 8. Leukopenia. 9. Granulocytosis. 10. Persistent recurrent fkxcy-qh-dkopywp and acute recurrent hypoxic hypercarbic respiratory failure with respiratory acidosis. 11. Metabolic alkalosis. 12. Hyperglycemia. 13. Transaminitis. 14. Hypovitaminosis D. 15. Non-hemolyzed hyperkalemia. 16. Constipation. 17. Hypothyroidism. 18. Mild oropharyngeal dysphagia with amm-xu-buwbseko aspiration risk secondary to minimal fatigue, minimal oral residue and missing teeth. 1. Acute exacerbation of chronic obstructive pulmonary disease. 2. Relapsing recurrent hypercarbia and respiratory acidosis. 3. Mild normocytic anemia with granulocytosis. 4. Non-hemolyzed hyperkalemia. 5. Metabolic alkalosis with rising pCO2. 6. Hyperglycemia. 7. Transaminitis. 8. Hypovitaminosis D. 9. Chronic obstructive pulmonary disease with pulmonary hyperinflation. 10. Left ventricular hypertrophy with repolarization abnormalities and possible anterior ischemic changes on the EKG. 11. Status post ventilator dependent. 12. Acute hypoxic hypercarbic respiratory failure with respiratory acidosis. 13. Acute exacerbation of chronic obstructive pulmonary disease with acute hypoxic respiratory failure with hypercapnia. 14. Acute exacerbation of chronic obstructive pulmonary disease with acute ventilator respiratory failure with hypercapnia. 15. Hypertensive cardiovascular disease with ejection fraction of 68%. 16. Concentric left ventricular hypertrophy with grade I abnormal relaxation patterns. 17. Moderately sclerotic aortic valve. 18. Moderate mitral regurgitation with moderately thickened mitral valve. 19. Trace tricuspid regurgitation. 1. Acute ventilator-dependent acute hypercarbic, hypoxemic respiratory failure and carbon dioxide narcosis. 2. Hypertension. 3. Persistent recurrent, refractor hypercarbia and mild respiratory acidosis. 4. Tachypnea. 5. Hypertension. 6. Mild normocytic anemia. 7. Granulocytosis. 8. Mild non-hemolyzed hyperkalemia. 9. Prerenal kidney injury. 10. Hyperglycemia. 11. Transaminitis. 12. Hypovitaminosis D. 13. Left ventricular ejection fraction of 68% with concentric left ventricular hypertrophy and grade 1 abnormal relaxation pattern. 14. Moderately dilated left atrium. 15. Moderately sclerotic aortic valve. 16. Moderately thickened mitral valve with moderate mitral regurgitation. 17. Hyperlipidemia. 18. Constipation. 1. Acute hypercarbic hypoxic respiratory failure with respiratory acidosis and hypercarbia and carbon dioxide narcosis. 2. Acute exacerbation of chronic obstructive pulmonary disease. 3. Acute ventilator-dependent hypercarbic hypercapnic hypoxic respiratory failure with severe respiratory acidosis. 4. Bronchospasm. 5. Severe acute exacerbation of chronic obstructive pulmonary disease. 6. Tachycardia. 7. Tachypnea. 8. Fever. 9. Febrile illness. 10. Questionable systemic inflammatory response syndrome. 11. Mild normocytic anemia. 12. Granulocytosis. 13. Recurrent hypercarbia and hypercapnia with mild respiratory acidosis and recurrent respiratory acidosis. 14. Prerenal kidney injury. 15. Transaminitis. 16. Hypovitaminosis D. 17. History of hypothyroidism. 18. Left ventricular ejection fraction of 68%. 19. Moderate concentric left ventricular hypertrophy. 20. Grade 1 abnormal relaxation pattern. 21. Moderately dilated left atrium. 22. Moderately sclerotic aortic valve. 23. Moderately thickened mitral valve with moderate mitral regurgitation. 24. Mild oropharyngeal dysphagia with low to moderate risk for aspiration due to minimal fatigue, minimal oral residue, missing teeth and multiple swallows. 25. History of hyperlipidemia. 1. Status post acute ventilator dependent hypercarbic hypoxic respiratory failure with carbon dioxide narcosis and respiratory acidosis. 2. Status post extubation. 3. Hypertension. 4. Mild normocytic anemia with granulocytosis. 5. Acute hypercarbic hypoxic ventilator-dependent respiratory failure, status post extubation with respiratory acidosis, hypercarbia and carbon dioxide narcosis. 6. Prerenal kidney injury. 7. Transaminitis. 8. Hypovitaminosis D. 9. Hypertensive cardiovascular disease with repolarization abnormalities. 10. Left ventricular ejection fraction of 68%. 11. Moderate concentric left ventricular hypertrophy with grade 1 abnormal relaxation pattern. 12. Moderately dilated left atrium. 13. Moderately sclerotic aortic valve. 14. Moderately thickened mitral valve with moderate mitral regurgitation. 15. Trace tricuspid regurgitation. 16. Carbon dioxide narcosis. 17. Acute exacerbation of severe chronic obstructive pulmonary disease. 18. History of hypothyroidism. 19. History of pulmonary hypertension. 20. High-grade fever of 101 degrees Fahrenheit. 21. Deconditioning. 22. Gait dysfunction. 23. History o hyperlipidemia. 24. History of constipation. 25. History of hypovitaminosis D. 1. Acute hypercarbic hypercapnic hypoxic ventilator-dependent respiratory failure with severe respiratory acidosis. 2. Resolving bronchospasm. 3. Fever of 100.8. 4. Mild normocytic anemia. 5. Granulocytosis. 6. Hypercarbia. 7. CO2 narcosis. 8. Transaminitis. 9. History of hypothyroidism. 10. Hypertensive cardiovascular disease with T-wave inversion I, aVL, V1 to V6. 11. Borderline hypokalemia. 1. Ventilator-dependent acute hypercarbic hypercapnic hypoxic respiratory failure with severe respiratory acidosis. 2. Bronchospasm. 3. Acute exacerbation of chronic obstructive pulmonary disease. 4. Normocytic anemia with granulocytosis. 5. Hypercarbia and hypercapnia. 6. Carbon dioxide narcosis. 7. Severe respiratory acidosis and hypoxemia. 8. Metabolic alkalosis. 9. Hyperglycemia. 10. Transaminitis. 11. Mild acute exacerbation of right-sided diastolic congestive heart failure with elevated BNP. 12. Indeterminate troponin. 13. Sinus tachycardia. 14. Left axis deviation. 15. Ventilator-dependent respiratory failure. 16. History of hypertension, hyperlipidemia, hypothyroidism, hypovitaminosis D. 17.Mild oropharyngeal dysphagia with htn-wq-fcpgskdk risk for aspiration due to minimal fatigue, minimal oral residue, missing teeth and multiple swallows needed per single bolus PLAN: At this time, patient has been ordered serial labs. Repeat ABG ordered. CURRENT CONSULTATIONS: 1. Cardiology. 2. Gastroenterology for gastrostomy tube placement. 3. Infectious Disease. 4. Ear, Nose, Throat for tracheostomy placement. 5. Neurology. 6. Pulmonary. CURRENT MEDICATIONS: Patient is on aspirin 325 daily, Atrovent nebulizer 0.5 mg every 6 hours and every 2 hours p.r.n. Patient is given calcium gluconate 1 ampule. Patient is on amiodarone 200 mg p.o. every 12. Patient is started on D5 normal saline at 100 mL an hour for hypotension, Drisdol 50,000 units weekly, Lipitor 10 mg daily, Lovenox 40 mg subcu daily, MiraLax 17 g daily. Patient is started on Neutra-Phos and K-Phos potassium supplementation. Patient is on Pulmicort nebulizer 1 mg every 12, Tylenol p.r.n. suppository, Xopenex nebulizer 0.63 mg four times a day and every 2 hours p.r.n., Zofran 4 mg IV every four p.r.n. Repeat chest x-ray ordered by Pulmonary. to be continued. Patient is awaiting for a tracheostomy placement and then after that patient will be evaluated by Gastroenterology for gastrostomy tube placement. Patient's overall prognosis is guarded to poor. Patient's condition is critical. Patient will be continued to be monitored in the ICU. Time spent is more than 35 minutes. Patient's family is aware of the patient's condition and overall [id number] prognosis. Dictated and electronically signed, not read. Garett Rodríguez MD MTDBrandy
[2017-12-31 06:09] LABS: ARTERIAL BLOOD GAS HCO3 36.3 mmol/L (21-28); ARTERIAL BLOOD GAS HEMOGLOBIN 13.4 g/dL (11.7-17.4); ARTERIAL BLOOD GAS O2 CAPACITY 18.5 mL/dl (16-24); ARTERIAL BLOOD GAS O2 CONTENT 18.5 ML/dl (15-23); ARTERIAL BLOOD GAS O2 SAT 99.9 % (95-98); ARTERIAL BLOOD GAS PCO2 51 mm/Hg (35-45); ARTERIAL BLOOD GAS PH 7.46 (7.35-7.45); ARTERIAL BLOOD GAS TCO2 37.9 mmol.L (22-28)
[2017-12-31 07:31] LABS: ALBUMIN 2.7 g/dL (3.0-4.8); ALT/SGPT 37 U/L (7-56); AST/SGOT 24 U/L (14-36); BILIRUBIN,DIRECT 0.1 mg/dL (0.0-0.4); BLOOD UREA NITROGEN 6 mg/dL (7-21); CALCIUM 7.9 mg/dL (8.4-10.5); GFR AFRICAN-AMERICAN > 60; GFR NON-AFRICAN AMERICAN > 60
[2017-12-31] MEDS: Budesonide 0.5 mg/2 ml Inhal Susp UD IH SCH ×2 (07:34→20:28)
--- NOTE | 2017-12-31 07:59 | PN ---
DATE: 12/31/2017([id number]) PULMONARY NOTE SUBJECTIVE: The patient remains on the ventilator. She is awake and alert. PHYSICAL EXAMINATION: VITAL SIGNS: Temperature is 97.8, pulse 79, respirations 18/18, blood pressure 107/60. HEENT: Normocephalic, atraumatic. No JVD. Positive tracheostomy. CARDIOVASCULAR: Systolic ejection murmur at the lower left sternal border. No S3 gallop. LUNGS: Decreased breath sounds at the bases. Minimal/less rhonchi. No wheezing. EXTREMITIES: No clubbing, cyanosis, or edema. Calves are nontender to palpation. GASTROINTESTINAL: Abdomen is soft, nontender, and nondistended. Bowel sounds are positive. SKIN: No acute rash. NEUROLOGIC: Limited at the present time. PERTINENT LABORATORY DATA: Chest x-ray was done this morning and reviewed. The chest x-ray shows minimal haziness at the right lung base. Otherwise, there are no acute changes. An arterial blood gas was done on PRVC 18, tidal volume 400, FiO2 of 35%. Results are: pH 7.46, pCO2 of 51, pO2 of 128. IMPRESSION: 1. Recurrent respiratory failure. 2. Left lower lobe pneumonia. 3. Sepsis syndrome. 4. Mild anemia. 5. Positive troponin. PLAN: The patient remains intubated. She is awake and alert. She did receive a tracheostomy yesterday. I did discuss the case with the night nurse at length. The night nurse stated that the patient had a good night. I did review the chest x-ray as above. There is minimal haziness noted at the right base. The patient is now off antibiotic therapy. Infectious disease evaluation is noted. I will follow a repeat chest x-ray in the morning. I have also reviewed the arterial blood gas. The arterial blood gas reveals CO2 retention, but with normal pH. I will discuss possible weaning trials with the ICU team later this morning. On physical exam, there is certainly less bronchospasm noted. I will continue with the current nebulizer treatments and inhaled steroids for now. Input by GI is also noted. The patient is for possible PEG tube in the near future. Clinical status of the patient has certainly improved - compared to last week. However, her future status/prognosis does remain very guarded. I will discuss the above with the entire ICU team in the next few moments. I will also discuss the above with Dr. Rodríguez. Edin Aguila MD MIGUEL
[2017-12-31 08:15] LABS: EOS # 0.1 (0.0-0.7); EOS % 1.6 % (1.5-5.0); GRAN # 5.84 (1.4-6.5); GRAN % 73.5 % (50.0-68.0); HEMOGLOBIN 9.8 g/dL (12.0-16.0); LYMPH # 1.2 (1.2-3.4); LYMPH % 14.5 % (22.0-35.0); MEAN CELL VOLUME 90.5 fl (80.0-105.0); MEAN CORPUSCULAR HEMOGLOBIN 29.1 pg (25.0-35.0); MEAN CORPUSCULAR HGB CONC 32.1 g/dl (31.0-37.0); MEAN PLATELET VOLUME 11.7 fl (7.0-11.0); MONO # 0.8 (0.1-0.6); MONO % 10.4 % (1.0-6.0); RBC 3.37 10^6/uL (3.5-6.1); RED CELL DISTRIBUTION WIDTH 14.6 % (11.5-14.5)
[2017-12-31] MEDS: POLYETHYLENE GLYCOL 3350 17 GM/Dose PACKET PO SCH (09:24)
[2017-12-31] MEDS: Potassium & Sodium Phosphate PO SCH ×4 (09:25→21:09)
[2017-12-31] MEDS: Enoxaparin 40 mg Syringe SC SCH (09:35)
[2017-12-31] MEDS ORDERED: Morphine 2 mg/2 mL syringe IVP PRN (10:05)
--- NOTE | 2017-12-31 10:27 | CP.CCUPN ---
<Venancio Olivera - Last Filed: 12/31/17 10:20> CCU Subjective - Physician Review Events Since Last Encounter (Free Text): 12/31/17 07:15 Patient seen and examined at bedside. No acute events overnight, patient tolerated trach procedure yesterday well; minor pain s/p procedure, well controlled with medications. CCU Objective - Vital Signs / Intake & Output Intake and Output (Last 8hrs): Intake & Output 12/30/17 12/31/17 12/31/17 22:59 06:59 14:59 Intake Total 450 1200 Output Total 1250 1300 Balance -800 -100 Weight 57.243 kg Intake: IV 450 1200 Left Internal Jugular 450 1200 Oral 0 Output: Urine 1250 1300 Urethral ([place]) 1250 1300 Other: # Bowel Movements 0 - Physical Exam Head: Positive for: Atraumatic, Normocephalic Pupils: Positive for: PERRL. Negative for: Non-Reactive, Pinpoint Extroacular Muscles: Positive for: EOMI. Negative for: Gaze Palsy, Entrapment Conjunctiva: Positive for: Normal. Negative for: Injected, Icteric Mouth: Positive for: Moist Mucous Membranes, Normal Lips, Normal Tounge. Negative for: Drooling Pharnyx: Positive for: Other (face and jaw swollen) Nose (External): Positive for: Atraumatic. Negative for: Abrasion, Laceration Nose (Internal): Positive for: Normal Inspection, No Active Bleeding. Negative for: Epistaxis Neck: Positive for: Normal Range of Motion. Negative for: Meningeal Signs, MIDLINE TENDERNESS, Paraspinal Tenderness, JVD Respiratory/Chest: Positive for: Clear to Auscultation, Good Air Exchange, Decreased Breath Sounds (mildly decreased breath sounds all bauer, again improved over prior exams). Negative for: Respiratory Distress, Accessory Muscle Use, Wheezes (no further wheezing appreciated on exam today), Rales, Rhonchi Cardiovascular: Positive for: Regular Rate and Rhythm, Normal S1, S2. Negative for: Murmurs, Irregular Rhythm, Tachycardic, Bradycardic Abdomen: Negative for: Tenderness, Distention, Peritoneal Signs Back: Positive for: Normal Inspection. Negative for: CVA Tenderness, Midline Tenderness, Paraspinal Tenderness Upper Extremity: Positive for: Normal Inspection, Normal ROM, NORMAL PULSES. Negative for: Cyanosis, Edema, Tenderness, Swelling, Erythema, Deformity Lower Extremity: Positive for: Normal Inspection, NORMAL PULSES, Normal ROM. Negative for: Edema, CALF TENDERNESS, Cyanosis, Tenderness, Swelling, Erythema, Deformity Neurological: Positive for: GCS=15, Speech Normal, Motor Func Grossly Intact, Normal Sensory Function, Other (following all commands appropriately, no appreciable lethargy/somnolence) Skin: Positive for: Warm, Dry, Normal Color. Negative for: Rashes Psychiatric: Positive for: Alert, Oriented x 3 (x4 (self, location, year, president)), Normal Insight, Normal Concentration, Normal Affect, Normal Mood - Medications Active Medications: Active Medications Generic Name Dose Route Start Last Admin Trade Name Freq PRN Reason Stop Dose Admin Acetaminophen 650 mg 12/16/17 19:09 12/17/17 08:30 Tylenol 650 Mg Supp RC 650 mg Q6H PRN Administration TEMP>=99.5F Amiodarone HCl 200 mg 12/28/17 10:15 12/31/17 09:24 Cordarone PO Not Given Q12 DAVE Aspirin 325 mg 12/20/17 10:00 12/31/17 09:24 Aspirin PO Not Given DAILY DAVE Atorvastatin Calcium 10 mg 12/19/17 17:00 12/30/17 16:14 Lipitor PO Not Given DIN [facility] Budesonide 1 mg 12/22/17 20:00 12/31/17 07:34 Pulmicort Respules IH 1 mg [id number] DAVE Administration Enoxaparin Sodium 40 mg 12/17/17 10:00 12/31/17 09:35 Lovenox SC 40 mg DAILY DAVE Administration Protocol Ergocalciferol 1 cap 12/20/17 10:00 12/27/17 10:03 Drisdol 50,000 Intl Units Cap PO Not Given Q7D DAVE Dextrose/Sodium Chloride 1,000 mls @ 100 mls/hr 12/30/17 16:00 12/31/17 02:00 Dextrose 5%/0.9% Ns 1000 Ml IV 100 mls/hr .Q10H DAVE Administration Potassium Chloride 10 meq in 100 mls @ 50 mls/hr 12/31/17 10:00 12/31/17 09: 39 Potassium Chloride 10 Meq/100 Ml IVPB 12/31/17 11:59 Not Given ONCE ONE Ipratropium [place] 0.5 mg 12/22/17 14:00 12/31/17 07:34 Atrovent IH 0.5 mg [id number] DAVE Administration Ipratropium [place] 0.5 mg 12/22/17 12:21 Atrovent IH Q2H PRN Shortness of Breath Levalbuterol HCl 0.63 mg 12/16/17 15:37 Xopenex IH Q2 PRN Shortness of Breath Levalbuterol HCl 0.63 mg 12/22/17 08:00 12/31/17 07:35 Xopenex IH 0.63 mg 0200,0800,1400,2000 DAVE Administration Morphine Sulfate 1 mg 12/31/17 10:05 Morphine IVP Q6H PRN Pain, severe (8-10) Ondansetron HCl 4 mg 12/16/17 19:09 Zofran Inj IVP Q4H PRN Nausea/Vomiting Pantoprazole Sodium 40 mg 12/23/17 22:00 12/31/17 09:35 Protonix Inj IVP 40 mg Q12 DAVE Administration Polyethylene Glycol 17 gm 12/19/17 10:30 12/31/17 09:24 Miralax PO Not Given DAILY DAVE Potassium Phos/Sodium Phos 1 pkt 12/30/17 10:00 12/31/17 09:25 Neutra-Phos PO 12/31/17 22:01 Not Given QID DAVE - Patient Studies Lab Studies: Lab Studies 12/31/17 12/31/17 12/31/17 Range/Units 06:40 06:30 05:45 WBC 8.0 (4.5-11.0) 10^3/ul RBC 3.37 L (3.5-6.1) 10^6/uL Hgb 9.8 L (12.0-16.0) g/dL Hct 30.5 L (36.0-48.0) % MCV 90.5 (80.0-105.0) fl MCH 29.1 (25.0-35.0) pg MCHC 32.1 (31.0-37.0) g/dl RDW 14.6 H (11.5-14.5) % Plt Count 200 (120.0-450.0) 10^3/uL MPV 11.7 H (7.0-11.0) fl Gran % 73.5 H (50.0-68.0) % Lymph % (Auto) 14.5 L (22.0-35.0) % [place] % (Auto) 10.4 H (1.0-6.0) % Eos % (Auto) 1.6 (1.5-5.0) % Baso % (Auto) 0.0 (0.0-3.0) % Gran # 5.84 (1.4-6.5) Lymph # (Auto) 1.2 (1.2-3.4) [place] # (Auto) 0.8 H (0.1-0.6) Eos # (Auto) 0.1 (0.0-0.7) Baso # (Auto) 0.00 (0.0-2.0) K/mm3 PT (9.4-12.5) SECONDS INR (0.93-1.08) APTT (25.1-36.5) Seconds pCO2 51 H (35-45) mm/Hg pO2 128.0 H (80-100) mm/Hg HCO3 36.3 H (21-28) mmol/L ABG pH 7.46 H (7.35-7.45) ABG Total CO2 37.9 H (22-28) mmol.L ABG O2 Saturation 99.9 H (95-98) % ABG O2 Content 18.5 (15-23) ML/dl ABG Base Excess 10.7 H (-2.0-3.0) mmol/L ABG Hemoglobin 13.4 (11.7-17.4) g/dL ABG Carboxyhemoglobin 1.7 H (0.5-1.5) % POC ABG HHb (Measured) 0.1 (0-5) % ABG Methemoglobin 1.0 (0.0-3.0) % ABG O2 Capacity 18.5 (16-24) mL/dl Hgb O2 Saturation 97.2 (95.0-98.0) % FiO2 35.0 % Sodium 141 (132-148) mmol/L Potassium 3.5 L (3.6-5.0) mmol/L Chloride 99 (98-107) mmol/L Carbon Dioxide 37 H (21-33) mmol/L Anion Gap 9 L (10-20) BUN 6 L (7-21) mg/dL Creatinine 0.4 L (0.7-1.2) mg/dl Est GFR ( Amer) > 60 Est GFR (Non-Af Amer) > 60 POC Glucose (mg/dL) (65-110) mg/dL Random Glucose 102 (70-110) mg/dL Calcium 7.9 L (8.4-10.5) mg/dL Phosphorus 2.7 (2.5-4.5) mg/dL Magnesium 2.0 (1.7-2.2) mg/dL Total Bilirubin 0.5 (0.2-1.3) mg/dL Direct Bilirubin 0.1 (0.0-0.4) mg/dL AST 24 (14-36) U/L ALT 37 (7-56) U/L Alkaline Phosphatase 51 (38-126) U/L Total Protein 5.3 L (5.8-8.3) g/dL Albumin 2.7 L (3.0-4.8) g/dL Globulin 2.6 gm/dL Albumin/Globulin Ratio 1.0 L (1.1-1.8) 12/31/17 12/30/17 12/30/17 Range/Units 05:36 22:43 17:52 WBC (4.5-11.0) 10^3/ul RBC (3.5-6.1) 10^6/uL Hgb (12.0-16.0) g/dL Hct (36.0-48.0) % MCV (80.0-105.0) fl MCH (25.0-35.0) pg MCHC (31.0-37.0) g/dl RDW (11.5-14.5) % Plt Count (120.0-450.0) 10^3/uL MPV (7.0-11.0) fl Gran % (50.0-68.0) % Lymph % (Auto) (22.0-35.0) % [place] % (Auto) (1.0-6.0) % Eos % (Auto) (1.5-5.0) % Baso % (Auto) (0.0-3.0) % Gran # (1.4-6.5) Lymph # (Auto) (1.2-3.4) [place] # (Auto) (0.1-0.6) Eos # (Auto) (0.0-0.7) Baso # (Auto) (0.0-2.0) K/mm3 PT (9.4-12.5) SECONDS INR (0.93-1.08) APTT (25.1-36.5) Seconds pCO2 (35-45) mm/Hg pO2 (80-100) mm/Hg HCO3 (21-28) mmol/L ABG pH (7.35-7.45) ABG Total CO2 (22-28) mmol.L ABG O2 Saturation (95-98) % ABG O2 Content (15-23) ML/dl ABG Base Excess (-2.0-3.0) mmol/L ABG Hemoglobin (11.7-17.4) g/dL ABG Carboxyhemoglobin (0.5-1.5) % POC ABG HHb (Measured) (0-5) % ABG Methemoglobin (0.0-3.0) % ABG O2 Capacity (16-24) mL/dl Hgb O2 Saturation (95.0-98.0) % FiO2 % Sodium (132-148) mmol/L Potassium (3.6-5.0) mmol/L Chloride (98-107) mmol/L Carbon Dioxide (21-33) mmol/L Anion Gap (10-20) BUN (7-21) mg/dL Creatinine (0.7-1.2) mg/dl Est GFR ( Amer) Est GFR (Non-Af Amer) POC Glucose (mg/dL) 104 84 88 (65-110) mg/dL Random Glucose (70-110) mg/dL Calcium (8.4-10.5) mg/dL Phosphorus (2.5-4.5) mg/dL Magnesium (1.7-2.2) mg/dL Total Bilirubin (0.2-1.3) mg/dL Direct Bilirubin (0.0-0.4) mg/dL AST (14-36) U/L ALT (7-56) U/L Alkaline Phosphatase (38-126) U/L Total Protein (5.8-8.3) g/dL Albumin (3.0-4.8) g/dL Globulin gm/dL Albumin/Globulin Ratio (1.1-1.8) 12/30/17 12/30/17 12/30/17 Range/Units 11:15 10:45 10:45 WBC 8.2 D (4.5-11.0) 10^3/ul RBC 3.51 (3.5-6.1) 10^6/uL Hgb 10.2 L (12.0-16.0) g/dL Hct 31.9 L (36.0-48.0) % MCV 90.9 (80.0-105.0) fl MCH 29.1 (25.0-35.0) pg MCHC 32.0 (31.0-37.0) g/dl RDW 14.6 H (11.5-14.5) % Plt Count 160 (120.0-450.0) 10^3/uL MPV 12.3 H (7.0-11.0) fl Gran % 80.2 H (50.0-68.0) % Lymph % (Auto) 12.0 L (22.0-35.0) % [place] % (Auto) 6.1 H (1.0-6.0) % Eos % (Auto) 1.7 (1.5-5.0) % Baso % (Auto) 0.0 (0.0-3.0) % Gran # 6.56 H (1.4-6.5) Lymph # (Auto) 1.0 L (1.2-3.4) [place] # (Auto) 0.5 (0.1-0.6) Eos # (Auto) 0.1 (0.0-0.7) Baso # (Auto) 0.00 (0.0-2.0) K/mm3 PT 13.3 H (9.4-12.5) SECONDS INR 1.15 H (0.93-1.08) APTT 28.1 (25.1-36.5) Seconds pCO2 (35-45) mm/Hg pO2 (80-100) mm/Hg HCO3 (21-28) mmol/L ABG pH (7.35-7.45) ABG Total CO2 (22-28) mmol.L ABG O2 Saturation (95-98) % ABG O2 Content (15-23) ML/dl ABG Base Excess (-2.0-3.0) mmol/L ABG Hemoglobin (11.7-17.4) g/dL ABG Carboxyhemoglobin (0.5-1.5) % POC ABG HHb (Measured) (0-5) % ABG Methemoglobin (0.0-3.0) % ABG O2 Capacity (16-24) mL/dl Hgb O2 Saturation (95.0-98.0) % FiO2 % Sodium (132-148) mmol/L Potassium (3.6-5.0) mmol/L Chloride (98-107) mmol/L Carbon Dioxide (21-33) mmol/L Anion Gap (10-20) BUN (7-21) mg/dL Creatinine (0.7-1.2) mg/dl Est GFR ( Amer) Est GFR (Non-Af Amer) POC Glucose (mg/dL) 94 (65-110) mg/dL Random Glucose (70-110) mg/dL Calcium (8.4-10.5) mg/dL Phosphorus (2.5-4.5) mg/dL Magnesium (1.7-2.2) mg/dL Total Bilirubin (0.2-1.3) mg/dL Direct Bilirubin (0.0-0.4) mg/dL AST (14-36) U/L ALT (7-56) U/L Alkaline Phosphatase (38-126) U/L Total Protein (5.8-8.3) g/dL Albumin (3.0-4.8) g/dL Globulin gm/dL Albumin/Globulin Ratio (1.1-1.8) Laboratory Results - last 24 hr 12/30/17 12/30/17 12/30/17 10:45 10:45 11:15 WBC 8.2 D RBC 3.51 Hgb 10.2 L Hct 31.9 L MCV 90.9 MCH 29.1 MCHC 32.0 RDW 14.6 H Plt Count 160 MPV 12.3 H Gran % 80.2 H Lymph % (Auto) 12.0 L [place] % (Auto) 6.1 H Eos % (Auto) 1.7 Baso % (Auto) 0.0 Gran # 6.56 H Lymph # (Auto) 1.0 L [place] # (Auto) 0.5 Eos # (Auto) 0.1 Baso # (Auto) 0.00 PT 13.3 H INR 1.15 H APTT 28.1 pCO2 pO2 HCO3 ABG pH ABG Total CO2 ABG O2 Saturation ABG O2 Content ABG Base Excess ABG Hemoglobin ABG Carboxyhemoglobin POC ABG HHb (Measured) ABG Methemoglobin ABG O2 Capacity Hgb O2 Saturation FiO2 Sodium Potassium Chloride Carbon Dioxide Anion Gap BUN Creatinine Est GFR ( Amer) Est GFR (Non-Af Amer) POC Glucose (mg/dL) 94 Random Glucose Calcium Phosphorus Magnesium Total Bilirubin Direct Bilirubin AST ALT Alkaline Phosphatase Total Protein Albumin Globulin Albumin/Globulin Ratio 12/30/17 12/30/17 12/31/17 17:52 22:43 05:36 WBC RBC Hgb Hct MCV MCH MCHC RDW Plt Count MPV Gran % Lymph % (Auto) [place] % (Auto) Eos % (Auto) Baso % (Auto) Gran # Lymph # (Auto) [place] # (Auto) Eos # (Auto) Baso # (Auto) PT INR APTT pCO2 pO2 HCO3 ABG pH ABG Total CO2 ABG O2 Saturation ABG O2 Content ABG Base Excess ABG Hemoglobin ABG Carboxyhemoglobin POC ABG HHb (Measured) ABG Methemoglobin ABG O2 Capacity Hgb O2 Saturation FiO2 Sodium Potassium Chloride Carbon Dioxide Anion Gap BUN Creatinine Est GFR ( Amer) Est GFR (Non-Af Amer) POC Glucose (mg/dL) 88 84 104 Random Glucose Calcium Phosphorus Magnesium Total Bilirubin Direct Bilirubin AST ALT Alkaline Phosphatase Total Protein Albumin Globulin Albumin/Globulin Ratio 12/31/17 12/31/17 12/31/17 05:45 06:30 06:40 WBC 8.0 RBC 3.37 L Hgb 9.8 L Hct 30.5 L MCV 90.5 MCH 29.1 MCHC 32.1 RDW 14.6 H Plt Count 200 MPV 11.7 H Gran % 73.5 H Lymph % (Auto) 14.5 L [place] % (Auto) 10.4 H Eos % (Auto) 1.6 Baso % (Auto) 0.0 Gran # 5.84 Lymph # (Auto) 1.2 [place] # (Auto) 0.8 H Eos # (Auto) 0.1 Baso # (Auto) 0.00 PT INR APTT pCO2 51 H pO2 128.0 H HCO3 36.3 H ABG pH 7.46 H ABG Total CO2 37.9 H ABG O2 Saturation 99.9 H ABG O2 Content 18.5 ABG Base Excess 10.7 H ABG Hemoglobin 13.4 ABG Carboxyhemoglobin 1.7 H POC ABG HHb (Measured) 0.1 ABG Methemoglobin 1.0 ABG O2 Capacity 18.5 Hgb O2 Saturation 97.2 FiO2 35.0 Sodium 141 Potassium 3.5 L Chloride 99 Carbon Dioxide 37 H Anion Gap 9 L BUN 6 L Creatinine 0.4 L Est GFR ( Amer) > 60 Est GFR (Non-Af Amer) > 60 POC Glucose (mg/dL) Random Glucose 102 Calcium 7.9 L Phosphorus 2.7 Magnesium 2.0 Total Bilirubin 0.5 Direct Bilirubin 0.1 AST 24 ALT 37 Alkaline Phosphatase 51 Total Protein 5.3 L Albumin 2.7 L Globulin 2.6 Albumin/Globulin Ratio 1.0 L Fingerstick Blood Sugar Results: 104 Critical Care Progress Note - Nutrition Nutrition: Nutrition Category Date Time Status NPO Diet [DIET] Diets 12/23/17 Lunch Ordered Assessment/Plan - Assessment and Plan (Free Text) Assessment: 72 yo AA F in ICU care for Hypercapneic Hypoxic Respiratory Failure likely 2/2 COPD Exacerbation who now has trach after failing several extubations. Patient failed bipap trial when first brought into ED on 12/16 with initial ABG showing patient to be in severe respiratory acidosis with retention of CO2; patient was also altered as a result of Hypoxemic Hypercapneic Respiratory failure. Patient was doing better and was extubated on 12/18; On 12/23 she was ready for transfer out of ICU when she started desatting and was becoming acutely altered mentally. After patient was re-intubated, CT Head to rule out any neurogenic causes for her desaturation, was negative. Septic work up was ordered with sputum cultures, blood cultures, and urine cultures all negative. CT Chest shows bibasilar atelectasis with possible overlying pneumonia. Patient was also taken to clinical lab specialist two days ago which showed no critical lesions , was taken because trope was elevated. Before re-intubation, patient was noted to have possible steroid psychosis, and steroids were tapered off. Patient was taken for tracheostomy yesterday, 12/30 and has been on CPAP Ventilator. Most recent ABG today 12/31 shows CO2 of 51, O2 of 128, HCO3 of 36, and pH of 7.46 with FiO2 of 35, which is stable. Patient continues to become hypokalemic. Chest XR continues to show improvement. Other chronic medical problems: HTN Plan: Neuro: - Maintain normothermia - Possible Steroid Psychosis - Resolved Cardio: - Possible NSTEMI: No other intervention per Dr. Parry - Lovenox for DVT ppx; Daily ASA Pulm: - Hypoxic Hypercapneic Respiratory Failure Likely 2/2 PNA VS COPD VS Mixed picture - Vanc/Cefepime/Doxy - Completed - Solumedrol, Xopenex, Atrovent, Budesonide - Patient ABG O2 high, changed FiO2 to 30 - ENT consult for tracheostomy: Performed Friday, 12/30 - Pulm consult: Dr. Smart GI: - Protonix for GI ppx - Miralax Dave; Zofran PRN - GI Consult: Dr. Luna, need recommendations regarding PEG tube. Renal: - Monitor and replete electrolytes as needed Heme: - Lovenox for DVT ppx Endo: - Maintain euglycemia ID: - Was covered for PNA with Cefepime and Vanc; No need to re-order blood cultures at this time. Dispo: Patient is awaiting GI recommendations for PEG tube, after which she can be discharged to LTAC. <Sheldon Modi - Last Filed: 12/31/17 10:33> CCU Objective - Vital Signs / Intake & Output Intake and Output (Last 8hrs): Intake & Output 12/30/17 12/31/17 12/31/17 22:59 06:59 14:59 Intake Total 450 1200 Output Total 1250 1300 Balance -800 -100 Weight 126 lb 3.2 oz Intake: IV 450 1200 Left Internal Jugular 450 1200 Oral 0 Output: Urine 1250 1300 Urethral ([place]) 1250 1300 Other: # Bowel Movements 0 - Medications Active Medications: Active Medications Generic Name Dose Route Start Last Admin Trade Name Freq PRN Reason Stop Dose Admin Acetaminophen 650 mg 12/16/17 19:09 12/17/17 08:30 Tylenol 650 Mg Supp RC 650 mg Q6H PRN Administration TEMP>=99.5F Amiodarone HCl 200 mg 12/28/17 10:15 12/31/17 09:24 Cordarone PO Not Given Q12 DAVE Aspirin 325 mg 12/20/17 10:00 12/31/17 09:24 Aspirin PO Not Given DAILY DAVE Atorvastatin Calcium 10 mg 12/19/17 17:00 12/30/17 16:14 Lipitor PO Not Given DIN DAVE Budesonide 1 mg 12/22/17 20:00 12/31/17 07:34 Pulmicort Respules IH 1 mg [id number] DAVE Administration Enoxaparin Sodium 40 mg 12/17/17 10:00 12/31/17 09:35 Lovenox SC 40 mg DAILY DAVE Administration Protocol Ergocalciferol 1 cap 12/20/17 10:00 12/27/17 10:03 Drisdol 50,000 Intl Units Cap PO Not Given Q7D DAVE Dextrose/Sodium Chloride 1,000 mls @ 100 mls/hr 12/30/17 16:00 12/31/17 02:00 Dextrose 5%/0.9% Ns 1000 Ml IV 100 mls/hr .Q10H DAVE Administration Potassium Chloride 10 meq in 100 mls @ 50 mls/hr 12/31/17 10:00 12/31/17 09: 39 Potassium Chloride 10 Meq/100 Ml IVPB 12/31/17 11:59 Not Given ONCE ONE Ipratropium [place] 0.5 mg 12/22/17 14:00 12/31/17 07:34 Atrovent IH 0.5 mg [id number] DAVE Administration Ipratropium [place] 0.5 mg 12/22/17 12:21 Atrovent IH Q2H PRN Shortness of Breath Levalbuterol HCl 0.63 mg 12/16/17 15:37 Xopenex IH Q2 PRN Shortness of Breath Levalbuterol HCl 0.63 mg 12/22/17 08:00 12/31/17 07:35 Xopenex IH 0.63 mg 0200,0800,1400,2000 DAVE Administration Morphine Sulfate 1 mg 12/31/17 10:05 Morphine IVP Q6H PRN Pain, severe (8-10) Ondansetron HCl 4 mg 12/16/17 19:09 Zofran Inj IVP Q4H PRN Nausea/Vomiting Pantoprazole Sodium 40 mg 12/23/17 22:00 12/31/17 09:35 Protonix Inj IVP 40 mg Q12 DAVE Administration Polyethylene Glycol 17 gm 12/19/17 10:30 12/31/17 09:24 Miralax PO Not Given DAILY [facility] Potassium Phos/Sodium Phos 1 pkt 12/30/17 10:00 12/31/17 09:25 Neutra-Phos PO 12/31/17 22:01 Not Given QID [facility] - Patient Studies Lab Studies: Lab Studies 12/31/17 12/31/17 12/31/17 Range/Units 06:40 06:30 05:45 WBC 8.0 (4.5-11.0) 10^3/ul RBC 3.37 L (3.5-6.1) 10^6/uL Hgb 9.8 L (12.0-16.0) g/dL Hct 30.5 L (36.0-48.0) % MCV 90.5 (80.0-105.0) fl MCH 29.1 (25.0-35.0) pg MCHC 32.1 (31.0-37.0) g/dl RDW 14.6 H (11.5-14.5) % Plt Count 200 (120.0-450.0) 10^3/uL MPV 11.7 H (7.0-11.0) fl Gran % 73.5 H (50.0-68.0) % Lymph % (Auto) 14.5 L (22.0-35.0) % [place] % (Auto) 10.4 H (1.0-6.0) % Eos % (Auto) 1.6 (1.5-5.0) % Baso % (Auto) 0.0 (0.0-3.0) % Gran # 5.84 (1.4-6.5) Lymph # (Auto) 1.2 (1.2-3.4) [place] # (Auto) 0.8 H (0.1-0.6) Eos # (Auto) 0.1 (0.0-0.7) Baso # (Auto) 0.00 (0.0-2.0) K/mm3 PT (9.4-12.5) SECONDS INR (0.93-1.08) APTT (25.1-36.5) Seconds pCO2 51 H (35-45) mm/Hg pO2 128.0 H (80-100) mm/Hg HCO3 36.3 H (21-28) mmol/L ABG pH 7.46 H (7.35-7.45) ABG Total CO2 37.9 H (22-28) mmol.L ABG O2 Saturation 99.9 H (95-98) % ABG O2 Content 18.5 (15-23) ML/dl ABG Base Excess 10.7 H (-2.0-3.0) mmol/L ABG Hemoglobin 13.4 (11.7-17.4) g/dL ABG Carboxyhemoglobin 1.7 H (0.5-1.5) % POC ABG HHb (Measured) 0.1 (0-5) % ABG Methemoglobin 1.0 (0.0-3.0) % ABG O2 Capacity 18.5 (16-24) mL/dl Hgb O2 Saturation 97.2 (95.0-98.0) % FiO2 35.0 % Sodium 141 (132-148) mmol/L Potassium 3.5 L (3.6-5.0) mmol/L Chloride 99 (98-107) mmol/L Carbon Dioxide 37 H (21-33) mmol/L Anion Gap 9 L (10-20) BUN 6 L (7-21) mg/dL Creatinine 0.4 L (0.7-1.2) mg/dl Est GFR ( Amer) > 60 Est GFR (Non-Af Amer) > 60 POC Glucose (mg/dL) (65-110) mg/dL Random Glucose 102 (70-110) mg/dL Calcium 7.9 L (8.4-10.5) mg/dL Phosphorus 2.7 (2.5-4.5) mg/dL Magnesium 2.0 (1.7-2.2) mg/dL Total Bilirubin 0.5 (0.2-1.3) mg/dL Direct Bilirubin 0.1 (0.0-0.4) mg/dL AST 24 (14-36) U/L ALT 37 (7-56) U/L Alkaline Phosphatase 51 (38-126) U/L Total Protein 5.3 L (5.8-8.3) g/dL Albumin 2.7 L (3.0-4.8) g/dL Globulin 2.6 gm/dL Albumin/Globulin Ratio 1.0 L (1.1-1.8) 12/31/17 12/30/17 12/30/17 Range/Units 05:36 22:43 17:52 WBC (4.5-11.0) 10^3/ul RBC (3.5-6.1) 10^6/uL Hgb (12.0-16.0) g/dL Hct (36.0-48.0) % MCV (80.0-105.0) fl MCH (25.0-35.0) pg MCHC (31.0-37.0) g/dl RDW (11.5-14.5) % Plt Count (120.0-450.0) 10^3/uL MPV (7.0-11.0) fl Gran % (50.0-68.0) % Lymph % (Auto) (22.0-35.0) % [place] % (Auto) (1.0-6.0) % Eos % (Auto) (1.5-5.0) % Baso % (Auto) (0.0-3.0) % Gran # (1.4-6.5) Lymph # (Auto) (1.2-3.4) [place] # (Auto) (0.1-0.6) Eos # (Auto) (0.0-0.7) Baso # (Auto) (0.0-2.0) K/mm3 PT (9.4-12.5) SECONDS INR (0.93-1.08) APTT (25.1-36.5) Seconds pCO2 (35-45) mm/Hg pO2 (80-100) mm/Hg HCO3 (21-28) mmol/L ABG pH (7.35-7.45) ABG Total CO2 (22-28) mmol.L ABG O2 Saturation (95-98) % ABG O2 Content (15-23) ML/dl ABG Base Excess (-2.0-3.0) mmol/L ABG Hemoglobin (11.7-17.4) g/dL ABG Carboxyhemoglobin (0.5-1.5) % POC ABG HHb (Measured) (0-5) % ABG Methemoglobin (0.0-3.0) % ABG O2 Capacity (16-24) mL/dl Hgb O2 Saturation (95.0-98.0) % FiO2 % Sodium (132-148) mmol/L Potassium (3.6-5.0) mmol/L Chloride (98-107) mmol/L Carbon Dioxide (21-33) mmol/L Anion Gap (10-20) BUN (7-21) mg/dL Creatinine (0.7-1.2) mg/dl Est GFR ( Amer) Est GFR (Non-Af Amer) POC Glucose (mg/dL) 104 84 88 (65-110) mg/dL Random Glucose (70-110) mg/dL Calcium (8.4-10.5) mg/dL Phosphorus (2.5-4.5) mg/dL Magnesium (1.7-2.2) mg/dL Total Bilirubin (0.2-1.3) mg/dL Direct Bilirubin (0.0-0.4) mg/dL AST (14-36) U/L ALT (7-56) U/L Alkaline Phosphatase (38-126) U/L Total Protein (5.8-8.3) g/dL Albumin (3.0-4.8) g/dL Globulin gm/dL Albumin/Globulin Ratio (1.1-1.8) 12/30/17 12/30/17 12/30/17 Range/Units 11:15 10:45 10:45 WBC 8.2 D (4.5-11.0) 10^3/ul RBC 3.51 (3.5-6.1) 10^6/uL Hgb 10.2 L (12.0-16.0) g/dL Hct 31.9 L (36.0-48.0) % MCV 90.9 (80.0-105.0) fl MCH 29.1 (25.0-35.0) pg MCHC 32.0 (31.0-37.0) g/dl RDW 14.6 H (11.5-14.5) % Plt Count 160 (120.0-450.0) 10^3/uL MPV 12.3 H (7.0-11.0) fl Gran % 80.2 H (50.0-68.0) % Lymph % (Auto) 12.0 L (22.0-35.0) % [place] % (Auto) 6.1 H (1.0-6.0) % Eos % (Auto) 1.7 (1.5-5.0) % Baso % (Auto) 0.0 (0.0-3.0) % Gran # 6.56 H (1.4-6.5) Lymph # (Auto) 1.0 L (1.2-3.4) [place] # (Auto) 0.5 (0.1-0.6) Eos # (Auto) 0.1 (0.0-0.7) Baso # (Auto) 0.00 (0.0-2.0) K/mm3 PT 13.3 H (9.4-12.5) SECONDS INR 1.15 H (0.93-1.08) APTT 28.1 (25.1-36.5) Seconds pCO2 (35-45) mm/Hg pO2 (80-100) mm/Hg HCO3 (21-28) mmol/L ABG pH (7.35-7.45) ABG Total CO2 (22-28) mmol.L ABG O2 Saturation (95-98) % ABG O2 Content (15-23) ML/dl ABG Base Excess (-2.0-3.0) mmol/L ABG Hemoglobin (11.7-17.4) g/dL ABG Carboxyhemoglobin (0.5-1.5) % POC ABG HHb (Measured) (0-5) % ABG Methemoglobin (0.0-3.0) % ABG O2 Capacity (16-24) mL/dl Hgb O2 Saturation (95.0-98.0) % FiO2 % Sodium (132-148) mmol/L Potassium (3.6-5.0) mmol/L Chloride (98-107) mmol/L Carbon Dioxide (21-33) mmol/L Anion Gap (10-20) BUN (7-21) mg/dL Creatinine (0.7-1.2) mg/dl Est GFR ( Amer) Est GFR (Non-Af Amer) POC Glucose (mg/dL) 94 (65-110) mg/dL Random Glucose (70-110) mg/dL Calcium (8.4-10.5) mg/dL Phosphorus (2.5-4.5) mg/dL Magnesium (1.7-2.2) mg/dL Total Bilirubin (0.2-1.3) mg/dL Direct Bilirubin (0.0-0.4) mg/dL AST (14-36) U/L ALT (7-56) U/L Alkaline Phosphatase (38-126) U/L Total Protein (5.8-8.3) g/dL Albumin (3.0-4.8) g/dL Globulin gm/dL Albumin/Globulin Ratio (1.1-1.8) Laboratory Results - last 24 hr 12/30/17 12/30/17 12/30/17 10:45 10:45 11:15 WBC 8.2 D RBC 3.51 Hgb 10.2 L Hct 31.9 L MCV 90.9 MCH 29.1 MCHC 32.0 RDW 14.6 H Plt Count 160 MPV 12.3 H Gran % 80.2 H Lymph % (Auto) 12.0 L [place] % (Auto) 6.1 H Eos % (Auto) 1.7 Baso % (Auto) 0.0 Gran # 6.56 H Lymph # (Auto) 1.0 L [place] # (Auto) 0.5 Eos # (Auto) 0.1 Baso # (Auto) 0.00 PT 13.3 H INR 1.15 H APTT 28.1 pCO2 pO2 HCO3 ABG pH ABG Total CO2 ABG O2 Saturation ABG O2 Content ABG Base Excess ABG Hemoglobin ABG Carboxyhemoglobin POC ABG HHb (Measured) ABG Methemoglobin ABG O2 Capacity Hgb O2 Saturation FiO2 Sodium Potassium Chloride Carbon Dioxide Anion Gap BUN Creatinine Est GFR ( Amer) Est GFR (Non-Af Amer) POC Glucose (mg/dL) 94 Random Glucose Calcium Phosphorus Magnesium Total Bilirubin Direct Bilirubin AST ALT Alkaline Phosphatase Total Protein Albumin Globulin Albumin/Globulin Ratio 12/30/17 12/30/17 12/31/17 17:52 22:43 05:36 WBC RBC Hgb Hct MCV MCH MCHC RDW Plt Count MPV Gran % Lymph % (Auto) [place] % (Auto) Eos % (Auto) Baso % (Auto) Gran # Lymph # (Auto) [place] # (Auto) Eos # (Auto) Baso # (Auto) PT INR APTT pCO2 pO2 HCO3 ABG pH ABG Total CO2 ABG O2 Saturation ABG O2 Content ABG Base Excess ABG Hemoglobin ABG Carboxyhemoglobin POC ABG HHb (Measured) ABG Methemoglobin ABG O2 Capacity Hgb O2 Saturation FiO2 Sodium Potassium Chloride Carbon Dioxide Anion Gap BUN Creatinine Est GFR ( Amer) Est GFR (Non-Af Amer) POC Glucose (mg/dL) 88 84 104 Random Glucose Calcium Phosphorus Magnesium Total Bilirubin Direct Bilirubin AST ALT Alkaline Phosphatase Total Protein Albumin Globulin Albumin/Globulin Ratio 12/31/17 12/31/17 12/31/17 05:45 06:30 06:40 WBC 8.0 RBC 3.37 L Hgb 9.8 L Hct 30.5 L MCV 90.5 MCH 29.1 MCHC 32.1 RDW 14.6 H Plt Count 200 MPV 11.7 H Gran % 73.5 H Lymph % (Auto) 14.5 L [place] % (Auto) 10.4 H Eos % (Auto) 1.6 Baso % (Auto) 0.0 Gran # 5.84 Lymph # (Auto) 1.2 [place] # (Auto) 0.8 H Eos # (Auto) 0.1 Baso # (Auto) 0.00 PT INR APTT pCO2 51 H pO2 128.0 H HCO3 36.3 H ABG pH 7.46 H ABG Total CO2 37.9 H ABG O2 Saturation 99.9 H ABG O2 Content 18.5 ABG Base Excess 10.7 H ABG Hemoglobin 13.4 ABG Carboxyhemoglobin 1.7 H POC ABG HHb (Measured) 0.1 ABG Methemoglobin 1.0 ABG O2 Capacity 18.5 Hgb O2 Saturation 97.2 FiO2 35.0 Sodium 141 Potassium 3.5 L Chloride 99 Carbon Dioxide 37 H Anion Gap 9 L BUN 6 L Creatinine 0.4 L Est GFR ( Amer) > 60 Est GFR (Non-Af Amer) > 60 POC Glucose (mg/dL) Random Glucose 102 Calcium 7.9 L Phosphorus 2.7 Magnesium 2.0 Total Bilirubin 0.5 Direct Bilirubin 0.1 AST 24 ALT 37 Alkaline Phosphatase 51 Total Protein 5.3 L Albumin 2.7 L Globulin 2.6 Albumin/Globulin Ratio 1.0 L Critical Care Progress Note - Nutrition Nutrition: Nutrition Category Date Time Status NPO Diet [DIET] Diets 12/23/17 Lunch Ordered Assessment/Plan - Assessment and Plan (Free Text) Assessment: Patient seen and examined on rounds with resident, agree with note with following additions/exceptions: Patient is 72yo female with PMhx COPD (with prior intubations for exacerbations) , asthma, HTN, and pulmonary HTN, a/w hypercapnic resp failure. Currently afebrile, BP stable, comfortable in NAD, s/p tracheostomy Patient reintubated 3x on this admission. Doing well Awaiting possible PEG placement Placed on pressure support this morning will transition to trach collar as tolerated COPD exacerbation Resp failure s/p trach Pulm HTN Recommend: - supp o2, goal sat 90%, trach collar trial - pulmonary follow up - DC Abx - speech swallow eval - Duonebs PRN - BP control - GI ppx - DVT ppx - monitor in MICU
--- NOTE | 2017-12-31 10:45 | PN ---
DATE: 12/31/2017 CARDIOLOGY FOLLOWUP SUBJECTIVE: The patient is status post tracheostomy. She is awake, alert. No shortness of breath noted. PHYSICAL EXAMINATION: VITAL SIGNS: Blood pressure is 107/60, the heart rate is in the 80s. NECK: Negative JVD. LUNGS: No rales noted. HEART: Reveals S1, S2. EXTREMITIES: Without edema. LABORATORY DATA: Hemoglobin is 10.2. Chemistries: BUN and creatinine are unremarkable. Potassium is 3.5. IMPERSSION: 1. Respiratory failure. 2. Status post tracheostomy. 3. Pneumonia. 4. Hypertension. 5. Anemia. PLAN: Given these findings, the patient is much more comfortable post tracheostomy. The cardiac status is stable. Marcelo Parry MD
--- NOTE | 2017-12-31 12:14 | CP.PCM.PN ---
Subjective - Date & Time of Evaluation Date of Evaluation: 12/31/17 Time of Evaluation: 09:10 - Subjective Subjective: Patient seen and examined at bedside this AM. Patient reports some pain in her neck but no SOB or chest pain or any other symptoms. Objective - Vital Signs/Intake and Output Vital Signs (last 24 hours): Temp Pulse Resp BP Pulse Ox 99.1 F 84 37 H 126/55 L 98 12/31/17 12:00 12/31/17 10:24 12/31/17 10:24 12/31/17 10:25 12/31/17 10:24 Intake and Output: 12/31/17 12/31/17 06:59 18:59 Intake Total 1200 Output Total 1300 Balance -100 - Medications Medications: Current Medications Acetaminophen (Tylenol 650 Mg Supp) 650 mg RC Q6H PRN PRN Reason: TEMP>=99.5F Last Admin: 12/17/17 08:30 Dose: 650 mg Amiodarone HCl (Cordarone) 200 mg PO Q12 [facility] Last Admin: 12/31/17 09:24 Dose: Not Given Aspirin (Aspirin) 325 mg PO DAILY [facility] Last Admin: 12/31/17 09:24 Dose: Not Given Atorvastatin Calcium (Lipitor) 10 mg PO DIN [facility] Last Admin: 12/30/17 16:14 Dose: Not Given Budesonide (Pulmicort Respules) 1 mg IH [id number] [facility] Last Admin: 12/31/17 07:34 Dose: 1 mg Enoxaparin Sodium (Lovenox) 40 mg SC DAILY [facility] PRN Reason: Protocol Last Admin: 12/31/17 09:35 Dose: 40 mg Ergocalciferol (Drisdol 50,000 Intl Units Cap) 1 cap PO Q7D [facility] Last Admin: 12/27/17 10:03 Dose: Not Given Dextrose/Sodium Chloride (Dextrose 5%/0.9% Ns 1000 Ml) 1,000 mls @ 100 mls/hr IV .Q10H [facility] Last Admin: 12/31/17 10:28 Dose: 100 mls/hr Ipratropium [place] (Atrovent) 0.5 mg IH [id number] [facility] Last Admin: 12/31/17 07:34 Dose: 0.5 mg Ipratropium [place] (Atrovent) 0.5 mg IH Q2H PRN PRN Reason: Shortness of Breath Levalbuterol HCl (Xopenex) 0.63 mg IH Q2 PRN PRN Reason: Shortness of Breath Levalbuterol HCl (Xopenex) 0.63 mg IH 0200,0800,1400,2000 [facility] Last Admin: 12/31/17 07:35 Dose: 0.63 mg Morphine Sulfate (Morphine) 1 mg IVP Q6H PRN PRN Reason: Pain, severe (8-10) Ondansetron HCl (Zofran Inj) 4 mg IVP Q4H PRN PRN Reason: Nausea/Vomiting Pantoprazole Sodium (Protonix Inj) 40 mg IVP Q12 [facility] Last Admin: 12/31/17 09:35 Dose: 40 mg Polyethylene Glycol (Miralax) 17 gm PO DAILY [facility] Last Admin: 12/31/17 09:24 Dose: Not Given Potassium Phos/Sodium Phos (Neutra-Phos) 1 pkt PO QID [facility] Stop: 12/31/17 22:01 Last Admin: 12/31/17 09:25 Dose: Not Given - Labs Labs: 12/31/17 06:30 12/31/17 06:40 PT 13.3 SECONDS (9.4-12.5) H 12/30/17 10:45 INR 1.15 (0.93-1.08) H 12/30/17 10:45 APTT 28.1 Seconds (25.1-36.5) 12/30/17 10:45 - Constitutional Appears: Well, Non-toxic, No Acute Distress - Head Exam Head Exam: ATRAUMATIC, NORMOCEPHALIC - Eye Exam Eye Exam: Normal appearance. absent: Conjunctival injection, Scleral icterus - ENT Exam ENT Exam: Mucous Membranes Moist - Neck Exam Additional comments: tracheostomy tube in appropriate position with moderate sanguinous saturation of the dressing, no active bleeding - Respiratory Exam Respiratory Exam: NORMAL BREATHING PATTERN. absent: Accessory Muscle Use, Respiratory Distress - Cardiovascular Exam Cardiovascular Exam: RRR - GI/Abdominal Exam GI & Abdominal Exam: Soft. absent: Distended - Neurological Exam Neurological Exam: Alert, Awake, Oriented x3 - Psychiatric Exam Psychiatric exam: Normal Affect, Normal Mood - Skin Skin Exam: Dry, Intact, Normal Color, Warm Assessment and Plan - Assessment and Plan (Free Text) Assessment: 72F with respiratory failure with dependence on mechanical ventilation POD#1 s/ p tracheostomy insertion Plan: Continue local tracheostomy care with suctioning Continue to attempt to wean off ventilator as tolerated--management per ICU team Swallow study--may advance diet as tolerated Medical management per primary and ICU team Discussed with Dr. Kimble, further recommendations per ENT service Alyson Concepcion, PGY2
--- NOTE | 2017-12-31 12:57 | CP.PCM.PN ---
<Nu Sandoval - Last Filed: 12/31/17 13:40> Subjective - Date & Time of Evaluation Date of Evaluation: 12/31/17 Time of Evaluation: 12:55 - Subjective Subjective: Medicine Progress Note - Dr. Rodríguez Service: Patient seen and examined at bedside. Per nursing, no acute events overnight. Patient went for trach yesterday with ENT. Patient currently on pressure support. Offers no complaints at this time. Denies headaches, dizziness, cp, palpitations, sob, abdominal pain, urinary symptoms. Objective - Vital Signs/Intake and Output Vital Signs (last 24 hours): Temp Pulse Resp BP Pulse Ox 99.1 F 84 37 H 126/55 L 98 12/31/17 12:00 12/31/17 10:24 12/31/17 10:24 12/31/17 10:25 12/31/17 10:24 Intake and Output: 12/31/17 12/31/17 06:59 18:59 Intake Total 1200 Output Total 1300 Balance -100 - Medications Medications: Current Medications Acetaminophen (Tylenol 650 Mg Supp) 650 mg RC Q6H PRN PRN Reason: TEMP>=99.5F Last Admin: 12/17/17 08:30 Dose: 650 mg Amiodarone HCl (Cordarone) 200 mg PO Q12 [facility] Last Admin: 12/31/17 09:24 Dose: Not Given Aspirin (Aspirin) 325 mg PO DAILY [facility] Last Admin: 12/31/17 09:24 Dose: Not Given Atorvastatin Calcium (Lipitor) 10 mg PO DIN [facility] Last Admin: 12/30/17 16:14 Dose: Not Given Budesonide (Pulmicort Respules) 1 mg IH [id number] [facility] Last Admin: 12/31/17 07:34 Dose: 1 mg Enoxaparin Sodium (Lovenox) 40 mg SC DAILY [facility] PRN Reason: Protocol Last Admin: 12/31/17 09:35 Dose: 40 mg Ergocalciferol (Drisdol 50,000 Intl Units Cap) 1 cap PO Q7D [facility] Last Admin: 12/27/17 10:03 Dose: Not Given Dextrose/Sodium Chloride (Dextrose 5%/0.9% Ns 1000 Ml) 1,000 mls @ 100 mls/hr IV .Q10H [facility] Last Admin: 12/31/17 10:28 Dose: 100 mls/hr Ipratropium [place] (Atrovent) 0.5 mg IH [id number] [facility] Last Admin: 12/31/17 07:34 Dose: 0.5 mg Ipratropium [place] (Atrovent) 0.5 mg IH Q2H PRN PRN Reason: Shortness of Breath Levalbuterol HCl (Xopenex) 0.63 mg IH Q2 PRN PRN Reason: Shortness of Breath Levalbuterol HCl (Xopenex) 0.63 mg IH 0200,0800,1400,2000 [facility] Last Admin: 12/31/17 07:35 Dose: 0.63 mg Morphine Sulfate (Morphine) 1 mg IVP Q6H PRN PRN Reason: Pain, severe (8-10) Ondansetron HCl (Zofran Inj) 4 mg IVP Q4H PRN PRN Reason: Nausea/Vomiting Pantoprazole Sodium (Protonix Inj) 40 mg IVP Q12 [facility] Last Admin: 12/31/17 09:35 Dose: 40 mg Polyethylene Glycol (Miralax) 17 gm PO DAILY [facility] Last Admin: 12/31/17 09:24 Dose: Not Given Potassium Phos/Sodium Phos (Neutra-Phos) 1 pkt PO QID [facility] Stop: 12/31/17 22:01 Last Admin: 12/31/17 09:25 Dose: Not Given - Labs Labs: 12/31/17 06:30 12/31/17 06:40 PT 13.3 SECONDS (9.4-12.5) H 12/30/17 10:45 INR 1.15 (0.93-1.08) H 12/30/17 10:45 APTT 28.1 Seconds (25.1-36.5) 12/30/17 10:45 - Additional Findings Additional findings: - Constitutional Appears: Well, Non-toxic, No Acute Distress - Head Exam Head Exam: ATRAUMATIC, NORMOCEPHALIC - Eye Exam Eye Exam: Normal appearance. absent: Conjunctival injection, Scleral icterus - ENT Exam ENT Exam: Mucous Membranes Moist - Neck Exam Additional comments: tracheostomy tube in appropriate position, no active bleeding - Respiratory Exam Respiratory Exam: NORMAL BREATHING PATTERN. Decreased breath sounds. absent: Accessory Muscle Use, Respiratory Distress - Cardiovascular Exam Cardiovascular Exam: +S1, +S2 - GI/Abdominal Exam GI & Abdominal Exam: Soft. absent: Distended - Neurological Exam Neurological Exam: Alert, Awake, Oriented x3 - Psychiatric Exam Psychiatric exam: Normal Affect, Normal Mood - Skin Skin Exam: Dry, Intact, Normal Color, Warm Assessment and Plan - Assessment and Plan (Free Text) Assessment: A/P: Patient is a 72 yo AA F with PMH of COPD (with prior intubations for exacerbations), asthma, HTN, and pulmonary HTN who presented to [facility] with worsening shortness of breath, found to be in hypercarbic respiratory failure, failing Bipap in ED, then intubated and placed on mechanical ventilation. She is s/p extubation. Patient was re-intubated 2/2 to respiratory acidosis and hypercarbia. Intubated and off sedation at this time. For trach today with ENT. Plan: Acute exacerbation of COPD with Acute Hypoxic respiratory failure with hypercapnea -s/p Tracheostomy POD#1, patient on pressure support -GI to evaluate for peg tube placement -CT head showed non specific white matter changes (see full report) -CT chest showed bibasilar atelectasis, possible left lung infiltrate, superimposed pneumonia cannot be excluded (see full report) -Xopenex and Ipratroprium Q6H KRISTINE, Q2H PRN SOB -Budesanide 1mg Q12H KRISTINE -Tube feeds, aspiration precautions -Pulmonary on consult, help appreciated -ENT on consult, help appreciated -GI on consult, help appreciated Severe Sepsis 2/2 HCAP -Leukocytosis resolved -S/P Antibiotics: Doxycycline 100mg Q12, Vancomycin 1gm Q12H, Cefepime 2gm Q8H -Patient completed course of antibiotics; discontinued at this time -Blood cultures showing no growth x 5 days -Urine cultures showing no growth, sputum cultures no growth -ID on consult, help appreciated Altered Mental Status (improved) -Likely due to Toxic metabolic encephalopathy 2/2 chronic CO2 retention -Head CT showed non specific white matter changes (see full report) -Neurology on consult, help appreciated -MRI of brain ordered Elevated Blood Pressures -Currently normatensive -Continue to monitor Relapsing recurrent hypercarbia and respiratory acidosis -ABG reviewed this morning -Continue to Monitor daily ABGs -Pulmonary on consult, help appreciated Elevated Troponin, SVT -Troponin 0.30 -> 0.16 -Concern for possible NSTEMI -Cardiac cath showed no acute findings -Patient went into SVT over the weekend -Started on Amiodarone 200mg Q12H which is now discontinued -Cardiology on consult, help appreciated Diastolic CHF, Moderate Mitral Regurgitation -Echo showed normal LVEF with Moderate Mitral Regurgitation -Cardiology consulted, help appreciated -Continue ASA and Lipitor Transaminitis -LFTs normalized, Hep panel negative -Will continue to monitor Hypokalemia -Potassium 3.5 today -Repleted -Continue to monitor Hypophosphatemia -Phos 2.7 -Will continue to monitor Hypocalcemia -Calcium 7.9 -Continue to monitor Hypothyroidism -Continue Synthroid 50mcg daily Vitamin D Deficiency -Continue Ergocalciferol 1 tab PO Q7D GI/DVT ppx -Protonix 40mg Q12 IVP -Lovenox 40 SC daily Plan discussed with Dr Marcos Sandoval DO PGY-1 <Garett Rodríguez U - Last Filed: 01/01/18 21:25> Objective - Vital Signs/Intake and Output Vital Signs (last 24 hours): Temp Pulse Resp BP Pulse Ox 98.9 F 86 24 124/72 99 01/01/18 16:00 01/01/18 19:59 01/01/18 14:53 01/01/18 20:00 01/01/18 19:59 Intake and Output: 01/01/18 01/02/18 18:59 06:59 Intake Total 2110 Output Total 1050 Balance 1060 - Labs Labs: 01/01/18 06:15 01/01/18 06:15 PT 13.3 SECONDS (9.4-12.5) H 12/30/17 10:45 INR 1.15 (0.93-1.08) H 12/30/17 10:45 APTT 28.1 Seconds (25.1-36.5) 12/30/17 10:45 Attending/Attestation - Attestation I have personally seen and examined this patient.: Yes I have fully participated in the care of the patient.: Yes I have reviewed all pertinent clinical information, including history, physical exam and plan: Yes Notes (Text): Please see/read my dictated notes.
--- NOTE | 2017-12-31 13:00 | CP.PCM.PN ---
Subjective - Date & Time of Evaluation Date of Evaluation: 12/31/17 Time of Evaluation: 09:10 - Subjective Subjective: Tolerated tracheostomy procedure yesterday well, no fevers. Objective - Vital Signs/Intake and Output Vital Signs (last 24 hours): Temp Pulse Resp BP Pulse Ox 97.8 F 79 16 107/60 98 12/31/17 04:00 12/31/17 05:50 12/30/17 16:00 12/31/17 05:00 12/31/17 05:00 Intake and Output: 12/30/17 12/31/17 18:59 06:59 Intake Total 450 1200 Output Total 1250 1300 Balance -800 -100 - Medications Medications: Current Medications Acetaminophen (Tylenol 650 Mg Supp) 650 mg RC Q6H PRN PRN Reason: TEMP>=99.5F Last Admin: 12/17/17 08:30 Dose: 650 mg Amiodarone HCl (Cordarone) 200 mg PO Q12 [facility] Last Admin: 12/30/17 21:50 Dose: Not Given Aspirin (Aspirin) 325 mg PO DAILY [facility] Last Admin: 12/30/17 09:24 Dose: 325 mg Atorvastatin Calcium (Lipitor) 10 mg PO DIN [facility] Last Admin: 12/30/17 16:14 Dose: Not Given Budesonide (Pulmicort Respules) 1 mg IH [id number] [facility] Last Admin: 12/30/17 19:48 Dose: 1 mg Enoxaparin Sodium (Lovenox) 40 mg SC DAILY [facility] PRN Reason: Protocol Last Admin: 12/29/17 09:34 Dose: 40 mg Ergocalciferol (Drisdol 50,000 Intl Units Cap) 1 cap PO Q7D [facility] Last Admin: 12/27/17 10:03 Dose: Not Given Dextrose/Sodium Chloride (Dextrose 5%/0.9% Ns 1000 Ml) 1,000 mls @ 100 mls/hr IV .Q10H [facility] Last Admin: 12/31/17 02:00 Dose: 100 mls/hr Ipratropium [place] (Atrovent) 0.5 mg IH [id number] [facility] Last Admin: 12/31/17 02:06 Dose: 0.5 mg Ipratropium [place] (Atrovent) 0.5 mg IH Q2H PRN PRN Reason: Shortness of Breath Levalbuterol HCl (Xopenex) 0.63 mg IH Q2 PRN PRN Reason: Shortness of Breath Levalbuterol HCl (Xopenex) 0.63 mg IH 0200,0800,1400,2000 [facility] Last Admin: 12/31/17 02:07 Dose: 0.63 mg Morphine Sulfate (Morphine) 1 mg IVP Q6H PRN PRN Reason: Pain, severe (8-10) Last Admin: 12/30/17 21:53 Dose: 1 mg Ondansetron HCl (Zofran Inj) 4 mg IVP Q4H PRN PRN Reason: Nausea/Vomiting Pantoprazole Sodium (Protonix Inj) 40 mg IVP Q12 [facility] Last Admin: 12/30/17 21:55 Dose: 40 mg Polyethylene Glycol (Miralax) 17 gm PO DAILY [facility] Last Admin: 12/30/17 09:23 Dose: 17 gm Potassium Phos/Sodium Phos (Neutra-Phos) 1 pkt PO QID [facility] Stop: 12/31/17 22:01 Last Admin: 12/30/17 21:50 Dose: Not Given - Labs Labs: 12/30/17 10:45 12/30/17 06:15 PT 13.3 SECONDS (9.4-12.5) H 12/30/17 10:45 INR 1.15 (0.93-1.08) H 12/30/17 10:45 APTT 28.1 Seconds (25.1-36.5) 12/30/17 10:45 - Constitutional Appears: Non-toxic, Chronically Ill - Head Exam Head Exam: NORMAL INSPECTION - ENT Exam Additional comments: tracheostomy in place - Respiratory Exam Respiratory Exam: Decreased Breath Sounds - Cardiovascular Exam Cardiovascular Exam: +S1, +S2 - GI/Abdominal Exam GI & Abdominal Exam: Soft. absent: Tenderness Assessment and Plan - Assessment and Plan (Free Text) Plan: Assessment S/P severe sepsis with ventilator-dependent respiratory failure due to left sided hospital-acquired pneumonia in this patient with acute COPD exacerbation, S/P tracheostomy COPD diastolic chronic CHF S/P hysterectomy obesity with BMI 31 Plan completed 7 days of Vancomycin, Cefepime and Doxycycline - will continue to monitor clinically off antibiotics since she is at risk for hospital-acquired infections
--- NOTE | 2017-12-31 13:26 | RAD ---
HISTORY: f/u COMPARISON: 12/30/2017 FINDINGS: LUNGS: There is a density at the left lung base that obscures the diaphragm. This is unchanged. There is a tracheostomy. Left internal jugular line unchanged PLEURA: No significant pleural effusion identified, no pneumothorax apparent. CARDIOVASCULAR: Normal. OSSEOUS STRUCTURES: No significant abnormalities. VISUALIZED UPPER ABDOMEN: Normal. OTHER FINDINGS: None. IMPRESSION: Density at left lung base obscures the diaphragm. Central lines and tubes unchanged
--- NOTE | 2017-12-31 15:11 | CON ---
DATE: 12/31/2017 GASTROENTEROLOGY CONSULTATION REQUESTING PHYSICIAN: Garett Rodríguez MD REASON FOR CONSULTATION AND HISTORY OF PRESENT ILLNESS: I have been asked to see this 72-year-old female with known history of severe COPD, asthma, diastolic congestive heart failure who has been in the hospital for several weeks with respiratory failure requiring intubation and mechanical ventilation, status post tracheostomy placement yesterday, whom I have been asked to see for a PEG placement. The patient is currently awake and alert. She has had no problems with swallowing or eating prior to this hospitalization. She is in the ICU with a trach receiving supplemental oxygen. PAST MEDICAL HISTORY: Notable for COPD, asthma, GERD. PAST SURGICAL HISTORY: Notable for hysterectomy. SOCIAL HISTORY: She is a former cigarette smoker. She quit several years ago. She denies alcohol use. FAMILY HISTORY: Noncontributory. MEDICATIONS AT HOME: Include Synthroid, Xopenex nebulizer, Protonix, MiraLax, simvastatin and prednisone. REVIEW OF SYSTEMS: A 14-point review of systems is notable for shortness of breath. PHYSICAL EXAMINATION GENERAL: Elderly female lying in bed, in no acute distress. VITAL SIGNS: Reveal pulse of 79, blood pressure 107/60. HEENT: Reveals sclerae to be white. Conjunctivae pink. NECK: Supple. She has a tracheostomy in place. CHEST: Reveals scattered wheezing with distant breath sounds. HEART: Reveals regular rate and rhythm. ABDOMEN: Soft, nontender. EXTREMITIES: Show no edema. LABORATORY DATA: Revealed white blood cell count of 8, hemoglobin 9.8. Chemistries reveal potassium of 3.5. AST, ALT, alkaline phosphatase were all normal. Her albumin is 2.7. IMPRESSION: A 72-year-old female with severe chronic obstructive pulmonary disease, asthma, respiratory failure status post tracheostomy, now awake and alert. She had no feeding problems or swallowing prior to this recent hospitalization. RECOMMENDATIONS: I agree with obtaining a swallowing evaluation. If she has evidence of severe oropharyngeal dysphagia, we will need to speak with family about PEG placement. Artis Luna MD
[2018-01-01] MEDS: Ipratropium 0.02% Inhal Soln (0.5 mg/2.5 ml) UD IH SCH ×4 (02:13→19:34)
[2018-01-01] MEDS: Levalbuterol 0.63 MG/3 ML Inhal Soln UD IH SCH ×4 (02:14→19:34)
--- NOTE | 2018-01-01 03:55 | PN ---
DATE: 12/31/2017 SUBJECTIVE: Patient is seen in ICU, CCU bed 3. Patient is now status post tracheostomy, lying in the bed, awake, responsive. Patient's kind of a tracheostomy, connected to the ventilator. Overnight nurses' notes were reviewed. Patient was maintained on the ventilator setting with pressure support of 15, tidal volume 350, FiO2 of 35%, PEEP of 5. PHYSICAL EXAMINATION: VITAL SIGNS: T-max 99.1 to 98.3. Telemetry shows sinus rhythm. Heart rate 81 to 84. Blood pressure is averaging in the last 12 to 24 hours, averaging in systolic low 100's to 120's and diastolic is averaging around 60s. Respiration is anywhere from 21 to 28 to 33 to 35 to 38 per minute. O2 sat is 99% to 100% on FiO2 of 30%. HEENT: Head: Normocephalic, atraumatic. HEENT: Shows pinkish pale conjunctivae, anicteric sclerae. Positive tracheostomy connected to the ventilator. No neck rigidity. No oropharyngeal lesion noted. No facial asymmetry. LUNGS: Positive upper lung rhonchi noted. CHEST: Kyphosis. CARDIOVASCULAR: S1 and S2, regular rhythm. Positive systolic murmur, left sternal border, left second intercostal space, right second intercostal space. ABDOMEN: Soft. Positive bowel sounds. GENITALIA: Female. RECTAL: Deferred. EXTREMITIES: Shows no pitting edema, no calf tenderness, no Homans' sign. MUSCULOSKELETAL: Shows a body mass index of 24. NEUROLOGIC: Cranial nerves II through XII limited. Gait examination could not be tested. VASCULAR: Palpable DIAGNOSTIC DATA: On 12/31/2017; WBC 8, hemoglobin and hematocrit 9.8 and 30.5, platelets 200, granulocytes 73% segs. ABG on 35% FiO2: pH of 7.46, pCO2 of 51, pO2 of 128, bicarb 36, saturation of 99.9. Sodium 141, potassium 3.5, chloride 99, CO2 of 37, anion gap 9, BUN 6, creatinine 0.4, GFR greater than 60, glucose 102, calcium 7.9, phosphorus 2.7, magnesium 2, total protein 5.3, albumin 2.7. Chest x-ray shows a left lower lobe density, tracheostomy noted. IMPRESSION: 1. Status post tracheostomy. 2. Severe oropharyngeal dysphagia with high risk for aspiration due to tracheostomy and multiple weak swallows, poor management of own saliva requiring oral suction, and weak cough. 3. Hypotension, etiology undetermined. 4. Normocytic anemia. 5. Granulocytosis. 6. Acute hypoxic hypercarbic respiratory failure with respiratory acidosis. 7. Ventilator-dependent respiratory failure. 8. Hypokalemia. 9. Hypocalcemia. 10. Hypophosphatemia. 11. Hbhm-rk-yibtztnu protein malnutrition and hypoalbuminemia. 12. Deconditioning. 13. Feeding dysfunction secondary to severe oropharyngeal dysphagia. 14. Persistent left lower lobe density. 15. Status post left internal jugular triple-lumen catheter placement. 16. Severe sepsis with ventilator-dependent respiratory failure with multilobar bilateral hospital-acquired pneumonia versus ventilator-associated pneumonia. 17. Acute exacerbation of chronic obstructive pulmonary disease. 1. Acute, recurrent, relapsing, yfgao-gz-ljibfxa hypoxic, hypercarbic, ventilator-dependent respiratory failure with respiratory acidosis, hypercarbia. 2. Severe sepsis secondary to ventilator-dependent respiratory failure and bilateral multilobar possible healthcare-associated versus ventilator-associated pneumonia. 3. Hypotension, etiology undetermined. 4. Tachypnea. 5. Normocytic anemia. 6. Granulocytosis. 7. Hypokalemia. 8. Metabolic alkalosis. 9. Hypocalcemia. 10. Hypophosphatemia. 11. Ictv-az-vzopqkvj protein malnutrition and hypoalbuminemia. 12. Bilateral pleural effusion. 13. Multilobar bilateral healthcare-associated pneumonia. 14. Atelectasis. 1. Acute recurrent relapsing ventilator-dependent respiratory failure with respiratory acidosis and hypercarbia. 2. Transient episodic hypotension. 3. Ventilator-dependent respiratory failure. 4. Acute exacerbation of chronic obstructive pulmonary disease. 5. Acute recurrent relapsing zhttq-fl-gcqghdm hypercarbic hypoxic ventilator-dependent respiratory failure with hypoxemia, hypercarbia, carbon dioxide narcosis. 6. Normocytic anemia. 7. Leukopenia. 8. Granulocytosis. 9. Recurrent hypercarbia. 10. Hypokalemia, hypocalcemia, hypophosphatemia. 11. Questionable yxe-UL-pzthoomxr myocardial infarction with elevated troponin. 12. Mild protein malnutrition and mild hypoalbuminemia. 13. Bilateral multilobar bibasilar healthcare-associated versus ventilator-associated pneumonia with pulmonary vascular congestion. 14. Status post cardiac catheterization. 15. Left ventricular ejection fraction of 60% on cardiac catheterization. 16. 60-70% stenosis of the proximal diagonal 2 branch. 17. Moderate concentric left ventricular hypertrophy with grade 1 abnormal relaxation pattern. 18. Moderately dilated left atrium. 19. Moderately sclerotic aortic valve. 20. Moderately thickened mitral valve with moderate mitral regurgitation. 21. Severe sepsis with ventilator-dependent respiratory failure secondary to multilobar bilateral healthcare-associated versus ventilator-associated pneumonia. 22. Nonsustained ventricular tachycardia. 23. Refractory ventilator-dependent respiratory failure. 24. Hypovitaminosis D. 25. Dyslipidemia. 1. Severe sepsis with ventilator-dependent respiratory failure and bilateral multilobar healthcare-associated versus ventilator-associated bilateral pneumonia. 2. Low-grade fever. 3. Transient hypotension. 4. Normocytic anemia. 5. Hypokalemia. 6. Granulocytosis. 7. Hypocalcemia. 8. Mild to moderate protein malnutrition and mild to moderate hypoalbuminemia. 9. Bilateral multilobar healthcare-associated versus ventilator-associated pneumonia. 1. Acute relapsing recurrent hypercarbic hypoxic respiratory failure with respiratory acidosis and CO2 narcosis with multiple reintubation. 2. Hypotension. 3. Probably asymptomatic nonsustained ventricular tachycardia. 4. Ventilator-dependent respiratory failure. 5. Multilobar bilateral healthcare-associated versus ventilator-associated aspiration multilobar bilateral pneumonia and infiltrate and pleural effusion. 6. A 0.3 cm right upper lobe nodule. 7. History of hypertension. 8. Status post uncontrolled hypertension. 9. Hypothyroidism. 10. History of dyslipidemia. 11. History of poor compliance. 12. Questionable xpi-UV-yygleprfo myocardial function with elevated troponin. 13. Status post cardiac catheterization. 14. Nonobstructive coronary artery disease. 1. Acute recurrent ventilator dependent respiratory failure with respiratory acidosis, hypercapnic hypercarbic respiratory failure. 2. Multilobar bilateral pneumonia, healthcare-associated pneumonia versus ventilator-associated pneumonia. 3. Transient hypotension. 4. Ventilator-dependent respiratory failure. 5. Leukopenia and leukocytosis. 6. Granulocytosis. 7. Normocytic anemia. 8. Transaminitis. 9. Hypertensive cardiovascular disease with left ventricular hypertrophy. 10. Pleural effusion. 11. Pulmonary vascular congestion and congestive heart failure. 1. Recurrent relapsing acute ventilator-dependent hypoxic hypercarbic respiratory failure with severe respiratory acidosis. 2. Questionable non-ST elevation myocardial infarction with elevated troponin. 3. Status post cardiac catheterization. 4. Left ventricle ejection fraction of 60%. 5. 60 to 70% stenosis of the proximal portion of the second diagonal vessel. 6. Bibasilar bilateral multilobar possible aspiration versus ventilator-dependent pneumonia and pleural effusion. 7. Cardiomegaly. 8. Mild pulmonary vascular congestion. 9. Acute exacerbation of chronic obstructive pulmonary disease with reintubation secondary to recurrent relapsing acute hypoxic, hypercapnic respiratory failure with CO2 narcosis and hypercapnia. 10. Possible non-ST elevation myocardial infarction. 11. Severe sepsis with ventilator-dependent respiratory failure and bibasilar bilateral multilobar healthcare-associated versus ventilator-associated pneumonia with acute exacerbation of chronic obstructive pulmonary disease. 12. Possible diastolic congestive heart failure. 13. Low-grade fever. 14. Tachycardia. 15. Tachypnea. 16. Leukocytosis with leukopenia and normocytic anemia. 17. Granulocytosis. 18. Hypokalemia. 19. Hypomagnesemia. 20. Hypocalcemia. 21. Mild oropharyngeal dysphagia with byu-vu-gtxwgnmi risk for aspiration due to minimal fatigue, minimal oral residue, missing teeth, and multiple swallows needed per single bolus. 22. Hypothyroidism. 23. History of hypertension. 24. Hypovitaminosis D. 25. Hyperlipidemia. 26. Inotropic, pressor-dependent hypotension. 27. Toxic metabolic encephalopathy secondary to hypercarbia, hypoxemia, and respiratory acidosis. 1. Recurrent acute relapsing hypoxic hypercarbic hypercapnic respiratory failure, ventilator requiring and ventilator-dependent. 2. Ventilator-dependent and ventilator-requiring hypoxic and hypercarbic respiratory failure with carbon dioxide narcosis and hypoxemia and confusion and obtundation. 3. Hypotension. 4. Transient uncontrolled hypertension and hypertensive urgency. 5. Leukocytosis with granulocytosis. 6. Normocytic anemia. 7. Severe respiratory acidosis. 8. Ventilator-dependent respiratory failure. 9. Hypokalemia. 10. Questionable acute wjt-XR-homowdhvc myocardial infarction with elevated troponin. 11. Transaminitis. 12. Healthcare-associated, ventilator-dependent multilobar bilateral pneumonia with volume loss and minimal right apical scarring. 13. Right upper lobe nodule. 14. Cardiomegaly. 15. Thyromegaly with thyroid calcification. 16. Degenerative joint disease of the spine. 17. T11-T12 subacute compression deformity. 18. Left lower chest and left upper anterior abdominal wall lipoma. 19. Adrenal gland hypertrophy. 20. Feeding dysfunction. 21. Status post left internal jugular triple-lumen catheter central line placement. 22. Questionable lateral ischemic changes on the EKG with left ventricular hypertrophy. 23. Severe sepsis with ventilator-dependent respiratory failure secondary to bilateral multilobar healthcare-associated versus ventilator-dependent pneumonia. 24. Acute exacerbation of chronic obstructive pulmonary disease. 25. Hypovitaminosis D. 26. Dyslipidemia. 27. History of constipation. 1. Questionable and possible steroid versus ICU psychosis with episodic confusion. 2. Acute exacerbation of chronic obstructive pulmonary disease. 3. Status post ventilator-dependent acute hypoxic hypercarbic respiratory failure. 4. Severe respiratory acidosis. 5. Uncontrolled hypertension. 6. Transient tachycardia. 7. Tachypnea. 8. Hypoxemia. 9. Transient leukopenia. 10. Granulocytosis. 11. Severe respiratory acidosis with hypercarbia, hypercapnia and CO2 narcosis with hypoxemia. 12. Refractory acute exacerbation of ldhkl-ff-mkxncbk hypoxic hypercarbic respiratory failure with refractory slow resolving respiratory acidosis. 13. Metabolic alkalosis. 14. Steroid-induced hyperglycemia. 15. Transaminitis. 16. Hypovitaminosis D. 17. Acute exacerbation of chronic obstructive pulmonary disease with hyperinflation. 18. Questionable and possible ICU versus steroid psychosis. 1. Status post ventilator-dependent respiratory failure secondary to acute hypoxic hypercarbic respiratory failure with respiratory acidosis. 2. Acute exacerbation of chronic obstructive pulmonary disease. 3. Recurrent evixr-qv-khyqxia hypoxic hypercarbic respiratory failure with persistent hypercarbia and hypoxemia and respiratory acidosis. 4. Tachycardia. 5. Uncontrolled hypertension. 6. Tachypnea. 7. Hypoxemia. 8. Leukopenia. 9. Granulocytosis. 10. Persistent recurrent dmglq-hx-drifiyn and acute recurrent hypoxic hypercarbic respiratory failure with respiratory acidosis. 11. Metabolic alkalosis. 12. Hyperglycemia. 13. Transaminitis. 14. Hypovitaminosis D. 15. Non-hemolyzed hyperkalemia. 16. Constipation. 17. Hypothyroidism. 18. Mild oropharyngeal dysphagia with vqr-jb-yorkmzap aspiration risk secondary to minimal fatigue, minimal oral residue and missing teeth. 1. Acute exacerbation of chronic obstructive pulmonary disease. 2. Relapsing recurrent hypercarbia and respiratory acidosis. 3. Mild normocytic anemia with granulocytosis. 4. Non-hemolyzed hyperkalemia. 5. Metabolic alkalosis with rising pCO2. 6. Hyperglycemia. 7. Transaminitis. 8. Hypovitaminosis D. 9. Chronic obstructive pulmonary disease with pulmonary hyperinflation. 10. Left ventricular hypertrophy with repolarization abnormalities and possible anterior ischemic changes on the EKG. 11. Status post ventilator dependent. 12. Acute hypoxic hypercarbic respiratory failure with respiratory acidosis. 13. Acute exacerbation of chronic obstructive pulmonary disease with acute hypoxic respiratory failure with hypercapnia. 14. Acute exacerbation of chronic obstructive pulmonary disease with acute ventilator respiratory failure with hypercapnia. 15. Hypertensive cardiovascular disease with ejection fraction of 68%. 16. Concentric left ventricular hypertrophy with grade I abnormal relaxation patterns. 17. Moderately sclerotic aortic valve. 18. Moderate mitral regurgitation with moderately thickened mitral valve. 19. Trace tricuspid regurgitation. 1. Acute ventilator-dependent acute hypercarbic, hypoxemic respiratory failure and carbon dioxide narcosis. 2. Hypertension. 3. Persistent recurrent, refractor hypercarbia and mild respiratory acidosis. 4. Tachypnea. 5. Hypertension. 6. Mild normocytic anemia. 7. Granulocytosis. 8. Mild non-hemolyzed hyperkalemia. 9. Prerenal kidney injury. 10. Hyperglycemia. 11. Transaminitis. 12. Hypovitaminosis D. 13. Left ventricular ejection fraction of 68% with concentric left ventricular hypertrophy and grade 1 abnormal relaxation pattern. 14. Moderately dilated left atrium. 15. Moderately sclerotic aortic valve. 16. Moderately thickened mitral valve with moderate mitral regurgitation. 17. Hyperlipidemia. 18. Constipation. 1. Acute hypercarbic hypoxic respiratory failure with respiratory acidosis and hypercarbia and carbon dioxide narcosis. 2. Acute exacerbation of chronic obstructive pulmonary disease. 3. Acute ventilator-dependent hypercarbic hypercapnic hypoxic respiratory failure with severe respiratory acidosis. 4. Bronchospasm. 5. Severe acute exacerbation of chronic obstructive pulmonary disease. 6. Tachycardia. 7. Tachypnea. 8. Fever. 9. Febrile illness. 10. Questionable systemic inflammatory response syndrome. 11. Mild normocytic anemia. 12. Granulocytosis. 13. Recurrent hypercarbia and hypercapnia with mild respiratory acidosis and recurrent respiratory acidosis. 14. Prerenal kidney injury. 15. Transaminitis. 16. Hypovitaminosis D. 17. History of hypothyroidism. 18. Left ventricular ejection fraction of 68%. 19. Moderate concentric left ventricular hypertrophy. 20. Grade 1 abnormal relaxation pattern. 21. Moderately dilated left atrium. 22. Moderately sclerotic aortic valve. 23. Moderately thickened mitral valve with moderate mitral regurgitation. 24. Mild oropharyngeal dysphagia with low to moderate risk for aspiration due to minimal fatigue, minimal oral residue, missing teeth and multiple swallows. 25. History of hyperlipidemia. 1. Status post acute ventilator dependent hypercarbic hypoxic respiratory failure with carbon dioxide narcosis and respiratory acidosis. 2. Status post extubation. 3. Hypertension. 4. Mild normocytic anemia with granulocytosis. 5. Acute hypercarbic hypoxic ventilator-dependent respiratory failure, status post extubation with respiratory acidosis, hypercarbia and carbon dioxide narcosis. 6. Prerenal kidney injury. 7. Transaminitis. 8. Hypovitaminosis D. 9. Hypertensive cardiovascular disease with repolarization abnormalities. 10. Left ventricular ejection fraction of 68%. 11. Moderate concentric left ventricular hypertrophy with grade 1 abnormal relaxation pattern. 12. Moderately dilated left atrium. 13. Moderately sclerotic aortic valve. 14. Moderately thickened mitral valve with moderate mitral regurgitation. 15. Trace tricuspid regurgitation. 16. Carbon dioxide narcosis. 17. Acute exacerbation of severe chronic obstructive pulmonary disease. 18. History of hypothyroidism. 19. History of pulmonary hypertension. 20. High-grade fever of 101 degrees Fahrenheit. 21. Deconditioning. 22. Gait dysfunction. 23. History o hyperlipidemia. 24. History of constipation. 25. History of hypovitaminosis D. 1. Acute hypercarbic hypercapnic hypoxic ventilator-dependent respiratory failure with severe respiratory acidosis. 2. Resolving bronchospasm. 3. Fever of 100.8. 4. Mild normocytic anemia. 5. Granulocytosis. 6. Hypercarbia. 7. CO2 narcosis. 8. Transaminitis. 9. History of hypothyroidism. 10. Hypertensive cardiovascular disease with T-wave inversion I, aVL, V1 to V6. 11. Borderline hypokalemia. 1. Ventilator-dependent acute hypercarbic hypercapnic hypoxic respiratory failure with severe respiratory acidosis. 2. Bronchospasm. 3. Acute exacerbation of chronic obstructive pulmonary disease. 4. Normocytic anemia with granulocytosis. 5. Hypercarbia and hypercapnia. 6. Carbon dioxide narcosis. 7. Severe respiratory acidosis and hypoxemia. 8. Metabolic alkalosis. 9. Hyperglycemia. 10. Transaminitis. 11. Mild acute exacerbation of right-sided diastolic congestive heart failure with elevated BNP. 12. Indeterminate troponin. 13. Sinus tachycardia. 14. Left axis deviation. 15. Ventilator-dependent respiratory failure. 16. History of hypertension, hyperlipidemia, hypothyroidism, hypovitaminosis D. 17.Mild oropharyngeal dysphagia with fhw-ep-tcccfdfw risk for aspiration due to minimal fatigue, minimal oral residue, missing teeth and multiple swallows needed per single bolus PLAN: At this time, patient was seen by the Swallow and Speech evaluation. Patient was seen by Gastroenterology. Patient will be scheduled for gastrostomy tube placement after further Gastroenterology evaluation. CURRENT MEDICATIONS: Aspirin 325 daily; Atrovent nebulizer 0.5 mg every 6 hours and every 2 hours p.r.n.; patient is on D5 half-normal at 100 mL an hour; Drisdol 50,000 weekly; Lipitor 10 mg daily; Lovenox 40 mg subcu daily; MiraLax 17 g daily; morphine 1 mg IV every 6 hours p.r.n. Patient is given potassium supplementation . Patient is on Protonix 40 IV every 12 hours, Pulmicort nebulizer 1 mg every 12 hours, Tylenol p.r.n. suppository, Xopenex nebulizer 0.63 mg every 6 hours and every 2 p.r.n., Zofran 4 mg IV every 4 p.r.n. At present, patient is awaiting for a tracheostomy placement and once patient is stable and cleared by all subspecialty, patient will be considered for discharge to long-term acute care facility of the patient's family's choice. Dictated and electronically signed, not read. Garett Rodríguez MD MTDD
[2018-01-01 05:40] LABS: ARTERIAL BLOOD GAS HEMOGLOBIN 9.5 g/dL (11.7-17.4); ARTERIAL BLOOD GAS O2 CAPACITY 13.2 mL/dl (16-24); ARTERIAL BLOOD GAS O2 CONTENT 13.2 ML/dl (15-23); ARTERIAL BLOOD GAS O2 SAT 100.3 % (95-98); ARTERIAL BLOOD GAS PCO2 43 mm/Hg (35-45); ARTERIAL BLOOD GAS PH 7.48 (7.35-7.45); ARTERIAL BLOOD GAS TCO2 33.3 mmol.L (22-28)
[2018-01-01 06:48] LABS: EOS # 0.1 (0.0-0.7); GRAN # 4.01 (1.4-6.5); GRAN % 68.5 % (50.0-68.0); HEMOGLOBIN 9.2 g/dL (12.0-16.0); LYMPH # 1.1 (1.2-3.4); LYMPH % 18.9 % (22.0-35.0); MEAN CELL VOLUME 90.3 fl (80.0-105.0); MEAN CORPUSCULAR HEMOGLOBIN 29.7 pg (25.0-35.0); MEAN CORPUSCULAR HGB CONC 32.9 g/dl (31.0-37.0); MEAN PLATELET VOLUME 11.2 fl (7.0-11.0); MONO # 0.6 (0.1-0.6); MONO % 10.6 % (1.0-6.0); RBC 3.1 10^6/uL (3.5-6.1); RED CELL DISTRIBUTION WIDTH 14.6 % (11.5-14.5); WHITE BLOOD COUNT 5.9 10^3/ul (4.5-11.0)
[2018-01-01] MEDS: Dextrose 5%/0.9% NS 1,000 ML IV SCH ×3 (06:51→18:06)
[2018-01-01 07:30] LABS: ALBUMIN 2.6 g/dL (3.0-4.8); ALT/SGPT 30 U/L (7-56); AST/SGOT 38 U/L (14-36); BILIRUBIN,DIRECT 0.1 mg/dL (0.0-0.4); BLOOD UREA NITROGEN 5 mg/dL (7-21); CALCIUM 7.6 mg/dL (8.4-10.5); GFR AFRICAN-AMERICAN > 60; GFR NON-AFRICAN AMERICAN > 60
[2018-01-01] MEDS ORDERED: Potassium Phosphate 15 MMOLE in Sodium Chloride 0.9% 250 ML IVPB ONE (07:44)
[2018-01-01] MEDS: Budesonide 0.5 mg/2 ml Inhal Susp UD IH SCH ×2 (07:47→19:34)
--- NOTE | 2018-01-01 08:18 | PN ---
DATE: 12/31/2017 A 72-year-old female, seen in CCU, bed number 3, after COPD and acute exacerbation and acute status post tracheostomy. Patient is seen at bedside on T-piece. Patient is comfortable and as much has improved. Trach is noted be clean and dry. No active drainage. Suture line intact. The patient, as discussed, will be slowly weaned from respiratory-assisted breathing and will be followed with possible change and decannulation and slowly reducing in size of tracheostomy tube. At this particular point, as discussed with family members, the tracheostomy tube is necessary to maintain pulmonary toilet. Jitendra Yin DO
--- NOTE | 2018-01-01 08:41 | CP.PCM.PN ---
Subjective - Date & Time of Evaluation Date of Evaluation: 01/01/18 Time of Evaluation: 08:39 - Subjective Subjective: ENT progress note for Dr. Anjel Meek, PGY-1 Pt S & E at bedside at 0720 Pt resting comfortably in bed. Asking to eat/drink, talk. No current pain. Trach dressing is dried/saturated with sanguinous output. Objective - Vital Signs/Intake and Output Vital Signs (last 24 hours): Temp Pulse Resp BP Pulse Ox 99.3 F 79 19 100/43 L 96 01/01/18 04:00 01/01/18 06:02 01/01/18 04:59 01/01/18 06:02 01/01/18 06:02 Intake and Output: 01/01/18 01/01/18 06:59 18:59 Intake Total 1200 Output Total 700 Balance 500 - Medications Medications: Current Medications Acetaminophen (Tylenol 650 Mg Supp) 650 mg RC Q6H PRN PRN Reason: TEMP>=99.5F Last Admin: 12/17/17 08:30 Dose: 650 mg Aspirin (Aspirin) 325 mg PO DAILY [facility] Last Admin: 12/31/17 09:24 Dose: Not Given Atorvastatin Calcium (Lipitor) 10 mg PO DIN [facility] Last Admin: 12/31/17 17:28 Dose: Not Given Budesonide (Pulmicort Respules) 1 mg IH [id number] [facility] Last Admin: 01/01/18 07:47 Dose: 1 mg Enoxaparin Sodium (Lovenox) 40 mg SC DAILY [facility] PRN Reason: Protocol Last Admin: 12/31/17 09:35 Dose: 40 mg Ergocalciferol (Drisdol 50,000 Intl Units Cap) 1 cap PO Q7D [facility] Last Admin: 12/27/17 10:03 Dose: Not Given Dextrose/Sodium Chloride (Dextrose 5%/0.9% Ns 1000 Ml) 1,000 mls @ 100 mls/hr IV .Q10H [facility] Last Admin: 01/01/18 06:51 Dose: 100 mls/hr Potassium Phosphate 15 mmole/ (Sodium Chloride) 255 mls @ 42.5 mls/hr IVPB ONCE ONE Stop: 01/01/18 13:43 Last Admin: 01/01/18 08:15 Dose: 42.5 mls/hr Potassium Chloride (Potassium Chloride 20 Meq/100 Ml) 20 meq in 100 mls @ 50 mls/hr IVPB ONCE ONE Stop: 01/01/18 09:44 Last Admin: 01/01/18 08:16 Dose: 50 mls/hr Ipratropium [place] (Atrovent) 0.5 mg IH [id number] [facility] Last Admin: 01/01/18 07:47 Dose: 0.5 mg Ipratropium [place] (Atrovent) 0.5 mg IH Q2H PRN PRN Reason: Shortness of Breath Levalbuterol HCl (Xopenex) 0.63 mg IH Q2 PRN PRN Reason: Shortness of Breath Levalbuterol HCl (Xopenex) 0.63 mg IH 0200,0800,1400,2000 [facility] Last Admin: 01/01/18 07:48 Dose: 0.63 mg Morphine Sulfate (Morphine) 1 mg IVP Q6H PRN PRN Reason: Pain, severe (8-10) Ondansetron HCl (Zofran Inj) 4 mg IVP Q4H PRN PRN Reason: Nausea/Vomiting Pantoprazole Sodium (Protonix Inj) 40 mg IVP Q12 [facility] Last Admin: 12/31/17 21:11 Dose: 40 mg Polyethylene Glycol (Miralax) 17 gm PO DAILY [facility] Last Admin: 12/31/17 09:24 Dose: Not Given - Labs Labs: 01/01/18 06:15 01/01/18 06:15 PT 13.3 SECONDS (9.4-12.5) H 12/30/17 10:45 INR 1.15 (0.93-1.08) H 12/30/17 10:45 APTT 28.1 Seconds (25.1-36.5) 12/30/17 10:45 - Constitutional Appears: Non-toxic, No Acute Distress - Head Exam Head Exam: ATRAUMATIC, NORMAL INSPECTION, NORMOCEPHALIC - Eye Exam Eye Exam: EOMI, Normal appearance - ENT Exam ENT Exam: Mucous Membranes Moist, Normal Exam - Neck Exam Neck Exam: absent: Tenderness Additional comments: Tracheostomy in place, dressing saturated with dried sanguinous strike through, no secretions noted - Respiratory Exam Respiratory Exam: NORMAL BREATHING PATTERN (on mechanical vent) - Cardiovascular Exam Cardiovascular Exam: REGULAR RHYTHM, +S1, +S2 - GI/Abdominal Exam GI & Abdominal Exam: Soft. absent: Tenderness - Neurological Exam Neurological Exam: Alert, Awake - Psychiatric Exam Additional comments: tracheostomy- cannot vocalize - Skin Skin Exam: Dry, Intact, Normal Color, Warm Assessment and Plan - Assessment and Plan (Free Text) Assessment: 72F w/PMH sig for COPD exacerbation with respiratory failure, s/p tracheostomy POD#2 Plan: Pulmonary toilet Swallow eval If passes, ok to eat from ENT standpoint wean off vent when meets criteria May change/decannulate/reduce size of tracheostomy as per ENT attending Further mgmt as per primary/ICU teams Will YODIT attending [place], PGY-1
[2018-01-01] MEDS ORDERED: Potassium Chloride 40 mEq/30 ml LIQ UD PO ONE (08:42)
[2018-01-01] MEDS ORDERED: Magnesium Sulfate 1 gm in D5W 1 GM/100 ML BAG IVPB ONE (09:18)
[2018-01-01] MEDS ORDERED: Propofol 10 mg/ml Inj (20 ML) ONE (09:32)
[2018-01-01] MEDS ORDERED: Etomidate 20 mg/10ml Inj IV ONE (09:32)
--- NOTE | 2018-01-01 10:01 | CP.PCM.PN ---
<JaimeTinym - Last Filed: 01/01/18 11:13> Subjective - Date & Time of Evaluation Date of Evaluation: 01/01/18 Time of Evaluation: 10:01 - Subjective Subjective: Medicine Progress Note - Dr Rodríguez Service Patient seen and examined. Per nursing no acute events overnight. Patient failed swallow eval, and is NPO. Patient for PEG tube this morning with GI. Offers no complaints. Denies pain, headache, dizziness, cp, palpitations, sob, urinary symptoms. Objective - Vital Signs/Intake and Output Vital Signs (last 24 hours): Temp Pulse Resp BP Pulse Ox 99.3 F 79 19 100/43 L 96 01/01/18 04:00 01/01/18 06:02 01/01/18 04:59 01/01/18 06:02 01/01/18 06:02 Intake and Output: 01/01/18 01/01/18 06:59 18:59 Intake Total 1200 Output Total 700 Balance 500 - Medications Medications: Current Medications Acetaminophen (Tylenol 650 Mg Supp) 650 mg RC Q6H PRN PRN Reason: TEMP>=99.5F Last Admin: 12/17/17 08:30 Dose: 650 mg Aspirin (Aspirin) 325 mg PO DAILY [facility] Last Admin: 12/31/17 09:24 Dose: Not Given Atorvastatin Calcium (Lipitor) 10 mg PO DIN [facility] Last Admin: 12/31/17 17:28 Dose: Not Given Budesonide (Pulmicort Respules) 1 mg IH [id number] [facility] Last Admin: 01/01/18 07:47 Dose: 1 mg Enoxaparin Sodium (Lovenox) 40 mg SC DAILY [facility] PRN Reason: Protocol Last Admin: 12/31/17 09:35 Dose: 40 mg Ergocalciferol (Drisdol 50,000 Intl Units Cap) 1 cap PO Q7D [facility] Last Admin: 12/27/17 10:03 Dose: Not Given Dextrose/Sodium Chloride (Dextrose 5%/0.9% Ns 1000 Ml) 1,000 mls @ 100 mls/hr IV .Q10H [facility] Last Admin: 01/01/18 06:51 Dose: 100 mls/hr Potassium Phosphate 15 mmole/ (Sodium Chloride) 255 mls @ 42.5 mls/hr IVPB ONCE ONE Stop: 01/01/18 13:43 Last Admin: 01/01/18 08:15 Dose: 42.5 mls/hr Magnesium Sulfate/Dextrose (Magnesium Sulfate 1 Gm/100 Ml D5w) 1 gm in 100 mls @ 100 mls/hr IVPB ONCE ONE Stop: 01/01/18 10:17 Ipratropium [place] (Atrovent) 0.5 mg IH [id number] [facility] Last Admin: 01/01/18 07:47 Dose: 0.5 mg Ipratropium [place] (Atrovent) 0.5 mg IH Q2H PRN PRN Reason: Shortness of Breath Levalbuterol HCl (Xopenex) 0.63 mg IH Q2 PRN PRN Reason: Shortness of Breath Levalbuterol HCl (Xopenex) 0.63 mg IH 0200,0800,1400,2000 [facility] Last Admin: 01/01/18 07:48 Dose: 0.63 mg Morphine Sulfate (Morphine) 1 mg IVP Q6H PRN PRN Reason: Pain, severe (8-10) Ondansetron HCl (Zofran Inj) 4 mg IVP Q4H PRN PRN Reason: Nausea/Vomiting Pantoprazole Sodium (Protonix Inj) 40 mg IVP Q12 [facility] Last Admin: 12/31/17 21:11 Dose: 40 mg Polyethylene Glycol (Miralax) 17 gm PO DAILY [facility] Last Admin: 12/31/17 09:24 Dose: Not Given - Labs Labs: 01/01/18 06:15 01/01/18 06:15 PT 13.3 SECONDS (9.4-12.5) H 12/30/17 10:45 INR 1.15 (0.93-1.08) H 12/30/17 10:45 APTT 28.1 Seconds (25.1-36.5) 12/30/17 10:45 - Additional Findings Additional findings: - Constitutional Appears: Well, Non-toxic, No Acute Distress - Head Exam Head Exam: ATRAUMATIC, NORMOCEPHALIC - Eye Exam Eye Exam: Normal appearance. absent: Conjunctival injection, Scleral icterus - ENT Exam ENT Exam: Mucous Membranes Moist - Neck Exam Additional comments: tracheostomy tube in appropriate position, no active bleeding - Respiratory Exam Respiratory Exam: NORMAL BREATHING PATTERN. Decreased breath sounds. absent: Accessory Muscle Use, Respiratory Distress - Cardiovascular Exam Cardiovascular Exam: +S1, +S2 - GI/Abdominal Exam GI & Abdominal Exam: Soft. absent: Distended - Neurological Exam Neurological Exam: Alert, Awake, Oriented x3 - Psychiatric Exam Psychiatric exam: Normal Affect, Normal Mood - Skin Skin Exam: Dry, Intact, Normal Color, Warm Assessment and Plan - Assessment and Plan (Free Text) Assessment: A/P: Patient is a 72 yo AA F with PMH of COPD (with prior intubations for exacerbations), asthma, HTN, and pulmonary HTN who presented to [facility] [place] with worsening shortness of breath, found to be in hypercarbic respiratory failure, failing Bipap in ED, then intubated and placed on mechanical ventilation. She is s/p extubation. Patient was re-intubated 2/2 to respiratory acidosis and hypercarbia. Intubated and off sedation at this time. Patient has a trach and is waiting for peg tube. Plan: Acute exacerbation of COPD with Acute Hypoxic respiratory failure with hypercapnea -s/p Tracheostomy POD#2, patient currently on CPAP -Failed swallow eval, Patient for PEG tube placement today -CT head showed non specific white matter changes (see full report) -CT chest showed bibasilar atelectasis, possible left lung infiltrate, superimposed pneumonia cannot be excluded (see full report) -Xopenex and Ipratroprium Q6H KRISTINE, Q2H PRN SOB -Budesanide 1mg Q12H KRISTINE -Clinical Audiologist referral to establish tube feed goals, aspiration precautions -Pulmonary on consult, help appreciated -ENT on consult, help appreciated -GI on consult, help appreciated Anemia -Hgb trending down, today 9.2 -Baseline hgb approximately 11.0 -No active signs of bleeding at this time -Anemia studies and stool occult ordered -Will transfuse one unit of PRBCs and monitor Severe Sepsis 2/2 HCAP -Leukocytosis resolved -S/P Antibiotics: Doxycycline 100mg Q12, Vancomycin 1gm Q12H, Cefepime 2gm Q8H -Patient completed course of antibiotics; discontinued at this time -Blood cultures showing no growth -Urine cultures showing no growth, sputum cultures no growth -ID on consult, help appreciated Altered Mental Status (improved) -Likely due to Toxic metabolic encephalopathy 2/2 chronic CO2 retention -Head CT showed non specific white matter changes (see full report) -Neurology on consult, help appreciated -MRI of brain ordered Elevated Blood Pressures -BPs running low, patient on D5 1/2 NS at 100cc/hr -Continue to monitor Relapsing recurrent hypercarbia and respiratory acidosis -ABG reviewed this morning -Continue to Monitor daily ABGs -Pulmonary on consult, help appreciated Elevated Troponin, SVT -Troponin 0.30 -> 0.16 -Concern for possible NSTEMI -Cardiac cath showed no acute findings -Patient went into SVT over the weekend -Started on Amiodarone 200mg Q12H which is now discontinued -Cardiology on consult, help appreciated Diastolic CHF, Moderate Mitral Regurgitation -Echo showed normal LVEF with Moderate Mitral Regurgitation -Cardiology consulted, help appreciated -Continue ASA and Lipitor Transaminitis -LFTs normalized, Hep panel negative -Will continue to monitor Hypokalemia -Potassium 3.3 today -Repleted with potassium phos -Continue to monitor Hypophosphatemia -Phos 2.4 -Repleted with K phos -Will continue to monitor Hypocalcemia -Calcium 7.6 -Continue to monitor Hypothyroidism -Continue Synthroid 50mcg daily Vitamin D Deficiency -Continue Ergocalciferol 1 tab PO Q7D GI/DVT ppx -Protonix 40mg Q12 IVP -Lovenox 40 SC daily (on hold for peg tube placement) DISPO: Patient is s/p tracheostomy, failed swallow evaluation yesterday, awaiting peg tube placement with GI. Will monitor patient to see if tolerating tube feeds and plan to wean off the vent. Will transfuse 1 unit PRBCs today, and monitor hgb. Patient is for LTACH once medically cleared. Plan discussed with Dr Marcos Sandoval DO PGY-1 <Garett Rodríguez - Last Filed: 01/01/18 21:26> Objective - Vital Signs/Intake and Output Vital Signs (last 24 hours): Temp Pulse Resp BP Pulse Ox 98.9 F 86 24 124/72 99 01/01/18 16:00 01/01/18 19:59 01/01/18 14:53 01/01/18 20:00 01/01/18 19:59 Intake and Output: 01/01/18 01/02/18 18:59 06:59 Intake Total 2110 Output Total 1050 Balance 1060 - Labs Labs: 01/01/18 06:15 01/01/18 06:15 PT 13.3 SECONDS (9.4-12.5) H 12/30/17 10:45 INR 1.15 (0.93-1.08) H 12/30/17 10:45 APTT 28.1 Seconds (25.1-36.5) 12/30/17 10:45 Attending/Attestation - Attestation I have personally seen and examined this patient.: Yes I have fully participated in the care of the patient.: Yes I have reviewed all pertinent clinical information, including history, physical exam and plan: Yes Notes (Text): Please see/read my dictated notes.
[2018-01-01] MEDS: POLYETHYLENE GLYCOL 3350 17 GM/Dose PACKET PO SCH (10:15)
--- NOTE | 2018-01-01 10:36 | RAD ---
HISTORY: f/u COMPARISON: 12/31/2017 FINDINGS: LUNGS: Small effusions and minimal bibasilar atelectasis PLEURA: No significant pleural effusion identified, no pneumothorax apparent. CARDIOVASCULAR: Normal. OSSEOUS STRUCTURES: No significant abnormalities. VISUALIZED UPPER ABDOMEN: Normal. OTHER FINDINGS: Left-sided central line unchanged. IMPRESSION: Small effusions and minimal bibasilar atelectasis
[2018-01-01 11:11] LABS: IRON 11 ug/dL (45-180)
[2018-01-01 11:20] LABS: % IRON SATURATION 7 % (20-55); TOTAL IRON BINDING CAPACITY 162 ug/dL (265-497)
--- NOTE | 2018-01-01 11:42 | CP.CCUPN ---
<Venancio Olivera - Last Filed: 01/01/18 11:38> CCU Subjective - Physician Review Events Since Last Encounter (Free Text): 01/01/18 11:39 Patient seeen and examined at bedside - no acute overnight events. Patient is doing well this AM. No complaints - failed swallow eval yesterday, due for PEG today. CCU Objective - Vital Signs / Intake & Output Intake and Output (Last 8hrs): Intake & Output 12/31/17 01/01/18 01/01/18 22:59 06:59 14:59 Intake Total 1300 1200 Output Total 1100 700 Balance 200 500 Weight 58.513 kg Intake: IV 1300 1200 Left Internal Jugular 1300 1200 Oral 0 0 Output: Urine 1100 700 Urethral ([place]) 1100 700 Emesis 0 Other: # Bowel Movements 0 0 - Physical Exam Head: Positive for: Atraumatic, Normocephalic Pupils: Positive for: PERRL. Negative for: Non-Reactive, Pinpoint Extroacular Muscles: Positive for: EOMI. Negative for: Gaze Palsy, Entrapment Conjunctiva: Positive for: Normal. Negative for: Injected, Icteric Mouth: Positive for: Moist Mucous Membranes, Normal Lips, Normal Tounge. Negative for: Drooling Pharnyx: Positive for: Other (face and jaw swollen) Nose (External): Positive for: Atraumatic. Negative for: Abrasion, Laceration Nose (Internal): Positive for: Normal Inspection, No Active Bleeding. Negative for: Epistaxis Neck: Positive for: Normal Range of Motion. Negative for: Meningeal Signs, MIDLINE TENDERNESS, Paraspinal Tenderness, JVD Respiratory/Chest: Positive for: Clear to Auscultation, Good Air Exchange, Decreased Breath Sounds (mildly decreased breath sounds all bauer, again improved over prior exams). Negative for: Respiratory Distress, Accessory Muscle Use, Wheezes (no further wheezing appreciated on exam today), Rales, Rhonchi Cardiovascular: Positive for: Regular Rate and Rhythm, Normal S1, S2. Negative for: Murmurs, Irregular Rhythm, Tachycardic, Bradycardic Abdomen: Negative for: Tenderness, Distention, Peritoneal Signs Back: Positive for: Normal Inspection. Negative for: CVA Tenderness, Midline Tenderness, Paraspinal Tenderness Upper Extremity: Positive for: Normal Inspection, Normal ROM, NORMAL PULSES. Negative for: Cyanosis, Edema, Tenderness, Swelling, Erythema, Deformity Lower Extremity: Positive for: Normal Inspection, NORMAL PULSES, Normal ROM. Negative for: Edema, CALF TENDERNESS, Cyanosis, Tenderness, Swelling, Erythema, Deformity Neurological: Positive for: GCS=15, Speech Normal, Motor Func Grossly Intact, Normal Sensory Function, Other (following all commands appropriately, no appreciable lethargy/somnolence) Skin: Positive for: Warm, Dry, Normal Color. Negative for: Rashes Psychiatric: Positive for: Alert, Oriented x 3 (x4 (self, location, year, president)), Normal Insight, Normal Concentration, Normal Affect, Normal Mood - Medications Active Medications: Active Medications Generic Name Dose Route Start Last Admin Trade Name Freq PRN Reason Stop Dose Admin Acetaminophen 650 mg 12/16/17 19:09 12/17/17 08:30 Tylenol 650 Mg Supp RC 650 mg Q6H PRN Administration TEMP>=99.5F Aspirin 325 mg 12/20/17 10:00 01/01/18 10:15 Aspirin PO Not Given DAILY [facility] Atorvastatin Calcium 10 mg 12/19/17 17:00 12/31/17 17:28 Lipitor PO Not Given DIN [facility] Budesonide 1 mg 12/22/17 20:00 01/01/18 07:47 Pulmicort Respules IH 1 mg [id number] DAVE Administration Enoxaparin Sodium 40 mg 12/17/17 10:00 12/31/17 09:35 Lovenox SC 40 mg DAILY DAVE Administration Protocol Ergocalciferol 1 cap 12/20/17 10:00 12/27/17 10:03 Drisdol 50,000 Intl Units Cap PO Not Given Q7D DAVE Dextrose/Sodium Chloride 1,000 mls @ 100 mls/hr 12/30/17 16:00 01/01/18 10:21 Dextrose 5%/0.9% Ns 1000 Ml IV 100 mls/hr .Q10H DAVE Administration Potassium Phosphate 15 mmole/ 255 mls @ 42.5 mls/hr 01/01/18 07:44 01/01/18 08:15 Sodium Chloride IVPB 01/01/18 13:43 42.5 mls/hr ONCE ONE Administration Ipratropium [place] 0.5 mg 12/22/17 14:00 01/01/18 07:47 Atrovent IH 0.5 mg [id number] DAVE Administration Ipratropium [place] 0.5 mg 12/22/17 12:21 Atrovent IH Q2H PRN Shortness of Breath Levalbuterol HCl 0.63 mg 12/16/17 15:37 Xopenex IH Q2 PRN Shortness of Breath Levalbuterol HCl 0.63 mg 12/22/17 08:00 01/01/18 07:48 Xopenex IH 0.63 mg 0200,0800,1400,2000 DAVE Administration Morphine Sulfate 1 mg 12/31/17 10:05 Morphine IVP Q6H PRN Pain, severe (8-10) Ondansetron HCl 4 mg 12/16/17 19:09 Zofran Inj IVP Q4H PRN Nausea/Vomiting Pantoprazole Sodium 40 mg 12/23/17 22:00 01/01/18 10:20 Protonix Inj IVP 40 mg Q12 DAVE Administration Polyethylene Glycol 17 gm 12/19/17 10:30 01/01/18 10:15 Miralax PO Not Given DAILY DAVE - Patient Studies Lab Studies: Lab Studies 01/01/18 01/01/18 01/01/18 Range/Units 11:17 10:48 07:00 WBC (4.5-11.0) 10^3/ul RBC (3.5-6.1) 10^6/uL Hgb (12.0-16.0) g/dL Hct (36.0-48.0) % MCV (80.0-105.0) fl MCH (25.0-35.0) pg MCHC (31.0-37.0) g/dl RDW (11.5-14.5) % Plt Count (120.0-450.0) 10^3/uL MPV (7.0-11.0) fl Gran % (50.0-68.0) % Lymph % (Auto) (22.0-35.0) % Stark % (Auto) (1.0-6.0) % Eos % (Auto) (1.5-5.0) % Baso % (Auto) (0.0-3.0) % Gran # (1.4-6.5) Lymph # (Auto) (1.2-3.4) Stark # (Auto) (0.1-0.6) Eos # (Auto) (0.0-0.7) Baso # (Auto) (0.0-2.0) K/mm3 Retic Count 0.67 (0.5-1.5) % pCO2 (35-45) mm/Hg pO2 (80-100) mm/Hg HCO3 (21-28) mmol/L ABG pH (7.35-7.45) ABG Total CO2 (22-28) mmol.L ABG O2 Saturation (95-98) % ABG O2 Content (15-23) ML/dl ABG Base Excess (-2.0-3.0) mmol/L ABG Hemoglobin (11.7-17.4) g/dL ABG Carboxyhemoglobin (0.5-1.5) % POC ABG HHb (Measured) (0-5) % ABG Methemoglobin (0.0-3.0) % ABG O2 Capacity (16-24) mL/dl Hgb O2 Saturation (95.0-98.0) % FiO2 % Sodium (132-148) mmol/L Potassium (3.6-5.0) mmol/L Chloride (98-107) mmol/L Carbon Dioxide (21-33) mmol/L Anion Gap (10-20) BUN (7-21) mg/dL Creatinine (0.7-1.2) mg/dl Est GFR ( Amer) Est GFR (Non-Af Amer) POC Glucose (mg/dL) 86 (65-110) mg/dL Random Glucose (70-110) mg/dL Calcium (8.4-10.5) mg/dL Phosphorus (2.5-4.5) mg/dL Magnesium (1.7-2.2) mg/dL Iron 11 L (45-180) ug/dL TIBC 162 L (265-497) ug/dL % Saturation 7 L (20-55) % Total Bilirubin (0.2-1.3) mg/dL Direct Bilirubin (0.0-0.4) mg/dL AST (14-36) U/L ALT (7-56) U/L Alkaline Phosphatase (38-126) U/L Total Protein (5.8-8.3) g/dL Albumin (3.0-4.8) g/dL Globulin gm/dL Albumin/Globulin Ratio (1.1-1.8) 01/01/18 01/01/18 01/01/18 Range/Units 06:17 06:15 06:15 WBC 5.9 D (4.5-11.0) 10^3/ul RBC 3.10 L (3.5-6.1) 10^6/uL Hgb 9.2 L (12.0-16.0) g/dL Hct 28.0 L (36.0-48.0) % MCV 90.3 (80.0-105.0) fl MCH 29.7 (25.0-35.0) pg MCHC 32.9 (31.0-37.0) g/dl RDW 14.6 H (11.5-14.5) % Plt Count 224 (120.0-450.0) 10^3/uL MPV 11.2 H (7.0-11.0) fl Gran % 68.5 H (50.0-68.0) % Lymph % (Auto) 18.9 L (22.0-35.0) % Stark % (Auto) 10.6 H (1.0-6.0) % Eos % (Auto) 2.0 (1.5-5.0) % Baso % (Auto) 0.0 (0.0-3.0) % Gran # 4.01 (1.4-6.5) Lymph # (Auto) 1.1 L (1.2-3.4) Stark # (Auto) 0.6 (0.1-0.6) Eos # (Auto) 0.1 (0.0-0.7) Baso # (Auto) 0.00 (0.0-2.0) K/mm3 Retic Count (0.5-1.5) % pCO2 (35-45) mm/Hg pO2 (80-100) mm/Hg HCO3 (21-28) mmol/L ABG pH (7.35-7.45) ABG Total CO2 (22-28) mmol.L ABG O2 Saturation (95-98) % ABG O2 Content (15-23) ML/dl ABG Base Excess (-2.0-3.0) mmol/L ABG Hemoglobin (11.7-17.4) g/dL ABG Carboxyhemoglobin (0.5-1.5) % POC ABG HHb (Measured) (0-5) % ABG Methemoglobin (0.0-3.0) % ABG O2 Capacity (16-24) mL/dl Hgb O2 Saturation (95.0-98.0) % FiO2 % Sodium 139 (132-148) mmol/L Potassium 3.3 L (3.6-5.0) mmol/L Chloride 101 (98-107) mmol/L Carbon Dioxide 33 (21-33) mmol/L Anion Gap 8 L (10-20) BUN 5 L (7-21) mg/dL Creatinine 0.3 L (0.7-1.2) mg/dl Est GFR ( Amer) > 60 Est GFR (Non-Af Amer) > 60 POC Glucose (mg/dL) 95 (65-110) mg/dL Random Glucose 98 (70-110) mg/dL Calcium 7.6 L (8.4-10.5) mg/dL Phosphorus 2.4 L (2.5-4.5) mg/dL Magnesium 1.9 (1.7-2.2) mg/dL Iron (45-180) ug/dL TIBC (265-497) ug/dL % Saturation (20-55) % Total Bilirubin 0.6 (0.2-1.3) mg/dL Direct Bilirubin 0.1 (0.0-0.4) mg/dL AST 38 H D (14-36) U/L ALT 30 (7-56) U/L Alkaline Phosphatase 48 (38-126) U/L Total Protein 5.2 L (5.8-8.3) g/dL Albumin 2.6 L (3.0-4.8) g/dL Globulin 2.6 gm/dL Albumin/Globulin Ratio 1.0 L (1.1-1.8) 01/01/18 12/31/17 12/31/17 Range/Units 05:30 23:54 17:06 WBC (4.5-11.0) 10^3/ul RBC (3.5-6.1) 10^6/uL Hgb (12.0-16.0) g/dL Hct (36.0-48.0) % MCV (80.0-105.0) fl MCH (25.0-35.0) pg MCHC (31.0-37.0) g/dl RDW (11.5-14.5) % Plt Count (120.0-450.0) 10^3/uL MPV (7.0-11.0) fl Gran % (50.0-68.0) % Lymph % (Auto) (22.0-35.0) % Stark % (Auto) (1.0-6.0) % Eos % (Auto) (1.5-5.0) % Baso % (Auto) (0.0-3.0) % Gran # (1.4-6.5) Lymph # (Auto) (1.2-3.4) Stark # (Auto) (0.1-0.6) Eos # (Auto) (0.0-0.7) Baso # (Auto) (0.0-2.0) K/mm3 Retic Count (0.5-1.5) % pCO2 43 (35-45) mm/Hg pO2 125.0 H (80-100) mm/Hg HCO3 32.0 H (21-28) mmol/L ABG pH 7.48 H (7.35-7.45) ABG Total CO2 33.3 H (22-28) mmol.L ABG O2 Saturation 100.3 H (95-98) % ABG O2 Content 13.2 L (15-23) ML/dl ABG Base Excess 7.7 H (-2.0-3.0) mmol/L ABG Hemoglobin 9.5 L (11.7-17.4) g/dL ABG Carboxyhemoglobin 1.9 H (0.5-1.5) % POC ABG HHb (Measured) -0.3 L (0-5) % ABG Methemoglobin 1.0 (0.0-3.0) % ABG O2 Capacity 13.2 L (16-24) mL/dl Hgb O2 Saturation 97.3 (95.0-98.0) % FiO2 30.0 % Sodium (132-148) mmol/L Potassium (3.6-5.0) mmol/L Chloride (98-107) mmol/L Carbon Dioxide (21-33) mmol/L Anion Gap (10-20) BUN (7-21) mg/dL Creatinine (0.7-1.2) mg/dl Est GFR ( Amer) Est GFR (Non-Af Amer) POC Glucose (mg/dL) 97 96 (65-110) mg/dL Random Glucose (70-110) mg/dL Calcium (8.4-10.5) mg/dL Phosphorus (2.5-4.5) mg/dL Magnesium (1.7-2.2) mg/dL Iron (45-180) ug/dL TIBC (265-497) ug/dL % Saturation (20-55) % Total Bilirubin (0.2-1.3) mg/dL Direct Bilirubin (0.0-0.4) mg/dL AST (14-36) U/L ALT (7-56) U/L Alkaline Phosphatase (38-126) U/L Total Protein (5.8-8.3) g/dL Albumin (3.0-4.8) g/dL Globulin gm/dL Albumin/Globulin Ratio (1.1-1.8) Laboratory Results - last 24 hr 12/31/17 12/31/17 01/01/18 17:06 23:54 05:30 WBC RBC Hgb Hct MCV MCH MCHC RDW Plt Count MPV Gran % Lymph % (Auto) Stark % (Auto) Eos % (Auto) Baso % (Auto) Gran # Lymph # (Auto) Stark # (Auto) Eos # (Auto) Baso # (Auto) Retic Count pCO2 43 pO2 125.0 H HCO3 32.0 H ABG pH 7.48 H ABG Total CO2 33.3 H ABG O2 Saturation 100.3 H ABG O2 Content 13.2 L ABG Base Excess 7.7 H ABG Hemoglobin 9.5 L ABG Carboxyhemoglobin 1.9 H POC ABG HHb (Measured) -0.3 L ABG Methemoglobin 1.0 ABG O2 Capacity 13.2 L Hgb O2 Saturation 97.3 FiO2 30.0 Sodium Potassium Chloride Carbon Dioxide Anion Gap BUN Creatinine Est GFR ( Amer) Est GFR (Non-Af Amer) POC Glucose (mg/dL) 96 97 Random Glucose Calcium Phosphorus Magnesium Iron TIBC % Saturation Total Bilirubin Direct Bilirubin AST ALT Alkaline Phosphatase Total Protein Albumin Globulin Albumin/Globulin Ratio 01/01/18 01/01/18 01/01/18 06:15 06:15 06:17 WBC 5.9 D RBC 3.10 L Hgb 9.2 L Hct 28.0 L MCV 90.3 MCH 29.7 MCHC 32.9 RDW 14.6 H Plt Count 224 MPV 11.2 H Gran % 68.5 H Lymph % (Auto) 18.9 L Stark % (Auto) 10.6 H Eos % (Auto) 2.0 Baso % (Auto) 0.0 Gran # 4.01 Lymph # (Auto) 1.1 L Stark # (Auto) 0.6 Eos # (Auto) 0.1 Baso # (Auto) 0.00 Retic Count pCO2 pO2 HCO3 ABG pH ABG Total CO2 ABG O2 Saturation ABG O2 Content ABG Base Excess ABG Hemoglobin ABG Carboxyhemoglobin POC ABG HHb (Measured) ABG Methemoglobin ABG O2 Capacity Hgb O2 Saturation FiO2 Sodium 139 Potassium 3.3 L Chloride 101 Carbon Dioxide 33 Anion Gap 8 L BUN 5 L Creatinine 0.3 L Est GFR ( Amer) > 60 Est GFR (Non-Af Amer) > 60 POC Glucose (mg/dL) 95 Random Glucose 98 Calcium 7.6 L Phosphorus 2.4 L Magnesium 1.9 Iron TIBC % Saturation Total Bilirubin 0.6 Direct Bilirubin 0.1 AST 38 H D ALT 30 Alkaline Phosphatase 48 Total Protein 5.2 L Albumin 2.6 L Globulin 2.6 Albumin/Globulin Ratio 1.0 L 01/01/18 01/01/18 01/01/18 07:00 10:48 11:17 WBC RBC Hgb Hct MCV MCH MCHC RDW Plt Count MPV Gran % Lymph % (Auto) Stark % (Auto) Eos % (Auto) Baso % (Auto) Gran # Lymph # (Auto) Stark # (Auto) Eos # (Auto) Baso # (Auto) Retic Count 0.67 pCO2 pO2 HCO3 ABG pH ABG Total CO2 ABG O2 Saturation ABG O2 Content ABG Base Excess ABG Hemoglobin ABG Carboxyhemoglobin POC ABG HHb (Measured) ABG Methemoglobin ABG O2 Capacity Hgb O2 Saturation FiO2 Sodium Potassium Chloride Carbon Dioxide Anion Gap BUN Creatinine Est GFR ( Amer) Est GFR (Non-Af Amer) POC Glucose (mg/dL) 86 Random Glucose Calcium Phosphorus Magnesium Iron 11 L TIBC 162 L % Saturation 7 L Total Bilirubin Direct Bilirubin AST ALT Alkaline Phosphatase Total Protein Albumin Globulin Albumin/Globulin Ratio Fingerstick Blood Sugar Results: 97 Critical Care Progress Note - Nutrition Nutrition: Nutrition Category Date Time Status NPO Diet [DIET] Diets 12/23/17 Lunch Ordered Assessment/Plan - Assessment and Plan (Free Text) Assessment: 72 yo AA F in ICU care for Hypercapneic Hypoxic Respiratory Failure likely 2/2 COPD Exacerbation who now has trach after failing several extubations. Patient failed bipap trial when first brought into ED on 12/16 with initial ABG showing patient to be in severe respiratory acidosis with retention of CO2; patient was also altered as a result of Hypoxemic Hypercapneic Respiratory failure. Patient was doing better and was extubated on 12/18; On 12/23 she was ready for transfer out of ICU when she started desatting and was becoming acutely altered mentally. After patient was re-intubated, CT Head to rule out any neurogenic causes for her desaturation, was negative. Septic work up was ordered with sputum cultures, blood cultures, and urine cultures all negative. CT Chest shows bibasilar atelectasis with possible overlying pneumonia. 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 Before re-intubation, patient was noted to have possible steroid psychosis, and steroids were tapered off. Patient was taken for tracheostomy day before yesterday, 12/30 and has been on CPAP Ventilator. Most recent ABG today 01/01 shows CO2 of 43, O2 of 125, HCO3 of 32, and pH of 7.48 with FiO2 of 30, which is stable. Patient continues to become hypokalemic. Chest XR continues to show improvement. Other chronic medical problems: HTN Plan: Neuro: - Maintain normothermia - Possible Steroid Psychosis - Resolved Cardio: - Possible NSTEMI: No other intervention per Dr. Parry - Lovenox for DVT ppx; Daily ASA Pulm: - Hypoxic Hypercapneic Respiratory Failure Likely 2/2 PNA VS COPD VS Mixed picture - Vanc/Cefepime/Doxy - Completed - Solumedrol, Xopenex, Atrovent, Budesonide - ENT consult for tracheostomy: Performed Friday, 12/30 - Pulm consult: Dr. Smart GI: - Protonix for GI ppx - Miralax Dave; Zofran PRN - GI Consult: Dr. Luna, need recommendations regarding PEG tube. Renal: - Monitor and replete electrolytes as needed Heme: - Lovenox for DVT ppx Endo: - Maintain euglycemia ID: - Was covered for PNA with Cefepime and Vanc; No need to re-order blood cultures at this time. Dispo: Patient is awaiting PEG tube, after which she can be discharged to LTAC per primary team. Patient will most likely require ICU until that point, as she has failed weaning trials, but we will monitor her closely for any changes in her condition. <Sheldon Modi - Last Filed: 01/01/18 12:12> CCU Objective - Vital Signs / Intake & Output Intake and Output (Last 8hrs): Intake & Output 12/31/17 01/01/18 01/01/18 22:59 06:59 14:59 Intake Total 1300 1200 Output Total 1100 700 Balance 200 500 Weight 129 lb Intake: IV 1300 1200 Left Internal Jugular 1300 1200 Oral 0 0 Output: Urine 1100 700 Urethral ([place]) 1100 700 Emesis 0 Other: # Bowel Movements 0 0 - Medications Active Medications: Active Medications Generic Name Dose Route Start Last Admin Trade Name Freq PRN Reason Stop Dose Admin Acetaminophen 650 mg 12/16/17 19:09 12/17/17 08:30 Tylenol 650 Mg Supp RC 650 mg Q6H PRN Administration TEMP>=99.5F Aspirin 325 mg 12/20/17 10:00 01/01/18 10:15 Aspirin PO Not Given DAILY [facility] Atorvastatin Calcium 10 mg 12/19/17 17:00 12/31/17 17:28 Lipitor PO Not Given DIN DAVE Budesonide 1 mg 12/22/17 20:00 01/01/18 07:47 Pulmicort Respules IH 1 mg [id number] DAVE Administration Enoxaparin Sodium 40 mg 12/17/17 10:00 12/31/17 09:35 Lovenox SC 40 mg DAILY DAVE Administration Protocol Ergocalciferol 1 cap 12/20/17 10:00 12/27/17 10:03 Drisdol 50,000 Intl Units Cap PO Not Given Q7D DAVE Dextrose/Sodium Chloride 1,000 mls @ 100 mls/hr 12/30/17 16:00 01/01/18 10:21 Dextrose 5%/0.9% Ns 1000 Ml IV 100 mls/hr .Q10H DAVE Administration Potassium Phosphate 15 mmole/ 255 mls @ 42.5 mls/hr 01/01/18 07:44 01/01/18 08:15 Sodium Chloride IVPB 01/01/18 13:43 42.5 mls/hr ONCE ONE Administration Ipratropium [place] 0.5 mg 12/22/17 14:00 01/01/18 07:47 Atrovent IH 0.5 mg [id number] DAVE Administration Ipratropium [place] 0.5 mg 12/22/17 12:21 Atrovent IH Q2H PRN Shortness of Breath Levalbuterol HCl 0.63 mg 12/16/17 15:37 Xopenex IH Q2 PRN Shortness of Breath Levalbuterol HCl 0.63 mg 12/22/17 08:00 01/01/18 07:48 Xopenex IH 0.63 mg 0200,0800,1400,2000 DAVE Administration Morphine Sulfate 1 mg 12/31/17 10:05 Morphine IVP Q6H PRN Pain, severe (8-10) Ondansetron HCl 4 mg 12/16/17 19:09 Zofran Inj IVP Q4H PRN Nausea/Vomiting Pantoprazole Sodium 40 mg 12/23/17 22:00 01/01/18 10:20 Protonix Inj IVP 40 mg Q12 DAVE Administration Polyethylene Glycol 17 gm 12/19/17 10:30 01/01/18 10:15 Miralax PO Not Given DAILY DAVE - Patient Studies Lab Studies: Lab Studies 01/01/18 01/01/18 01/01/18 Range/Units 11:17 10:48 10:48 WBC (4.5-11.0) 10^3/ul RBC (3.5-6.1) 10^6/uL Hgb (12.0-16.0) g/dL Hct (36.0-48.0) % MCV (80.0-105.0) fl MCH (25.0-35.0) pg MCHC (31.0-37.0) g/dl RDW (11.5-14.5) % Plt Count (120.0-450.0) 10^3/uL MPV (7.0-11.0) fl Gran % (50.0-68.0) % Lymph % (Auto) (22.0-35.0) % Stark % (Auto) (1.0-6.0) % Eos % (Auto) (1.5-5.0) % Baso % (Auto) (0.0-3.0) % Gran # (1.4-6.5) Lymph # (Auto) (1.2-3.4) Stark # (Auto) (0.1-0.6) Eos # (Auto) (0.0-0.7) Baso # (Auto) (0.0-2.0) K/mm3 Retic Count (0.5-1.5) % pCO2 (35-45) mm/Hg pO2 (80-100) mm/Hg HCO3 (21-28) mmol/L ABG pH (7.35-7.45) ABG Total CO2 (22-28) mmol.L ABG O2 Saturation (95-98) % ABG O2 Content (15-23) ML/dl ABG Base Excess (-2.0-3.0) mmol/L ABG Hemoglobin (11.7-17.4) g/dL ABG Carboxyhemoglobin (0.5-1.5) % POC ABG HHb (Measured) (0-5) % ABG Methemoglobin (0.0-3.0) % ABG O2 Capacity (16-24) mL/dl Hgb O2 Saturation (95.0-98.0) % FiO2 % Sodium (132-148) mmol/L Potassium (3.6-5.0) mmol/L Chloride (98-107) mmol/L Carbon Dioxide (21-33) mmol/L Anion Gap (10-20) BUN (7-21) mg/dL Creatinine (0.7-1.2) mg/dl Est GFR ( Amer) Est GFR (Non-Af Amer) POC Glucose (mg/dL) 86 (65-110) mg/dL Random Glucose (70-110) mg/dL Calcium (8.4-10.5) mg/dL Phosphorus (2.5-4.5) mg/dL Magnesium (1.7-2.2) mg/dL Iron 11 L (45-180) ug/dL TIBC 162 L (265-497) ug/dL % Saturation 7 L (20-55) % Total Bilirubin (0.2-1.3) mg/dL Direct Bilirubin (0.0-0.4) mg/dL AST (14-36) U/L ALT (7-56) U/L Alkaline Phosphatase (38-126) U/L Total Protein (5.8-8.3) g/dL Albumin (3.0-4.8) g/dL Globulin gm/dL Albumin/Globulin Ratio (1.1-1.8) Blood Type O POSITIVE Antibody Screen Negative Crossmatch See Detail BBK History Checked Patient has bt 01/01/18 01/01/18 01/01/18 Range/Units 07:00 06:17 06:15 WBC 5.9 D (4.5-11.0) 10^3/ul RBC 3.10 L (3.5-6.1) 10^6/uL Hgb 9.2 L (12.0-16.0) g/dL Hct 28.0 L (36.0-48.0) % MCV 90.3 (80.0-105.0) fl MCH 29.7 (25.0-35.0) pg MCHC 32.9 (31.0-37.0) g/dl RDW 14.6 H (11.5-14.5) % Plt Count 224 (120.0-450.0) 10^3/uL MPV 11.2 H (7.0-11.0) fl Gran % 68.5 H (50.0-68.0) % Lymph % (Auto) 18.9 L (22.0-35.0) % Stark % (Auto) 10.6 H (1.0-6.0) % Eos % (Auto) 2.0 (1.5-5.0) % Baso % (Auto) 0.0 (0.0-3.0) % Gran # 4.01 (1.4-6.5) Lymph # (Auto) 1.1 L (1.2-3.4) Stark # (Auto) 0.6 (0.1-0.6) Eos # (Auto) 0.1 (0.0-0.7) Baso # (Auto) 0.00 (0.0-2.0) K/mm3 Retic Count 0.67 (0.5-1.5) % pCO2 (35-45) mm/Hg pO2 (80-100) mm/Hg HCO3 (21-28) mmol/L ABG pH (7.35-7.45) ABG Total CO2 (22-28) mmol.L ABG O2 Saturation (95-98) % ABG O2 Content (15-23) ML/dl ABG Base Excess (-2.0-3.0) mmol/L ABG Hemoglobin (11.7-17.4) g/dL ABG Carboxyhemoglobin (0.5-1.5) % POC ABG HHb (Measured) (0-5) % ABG Methemoglobin (0.0-3.0) % ABG O2 Capacity (16-24) mL/dl Hgb O2 Saturation (95.0-98.0) % FiO2 % Sodium (132-148) mmol/L Potassium (3.6-5.0) mmol/L Chloride (98-107) mmol/L Carbon Dioxide (21-33) mmol/L Anion Gap (10-20) BUN (7-21) mg/dL Creatinine (0.7-1.2) mg/dl Est GFR ( Amer) Est GFR (Non-Af Amer) POC Glucose (mg/dL) 95 (65-110) mg/dL Random Glucose (70-110) mg/dL Calcium (8.4-10.5) mg/dL Phosphorus (2.5-4.5) mg/dL Magnesium (1.7-2.2) mg/dL Iron (45-180) ug/dL TIBC (265-497) ug/dL % Saturation (20-55) % Total Bilirubin (0.2-1.3) mg/dL Direct Bilirubin (0.0-0.4) mg/dL AST (14-36) U/L ALT (7-56) U/L Alkaline Phosphatase (38-126) U/L Total Protein (5.8-8.3) g/dL Albumin (3.0-4.8) g/dL Globulin gm/dL Albumin/Globulin Ratio (1.1-1.8) Blood Type Antibody Screen Crossmatch BBK History Checked 01/01/18 01/01/18 12/31/17 Range/Units 06:15 05:30 23:54 WBC (4.5-11.0) 10^3/ul RBC (3.5-6.1) 10^6/uL Hgb (12.0-16.0) g/dL Hct (36.0-48.0) % MCV (80.0-105.0) fl MCH (25.0-35.0) pg MCHC (31.0-37.0) g/dl RDW (11.5-14.5) % Plt Count (120.0-450.0) 10^3/uL MPV (7.0-11.0) fl Gran % (50.0-68.0) % Lymph % (Auto) (22.0-35.0) % Stark % (Auto) (1.0-6.0) % Eos % (Auto) (1.5-5.0) % Baso % (Auto) (0.0-3.0) % Gran # (1.4-6.5) Lymph # (Auto) (1.2-3.4) Stark # (Auto) (0.1-0.6) Eos # (Auto) (0.0-0.7) Baso # (Auto) (0.0-2.0) K/mm3 Retic Count (0.5-1.5) % pCO2 43 (35-45) mm/Hg pO2 125.0 H (80-100) mm/Hg HCO3 32.0 H (21-28) mmol/L ABG pH 7.48 H (7.35-7.45) ABG Total CO2 33.3 H (22-28) mmol.L ABG O2 Saturation 100.3 H (95-98) % ABG O2 Content 13.2 L (15-23) ML/dl ABG Base Excess 7.7 H (-2.0-3.0) mmol/L ABG Hemoglobin 9.5 L (11.7-17.4) g/dL ABG Carboxyhemoglobin 1.9 H (0.5-1.5) % POC ABG HHb (Measured) -0.3 L (0-5) % ABG Methemoglobin 1.0 (0.0-3.0) % ABG O2 Capacity 13.2 L (16-24) mL/dl Hgb O2 Saturation 97.3 (95.0-98.0) % FiO2 30.0 % Sodium 139 (132-148) mmol/L Potassium 3.3 L (3.6-5.0) mmol/L Chloride 101 (98-107) mmol/L Carbon Dioxide 33 (21-33) mmol/L Anion Gap 8 L (10-20) BUN 5 L (7-21) mg/dL Creatinine 0.3 L (0.7-1.2) mg/dl Est GFR ( Amer) > 60 Est GFR (Non-Af Amer) > 60 POC Glucose (mg/dL) 97 (65-110) mg/dL Random Glucose 98 (70-110) mg/dL Calcium 7.6 L (8.4-10.5) mg/dL Phosphorus 2.4 L (2.5-4.5) mg/dL Magnesium 1.9 (1.7-2.2) mg/dL Iron (45-180) ug/dL TIBC (265-497) ug/dL % Saturation (20-55) % Total Bilirubin 0.6 (0.2-1.3) mg/dL Direct Bilirubin 0.1 (0.0-0.4) mg/dL AST 38 H D (14-36) U/L ALT 30 (7-56) U/L Alkaline Phosphatase 48 (38-126) U/L Total Protein 5.2 L (5.8-8.3) g/dL Albumin 2.6 L (3.0-4.8) g/dL Globulin 2.6 gm/dL Albumin/Globulin Ratio 1.0 L (1.1-1.8) Blood Type Antibody Screen Crossmatch BBK History Checked 12/31/17 Range/Units 17:06 WBC (4.5-11.0) 10^3/ul RBC (3.5-6.1) 10^6/uL Hgb (12.0-16.0) g/dL Hct (36.0-48.0) % MCV (80.0-105.0) fl MCH (25.0-35.0) pg MCHC (31.0-37.0) g/dl RDW (11.5-14.5) % Plt Count (120.0-450.0) 10^3/uL MPV (7.0-11.0) fl Gran % (50.0-68.0) % Lymph % (Auto) (22.0-35.0) % Stark % (Auto) (1.0-6.0) % Eos % (Auto) (1.5-5.0) % Baso % (Auto) (0.0-3.0) % Gran # (1.4-6.5) Lymph # (Auto) (1.2-3.4) Stark # (Auto) (0.1-0.6) Eos # (Auto) (0.0-0.7) Baso # (Auto) (0.0-2.0) K/mm3 Retic Count (0.5-1.5) % pCO2 (35-45) mm/Hg pO2 (80-100) mm/Hg HCO3 (21-28) mmol/L ABG pH (7.35-7.45) ABG Total CO2 (22-28) mmol.L ABG O2 Saturation (95-98) % ABG O2 Content (15-23) ML/dl ABG Base Excess (-2.0-3.0) mmol/L ABG Hemoglobin (11.7-17.4) g/dL ABG Carboxyhemoglobin (0.5-1.5) % POC ABG HHb (Measured) (0-5) % ABG Methemoglobin (0.0-3.0) % ABG O2 Capacity (16-24) mL/dl Hgb O2 Saturation (95.0-98.0) % FiO2 % Sodium (132-148) mmol/L Potassium (3.6-5.0) mmol/L Chloride (98-107) mmol/L Carbon Dioxide (21-33) mmol/L Anion Gap (10-20) BUN (7-21) mg/dL Creatinine (0.7-1.2) mg/dl Est GFR ( Amer) Est GFR (Non-Af Amer) POC Glucose (mg/dL) 96 (65-110) mg/dL Random Glucose (70-110) mg/dL Calcium (8.4-10.5) mg/dL Phosphorus (2.5-4.5) mg/dL Magnesium (1.7-2.2) mg/dL Iron (45-180) ug/dL TIBC (265-497) ug/dL % Saturation (20-55) % Total Bilirubin (0.2-1.3) mg/dL Direct Bilirubin (0.0-0.4) mg/dL AST (14-36) U/L ALT (7-56) U/L Alkaline Phosphatase (38-126) U/L Total Protein (5.8-8.3) g/dL Albumin (3.0-4.8) g/dL Globulin gm/dL Albumin/Globulin Ratio (1.1-1.8) Blood Type Antibody Screen Crossmatch BBK History Checked Laboratory Results - last 24 hr 12/31/17 12/31/17 01/01/18 17:06 23:54 05:30 WBC RBC Hgb Hct MCV MCH MCHC RDW Plt Count MPV Gran % Lymph % (Auto) Stark % (Auto) Eos % (Auto) Baso % (Auto) Gran # Lymph # (Auto) Stark # (Auto) Eos # (Auto) Baso # (Auto) Retic Count pCO2 43 pO2 125.0 H HCO3 32.0 H ABG pH 7.48 H ABG Total CO2 33.3 H ABG O2 Saturation 100.3 H ABG O2 Content 13.2 L ABG Base Excess 7.7 H ABG Hemoglobin 9.5 L ABG Carboxyhemoglobin 1.9 H POC ABG HHb (Measured) -0.3 L ABG Methemoglobin 1.0 ABG O2 Capacity 13.2 L Hgb O2 Saturation 97.3 FiO2 30.0 Sodium Potassium Chloride Carbon Dioxide Anion Gap BUN Creatinine Est GFR ( Amer) Est GFR (Non-Af Amer) POC Glucose (mg/dL) 96 97 Random Glucose Calcium Phosphorus Magnesium Iron TIBC % Saturation Total Bilirubin Direct Bilirubin AST ALT Alkaline Phosphatase Total Protein Albumin Globulin Albumin/Globulin Ratio Blood Type Antibody Screen Crossmatch BBK History Checked 01/01/18 01/01/18 01/01/18 06:15 06:15 06:17 WBC 5.9 D RBC 3.10 L Hgb 9.2 L Hct 28.0 L MCV 90.3 MCH 29.7 MCHC 32.9 RDW 14.6 H Plt Count 224 MPV 11.2 H Gran % 68.5 H Lymph % (Auto) 18.9 L Stark % (Auto) 10.6 H Eos % (Auto) 2.0 Baso % (Auto) 0.0 Gran # 4.01 Lymph # (Auto) 1.1 L Stark # (Auto) 0.6 Eos # (Auto) 0.1 Baso # (Auto) 0.00 Retic Count pCO2 pO2 HCO3 ABG pH ABG Total CO2 ABG O2 Saturation ABG O2 Content ABG Base Excess ABG Hemoglobin ABG Carboxyhemoglobin POC ABG HHb (Measured) ABG Methemoglobin ABG O2 Capacity Hgb O2 Saturation FiO2 Sodium 139 Potassium 3.3 L Chloride 101 Carbon Dioxide 33 Anion Gap 8 L BUN 5 L Creatinine 0.3 L Est GFR ( Amer) > 60 Est GFR (Non-Af Amer) > 60 POC Glucose (mg/dL) 95 Random Glucose 98 Calcium 7.6 L Phosphorus 2.4 L Magnesium 1.9 Iron TIBC % Saturation Total Bilirubin 0.6 Direct Bilirubin 0.1 AST 38 H D ALT 30 Alkaline Phosphatase 48 Total Protein 5.2 L Albumin 2.6 L Globulin 2.6 Albumin/Globulin Ratio 1.0 L Blood Type Antibody Screen Crossmatch BBK History Checked 01/01/18 01/01/18 01/01/18 07:00 10:48 10:48 WBC RBC Hgb Hct MCV MCH MCHC RDW Plt Count MPV Gran % Lymph % (Auto) Stark % (Auto) Eos % (Auto) Baso % (Auto) Gran # Lymph # (Auto) Stark # (Auto) Eos # (Auto) Baso # (Auto) Retic Count 0.67 pCO2 pO2 HCO3 ABG pH ABG Total CO2 ABG O2 Saturation ABG O2 Content ABG Base Excess ABG Hemoglobin ABG Carboxyhemoglobin POC ABG HHb (Measured) ABG Methemoglobin ABG O2 Capacity Hgb O2 Saturation FiO2 Sodium Potassium Chloride Carbon Dioxide Anion Gap BUN Creatinine Est GFR ( Amer) Est GFR (Non-Af Amer) POC Glucose (mg/dL) Random Glucose Calcium Phosphorus Magnesium Iron 11 L TIBC 162 L % Saturation 7 L Total Bilirubin Direct Bilirubin AST ALT Alkaline Phosphatase Total Protein Albumin Globulin Albumin/Globulin Ratio Blood Type O POSITIVE Antibody Screen Negative Crossmatch See Detail BBK History Checked Patient has bt 01/01/18 11:17 WBC RBC Hgb Hct MCV MCH MCHC RDW Plt Count MPV Gran % Lymph % (Auto) Stark % (Auto) Eos % (Auto) Baso % (Auto) Gran # Lymph # (Auto) Stark # (Auto) Eos # (Auto) Baso # (Auto) Retic Count pCO2 pO2 HCO3 ABG pH ABG Total CO2 ABG O2 Saturation ABG O2 Content ABG Base Excess ABG Hemoglobin ABG Carboxyhemoglobin POC ABG HHb (Measured) ABG Methemoglobin ABG O2 Capacity Hgb O2 Saturation FiO2 Sodium Potassium Chloride Carbon Dioxide Anion Gap BUN Creatinine Est GFR ( Amer) Est GFR (Non-Af Amer) POC Glucose (mg/dL) 86 Random Glucose Calcium Phosphorus Magnesium Iron TIBC % Saturation Total Bilirubin Direct Bilirubin AST ALT Alkaline Phosphatase Total Protein Albumin Globulin Albumin/Globulin Ratio Blood Type Antibody Screen Crossmatch BBK History Checked Critical Care Progress Note - Nutrition Nutrition: Nutrition Category Date Time Status NPO Diet [DIET] Diets 12/23/17 Lunch Ordered Assessment/Plan - Assessment and Plan (Free Text) Assessment: Patient seen and examined on rounds with resident, agree with note with following additions/exceptions: Patient is 72yo female with PMhx COPD (with prior intubations for exacerbations) , asthma, HTN, and pulmonary HTN, a/w hypercapnic resp failure. Currently afebrile, BP stable, comfortable in NAD, s/p tracheostomy PEG placed today COPD exacerbation Resp failure s/p trach Pulm HTN Recommend: - pressure support trial goal sat 90% - pulmonary follow up - DC Abx - Duonebs PRN - BP control - monitor HH closely - GI ppx - DVT ppx - social work eval - monitor in MICU
--- NOTE | 2018-01-01 12:05 | PN ---
DATE: 01/01/2018(625am-715am) PULMONARY PROGRESS NOTE SUBJECTIVE: The patient remains on the ventilator. She is awake and alert. She is currently on PRVC. PHYSICAL EXAMINATION: VITAL SIGNS: Temperature is 99.3, pulse 79, respirations 19/15, blood pressure 100/43. HEENT: Normocephalic, atraumatic. No JVD. Positive tracheostomy. CARDIOVASCULAR: Systolic ejection murmur at the lower left sternal border. No S3 gallop. LUNGS: Decreased breath sounds at the bases. Minimal/less rhonchi. No wheezing. EXTREMITIES: No clubbing, cyanosis or edema. Calves are nontender to palpation. GASTROINTESTINAL: Abdomen is soft, nontender and nondistended. Bowel sounds are positive. SKIN: No acute rash. NEUROLOGIC: Exam limited at the present time. PERTINENT LABORATORY DATA:. Chest x-ray was done this morning and reviewed. There is much less "haziness" noted at the right base. Arterial blood gas was done on PRVC 15, tidal volume 350, FIO2 of 30%. Results are: pH 7.48, pCO2 of 43, pO2 of 125. IMPRESSION 1. Recurrent respiratory failure. 2. Left lower lobe pneumonia. 3. Sepsis syndrome. 4. Mild anemia. 5. Positive troponin. PLAN: The patient remains intubated. She is awake and alert. She is currently on PRVC. I did discuss the case with the night nurse at length. The night nurse stated that the patient had a good night. However, the night nurse informed me that the patient did fail her swallowing evaluation yesterday. She is for possible PEG tube placement in the near future. I did review the chest x-ray as above. The chest x-ray today is improved - with significant decrease in the right basal "haziness". I have also reviewed the arterial blood gas. The arterial blood gas is also much improved - with a significant decrease in the alveolar-arterial gradient. I will discuss further weaning trials with the ICU team this morning. On physical exam, her bronchospasm is certainly less. I will continue the current nebulizer treatments and inhaled steroids for now. Inputs by Infectious Disease and Cardiology are also noted. The clinical status of the patient is significantly improved overall. However, again, she does remain very guarded. I did discuss the above with the ICU resident this morning. I will also discuss the above with the entire ICU team in the next few moments. I will discuss the above with the attending physician. Edin Aguila MD [facility]
--- NOTE | 2018-01-01 12:07 | CP.PCM.PN ---
Subjective - Date & Time of Evaluation Date of Evaluation: 01/01/18 Time of Evaluation: 09:15 - Subjective Subjective: Continues to be on the ventilator but not in distress, afebrile. Objective - Vital Signs/Intake and Output Vital Signs (last 24 hours): Temp Pulse Resp BP Pulse Ox 99.3 F 79 15 96/57 L 100 01/01/18 00:00 01/01/18 02:59 01/01/18 02:59 01/01/18 03:00 01/01/18 02:59 Intake and Output: 12/31/17 01/01/18 18:59 06:59 Intake Total 1300 Output Total 1100 Balance 200 - Medications Medications: Current Medications Acetaminophen (Tylenol 650 Mg Supp) 650 mg RC Q6H PRN PRN Reason: TEMP>=99.5F Last Admin: 12/17/17 08:30 Dose: 650 mg Aspirin (Aspirin) 325 mg PO DAILY [facility] Last Admin: 12/31/17 09:24 Dose: Not Given Atorvastatin Calcium (Lipitor) 10 mg PO DIN [facility] Last Admin: 12/31/17 17:28 Dose: Not Given Budesonide (Pulmicort Respules) 1 mg IH [id number] [facility] Last Admin: 12/31/17 20:28 Dose: 1 mg Enoxaparin Sodium (Lovenox) 40 mg SC DAILY [facility] PRN Reason: Protocol Last Admin: 12/31/17 09:35 Dose: 40 mg Ergocalciferol (Drisdol 50,000 Intl Units Cap) 1 cap PO Q7D [facility] Last Admin: 12/27/17 10:03 Dose: Not Given Dextrose/Sodium Chloride (Dextrose 5%/0.9% Ns 1000 Ml) 1,000 mls @ 100 mls/hr IV .Q10H [facility] Last Admin: 12/31/17 20:40 Dose: 100 mls/hr Ipratropium Marshall (Atrovent) 0.5 mg IH [id number] [facility] Last Admin: 01/01/18 02:13 Dose: 0.5 mg Ipratropium Marshall (Atrovent) 0.5 mg IH Q2H PRN PRN Reason: Shortness of Breath Levalbuterol HCl (Xopenex) 0.63 mg IH Q2 PRN PRN Reason: Shortness of Breath Levalbuterol HCl (Xopenex) 0.63 mg IH 0200,0800,1400,2000 [facility] Last Admin: 01/01/18 02:14 Dose: 0.63 mg Morphine Sulfate (Morphine) 1 mg IVP Q6H PRN PRN Reason: Pain, severe (8-10) Ondansetron HCl (Zofran Inj) 4 mg IVP Q4H PRN PRN Reason: Nausea/Vomiting Pantoprazole Sodium (Protonix Inj) 40 mg IVP Q12 [facility] Last Admin: 12/31/17 21:11 Dose: 40 mg Polyethylene Glycol (Miralax) 17 gm PO DAILY [facility] Last Admin: 12/31/17 09:24 Dose: Not Given - Labs Labs: 12/31/17 06:30 12/31/17 06:40 PT 13.3 SECONDS (9.4-12.5) H 12/30/17 10:45 INR 1.15 (0.93-1.08) H 12/30/17 10:45 APTT 28.1 Seconds (25.1-36.5) 12/30/17 10:45 - Constitutional Appears: Other (on the vent, not in distress) - Head Exam Head Exam: NORMAL INSPECTION - ENT Exam Additional comments: tracheostomy in place - Respiratory Exam Respiratory Exam: Decreased Breath Sounds - Cardiovascular Exam Cardiovascular Exam: +S1, +S2 - GI/Abdominal Exam GI & Abdominal Exam: Soft. absent: Tenderness Assessment and Plan - Assessment and Plan (Free Text) Plan: Assessment S/P severe sepsis with ventilator-dependent respiratory failure due to left sided hospital-acquired pneumonia in this patient with acute COPD exacerbation, S/P tracheostomy COPD diastolic chronic CHF S/P hysterectomy obesity with BMI 31 Plan completed 7 days of Vancomycin, Cefepime and Doxycycline - will continue to monitor clinically off antibiotics since she is at risk for healthcare- associated infections
[2018-01-01 15:01] VITALS: RESP 24
--- NOTE | 2018-01-01 15:19 | PN ---
DATE: 01/01/2018 SUBJECTIVE: The patient is seen in CCU, bed 3. The patient is awake, responsive. The patient just underwent a procedure and placement of gastrostomy. The patient is alert, awake, responsive. The patient is lying in the bed on tracheostomy. The patient's tracheostomy is still connected to the ventilator. Overnight nurse's notes were reviewed. PHYSICAL EXAMINATION VITAL SIGNS: T-max is 100 down to 99.3. Telemetry shows sinus rhythm, heart rate 79-82. Blood pressure 100/43, 104/61, 93/65, 91/65, 100/53. Respiration 19, 15 per minute. O2 sat 96%-100% on ventilator support. HEAD: Normocephalic, atraumatic. EENT: Shows pale conjunctivae. Anicteric sclerae. No oropharyngeal lesion. No neck rigidity. Positive tracheostomy noted. CHEST: Kyphosis. LUNGS: Shows positive rhonchi upper lung bauer anteriorly. CARDIOVASCULAR: Shows S1, S2, regular rhythm. Positive systolic murmur at left sternal border, left second intercostal space, right second intercostal space. ABDOMEN: Soft. Positive gastrostomy noted. GENITALIA: Female. RECTAL: Deferred. EXTREMITY: Shows positive SCDs. MUSCULOSKELETAL: Shows a body mass index of 24.4. NEUROLOGIC: The patient is alert, awake, responsive. Eyes open. DIAGNOSTICS: 01/01; WBC 5.9, hemoglobin and hematocrit is 9.2 and 28, her average hemoglobin and hematocrit is around 11 g and hematocrit in the mid 30s. ABG on 30% FiO2; pH of 7.48, pCO2 of 43, pO2 of 125, bicarb of 32, saturation of 100% on 30% FiO2. Sodium 139, potassium 3.3, chloride 101, CO2 of 33, anion gap 8, BUN 5, creatinine 0.3, GFR greater than 60, glucose 95 and 98, calcium 7.6, phosphorus 2.4, AST 38, total protein 5.2, albumin 2.6. Blood cultures repeat negative. IMPRESSION: 1. Status post gastrostomy tube placement. 2. Status post esophagogastroduodenoscopy. 3. Gastric body nonbleeding erosions. 4. Non-bleeding erosive gastropathy. 5. Status post externally removable gastrostomy tube placement. 6. Status post tracheostomy. 7. Low-grade fever. 8. Hypotension, etiology undetermined. 9. Anemia with decreasing hemoglobin and hematocrit. 10. Leukopenia. 11. Status post leukocytosis. 12. Granulocytosis. 13. Hypoxic hypercarbic ventilator-dependent respiratory failure with respiratory acidosis and hypercarbia and CO2 narcosis. 14. Hypokalemia. 15. Hypocalcemia. 16. Hypophosphatemia. 17. Moderate protein malnutrition and hypoalbuminemia. 18. Questionable acute non-ST elevation myocardial infarction status post cardiac catheterization. 19. Hypovitaminosis D. 20. Severe sepsis with bilateral multilobar healthcare-associated versus ventilator-associated pneumonia. 21. Left pleural effusion. 22. Status post cardiac catheterization with left ventricular ejection fraction of 60%. 23. 60%-70% stenosis of the proximal diagonal two-vessel. 1. Status post tracheostomy. 2. Severe oropharyngeal dysphagia with high risk for aspiration due to tracheostomy and multiple weak swallows, poor management of own saliva requiring oral suction, and weak cough. 3. Hypotension, etiology undetermined. 4. Normocytic anemia. 5. Granulocytosis. 6. Acute hypoxic hypercarbic respiratory failure with respiratory acidosis. 7. Ventilator-dependent respiratory failure. 8. Hypokalemia. 9. Hypocalcemia. 10. Hypophosphatemia. 11. Yftg-ae-yuqraedb protein malnutrition and hypoalbuminemia. 12. Deconditioning. 13. Feeding dysfunction secondary to severe oropharyngeal dysphagia. 14. Persistent left lower lobe density. 15. Status post left internal jugular triple-lumen catheter placement. 16. Severe sepsis with ventilator-dependent respiratory failure with multilobar bilateral hospital-acquired pneumonia versus ventilator-associated pneumonia. 17. Acute exacerbation of chronic obstructive pulmonary disease. 1. Acute, recurrent, relapsing, htkfz-rb-powsgxl hypoxic, hypercarbic, ventilator-dependent respiratory failure with respiratory acidosis, hypercarbia. 2. Severe sepsis secondary to ventilator-dependent respiratory failure and bilateral multilobar possible healthcare-associated versus ventilator-associated pneumonia. 3. Hypotension, etiology undetermined. 4. Tachypnea. 5. Normocytic anemia. 6. Granulocytosis. 7. Hypokalemia. 8. Metabolic alkalosis. 9. Hypocalcemia. 10. Hypophosphatemia. 11. Dbqh-eq-gplxcafn protein malnutrition and hypoalbuminemia. 12. Bilateral pleural effusion. 13. Multilobar bilateral healthcare-associated pneumonia. 14. Atelectasis. 1. Acute recurrent relapsing ventilator-dependent respiratory failure with respiratory acidosis and hypercarbia. 2. Transient episodic hypotension. 3. Ventilator-dependent respiratory failure. 4. Acute exacerbation of chronic obstructive pulmonary disease. 5. Acute recurrent relapsing ddepo-ye-ttpaexg hypercarbic hypoxic ventilator-dependent respiratory failure with hypoxemia, hypercarbia, carbon dioxide narcosis. 6. Normocytic anemia. 7. Leukopenia. 8. Granulocytosis. 9. Recurrent hypercarbia. 10. Hypokalemia, hypocalcemia, hypophosphatemia. 11. Questionable ysr-GD-fengbjjtp myocardial infarction with elevated troponin. 12. Mild protein malnutrition and mild hypoalbuminemia. 13. Bilateral multilobar bibasilar healthcare-associated versus ventilator-associated pneumonia with pulmonary vascular congestion. 14. Status post cardiac catheterization. 15. Left ventricular ejection fraction of 60% on cardiac catheterization. 16. 60-70% stenosis of the proximal diagonal 2 branch. 17. Moderate concentric left ventricular hypertrophy with grade 1 abnormal relaxation pattern. 18. Moderately dilated left atrium. 19. Moderately sclerotic aortic valve. 20. Moderately thickened mitral valve with moderate mitral regurgitation. 21. Severe sepsis with ventilator-dependent respiratory failure secondary to multilobar bilateral healthcare-associated versus ventilator-associated pneumonia. 22. Nonsustained ventricular tachycardia. 23. Refractory ventilator-dependent respiratory failure. 24. Hypovitaminosis D. 25. Dyslipidemia. 1. Severe sepsis with ventilator-dependent respiratory failure and bilateral multilobar healthcare-associated versus ventilator-associated bilateral pneumonia. 2. Low-grade fever. 3. Transient hypotension. 4. Normocytic anemia. 5. Hypokalemia. 6. Granulocytosis. 7. Hypocalcemia. 8. Mild to moderate protein malnutrition and mild to moderate hypoalbuminemia. 9. Bilateral multilobar healthcare-associated versus ventilator-associated pneumonia. 1. Acute relapsing recurrent hypercarbic hypoxic respiratory failure with respiratory acidosis and CO2 narcosis with multiple reintubation. 2. Hypotension. 3. Probably asymptomatic nonsustained ventricular tachycardia. 4. Ventilator-dependent respiratory failure. 5. Multilobar bilateral healthcare-associated versus ventilator-associated aspiration multilobar bilateral pneumonia and infiltrate and pleural effusion. 6. A 0.3 cm right upper lobe nodule. 7. History of hypertension. 8. Status post uncontrolled hypertension. 9. Hypothyroidism. 10. History of dyslipidemia. 11. History of poor compliance. 12. Questionable fyz-JW-xzkwjjxdi myocardial function with elevated troponin. 13. Status post cardiac catheterization. 14. Nonobstructive coronary artery disease. 1. Acute recurrent ventilator dependent respiratory failure with respiratory acidosis, hypercapnic hypercarbic respiratory failure. 2. Multilobar bilateral pneumonia, healthcare-associated pneumonia versus ventilator-associated pneumonia. 3. Transient hypotension. 4. Ventilator-dependent respiratory failure. 5. Leukopenia and leukocytosis. 6. Granulocytosis. 7. Normocytic anemia. 8. Transaminitis. 9. Hypertensive cardiovascular disease with left ventricular hypertrophy. 10. Pleural effusion. 11. Pulmonary vascular congestion and congestive heart failure. 1. Recurrent relapsing acute ventilator-dependent hypoxic hypercarbic respiratory failure with severe respiratory acidosis. 2. Questionable non-ST elevation myocardial infarction with elevated troponin. 3. Status post cardiac catheterization. 4. Left ventricle ejection fraction of 60%. 5. 60 to 70% stenosis of the proximal portion of the second diagonal vessel. 6. Bibasilar bilateral multilobar possible aspiration versus ventilator-dependent pneumonia and pleural effusion. 7. Cardiomegaly. 8. Mild pulmonary vascular congestion. 9. Acute exacerbation of chronic obstructive pulmonary disease with reintubation secondary to recurrent relapsing acute hypoxic, hypercapnic respiratory failure with CO2 narcosis and hypercapnia. 10. Possible non-ST elevation myocardial infarction. 11. Severe sepsis with ventilator-dependent respiratory failure and bibasilar bilateral multilobar healthcare-associated versus ventilator-associated pneumonia with acute exacerbation of chronic obstructive pulmonary disease. 12. Possible diastolic congestive heart failure. 13. Low-grade fever. 14. Tachycardia. 15. Tachypnea. 16. Leukocytosis with leukopenia and normocytic anemia. 17. Granulocytosis. 18. Hypokalemia. 19. Hypomagnesemia. 20. Hypocalcemia. 21. Mild oropharyngeal dysphagia with aop-kt-xuajwabr risk for aspiration due to minimal fatigue, minimal oral residue, missing teeth, and multiple swallows needed per single bolus. 22. Hypothyroidism. 23. History of hypertension. 24. Hypovitaminosis D. 25. Hyperlipidemia. 26. Inotropic, pressor-dependent hypotension. 27. Toxic metabolic encephalopathy secondary to hypercarbia, hypoxemia, and respiratory acidosis. 1. Recurrent acute relapsing hypoxic hypercarbic hypercapnic respiratory failure, ventilator requiring and ventilator-dependent. 2. Ventilator-dependent and ventilator-requiring hypoxic and hypercarbic respiratory failure with carbon dioxide narcosis and hypoxemia and confusion and obtundation. 3. Hypotension. 4. Transient uncontrolled hypertension and hypertensive urgency. 5. Leukocytosis with granulocytosis. 6. Normocytic anemia. 7. Severe respiratory acidosis. 8. Ventilator-dependent respiratory failure. 9. Hypokalemia. 10. Questionable acute lvv-LI-vrsdhbgbc myocardial infarction with elevated troponin. 11. Transaminitis. 12. Healthcare-associated, ventilator-dependent multilobar bilateral pneumonia with volume loss and minimal right apical scarring. 13. Right upper lobe nodule. 14. Cardiomegaly. 15. Thyromegaly with thyroid calcification. 16. Degenerative joint disease of the spine. 17. T11-T12 subacute compression deformity. 18. Left lower chest and left upper anterior abdominal wall lipoma. 19. Adrenal gland hypertrophy. 20. Feeding dysfunction. 21. Status post left internal jugular triple-lumen catheter central line placement. 22. Questionable lateral ischemic changes on the EKG with left ventricular hypertrophy. 23. Severe sepsis with ventilator-dependent respiratory failure secondary to bilateral multilobar healthcare-associated versus ventilator-dependent pneumonia. 24. Acute exacerbation of chronic obstructive pulmonary disease. 25. Hypovitaminosis D. 26. Dyslipidemia. 27. History of constipation. 1. Questionable and possible steroid versus ICU psychosis with episodic confusion. 2. Acute exacerbation of chronic obstructive pulmonary disease. 3. Status post ventilator-dependent acute hypoxic hypercarbic respiratory failure. 4. Severe respiratory acidosis. 5. Uncontrolled hypertension. 6. Transient tachycardia. 7. Tachypnea. 8. Hypoxemia. 9. Transient leukopenia. 10. Granulocytosis. 11. Severe respiratory acidosis with hypercarbia, hypercapnia and CO2 narcosis with hypoxemia. 12. Refractory acute exacerbation of mawtq-gs-zohhlxg hypoxic hypercarbic respiratory failure with refractory slow resolving respiratory acidosis. 13. Metabolic alkalosis. 14. Steroid-induced hyperglycemia. 15. Transaminitis. 16. Hypovitaminosis D. 17. Acute exacerbation of chronic obstructive pulmonary disease with hyperinflation. 18. Questionable and possible ICU versus steroid psychosis. 1. Status post ventilator-dependent respiratory failure secondary to acute hypoxic hypercarbic respiratory failure with respiratory acidosis. 2. Acute exacerbation of chronic obstructive pulmonary disease. 3. Recurrent hjjni-yg-petgdoo hypoxic hypercarbic respiratory failure with persistent hypercarbia and hypoxemia and respiratory acidosis. 4. Tachycardia. 5. Uncontrolled hypertension. 6. Tachypnea. 7. Hypoxemia. 8. Leukopenia. 9. Granulocytosis. 10. Persistent recurrent jllps-mm-wjpjbzz and acute recurrent hypoxic hypercarbic respiratory failure with respiratory acidosis. 11. Metabolic alkalosis. 12. Hyperglycemia. 13. Transaminitis. 14. Hypovitaminosis D. 15. Non-hemolyzed hyperkalemia. 16. Constipation. 17. Hypothyroidism. 18. Mild oropharyngeal dysphagia with glt-lw-oufpjaim aspiration risk secondary to minimal fatigue, minimal oral residue and missing teeth. 1. Acute exacerbation of chronic obstructive pulmonary disease. 2. Relapsing recurrent hypercarbia and respiratory acidosis. 3. Mild normocytic anemia with granulocytosis. 4. Non-hemolyzed hyperkalemia. 5. Metabolic alkalosis with rising pCO2. 6. Hyperglycemia. 7. Transaminitis. 8. Hypovitaminosis D. 9. Chronic obstructive pulmonary disease with pulmonary hyperinflation. 10. Left ventricular hypertrophy with repolarization abnormalities and possible anterior ischemic changes on the EKG. 11. Status post ventilator dependent. 12. Acute hypoxic hypercarbic respiratory failure with respiratory acidosis. 13. Acute exacerbation of chronic obstructive pulmonary disease with acute hypoxic respiratory failure with hypercapnia. 14. Acute exacerbation of chronic obstructive pulmonary disease with acute ventilator respiratory failure with hypercapnia. 15. Hypertensive cardiovascular disease with ejection fraction of 68%. 16. Concentric left ventricular hypertrophy with grade I abnormal relaxation patterns. 17. Moderately sclerotic aortic valve. 18. Moderate mitral regurgitation with moderately thickened mitral valve. 19. Trace tricuspid regurgitation. 1. Acute ventilator-dependent acute hypercarbic, hypoxemic respiratory failure and carbon dioxide narcosis. 2. Hypertension. 3. Persistent recurrent, refractor hypercarbia and mild respiratory acidosis. 4. Tachypnea. 5. Hypertension. 6. Mild normocytic anemia. 7. Granulocytosis. 8. Mild non-hemolyzed hyperkalemia. 9. Prerenal kidney injury. 10. Hyperglycemia. 11. Transaminitis. 12. Hypovitaminosis D. 13. Left ventricular ejection fraction of 68% with concentric left ventricular hypertrophy and grade 1 abnormal relaxation pattern. 14. Moderately dilated left atrium. 15. Moderately sclerotic aortic valve. 16. Moderately thickened mitral valve with moderate mitral regurgitation. 17. Hyperlipidemia. 18. Constipation. 1. Acute hypercarbic hypoxic respiratory failure with respiratory acidosis and hypercarbia and carbon dioxide narcosis. 2. Acute exacerbation of chronic obstructive pulmonary disease. 3. Acute ventilator-dependent hypercarbic hypercapnic hypoxic respiratory failure with severe respiratory acidosis. 4. Bronchospasm. 5. Severe acute exacerbation of chronic obstructive pulmonary disease. 6. Tachycardia. 7. Tachypnea. 8. Fever. 9. Febrile illness. 10. Questionable systemic inflammatory response syndrome. 11. Mild normocytic anemia. 12. Granulocytosis. 13. Recurrent hypercarbia and hypercapnia with mild respiratory acidosis and recurrent respiratory acidosis. 14. Prerenal kidney injury. 15. Transaminitis. 16. Hypovitaminosis D. 17. History of hypothyroidism. 18. Left ventricular ejection fraction of 68%. 19. Moderate concentric left ventricular hypertrophy. 20. Grade 1 abnormal relaxation pattern. 21. Moderately dilated left atrium. 22. Moderately sclerotic aortic valve. 23. Moderately thickened mitral valve with moderate mitral regurgitation. 24. Mild oropharyngeal dysphagia with low to moderate risk for aspiration due to minimal fatigue, minimal oral residue, missing teeth and multiple swallows. 25. History of hyperlipidemia. 1. Status post acute ventilator dependent hypercarbic hypoxic respiratory failure with carbon dioxide narcosis and respiratory acidosis. 2. Status post extubation. 3. Hypertension. 4. Mild normocytic anemia with granulocytosis. 5. Acute hypercarbic hypoxic ventilator-dependent respiratory failure, status post extubation with respiratory acidosis, hypercarbia and carbon dioxide narcosis. 6. Prerenal kidney injury. 7. Transaminitis. 8. Hypovitaminosis D. 9. Hypertensive cardiovascular disease with repolarization abnormalities. 10. Left ventricular ejection fraction of 68%. 11. Moderate concentric left ventricular hypertrophy with grade 1 abnormal relaxation pattern. 12. Moderately dilated left atrium. 13. Moderately sclerotic aortic valve. 14. Moderately thickened mitral valve with moderate mitral regurgitation. 15. Trace tricuspid regurgitation. 16. Carbon dioxide narcosis. 17. Acute exacerbation of severe chronic obstructive pulmonary disease. 18. History of hypothyroidism. 19. History of pulmonary hypertension. 20. High-grade fever of 101 degrees Fahrenheit. 21. Deconditioning. 22. Gait dysfunction. 23. History o hyperlipidemia. 24. History of constipation. 25. History of hypovitaminosis D. 1. Acute hypercarbic hypercapnic hypoxic ventilator-dependent respiratory failure with severe respiratory acidosis. 2. Resolving bronchospasm. 3. Fever of 100.8. 4. Mild normocytic anemia. 5. Granulocytosis. 6. Hypercarbia. 7. CO2 narcosis. 8. Transaminitis. 9. History of hypothyroidism. 10. Hypertensive cardiovascular disease with T-wave inversion I, aVL, V1 to V6. 11. Borderline hypokalemia. 1. Ventilator-dependent acute hypercarbic hypercapnic hypoxic respiratory failure with severe respiratory acidosis. 2. Bronchospasm. 3. Acute exacerbation of chronic obstructive pulmonary disease. 4. Normocytic anemia with granulocytosis. 5. Hypercarbia and hypercapnia. 6. Carbon dioxide narcosis. 7. Severe respiratory acidosis and hypoxemia. 8. Metabolic alkalosis. 9. Hyperglycemia. 10. Transaminitis. 11. Mild acute exacerbation of right-sided diastolic congestive heart failure with elevated BNP. 12. Indeterminate troponin. 13. Sinus tachycardia. 14. Left axis deviation. 15. Ventilator-dependent respiratory failure. 16. History of hypertension, hyperlipidemia, hypothyroidism, hypovitaminosis D. 17.Mild oropharyngeal dysphagia with dxx-gw-eruazlfo risk for aspiration due to minimal fatigue, minimal oral residue, missing teeth and multiple swallows needed per single bolus PLAN AT THIS TIME: The patient has been ordered iron studies. B12, folate, erythropoietin, iron, ferritin, TIBC ordered. After those are drawn, the patient will be ordered 1 unit of PRBC transfusion. Serial labs are ordered. Consultation; Cardiology, Gastroenterology, Infectious Disease, ENT, Neurology, Pulmonary. Current medications: Aspirin 325 daily, Atrovent nebulizer 0.5 mg every 6 hours tnzjy-ftk-usyog every 2 hours p.r.n., D5 normal saline at 100 mL an hour, Drisdol 50,000 weekly, Lipitor 10 mg daily, Lovenox 40 mg subcu daily, magnesium sulfate 1 g ordered, MiraLax 17 g daily, morphine 1 mg IV every 6 hours p.r.n., K-phos rider and IV potassium riders ordered. The patient is on Protonix 40 IV every 12 hours, Pulmicort nebulizer 1 mg every 12 hours, Tylenol suppository p.r.n., Xopenex nebulizer 0.63 mg four times a day and every 2 hours p.r.n., Zofran 4 IV every 4 hours p.r.n. At present, the patient has been ordered transfusion of 1 unit of PRBC. The patient will be awaiting clearance by Pulmonary and Gastroenterology regarding discharge to long-term acute care hospitalization. The patient's condition, diagnosis, updates discussed with the patient's daughter, Brigitte, at length and all questions concerned answered. Time spent more than 35 minutes. Dictated and electronically signed, not read. Garett Rodríguez MD [facility] # [id number] MIG[facility]
[2018-01-01 16:31] VITALS: TEMP 98.9
[2018-01-01 20:03] VITALS: BP 124/72; PULSE 86; O2SAT 99
== END 2018-01-01 20:23 | DRG 4 ==
LOC: ED 11:55 → ERH 14:54 → CCU 19:05
PROVIDERS: ADMIT Internal Medicine; ATTEND Internal Medicine
PROC: 5A1945Z Respiratory Ventilation, 24-96 Consecutive Hours (ICD-10-PCS; 2017-12-16)
PROC: 0BH17EZ Insertion of Endotracheal Airway into Trachea, Via Natural or Artificial Opening (ICD-10-PCS; 2017-12-16)
PROC: 5A09457 Assistance with Respiratory Ventilation, 24-96 Consecutive Hours, Continuous Positive Airway Pressure (ICD-10-PCS; 2017-12-18)
PROC: 5A1955Z Respiratory Ventilation, Greater than 96 Consecutive Hours (ICD-10-PCS; 2017-12-23)
PROC: 0BH18EZ Insertion of Endotracheal Airway into Trachea, Via Natural or Artificial Opening Endoscopic (ICD-10-PCS; 2017-12-23)
PROC: 05HN33Z Insertion of Infusion Device into Left Internal Jugular Vein, Percutaneous Approach (ICD-10-PCS; 2017-12-23)
PROC: B544ZZA Ultrasonography of Left Jugular Veins, Guidance (ICD-10-PCS; 2017-12-23)
PROC: 3E043XZ Introduction of Vasopressor into Central Vein, Percutaneous Approach (ICD-10-PCS; 2017-12-23)
PROC: 4A023N7 Measurement of Cardiac Sampling and Pressure, Left Heart, Percutaneous Approach (ICD-10-PCS; 2017-12-25)
PROC: B2151ZZ Fluoroscopy of Left Heart using Low Osmolar Contrast (ICD-10-PCS; 2017-12-25)
PROC: B2111ZZ Fluoroscopy of Multiple Coronary Arteries using Low Osmolar Contrast (ICD-10-PCS; 2017-12-25)
PROC: 0B110F4 Bypass Trachea to Cutaneous with Tracheostomy Device, Open Approach (ICD-10-PCS; principal; 2017-12-30 13:00)
PROC: 0DH63UZ Insertion of Feeding Device into Stomach, Percutaneous Approach (ICD-10-PCS; 2018-01-01)
PROC: 30233N1 Transfusion of Nonautologous Red Blood Cells into Peripheral Vein, Percutaneous Approach (ICD-10-PCS; 2018-01-01)
DX: J96.02 Acute respiratory failure with hypercapnia (principal); A41.9 Sepsis, unspecified organism; J18.9 Pneumonia, unspecified organism; I50.43 Acute on chronic combined systolic (congestive) and diastolic (congestive) heart failure; G92 Toxic encephalopathy; R65.20 Severe sepsis without septic shock; I21.4 Non-ST elevation (NSTEMI) myocardial infarction; J44.1 Chronic obstructive pulmonary disease with (acute) exacerbation; J98.11 Atelectasis; E44.0 Moderate protein-calorie malnutrition; E87.4 Mixed disorder of acid-base balance; J44.0 Chronic obstructive pulmonary disease with (acute) lower respiratory infection; I47.2 Ventricular tachycardia; I47.1 Supraventricular tachycardia; J95.851 Ventilator associated pneumonia; Z99.11 Dependence on respirator [ventilator] status; J96.01 Acute respiratory failure with hypoxia; I27.20 Pulmonary hypertension, unspecified; I11.0 Hypertensive heart disease with heart failure; E03.9 Hypothyroidism, unspecified; K21.9 Gastro-esophageal reflux disease without esophagitis; E55.9 Vitamin D deficiency, unspecified; I16.0 Hypertensive urgency; I25.10 Atherosclerotic heart disease of native coronary artery without angina pectoris; E78.5 Hyperlipidemia, unspecified; D64.9 Anemia, unspecified; R73.9 Hyperglycemia, unspecified; E87.6 Hypokalemia; E66.9 Obesity, unspecified; E83.51 Hypocalcemia; E83.39 Other disorders of phosphorus metabolism; R13.12 Dysphagia, oropharyngeal phase; M47.9 Spondylosis, unspecified; R59.9 Enlarged lymph nodes, unspecified; K59.00 Constipation, unspecified; J20.9 Acute bronchitis, unspecified; Y95 Nosocomial condition; M40.209 Unspecified kyphosis, site unspecified; I08.1 Rheumatic disorders of both mitral and tricuspid valves; F17.200 Nicotine dependence, unspecified, uncomplicated; E83.42 Hypomagnesemia; K31.9 Disease of stomach and duodenum, unspecified; E87.5 Hyperkalemia; Y84.8 Other medical procedures as the cause of abnormal reaction of the patient, or of later complication, without mention of misadventure at the time of the procedure; Z78.1 Physical restraint status; Z79.82 Long term (current) use of aspirin; Z68.31 Body mass index [BMI] 31.0-31.9, adult; Z80.7 Family history of other malignant neoplasms of lymphoid, hematopoietic and related tissues; Z80.1 Family history of malignant neoplasm of trachea, bronchus and lung